=== PATIENT | female | born 1990 | race Caucasian/White ===

== ENCOUNTER → 2020-09-04 15:00 | Outpatient (CLI) | payer BC, SELFPAY ==
[2020-09-04 14:04] VITALS: BMI 40.3
[2020-09-04 18:39] LABS: Amphetamine Urine VISTA NEGATIVE (<1000 ng/mL); Barbiturate Urine VISTA NEGATIVE (< 200 ng/mL); Benzodiazepine Urine VISTA NEGATIVE (< 200 ng/mL); Cocaine Urine VISTA NEGATIVE (< 300 ng/mL); Ecstacy Urine VISTA NEGATIVE (< 500 ng/mL); Methadone Urine VISTA NEGATIVE (< 300 ng/mL); PCP Urine VISTA NEGATIVE (< 25 ng/mL); THC Urine VISTA NEGATIVE (< 50 ng/mL); Vista UDS pH Range 7
[2020-09-07 07:07] LABS: Chlamydia By Nucleic Acid AMP Negative (Negative)
[2020-09-07 08:43] LABS: Gonococcus By Nucleic Acid AMP Negative (Negative)
[2020-09-07 20:24] LABS: HPV APTIMA, High Risk Negative (Negative)
== END ==
PROVIDERS: PCP Family Medicine; Referring Provider Obstetrics & Gynecology; Visit Provider Obstetrics & Gynecology
DX: Z12.4 Encounter for screening for malignant neoplasm of cervix (principal); Z11.3 Encounter for screening for infections with a predominantly sexual mode of transmission; Z34.90 Encounter for supervision of normal pregnancy, unspecified, unspecified trimester
CPT/HCPCS: 80307; 87086; 87088; 87491; 87591; 87624; 88175; G0145

== ENCOUNTER → 2020-09-14 16:34 | Outpatient (CLI) | payer BC, SELFPAY ==
[2020-09-04 14:04] VITALS: BMI 40.3
[2020-09-14 17:11] LABS: Absolute Lymphocyte Count 2.31 X10^3/uL (0.83-4.51); Absolute Neutrophil Count 8.4 X10^3/uL (2.0-7.7); Basophil# 0.03 X10^3/uL; Basophil% 0.3 % (0-1); Eosinophil# 0.08 X10^3/uL; Eosinophils% 0.7 % (0-5); Hematocrit 38.7 % (37-47); Hemoglobin 12.2 g/dL (12.0-15.0); Lymphocyte # 2.31 X10^3/ul (4.0); Lymphocyte % 19.9 % (19-41); Mean Corp Hgb Conc 31.5 g/dL (32-36); Mean Corpuscular Hgb 26.4 pg (27.0-32.0); Mean Corpuscular Volume 83.8 fL (81-99); Mean Platelet Vol. 10.8 fl (6.2-12.0); Monocyte# 0.69 X10^3/uL; NRBC Flagged by Analyzer 0 % (0-5); Neutrophil # 8.41 X10^3/uL (2.7-7.7); Neutrophil % 72.6 % (47-70); Platelet Count 300 K/mm3 (150-450); RBC Distribution Width CV 14.4 % (11.6-14.6); RBC Distribution Width SD 43.9 fl (35.1-43.9); Red Blood Count 4.62 M/mm3 (4.2-5.4); White Blood Count 11.6 K/mm3 (4.4-11.0)
[2020-09-14 17:23] LABS: Glucose Challenge Gest 1H 50g 116 mg/dL (70-140)
[2020-09-14 17:48] LABS: NATERA MAILED SPECIMEN
[2020-09-15 09:53] LABS: HIV - WCH Non-Reactive (Nonreactive); Hepatitis B Surface Antigen Non-Reactive (Nonreactive); Hepatitis C Antibody Non-Reactive (Nonreactive); Rubella IgG Reactive (Nonreactive)
== END ==
PROVIDERS: PCP Family Medicine; Referring Provider Obstetrics & Gynecology; Visit Provider Obstetrics & Gynecology
DX: Z34.81 Encounter for supervision of other normal pregnancy, first trimester (principal); Z31.430 Encounter of female for testing for genetic disease carrier status for procreative management
CPT/HCPCS: 36415; 82950; 85025; 86703; 86762; 86803; 86850; 86900; 86901; 87340

== ENCOUNTER → 2020-10-09 14:10 | Outpatient (CLI) | payer BC, SELFPAY ==
[2020-10-04 14:48] VITALS: BMI 39.9
== END ==
PROVIDERS: PCP Family Medicine; Referring Provider Obstetrics & Gynecology; Visit Provider Obstetrics & Gynecology
DX: U07.1 COVID-19 (principal)
CPT/HCPCS: 87635; C9803; U0002

== ENCOUNTER → 2020-11-10 15:59 | Outpatient (CLI) | payer BC, SELFPAY ==
[2020-10-04 14:48] VITALS: BMI 39.9
[2020-11-01 11:15] VITALS: BMI 40.8
--- NOTE | 2020-11-10 16:08 | US_ITS ---
STUDY: SECOND AND THIRD TRIMESTER OBSTETRICAL ULTRASOUND REASON FOR EXAM: Female, 30 years old anatomy LMP: 06/30/2020 TECHNIQUE: Transabdominal and Transvaginal TECHNICAL QUALITY: Adequate. PRIOR ULTRASOUND: None. FINDINGS: There is a single intrauterine fetus. The fetus is in a cephalic presentation. There is demonstrated cardiac activity with a heart rate of 141 bpm. There is a normal amniotic fluid volume. The largest amniotic fluid pocket measures 5.12 cm. The amniotic fluid index (MIKE) is within normal limits. The placenta is anterior in location and is not low lying. There are Grade 0 placental changes. The cervix measures 4.3 cm in length. The adnexal regions are not visualized. BIOMETRY: BPD: 4.31 cm: 19 weeks, 0 days HC: 16.43 cm: 19 weeks, 1 days AC: 13.25 cm: 18 weeks, 5 days FL: 2.82 cm: 18 weeks, 4 days CI: 75.4% FL/BPD: 65.3% FL/HC: FL/AC: 21.3% HC/AC: 1.24 age by current US: 18 weeks, 5 days. MEET by current US: 04/08/2021. Estimated weight: 255 grams, +/- 30 grams, 31.2 %. Age by LMP: 19 weeks, 0 days. MEET by LMP: 04/06/2021. ANATOMY: Gender: Male Cranium: Normal lateral ventricles. Normal choroid plexus. Normal cerebellum. Normal cisterna magna. Suboptimal visualization. Chest: Normal 4-chamber heart. Abdomen/Pelvis: Normal diaphragm. Normal stomach. Normal abdominal wall. Normal cord insertion. Normal 3 vessel cord. Normal kidneys. Normal bladder. Spine: Suboptimal visualization due to maternal body habitus. Extremities: Normal bilateral upper extremities. Normal bilateral lower extremities. US/OB Anatomy Scan IMPRESSION: Single live intrauterine gestation with a mean gestational age of 18 weeks and 5 days. Follow-up recommended for assessment of the face/nose and lips as well as the spine. Electronically Signed: Seymour Murray MD at 9:18 EDT , Service support ,
== END ==
PROVIDERS: PCP Family Medicine; Referring Provider Obstetrics & Gynecology; Visit Provider Obstetrics & Gynecology
DX: Z34.90 Encounter for supervision of normal pregnancy, unspecified, unspecified trimester (principal)
CPT/HCPCS: 76805; 76817

== ENCOUNTER → 2020-11-20 13:51 | Outpatient (CLI) | payer BC, SELFPAY ==
[2020-11-01 11:15] VITALS: BMI 40.8
--- NOTE | 2020-11-20 13:56 | US_ITS ---
STUDY: SECOND AND THIRD TRIMESTER OBSTETRICAL ULTRASOUND - LIMITED REASON FOR EXAM: Female, 30 years old follow up anatomy images LMP: 06/30/2020. PRIOR ULTRASOUND: Comparison is made with prior study dated 11/10/2020. TECHNIQUE: Transabdominal TECHNICAL QUALITY: Adequate. FINDINGS: There is a single intrauterine fetus. The fetus is in a breech presentation. There is demonstrated cardiac activity with a heart rate of 150 bpm. There is a normal amniotic fluid volume. The largest amniotic fluid pocket measures 3.7 cm. The amniotic fluid index (MIKE) is within normal limits. The placenta is anterior in location and is not low lying. There are Grade 0 placental changes. The cervix measures 4.6 cm in length. BIOMETRY: Age by LMP: 20 weeks, 3 days. MEET by LMP: 04/06/2021. age by prior US: 20 weeks, 1 days. MEET by prior US: 04/08/2021. Evaluation of the face/nose/lips was obtained. No abnormality is seen. Suboptimal visualization of the lumbar and sacral region due to positioning. US/OB Limited (No Biometrics) IMPRESSION: Intrauterine gestation with a mean gestational age of 20 weeks and 1 day. Electronically Signed: Seymour Murray MD at 14:03 EDT , Service support ,
== END ==
PROVIDERS: PCP Family Medicine; Referring Provider Obstetrics & Gynecology; Visit Provider Obstetrics & Gynecology
DX: Z34.82 Encounter for supervision of other normal pregnancy, second trimester (principal); Z3A.17 17 weeks gestation of pregnancy
CPT/HCPCS: 76815

== ENCOUNTER → 2020-12-07 07:51 | Outpatient (CLI) | payer BC, SELFPAY ==
[2020-11-01 11:15] VITALS: BMI 40.8
[2020-12-01 15:30] VITALS: BMI 40.8
--- NOTE | 2020-12-07 07:54 | US_ITS ---
STUDY: SECOND AND THIRD TRIMESTER OBSTETRICAL ULTRASOUND - LIMITED REASON FOR EXAM: Female, 30 years old follow up anatomy-lumbar /sacral spine views LMP: 06/30/2020. PRIOR ULTRASOUND: Comparison is made with prior examination dated 11/20/2020. TECHNIQUE: Transabdominal TECHNICAL QUALITY: Adequate. FINDINGS: There is a single intrauterine fetus. The fetus is in a breech presentation. There is demonstrated cardiac activity with a heart rate of 155 bpm. There is a normal amniotic fluid volume. The largest amniotic fluid pocket measures 4.5 cm x 4.8 cm. The amniotic fluid index (MIKE) is within normal limits. The placenta is anterior in location and is not low lying. There are Grade 0 placental changes. The cervix measures 4.4 cm in length. Repeat imaging of the lumbar spine and sacrum was performed. These are normal. US/OB Limited (No Biometrics) IMPRESSION: Normal reexamination of the lumbar spine and sacrum. Electronically Signed: Seymour Murray MD at 9:19 EDT , Service support ,
== END ==
PROVIDERS: PCP Family Medicine; Referring Provider Obstetrics & Gynecology; Visit Provider Obstetrics & Gynecology
DX: Z34.82 Encounter for supervision of other normal pregnancy, second trimester (principal)
CPT/HCPCS: 76815

== ENCOUNTER → 2021-01-12 09:03 | Outpatient (CLI) | payer BC, SELFPAY ==
[2020-10-04 14:48] VITALS: BMI 39.9
[2021-01-12 08:32] VITALS: BMI 40.8
--- NOTE | 2021-01-12 09:05 | US_ITS ---
STUDY: SECOND AND THIRD TRIMESTER OBSTETRICAL ULTRASOUND - LIMITED REASON FOR EXAM: Female, 30 years old Growth- Covid affecting LMP: 06/30/2020. PRIOR ULTRASOUND: Comparison is made with prior examination dated 12/07/2020. TECHNIQUE: Transabdominal TECHNICAL QUALITY: Adequate. FINDINGS: There is a single intrauterine fetus. The fetus is in a cephalic presentation. There is demonstrated cardiac activity with a heart rate of 139 bpm. There is a normal amniotic fluid volume. The largest amniotic fluid pocket measures 5.1 cm x 9.8 cm. The amniotic fluid index (MIKE) is within normal limits. The placenta is anterior in location and is not low lying. There are Grade 0 placental changes. The cervix measures 4.2 cm in length. BIOMETRY: BPD: 6.94 cm: 28 weeks, 0 days HC: 26.87 cm: 29 weeks, 3 days AC: 24.34 cm: 28 weeks, 5 days FL: 5.38 cm: 28 weeks, 4 days Age by LMP: 28 weeks, 0 days. MEET by LMP: 04/06/2021. age by prior US: 27 weeks, 5 days. MEET by prior US: 04/08/2021. age by current US: 28 weeks, 5 days. MEET by current US: 04/01/2021. Estimated weight: 1251 grams, +/- 183 grams, 61 percentile. US/OB Limited With Biometrics IMPRESSION: Single live intrauterine gestation with a mean gestational age of 27 weeks and 5 days. The measurements obtained today follow within normal expected range. Electronically Signed: Seymour Murray MD at 12:28 EDT , Service support ,
[2021-01-12 09:10] LABS: Absolute Lymphocyte Count 2.48 X10^3/uL (0.83-4.51); Absolute Neutrophil Count 9.5 X10^3/uL (2.0-7.7); Basophil# 0.04 X10^3/uL; Basophil% 0.3 % (0-1); Eosinophil# 0.12 X10^3/uL; Eosinophils% 0.9 % (0-5); Hematocrit 34.4 % (37-47); Hemoglobin 10.9 g/dL (12.0-15.0); Lymphocyte # 2.48 X10^3/ul (0.83-4.51); Mean Corp Hgb Conc 31.7 g/dL (32-36); Mean Corpuscular Volume 85.4 fL (81-99); Mean Platelet Vol. 10.6 fl (6.2-12.0); Monocyte# 0.85 X10^3/uL; Monocyte% 6.5 % (0-10); NRBC Flagged by Analyzer 0 % (0-5); Neutrophil # 9.46 X10^3/uL (2.7-7.7); Neutrophil % 72.7 % (47-70); Platelet Count 257 K/mm3 (150-450); RBC Distribution Width CV 14.9 % (11.6-14.6); RBC Distribution Width SD 46.1 fl (35.1-43.9); Red Blood Count 4.03 M/mm3 (4.2-5.4)
[2021-01-12 09:46] LABS: Glucose Challenge Gest 1H 50g 125 mg/dL (70-140)
[2021-01-12 10:01] LABS: Syphilis Antibodies Non-reactive
== END ==
PROVIDERS: Obstetrics & Gynecology; PCP Family Medicine; Referring Provider Obstetrics & Gynecology; Visit Provider Obstetrics & Gynecology
DX: O98.519 Other viral diseases complicating pregnancy, unspecified trimester (principal); U07.1 COVID-19; Z13.1 Encounter for screening for diabetes mellitus; O26.892 Other specified pregnancy related conditions, second trimester; Z67.91 Unspecified blood type, Rh negative; Z3A.00 Weeks of gestation of pregnancy not specified
CPT/HCPCS: 36415; 76816; 82950; 85025; 86780; 86850; 86900; 86901

== ENCOUNTER → 2021-02-08 08:58 | Outpatient (CLI) | payer BC, SELFPAY ==
[2020-10-04 14:48] VITALS: BMI 39.9
[2021-02-08 08:24] VITALS: BMI 40.8
--- NOTE | 2021-02-08 09:01 | US_ITS ---
STUDY: SECOND AND THIRD TRIMESTER OBSTETRICAL ULTRASOUND - LIMITED REASON FOR EXAM: Female, 30 years old routine survey, history of Covid LMP: 06/30/2020 PRIOR ULTRASOUND: 01/12/2021 TECHNIQUE: Transabdominal TECHNICAL QUALITY: Adequate. FINDINGS: There is a single intrauterine fetus. The fetus is in a cephalic presentation. There is demonstrated cardiac activity with a heart rate of 141 bpm. There is a normal amniotic fluid volume. The largest amniotic fluid pocket measures 5.2 cm. The amniotic fluid index (MIKE) is 14.8 cm. The placenta is anterior in location and is not low lying. There are Grade 2 placental changes. The cervix measures 3.8 cm in length. BIOMETRY: BPD: 8.0 cm: 32 weeks, 1 days HC: 30 cm: 33 weeks, 1 days AC: 28.2 cm: 32 weeks, 1 days FL: 6.4 cm: 32 weeks, 6 days Age by LMP: 31 weeks, 6 days. MEET by LMP: 04/06/2021. age by prior US: 32 weeks, 4 days. MEET by prior US: 04/01/2021. age by current US: 32 weeks, 3 days. MEET by current US: 04/02/2021. Estimated weight: 1989 grams, +/- 298 grams, 60 percentile. US/OB Limited With Biometrics IMPRESSION: Single live intrauterine at 32 weeks, 3 days by current ultrasound with MEET of 04/02/2021. Heart rate at 141 bpm. No suspicious sonographic findings, normal growth noted since the previous study Electronically Signed: Benjamin Gutierrez MD at 8:26 EDT , Service support ,
== END ==
PROVIDERS: PCP Family Medicine; Referring Provider Obstetrics & Gynecology; Visit Provider Obstetrics & Gynecology
DX: O98.519 Other viral diseases complicating pregnancy, unspecified trimester (principal); U07.1 COVID-19; Z3A.00 Weeks of gestation of pregnancy not specified
CPT/HCPCS: 76816

== ENCOUNTER → 2021-02-22 09:24 | Outpatient (CLI) | payer BC, SELFPAY ==
[2021-02-22 09:07] VITALS: BMI 40.8
[2021-02-22 09:48] LABS: Absolute Lymphocyte Count 2.01 X10^3/uL (0.83-4.51); Absolute Neutrophil Count 8.8 X10^3/uL (2.0-7.7); Basophil# 0.03 X10^3/uL; Basophil% 0.2 % (0-1); Eosinophils% 0.8 % (0-5); Hematocrit 35.5 % (37-47); Hemoglobin 11.5 g/dL (12.0-15.0); Lymphocyte # 2.01 X10^3/ul (0.83-4.51); Lymphocyte % 16.7 % (19-41); Mean Corp Hgb Conc 32.4 g/dL (32-36); Mean Corpuscular Hgb 28.2 pg (27.0-32.0); Mean Platelet Vol. 10.5 fl (6.2-12.0); Monocyte# 0.97 X10^3/uL; NRBC Flagged by Analyzer 0 % (0-5); Neutrophil # 8.84 X10^3/uL (2.7-7.7); Neutrophil % 73.4 % (47-70); Platelet Count 233 K/mm3 (150-450); RBC Distribution Width CV 14.8 % (11.6-14.6); RBC Distribution Width SD 47.3 fl (35.1-43.9); Red Blood Count 4.08 M/mm3 (4.2-5.4); White Blood Count 12.1 K/mm3 (4.4-11.0)
[2021-02-22 17:34] LABS: Xtra Tube EP Lab EXTRA TUBE
== END ==
PROVIDERS: Obstetrics & Gynecology; PCP Family Medicine; Referring Provider Nurse Practitioner Women's Health; Visit Provider Nurse Practitioner Women's Health
DX: O99.019 Anemia complicating pregnancy, unspecified trimester (principal); D64.9 Anemia, unspecified; Z3A.00 Weeks of gestation of pregnancy not specified
CPT/HCPCS: 36415; 85025

== ENCOUNTER → 2021-03-08 08:05 | Outpatient (CLI) | payer BC, SELFPAY ==
[2020-10-04 14:48] VITALS: BMI 39.9
--- NOTE | 2021-03-08 08:09 | US_ITS ---
STUDY: SECOND AND THIRD TRIMESTER OBSTETRICAL ULTRASOUND - LIMITED REASON FOR EXAM: Female, 30 years old Growth- Covid affecting LMP: 06/30/2020. PRIOR ULTRASOUND: Comparison is made with prior examination dated 02/08/2021. TECHNIQUE: Transabdominal TECHNICAL QUALITY: Adequate. FINDINGS: There is a single intrauterine fetus. The fetus is in a cephalic presentation. There is demonstrated cardiac activity with a heart rate of 147 bpm. There is a normal amniotic fluid volume. The largest amniotic fluid pocket measures 5.06 cm. The amniotic fluid index (MIKE) is 16.3 cm. The placenta is anterior in location and is not low lying. There are Grade 3 placental changes. The cervix measures 4.5 cm in length. BIOMETRY: BPD: 8.66 cm: 34 weeks, 6 days HC: 32.83 cm: 37 weeks, 2 days AC: 32.21 cm: 36 weeks, 0 days FL: 7.22 cm: 36 weeks, 6 days Age by LMP: 35 weeks, 6 days. MEET by LMP: 04/06/2021. age by prior US: 36 weeks, 3 days. MEET by prior US: 04/02/2021. age by current US: 36 weeks, 1 days. MEET by current US: 04/04/2021. Estimated weight: 2898 grams, +/- 435 grams, 62 percentile. US/OB Limited With Biometrics IMPRESSION: Single live intrauterine gestation with a mean gestational age of 36 weeks and 3 days. The measurements obtained today fall within the normal expected range. Electronically Signed: Seymour Murray MD at 13:49 EDT , Service support ,
== END ==
PROVIDERS: PCP Family Medicine; Referring Provider Obstetrics & Gynecology; Visit Provider Obstetrics & Gynecology
DX: O98.519 Other viral diseases complicating pregnancy, unspecified trimester (principal); U07.1 COVID-19; Z3A.36 36 weeks gestation of pregnancy
CPT/HCPCS: 76816

== ENCOUNTER → 2021-03-15 10:50 | Outpatient (CLI) | payer BC, SELFPAY | PROVIDERS: PCP Family Medicine; Referring Provider Obstetrics & Gynecology; Visit Provider Obstetrics & Gynecology | DX: Z34.82 Encounter for supervision of other normal pregnancy, second trimester (principal) | CPT/HCPCS: 87081 ==

== ENCOUNTER 2021-04-13 18:45 | Inpatient (IN) | payer BC, SELFPAY ==
[2021-04-13 19:32] VITALS: BP 121/69; PULSE 82; TEMP 37.1; O2SAT 98
[2021-04-13 19:42] VITALS: BMI 44.0
[2021-04-13] MEDS: Lactated Ringers 1,000 ML 50 ML IV (19:55)
[2021-04-13 20:15] LABS: Absolute Lymphocyte Count 1.77 X10^3/uL (0.83-4.51); Basophil# 0.03 X10^3/uL; Basophil% 0.3 % (0-1); Eosinophil# 0.06 X10^3/uL; Eosinophils% 0.6 % (0-5); Hemoglobin 11.8 g/dL (12.0-15.0); Lymphocyte # 1.77 X10^3/ul (0.83-4.51); Lymphocyte % 16.4 % (19-41); Mean Corp Hgb Conc 32.8 g/dL (32-36); Mean Corpuscular Hgb 28.2 pg (27.0-32.0); Mean Corpuscular Volume 85.9 fL (81-99); Mean Platelet Vol. 11.3 fl (6.2-12.0); Monocyte# 0.87 X10^3/uL; NRBC Flagged by Analyzer 0 % (0-5); Neutrophil # 8.03 X10^3/uL (2.7-7.7); Neutrophil % 74.1 % (47-70); Platelet Count 223 K/mm3 (150-450); RBC Distribution Width CV 14.9 % (11.6-14.6); Red Blood Count 4.19 M/mm3 (4.2-5.4); White Blood Count 10.8 K/mm3 (4.4-11.0)
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
[2021-04-13] MEDS: miSOPROStol 25 MCG TABLET PO (20:44)
[2021-04-13 21:09] VITALS: BP 134/72; PULSE 70; TEMP 36.6; O2SAT 97
[2021-04-14] VITALS (61 sets, daily range): BP systolic 110–149; BP diastolic 52–84; PULSE 49–90; RESP 18; TEMP 36.2–37.5; O2SAT 83–100
[2021-04-14] MEDS: miSOPROStol 50 MCG TABLET PO (01:25)
[2021-04-14] MEDS: miSOPROStol 25 MCG TABLET PO (07:23)
[2021-04-14] MEDS: 0.9% Normal Saline Single 100 ML IV.SOLN. INTRA-UTER (09:01)
--- NOTE | 2021-04-14 09:21 | PCM.PN.BLA ---
Progress Note Patient seen and examined. Has received cytotec x3. cervix /-3. Roberson bulb placed without difficulty. Will continue with cytotec while FB in place. FHT Cat I. Occasional ctx on toco, but patient not uncomfortable. Patient with isolated elevated BP - will send labs if continue to be elevated. Continue current plan of care.
[2021-04-14] MEDS: Oxytocin 30 units/NS 500 ml 30 UNITS/500 ML IV.SOLN IV (11:31)
[2021-04-14] MEDS: Lactated Ringers 500 ML 999 ML IV ×3 (11:43→15:43)
--- NOTE | 2021-04-14 13:13 | NURSING ---
Jaquelin NGUYEN unable to enter epidural orders due to [facility] spelling error - this nurse entered orders for her under direction of Andrzej
[2021-04-14] MEDS: fentaNYL-bupivacaine (epidural) 100 ML BAG EPIDURAL (13:38)
[2021-04-14] MEDS: Ondansetron 4 MG/2 ML Vial IV (15:34)
--- NOTE | 2021-04-14 16:35 | PCM.PN.BLA ---
Progress Note Came to bedside to evaluate due to deep variable decelerations. Pitocin turned off. Oxygen in place. Patient repositioned in hands and knees. Decelerations resolved, but still periods of minimal variability. Cervix rechecked - remains . Small amount of cervical swelling noted. Will reposition on side with peanut ball. Will restart pitocin when able.
[2021-04-14] MEDS: Oxytocin 30 units/NS 500 ml 30 UNITS/500 ML IV.SOLN 334 UNITS IV (19:04)
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
--- NOTE | 2021-04-14 19:25 | PCM.DC ---
Discharge Instructions Diet Discharge Diet: No restrictions Activity Discharge Activity: Return to Normal Activity, May Not Drive (while taking narcotic pain medications.) and May Shower May resume sexual activity in: 4-6 weeks Dressing / Incision Call your doctor if your incision/area has: Continuous Slow Oozing, Sudden Increased Bleeding, Increased Pain/ Swelling, Increased Redness and Foul Smelling Discharge Follow Up Care When: Call to make an appointment with your doctor in 6 weeks. If you had elevated Blood Pressure or 4th degree laceration you will need to be seen in 2 weeks. Test Results: Test results from this visit will be discussed in further detail at your follow-up appointment, if applicable. Discharge Plan Admission Admit Date/Time: 04/13/21 18:45 Primary Reason for Your Visit: Induction Attending Provider: Alva Brown Primary Care Provider: Chu Rincon Discharge Orders/Prescriptions Prescriptions: New ibuprofen 800 mg tablet 800 mg PO Q8H PRN (Reason: pain) Qty: 60 RF: 1 Continued PNV-DHA 27 mg iron-1 mg -300 mg capsule 1 cap PO DAILY RF: 0 omeprazole 20 mg capsule,delayed release(DR/EC) 20 mg PO DAILY RF: 0 Baby Aspirin 81 mg OTHER DAILY RF: 0 Referrals / Follow Up: Chu Rincon MD [Primary Care Provider] - Disposition Disposition (needs filled in before D/C Order can be placed): Home, Self Care
[2021-04-14] MEDS: Ibuprofen 600 MG Tablet PO (20:06)
[2021-04-15] MEDS: Acetaminophen 500 MG Tablet 1000 MG PO (01:50)
[2021-04-15 04:05] VITALS: BP 123/61; PULSE 66; RESP 16; TEMP 36.3
[2021-04-15 08:22] VITALS: BP 122/60; PULSE 68; RESP 16; TEMP 36.8
[2021-04-15] MEDS: Aspirin 81 MG TAB.CHEW PO (08:25)
[2021-04-15] MEDS: Pantoprazole Sodium 20 MG Tablet PO (09:56)
--- NOTE | 2021-04-15 10:12 | PCM.PN.OB ---
Subjective Subjective Patient doing well without complaints. Tolerating PO. Ambulating and voiding without difficulty. Breast feeding well. Denies chest pain, shortness of breath, calf pain/swelling, fevers, chills, lightheadedness. Objective Data Objective Data Vital Signs: Vital Signs Temp Pulse Resp BP Pulse Ox 98.2 F 68 16 122/60 H 100 04/15/21 08:22 04/15/21 08:22 04/15/21 08:22 04/15/21 08:22 04/14/21 18:14 Oxygen Delivery Method Room Air Weight: 298 lb 8.094 oz Body Mass Index (BMI) 44.0 Intake & Output: Intake and Output for Last 24 Hours 04/13/21 04/14/21 04/15/21 23:59 23:59 23:59 Intake Total 145 / 145 5231.73 / 5231.73 Output Total 800 / 800 400 / 400 Balance 145 / 145 4431.73 / 4431.73 -400 / -400 Lab / Micro Data Result Diagrams: 04/13/21 19:55 Labs: Laboratory Results - last 24 hr 04/14/21 21:45: Screen Cancelled, Baby's Blood Type Cancelled, Baby's SAGE Cancelled 04/14/21 22:20: Screen NEGATIVE, Baby's Blood Type A POSITIVE, Baby's SAGE NEGATIVE Micro: Microbiology 04/13/21 20:00 Nasal Secretion SARS-CoV-2 Antigen (Rapid) - Final ROS Constitutional Constitutional: Denies fever(s) Cardiovascular Cardiovascular: Denies chest pain, dyspnea or lightheadedness Gastrointestinal Gastrointestinal: Reports abdominal pain; Denies constipation or diarrhea Neurologic Neurologic: Denies dizziness or headache(s) Physical Exam Const alert, oriented x3, no apparent distress, average body habitus, healthy appearing and well nourished HEENT normocephalic Head and Scalp: atraumatic Eyes PERRL and EOMs intact bilaterally Neck full ROM Lymph Lymphatic: no lymphadenopathy noted Resp normal respiratory effort, no retractions and no use of accessory muscles Cardio regular rate GI soft to palpation, non-tender and non-distended Palpation: other Other Details: fundus firm Extremity normal to inspection and no clubbing, cyanosis or edema Skin no rashes or lesions noted Neuro no focal motor deficits and no sensory deficits noted Psych mental status grossly normal, affect normal and speech normal Assessment & Plan (1) Vaginal delivery: COMMENT: GP IOL LT 04/14 [place] PLAN: s/p PPD # 1 1. routine post delivery care 2. breast feeding- support given 3. rh negative 4. rubella immune
[2021-04-15 12:10] VITALS: BP 127/50; PULSE 75; RESP 16; TEMP 36.4
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
[2021-04-15 16:16] VITALS: BP 139/60; PULSE 78; RESP 16; TEMP 36.8
[2021-04-15] MEDS: Ibuprofen 600 MG Tablet PO (16:26)
[2021-04-15 17:10] VITALS: BP 126/65; PULSE 77
[2021-04-15 20:44] VITALS: BP 136/64; PULSE 64; RESP 18; TEMP 36.6; O2SAT 98
[2021-04-15] MEDS: Benzocaine/Lanolin/Aloe Vera 1 SPRAY EACH TOPICAL (20:51)
[2021-04-16 02:22] VITALS: BP 128/67; PULSE 72; RESP 18; TEMP 36.6; O2SAT 95
[2021-04-16] MEDS: Ibuprofen 600 MG Tablet PO (05:16)
--- NOTE | 2021-04-16 07:48 | PN.OBGYN_ITS ---
Subjective Subjective Patient doing well without complaints. Tolerating PO. Ambulating and voiding without difficulty. Breast feeding well. Denies chest pain, shortness of breath, calf pain/swelling, fevers, chills, lightheadedness. Objective Data Objective Data Vital Signs: Vital Signs Temp Pulse Resp BP Pulse Ox 97.8 F 72 18 128/67 H 95 04/16/21 02:22 04/16/21 02:22 04/16/21 02:22 04/16/21 02:22 04/16/21 02:22 Oxygen Delivery Method Room Air Weight: 298 lb 8.094 oz Body Mass Index (BMI) 44.0 Intake & Output: Intake and Output for Last 24 Hours 04/14/21 04/15/21 04/16/21 23:59 23:59 23:59 Intake Total 5231.73 / 5231.73 Output Total 800 / 800 400 / 400 Balance 4431.73 / 4431.73 -400 / -400 Lab / Micro Data Result Diagrams: 04/13/21 19:55 Micro: Microbiology 04/13/21 20:00 Nasal Secretion SARS-CoV-2 Antigen (Rapid) - Final ROS Constitutional Constitutional: Denies fever(s) Cardiovascular Cardiovascular: Denies chest pain, dyspnea or lightheadedness Gastrointestinal Gastrointestinal: Reports abdominal pain; Denies constipation or diarrhea Neurologic Neurologic: Denies dizziness or headache(s) Physical Exam Const alert, oriented x3, no apparent distress, average body habitus, healthy appearing and well nourished HEENT normocephalic Head and Scalp: atraumatic Eyes PERRL and EOMs intact bilaterally Neck full ROM Lymph Lymphatic: no lymphadenopathy noted Resp normal respiratory effort, no retractions and no use of accessory muscles Cardio regular rate GI soft to palpation, non-tender and non-distended Inspection: incision intact and other (dressing in place) Palpation: other Other Details: fundus firm Extremity normal to inspection and no clubbing, cyanosis or edema Skin no rashes or lesions noted Neuro no focal motor deficits and no sensory deficits noted Psych mental status grossly normal, affect normal and speech normal Assessment & Plan (1) Vaginal delivery: COMMENT: GP IOL LT 04/14 [place] PLAN: s/p PPD # 1 1. routine post delivery care 2. breast feeding- support given 3. rh negative 4. rubella immune
[2021-04-16 08:03] VITALS: BP 121/51; PULSE 64; RESP 18; TEMP 36.2
== END 2021-04-16 11:50 | disposition home or self-care (01) | DRG 807 ==
PROVIDERS: Obstetrics & Gynecology; Admitting Provider Obstetrics & Gynecology; PCP Family Medicine; Visit Provider Obstetrics & Gynecology
DX: O48.0 Post-term pregnancy (principal); Z37.0 Single live birth; O70.1 Second degree perineal laceration during delivery; O76 Abnormality in fetal heart rate and rhythm complicating labor and delivery; Z3A.41 41 weeks gestation of pregnancy; Z67.91 Unspecified blood type, Rh negative; Z79.82 Long term (current) use of aspirin; Z87.891 Personal history of nicotine dependence; Z83.3 Family history of diabetes mellitus; Z86.16 Personal history of COVID-19; Z65.9 Problem related to unspecified psychosocial circumstances
CPT/HCPCS: 59025; 59050; 85025; 85461; 86850; 86900; 86901; 87426; 90384; 99218; J7120; G0378; J2405; J2790

== ENCOUNTER → 2022-02-19 | Outpatient (CLI) | payer OTHER, SELFPAY ==
[2022-02-20 08:02] LABS: Rubella IgG Reactive (Nonreactive)
[2022-02-21 16:51] LABS: Mumps Antibody,IgG 16.6 AU/mL (Immune >10.9)
== END | disposition home or self-care (01) ==
LOC: MTLAB 12:42
PROVIDERS: PCP Family Medicine; Referring Provider Family Medicine; Visit Provider Family Medicine
DX: Z78.9 Other specified health status (principal)
CPT/HCPCS: 36415; 86735; 86762; 86765

== ENCOUNTER → 2023-03-06 | Outpatient (CLI) | payer OTHER, SELFPAY ==
[2023-03-08 07:07] LABS: V-Zoster IgG (Immunity) 3665 index (Immune >165)
== END | disposition home or self-care (01) ==
PROVIDERS: PCP Family Medicine; Referring Provider Family Medicine; Visit Provider Family Medicine
DX: Z78.9 Other specified health status (principal)
CPT/HCPCS: 36415; 86787

== ENCOUNTER → 2024-09-23 | Outpatient (CLI) | payer OTHER, SELFPAY ==
[2024-09-23 12:32] LABS: Absolute Lymphocyte Count 2.53 X10^3/uL (0.83-4.51); Absolute Neutrophil Count 8.7 X10^3/uL (2.0-7.7); Basophil# 0.06 X10^3/uL; Basophil% 0.5 % (0-1); Eosinophil# 0.15 X10^3/uL; Eosinophils% 1.2 % (0-5); Hematocrit 36.9 % (37-47); Lymphocyte # 2.53 X10^3/ul (0.83-4.51); Lymphocyte % 20.5 % (19-41); Mean Corp Hgb Conc 32.5 g/dL (32-36); Mean Corpuscular Hgb 27.3 pg (27.0-32.0); Mean Corpuscular Volume 83.9 fL (81-99); Mean Platelet Vol. 10.7 fl (6.2-12.0); Monocyte# 0.86 X10^3/uL; NRBC Flagged by Analyzer 0 % (0-5); Neutrophil # 8.69 X10^3/uL (2.7-7.7); Neutrophil % 70.5 % (47-70); Platelet Count 294 K/mm3 (150-450); RBC Distribution Width SD 43.3 fl (35.1-43.9); White Blood Count 12.3 K/mm3 (4.4-11.0)
[2024-09-23 13:29] LABS: HIV Nonreactive (Nonreactive)
[2024-09-23 13:34] LABS: Hepatitis B Surface Antigen Nonreactive (Nonreactive); Hepatitis C Antibody Nonreactive (Nonreactive); Rubella IgG REAC (Nonreactive); Syphilis Antibodies Nonreactive (Nonreactive)
[2024-09-23 20:59] LABS: Hemoglobin A1c 5.6 % (<=5.6)
[2024-09-24 21:07] LABS: Chlamydia By Nucleic Acid AMP Negative (Negative); Gonococcus By Nucleic Acid AMP Negative (Negative)
[2024-09-28 15:08] LABS: HPV APTIMA, High Risk Negative (Negative)
== END | disposition home or self-care (01) ==
LOC: BWCLAB 09:58
PROVIDERS: Referring Provider Advanced Practice Midwife; Visit Provider Advanced Practice Midwife
DX: O09.521 Supervision of elderly multigravida, first trimester (principal); Z3A.00 Weeks of gestation of pregnancy not specified
CPT/HCPCS: 36415; 83036; 85025; 86703; 86762; 86780; 86803; 86850; 86900; 86901; 87086; 87340; 87491; 87591; 87624; 88175; G0145

== ENCOUNTER → 2024-10-04 | Outpatient (CLI) | payer OTHER, SELFPAY | END | disposition home or self-care (01) | PROVIDERS: Referring Provider Obstetrics & Gynecology; Visit Provider Obstetrics & Gynecology | DX: Z34.82 Encounter for supervision of other normal pregnancy, second trimester (principal) | CPT/HCPCS: 36415 ==

== ENCOUNTER → 2024-11-17 | Outpatient (CLI) | payer OTHER, SELFPAY | END | disposition home or self-care (01) | PROVIDERS: Referring Provider Nurse Practitioner Women's Health; Visit Provider Nurse Practitioner Women's Health | DX: Z36.9 Encounter for antenatal screening, unspecified (principal) | CPT/HCPCS: 36415 ==

== ENCOUNTER → 2025-01-24 | Outpatient (CLI) | payer OTHER, SELFPAY ==
[2025-01-24 12:34] LABS: Hematocrit 33.4 % (37-47); Hemoglobin 10.6 g/dL (12.0-15.0); Immature Granulocytes Count 0.090 X10^3/uL (0.0-0.0); Mean Corp Hgb Conc 31.7 g/dL (32-36); Mean Corpuscular Volume 85.4 fL (81-99); Mean Platelet Vol. 10.7 fl (6.2-12.0); NRBC Flagged by Analyzer 0 % (0-5); Platelet Count 262 K/mm3 (150-450); RBC Distribution Width CV 15.7 % (11.6-14.6); RBC Distribution Width SD 48.2 fl (35.1-43.9); Red Blood Count 3.91 M/mm3 (4.2-5.4); White Blood Count 13.8 K/mm3 (4.4-11.0)
[2025-01-24 13:24] LABS: Glucose Challenge Gest 1H 50g 150 mg/dL (70-140); HIV Nonreactive (Nonreactive); Syphilis Antibodies Nonreactive (Nonreactive)
== END | disposition home or self-care (01) ==
PROVIDERS: Visit Provider Nurse Practitioner Women's Health
DX: O09.92 Supervision of high risk pregnancy, unspecified, second trimester (principal); Z3A.00 Weeks of gestation of pregnancy not specified
CPT/HCPCS: 36415; 82950; 85025; 86703; 86780; 86850; 86900; 86901

== ENCOUNTER → 2025-01-25 | Outpatient (CLI) | payer OTHER, SELFPAY ==
--- OUTSIDE RECORDS SUMMARY | 2025-01-25 06:56 | XMS RPT_ITS | CCD ---
Author Organization [facility] CliniSyny Care Team Providers Care Electrician Bus Name Role Phone Bing Rich CNM Attending Provider [phone] Bing Rich CNM Referring Provider [phone] Dr. Aye Dey DO Attending Provider Dr. Aye Dey DO Referring Provider Brooks LUMBER LOADER-CGenie Attending Provider [phone] Brooks LUMBER LOADER-C, Genie Referring Provider [phone] NO PRIMARY CARE, Primary Care Unavailable COSTA CERRATO Attending Unavailable BING RICH Referring Unavailable Farheen MEDINA, Dr. Mancera Attending Provider [phone] Brooks LUMBER LOADER, Genie Attending Unavailable Brooks LUMBER LOADER, Genie Referring Unavailable Brooks CISNEROS, Genie Attending Unavailable Aye Dey Attending Unavailsammi Guy NP, Genie Attending Unavailable Bing Rich Attending Unavailable Brooks LUMBER LOADER, Genie Attending Unavailable Fiordaliza Zhong Attending Unavailable Aye Dey Referring UnavailAye Guillermo Attending UnavailBing Mahoney Referring Unavailable Bing Rich Attending Unavailable Medications Current Medications Medication Drug Class(es) Dates Sig (Normalized) Sig (Original) famotidine 40 mg oral tablet (2 sources) Histamine-2 Receptor Antagonist Start: 01-12-2025 take 1 tablet by mouth twice daily as needed for gastroesophageal reflux disease Famotidine (Pepcid) 40 mg tablet Active 40 mg PO TWICE A DAY as needed for heartburn 30 3 January 12, 2025 12:00am Multivit 69-Yzwm-Dywlff 1-Dha (Pnv-Dha) 27 mg iron-1 mg -300 mg capsule (8 sources) Start: 08-29-2020 Multivit 35-Ngzg-Xmpawn 1-Dha (Pnv-Dha) 27 mg iron-1 mg -300 mg capsule Active 1 NMA PO DAILY August 29, 2020 1:00am Start: 08-29-2020 Multivit 47-Ir on-Folate 1-Dha (Pnv-Dha) 27 mg iron-1 mg -300 mg capsule Active 1 NMA PO DAILY August 29, 2020 1:00am Start: 08-29-2020 take 1 capsule by mo [facility] once daily Multivit 30-Agdk-Ygxqjw 1-Dha (Pnv-Dha) 27 mg iron-1 mg -300 mg capsule Active 1 CAP PO DAILY August 29, 2020 1:00am Completed/Discontinued Medications Medication Drug Class(es) Dates Sig (Normalized) Sig (Original) Aspirin (8 sources) Platelet Aggregation Inhibitor, Nonsteroidal Anti-inflammatory Drug Start: 04-13-2021 End: 05-30-2021 Baby Aspirin Discontinued 81 mg OTHER DAILY April 13, 2021 12:00am May 30, 2021 12:25pm see provider Start: 04-13-2021 End: 05-30-2021 Baby Aspirin Discontinued 81 mg OTHER DAILY April 13, 2021 12:00am May 30, 2021 12:25pm Start: 04-13-2021 End: 05-30-2021 Baby Aspirin Discontinued 81 MG OTHER DAILY April 13, 2021 12:00am May 30, 2021 12:25pm docusate sodium 100 mg oral capsule (6 sources) Start: 09-14-2024 End: 01-12-2025 take 1 capsule by mouth once daily Docusate Sodium (Colace) 100 mg capsule Discontinued 100 mg PO daily September 14, 2024 1:00am January 12, 2025 10:00am ibuprofen 800 mg oral tablet (8 sources) Nonsteroidal Anti-inflammatory Drug Start: 04-14-2021 End: 09-14-2024 take 1 tablet by mouth every eight hours as needed for pain Ibuprofen 800 mg tablet Discontinued 800 mg PO Q8H as needed for pain 60 1 April 14, 2021 12:00am September 14, 2024 9:24am loratadine 10 mg oral tablet (4 sources) Start: 10-22-2024 End: 01-12-2025 take 1 tablet by mouth once daily as needed Loratadine (Claritin) 10 mg tablet Discontinued 10 mg PO daily as needed October 22, 2024 12:00am January 12, 2025 10:00am omeprazole 20 mg delayed release oral capsule (8 sources) Proton Pump Inhibitor Start: 02-08-2021 End: 05-30-2021 take 1 capsule by mouth once daily Omeprazole 20 mg capsule,delayed release(DR/EC) Discontinued 20 mg PO DAILY February 08, 2021 12:00am May 30, 2021 12:25pm indigestion Problems Active Problems Problem Classification Problem Date Documented Date Episodic/Chronic Other complications of (20 sources) Severe obesity complicating ; Translations: [Obesity complicating , unspecified trimester] 09-24-2024 Chronic Comment on above: [id number] nl 1 tm hga1c. recom mend weekly bpps 34 on, growth US 32 and 36. Other complications of (1 source) Obesity complicating , unspecified trimester; Translations: [Obesity complicating , unspecified trimester] Onset: 12-16-2024 Chronic Other complications of (20 sources) RhD negative; Translations: [Other specified related conditions, unspecified trimester] 04-17-2021 Episodic Comment on above: rhogam given at 28 w eeks and PRN O-, Rhogam @ 28 wks O-, Rhogam @ 28 wks, Given 01/24/25 Other complications of (20 sources) High risk ; Translations: [Supervision of high risk , unspecified, unspecified trimester] 09-23-2024 Episodic Comment on above: PRR, , MEET 04/17, RAEGAN Warner, [place] PRR, , MEET 04/17, boy PC Dougherty, [place] Other complications of (20 sources) Advanced maternal age ; Translations: [Elderly multigravida, unspecified as to episode of care or not applicable] 09-14-2024 Episodic Other complications of (1 source) Supervision of high risk , unspecified, second trimester; Translations: [Supervision of high risk , unspecified, second trimester] Onset: 01-12-2025 Episodic Other complications of (1 source) Other specified related conditions, unspecified trimester; Translations: [Other specified related conditions, unspecified trimester] Onset: 12-16-2024 Episodic Other complications of (1 source) Supervision of elderly multigravida, first trimester; Translations: [Supervision of elderly multigravida, first trimester] Onset: 10-25-2024 Episodic Other nutritional; endocrine; and metabolic disorders (1 source) Morbid (severe) obesity due to excess calories; Translations: [Morbid (severe) obesity due to excess calories] Onset: 12-16-2024 Chronic Other and delivery including normal (20 sources) Vaginal delivery; Translations: [Encounter for full-term uncomplicated delivery] Onset: 10-09-2024 04-17-2021 Episodic Comment on above: GP IOL LT 04/14 B oy-Dougherty elects NIPT with gen radha, insufficient DNA, will accept a repeat sample elects NIPT with gen radha, insufficient DNA for 1st and repeat sample elects NIPT with gen radha, insufficient DNA for 1st and repeat sample, AFP Neg. Nml anatomy. elects NIPT with gen radha, insufficient DNA X 2; AFP Neg. Nml anatomy. Other screening for suspected conditions (not mental disorders or infectious disease) (9 sources) Abnormal cervical Papanicolaou smear; Translations: [Unspecified abnormal cytological findings in specimens from cervix uteri] Onset: 11-23-2024 12-29-2020 Episodic Comment on above: pap done Residual codes; unclassified (8 sources) Family history of cystic fibrosis; Translations: [Family history of other endocrine, nutritional and metabolic diseases] 12-29-2020 Episodic Comment on above: Brendan's 1st cousin Residual codes; unclassified (1 source) Unspecified blood type, Rh negative; Translations: [Unspecified blood type, Rh negative] Onset: 12-16-2024 Episodic Residual codes; unclassified (1 source) 22 weeks gestation of ; Translations: [22 weeks gestation of ] Onset: 12-16-2024 Episodic Residual codes; unclassified (1 source) 18 weeks gestation of ; Translations: [18 weeks gestation of ] Onset: 11-17-2024 Episodic Screening and history of mental health and substance abuse codes (20 sources) Ex-smoker; Translations: [Personal history of nicotine dependence] Onset: 11-17-2024 09-14-2024 Episodic Comment on above: Quit 2020 Varicose veins of lower extremity (20 sources) Bilateral spider veins of lower limbs; Translations: [Asymptomatic varicose veins of bilateral lower extremities] Onset: 11-17-2024 09-14-2024 Episodic Comment on above: upper thighs Past or Other Problems Problem Classification Problem Date Documented Da te Episodic/Chronic Other complications of (1 source) Supervision of high risk , unspecified, unspecified trimester; Translations: [Supervision of high risk , unspecified, unspecified trimester] Onset: 09-23-2024 Episodic Residual codes; unclassified (1 source) 10 weeks gestation of ; Translations: [10 weeks gestation of ] Onset: 09-23-2024 Episodic Results Test Name Value Interpretation Reference Range Facility Laboratory - Chemistry and C hemistry - challengeOrdered By: Genie Guy on 01-12-2025 Glucose Ql (U) Negative [facility] - UrinalysisOrder ed By: Genie Guy on 01-12-2025 Protein Ql (U) Negative [facility] Clinical Education Manager Office Visit Reporton 01-12-2025 Clinical Education Manager Office Visit Report [facility] [address], [address] [place] [address] OFFICE VISIT Date of Service: 01/12/25 MR#: [id number] Acct: [id number] Name: DEMETRIUS FERNANDES Rep #: [id number] : 1990 Provider: MARY JANE godoy Age/Sex: 34/F [place] [facility] [place]: [place]igned Intake Vital Signs 11/17/24 08:40 12/16/24 09:30 01/12/25 09:43 Height 5 ft 9 in 5 ft 9 in 5 ft 9 in Weight: 328 lb 8 oz BMI 48.4 BP 130/82 H Intake Visit Reasons: 26 wk ob Chief Complaint: 26 Week OB Hand Touch Up Painter Required: No Is patient in pain?: No Allergies No Known Allergies Allergy (Verified 01/12/25 09:47) Medications ???Medication ???Instructions ???Recorded ???Confirmed ???Type multivitamin no.47-iron fum 27 1 cap PO DAILY 08/29/20 01/12/25 History mg-folate no.1 1 mg-dha 300 mg capsule (PNV-DHA) famotidine 40 mg tablet (Pepcid) 40 mg PO BID PRN heartburn #30 tab s 01/12/25 01/12/25 Rx Last Menstrual Period: 07/11/24 Zika: Zika virus screening: Negative : Yes [facility] Medical History Asthma Seasonal allergies Tilted uterus Abnormal Pap smear of cervix Surgical History History of elective History of tonsillectomy Family History Grandfather Diabetes Paternal Type 2 Uncle AA (aortic aneurysm) Brain- Maternal Grandmother AA (aortic aneurysm) Paternal Social History adopted: No household members: spouse and children housing: house number of children: 1 current occupational status: employed and unemployed current occupation: [employer] current occupational exposures/hazards: No pets and animals: Yes (2) pets and animals: dog(s) and fish history of recent travel: No sexually active: Yes Smoking Status: Former smoker how long ago did patient quit smokin years ago second hand exposure: No alcohol intake: current alcohol intake frequency: holidays/special occasions only details: not while substance use type: does not use well-balanced diet: about half the time caffeine: Yes Type: coffee Number of servings: 1 eating out: 1-3 times/week during the past year weight has: increased > 10 lbs what type of physical activity do you participate in: walking frequency: 1-2 times per week duration: 30-45 minutes/day parul/jehovah's witness: None seatbelt use: always do you feel safe at home: Yes additional 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 Date Name GA/Weeks Outcome Route Bth Weight Infant Gen Labor Lgth Anesthesia Del Locatn Provider FOB 04/14/21 Timmy 41 live - full term 8#2oz Male epidural [facility] GP [place] Delivery Date: 04/14/21 Last Updated by: Simi Zarate 2nd degree laceration HPI 26 wk ob Details: DEMETRIUS FERNANDES is a 34 year old who presents for routine OB visit. OB Visit MEET Calculator Estimated Delivery Date Method Current WG Current Estimate 04/17/25 LMP (Certain) 26w 3d Other Estimates 04/14/25 Ultrasound #1 26w 6d Expected Delivery Route/Plan Labor Preferences- CB/BF classes: no labor support person: Brendan labor intervention preferences: [] pain management options preferred: epidural cut cord/dad catch: cord : yes PP control planned: discussed discussed possible routes of delivery and associated risks: [] special requests: [] Specific Issue/Plans Covid status: [] Flu vaccine: [] Tdap vaccine: [] Rhogam: [] LARC form signed: yes Problem list reviewed and updated with the most current plan of care details and appropriate orders placed. Relevant counseling for the gestational age provided. Continue routine care and follow up unless otherwise noted in visit notes/problem list details Initial Weight: 309 lb Date -???-???-???-???-?? ?-???-???-???-???-? ??-???-???- EGA Weight BP Urine Prot -???-???-???-???-?? ?-???-???-???-???-? ??-???-???- Glucose FHR FuHt Pres Dilation -???-???-???-???-?? ?-???-???-???-???-? ??-???-???- Effaced St Visit Note 09/23/24 -???-???-???-???-?? ?-???-???-???-???-? ??-???-???- 10w 4d 309 lb 4 oz (+4 oz) 121/67 -???-???-???-???-?? ?-???-???-???-???-? ??-???-???- 168 -???-???-???-???-?? ?-???-???-???-???-? ??-???-???- KW- CRL cons with dates. accepts NIPT-very concerned about weight with this KW- CRL cons with dates (more content not included)... Normal [facility] Laboratory - Chemistry and C hemistry - challengeOrdered By: Fiordaliza Zhong on 12-16-2024 Glucose Ql (U) Negative [facility] - UrinalysisOrder ed By: Fiordaliza Zhong on 12-16-2024 Protein Ql (U) Negative [facility] Clinical Education Manager Office Visit Reporton 12-16-2024 Clinical Education Manager Office Visit Report [facility] [address], [address] [place] [address] OFFICE VISIT Date of Service: 12/16/24 MR#: [id number] Acct: [id number] Name: DEMETRIUS FERNANDES Rep #: [id number] : 1990 Provider: Dr. Fiordaliza leong MD Age/Sex: 34/F [place] [facility] [place]: Signed Intake Vital Signs 09/23/24 09:08 11/17/24 08:40 12/16/24 09:06 Height 5 ft 9 in 5 ft 9 in 5 ft 9 in Weight: 320 lb BMI 47.2 BP 119/69 Intake Visit Reasons: 22wk ob Allergies No Known Allergies Allergy (Verified 12/16/24 09:05) Medications ???Medication ???Instructions ???Recorded ???Confirmed ???Type multivitamin no.47-iron fum 27 1 cap PO DAILY 08/29/20 12/16/24 History mg-folate no.1 1 mg-dha 300 mg capsule (PNV-DHA) docusate sodium 100 mg capsule 100 mg PO QDAY 09/14/24 12/16/24 H istory (Colace) loratadine 10 mg tablet (Claritin) 10 mg PO QDAY PRN 10/22/2412/16 History Last Menstrual Period: 07/11/24 : No PFSH PFSH Medical History Asthma Seasonal allergies Tilted uterus Abnormal Pap smear of cervix Surgical History History of elective History of tonsillectomy Family History Grandfather Diabetes Paternal Type 2 Uncle AA (aortic aneurysm) Brain- Maternal Grandmother AA (aortic aneurysm) Paternal Social History adopted: No household members: spouse and children housing: house number of children: 1 current occupational status: employed and unemployed current occupation: [employer] current occupational exposures/hazards: No pets and animals: Yes (2) pets and animals: dog(s) and fish history of recent travel: No sexually active: Yes Smoking Status: Former smoker how long ago did patient quit smokin years ago second hand exposure: No alcohol intake: current alcohol intake frequency: holidays/special occasions only details: not while substance use type: does not use well-balanced diet: about half the time caffeine: Yes Type: coffee Number of servings: 1 eating out: 1-3 times/week during the past year weight has: increased > 10 lbs what type of physical activity do you participate in: walking frequency: 1-2 times per week duration: 30-45 minutes/day parul/jehovah's witness: None seatbelt use: always do you feel safe at home: Yes additional social history: - [place] [facility] @ [facility] [employer] [facility] 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 Date Name GA/Weeks Outcome Route Bth Weight Gen Labor Lgth Anesthesia Del Locatn Provider FOB 04/14/21 Timmy 41 live - full term 8#2oz Male epidural [facility] GP [place] Delivery Date: 04/14/21 Last Updated by: Simi Zarate 2nd degree laceration HPI 22wk ob Details: DEMETRIUS FERNANDES is a 34 year old who presents for routine OB visit. OB Visit MEET Calculator Estimated Delivery Date Method Current WG Current Estimate 04/17/25 LMP (Certain) 22w 4d Other Estimates 04/14/25 Ultrasound #1 23w 0d Expected Delivery Route/Plan Labor Preferences- CB/BF classes: [] labor support person: [] labor intervention preferences: [] pain management options preferred: [] cut cord/dad catch: [] : [] PP control planned: [] discussed possible routes of delivery and associated risks: [] special requests: [] Specific Issue/Plans Covid status: [] Flu vaccine: [] Tdap vaccine: [] Rhogam: [] LARC form signed: [] Problem list reviewed and updated with the most current plan of care details and appropriate orders placed. Relevant counseling for the gestational age provided. Continue routine care and follow up unless otherwise noted in visit notes/problem list details Initial Weight: 309 lb Date -???-???-???-???-?? ?-???-???-???-???-? ??-???-???- EGA Weight BP Urine Prot -???-???-???-???-?? ?-???-???-???-???-? ??-???-???- Glucose FHR FuHt Pres Dilation -???-???-???-???-?? ?-???-???-???-???-? ??-???-???- Effaced St Visit Note 09/23/24 -???-???-???-???-?? ?-???-???-???-???-? ??-???-???- 10w 4d 309 lb 4 oz (+4 oz) 121/67 -???-???-???-???-?? ?-???-???-???-???-? ??-???-???- 168 -???-???-???-???-?? ?-???-???-???-???-? ??-???-???- KW- CRL cons with dates. accepts NIPT-very concerned about weight with this KW- CRL cons with dates. accepts N IPT-very concerned about weight with this . (more content not included)... Normal [facility] [id number] 11-23-2024 [facility] Misc. COMMENT Normal . [facility] Comment on above: Order Comment: Speci men Comment: SEE END OF THIS REPORT FOR CORRECTED REPORT COMMENTS [id number] msAFP SERUM RT Result Comment: Test Ordered: [id number] AFP, Serum, Open Spina Bifida Results Comment TG Reference Range: . The MOM and risk factors of this report have been modified based on new information supplied to us by the client or their designated telephone service representative. The Weight was changed from Not provided. to 317. Test Results: Note: TG *Screen Negative* Reference Range: . Gest. Age on Collection Date 18.9 weeks TG Reference Range: . Gestat. Age Based On As provided TG Reference Range: . Recalculations are not recommended when gestational dating by LMP and ultrasound are within 10 days. Maternal Age At MEET 35.6 yr TG Reference Range: . Race TG Reference Range: . Weight 317 lbs TG Reference Range: . Insulin Dep Diabetes No TG Reference Range: . Multiple Gestation No TG Reference Range: . AFP Value 36.2 ng/mL TG Reference Range: . AFP MoM 1.13 TG Reference Range: . OSBR Risk 1 IN 8106 TG Reference Range: . Interpretation Comment TG Reference Range: . Interpretation: Screen Negative This result is screen negative for OSB. The AFP MoM calculated is based on the gestational age provided. MS-AFP can identify up to 80% of open neural tube defects. Closed neural tube defects and some open defects may not be detected by this test. This test does not screen for Down Syndrome or Trisomy 18. If screening for Down Syndrome or Trisomy 18 is desired, contact [facility] to discuss available options. The [employer] recommends amniocentesis be offered to women age 35 and older. This is a corrected report. The previously reported result(s) were: Test Result Date First Reported Updates reported on: 11/23/2024 3:49 PM AFP MOM VALUE 11/22/2024 4:47 PM See interpretation. INTERP 11/22/2024 4:47 PM Interpretation: An interpretation CANNOT be provided for this patient because necessary patient information was not provided (one or more of: gestational age, weight, or patient age). Please call us with new clinical information. OSBR RISK 1 IN 11/22/2024 4:47 PM See interpretation. TEST RESULTS: SCREEN 11/22/2024 4:47 PM See interpretation. Comment: Comment TG Reference Range: . Candice Simmons, Ph.D., [facility] Director References: Available Upon Request. Multiples Of Median Cutoffs For AFP Elevations Worrell 2.5 Black 2.8 IDD 2.0 Twins 4.5 Abbreviation Definitions IDD - Insulin Dep Diabetes OSBR - Open Spina Bifida Risk For further inquiries contact [facility] at [phone]. This test was developed and its performance characteristics determined by [facility]. It has not been cleared or approved by the Food and Drug Administration. Performed at: - [facility] [id number] Contract Assistant: Cara Lanza [facility], Phone: [phone] Performed at: [facility] [id number] Contract Assistant: Jake Ferreira PhD, Phone: [phone] AMENDED REPORT 11/23/24 160[facility] [place] previously reported as: COMMENT Test Ordered: [id number] AFP, Serum, Open Spina Bifida Results Report TG Reference Range: . Test Results: Note: TG See interpretation. Reference Range: . Gest. Age on Collection Date 18.9 weeks TG Reference Range: . Gestat. Age Based On As provided TG Reference Range: . Recalculations are not recommended when gestational dating by LMP and ultrasound are within 10 days. Maternal Age At MEET 35.6 yr TG Reference Range: . Race TG Reference Range: . Weight Comment lbs TG Reference Range: . Not provided. Insulin Dep Diabetes No TG Reference Range: . Multiple Gestation No TG Reference Range: . AFP Value 36.2 ng/mL TG Reference Range: . AFP MoM Note: TG See interpretation. Reference Range: . OSBR Risk 1 IN Note: TG See interpretation. Reference Range: . Interpretation Comment TG Reference Range: . Interpretation: An interpretation CANNOT be provided for this patient because necessary patient information was not provided (one or more of: gestational age, weight, or patient age). Please call us with new clinical information. Comment: Comment TG Reference Range: . Candice Simmons, Ph.D., [facility] Director References: Available Upon Request. Multiples Of Median Cutoffs For AFP Elevations Worrell 2.5 Black 2.8 IDD 2.0 Twins 4.5 Abbreviation Definitions IDD - Insulin Dep Diabetes OSBR - Open Spina Bifida Risk For further inquiries contact [facility] at [phone]. This test was developed and its performance characteristics determined by [facility]. It has not been cleared or approved by the Food and Drug Administration. Performed at: - [facility] [address] [place] [id number] Contract Assistant: Cara Lanza [facility], Phone: [phone] Performed at (more content not included)... Performed By: #### L 3410.9992 #### [facility] [address] [place] [address]. [place], [address] Laboratory - Chemistry and C hemistry - challengeOrdered By: Genie Guy on 11-17-2024 Glucose Ql (U) Negative [facility] - UrinalysisOrder ed By: Genie Guy on 11-17-2024 Protein Ql (U) Negative [facility] Clinical Education Manager Office Visit Reporton 11-17-2024 Clinical Education Manager Office Visit Report [facility] [address], [address] [place] [address] OFFICE VISIT Date of Service: 11/17/24 MR#: [id number] Acct: [id number] Name: DEMETRIUS FERNANDES Alicia Rep #: [id number] : 1990 Provider: MARY JANE godoy Age/Sex: 34/F [place] [facility] [place]: Signed Intake Vital Signs 09/23/24 09:08 10/22/24 10:18 11/17/24 08:40 Height 5 ft 9 in 5 ft 9 in 5 ft 9 in Weight: 317 lb 8 oz BMI 46.8 BP 126/80 H Intake Visit Reasons: 18wk ob Chief Complaint: 18 Week OB Hand Touch Up Painter Required: No Is patient in pain?: No Allergies No Known Allergies Allergy (Verified 11/17/24 08:41) Medications ???Medication ???Instructions ???Recorded ???Confirmed ???Type multivitamin no.47-iron fum 27 1 cap PO DAILY 08/29/20 11/17/24 History mg-folate no.1 1 mg-dha 300 mg capsule (PNV-DHA) docusate sodium 100 mg capsule 100 mg PO QDAY 09/14/24 11/17/24 H istory (Colace) loratadine 10 mg tablet (Claritin) 10 mg PO QDAY PRN 10/22/2411/17 History Last Menstrual Period: 07/11/24 Zika: Zika virus screening: Negative : No PFSH PFSH Medical History Asthma Seasonal allergies Tilted uterus Abnormal Pap smear of cervix Surgical History History of elective History of tonsillectomy Family History Grandfather Diabetes Paternal Type 2 Uncle AA (aortic aneurysm) Brain- Maternal Grandmother AA (aortic aneurysm) Paternal Social History adopted: No household members: spouse and children housing: house number of children: 1 current occupational status: employed and unemployed 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[employer] current occupational exposures/hazards: No pets and animals: Yes (2) pets and animals: dog(s) and fish history of recent travel: No sexually active: Yes Smoking Status: Former smoker how long ago did patient quit smokin years ago second hand exposure: No alcohol intake: current alcohol intake frequency: holidays/special occasions only details: not while substance use type: does not use well-balanced diet: about half the time caffeine: Yes Type: coffee Number of servings: 1 eating out: 1-3 times/week during the past year weight has: increased > 10 lbs what type of physical activity do you participate in: walking frequency: 1-2 times per week duration: 30-45 minutes/day parul/jehovah's witness: None seatbelt use: always do you feel safe at home: Yes additional social history: - Froilan [employer] @ 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 Date Name GA/Weeks Outcome Route Bth Weight Infant Gen Labor Lgth Anesthesia Del Locatn Provider FOB 04/14/21 Timmy 41 live - full term 8#2oz Male epidural [facility] GP Froilan Delivery Date: 04/14/21 Last Updated by: Simi Zarate 2nd degree laceration HPI 18wk ob Details: DEMETRIUS FERNANDES is a 34 year old who presents for routine OB visit. OB Visit MEET Calculator Estimated Delivery Date Method Current WG Current Estimate 04/17/25 LMP (Certain) 18w 3d Other Estimates 04/14/25 Ultrasound #1 18w 6d Expected Delivery Route/Plan Labor Preferences- CB/BF classes: [] labor support person: [] labor intervention preferences: [] pain management options preferred: [] cut cord/dad catch: [] : [] PP control planned: [] discussed possible routes of delivery and associated risks: [] special requests: [] Specific Issue/Plans Covid status: [] Flu vaccine: [] Tdap vaccine: [] Rhogam: [] LARC form signed: [] Problem list reviewed and updated with the most current plan of care details and appropriate orders placed. Relevant counseling for the gestational age provided. Continue routine care and follow up unless otherwise noted in visit notes/problem list details Initial Weight: 309 lb Date -???-???-???-???-?? ?-???-???-???-???-? ??-???-???- EGA Weight BP Urine Prot -???-???-???-???-?? ?-???-???-???-???-? ??-???-???- Glucose FHR FuHt Pres Dilation -???-???-???-???-?? ?-???-???-???-???-? ??-???-???- Effaced St Visit Note 09/23/24 -???-???-???-???-?? ?-???-???-???-???-? ??-???-???- 10w 4d 309 lb 4 oz (+4 oz) 121/67 -???-???-???-???-?? ?-???-???-???-???-? ??-???-???- 168 -???-???-???-???-?? ?-???-???-???-???-? ??-???-???- KW- CRL cons with dates. accepts NIPT-very concerned (more content not included)... Normal [facility] - Chemistry and C hemistry - challengeOrdered By: Aye Mcdowell on 10-22-2024 Glucose Ql (U) Negative [facility] - UrinalysisOrder ed By: Aye Mcdowell on 10-22-2024 Protein Ql (U) Negative [facility] Clinical Education Manager Office Visit Reporton 10-22-2024 Clinical Education Manager Office Visit Report [facility] [address], [address] [place] [address] OFFICE VISIT Date of Service: 10/22/24 MR#: [id number] Acct: [id number] Name: DEMETRIUS FERNANDES Rep #: [id number] : 1990 Provider: Dr. Aye Morel DO Age/Sex: 34/F Location: [facility] Status: Signed Intake Vital Signs 04/13/21 20:08 09/23/24 09:08 10/22/24 10:18 10/22/24 10:18 Height 5 ft 9 in 5 ft 9 in 5 ft 9 in 5 ft 9 in Weight: 312 lb 2 oz BMI 46.0 BP 119/76 Intake Visit Reasons: 14wk OB Hand Touch Up Painter Required: No Is patient in pain?: No Allergies No Known Allergies Allergy (Verified 10/22/24 10:28) Medications ???Medication ???Instructions ???Recorded ???Confirmed ???Type multivitamin no.47-iron fum 27 1 cap PO DAILY 08/29/20 10/22/24 History mg-folate no.1 1 mg-dha 300 mg capsule (PNV-DHA) docusate sodium 100 mg capsule 100 mg PO QDAY 09/14/24 10/22/24 H istory (Colace) loratadine 10 mg tablet (Claritin) 10 mg PO QDAY PRN 10/22/2410/22 History Last Menstrual Period: 07/11/24 Zika: Zika virus screening: Negative : No PFSH PFSH Medical History Asthma Seasonal allergies Tilted uterus Abnormal Pap smear of cervix Surgical History History of elective History of tonsillectomy Family History (Updated 10/22/24 @ 10:17 by Sharon Quintana) Grandfather Diabetes Paternal Type 2 Uncle AA (aortic aneurysm) Brain- Maternal Grandmother AA (aortic aneurysm) Paternal Social History adopted: No household members: spouse and children housing: house number of children: 1 current occupational status: employed and unemployed 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[employer] current occupational exposures/hazards: No pets and animals: Yes (2) pets and animals: dog(s) and fish history of recent travel: No sexually active: Yes Smoking Status: Former smoker how long ago did patient quit smokin years ago second hand exposure: No alcohol intake: current alcohol intake frequency: holidays/special occasions only details: not while substance use type: does not use well-balanced diet: about half the time caffeine: Yes Type: coffee Number of servings: 1 eating out: 1-3 times/week during the past year weight has: increased > 10 lbs what type of physical activity do you participate in: walking frequency: 1-2 times per week duration: 30-45 minutes/day parul/jehovah's witness: None seatbelt use: always do you feel safe at home: Yes additional social history: - [employer]ilan [employer]PLIANCE [employer] @ 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 Date Name GA/Weeks Outcome Route Bth Weight Infant Gen Labor Lgth Anesthesia Del Locatn Provider FOB 04/14/21 Dougherty 41 live - full term 8#2oz Male epidural [facility] GP Froilan Delivery Date: 04/14/21 Last Updated by: Simi Zarate 2nd degree laceration HPI 14wk OB Details: DEMETRIUS FERNANDES is a 34 year old who presents for routine OB visit. OB Visit MEET Calculator Estimated Delivery Date Method Current WG Current Estimate 04/17/25 LMP (Certain) 14w 5d Other Estimates 04/14/25 Ultrasound #1 15w 1d Expected Delivery Route/Plan Labor Preferences- CB/BF classes: [] labor support person: [] labor intervention preferences: [] pain management options preferred: [] cut cord/dad catch: [] : [] PP control planned: [] discussed possible routes of delivery and associated risks: [] special requests: [] Specific Issue/Plans Covid status: [] Flu vaccine: [] Tdap vaccine: [] Rhogam: [] LARC form signed: [] Problem list reviewed and updated with the most current plan of care details and appropriate orders placed. Relevant counseling for the gestational age provided. Continue routine care and follow up unless otherwise noted in visit notes/problem list details Initial Weight: 309 lb Date -???-???-???-???-?? ?-???-???-???-???-? ??-???-???- EGA Weight BP Urine Prot -???-???-???-???-?? ?-???-???-???-???-? ??-???-???- Glucose FHR FuHt Pres Dilation -???-???-???-???-?? ?-???-???-???-???-? ??-???-???- Effaced St Visit Note 09/23/24 -???-???-???-???-?? ?-???-???-???-???-? ??-???-???- 10w 4d 309 lb 4 oz (+4 oz) 121/67 -???-???-???-???-?? ?-???-???-???-???-? ??-???-???- 168 -???-???-???-???-?? ?-???-???-???-???-? ??-???-???- KW- CRL cons with dates. accepts NIPT-very concerned (more content not included)... Normal [facility] Miscellaneous procedureOrder ed By: Aye Mcdowell on 10-04-2024 Miscellaneous Test Comment SEE SCANNED REPORT [facility] NATERAon 10-04-2024 NATURA SEE SCANNED REPORT Normal [facility] Comment on above: Performed By: #### L 900.0098 #### [facility] [address] [place], [address] PAP IG HPV APTIMA 16/18,45on 09-28-2024 ADEQ Comment Normal . [facility] Comment on above: Order Comment: Speci men Comment: [id number] Specimen Comment: Source.............Cervix;Endocervix Specimen Comment: LMP / Prev Treat...[id number] Specimen Comment: Other.............. Specimen Comment: No. of containers..01 ThinPrep Vial Result Comment: Sati sfactory for evaluation. No endocervical component is identified. An endocervical component is not commonly seen in the patient. Performed By: #### L 7400.0280, M100.2200, L7000.1800 #### [facility] [address] [place], [place], [address] COMM . Normal . [facility] Comment on above: Order Comment: Speci men Comment: [id number] Specimen Comment: Source.............Cervix;Endocervix Specimen Comment: LMP / Prev Treat...[id number] Specimen Comment: Other.............. Specimen Comment: No. of containers..01 ThinPrep Vial Performed By: #### L 7400.0280, M100.2200, L7000.1800 #### [facility] [address] [place], [place], [id number] COMMENT Comment Normal . [facility] Comment on above: Order Comment: Speci men Comment: [id number] Specimen Comment: Source.............Cervix;Endocervix Specimen Comment: LMP / Prev Treat...[id number] Specimen Comment: Other.............. Specimen Comment: No. of containers..01 ThinPrep Vial Result Comment: This liquid based ThinPrep(R) pap test was screened with the use of an image guided system. Performed By: #### L 7400.0280, M100.2200, L7000.1800 #### [facility] [address] [place], [place], [id number] DIAG Comment Normal . [facility] Comment on above: Order Comment: Speci men Comment: [id number] Specimen Comment: Source.............Cervix;Endocervix Specimen Comment: LMP / Prev Treat...[id number] Specimen Comment: Other.............. Specimen Comment: No. of containers..01 ThinPrep Vial Result Comment: NEGA TIVE FOR INTRAEPITHELIAL LESION OR MALIGNANCY. Performed By: #### L 7400.0280, M100.2200, L7000.1800 #### [facility] [address] [place], [place], [id number] HPV APTIMA, HR Negative Normal Negative [facility] Comment on above: Order Comment: Speci men Comment: [id number] Specimen Comment: Source.............Cervix;Endocervix Specimen Comment: LMP / Prev Treat...[id number]=[id number] Specimen Comment: Other.............. Specimen Comment: No. of containers..01 ThinPrep Vial Result Comment: This nucleic acid amplification test detects fourteen high- risk HPV types (16,18,31,33,35,39,45,51,52,56,58,59,66,68) without differentiation. Performed By: #### L 7400.0280, M100.2200, L7000.1800 #### [facility] [address] [place], [place], [address] HPV Sarah Rfx Comment Normal . [facility] Comment on above: Order Comment: Speci men Comment: [id number] Specimen Comment: Source.............Cervix;Endocervix Specimen Comment: LMP / Prev Treat...[id number] Specimen Comment: Other.............. Specimen Comment: No. of containers..01 ThinPrep Vial Result Comment: Crit eria not met, HPV Genotype not performed. Performed at: - [facility] [id number] Contract Assistant: Silvia Irwin MD, Phone: [phone] Performed at: = - [facility] [id number] Contract Assistant: Silvia Irwin MD, Phone: [phone] Performed By: #### L 7400.0280, M100.2200, L7000.1800 #### [facility] [address] [place], [place], [address] PAPSMR Comment Normal . [facility] Comment on above: Order Comment: Speci men Comment: [id number] Specimen Comment: Source.............Cervix;Endocervix Specimen Comment: LMP / Prev Treat...[id number] Specimen Comment: Other.............. Specimen Comment: No. of containers..01 ThinPrep Vial Result Comment: The Pap smear is a screening test designed to aid in the detection of premalignant and malignant conditions of the uterine cervix. It is not a diagnostic procedure and should not be used as the sole means of detecting cervical cancer. Both false-positive and false-negative reports do occur. Performed By: #### L 7400.0280, M100.2200, L7000.1800 #### [facility] [address] [place], [place], [id number] PERFORM Comment Normal . [facility] Comment on above: Order Comment: Speci men Comment: [id number] Specimen Comment: Source.............Cervix;Endocervix Specimen Comment: LMP / Prev Treat...[id number] Specimen Comment: Other.............. Specimen Comment: No. of containers..01 ThinPrep Vial Result Comment: Tammy Horan, Solar Energy System Installer Helper (ASCP) Performed By: #### L 7400.0280, M100.2200, L7000.1800 #### [facility] [address] [place], [address] Chlamydia/GC ARIAN aptimaon CHLAMY,NUC ACID Negative Normal Negative [facility] Comment on above: Performed By: #### L 7400.0280, M100.2200, L7000.1800 #### [facility] [address] [place], [place], [address] GC BY NUC ACID Negative Normal Negative [facility] Comment on above: Result Comment: Perf ormed at: =G - [facility] [address] [place] [id number] Contract Assistant: Silvia Irwin MD, Phone: [phone] Performed By: #### L 7400.0280, M100.2200, L7000.1800 #### [facility] [address] [place], [address] Urine Cultureon 09-24-2024 [facility] Culture exhibits no growth. Normal [facility] Comment on above: Performed By: #### L 7400.0280, M100.2200, L7000.1800 #### [facility] [address] [place], [address] Absolute lymphocyte countOrd ered By: Bing Rich on 09-23-2024 Lymphocytes Auto (Unsp spec) [#/Vol] 2.53 10*3/uL 0.83-4.51 [facility] Absolute neutrophil countOrd ered By: Bing Rich on 09-23-2024 Neutrophils (Bld) [#/Vol] 8.7 10*3/uL High 2.0-7.7 [facility] Automated lymphocyte count a s percentage of total leukocytesOrdered By: Bing Rich on 09-23-2024 Lymphocytes/100 WBC Auto (Unsp spec) 20.5 % 19-41 [facility] Basophil percentageOrdered B y: Bing Rich on 09-23-2024 Basophils/100 WBC (Bld) 0.5 % 0-1 [facility] C. trachomatis rRNA ARIAN+prob e Ql (Unsp spec)Ordered By: Bing Rich on 09-23-2024 Chlamydia DNA (ARIAN) Negative Negative [facility] CBC W/Diff, Automatedon 09-11 Absolute Lymph 2.53 X10 3/uL Normal 0.83-4.51 [facility] Comment on above: Performed By: #### L 3890.6006, L3890.6301, L509.4006, L3890.6102, L100.0100, L509.8002, L501.9985, L900.0098, BTS ####[facility] [address] [place], [address] Absolute Neut 8.7 X10 3/uL High 2.0-7.7 [facility] Comment on above: Performed By: #### L 3890.6006, L3890.6301, L509.4006, L3890.6102, L100.0100, L509.8002, L501.9985, L900.0098, BTS ####[facility] [address] [place], [place], [phone]) Basophils/100 WBC (Bld) 0.5 % Normal 0-1 [facility] Comment on above: Performed By: #### L 3890.6006, L3890.6301, L509.4006, L3890.6102, L100.0100, L509.8002, L501.9985, L900.0098, BTS ####[facility] [address] [place], [place], [phone]) Eosinophils/100 WBC (Bld) 1.2 % Normal 0-5 [facility] Comment on above: Performed By: #### L 3890.6006, L3890.6301, L509.4006, L3890.6102, L100.0100, L509.8002, L501.9985, L900.0098, BTS ####[facility] [address] [place], [place], [phone]) Erythrocyte distribution width (RBC) [Ratio] 14.0 % Normal 11.6-14.6 [facility] Comment on above: Performed By: #### L 3890.6006, L3890.6301, L509.4006, L3890.6102, L100.0100, L509.8002, L501.9985, L900.0098, BTS ####[facility] [address] [place], [address] Hematocrit (Bld) [Volume fraction] 36.9 % Low 37-47 [facility] Comment on above: Performed By: #### L 3890.6006, L3890.6301, L509.4006, L3890.6102, L100.0100, L509.8002, L501.9985, L900.0098, BTS ####[facility] [address] [place], [address] Hemoglobin (Bld) [Mass/Vol] 12.0 g/dL Normal 12.0-15.0 [facility] Comment on above: Performed By: #### L 3890.6006, L3890.6301, L509.4006, L3890.6102, L100.0100, L509.8002, L501.9985, L900.0098, BTS ####[facility] [address] [place], [address] IG% 0.300 Normal 0.0-0.9 [facility] Comment on above: Result Comment: IG% - Immature Granulocytes (promyelocytes, myelocytes and metamyelocytes) > 1% indicates that a LEFT SHIFT is Present. Performed By: #### L 3890.6006, L3890.6301, L509.4006, L3890.6102, L100.0100, L509.8002, L501.9985, L900.0098, BTS ####[facility] [address] [place], [address] Lymphocytes/100 WBC (Bld) 20.5 % Normal 19-41 [facility] Comment on above: Performed By: #### L 3890.6006, L3890.6301, L509.4006, L3890.6102, L100.0100, L509.8002, L501.9985, L900.0098, BTS ####[facility] [address] [place], [address] MCH (RBC) [Entitic mass] 27.3 pg Normal 27.0-32.0 [facility] Comment on above: Performed By: #### L 3890.6006, L3890.6301, L509.4006, L3890.6102, L100.0100, L509.8002, L501.9985, L900.0098, BTS ####[facility] [address] [place], [address] MCHC (RBC) [Mass/Vol] 32.5 g/dL Normal 32-36 [facility] Comment on above: Performed By: #### L 3890.6006, L3890.6301, L509.4006, L3890.6102, L100.0100, L509.8002, L501.9985, L900.0098, BTS ####[facility] [address] [place], [address] MCV (RBC) [Entitic vol] 83.9 fL Normal 81-99 [facility] Comment on above: Performed By: #### L 3890.6006, L3890.6301, L509.4006, L3890.6102, L100.0100, L509.8002, L501.9985, L900.0098, BTS ####[facility] [address] [facility] [place], [address] Monocytes/100 WBC (Bld) 7.0 % Normal 0-10 [facility] Comment on above: Performed By: #### L 3890.6006, L3890.6301, L509.4006, L3890.6102, L100.0100, L509.8002, L501.9985, L900.0098, BTS ####[facility] [address] [place], [address] Neutrophils/100 WBC (Bld) 70.5 % High 47-70 [facility] Comment on above: Performed By: #### L 3890.6006, L3890.6301, L509.4006, L3890.6102, L100.0100, L509.8002, L501.9985, L900.0098, BTS ####[facility] [address] [place], [address] Nucleated RBC (Bld) [#/Vol] 0 10*3/uL Normal 0-5 [facility] Comment on above: Performed By: #### L 3890.6006, L3890.6301, L509.4006, L3890.6102, L100.0100, L509.8002, L501.9985, L900.0098, BTS ####[facility] [address] [place], [address]( Platelet mean volume (Bld) [Entitic vol] 10.7 fL Normal 6.2-12.0 [facility] Comment on above: Performed By: #### L 3890.6006, L3890.6301, L509.4006, L3890.6102, L100.0100, L509.8002, L501.9985, L900.0098, BTS ####[facility] [address] [place], [address]( Platelets (Bld) [#/Vol] 294 10*3/uL Normal 150-450 [facility] Comment on above: Performed By: #### L 3890.6006, L3890.6301, L509.4006, L3890.6102, L100.0100, L509.8002, L501.9985, L900.0098, BTS ####[facility] [address] [place], [address] RBC (Bld) [#/Vol] 4.40 10*6/uL Normal 4.2-5.4 [facility] Comment on above: Performed By: #### L 3890.6006, L3890.6301, L509.4006, L3890.6102, L100.0100, L509.8002, L501.9985, L900.0098, BTS ####[facility] [address] [place], [address] RDW SD 43.3 fl Normal 35.1-43.9 [facility] Comment on above: Performed By: #### L 3890.6006, L3890.6301, L509.4006, L3890.6102, L100.0100, L509.8002, L501.9985, L900.0098, BTS ####[facility] [address] [place], [address] WBC (Bld) [#/Vol] 12.3 10*3/uL High 4.4-11.0 [facility] Comment on above: Performed By: #### L 3890.6006, L3890.6301, L509.4006, L3890.6102, L100.0100, L509.8002, L501.9985, L900.0098, BTS ####[facility] [address] [place], [place], [id number] Cervical or vaginal specimen microscopic examination by liquid based cytology (reportOrdered By: Bing Rich on 09-23-2024 Cytology report Cyto stain.thin prep Doc (Cvx/Vag) Comment . [facility] Comment on above: Criteria not met, HP V Genotype not performed.Performed at: - [facility] [id number] Director: Silvia Irwin MD, Phone: [phone] at: = - [facility] [id number] Director: Silvia Irwin MD, Phone: [phone] Cervical or vagninal specime n microscopic examination by cytology stain (reported asOrdered By: Bing Rich on 09-23-2024 Cytology report Cyto stain Doc (Cvx/Vag) Comment . [facility] Comment on above: The Pap smear is a s creening test designed to aid in thedetection of premalignant and malignant conditions of theuterine cervix. It is not a diagnostic procedure andshould not be used as the sole means of detecting cervicalcancer. Both false-positive and false-negative reports dooccur. Chlamydia trachomatis rRNA d etection by probe and target amplification methodOrdered By: Bing Rich on 09-23-2024 C. trachomatis rRNA ARIAN+probe Ql (Unsp spec) Negative Negative [facility] W[employer] Server Cyto stain Nom (C vx/Vag) [ID]Ordered By: Bing Rich on 09-23-2024 Pap Smear Performed By Comment . [facility] Comment on above: Jorge A Art totechnologist (ASCP) Cytology report Cyto stain D oc (Cvx/Vag)Ordered By: Bing Rich on 09-23-2024 Thin Prep Pap Smear Comment . [facility] Comment on above: The Pap smear is a s creening test designed to aid in thedetection of premalignant and malignant conditions of theuterine cervix. It is not a diagnostic procedure andshould not be used as the sole means of detecting cervicalcancer. Both false-positive and false-negative reports dooccur. Cytology report Cyto stain.t hin prep Doc (Cvx/Vag)Ordered By: Bing Rich on 09-23-2024 HPV Genotype Special Info Comment . [facility] Comment on above: Criteria not met, HP V Genotype not performed.Performed at: - [facility] [id number] Director: Silvia Irwin MD, Phone: [phone] at: = - [facility] [id number] Director: Silvia Irwin MD, Phone: [phone] Detection in cervical specim en of any of human papilloma virus (HPV) 16, 18, 31, 33,Ordered By: Bing Rich on 09-23-2024 HPV 16+18+31+33+35+39+45+51+5 2+56+58+59+66+68 DNA Probe+sig amp Ql (Cvx) Negative Negative [facility] Comment on above: This nucleic acid am plification test detects fourteen high-risk HPV types (16,18,31,33,35,39,45,51,52,56,58,59,66,68)without differentiation. Eosinophil percentageOrdered By: Bing Rich on 09-23-2024 Eosinophils/100 WBC (Bld) 1.2 % 0-5 [facility] Erythrocyte distribution wid th ratioOrdered By: Bing Rich on 09-23-2024 Erythrocyte distribution width (RBC) [Ratio] 14.0 % 11.6-14.6 [facility] Erythrocyte distribution wid th standard deviationOrdered By: Bing Rich on 09-23-2024 Erythrocyte distribution width (RBC) [Entitic vol] 43.3 fL 35.1-43.9 [facility] Erythrocyte distribution width (RBC) [Ratio] 43.3 fl 35.1-43.9 [facility] HBV surface Ag Ql (S)Ordered By: Bing Rich on 09-23-2024 Hepatitis B Surface Antigen Non-Reactive Nonreactive [facility] Comment on above: Reactive: Presumptiv e evidence of HBV. Repeatedly reactive samples must be confirmed using a neutralization test (Diassesss HBsAg Confirmatory Test)Non-Reactive: HBsAg not detected; does not exclude the possibility of exposure to HBV HPV 16+18+31+33+35+39+45+51+ 52+56+58+59+66+68 DNA Probe+sig amp Ql (Cvx)Ordered By: Bing Rich on 09-23-2024 Human Papillomavirus High Risk Negative Negative [facility] Comment on above: This nucleic acid am plification test detects fourteen high-risk HPV types (16,18,31,33,35,39,45,51,52,56,58,59,66,68)without differentiation. Hematocrit Auto (Bld) [Volum e fraction]Ordered By: Bing Rich on 09-23-2024 Hematocrit (Bld) [Volume fraction] 36.9 % Low 37-47 [facility] Hemoglobin A1con 09-23-2024 HbA1c (Bld) [Mass fraction] 5.6 % Low <=5.6 [facility] Comment on above: Performed By: #### L 3890.6006, L3890.6301, L509.4006, L3890.6102, L100.0100, L509.8002, L501.9985, L900.0098, BTS ####[facility] [address] [place], [address] Hemoglobin A1c percentageOrd ered By: Bing Rich on 09-23-2024 HbA1c (Bld) [Mass fraction] 5.6 % Low >5.7 [facility] Hemoglobin measurementOrdere d By: Bing Rich on 09-23-2024 Hemoglobin (Bld) [Mass/Vol] 12.0 g/dL 12.0-15.0 [facility] Hepatitis C antibodyOrdered By: Bing Rich on 09-23-2024 Hepatitis C Antibody Non-Reactive Nonreactive [facility] Comment on above: Reactive: Presumptiv e evidence of antibodies to HCV. Follow CDC recommendations for supplemental testing.Non-Reactive: Antibodies to HCV were not detected; does not exclude the possibility of exposure to HCVReactive Results are presumptive evidence of antibodies to HCV. Follow CDC recommendations for supplemental testing.Order confirmation testing: HCV Quant by PCR testing - HCVPCR #[id number] Non Reactive: < 0.8 Equivocal: >/= 0.8 to < 1.0 Reactive: >/= 1.0The CDC requires that a reactive/equivocal HCV antibody result be sent out for confirmation. HCV Quant by PCR testing. Image-guided ThinPrep PapOrd ered By: Bing Rich on 09-23-2024 Pap Smear Note Comment . [facility] Comment on above: This liquid based Th inPrep(R) pap test was screened withthe use of an image guided system. Image-guided liquid-based Pa pOrdered By: Bing Rich on 09-23-2024 Pap Smear Diagnosis Comment . [facility] Comment on above: NEGATIVE FOR INTRAEP ITHELIAL LESION OR MALIGNANCY. Immature granulocytes/100 WB C Auto (Bld)Ordered By: Bing Rich on 09-23-2024 Immature granulocytes/100 WBC (Bld) 0.300 % 0.0-0.9 [facility] Comment on above: IG% - Immature Granu locytes (promyelocytes, myelocytes and metamyelocytes) > 1% indicates that a LEFT SHIFT is Present. L3890.6006on 09-23-2024 HIV Non-Reactive Normal Nonreactive [facility] Comment on above: Result Comment: Non- Reactive Reactive Repeatedly reactive samples must be confirmed according to CDC recommended confirmatory algorithms. The subresults for either HIVAG or AHIV can be used as an aid in the selection of the confirmation algorithm for reactive samples. Send out specimens with Reactive results to [facility] for confirmation. Order the HIV antibody detection and differentiation: lc#[id number] Performed By: #### L 3890.6006, L3890.6301, L509.4006, L3890.6102, L100.0100, L509.8002, L501.9985, L900.0098, BTS ####[facility] [address] [place], [address] L3890.6102on 09-23-2024 HEP B Surf Ag Non-Reactive Normal Nonreactive [facility] Comment on above: Result Comment: Reac tive: Presumptive evidence of HBV. Repeatedly reactive samples must be confirmed using a neutralization test ([employer]s HBsAg Confirmatory Test) Non-Reactive: HBsAg not detected; does not exclude the possibility of exposure to HBV Performed By: #### L 3890.6006, L3890.6301, L509.4006, L3890.6102, L100.0100, L509.8002, L501.9985, L900.0098, BTS ####[facility] [address] [place], [place], [address] L3890.6301on 09-23-2024 Hepatitis C Ab Non-Reactive Normal Nonreactive [facility] Comment on above: Result Comment: Reac tive: Presumptive evidence of antibodies to HCV. Follow CDC recommendations for supplemental testing. Non-Reactive: Antibodies to HCV were not detected; does not exclude the possibility of exposure to HCV Reactive Results are presumptive evidence of antibodies to HCV. Follow CDC recommendations for supplemental testing. Order confirmation testing: HCV Quant by PCR testing - HCVPCR lc#[id number] Non Reactive: < 0.8 Equivocal: >/= 0.8 to < 1.0 Reactive: >/= 1.0 The CDC requires that a reactive/equivocal HCV antibody result be sent out for confirmation. HCV Quant by PCR testing. Performed By: #### L 3890.6006, L3890.6301, L509.4006, L3890.6102, L100.0100, L509.8002, L501.9985, L900.0098, BTS ####[facility] [address] [place], [address] L509.4006on 09-23-2024 Rubella IgG REAC Normal Nonreactive [facility] Comment on above: Result Comment: Anti body Result: Interpretation Non-Reactive: Non-Immune Reactive: Immune The following results were obtained with the [employer] Rubella IgG assay. Results from assays of other manufacturers cannot be used interchangeably. Performed By: #### L 3890.6006, L3890.6301, L509.4006, L3890.6102, L100.0100, L509.8002, L501.9985, L900.0098, BTS ####[facility] [address] [place], [address] L509.8002on 09-23-2024 Syphilis Abs Non-Reactive Normal Nonreactive [facility] Comment on above: Performed By: #### L 3890.6006, L3890.6301, L509.4006, L3890.6102, L100.0100, L509.8002, L501.9985, L900.0098, BTS ####[facility] [address] [place], [place], [id number] Laboratory - CytologyOrdered By: Bing Rich on 09-23-2024 Warrant Server Cyto stain Nom (Cvx/Vag) [ID] Comment . [facility] Comment on above: Jorge A Art totechnologist (ASCP) Laboratory - Microbiology an d Antimicrobial susceptibilityOrdered By: Bing Rich on 09-23-2024 HBV surface Ag Ql (S) Non-Reactive Nonreactive [facility] Comment on above: Reactive: Presumptiv e evidence of HBV. Repeatedly reactive samples must be confirmed using a neutralization test ([employer] HBsAg Confirmatory Test)Non-Reactive: HBsAg not detected; does not exclude the possibility of exposure to HBV Laboratory - Miscellaneous t estsOrdered By: Bing Rich on 09-23-2024 Service comment (Unsp spec) [Interp] . . [facility] Lymphocytes Auto (Unsp spec) [#/Vol]Ordered By: Bing Rich on 09-23-2024 Lymphocytes (Bld) [#/Vol] 2.53 10*3/uL 0.83-4.5 1 [facility] Lymphocytes/100 WBC Auto (Un sp spec)Ordered By: Bing Rich on 09-23-2024 Lymphocytes/100 WBC (Bld) 20.5 % 19-41 [facility] MCV (mean corpuscular volume ) determinationOrdered By: Bing Rich on 09-23-2024 MCV (RBC) [Entitic vol] 83.9 fL 81-99 [facility] Mean corpuscular hemoglobin (MCH) determinationOrdered By: Bing Rich on 09-23-2024 MCH (RBC) [Entitic mass] 27.3 pg 27.0-32.0 [facility] Mean corpuscular hemoglobin concentration (MCHC) determinationOrdered By: Bing Rich on 09-23-2024 MCHC (RBC) [Mass/Vol] 32.5 g/dL 32-36 [facility] Mean platelet volume determi nationOrdered By: Bing Rich on 09-23-2024 Platelet mean volume (Bld) [Entitic vol] 10.7 fL 6.2-12.0 [facility] Miscellaneous procedureOrder ed By: Bing Rich on 09-23-2024 Miscellaneous Test Comment SEE SCANNED REPORT [facility] Monocyte percentageOrdered B y: Bing Rich on 09-23-2024 Monocytes/100 WBC (Bld) 7.0 % 0-10 [facility] NATERAon 09-23-2024 NATURA SEE SCANNED REPORT Normal [facility] Comment on above: Order Comment: Comme nts: NIPT with Gender Performed By: #### L 3890.6006, L3890.6301, L509.4006, L3890.6102, L100.0100, L509.8002, L501.9985, L900.0098, BTS ####[facility] [address] [place], [place], [id number] Neisseria gonorrhoeae nuclei c acid detection by amplified probe techniqueOrdered By: Bing Rich on 09-23-2024 N. gonorrhoeae DNA ARIAN+probe Ql (Unsp spec) Negative Negative [facility] Comment on above: Performed at: =[address] [id number] Director: Silvia Irwin MD, Phone: [phone] Neutrophil percentageOrdered By: Bing Rich on 09-23-2024 Neutrophils/100 WBC (Bld) 70.5 % High 47-70 [facility] No Panel InformationOrdered By: Bing Rich on 09-23-2024 Pap Smear Specimen Adequacy Comment . [facility] Comment on above: Satisfactory for rosa luation. No endocervical component is identified.An endocervical component is not commonly seen in the patient. HIV (1&2) Antibody Non-Reactive Nonreactive [facility] Comment on above: Non-ReactiveReactive Repeatedly reactive samples must be confirmed according to CDC recommended confirmatory algorithms. The subresults for either HIVAG or AHIV can be used as an aid in the selection of the confirmation algorithm for reactive samples.Send out specimens with Reactive results to [facility] for confirmation.Order the HIV antibody detection and differentiation: #[id number] Nucleated red blood cell per centageOrdered By: Bing Rich on 09-23-2024 Nucleated RBC/100 WBC (Bld) [Ratio] 0 % 0-5 [facility] Clinical Education Manager Office Visit Reporton 09-23-2024 Clinical Education Manager Office Visit Report [facility] [address], [address] [place] [address] OFFICE VISIT Date of Service: 09/23/24 MR#: [id number] Acct: [id number] Name: DEMETRIUS FERNANDES Rep #: [id number] : 1990 Provider: ZACHARY Way ams Age/Sex: 34/F [place] [facility] [place]: Signed Intake Vital Signs 04/13/21 20:08 09/23/24 09:05 09/23/24 09:08 Height 5 ft 9 in 5 ft 9 in 5 ft 9 in Weight: 309 lb 4 oz BMI 45.6 BP 121/67 H Intake Visit Reasons: 10 WK NOB Chief Complaint: 10wk NOB Is patient in pain?: No Allergies No Known Allergies Allergy (Verified 09/23/24 09:05) Medications ???Medication ???Instructions ???Recorded ???Confirmed ???Type multivitamin no.47-iron fum 27 1 cap PO DAILY 08/29/20 09/23/24 History mg-folate no.1 1 mg-dha 300 mg capsule (PNV-DHA) docusate sodium 100 mg capsule 100 mg PO QDAY 09/14/24 09/23/24 H istory (Colace) Last Menstrual Period: 07/11/24 : Yes PFSH PFSH Medical History Asthma Seasonal allergies Tilted uterus Abnormal Pap smear of cervix Surgical History History of elective History of tonsillectomy Family History Grandfather Diabetes Paternal Type 2 Uncle AA (aortic aneurysm) Brain- Maternal Grandmother AA (aortic aneurysm) Paternal Social History adopted: No household members: spouse and children housing: house number of children: 1 service: No current occupational status: employed and unemployed current occupation: [employer] current occupational exposures/hazards: No pets and animals: Yes (2) pets and animals: dog(s) and fish history of recent travel: No sexually active: Yes Smoking Status: Former smoker how long ago did patient quit smokin years ago second hand exposure: No alcohol intake: current alcohol intake frequency: holidays/special occasions only details: not while substance use type: does not use well-balanced diet: about half the time caffeine: Yes Type: coffee Number of servings: 1 eating out: 1-3 times/week during the past year weight has: increased > 10 lbs what type of physical activity do you participate in: walking frequency: 1-2 times per week duration: 30-45 minutes/day parul/jehovah's witness: None seatbelt use: always do you feel safe at home: Yes additional 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 Date Name GA/Weeks Outcome Route Bth Weight Gen Labor Lgth Anesthesia Del Jeremiahatn Provider FOB 04/14/21 Timmy 41 live - full term 8#2oz Male epidural [facility] GP Froilan Delivery Date: 04/14/21 Last Updated by: Simi Zarate 2nd degree laceration HPI 10 WK NOB Details: DEMETRIUS FERNANDES is a 34 year old who presents for New OB visit. OB Visit MEET Calculator Estimated Delivery Date Method Current WG Current Estimate 04/17/25 LMP (Certain) 10w 4d Other Estimates 04/14/25 Ultrasound #1 11w 0d Comments: HIV: Urine Culture: Sequential Screen: NIPT Screen: Estimated Due Date: 04/17/25 Expected Delivery Route/Plan Labor Preferences- CB/BF classes: [] labor support person: [] labor intervention preferences: [] pain management options preferred: [] cut cord/dad catch: [] : [] PP control planned: [] discussed possible routes of delivery and associated risks: [] special requests: [] Specific Issue/Plans Covid status: [] Flu vaccine: [] Tdap vaccine: [] Rhogam: [] LARC form signed: [] Problem list reviewed and updated with the most current plan of care details and appropriate orders placed. Relevant counseling for the gestational age provided. Continue routine care and follow up unless otherwise noted in visit notes/problem list details Initial Weight: 309 lb Date -???-???-???-???-?? ?-???-???-???-???-? ??-???-???- EGA Weight BP Urine Prot -???-???-???-???-?? ?-???-???-???-???-? ??-???-???- Glucose FHR FuHt Pres Dilation -???-???-???-???-?? ?-???-???-???-???-? ??-???-???- Effaced St Visit Note 09/23/24 -???-???-???-???-?? ?-???-???-???-???-? ??-???-???- 10w 4d 309 lb 4 oz (+4 oz) 121/67 -???-???-???-???-?? ?-???-???-???-???-? ??-???-???- 168 -???-???-???-???-?? ?-???-???-???-???-? ??-???-???- KW- CRL cons with dates. accepts NIPT-very concerned about weight with this KW- CRL cons with dates. accepts (more content not included)... Normal [facility] Platelet countOrdered By: Akbar Rich on 09-23-2024 Platelets (Bld) [#/Vol] 294 10*3/uL 150-450 [facility] RBC Auto (Bld) [#/Vol]Ordere d By: Bing Rich on 09-23-2024 RBC (Bld) [#/Vol] 4.40 10*6/uL 4.2-5.4 [facility] Rubella immune status determ ination by IgG antibody assayOrdered By: Bing Rich on 09-23-2024 Rubella IgG Antibody REAC Nonreactive [facility] Comment on above: Antibody Result: Int erpretationNon-Reactive: Non-ImmuneReactive: ImmuneThe following results were obtained with the [employer] Rubella IgG assay. Results from assays of other manufacturers cannot be used interchangeably. Service comment (Unsp spec) [Interp]Ordered By: Bing Rich on 09-23-2024 Pap Smear Comment (3) . . [facility] T. pallidum abOrdered By: Akbar Rich on 09-23-2024 Syphilis Total Antibody Non-Reactive Nonreactiv e [facility] Type AND Screenon 09-23-2024 ABO and Rh group Nom (Bld) Blood group O Rh(D) negative Normal [facility] Comment on above: Order Comment: PN Performed By: #### L 3890.6006, L3890.6301, L509.4006, L3890.6102, L100.0100, L509.8002, L501.9985, L900.0098, BTS ####[facility] [address] [place], [address] Urine cultureOrdered By: Luan Rich on 09-23-2024 Bacteria identified Cx Nom (U) Culture exhibits no growth. [facility] White blood cell (WBC) count Ordered By: Bing Rich on 09-23-2024 WBC (Bld) [#/Vol] 12.3 10*3/uL High 4.4-11.0 [facility] Serum Varicella zoster virus IgG antibody assay by immunoassay (units/volume)Ordered By: Cristina Barros on 03-06-2023 VZV IgG IA Qn (S) 3665 index Immune >165 [facility] Comment on above: Negative <135 Equivo eben 135 - 165 Positive >165A positive result generally indicates exposure to thepathogen or administration of specific immunoglobulins,but it is not indication of active infection or stageof disease.Performed at: [facility] [id number] [place], [place] [id number] Director: Jake Ferreira PhD, Phone: [phone] No Panel Informationon 02-19 Rubella IgG Antibody Reactive Nonreactive [facility] Work Phone: Comment on above: Antibody Results Int erpretation of Immune Status Non Reactive Presumed Non-Immune Equivocal Equivocal Reactive Presumed Immune Serum measles virus IgG anti body assay by immunoassay (units/volume)on 02-19-2022 MeV IgG IA Qn (S) 150.0 AU/mL Immune >16.4 [facility] Work Phone: Comment on above: Negative <13.5 Equiv ocal 13.5 - 16.4 Positive >16.4Presence of antibodies to Rubeola is presumptive evidenceof immunity except when acute infection is suspected.Performed at: [facility] [address] [id number] Director: Jake Ferreira PhD, Phone: [phone] Serum mumps virus IgG antibo dy assay (units/volume)on 02-19-2022 MuV IgG Qn (S) 16.6 AU/mL Immune >10.9 [facility] Work Phone: Comment on above: Negative <9.0 Equivo eben 9.0 - 10.9 Positive >10.9A positive result generally indicates past exposure toMumps virus or previous vaccination. Vital Signs Date Time Vital Sign Value Performing Clinician Juancarlosi iris 01-24-2025 08:40-0400 Body height 175.[address] Aye Dey DO Work Phone: [facility] 01-24-2025 08:30-0400 Body mass index (BMI) [Ratio] 48.9 kg/m2 Dr. Aye Dey DO Work Phone: [facility] 01-24-2025 08:30-0400 Body weight 150.[address] Aye Dey DO Work Phone: [facility] 01-24-2025 08:30-0400 Diastolic blood pressure 72 mm[Hg] Dr. Aye Dey DO Work Phone: [facility] 01-24-2025 08:30-0400 Systolic blood pressure 124 mm[Hg] Dr. Aye Dey DO Work Phone: [facility] 01-12-2025 09:43-0400 Body height 175.26 cm Bing Rich CNM Work Phone: [facility] 01-12-2025 09:43-0400 Body mass index (BMI) [Ratio] 48.4 kg/m2 Bing LUIM Work Phone: [facility] 01-12-2025 09:43-0400 Body weight 149 kg Bing LUIM Work Phone: [facility] 01-12-2025 09:43-0400 Diastolic blood pressure 82 mm[Hg] Bing LUIM Work Phone: [facility] 01-12-2025 09:43-0400 Systolic blood pressure 130 mm[Hg] Bing LUIM Work Phone: [facility] 12-16-2024 09:30-0400 Body height 175.26 cm Bing Rich CNM Work Phone: [facility] 12-16-2024 09:06-0400 Body mass index (BMI) [Ratio] 47.2 kg/m2 Bing Rich CNM Work Phone: [facility] 12-16-2024 09:06-0400 Body weight 145.14 kg Bing Rich CNM Work Phone: [facility] 12-16-2024 09:06-0400 Diastolic blood pressure 69 mm[Hg] Bing Rich CNM Work Phone: [facility] 12-16-2024 09:06-0400 Systolic blood pressure 119 mm[Hg] Bing Rich CNM Work Phone: [facility] 11-17-2024 08:40-0400 Body height 175.26 cm Bing Rich CNM Work Phone: [facility] 11-17-2024 08:40-0400 Body mass index (BMI) [Ratio] 46.8 kg/m2 Bing Rich CNM Work Phone: [facility] 11-17-2024 08:40-0400 Body weight 144.01 kg Bing Rich CNM Work Phone: [facility] 11-17-2024 08:40-0400 Diastolic blood pressure 80 mm[Hg] Bing Rich CNM Work Phone: [facility] 11-17-2024 08:40-0400 Systolic blood pressure 126 mm[Hg] Bing Rich CNM Work Phone: [facility] 10-22-2024 10:18-0400 Body mass index (BMI) [Ratio] 46 kg/m2 Bing Rich CNM Work Phone: [facility] 10-22-2024 10:18-0400 Body weight 141.57 kg Bing iRch CNM Work Phone: [facility] 10-22-2024 10:18-0400 Diastolic blood pressure 76 mm[Hg] Bing Rich CNM Work Phone: [facility] 10-22-2024 10:18-0400 Systolic blood pressure 119 mm[Hg] Bing Rich CNM Work Phone: [facility] 09-23-2024 09:08-0400 Body height 175.26 cm Bing Rich CNM Work Phone: [facility] 09-23-2024 09:05-0400 Body mass index (BMI) [Ratio] 45.6 kg/m2 Bing Rich CNM Work Phone: [facility] 09-23-2024 09:05-0400 Body weight 140.27 kg Bing Rich CNM Work Phone: [facility] 09-23-2024 09:05-0400 Diastolic blood pressure 67 mm[Hg] Bing Rich CNM Work Phone: [facility] 09-23-2024 09:05-0400 Systolic blood pressure 121 mm[Hg] Bing Rich CNM Work Phone: [facility] Encounters Encounter Date Encounter Type Care Provider Facility Start: 01-24-2025 End: 01-24-2025 ambulatory Genie Guy NP Facility:[facility] Start: 01-24-2025 End: 01-24-2025 Patient encounter procedure Genie Guy NP-C -[facility] Work Phone: Start: 01-12-2025 End: 01-12-2025 Patient encounter procedure Genie Guy NP-C -[facility] Work Phone: Start: 01-12-2025 End: 01-12-2025 ambulatory Bing LUIM Work Phone: -[facility] Start: 12-16-2024 End: 12-16-[address] Fiordaliza Zhong MD -[facility] Work Phone: Start: 12-16-2024 End: 12-16-2024 ambulatory Bing Rich CNM Work Phone: [facility] Work Phone: Start: 11-23-2024 End: 11-23-2024 ambulatory MD [facility] Start: 11-17-2024 End: 11-17-2024 Patient encounter procedure Genie Guy LUMBER LOADER-C -[facility] Work Phone: Start: 11-17-2024 End: 11-17-2024 ambulatory Bing Rich CNM Work Phone: [facility] Work Phone: Start: 11-17-2024 End: 11-17-2024 ambulatory Genie Guy NP Facility:[facility] Start: 10-22-2024 End: 10-22-[address] Aye Dey DO -[facility] Work Phone: Start: 10-22-2024 End: 10-22-2024 ambulatory Aye Dey Facility:[facility] Start: 10-04-2024 End: 10-04-2024 ambulatory Bing Rich CNM Work Phone: [facility] Work Phone: Start: 10-04-2024 End: 10-04-[address] Aye Dey DO -Lab, [facility] Start: 10-04-2024 End: 10-04-2024 ambulatory Aye Dey Facility:[facility] Start: 09-23-2024 End: 09-23-2024 Patient encounter procedure Bing Rich CNM -[facility] Work Phone: Start: 09-23-2024 End: 09-23-2024 ambulatory Bing Rich CNM Work Phone: [facility] Work Phone: Start: 09-23-2024 End: 09-23-2024 ambulatory Bing Rich Facility:[facility] Start: 03-06-2023 End: 03-06-2023 ambulatory [facility] Work Phone: Start: 03-06-2023 End: 03-06-2023 Patient encounter procedure [facility] [place] Work Phone: Start: 02-19-2022 End: 02-19-2022 Patient encounter procedure [facility] Procedures Date Procedure Procedure Detail Performing Clinician Start: 11-17-2024 Procedure Bing Rich CNJuanita Work Phone: Comment on above: Test Ordered: [id number] AFP, Serum, Open Sp jeb BifidaResults Report TG Reference Range: .Test Results: Note: TG See interpretation. Reference Range: .Gest. Age on Collection Date 18.9 weeks TG Reference Range: .Gestat. Age Based On As provided TG Reference Range: .Recalculations are not recommended when gestational datingby LMP and ultrasound are within 10 days.Maternal Age [age] MEET 35[age]6 yr TG Reference Range: .Race TG Reference Range: .Weight Comment lbs TG Reference Range: .Not provided.Insulin Dep Diabetes No TG Reference Range: .Multiple Gestation No TG Reference Range: .AFP Value 36.2 ng/mL TG Reference Range: .AFP MoM Note: TG See interpretation. Reference Range: .OSBR Risk 1 IN Note: TG See interpretation. Reference Range: .Interpretation Comment TG Reference Range: .Interpretation:An interpretation CANNOT be provided for this patientbecause necessary patient information was not provided (oneor more of: gestational age, weight, or patient age).Please call us with new clinical information.Comment: Comment TG Reference Range: .Candice Simmons, Ph.D., DABCCDirectorReferences: Available Upon Request.Multiples Of Median Cutoffs For AFP ElevationsSingleton 2.5 Black 2.8IDD 2.0 Twins 4.5 Abbreviation DefinitionsIDD - Insulin Dep DiabetesOSBR - Open Spina Bifida RiskFor further inquiries contact [employer] at [phone].This test was developed and its performance characteristicsdetermined by [employer]. It has not been cleared or approvedby the Food and Drug Administration.Performed at: [facility] [id number] [facility], [place], [place] [id number] Director: Cara Lanza [facility], Phone: [phone] at: [facility] [id number] [place], [place] [id number] Director: Jake Ferreira PhD, Phone: [phone] Test Ordered: [id number] AFP, Serum, Open Spina BifidaResults Comment TG Reference Range: .The MOM and risk factors of this report have been modifiedbased on new information supplied to us by the client ortheir designated telephone service representative.The Weight was changed from Not provided. to 317.Test Results: Note: TG *Screen Negative* Reference Range: .Gest. Age on Collection Date 18.9 weeks TG Reference Range: .Gestat. Age Based On As provided TG Reference Range: .Recalculations are not recommended when gestational datingby LMP and ultrasound are within 10 days.Maternal Age [age] MEET 35[age]6 yr TG Reference Range: .Race TG Reference Range: .Weight 317 lbs TG Reference Range: .Insulin Dep Diabetes No TG Reference Range: .Multiple Gestation No TG Reference Range: .AFP Value 36.2 ng/mL TG Reference Range: .AFP MoM 1.13 TG Reference Range: .OSBR Risk 1 IN 8106 TG Reference Range: .Interpretation Comment TG Reference Range: .Interpretation: Screen NegativeThis result is screen negative for OSB. The AFP MoMcalculated is based on the gestational age provided. MS-AFPcan identify up to 80% of open neural tube defects.Closed neural tube defects and some open defects may not bedetected by this test. This test does not screen for fetalDown Syndrome or Trisomy 18. If screening for Down Syndromeor Trisomy 18 is desired, contact [facility] to discuss available options. The AmericanCollege of Obstetricians and Gynecologists recommendsamniocentesis be offered to women age 35 and older.This is a corrected report. The previously reported result(s) were:Test Result Date First Reported Updates reported on: 11/23/2024 3:49 PMAFP MOM VALUE 11/22/2024 4:47 PM See interpretation.INTERP 11/22/2024 4:47 PM Interpretation: An interpretation CANNOT be provided for this patient because necessary patient information was not provided (one or more of: gestational age, weight, or patient age). Please call us with new clinical information.OSBR RISK 1 IN 11/22/2024 4:47 PM See interpretation.TEST RESULTS: SCREEN 11/22/2024 4:47 PM See interpretation.Comment: Comment TG Reference Range: .Candice Simmons, Ph.D., DABCCDirectorReferences: Available Upon Request.Multiples Of Median Cutoffs For AFP ElevationsSingleton 2.5 Black 2.8IDD 2.0 Twins 4.5 Abbreviation DefinitionsIDD - Insulin Dep DiabetesOSBR - Open Spina Bifida RiskFor further inquiries contact [facility] at [phone].This test was developed and its performance characteristicsdetermined by [facility]. It has not been cleared or approvedby the Food and Drug Administration.Performed at: - [facility] [id number] [place], [place] [id number] Director: Cara Lanza [facility], Phone: [phone] at: - [facility] [id number] Director: Jake Ferreira PhD, Phone: [phone] reported result: COMMENT Edited by: GISELA on 11/23/24:1609 AMENDED REPORT 11/23/24 160[facility] [place] previously reported as: COMMENT Test Ordered: [id number] AFP, Serum, Open Spina BifidaResults Report TG Reference Range: .Test Results: Note: TG See interpretation. Reference Range: .Gest. Age on Collection Date 18.9 weeks TG Reference Range: .Gestat. Age Based On As provided TG Reference Range: .Recalculations are not recommended when gestational datingby LMP and ultrasound are within 10 days.Maternal [age] MEET 35[age]6 yr TG Reference Range: .Race TG Reference Range: .Weight Comment lbs TG Reference Range: .Not provided.Insulin Dep Diabetes No TG Reference Range: .Multiple Gestation No TG Reference Range: .AFP Value 36.2 ng/mL TG Reference Range: .AFP MoM Note: TG See interpretation. Reference Range: .OSBR Risk 1 IN Note: TG See interpretation. Reference Range: .Interpretation Comment TG Reference Range: .Interpretation:An interpretation CANNOT be provided for this patientbecause necessary patient information was not provided (oneor more of: gestational age, weight, or patient age).Please call us with new clinical information.Comment: Comment Reference Range: .Candice Simmons, Ph.D., DABCCDirectorReferences: Available Upon Request.Multiples Of Median Cutoffs For AFP ElevationsSingleton 2.5 Black 2.8IDD 2.0 Twins 4.5 Abbreviation DefinitionsIDD - Insulin Dep DiabetesOSBR - Open Spina Bifida RiskFor further inquiries contact [facility] at [phone].This test was developed and its performance characteristicsdetermined by [facility]. It has not been cleared or approvedby the Food and Drug Administration.Performed at: - [facility] [id number] [place], [place] [id number] Director: Cara Lanza [facility], Phone: [phone] at: [address] [id number] Director: Jake Ferreira PhD, Phone: [phone] Start: 10-04-2024 Procedure Bing Rich [facility] Work Phone: Start: 09-23-2024 Liquid based cervical cytology screening Bing Rich [facility] Work Phone: Comment on above: NEGATIVE FOR INTRAEPITHELIAL LESION OR M ALIGNANCY. This liquid based Th inPrep(R) pap test was screened withthe use of an image guided system. Start: 09-23-2024 Urine culture Bing Rich [facility] Work Phone: Start: 09-23-2024 Hepatitis C antibody measurement Bing tiptonavis [facility] Work Phone: Comment on above: Reactive: Presumptive evidence of antibo dies to HCV. Follow CDC recommendations for supplemental testing.Non-Reactive: Antibodies to HCV were not detected; does not exclude the possibility of exposure to HCVReactive Results are presumptive evidence of antibodies to HCV. Follow CDC recommendations for supplemental testing.Order confirmation testing: HCV Quant by PCR testing - HCVPCR #[id number] Non Reactive: < 0.8 Equivocal: >/= 0.8 to < 1.0 Reactive: >/= 1.0The CDC requires that a reactive/equivocal HCV antibody result be sent out for confirmation. HCV Quant by PCR testing. Start: 09-23-2024 Procedure Bing Rich CNM Work Phone: Start: 09-23-2024 Rubella IgG measurement Bing Tsang [place] Work Phone: Comment on above: Antibody Result: InterpretationNon-React macario: Non-ImmuneReactive: ImmuneThe following results were obtained with the [employer] Rubella IgG assay. Results from assays of other manufacturers cannot be used interchangeably. Start: 09-23-2024 Serologic test for syphilis Bing Blair ms CNM Work Phone: Plan of Treatment Date Care Activity Detail Author Start: 01-24-2025 CBC W Auto Different ial panel - Blood [facility] Start: 01-24-2025 Measurement of gluco se 2 hours after glucose challenge for glucose tolerance test [facility] Start: 01-24-2025 Serologic test for syphilis [facility] Start: 01-24-2025 [facility] CBC W Auto Different ial panel - Blood [facility] Erythrocyte mean cor puscular volume determination [facility] Hematocrit [Volume F raction] of Blood [facility] Hemoglobin [Mass/volume] in Blood [facility] Leukocytes [#/volume] in Blood [facility] Mean corpuscular hem oglobin concentration determination [facility] Mean corpuscular hem oglobin determination [facility] Measurement of gluco se 2 hours after glucose challenge for glucose tolerance test [facility] Neutrophil count [facility] Neutrophil percent d ifferential count [facility] Platelets [#/volume] in Blood [facility] Red blood cell count [facility] Red cell distributio n width determination [facility] Serologic test for syphilis [facility] Immunizations Immunization Date Immunization Notes Care Provider Dwayne samson 01-24-2025 tetanus toxoid, redu lashon diphtheria toxoid, and acellular pertussis vaccine, adsorbed Dr. Aye Dey DO Work Phone: [facility] 01-12-2021 tetanus toxoid, redu lashon diphtheria toxoid, and acellular pertussis vaccine, adsorbed [facility] Payers Date Payer Category Payer Self-pay [id number] 2024 Unknown [id number] 1989 Unknown [id number] Unknown [id number] Unknown [id number] Unknown [id number] Unknown [facility] [place] [id number] * * DO NOT USE [id number] Unknown [id number] Unknown [id number] Unknown [id number] Unknown [id number] Unknown [id number] Unknown [id number] Unknown [id number] Unknown [id number] Unknown [id number] Social History Date Type Detail Facility Start[facility]30[facility] Start: 1990 Sex Assigned At Female [facility] Start: 09-14-2024 Tobacco smoking stat [facility] Ex-smoker (finding) [facility] Start: 10-04-2024 End: 10-09-2024 Sex Female (finding) [facility] Progress note 12-16-2024 Note Date & Type Note Facility 12-16-2024 Progress note [facility] Evaluation note 10-22-2024 Note Date & Type Note Facility 10-22-2024 Evaluation note Diagnosis Onset Date Resolution Advanced maternal age (AMA) in acute October 22, 025 10:13am Pre-existing severe obesity in mother affecting acute October 22, 2024 10:13am acute October 22 10:13am Rh negative state in antepartum period acute October 22 10:13am Supervision of high-risk acute October 22, 2024 10:13am Former smoker, stopped smoking in distant past resolved October 222024 10:13am Spider veins of both lower extremities resolved October 22 10:13am Advanced maternal age (AMA) in acute November 17, 2024 8:37am Pre-existing severe obesity in mother affecting acute November 17 8:37am acute November 17, 2024 8:37am Rh negative state in antepartum period acute November 17, 2024 8:37am Supervision of high-risk acute November 17 8:37am Former smoker, stopped smoking in distant past resolved November 17, 2024 8:37am Spider veins of both lower extremities resolved November 17, 2024 8:37am Advanced maternal age (AMA) in acute December 16 9:02am Pre-existing severe obesity in mother affecting acute December 16 9:02am acute December 16, 2024 9:02am Rh negative state in antepartum period acute December 16, 2024 9:02am Supervision of high-risk acute December 16 9:02am Advanced maternal age (AMA) in acute January 12 9:40am Pre-existing severe obesity in mother affecting acute January 12 9:40am acute January 12, 2025 9:40am Rh negative state in antepartum period acute January 12, 2025 9:40am Supervision of high-risk acute January 12 9:40am Advanced maternal age (AMA) in acute January 24 8:22am Pre-existing severe obesity in mother affecting acute January 24 8:22am acute January 24 8:22am Rh negative state in antepartum period acute January 24 8:22am Supervision of high-risk acute January 24 8:22am [facility] Work Phone: Clinical Note 09-23-2024 Note Date & Type Note Facility 09-23-2024 Note [facility] Pap Smear Specimen Adequacy September 23, 2024 11:59pm Comment . Satisfactory for evaluation. No endocervical component is identified.An endocervical component is not commonly seen in the patient. Comment on above: Satisfactory for rosa luation. No endocervical component is identified.An endocervical component is not commonly seen in the patient. Clinical Note 09-23-2024 Note Date & Type Note Facility 09-23-2024 Note [facility] Pap Smear Specimen Adequacy September 23, 2024 11:59pm Comment . Satisfactory for evaluation. No endocervical component is identified.An endocervical component is not commonly seen in the patient. Comment on above: Satisfactory for rosa luation. No endocervical component is identified.An endocervical component is not commonly seen in the patient. Evaluation note 09-23-2024 Note Date & Type Note Facility 09-23-2024 Evaluation note Diagnosis Onset Date Resolution Advanced maternal age (AMA) in acute September 23 8:56am Former smoker, stopped smoking in distant past acute September 232024 8:56am Pre-existing severe obesity in mother affecting acute September 23, 2024 8:56am acute September 23 8:56am Rh negative state in antepartum period acute September 23 8:56am Spider veins of both lower extremities acute September 23 8:56am Supervision of high-risk acute September 23, 2024 8:56am [facility] Work Phone: Evaluation note 09-23-2024 Note Date & Type Note Facility 09-23-2024 Evaluation note Diagnosis Onset Date Resolution Advanced maternal age (AMA) in acute September 23, 2 025 8:56am Former smoker, stopped smoking in distant past acute September 232024 8:56am Pre-existing severe obesity in mother affecting acute September 23, 2024 8:56am acute September 23 8:56am Rh negative state in antepartum period acute September 23 8:56am Spider veins of both lower extremities acute September 23 8:56am Supervision of high-risk acute September 23, 2024 8:56am Advanced maternal age (AMA) in acute October 22, 025 10:13am Former smoker, stopped smoking in distant past acute October 222024 10:13am Pre-existing severe obesity in mother affecting acute October 22, 2024 10:13am acute October 22 10:13am Rh negative state in antepartum period acute October 22 10:13am Spider veins of both lower extremities acute October 22 10:13am Supervision of high-risk acute October 22, 2024 10:13am Advanced maternal age (AMA) in acute November 17, 2024 8:37am Former smoker, stopped smoking in distant past acute November 17, 2024 8:37am Pre-existing severe obesity in mother affecting acute November 17 8:37am acute November 17, 2024 8:37am Rh negative state in antepartum period acute November 17, 2024 8:37am Spider veins of both lower extremities acute November 17, 2024 8:37am Supervision of high-risk acute November 17 8:37am [facility] Work Phone: Evaluation note 09-23-2024 Note Date & Type Note Facility 09-23-2024 Evaluation note Diagnosis Onset Date Resolution Advanced maternal age (AMA) in acute September 23, 2 025 8:56am Pre-existing severe obesity in mother affecting acute September 23, 2024 8:56am acute September 23 8:56am Rh negative state in antepartum period acute September 23 8:56am Supervision of high-risk acute September 23, 2024 8:56am Former smoker, stopped smoking in distant past resolved September 232024 8:56am Spider veins of both lower extremities resolved September 23 8:56am Advanced maternal age (AMA) in acute October 22, 025 10:13am Pre-existing severe obesity in mother affecting acute October 22, 2024 10:13am acute October 22 10:13am Rh negative state in antepartum period acute October 22 10:13am Supervision of high-risk acute October 22, 2024 10:13am Former smoker, stopped smoking in distant past resolved October 222024 10:13am Spider veins of both lower extremities resolved October 22 10:13am Advanced maternal age (AMA) in acute November 17, 2024 8:37am Pre-existing severe obesity in mother affecting acute November 17 8:37am acute November 17, 2024 8:37am Rh negative state in antepartum period acute November 17, 2024 8:37am Supervision of high-risk acute November 17 8:37am Former smoker, stopped smoking in distant past resolved November 17, 2024 8:37am Spider veins of both lower extremities resolved November 17, 2024 8:37am Advanced maternal age (AMA) in acute December 16 9:02am Pre-existing severe obesity in mother affecting acute December 16 9:02am acute December 16, 2024 9:02am Rh negative state in antepartum period acute December 16, 2024 9:02am Supervision of high-risk acute December 16 9:02am [facility] Work Phone: Evaluation note Note Date & Type Note Facility Evaluation note No assessment information availa [facility] Work Phone: Progress note Note Date & Type Note Facility Progress note Note Date/Time December 16, 2024 9:30a [facility] [address] [place] [address], [address] [place] [address] OFFICE VISIT Date of Service: 12/16/24 MR#: [id number] Acct: [id number] Name: DEMETRIUS FERNANDES Rep #: [id number] : 1990 Provider: Dr. Luther Zhong MD Age/Sex: 34/F [place] [facility] [place]: Signed Intake Vital Signs 09/23/24 09:08 11/17/24 08:40 12/16/24 09:06 Height 5 ft 9 in 5 ft 9 in 5 ft 9 in Weight: 320 lb BMI 47.2 BP 119/69 Intake Visit Reasons: 22wk ob Allergies No Known Allergies Allergy (Verified 12/16/24 09:05) Medications ?Medication ?Instructions ?Recorded ?Confirmed ?Type multivitamin no.47-iron fum 27 1 cap PO DAILY pregnanc y 08/29/20 12/16/24 History mg-folate no.1 1 mg-dha 300 mg capsule (PNV-DHA) docusate sodium 100 mg capsule 100 mg PO QDAY 09/14/24 12/16/24 History (Colace) loratadine 10 mg tablet (Claritin) 10 mg PO QDAY PRN 0 10/22/24 12/16/24 History Last Menstrual Period: 07/11/24 : No PFSH PFSH Medical History Asthma Seasonal allergies Tilted uterus Abnormal Pap smear of cervix Surgical History History of elective History of tonsillectomy Family History Grandfather Diabetes Paternal Type 2 Uncle AA (aortic aneurysm) Brain- Maternal Grandmother AA (aortic aneurysm) Paternal Social History adopted: No household members: spouse and children housing: house number of children: 1 current occupational status: employed and unemployed 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 current occupational exposures/hazards: No pets and animals: Yes (2) pets and animals: dog(s) and fish history of recent travel: No sexually active: Yes Smoking Status: Former smoker how long ago did patient quit smokin years ago second hand exposure: No alcohol intake: current alcohol intake frequency: holidays/special occasions only details: not while substance use type: does not use well-balanced diet: about half the time caffeine: Yes Type: coffee Number of servings: 1 eating out: 1-3 times/week during the past year weight has: increased > 10 lbs what type of physical activity do you participate in: walking frequency: 1-2 times per week duration: 30-45 minutes/day parul/jehovah's witness: None seatbelt use: always do you feel safe at home: Yes additional social history: - [employer] @ 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 Date Name GA/Weeks Outcome Route Bth Weight Infant Gen Labor Lgth Anesthesia Del Locatn Provider FOB 04/14/21 Timmy 41 live - full term 8#2oz Male epidur al [facility] GP Froil[facility] Delivery Date: 04/14/21 Last Updated by: Simi Zarate 2nd degree laceration HPI 22wk ob Details: DEMETRIUS FERNANDES is a 34 year old who presents for routine OB visit. OB Visit MEET Calculator Estimated Delivery Date Method Current WG Current Estimate 04/17/25 LMP (Certain) 22w 4d Other Estimates 04/14/25 Ultrasound #1 23w 0d Expected Delivery Route/Plan Labor Preferences- CB/BF classes: [] labor support person: [] labor intervention preferences: [] pain management options preferred: [] cut cord/dad catch: [] : [] PP control planned: [] discussed possible routes of delivery and associated risks: [] special requests: [] Specific Issue/Plans Covid status: [] Flu vaccine: [] Tdap vaccine: [] Rhogam: [] LARC form signed: [] Problem list reviewed and updated with the most current plan of care details and appropriate orders placed. Relevant counseling for the gestational age provided. Continue routine care and follow up unless otherwise noted in visit notes/problem list details Initial Weight: 309 lb Date -?-?-?-?-?-?-?-?-?-?-?-?- EGA Weight BP Urine Prot -?-?-?-?-?-?-?-?-?-?-?-?- Glucose FHR FuHt Pres Dilation -?-?-?-?-?-?-?-?-?-?-?-?- Effaced St Visit Note 09/23/24 -?-?-?-?-?-?-?-?-?-?-?-?- 10w 4d 309 lb 4 oz (+4 oz) 121/67 -?-?-?-?-?-?-?-?-?-?-?-?- 168 -?-?-?-?-?-?-?-?-?-?-?-?- KW- CRL cons wit h dates. accepts NIPT-very concerned about weight with this KW- CRL cons with dates. acc epts NIPT-very concerned about weight with this . [facility] anatomy order placed 10/22/24 -?-?-?-?-?-?-?-?-?-?-?-?- 14w 5d 312 lb 2 oz (+3 lb 2 oz) 119/76 Negative -?-?-?-?-?-?-?-?-?-?-?-?- Negative 168 -?-?-?-?-?-?-?-?-?-?-?-?- JV- nipt was inc onclusive. plan for afp between 17-21 weeks. anatomy scan with [facility]. 11/17/24 -?-?-?-?-?-?-?-?-?-?-?-?- 18w 3d 317 lb 8 oz (+8 lb 8 oz) 126/80 Negative -?-?-?-?-?-?-?-?-?-?-?-?- Negative 148 -?-?-?-?-?-?-?-?-?-?-?-?- MH-No VB. Dao gutierrez. Denies concerns. AFP today. 12/16/24 -?-?-?-?-?-?-?-?-?-?-?-?- 22w 4d 320 lb (+11 lb) 119/69 Negative -?-?-?-?-?-?-?-?-?-?-?-?- Negative 145 -?-?-?-?-?-?-?-?-?-?-?-?- SM- no vb lof go od fm no regular ctx ACOG First Trimester First Trimester: Desire for , Alcohol, Tobacco Cessation, Illicit/Recreational Drug/Substance Use, Intimate Partner Violence, Barriers to care, Unstable Housing, Communication Barriers, Environmental/Work Hazards, Anticipated Course of Care, Toxoplasmosis Precations, Use of Any medications, Sexual activity, Exercise, Dental Care, Sauna/Hot tub use, Seat Belt use, Childbirth classes/Hospital facilities, Travel, Indications for Ultrasound and Screening for Aneuploidy; Discussed Second Trimester Second Trimester: Signs and Symptoms of Labor, Selecting a care provider, Reproductive Life Planning & Contreception, Care Planning, Depression/Anxiety and Intimate Partner Violence; Discussed Tobacco Cessation Third Trimester Third Trimester: Pain Management Plans, Labor support person(s), Immediate Larc, Signs and Symptoms of Preeclampsia, Feeding No , [place] Education and Family Medical Leave or Disability Forms Results POC Urinalysis 2 Dip (Clinic) Office Urine Glucose Negative Last Edit by Sharon Quintana on 12/16/24 09: 27 Office Urine Protein Negative Last Edit by Sharon Quintana on 12/16/24 09: 27 Coding Level of Care Code OB Routine Diagnoses Advanced maternal age (AMA) in Supervision of high risk in second trimester O09.92 Trimester: second trimester 22 weeks gestation of Z3A.22 Weeks of gestation: 22 weeks Rh negative state in antepartum period O26.899; Z67.91 Pre-existing severe obesity in mother affecting O99.210; E66.01 Assessment and Plan Assessment and Plan (1) Advanced maternal age (AMA) in : Status: Acute (2) Supervision of high-risk : Status: Acute Qualifiers: Trimester: second trimester Qualified Code(s): O09.92 - Supervision of high risk , unspecified, second trimester Comment: PRR, , MEET 04/17/25, boy PC Timmy, Froilan (3) : Status: Acute Qualifiers: Weeks of gestation: 22 weeks Qualified Code(s): Z3A.22 - 22 weeks gestation of Comment: elects NIPT with gender, insufficient DNA for 1st and repeat sample, AFP Neg. Nml anatomy. (4) Rh negative state in antepartum period: Status: Acute Comment: O-, Rhogam @ 28 wks (5) Pre-existing severe obesity in mother affecting : Status: Acute Comment: nl 1 tm hga1c. recommend weekly bpps 34 on, growth US 32 and 36. Orders: Orders POC Urinalysis 2 Dip (Clinic) Today 12/16/24929 <Electronically signed by Fiordaliza sylvester MD> Date _ Fiordaliza Zhong MD Cosigner Signature: Date (if applicable) CC: ~ [facility] Work Phone: Reason for referral (narrative) Note Date & Type Note Facility Reason for referral (narrative) No reason for referral information available [facility] Work Phone: Chief Complaint and Reason for Visit Chief Complaint EORDER Chief Complaint Admit Date 10 WK NOB September 23, 2024 8:5 6am Reason for Visit Admit Date Advanced maternal age (AMA) in September 23, 2024 8:56am Former smoker, stopped smoking in [place] past September 23, 2024 8:56am Pre-existing severe obesity in mother af fecting September 23, 2024 8:56am September 23, 2024 8:5 6am Rh negative state in antepartum period arch 2024 8:56am Spider veins of both lower extremities M arch 2024 8:56am Supervision of high-risk September 23, 2024 8:56am Chief Complaint Admit Date 10 WK NOB September 23, 2024 8:5 6am 14wk OB October 22, 2024 10: 13am 18wk ob November 17, 2024 8:37am Reason for Visit Admit Date Advanced maternal age (AMA) in September 23, 2024 8:56am Former smoker, stopped smoking in [place] t past September 23, 2024 8:56am Pre-existing severe obesity in mother af fecting September 23, 2024 8:56am September 23, 2024 8:5 6am Rh negative state in antepartum period M arch 2024 8:56am Spider veins of both lower extremities M arch 2024 8:56am Supervision of high-risk September 23, 2024 8:56am Advanced maternal age (AMA) in October 22, 2024 10:13am Former smoker, stopped smoking in October 22, 2024 10:13am Pre-existing severe obesity in mother af fecting October 22, 2024 10:13am October 22, 2024 10: 13am Rh negative state in antepartum period A pril 2024 10:13am Spider veins of both lower extremities A pril 2024 10:13am Supervision of high-risk October 22, 2024 10:13am Advanced maternal age (AMA) in November 17, 2024 8:37am Former smoker, stopped smoking in past November 17, 2024 8:37am Pre-existing severe obesity in mother af fecting November 17, 2024 8:37am November 17, 2024 8:37am Rh negative state in antepartum period M ay 2024 8:37am Spider veins of both lower extremities M ay 2024 8:37am Supervision of high-risk November 172024 8:37am Chief Complaint Admit Date 10 WK NOB September 23, 2024 8:5 6am 14wk OB October 22, 2024 10: 13am 18wk ob November 17, 2024 8:37am 22wk ob December 16, 2024 9:02a m Reason for Visit Admit Date Advanced maternal age (AMA) in September 23, 2024 8:56am Pre-existing severe obesity in mother af fecting September 23, 2024 8:56am September 23, 2024 8:5 6am Rh negative state in antepartum period M arch 2024 8:56am Supervision of high-risk September 23, 2024 8:56am Former smoker, stopped smoking in past September 23, 2024 8:56am Spider veins of both lower extremities M arch 2024 8:56am Advanced maternal age (AMA) in October 22, 2024 10:13am Pre-existing severe obesity in mother af fecting October 22, 2024 10:13am October 22, 2024 10: 13am Rh negative state in antepartum period A pri2024 10:13am Supervision of high-risk October 22, 2024 10:13am Former smoker, stopped smoking in past October 22, 2024 10:13am Spider veins of both lower extremities A pril 2024 10:13am Advanced maternal age (AMA) in November 17, 2024 8:37am Pre-existing severe obesity in mother af fecting November 17, 2024 8:37am November 17, 2024 8:37am Rh negative state in antepartum period M ay 2024 8:37am Supervision of high-risk November 172024 8:37am Former smoker, stopped smoking in past November 17, 2024 8:37am Spider veins of both lower extremities M ay 2024 8:37am Advanced maternal age (AMA) in December 16, 2024 9:02am Pre-existing severe obesity in mother af fecting December 16, 2024 9:02am December 16, 2024 9:02a m Rh negative state in antepartum period J 2024 9:02am Supervision of high-risk December 16, 2024 9:02am Chief Complaint Admit Date 10 WK NOB September 23, 2024 8:5 6am 14wk OB October 22, 2024 10: 13am 18wk ob November 17, 2024 8:37am 22wk ob December 16, 2024 9:02a m 26 wk ob January 12, 2025 9:40a m Chief Complaint Admit Date 14wk OB October 22, 2024 10: 13am 18wk ob November 17, 2024 8:37am 22wk ob December 16, 2024 9:02a m 26 wk ob January 12, 2025 9:40a m 28wk ob/glucose/rhogam January 24, 2025 8 :22am Reason for Visit Admit Date Advanced maternal age (AMA) in October 22, 2024 10:13am Pre-existing severe obesity in mother af fecting October 22, 2024 10:13am October 22, 2024 10: 13am Rh negative state in antepartum period A pril 2024 10:13am Supervision of high-risk October 22, 2024 10:13am Former smoker, stopped smoking in past October 22, 2024 10:13am Spider veins of both lower extremities A pril 2024 10:13am Advanced maternal age (AMA) in November 17, 2024 8:37am Pre-existing severe obesity in mother af fecting November 17, 2024 8:37am November 17, 2024 8:37am Rh negative state in antepartum period M ay 2024 8:37am Supervision of high-risk November 172024 8:37am Former smoker, stopped smoking in past November 17, 2024 8:37am Spider veins of both lower extremities M ay 2024 8:37am Advanced maternal age (AMA) in December 16, 2024 9:02am Pre-existing severe obesity in mother af fecting December 16, 2024 9:02am December 16, 2024 9:02a m Rh negative state in antepartum period J [facility] 2024 9:02am Supervision of high-risk December 16, 2024 9:02am Advanced maternal age (AMA) in January 12, 2025 9:40am Pre-existing severe obesity in mother af fecting January 12, 2025 9:40am January 12, 2025 9:40a m Rh negative state in antepartum period J [facility] 2024 9:40am Supervision of high-risk January 12, 2025 9:40am Advanced maternal age (AMA) in January 24, 2025 8:22am Pre-existing severe obesity in mother af fecting January 24, 2025 8:22am January 24, 2025 8:22 am Rh negative state in antepartum period J [facility] 2024 8:22am Supervision of high-risk January 24, 2025 8:22am Family History Relationship Condition Age at Onset Recorded Date/T ramakrishna grandfather Diabetes mellitus Unknown uncle Aortic aneurysm Unknown Relationship Condition Age at Onset Recorded Date/T ramakrishna grandfather Diabetes mellitus Unknown uncle Aortic aneurysm Unknown grandmother Aortic aneurysm Unknown Advance Directives Advance Directive Response Recorded Date/ Time Living Will No April 13 8:08pm Power of Coal Trammer No April 13 021 8:08pm Summary Purpose Additional Source Comments Goals (unrecognized section and content) Goals may be documented in a n alternate sectionGoals may be documented in an alternate sectionGoals may be documented in an alternate sectionGoals may be documented in an alternate sectionGoals may be documented in an alternate sectionGoals may be documented in an alternate sectionGoals may be documented in an alternate sectionGoals may be documented in an alternate section Care Teams (unrecognized sec tion and content) Team Status: Active Member Role Status Dates Dr. Chu Rincon MD Family Provider Active Cristina Barros DO Primary Care Provider Active Team Status: Inactive Member Role Status Dates Cristina Barros DO Primary Care Provi radha, Attending Provider, Referring Provider Active Team Status: Active Member Role Status Dates Dr. Chu Rincon MD Family Provider Active Team Status: Inactive Member Role Status Dates Bing Rich CNM Attending Provider Active S tart: September 23, 2024 End: September 23, 2024 Team Status: Inactive Member Role Status Dates Bing Rich CNM Attending Provider Active S tart: September 23, 2024 End: September 23, 2024 Bing Rich CNM Referring Provider Active S tart: September 23, 2024 End: September 23, 2024 Team Status: Inactive Member Role Status Dates Dr. Aye Dey DO Attending Provider Activ e Start: October 04, 2024 End: October 04, 2024 Dr. Aye Dey DO Referring Provider Activ e Start: October 04, 2024 End: October 04, 2024 Team Status: Inactive Member Role Status Dates Dr. Aye Dey DO Attending Provider Activ e Start: October 22, 2024 End: October 22, 2024 Team Status: Inactive Member Role Status Dates Genie Guy NP LUMBER LOADER-C Attending Provider Active Start: November 17, 2024 End: November 17, 2024 Team Status: Inactive Member Role Status Dates Genie Guy NP, LUMBER LOADER-C Attending Provider Active Start: November 17, 2024 End: November 17, 2024 Genie Guy NP, LUMBER LOADER-C Referring Provider Active Start: November 17, 2024 End: November 17, 2024 Team Status: Inactive Member Role Status Dates Dr. Fiordaliza Zhong MD Attending Provider Active Start: December 16, 2024 End: December 16, 2024 Team Status: Inactive Member Role/Relationship Status Dates Bing Rich CNM Attending Provider Active S tart: September 23, 2024 End: September 23, 2024 Team Status: Inactive Member Role/Relationship Status Dates Bing Rich CNM Attending Provider Active S tart: September 23, 2024 End: September 23, 2024 Bing Rich CNM Referring Provider Active S tart: September 23, 2024 End: September 23, 2024 Team Status: Inactive Member Role/Relationship Status Dates Dr. Aye Dey DO Attending Provider Activ e Start: October 04, 2024 End: October 04, 2024 Dr. Aye Dey DO Referring Provider Activ e Start: October 04, 2024 End: October 04, 2024 Team Status: Inactive Member Role/Relationship Status Dates Dr. Aye Dey DO Attending Provider Activ e Start: October 22, 2024 End: October 22, 2024 Team Status: Inactive Member Role/Relationship Status Dates Genie Guy LUMBER LOADER, LUMBER LOADER-C Attending Provider Active Start: November 17, 2024 End: November 17, 2024 Team Status: Inactive Member Role/Relationship Status Dates Genie Guy LUMBER LOADER, LUMBER LOADER-C Attending Provider Active Start: November 17, 2024 End: November 17, 2024 Genie Guy LUMBER LOADER, LUMBER LOADER-C Referring Provider Active Start: November 17, 2024 End: November 17, 2024 Team Status: Inactive Member Role/Relationship Status Dates Dr. Fiordaliza Zhong MD Attending Provider Active Start: December 16, 2024 End: December 16, 2024 Team Status: Inactive Member Role/Relationship Status Dates Genie Guy LUMBER LOADER, LUMBER LOADER-C Attending Provider Active Start: January 12, 2025 End: January 12, 2025 Team Status: Inactive Member Role/Relationship Status Dates Dr. Aye Dey DO Attending Provider Activ e Start: October 04, 2024 End: October 04, 2024 Dr. Aye Dey DO Referring Provider Activ e Start: October 04, 2024 End: October 04, 2024 Team Status: Inactive Member Role/Relationship Status Dates Dr. Aye Dey DO Attending Provider Activ e Start: October 22, 2024 End: October 22, 2024 Team Status: Inactive Member Role/Relationship Status Dates Genie Smithtings LUMBER LOADER, LUMBER LOADER-C Attending Provider Active Start: November 17, 2024 End: November 17, 2024 Team Status: Inactive Member Role/Relationship Status Dates Genie Richards LUMBER LOADER, LUMBER LOADER-C Attending Provider Active Start: November 17, 2024 End: November 17, 2024 Genie Brooks LUMBER LOADER, LUMBER LOADER-C Referring Provider Active Start: November 17, 2024 End: November 17, 2024 Team Status: Inactive Member Role/Relationship Status Dates Dr. Fiordaliza Zhong MD Attending Provider Active Start: December 16, 2024 End: December 16, 2024 Team Status: Inactive Member Role/Relationship Status Dates Genie Brooks LUMBER LOADER, LUMBER LOADER-C Attending Provider Active Start: January 12, 2025 End: January 12, 2025 Team Status: Inactive Member Role/Relationship Status Dates Genie Brooks LUMBER LOADER, LUMBER LOADER-C Attending Provider Active Start: January 24, 2025 End: January 24, 2025 Team Status: Active Member Role/Relationship Status Dates Genie Brooks LUMBER LOADER, LUMBER LOADER-C Attending Provider Active Start: January 24, 2025 INFORMATION SOURCE (unrecogn ized section and content) DATE CREATED AUTHOR 11/24/2024 [facility] DATE CREATED AUTHOR AUTHOR'S IMER AGUIRRE 01/23/2025 [facility] FOR RECORDS PERTAINING TO PATIENTS WHO ARE OR HAVE BEEN ENROLLED IN A CHEMICAL DEPENDENCY/SUBSTANCEABUSE PROGRAM, SOME INFORMATION MAY BE OMITTED. This clinical summary was aggregated from multiple sources. Caution should be exercised in using it in the provision of clinical care. This summary normalizes information from multiple sources, and as a consequence, information in this document may materially change the coding, format and clinical context of patient data. In addition, data may be omitted in some cases. CLINICAL DECISIONS SHOULD BE BASED ON THE PRIMARY CLINICAL RECORDS. [employer] [facility]. provides no warranty or guarantee of the accuracy or completeness of information in this document.
[2025-01-25 07:13] LABS: Glucose GTT-Gestation. Fasting 91 mg/dL (<105)
[2025-01-25 09:47] LABS: Glucose GTT-Gestational 1 Hr 151 mg/dL (<190)
[2025-01-25 10:36] LABS: Glucose GTT-Gestational 2 Hr 126 mg/dL (<165)
[2025-01-25 11:16] LABS: Glucose GTT-Gestational 3 Hr 117 L (<145)
== END | disposition home or self-care (01) ==
LOC: LAB 06:45
PROVIDERS: PCP Family Medicine; Referring Provider Nurse Practitioner Women's Health; Visit Provider Nurse Practitioner Women's Health
DX: O99.810 Abnormal glucose complicating pregnancy (principal); Z3A.00 Weeks of gestation of pregnancy not specified
CPT/HCPCS: 36415; 82951; 82952

== ENCOUNTER 2025-03-09 10:00 | Outpatient (CLI) | payer OTHER, SELFPAY ==
[2025-03-09 10:19] VITALS: RESP 18; TEMP 36.4
[2025-03-09 10:20] VITALS: BP 157/69; PULSE 79
[2025-03-09 10:22] VITALS: BP 122/58; PULSE 77
[2025-03-09 10:29] VITALS: BMI 50.1
[2025-03-09 10:33] VITALS: PULSE 67; O2SAT 96
--- NOTE | 2025-03-09 11:12 | NURSING ---
Pt. sent from office and physician viewed tracing.
--- NOTE | 2025-03-09 20:38 | OB.TRI.HP_ITS ---
HPI - General HPI Narrative DEMETRIUS FERNANDES, is a 34 F who presents to L&D for an NST at 34 weeks due to severe polyhydramnios and morbid obesity. Her fetus is in the breech presentation. Maternal Data Information MEET Calculator Estimated Delivery Date Method Current WG Current Estimate 04/17/25 LMP (Certain) 34w 3d Other Estimates 04/14/25 Ultrasound #1 34w 6d PFSH PFSH Medical History Asthma Seasonal allergies Tilted uterus Abnormal Pap smear of cervix Home Medications ?Medication ?Instructions ?Recorded ?Last Taken ?Type multivitamin no.47-iron fum 27 1 cap PO DAILY pregnanc y 08/29/20 03/08/25 19:00 History mg-folate no.1 1 mg-dha 300 mg 1 cap capsule (PNV-DHA) famotidine 40 mg tablet (Pepcid) 40 mg PO BID PRN hear tburn #30 tabs 01/12/25 03/08/25 19:00 Rx 40 mg alcohol swabs (Alcohol Wipes) 1 pad topical DAILY #100 ea 03/07/25 Unknown Rx blood sugar diagnostic (Advanced #100 ea 03/07/25 Unkn own Rx Glucose Meter Test Strips) flash glucose scanning reader #1 ea 03/07/25 Unknown R x (FreeStyle Hardeep 2 [place]) lancets #200 ea 03/07/25 Unknown Rx Allergy/AdvReac Type Severity Reaction Status Date / Time No Known Allergies Allergy Verified 03/09/25 10:26 Family History Grandfather Diabetes Paternal Type 2 Uncle AA (aortic aneurysm) Brain- Maternal Grandmother AA (aortic aneurysm) Paternal Surgical History History of elective History of tonsillectomy Social History adopted: No household members: spouse and children housing: house number of children: 1 current occupational status: employed and unemployed 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 [employer] current occupational exposures/hazards: No pets and animals: Yes (2) pets and animals: dog(s) and fish history of recent travel: No sexually active: Yes Smoking Status: Former smoker how long ago did patient quit smokin years ago second hand exposure: No alcohol intake: current alcohol intake frequency: holidays/special occasions only details: not while substance use type: does not use well-balanced diet: about half the time caffeine: Yes Type: coffee Number of servings: 1 eating out: 1-3 times/week during the past year weight has: increased > 10 lbs what type of physical activity do you participate in: walking frequency: 1-2 times per week duration: 30-45 minutes/day parul/temple: None seatbelt use: always do you feel safe at home: Yes additional social history: - [employer]il[employer] @ 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 Date Name GA/Weeks Outcome Route Bth Weight Gen Labor Lgth Anesthesia Del Locat Provider FOB 04/14/21 Timmy 41 live - full term 8#2oz Male epidur al [facility] GP Froilan Delivery Date: 04/14/21 Last Updated by: Simi Zarate 2nd degree laceration Visit Details Expected Delivery Route/Plan Labor Preferences- CB/BF classes: no labor support person: Brendan labor intervention preferences: [] pain management options preferred: epidural cut cord/dad catch: cord : yes PP control planned: discussed discussed possible routes of delivery and associated risks: [] special requests: [] Plans Covid status: [] Flu vaccine: [] Tdap vaccine: given 01/24/25 Rhogam: given 01/24/25 LARC form signed: yes Problem list reviewed and updated with the most current plan of care details and appropriate orders placed. Relevant counseling for the gestational age provided. Continue routine care and follow up unless otherwise noted in visit notes/problem list details OB Flowsheet Initial Weight: 309 lb Date -?-?-?-?-?-?-?-?-?-?-?-?- EGA Weight BP Urine Prot -?-?-?-?-?-?-?-?-?-?-?-?- Glucose FHR FuHt Pres Dilation -?-?-?-?-?-?-?-?-?-?-?-?- Effaced St Visit Note 09/23/24 -?-?-?-?-?-?-?-?-?-?-?-?- 10w 4d 309 lb 4 oz (+4 oz) 121/67 -?-?-?-?-?-?-?-?-?-?-?-?- 168 -?-?-?-?-?-?-?-?-?-?-?-?- KW- CRL cons wit h dates. accepts NIPT-very concerned about weight with this KW- CRL cons with dates. acc epts NIPT-very concerned about weight with this . [facility] anatomy order placed 10/22/24 -?-?-?-?-?-?-?-?-?-?-?-?- 14w 5d 312 lb 2 oz (+3 lb 2 oz) 119/76 Negative -?-?-?-?-?-?-?-?-?-?-?-?- Negative 168 -?-?-?-?-?-?-?-?-?-?-?-?- JV- nipt was inc onclusive. plan for afp between 17-21 weeks. anatomy scan with [facility]. 11/17/24 -?-?-?-?-?-?-?-?-?-?-?-?- 18w 3d 317 lb 8 oz (+8 lb 8 oz) 126/80 Negative -?-?-?-?-?-?-?-?-?-?-?-?- Negative 148 -?-?-?-?-?-?-?-?-?-?-?-?- MH-No VB. Dao gutierrez. Denies concerns. AFP today. 12/16/24 -?-?-?-?-?-?-?-?-?-?-?-?- 22w 4d 320 lb (+11 lb) 119/69 Negative -?-?-?-?-?-?-?-?-?-?-?-?- Negative 145 -?-?-?-?-?-?-?-?-?-?-?-?- SM- no vb lof go od fm no regular ctx 01/12/25 -?-?-?-?-?-?-?-?-?-?-?-?- 26w 3d 328 lb 8 oz (+19 lb 8 oz) 130/82 Negative -?-?-?-?-?-?-?-?-?-?-?-?- Negative 147 27 -?-?-?-?-?-?-?-?-?-?-?-?- -No VB, LOF. G ood FM. -No VB, LOF. Jamal FM. Hear tburn more problematic. Rx sent 01/24/25 -?-?-?-?-?-?-?-?-?-?-?-?- 28w 1d 331 lb 2 oz (+22 lb 2 oz) 124/72 Negative -?-?-?-?-?-?-?-?-?-?-?-?- Negative 141 29 -?-?-?-?-?-?-?-?-?-?-?-?- -No VB, LOF. G marlene Fm. Rhogam, tdap, 28wk labs pending. 02/07/25 -?-?-?-?-?-?-?--?-?-?-?-?- 30w 1d 332 lb (+23 lb) 107/71 Negative -?-?-?-?-?-?-?-?-?-?-?-?- Negative 135 32 -?-?-?-?-?-?-?-?-?-?-?-?- JV- patient comp lains of upper back/flank pain on the left. She denies dysuria, hematuria, fevers or chills. She states that when she puts pressure there it feels better. we discussed trying a chiropractor and also some flexeril this week to see if her muscles may relax enough to get better. 02/22/25 -?-?-?-?-?-?-?-?-?-?-?-?- 32w 2d 338 lb 1 oz (+29 lb 1 oz) 132/76 Negative -?-?-?-?-?-?-?-?-?-?-?-?- Negative 145 34 -?-?-?-?-?-?-?-?-?-?-?-?- KW- no vb/lof/ct x. good fm. still having upper back pain- information given for chiropractor. growth US end of month 03/09/25 -?-?-?-?-?-?-?-?-?-?-?-?- 34w 3d 339 lb 6 oz (+30 lb 6 oz) 136/85 Negative -?-?-?-?-?-?-?-?-?-?-?-?- Negative 141 40 -?-?-?-?-?-?-?-?-?-?-?-?- JV- MIKE is 36.2, she is monitoring her glucose levels and 2 hrpp are so far elevated in the 140's . Dr. Seymour wants to do her bpp next week and recommends delivery (will be section for breech) at 37 weeks. she is to have weekly bpps and nsts until then. Continue glucose monitoring. ROS Constitutional Constitutional: Reports systems reviewed and no addt'l complaints, except as documented Gastrointestinal Gastrointestinal: Denies bloating, constipation, cramping, diarrhea, nausea or vomiting Genitourinary Genitourinary: Reports other Details: Denies vaginal odor, vaginal bleeding, or vaginal discharge ; Denies difficulty urinating or flank pain NST FHR Rate Baby A Baseline: 140 Variability:: Moderate Accelerations:: 15 x 15 Decelerations:: None NST Reactive:: Yes FHR Category:: Category I Assessment & Plan (1) Breech presentation: COMMENT: at 34 weeks per MFM (2) Macrosomia affecting management of mother, antepartum: COMMENT: EFW 3205 at 34 weeks per MFM, QID glucose testing (3) Polyhydramnios affecting : COMMENT: MIKE 36 at 34 weeks per MFM. QID glucose testing. twice weekly ANFS-BPP and NST. Consult with MFM ordered. deliver at 37 weeks (4) Abnormal glucose affecting : COMMENT: nl 3 hr GTT (5) Advanced maternal age (AMA) in : (6) Supervision of high-risk : QUALIFIERS: Trimester: second trimester Qualified Code(s): O09.92 - Supervision of high risk , unspecified, second trimester COMMENT: PRR, , MEET 04/17/25, boy PC Timmy, Froilan (7) : QUALIFIERS: Weeks of gestation: 34 weeks Qualified Code(s): Z3A.34 - 34 weeks gestation of COMMENT: elects NIPT with gender, insufficient DNA X 2; AFP Neg. Nml anatomy. (8) Rh negative state in antepartum period: COMMENT: O-, Rhogam @ 28 wks, Given 01/24/25 (9) Pre-existing severe obesity in mother affecting : COMMENT: nl 1 tm hga1c. recommend weekly bpps 34 on, growth US 32 and 36. PLAN: Plan NST is reactive ok to dc home plan is delivery at 37 weeks. She is requesting a section 03/28 Charges/Coding Multi Select Codes Urinary/Genital Urinary/Genital CPT Codes: 35990-98 non-stress test Interp
== END 2025-03-09 11:10 | disposition home or self-care (01) ==
LOC: WPOUT 10:12 → WP 10:12
PROVIDERS: PCP Family Medicine; Referring Provider Obstetrics & Gynecology; Visit Provider Obstetrics & Gynecology
DX: O40.3XX0 Polyhydramnios, third trimester, not applicable or unspecified (principal); E66.01 Morbid (severe) obesity due to excess calories; Z3A.34 34 weeks gestation of pregnancy; O99.213 Obesity complicating pregnancy, third trimester; O32.1XX0 Maternal care for breech presentation, not applicable or unspecified; Z87.891 Personal history of nicotine dependence; N96 Recurrent pregnancy loss; O99.810 Abnormal glucose complicating pregnancy; Z67.91 Unspecified blood type, Rh negative; O99.893 Other specified diseases and conditions complicating puerperium
CPT/HCPCS: 59025; 99221; G0378

== ENCOUNTER 2025-03-15 10:20 | Outpatient (CLI) | payer OTHER, SELFPAY ==
[2025-03-15 10:40] VITALS: BMI 49.8
[2025-03-15 10:44] VITALS: BP 123/66; PULSE 74
[2025-03-15 10:55] VITALS: RESP 16
--- NOTE | 2025-03-15 11:10 | OB.TRI.PN ---
Progress Notes Date of Service: 03/15/25 Progress Note: Patient presents for triage evaluation secondary to polyhydramnios FHT: 130-135 Moderate variability reactive no decelerations category I tracing [place]: no regular Contractions Assessment and plan: polyhydramnios 35 weeks Reactive NST, reassuring maternal and status patient discharged to home to follow-up as scheudled. See problem list details for additional plan information. Charges/Coding Procedures Urinary/Genital 52xxx-59xxx: 68755-54 non-stress test Interp Assessment & Plan (1) Polyhydramnios affecting : COMMENT: MIKE 36 at 34 weeks per MFM. QID glucose testing. twice weekly ANFS-BPP and NST. Consult with MFM ordered. deliver at 37 weeks (2) Macrosomia affecting management of mother, antepartum: COMMENT: EFW 3205 at 34 weeks per MFM, QID glucose testing (3) Supervision of high-risk : QUALIFIERS: Trimester: second trimester Qualified Code(s): O09.92 - Supervision of high risk , unspecified, second trimester COMMENT: PRR, , MEET 04/17/25, boy PC Timmy, Froilan (4) Breech presentation: COMMENT: at 34 weeks per MFM (5) : QUALIFIERS: Weeks of gestation: 34 weeks Qualified Code(s): Z3A.34 - 34 weeks gestation of COMMENT: elects NIPT with gender, insufficient DNA X 2; AFP Neg. Nml anatomy.
== END 2025-03-15 11:15 | disposition home or self-care (01) ==
LOC: WPOUT 10:31 → WP 10:31
PROVIDERS: PCP Family Medicine; Referring Provider Obstetrics & Gynecology; Visit Provider Obstetrics & Gynecology
DX: O40.3XX0 Polyhydramnios, third trimester, not applicable or unspecified (principal); Z3A.34 34 weeks gestation of pregnancy; O09.523 Supervision of elderly multigravida, third trimester; O32.1XX0 Maternal care for breech presentation, not applicable or unspecified
CPT/HCPCS: 59025; 59050; 99221; G0378

== ENCOUNTER → 2025-03-21 | Outpatient (CLI) | payer OTHER, SELFPAY ==
--- OUTSIDE RECORDS SUMMARY | 2025-03-21 20:08 | XMS RPT_ITS | CCD ---
Author Organization [facility] Team Providers Care Automation Test Developer Name Role Phone Greg Rich CNM Attending Provider [phone] Greg Rich CNM Referring Provider [phone] Dr. Aye Dey DO Attending Provider Dr. Aye Dey DO Referring Provider Brooks CISNEROS-CErick Attending Provider [phone] Brooks CISNEROS-CErick Referring Provider [phone] Dr. Fiordaliza Zhong MD Attending Provider Dr. Delmar Luna MD Primary Care Provider Dr. Aye Dey DO Attending Provider Dr. Delmar Luna MD Referring Provider Dr. Aye Dey DO Attending Provider Greg Rich CNM Attending Provider [phone] Dr. Aye Dey DO Referring Provider Dr. Aye Dey DO Other Provider [phone] Dr. Fiordaliza Zhong MD Referring Provider Dr. Fiordaliza Zhong MD Other Provider [phone] NO PRIMARY CARE, Primary Care Unavailable GREG RICH Referring Unavailable COSTA CERRATO Attending Unavailable ERICK RODRIGUEZ Referring Unavailable NO YESSICA RODRIGUEZ MD Primary Care Unavailable COSTA CERRATO Attending Unavailable FRANKY BADILLO Attending Unavailable DELMAR LUNA Primary Care UnavailGREG Hercules Referring Unavailable DELMAR LUNA Primary Care Unavailabl e GREG RICH Referring Unavailable FRANKY BADILLO Attending Unavailable [facility] Care Unavailabl e AYE RUVALCABA Attending Unavailable REFERRED, SELF Referring Unavailable [facility] Primary Care Unavailabl e REFERRED, SELF Referring Unavailable FRANKY BADILLO Attending Unavailable VandAye Mayen Attending Unavailabl e [facility] Referring Unavailable [facility] Care Unavailable [facility] Referring Unavailable [facility] Care Unavailable Greg Rich Attending Unavailable [facility] Care Unavailable Fiordaliza Zhong Attending Unavailable Greg Rich Referring Unavailable Greg Rich Attending Unavailable Vande Velwallace, Aye Attending Unavailabl e [place], [place] Referring Unavailable [facility] Care Unavailable Vande July, yAe Attending Unavailabl e [facility] Care Unavailable Fiordaliza Zhong Referring Unavailable Fiordaliza Zhong Attending Unavailable Fiordaliza Zhong Consulting Unavailable Vande Velwallace, Aye Attending Unavailabl e Vande VeldeAye Consulting Unavailabl e Vande Velde, Aye Referring Unavailabl e [facility] Care Unavailable [facility] Care Unavailable Brooks FOOD SAFETY OFFICER, Erick Attending Unavailable Brooks FOOD SAFETY OFFICER, Erick Referring Unavailable Brooks FOOD SAFETY OFFICER, Erick Referring Unavailable [place] FOOD SAFETY OFFICER, Erick Attending Unavailable [place] FOOD SAFETY OFFICER, Erick Attending Unavailable Brooks FOOD SAFETY OFFICER, Erick Attending Unavailable [facility] Care Unavailable Fiordaliza Zhong Referring Unavailable Fiordaliza Zhong Attending Unavailable [facility] Unavailable Fiordaliza Zhong Admitting Unavailable Fiordaliza Zhong Attending Unavailable Vande Velde, Aye Referring Unavailabl e Vande Velde, Aye Attending Unavailabl e [facility] Unavailable Vande Velde, Aye Referring Unavailabl e Vande Velde, Aye Attending Unavailabl e Greg Rich Attending Unavailable Fiordaliza Zhong Attending Unavailable [place] FOOD SAFETY OFFICER, Erick Attending Unavailable Brooks FOOD SAFETY OFFICER, Erick Attending Unavailable [place] FOOD SAFETY OFFICER-C, Erick Attending Provider Brooks FOOD SAFETY OFFICER-C, Erick Referring Provider Medications Current Medications Medication Drug Class(es) Dates Sig (Normalized) Sig (Original) Alcohol Swabs (Alcohol Wipes) pads, medicated (4 sources) Start: 03-07-2025 Alcohol Swabs (Alcohol Wipes) pads, medicated Active 1 NMA TOPICAL DAILY 100 0 March 07, 2025 12:00am famotidine 40 mg oral tablet (10 sources) Histamine-2 Receptor Antagonist Start: 01-12-2025 take 1 tablet by mouth twice daily as needed for gastroesophageal reflux disease Famotidine (Pepcid) 40 mg tablet Active 40 mg PO TWICE A DAY as needed for heartburn 30 3 January 12, 2025 12:00am Flash Glucose Scanning [place] (Freestyle Hardeep 2 [place]) misc (4 sources) Start: 03-07-2025 Flash Glucose Scanning [place] (Freestyle Hardeep 2 [place]) misc Active 0 .ROUTE .MEDSUPPLY 1 0 March 07, 2025 12:00am As directed Multivit 98-Vwgn-Clciaq 1-Dha (Pnv-Dha) 27 mg iron-1 mg -300 mg capsule (16 sources) Start: 08-29-2020 Multivit 04-Fuje-Wbunvk 1-Dha (Pnv-Dha) 27 mg iron-1 mg -300 mg capsule Active 1 NMA PO DAILY August 29, 2020 1:00am Start: 08-29-2020 Multivit 47-Ir on-Folate 1-Dha (Pnv-Dha) 27 mg iron-1 mg -300 mg capsule Active 1 NMA PO DAILY August 29, 2020 1:00am Start: 08-29-2020 take 1 capsule by [facility] once daily Multivit 15-Csan-Buhgdd 1-Dha (Pnv-Dha) 27 mg iron-1 mg -300 mg capsule Active 1 CAP PO DAILY August 29, 2020 1:00am Completed/Discontinued Medications Medication Drug Class(es) Dates Sig (Normalized) Sig (Original) Aspirin (16 sources) Platelet Aggregation Inhibitor, Nonsteroidal Anti-inflammatory Drug [...] 13, 2021 12:00am May 30, 2021 12:25pm cyclobenzaprine hydrochloride 10 mg oral tablet (6 sources) Muscle Relaxant Start: 02-07-2025 End: 03-09-2025 take 1 tablet by mouth at bedtime as needed for muscle spasms Cyclobenzaprine 10 mg tablet Discontinued 10 mg PO BEDTIME as needed for muscle spasm 7 0 February 07, 2025 12:00am March 09, 2025 10:26am docusate sodium 100 mg oral capsule (14 sources) Start: 09-14-2024 End: 01-12-2025 take 1 capsule by mouth once daily Docusate Sodium (Colace) 100 mg capsule Discontinued 100 mg PO daily September 14, 2024 1:00am January 12, 2025 10:00am ibuprofen 800 mg oral tablet (16 sources) Nonsteroidal Anti-inflammatory Drug Start: 04-14-2021 End: 09-14-2024 take 1 tablet by mouth every eight hours as needed for pain Ibuprofen 800 mg tablet Discontinued 800 mg PO Q8H as needed for pain 60 1 April 14, 2021 12:00am September 14, 2024 9:24am loratadine 10 mg oral tablet (12 sources) Start: 10-22-2024 End: 01-12-2025 take 1 tablet by mouth once daily as needed Loratadine (Claritin) 10 mg tablet Discontinued 10 mg PO daily as needed October 22, 2024 12:00am January 12, 2025 10:00am omeprazole 20 mg delayed release oral capsule (16 sources) Proton Pump Inhibitor Start: 02-08-2021 End: 05-30-2021 take 1 capsule by mouth once daily Omeprazole 20 mg capsule,delayed release(DR/EC) Discontinued 20 mg PO DAILY February 08, 2021 12:00am May 30, 2021 12:25pm indigestion Problems Active Problems Problem Classification Problem Date Documented Da te Episodic/Chronic Diabetes or abnormal glucose tolerance complicating ; childbirth; or the puerperium (20 sources) Abnormal glucose level; Translations: [Abnormal glucose complicating ] Onset: 03-09-2025 01-25-2025 Episodic Comment on above: nl 3 hr GTT Immunizations and screening for infectious disease (1 source) Encounter for immunization; Translations: [Encounter for immunization] Onset: 01-24-2025 Episodic Malposition; malpresentation (15 sources) Breech presentation; Translations: [Maternal care for breech presentation, not applicable or unspecified] Onset: 03-15-2025 03-07-2025 Episodic Comment on above: at 34 weeks per MFM Other complications of (20 sources) Severe obesity complicating ; Translations: [Obesity complicating , unspecified trimester] 09-24-2024 Chronic Comment on above: [id number] nl 1 tm hga1c. recom mend weekly bpps 34 on, growth US 32 and 36. Other complications of (2 sources) Obesity complicating , unspecified trimester; Translations: [Obesity complicating , unspecified trimester] Onset: 03-09-2025 Chronic Other complications of (20 sources) RhD [...] Comment on above: PRR, , MEET 04/17, PC Timmy, Froilan PRR, , MEET 04/17, boy PC Timmy, Froilan Other complications of (20 sources) Advanced maternal age ; Translations: [Elderly multigravida, unspecified as to episode of care or not applicable] 09-14-2024 Episodic Other complications of (13 sources) Excessive growth affecting management of mother; Translations: [Maternal care for excessive growth, unspecified trimester, not applicable or unspecified] 03-07-2025 Episodic Comment on above: EFW 3205 at 34 weeks per MFM, QID glucose testing Other complications of (2 sources) Supervision of high risk , unspecified, second trimester; Translations: [Supervision of high risk , unspecified, second trimester] Onset: 03-15-2025 Episodic Other complications of (2 sources) Maternal care for excessive growth, unspecified trimester, not applicable or unspecified; Translations: [Maternal care for excessive growth, unspecified trimester, not applicable or unspecified] Onset: 03-15-2025 Episodic Other complications of (2 sources) Other specified related conditions, unspecified trimester; Translations: [Other specified related conditions, unspecified trimester] Onset: 03-09-2025 Episodic Other complications of (1 source) Supervision of elderly multigravida, third trimester; Translations: [Supervision of elderly multigravida, third trimester] Onset: 03-17-2025 Episodic Other nutritional; endocrine; and metabolic disorders (2 sources) Morbid (severe) obesity due to excess calories; Translations: [Morbid (severe) obesity due to excess calories] Onset: 03-09-2025 Chronic Other and delivery including normal (20 sources) Vaginal delivery; Translations: [Encounter for full-term uncomplicated delivery] Onset: 03-02-2025 04-17-2021 Episodic Comment on above: GP IOL LT 04/14 B oy-Timmy elects NIPT with gen radha, insufficient DNA, [...] conditions (not mental disorders or infectious disease) (17 sources) Abnormal cervical Papanicolaou smear; Translations: [Unspecified abnormal cytological findings in specimens from cervix uteri] Onset: 11-23-2024 12-29-2020 Episodic Comment on above: pap done Polyhydramnios and other problems of amniotic cavity (15 sources) Polyhydramnios; Translations: [Polyhydramnios, unspecified trimester, not applicable or unspecified] Onset: 03-15-2025 03-07-2025 Episodic Comment on above: MIKE 36 at 34 weeks p er MFM. QID glucose testing. twice weekly ANFS-BPP and NST. Consult with MFM ordered. deliver at 37 weeks MIKE 36 at 34 weeks p er MFM. QID glucose testing. twice weekly ANFS-BPP and NST. Consult with MFM ordered. deliver at 37 weeks scheduled for 03/28 @ 7:15 with SM Residual codes; unclassified (16 sources) Family history of cystic fibrosis; Translations: [Family history of other endocrine, nutritional and metabolic diseases] 12-29-2020 Episodic Comment on above: Brendan's 1st cousin Residual codes; unclassified (2 sources) 34 weeks gestation of ; Translations: [34 weeks gestation of ] Onset: 03-15-2025 Episodic Residual codes; unclassified (2 sources) Unspecified blood type, Rh negative; Translations: [Unspecified blood type, Rh negative] Onset: 03-09-2025 Episodic Residual codes; unclassified (1 source) 32 weeks gestation of ; Translations: [32 weeks gestation of ] Onset: 02-22-2025 Episodic Screening and history of mental health [...] multigravida, first trimester] Onset: 10-25-2024 Episodic Other complications of (1 source) Supervision of high risk , unspecified, unspecified trimester; Translations: [Supervision of high risk , unspecified, unspecified trimester] Onset: 09-23-2024 Episodic Residual codes; unclassified (1 source) 22 weeks gestation of ; Translations: [22 weeks gestation of ] Onset: 12-16-2024 Episodic Residual codes; unclassified (1 source) 18 weeks gestation of ; Translations: [18 weeks gestation of ] Onset: 11-17-2024 Episodic Residual codes; unclassified (1 source) 10 weeks gestation of ; Translations: [10 weeks gestation of ] Onset: 09-23-2024 Episodic Results Test Name Value Interpretation Reference Range Facility Progress Noteon 03-16-2025 Landscape Designer Authentication Interface Message Text Comanage Polyhydramnios- concern for GestationalDiabetes Mellitus Demetrius Fernandes is seen at 35w3d for comanagement of polyhydramnios- concern for Gestational Diabetes Mellitus. She denies any complaints today. Her blood glucose record was reviewed, overall well controlled with diet at this time. No need for med management. History of Presenting Problem: She is unaccompanied. Demetrius denies any cramping, contractions, vaginal bleeding, unusual or increase in vaginal discharge, signs and symptoms of pre-eclampsia, or leaking of any fluid. Patient with positive movement. Past Medical History: Past Medical History: Diagnosis Date Obesity Rh negative, antepartum Vaginal Pap smear, abnormal 2008 Normal paps since History reviewed. No pertinent surgical history. Medications: Encounter Medications[1] Allergies: Allergies[2] Family Medical History: Family History Problem Relation Age of Onset Diabetes Mellitus II Paternal Grandfather 60 - 69 Social History: Social History Socioeconomic History Marital status: Spouse name: None Number of children: None Years of education: None Highest education level: None Tobacco Use Smoking status: Former Types: Vaping Smokeless tobacco: Never Substance and Sexual Activity Alcohol use: Not Currently Drug use: Never Physical Exam: Vitals Extended BP: (BP WNL at NST 03/15) Number of Fetuses: 1 Movement: Present Vaginal Bleeding: Absent Cramps / Contractions: Absent Mucous Discharge: Absent Assessment/Plan: Demetrius Fernandes is a 34 y.o. at 35w3d with: Active Non-Hospital Problems Diagnosis Date Noted Polyhydramnios in third trimester 03/16/2025 MFM consult complete Recommendations: 1. Serial growth ultrasounds every 4 weeks. 2. testing 2 x per week. 3. Growth 2 weeks from last growth. 4. 37-week delivery if MIKE continues to be approximately 35 or above. 5. recommended if fetus is 4500 g estimated. 6. Additional follow-up as clinically indicated. 03/16: pt has been pattern testing due to concern for GDM. Glucose log reviewed and overall well controlled. Some random hyperglycemia noted, pt does flip between normal schedule and working third shift which makes timing difficult. No med management needed at this time, pt to continue pattern testing and will review in 1 week. Pt is scheduled for next growth scan 03/21. Delivery scheduled with OB 03/28 (37 weeks) Kick counts reviewed and encouraged Precautions reviewed Follow up comanage visit in 1 week Twice weekly testing- scheduled with MFM 03/17 and 03/21. Plans NST with OB on 03/24 Growth scan planned 03/21 with MFM Delivery scheduled 03/28 with OB. The total time spent on patient care today 03/16/2025 was 30 minutes. -15 minutes direct patient care -15 minutes chart review and documentation [1] Outpatient Encounter Medications as of 03/16/2025 Medication Sig Dispense Refill Ferrous Sulfate (IRON PO) MV-Min-Fe Fum-FA-DHA ( 1 PO) Famotidine (PEPCID) 40 MG tablet 1 Tablet (40 mg) No facility-administered encounter medications on file as of 03/16/2025. [2] No Known Allergies Normal [facility] OB Triage Progress Noteon OB Triage Progress Note [facility] Medical Records Department [address] [place] [address] OB Triage Progress Note 03/15/25 1110 MR#: [id number] Acct: [id number] Name: DEMETRIUS FERNANDES Rep #: [id number] : 1990 34 From: Fiordaliza Zhong MD PCP: Dr. Delmar Luna MD Status:REG CLI Y DOS: Location: [place] [address] Progress Notes Date of Service: 03/15/25 Progress Note: Patient presents for triage evaluation secondary to polyhydramnios FHT: 130-135 Moderate variability reactive no decelerations category I tracing [place]: no regular Contractions Assessment and plan: polyhydramnios 35 weeks Reactive NST, reassuring maternal and status patient discharged to home to follow-up as scheudled. See problem list details for additional plan information. Charges/Coding Procedures Urinary/Genital 52xxx-59xxx: [id number] non-stress test Interp Assessment Plan (1) Polyhydramnios affecting : COMMENT: MIKE 36 at 34 weeks per MFM. QID glucose testing. twice weekly ANFS-BPP and NST. Consult with MFM ordered. deliver at 37 weeks (2) Macrosomia affecting management of mother, antepartum: COMMENT: EFW 3205 at 34 weeks per [facility], QID glucose testing (3) Supervision of high-risk : QUALIFIERS: Trimester: second trimester Qualified Code(s): O09.92 - Supervision of high risk , unspecified, second trimester COMMENT: PRR, , MEET 04/17/25, boy RAEGAN Warner, Froilan (4) Breech presentation: COMMENT: at 34 weeks per M (5) : QUALIFIERS: Weeks of gestation: 34 weeks Qualified Code(s): Z3A.34 - 34 weeks gestation of COMMENT: elects NIPT with gender, insufficient DNA X 2; AFP Neg. Nml anatomy. 03/15/25 1112 Date Fiordaliza Zhong MD Cosigner Signature (if applicable): Date CC: Dr. Delmar Luna MD; Dr. Fiordaliza Zhong MD Signed Normal [facility] Progress Noteon 03-11-2025 Landscape Designer Authentication Interface Message Text [facility] Ultrasound Consult Note Today we discussed the US findings seen on today's Ultrasound: Polyhydramnios previously severe today is moderate. Overall the patient is doing well without physical complaints. Obstetrical History OB History Para Term AB Living 2 1 1 SAB IAB Ectopic Multiple Live Births # Outcome Date GA Lbr [place]/2nd Weight Sex Type Anes PTL Lv 2 Current 1 Term 04/14/21 41w0d 3.685 kg M Vag-Spont Comments: [facility] NIPT not able to be calculated x2. No significant Surgical history Medical history Social history Review of Systems - negative unless otherwise specified above Physical Examination: General appearance - alert, well appearing, and in no distress Mental status - alert, oriented to person, place, and time Chest - No difficulty with breathing Heart - Normal Rate Abdomen - Non tender during US exam Pelvic - Deferred Extremities - no edema noted Please see US report for further detail 1. Intrauterine at 34w 5d in cephalic presentation. 2. Polyhydramnios, MIKE 34.2 cm. 3. Reassuring testing, BPP 02/18. 4. Limited imaging due to gestational age and position however no placental lesion seen. Stomach was well visualized. The lips appear intact, the palate is suspected to be intact. The kidneys and bladder appear normal. There is no evidence of hydrops. Normal spine appearance. No pulmonary lesion. Intracranial anatomy appears to be intact. Recommendations: On today s ultrasound, polyhydramnios was identified. Polyhydramnios is typically defined by an amniotic fluid index > 24 cm or MVP > 8 cm. We then discussed the typical amniotic fluid cycle within the uterus. The leading diagnosis, 70%, for increased fluid in the third trimester is idiopathic (i.e. normal variant). However the differential diagnosis also includes maternal conditions such as diabetes mellitus which is my concern based on the recent growth at 99% AC, hydrops, absence of swallowing which can be secondary to neurologic conditions or GI obstruction such as esophageal atresia or duodenal atresia. We will continue to monitor blood sugars as she only has a few days where the data with follow-up virtual visit in 1 week as well as BPP. We will obtain a growth in 2 weeks to allow for delivery planning and potential recommendation. There is no evidence of any structural abnormalities onultrasound. The patient was counseled regarding the sonographic findings and to the potential for non-visualized malformations. (The amniotic fluid index today is considered Moderate but was Severe and therefore Antepartum surveillance will be twice weekly. We will proceed with 37-week delivery unless substantial decrease in amniotic fluid. All questions answered. [facility] CS#46 recommendations. 1. Serial growth ultrasounds every 4 weeks. 2. testing 2 x per week. 3. Growth 2 weeks from last growth. 4. 37-week delivery if MIKE continues to be approximately 35 or above. 5. recommended if fetus is 4500 g estimated. 6. Additional follow-up as clinically indicated. My final recommendations will be communicated back to the requesting physician by way of shared medical record or fax. Franky Badillo MD The total time spent on patient care today was 60 minutes. -30 minutes direct patient care -30 minutes chart review and documentation Normal [facility] - Chemistry and C hemistry - challengeOrdered By: Aye Mcdowell on 03-09-2025 Glucose Ql (U) Negative [facility] Laboratory - UrinalysisOrder ed By: Aye Mcdowell on 03-09-2025 Protein Ql (U) Negative [facility] OB Triage Physician Noteon 0 03-09-2025 OB Triage Physician Note [facility] Medical Records Department [address] [place] [address] OB Triage Physician Note 03/09/252037 MR#: [id number] Acct: [id number] Name: DEMETRIUS FERNANDES Rep #: [id number] : 1990 34 From: Aye Dey DO PCP: Dr. Delmar Luna MD Status:DEP [facility] Y Location: [facility] HPI - General HPI Narrative DEMETRIUS FERNANDES, is a 34 F who presents to [facility] for an NST at 34 weeks due to severe polyhydramnios and morbid obesity. Her fetus is in the breech presentation. Maternal Data Information MEET Calculator Estimated Delivery Date Method Current WG Current Estimate 04/17/25 LMP (Certain) 34w 3d Other Estimates 04/14/25 Ultrasound #1 34w 6d PFSH PFSH Medical History Asthma Seasonal allergies Tilted uterus Abnormal Pap smear of cervix Home Medications ???Medication ???Instructions ???Recorded ???Last Taken ???Type multivitamin no.47-iron fum 27 1 cap PO DAILY 08/29/20 03/08/25 19:00 History mg-folate no.1 1 mg-dha 300 mg 1 cap capsule (PNV-DHA) famotidine 40 mg tablet (Pepcid) 40 mg PO BID PRN heartburn #30 tab s 01/12/25 03/08/25 19:00 Rx 40 mg alcohol swabs (Alcohol Wipes) 1 pad topical DAILY #100 ea Unknown Rx blood sugar diagnostic (Advanced #100 ea 03/07/25 Unknown Rx Glucose Meter Test Strips) flash glucose scanning reader #1 ea 03/07/25 Unknown Rx (FreeStyle Hardeep 2 [place]) lancets #200 ea 03/07/25 Unknown Rx Allergy/AdvReac Type Severity Reaction Status Date / Time No Known Allergies Allergy Verified 03/09/25 10:26 Family History Grandfather Diabetes Paternal Type 2 Uncle AA (aortic aneurysm) Brain- Maternal Grandmother AA (aortic aneurysm) Paternal Surgical History History of elective History of tonsillectomy Social History adopted: No household members: spouse and children housing: house number of children: 1 current occupational status: employed and unemployed current occupation: [employer] current occupational exposures/hazards: No pets and animals: [...] 1-2 times per week duration: 30-45 minutes/day parul/sabianism: None seatbelt use: always do you feel safe at home: Yes additional social history: - 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 Date Name GA/Weeks Outcome Route Bth Weight Infant Gen Labor Lgth Anesthesia Del [facility] Provider FOB 04/14/21 [place] 41 live - full term 8#2oz Male epidural [facility] GP Froilan Delivery Date: 04/14/21 Last Updated by: Simi Zarate 2nd degree laceration Visit Details Expected Delivery Route/Plan Labor Preferences- CB/BF classes: no labor support person: Brendan labor intervention preferences: [] pain management options preferred: epidural cut cord/dad catch: cord : yes PP control planned: discussed discussed possible routes of delivery and associated risks: [] special requests: [] Plans Covid status: [] Flu vaccine: [] Tdap vaccine: given 01/24/25 Rhogam: given 01/24/25 LARC form signed: yes Problem list reviewed and updated with the most current plan of care details and appropriate orders placed. Relevant counseling for the gestational age provided. Continue routine care and follow up unless otherwise noted in visit notes/problem list details OB Flowsheet Initial Weight: 309 lb Date -???-???-???-???-???-? ??-???-???-???-???-??? -???- EGA Weight BP Urine Prot -???-???-???-???-???-? ??-???-???-???-???-??? -???- Glucose FHR FuHt Pres Dilation -???-???-???-???-???-? ??-???-???-???-???-??? -???- Effaced St Visit Note 09/23/24 -???-???-???-???-???-? ??-???-???-???-???-??? -???- 10w 4d 309 lb 4 oz (+4 oz) 121/67 -???-???-???-???-???-? ??-???-???-???-???-??? -???- 168 -???-???-???-???-???-? ??- (more content not included)... Normal [facility] Mechanical Shovel Operator Office Visit Reporton 03-09-2025 Mechanical Shovel Operator Office Visit Report [facility]'s [address], [address] [place] [address] OFFICE VISIT Date of Service: 03/09/25 MR#: [id number] Acct: [id number] Name: DEMETRIUS FERNANDES Rep #: [id number] : 1990 Provider: Dr. Aye Morel DO Age/Sex: 34/F Location: [facility] [facility] Status: Signed Intake Vital Signs 01/12/25 09:43 02/22/25 10:03 03/09/25 08:54 03/09/25 08:55 Height 5 ft 9 in 5 ft 9 in 5 ft 9 in 5 ft 9 in Weight: 339 lb 6 oz BMI 50.1 BP 136/85 H Intake Visit Reasons: 34 wk ob Steamboat Captain Required: No Is patient in pain?: No Allergies No Known Allergies Allergy (Verified 03/09/25 08:54) Medications ???Medication ???Instructions ???Recorded ???Confirmed ???Type multivitamin no.47-iron fum 27 1 cap PO DAILY 08/29/20 03/09/25 History mg-folate no.1 1 mg-dha 300 mg capsule (PNV-DHA) famotidine 40 mg tablet (Pepcid) 40 mg PO BID PRN heartburn #30 tab s 01/12/25 03/09/25 Rx cyclobenzaprine 10 mg tablet 10 mg PO HS PRN muscle spasm #7 03/09/25 Rx tabs alcohol swabs (Alcohol Wipes) 1 pad topical DAILY #100 ea 03/09/25 Rx blood sugar diagnostic (Advanced #100 ea 03/07/25 03/09/25 Rx Glucose Meter Test Strips) flash glucose scanning reader #1 ea 03/07/25 03/09/25 Rx (FreeStyle Hardeep 2 [place]) lancets #200 ea 03/07/25 03/09/25 Rx Last Menstrual Period: 07/11/24 Zika: Zika [...] occupational status: employed and unemployed 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 Date Name GA/Weeks Outcome Route Bth Weight Infant Gen Labor Lgth Anesthesia Del [facility] Provider FOB 04/14/21 [place] 41 live - full term 8#2oz Male epidural [facility] GP Froilan Delivery Date: 04/14/21 Last Updated by: Simi Zarate 2nd degree laceration HPI 34 wk ob Details: DEMETRIUS FERNANDES is a 34 year old who presents for routine OB visit. OB Visit MEET Calculator Estimated Delivery Date Method Current WG Current Estimate 04/17/25 LMP (Certain) 34w 3d Other Estimates 04/14/25 Ultrasound #1 34w 6d Expected Delivery Route/Plan Labor Preferences- CB/BF classes: no labor support person: Brendan labor intervention preferences: [] pain management options preferred: epidural cut cord/dad catch: cord : yes PP control planned: discussed discussed possible routes of delivery and associated risks: [] special requests: [] Specific Issue/Plans Covid status: [] Flu vaccine: [] Tdap vaccine: given 01/24/25 Rhogam: given 01/24/25 LARC form signed: yes Problem list reviewed and updated with the most current plan of care details and appropriate orders placed. Relevant counseling for the gestational age provided. Continue routine care and follow up unless otherwise noted in visit notes/problem list details Initial Weight: 309 lb Date -???-???-???-???-???-? ??-???-???-???-???-??? -???- EGA Weight BP Urine Prot -???-???-???-???-???-? ??-???-???-???-???-??? -???- Gluc (more content not included)... 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 Reporton 02-22-2025 Mechanical Shovel Operator Office Visit Report [facility] [address], [address] [place] [address] OFFICE VISIT Date of Service: 02/22/25 MR#: [id number] Acct: [id number] Name: DEMETRIUS FERNANDES Rep #: [id number] : 1990 Provider: ZACHARY Way ams Age/Sex: 34/F Location: [facility] Status: Signed Intake Vital Signs 01/12/25 09:43 02/07/25 09:25 02/22/25 10:03 Height 5 ft 9 in 5 ft 9 in 5 ft 9 in Weight: 338 lb 1 oz BMI 49.9 BP 132/76 H Intake Visit Reasons: 32 wk ob Chief Complaint: 32 wk OB Steamboat Captain Required: No Is patient in pain?: No Allergies No Known Allergies Allergy (Verified 02/22/25 10:00) Medications ???Medication ???Instructions ???Recorded ???Confirmed ???Type multivitamin no.47-iron fum 27 1 cap PO DAILY 08/29/20 02/22/25 History mg-folate no.1 1 mg-dha 300 mg capsule (PNV-DHA) famotidine 40 mg tablet (Pepcid) 40 mg PO BID PRN heartburn #30 tab s 01/12/25 02/22/25 Rx cyclobenzaprine 10 mg tablet 10 mg PO HS PRN muscle spasm #7 02/22/25 Rx tabs Last Menstrual Period: 07/11/24 : No Have you fallen in the past year?: No PFSH PFSH Medical History Asthma Seasonal [...] occupational status: employed and unemployed current occupation: [employer] current occupational exposures/hazards: No pets and animals: [...] 1-2 times per week duration: 30-45 minutes/day parul/sabianism: None seatbelt use: always do you feel safe at home: Yes additional social history: - 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 Date Name GA/Weeks Outcome Route Bth Weight Gen Labor Lgth Anesthesia Del Locatn Provider FOB 04/14/21 [place] 41 live - full term 8#2oz Male epidural [facility] GP Froilan Delivery Date: 04/14/21 Last Updated by: Simi Zarate 2nd degree laceration HPI 32 wk ob Details: DEMETRIUS FERNANDES is a 34 year old who presents for routine OB visit. OB Visit MEET Calculator Estimated Delivery Date Method Current WG Current Estimate 04/17/25 LMP (Certain) 32w 2d Other Estimates 04/14/25 Ultrasound #1 32w 5d Expected Delivery Route/Plan Labor Preferences- CB/BF classes: no labor support person: Brendan labor intervention preferences: [] pain management options preferred: epidural cut cord/dad catch: cord : yes PP control planned: discussed discussed possible routes of delivery and associated risks: [] special requests: [] Specific Issue/Plans Covid status: [] Flu vaccine: [] Tdap vaccine: given 01/24/25 Rhogam: given 01/24/25 LARC form signed: yes Problem list reviewed and updated with the most current plan of care details and appropriate orders placed. Relevant counseling for the gestational age provided. Continue routine care and follow up unless otherwise noted in visit notes/problem list details Initial Weight: 309 lb Date -???-???-???-???-???-? ??-???-???-???-???-??? -???- EGA Weight BP Urine Prot -???-???-???-???-???-? ??-???-???-???-???-??? -???- Glucose FHR FuHt Pres Dilation -???-???-???-???-???-? ??-???-???-???-???-??? -???- Effaced St Visit Note 09/23/24 -???-???-???-???-???-? ??-???-???-???-???-??? -???- 10w 4d 309 lb 4 oz (+4 oz) 121/67 -???-???-???-???-???-? ??-???-???-???-???-??? -???- 168 -???-???-???-???-???-? ??-???-???-???-???-??? -???- KW- CRL cons with (more content not included)... 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 Aye Morel DO Age/Sex: 34/F Location: [facility] [place] [facility] Status: Signed Intake Vital Signs 12/16/24 09:30 01/24/25 08:40 02/07/25 09:25 02/07/25 09:25 Height 5 ft 9 in 5 ft 9 in 5 ft 9 in 5 ft 9 in Weight: 332 lb BMI 49.0 BP 107/71 Intake Visit Reasons: 30wk ob Steamboat Captain Required: No Is patient in pain?: No Allergies No Known Allergies Allergy (Verified 02/07/25 09:25) Medications ???Medication ???Instructions ???Recorded ???Confirmed ???Type multivitamin no.47-iron fum 27 1 cap PO DAILY 08/29/20 02/07/25 History mg-folate no.1 1 mg-dha 300 mg capsule (PNV-DHA) famotidine 40 mg tablet (Pepcid) 40 mg PO BID PRN heartburn #30 tab s 01/12/25 02/07/25 Rx cyclobenzaprine 10 mg tablet 10 mg PO HS PRN muscle spasm #7 02/07/25 Rx tabs Last Menstrual Period: 07/11/24 Zika: Zika virus [...] occupational status: employed and unemployed current occupation: [employer] current occupational exposures/hazards: No pets and animals: [...] 1-2 times per week duration: 30-45 minutes/day parul/sabianism: None seatbelt use: always do you feel safe at home: Yes additional social history: - 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 Date Name GA/Weeks Outcome Route Bth Weight Infant Gen Labor Lgth Anesthesia Del [facility] Provider FOB 04/14/21 [place] 41 live - full term 8#2oz Male epidural [facility] GP Froilan Delivery Date: 04/14/21 Last Updated by: Simi Zarate 2nd degree laceration HPI 30wk ob Details: DEMETRIUS FERNANDES is a 34 year old who presents for routine OB visit. OB Visit MEET Calculator Estimated Delivery Date Method Current WG Current Estimate 04/17/25 LMP (Certain) 30w 1d Other Estimates 04/14/25 Ultrasound #1 30w 4d Expected Delivery Route/Plan Labor Preferences- CB/BF classes: no labor support person: Brendan labor intervention preferences: [] pain management options preferred: epidural cut cord/dad catch: cord : yes PP control planned: discussed discussed possible routes of delivery and associated risks: [] special requests: [] Specific Issue/Plans Covid status: [] Flu vaccine: [] Tdap vaccine: given 01/24/25 Rhogam: given 01/24/25 LARC form signed: yes Problem list reviewed and updated with the most current plan of care details and appropriate orders placed. Relevant counseling for the gestational age provided. Continue routine care and follow up unless otherwise noted in visit notes/problem list details Initial Weight: 309 lb Date -???-???-???-???-???-? ??-???-???-???-???-??? -???- EGA Weight BP Urine Prot -???-???-???-???-???-? ??-???-???-???-???-??? -???- Glucose FHR FuHt Pres Dilation -???-???-???-???-???-? ??-???-???-???-???-??? -???- Effaced St Visit Note 09/23/24 -???-???-???-???-???-? ??-???-???-???-???-??? -???- 10w 4d 309 lb 4 oz (+4 oz) 121/67 -???-???-???-???-???-? ??-???-???-???-???-??? -???- 168 -???-???-???-???-???-? ??-???-???-???-???-??? -???- K (more content not included)... Normal [facility] Gestational GTT 3HR 100gon 0 01-25-2025 GEST GTT 100gm Normal [facility] Comment on above: Order Comment: Y Result Comment: FAST ING 91 Col: 01/25/25 0649 GLUCOSE TOLERANCE TEST FOR Reference Interval GESTATIONAL DIABETES Fasting <105 mg/dL 1 hour <190 mg/dl 2 hour <165 mg/dl 3 hour <145 mg/dl 1 HR GLU 151 Col: 01/25/25 0829 2 HR GLU 126 Col: 01/25/25 0926 3 HR GLU 117 Col: 01/25/25 1025 Performed By: #### L 501.0250, L509.8002, L3890.6006, BTS, L100.0100 #### [facility] [address] [place], [place], [address] Quantitative serum or plasma 3 hour gestational glucose tolerance panelOrdered By: Erick Rodriguez on 01-25-2025 Glucose tolerance 3 hours gestational panel See comment [facility] Comment on above: FASTING 91 Col: 0712/05 0649GLUCOSE TOLERANCE TEST FOR Reference Interval GESTATIONAL DIABETES Fasting <105 mg/dL 1 hour <190 mg/dl 2 hour <165 mg/dl 3 hour <145 mg/dl 1 HR GLU 151 Col: 01/25/25 0829 2 HR GLU 126 Col: 01/25/25 0926 3 HR GLU 117 Col: 01/25/25 1025 Absolute lymphocyte countOrd ered By: Erick Rodriguez on 01-24-2025 Lymphocytes Auto (Unsp spec) [#/Vol] 2.28 10*3/uL 0.83-4.51 [facility] Absolute neutrophil countOrd ered By: Erick Rodriguez on 01-24-2025 Neutrophils (Bld) [#/Vol] 10.3 10*3/uL High 2.0-7.7 [facility] Automated lymphocyte count a s percentage of total leukocytesOrdered By: Erick Rodriguez on 01-24-2025 Lymphocytes/100 WBC Auto (Unsp spec) 16.6 % Low 19-41 [facility] Basophil percentageOrdered B y: Erick Rodriguez on 01-24-2025 Basophils/100 WBC (Bld) 0.3 % 0-[address] [facility] CBC W/Diff, Automatedon 01-11 Absolute Lymph 2.28 X10 3/uL Normal 0.83-4.51 [facility] Comment on above: Performed By: #### L 501.0250, L509.8002, L3890.6006, BTS, L100.0100 #### [facility] [address] [place], [address] Absolute Neut 10.3 X10 3/uL High 2.0-7.7 [facility] Comment on above: Performed By: #### L 501.0250, L509.8002, L3890.6006, BTS, L100.0100 #### [facility] [address] [place], [address] Basophils/100 WBC (Bld) 0.3 % Normal 0-[address] [facility] Comment on above: Performed By: #### L 501.0250, L509.8002, L3890.6006, BTS, L100.0100 #### [facility] [address] [place], [address] Eosinophils/100 WBC (Bld) 0.9 % Normal 0-5 [facility] Comment on above: Performed By: #### L 501.0250, L509.8002, L3890.6006, BTS, L100.0100 #### [facility] [address] [place], [address] Erythrocyte distribution width (RBC) [Ratio] 15.7 % High 11.6-14.6 [facility] Comment on above: Performed By: #### L 501.0250, L509.8002, L3890.6006, BTS, L100.0100 #### [facility] [address] [place], [address] Hematocrit (Bld) [Volume fraction] 33.4 % Low 37-47 [facility] Comment on above: Performed By: #### L 501.0250, L509.8002, L3890.6006, BTS, L100.0100 #### [facility] [address] [place], [address] Hemoglobin (Bld) [Mass/Vol] 10.6 g/dL Low 12.0-15.0 [facility] Comment on above: Performed By: #### L 501.0250, L509.8002, L3890.6006, BTS, L100.0100 #### [facility] [address] [place], [address] IG% 0.700 Normal 0.0-0.9 [facility] Comment on above: Result Comment: IG% - Immature Granulocytes (promyelocytes, myelocytes and metamyelocytes) > 1% indicates that a LEFT SHIFT is Present. Performed By: #### L 501.0250, L509.8002, L3890.6006, BTS, L100.0100 #### [facility] [address] [place], [address] Lymphocytes/100 WBC (Bld) 16.6 % Low 19-41 [facility] Comment on above: Performed By: #### L 501.0250, L509.8002, L3890.6006, BTS, L100.0100 #### [facility] [address] [place], [address] MCH (RBC) [Entitic mass] 27.1 pg Normal 27.0-32.0 [facility] Comment on above: Performed By: #### L 501.0250, L509.8002, L3890.6006, BTS, L100.0100 #### [facility] [address] [place], [address] MCHC (RBC) [Mass/Vol] 31.7 g/dL Low 32-36 [facility] Comment on above: Performed By: #### L 501.0250, L509.8002, L3890.6006, BTS, L100.0100 #### [facility] [address] [place], [address] MCV (RBC) [Entitic vol] 85.4 fL Normal 81-99 [facility] Comment on above: Performed By: #### L 501.0250, L509.8002, L3890.6006, BTS, L100.0100 #### [facility] [address] [place], [address] Monocytes/100 WBC (Bld) 6.5 % Normal 0-10 [facility] Comment on above: Performed By: #### L 501.0250, L509.8002, L3890.6006, BTS, L100.0100 #### [facility] [address] [place], [address] Neutrophils/100 WBC (Bld) 75.0 % High 47-70 [facility] Comment on above: Performed By: #### L 501.0250, L509.8002, L3890.6006, BTS, L100.0100 #### [facility] [address] [place], [address] Nucleated RBC (Bld) [#/Vol] 0 10*3/uL Normal 0-5 [facility] Comment on above: Performed By: #### L 501.0250, L509.8002, L3890.6006, BTS, L100.0100 #### [facility] [address] [place], [address] Platelet mean volume (Bld) [Entitic vol] 10.7 fL Normal 6.2-12.0 [facility] Comment on above: Performed By: #### L 501.0250, L509.8002, L3890.6006, BTS, L100.0100 #### [facility] [address] [place], [address] Platelets (Bld) [#/Vol] 262 10*3/uL Normal 150-450 [facility] Comment on above: Performed By: #### L 501.0250, L509.8002, L3890.6006, BTS, L100.0100 #### [facility] [address] [place], [address] RBC (Bld) [#/Vol] 3.91 10*6/uL Low 4.2-5.4 [facility] Comment on above: Performed By: #### L 501.0250, L509.8002, L3890.6006, BTS, L100.0100 #### [facility] [address] [place], [address] RDW SD 48.2 fl High 35.1-43.9 [facility] Comment on above: Performed By: #### L 501.0250, L509.8002, L3890.6006, BTS, L100.0100 #### [facility] [address] [place], [address] WBC (Bld) [#/Vol] 13.8 10*3/uL High 4.4-11.0 [facility] Comment on above: Performed By: #### L 501.0250, L509.8002, L3890.6006, BTS, L100.0100 #### [facility] [address] [place], [address] Eosinophil percentageOrdered By: Erick Rodriguez on 01-24-2025 Eosinophils/100 WBC (Bld) 0.9 % 0-5 [facility] Erythrocyte distribution wid th ratioOrdered By: Erick Rodriguez on 01-24-2025 Erythrocyte distribution width (RBC) [Ratio] 15.7 % High 11.6-14.6 [facility] Erythrocyte distribution wid th standard deviationOrdered By: Erick Rodriguez on 01-24-2025 Erythrocyte distribution width (RBC) [Ratio] 48.2 fl High 35.1-43.9 [facility] Glucose Challenge Gest 1H 50 ender 01-24-2025 GLU GEST 50g 1H 150 mg/dL High 70-140 [facility] Comment on above: Performed By: #### L 501.0250, L509.8002, L3890.6006, BTS, L100.0100 #### [facility] [address] [place], [place], [id number] Glucose measurement at 2 lauro rs post-dose gestational glucose tolerance testOrdered By: Erick Rodriguez on 01-24-2025 Glucose [Mass/Vol] 150 mg/dL High 70-140 [facility] HIVon 01-24-2025 HIV Non-Reactive Normal Nonreactive [facility] Comment on above: Result Comment: Non- Reactive Reactive Repeatedly reactive samples must be confirmed according to CDC recommended confirmatory algorithms. The subresults for either HIVAG or AHIV can be used as an aid in the selection of the confirmation algorithm for reactive samples. Send out specimens with Reactive results to [facility] for confirmation. Order the HIV antibody detection and differentiation: #[id number] Performed By: #### L 501.0250, L509.8002, L3890.6006, BTS, L100.0100 #### [facility] [address] [place], [place], [id number] Hematocrit Auto (Bld) [Volum e fraction]Ordered By: Erick Rodriguez on 01-24-2025 Hematocrit (Bld) [Volume fraction] 33.4 % Low 37-47 [facility] Hemoglobin measurementOrdere d By: Erick Rodriguez on 01-24-2025 Hemoglobin (Bld) [Mass/Vol] 10.6 g/dL Low 12.0-15.0 [facility] Immature granulocytes/100 WB C Auto (Bld)Ordered By: Erick Rodriguez on 01-24-2025 Immature granulocytes/100 WBC (Bld) 0.700 % 0.0-0.9 [facility] Comment on above: IG% - Immature Granu locytes (promyelocytes, myelocytes and metamyelocytes) > 1% indicates that a LEFT SHIFT is Present. Laboratory - Chemistry and C hemistry - challengeOrdered By: Erick Rodriguez on 01-24-2025 Glucose Ql (U) Negative [facility] - UrinalysisOrder ed By: Erick Rodriguez on 01-24-2025 Protein Ql (U) Negative [facility] MCV (mean corpuscular volume ) determinationOrdered By: Erick Rodriguez on 01-24-2025 MCV (RBC) [Entitic vol] 85.4 fL 81-[address] [facility] Mean corpuscular hemoglobin (MCH) determinationOrdered By: Erick Rodriguez on 01-24-2025 MCH (RBC) [Entitic mass] 27.1 pg 27.0-32.0 [facility] Mean corpuscular hemoglobin concentration (MCHC) determinationOrdered By: Erick Rodriguez on 01-24-2025 MCHC (RBC) [Mass/Vol] 31.7 g/dL Low 32-36 [facility] Mean platelet volume determi nationOrdered By: Erick Rodriguez on 01-24-2025 Platelet mean volume (Bld) [Entitic vol] 10.7 fL 6.2-12.0 [facility] Monocyte percentageOrdered B y: Erick Rodriguez on 01-24-2025 Monocytes/100 WBC (Bld) 6.5 % 0-[address] [facility] Neutrophil percentageOrdered By: Erick Rodriguez on 01-24-2025 Neutrophils/100 WBC (Bld) 75.0 % High 47-70 [facility] No Panel InformationOrdered By: Erick Rodriguez on 01-24-2025 HIV (1&2) Antibody Non-Reactive Nonreactive [facility] Comment on above: Non-ReactiveReactive Repeatedly reactive samples must be confirmed according to CDC recommended confirmatory algorithms. 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 [facility]'s [address], [address] [place] [address] OFFICE VISIT Date of Service: 01/24/25 MR#: [id number] Acct: [id number] Name: DEMETRIUS FERNANDES Rep #: [id number] : 1990 Provider: MARY JANE godoy Age/Sex: 34/F Location: [facility] Status: Signed Intake Vital Signs 12/16/24 09:30 01/12/25 09:43 01/24/25 08:30 01/24/25 08:40 Height 5 ft 9 in 5 ft 9 in 5 ft 9 in 5 ft 9 in Weight: 331 lb 2 oz BMI 48.9 BP 124/72 H Intake Visit Reasons: 28wk ob/glucose/rhogam Chief Complaint: 28 Week OB/Rhogam [place] [employer] Required: No Is patient in pain?: No Allergies No Known Allergies Allergy (Verified 01/24/25 08:29) Medications ???Medication ???Instructions ???Recorded ???Confirmed ???Type multivitamin no.47-iron fum 27 1 cap PO DAILY 08/29/20 01/24/25 History mg-folate no.1 1 mg-dha 300 mg capsule (PNV-DHA) famotidine 40 mg tablet (Pepcid) 40 mg PO BID PRN heartburn #30 tab s 01/12/25 01/24/25 Rx Last Menstrual Period: 07/11/24 Zika: Zika virus screening: Negative : Yes PFSH PFSH Medical History Asthma [...] occupational status: employed and unemployed current occupation: [employer] current occupational exposures/hazards: No pets and animals: [...] 1-2 times per week duration: 30-45 minutes/day parul/sabianism: None seatbelt use: always do you feel safe at home: Yes additional social history: - 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 Date Name GA/Weeks Outcome Route Bth Weight Infant Gen Labor Lgth Anesthesia Del Locatn Provider FOB 04/14/21 [place] 41 live - full term 8#2oz Male epidural [facility] GP Froilan Delivery Date: 04/14/21 Last Updated by: Simi Zarate 2nd degree laceration HPI 28wk ob/glucose/rhogam Details: DEMETRIUS FERNANDES is a 34 year old who presents for routine OB visit. OB Visit MEET Calculator Estimated Delivery Date Method Current WG Current Estimate 04/17/25 LMP (Certain) 28w 1d Other Estimates 04/14/25 Ultrasound #1 28w 4d Expected Delivery Route/Plan Labor Preferences- CB/BF classes: no labor support person: Brendan labor intervention preferences: [] pain management options preferred: epidural cut cord/dad catch: cord : yes PP control planned: discussed discussed possible routes of delivery and associated risks: [] special requests: [] Specific Issue/Plans Covid status: [] Flu vaccine: [] Tdap vaccine: given 01/24/25 Rhogam: given 01/24/25 LARC form signed: yes Problem list reviewed and updated with the most current plan of care details and appropriate orders placed. Relevant counseling for the gestational age provided. Continue routine care and follow up unless otherwise noted in visit notes/problem list details Initial Weight: 309 lb Date -???-???-???-???-???-? ??-???-???-???-???-??? -???- EGA Weight BP Urine Prot -???-???-???-???-???-? ??-???-???-???-???-??? -???- Glucose FHR FuHt Pres Dilation -???-???-???-???-???-? ??-???-???-???-???-??? -???- Effaced St Visit Note 09/23/24 -???-???-???-???-???-? ??-???-???-???-???-??? -???- 10w 4d 309 lb 4 oz (+4 oz) 121/67 -???-???-???-???-???-? ??-???-???-???-???-??? -???- 168 -???-???-???-???-???-? ??-???-???-???-???-??? -???- KW- CRL cons with dates. ac (more content not included)... Normal [facility] Platelet countOrdered By: Mo lly Kearney on 01-24-2025 Platelets (Bld) [#/Vol] 262 10*3/uL 150-450 [facility] RBC Auto (Bld) [#/Vol]Ordere d By: Erick Rodriguez on 01-24-2025 RBC (Bld) [#/Vol] 3.91 10*6/uL Low 4.2-5.4 [facility] Syphilis Antibodieson 2024 Syphilis Abs Non-Reactive Normal Nonreactive [facility] Comment on above: Performed By: #### L 501.0250, L509.8002, L3890.6006, BTS, L100.0100 #### [facility] [address] [place], [place], [address] Type AND Screenon 01-24-2025 ABO and Rh group Nom (Bld) Blood group O Rh(D) negative Normal [facility] Comment on above: Order Comment: PN Performed By: #### L 501.0250, L509.8002, L3890.6006, BTS, L100.0100 #### [facility] [address] [place], [place], [id number] White blood cell (WBC) count Ordered By: Erick Rodriguez on 01-24-2025 WBC (Bld) [#/Vol] 13.8 10*3/uL High 4.4-11.0 [facility] Laboratory - Chemistry and C hemistry - challengeOrdered By: Erick Rodriguez on 01-12-2025 Glucose Ql (U) Negative [facility] Laboratory - UrinalysisOrder ed By: Erick Rodriguez on 01-12-2025 Protein Ql (U) Negative [facility] Mechanical Shovel Operator Office Visit Reporton 01-12-2025 Mechanical Shovel Operator Office Visit Report [address], [address] [place] [address] OFFICE VISIT Date of Service: 01/12/25 MR#: [id number] Acct: [id number] Name: DEMETRIUS FERNANDES Alicia Rep #: [id number] : 1990 Provider: MARY JANE godoy Age/Sex: 34/F Location: [facility] Status: Signed Intake Vital Signs 11/17/24 08:40 12/16/24 09:30 01/12/25 09:43 Height 5 ft 9 in 5 ft 9 in 5 ft 9 in Weight: 328 lb 8 oz BMI 48.4 BP 130/82 H Intake Visit Reasons: 26 wk ob Chief Complaint: 26 Week OB Steamboat Captain Required: No Is patient in pain?: No [...] Zika: Zika virus screening: Negative : Yes PFSH PFSH Medical History Asthma [...] occupational status: employed and unemployed current occupation: [employer] current occupational exposures/hazards: No pets [...] 1-2 times per week duration: 30-45 minutes/day parul/sabianism: None seatbelt use: always do you feel safe at home: Yes additional social history: - [employer] @ 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 Date Name GA/Weeks Outcome Route Bth Weight Infant Gen Labor Lgth Anesthesia Del Locatn Provider FOB 04/14/21 Timmy 41 live - full term 8#2oz Male epidural [facility] GP Froil[employer] Delivery Date: 04/14/21 Last Updated [...] list details Initial Weight: 309 lb Date -???-???-???-???-???-? ??-???-???-???-???-??? -???- EGA Weight BP Urine Prot -???-???-???-???-???-? ??-???-???-???-???-??? -???- Glucose FHR FuHt Pres Dilation -???-???-???-???-???-? ??-???-???-???-???-??? -???- Effaced St Visit Note 09/23/24 -???-???-???-???-???-? ??-???-???-???-???-??? -???- 10w 4d 309 lb 4 oz (+4 oz) 121/67 -???-???-???-???-???-? ??-???-???-???-???-??? -???- 168 -???-???-???-???-???-? ??-???-???-???-???-??? -???- KW- CRL cons with dates. accepts NIPT-very concerned about weight with this KW- CRL cons with dates (more content not included)... Normal [facility] Laboratory - Chemistry and C hemistry - challengeOrdered By: Fiordaliza Zhong on 12-16-2024 Glucose Ql (U) Negative [facility] - UrinalysisOrder ed By: Fiordaliza Zhong on 12-16-2024 Protein Ql (U) Negative [facility] Mechanical Shovel Operator Office Visit Reporton 12-16-2024 Mechanical Shovel Operator Office Visit Report [facility] [address] [place] [address], [address] [place] [address] OFFICE VISIT Date of Service: 12/16/24 MR#: [id number] Acct: [id number] Name: DEMETRIUS FERNANDES Rep #: [id number] : 1990 Provider: Dr. Fiordaliza leong MD Age/Sex: 34/F Location: [facility] Status: Signed Intake Vital Signs 09/23/24 09:08 [...] occupational status: employed and unemployed current occupation: [employer] current occupational exposures/hazards: No pets [...] 1-2 times per week duration: 30-45 minutes/day parul/sabianism: None seatbelt use: always do you feel safe at home: Yes additional social history: - [employer] @ 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 Date Name GA/Weeks Outcome Route Bth Weight Gen Labor Lgth Anesthesia Del Locatn Provider FOB 04/14/21 Timmy 41 live - full term 8#2oz Male epidural [facility] GP [place]il[place] Delivery Date: 04/14/21 Last Updated [...] list details Initial Weight: 309 lb Date -???-???-???-???-???-? ??-???-???-???-???-??? -???- EGA Weight BP Urine Prot -???-???-???-???-???-? ??-???-???-???-???-??? -???- Glucose FHR FuHt Pres Dilation -???-???-???-???-???-? ??-???-???-???-???-??? -???- Effaced St Visit Note 09/23/24 -???-???-???-???-???-? ??-???-???-???-???-??? -???- 10w 4d 309 lb 4 oz (+4 oz) 121/67 -???-???-???-???-???-? ??-???-???-???-???-??? -???- 168 -???-???-???-???-???-? ??-???-???-???-???-??? -???- KW- CRL cons with dates. accepts NIPT-very concerned about weight with this KW- CRL cons with dates. accepts N IPT-very concerned about weight with this . (more content not included)... Normal [facility] L3410.9992on 11-23-2024 [facility] Misc. COMMENT Normal . [facility] Comment on above: Order Comment: Speci men Comment: SEE END OF THIS REPORT FORCORRECTED REPORT COMMENTS [id number] SERUM RT Result Comment: Test Ordered: [id number] AFP, Serum, Open Spina Bifida Results Comment TG Reference Range: . The MOM and risk factors of this report have been modified based on new information supplied to us by the client or their designated telephone claims representative. The Weight was changed from Not [...] Customer Services to discuss available options. The [employer] recommends amniocentesis [...] TG Reference Range: . Candice Simmons, Ph.D., [facility] Director References: Available Upon Request. Multiples Of Median Cutoffs For AFP Elevations Worrell 2.5 Black 2.8 IDD 2.0 Twins 4.5 Abbreviation Definitions IDD - Insulin Dep Diabetes OSBR - Open Spina Bifida Risk For further inquiries contact [facility] at [phone]. This test was developed and its performance characteristics determined by [facility]. It has not been cleared or approved by the Food and Drug Administration. Performed at: [facility] [address] [place], [place] [id number] Assurance Senior: Cara Lanza [facility], Phone: [phone] Performed at: [address] [id number] Assurance Senior: Jake Ferreira PhD, Phone: [phone] AMENDED REPORT 11/23/24 [address] previously reported as: COMMENT Test Ordered: [id number] AFP, Serum, Open Spina Bifida Results Report [...] TG Reference Range: . Candice Simmons, Ph.D., [facility] Director References: Available Upon Request. Multiples Of Median Cutoffs For AFP Elevations Worrell 2.5 Black 2.8 IDD 2.0 Twins 4.5 Abbreviation Definitions IDD - Insulin Dep Diabetes OSBR - Open Spina Bifida Risk For further inquiries contact [facility] at [phone]. This test was developed and its performance characteristics determined by [facility]. It has not been cleared or approved by the Food and Drug Administration. Performed at: - [facility] [address] [facility], [place], [place] [id number] Assurance Senior: Cara Lanza [facility], Phone: [phone] Performed at (more content not included)... Performed By: #### L 501.0250, L509.8002, L3890.6006, BTS, L100.0100 #### [facility] [address] [place], [address] Laboratory - Chemistry and C hemistry - challengeOrdered By: Erick Rodriguez on 11-17-2024 Glucose Ql (U) Negative [facility] Laboratory - UrinalysisOrder ed By: Erick Rodriguez on 11-17-2024 Protein Ql (U) Negative [facility] Mechanical Shovel Operator Office Visit Reporton 11-17-2024 Mechanical Shovel Operator Office Visit Report [facility] [address], [address] [place] [address] OFFICE VISIT Date of Service: 11/17/24 MR#: [id number] Acct: [id number] Name: DEMETRIUS FERNANDES Rep #: [id number] : 1990 Provider: MARY JANE godoy Age/Sex: 34/F Location: [facility] Status: Signed Intake Vital Signs 09/23/24 09:08 10/22/24 10:18 11/17/24 08:40 Height 5 ft 9 in 5 ft 9 in 5 ft 9 in Weight: 317 lb 8 oz BMI 46.8 BP 126/80 H Intake Visit Reasons: 18wk ob Chief Complaint: 18 Week OB Steamboat Captain Required: No Is patient in pain?: No [...] occupational status: employed and unemployed current occupation: [employer] current occupational exposures/hazards: No pets [...] 1-2 times per week duration: 30-45 minutes/day parul/sabianism: None seatbelt use: always do you feel safe at home: Yes additional social history: - [employer] IND[employer] 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 Date Name GA/Weeks Outcome Route Bth Weight [facility] F[facility] 04/14/21 Timmy 41 live - full term 8#2oz Male epidural [facility] GP Froilan Delivery Date: 04/14/21 Last Updated [...] list details Initial Weight: 309 lb Date -???-???-???-???-???-? ??-???-???-???-???-??? -???- EGA Weight BP Urine Prot -???-???-???-???-???-? ??-???-???-???-???-??? -???- Glucose FHR FuHt Pres Dilation -???-???-???-???-???-? ??-???-???-???-???-??? -???- Effaced St Visit Note 09/23/24 -???-???-???-???-???-? ??-???-???-???-???-??? -???- 10w 4d 309 lb 4 oz (+4 oz) 121/67 -???-???-???-???-???-? ??-???-???-???-???-??? -???- 168 -???-???-???-???-???-? ??-???-???-???-???-??? -???- KW- CRL cons with dates. accepts NIPT-very concerned (more content not included)... Normal [facility] Laboratory - Chemistry and C hemistry - challengeOrdered By: Aye Mcdowell on 10-22-2024 Glucose Ql (U) Negative [facility] Laboratory - UrinalysisOrder ed By: Aye Mcdowell on 10-22-2024 Protein Ql (U) Negative [facility] Mechanical Shovel Operator Office Visit Reporton 10-22-2024 Mechanical Shovel Operator Office Visit Report [facility] [address], [address] [place] [address] OFFICE VISIT Date of Service: 10/22/24 MR#: [id number] Acct: [id number] Name: DEMETRIUS FERNANDES Rep #: [id number] : 1990 Provider: Dr. Aye Morel, Age/Sex: 34/F Location: [facility] Status: Signed Intake Vital Signs 04/13/21 20:08 09/23/24 09:08 10/22/24 10:18 10/22/24 10:18 Height 5 ft 9 in 5 ft 9 in 5 ft 9 in 5 ft 9 in Weight: 312 lb 2 oz BMI 46.0 BP 119/76 Intake Visit Reasons: 14wk OB Steamboat Captain Required: No Is patient in pain?: No [...] occupational status: employed and unemployed current occupation: [employer] current occupational exposures/hazards: No pets and [...] 1-2 times per week duration: 30-45 minutes/day parul/sabianism: None seatbelt use: always do you feel safe at home: Yes additional social history: - [employer] 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 Date Name GA/Weeks Outcome Route Bth Weight Infant Gen Labor Lgth Anesthesia Del [facility] Provider FOB 04/14/21 Timmy 41 live - full term 8#2oz Male epidural [facility] GP Froilan Delivery Date: 04/14/21 Last Updated [...] list details Initial Weight: 309 lb Date -???-???-???-???-???-? ??-???-???-???-???-??? -???- EGA Weight BP Urine Prot -???-???-???-???-???-? ??-???-???-???-???-??? -???- Glucose FHR FuHt Pres Dilation -???-???-???-???-???-? ??-???-???-???-???-??? -???- Effaced St Visit Note 09/23/24 -???-???-???-???-???-? ??-???-???-???-???-??? -???- 10w 4d 309 lb 4 oz (+4 oz) 121/67 -???-???-???-???-???-? ??-???-???-???-???-??? -???- 168 -???-???-???-???-???-? ??-???-???-???-???-??? -???- KW- CRL cons with dates. accepts NIPT-very concerned (more content not included)... Normal [facility] Miscellaneous procedureOrder ed By: Aye Mcdowell on 10-04-2024 Miscellaneous Test Comment SEE SCANNED REPORT [facility] NATREESEon 10-04-2024 TASIA SEE SCANNED REPORT Normal [facility] Comment on above: Performed By: #### L 501.0250, L509.8002, L3890.6006, BTS, L100.0100 #### [facility] [address] [place], [address] PAP IG HPV APTIMA 16/18,45on 09-28-2024 ADEQ Comment Normal . [facility] Comment on above: Order Comment: Speci men Comment: [id number] Comment: Source.............Cervix;EndocervixSpecimen Comment: LMP / Prev Treat...[id number] Comment: Other..............Specimen Comment: No. of containers..01 ThinPrep Vial Result Comment: Sati sfactory for evaluation. No endocervical component is identified. An endocervical component is not commonly seen in the patient. Performed By: #### L 501.0250, L509.8002, L3890.6006, BTS, L100.0100 #### [facility] [address] [place], [address] COMM . Normal . [facility] Comment on above: Order Comment: Speci men Comment: [id number] Comment: Source.............Cervix;EndocervixSpecimen Comment: LMP / Prev Treat...[id number] Comment: Other..............Specimen Comment: No. of containers..01 ThinPrep Vial Performed By: #### L 501.0250, L509.8002, L3890.6006, BTS, L100.0100 #### [facility] [address] [place], [address] COMMENT Comment Normal . [facility] Comment on above: Order Comment: Speci men Comment: [id number] Comment: Source.............Cervix;EndocervixSpecimen Comment: LMP / Prev Treat...[id number] Comment: Other..............Specimen Comment: No. of containers..01 ThinPrep Vial Result Comment: This liquid based ThinPrep(R) pap test was screened with the use of an image guided system. Performed By: #### L 501.0250, L509.8002, L3890.6006, BTS, L100.0100 #### [facility] [address] [place], [place], [id number] DIAG Comment Normal . [facility] Comment on above: Order Comment: Speci men Comment: [id number] Comment: Source.............Cervix;EndocervixSpecimen Comment: LMP / Prev Treat...[id number] Comment: Other..............Specimen Comment: No. of containers..01 ThinPrep Vial Result Comment: NEGA TIVE FOR INTRAEPITHELIAL LESION OR MALIGNANCY. Performed By: #### L 501.0250, L509.8002, L3890.6006, BTS, L100.0100 #### [facility] [address] [place], [place], [id number] HPV APTIMA, HR Negative Normal Negative [facility] Comment on above: Order Comment: Speci men Comment: [id number] Comment: Source.............Cervix;EndocervixSpecimen Comment: LMP / Prev Treat...[id number] Comment: Other..............Specimen Comment: No. of containers..01 ThinPrep Vial Result Comment: This nucleic acid amplification test detects fourteen high- risk HPV types (16,18,31,33,35,39,45,51,52,56,58,59,66,68) without differentiation. Performed By: #### L 501.0250, L509.8002, L3890.6006, BTS, L100.0100 #### [facility] [address] [place], [place], [address] HPV Sarah Rfx Comment Normal . [facility] Comment on above: Order Comment: Speci men Comment: [id number] Comment: Source.............Cervix;EndocervixSpecimen Comment: LMP / Prev Treat...[id number] Comment: Other..............Specimen Comment: No. of containers..01 ThinPrep Vial Result Comment: Crit erjoy not met, HPV Genotype not performed. Performed at: - [address] [id number] Assurance Senior: Silvia Irwin MD, Phone: [phone] Performed at: = - [facility] [address] [id number] Assurance Senior: Silvia Irwin MD, Phone: [phone] Performed By: #### L 501.0250, L509.8002, L3890.6006, BTS, L100.0100 #### [facility] [address] [place], [place], [id number] PAPSMR Comment Normal . [facility] Comment on above: Order Comment: Speci men Comment: [id number] Comment: Source.............Cervix;EndocervixSpecimen Comment: LMP / Prev Treat...[id number] Comment: Other..............Specimen Comment: No. of containers..01 ThinPrep Vial Result Comment: The Pap smear is a screening test designed to aid in the detection of premalignant and malignant conditions of the uterine cervix. It is not a diagnostic procedure and should not be used as the sole means of detecting cervical cancer. Both false-positive and false-negative reports do occur. Performed By: #### L 501.0250, L509.8002, L3890.6006, BTS, L100.0100 #### [facility] [address] [place], [address] PERFORM Comment Normal . [facility] Comment on above: Order Comment: Speci men Comment: [id number] Comment: Source.............Cervix;EndocervixSpecimen Comment: LMP / Prev Treat...[id number] Comment: Other..............Specimen Comment: No. of containers..01 ThinPrep Vial Result Comment: Tammy Horan, Territory Manager General Sales ([employer]) Performed By: #### L 501.0250, L509.8002, L3890.6006, BTS, L100.0100 #### [facility] [address] [place], [address] Chlamydia/GC ARIAN aptimaon CHLAMY,NUC ACID Negative Normal Negative [facility] Comment on above: Performed By: #### L 501.0250, L509.8002, L3890.6006, BTS, L100.0100 #### [facility] [address] [place], [address] GC BY NUC ACID Negative Normal Negative [facility] Comment on above: Result Comment: Perf ormed at: =G - [facility] [address] [id number] Assurance Senior: Silvia Irwin MD, Phone: [phone] Performed By: #### L 501.0250, L509.8002, L3890.6006, BTS, L100.0100 #### [facility] [address] [place], [address] Urine Cultureon 09-24-2024 URC Culture exhibits no growth. Normal [facility] Comment on above: Performed By: #### L 501.0250, L509.8002, L3890.6006, BTS, L100.0100 #### [facility] [address] [place], [place], [address] Absolute lymphocyte countOrd ered By: Greg Rich on 09-23-2024 Lymphocytes Auto (Unsp spec) [#/Vol] 2.53 10*3/uL 0.83-4.51 [facility] Absolute neutrophil countOrd ered By: Greg Rich on 09-23-2024 Neutrophils (Bld) [#/Vol] 8.7 10*3/uL High 2.0-7.7 [facility] Automated lymphocyte count a s percentage of total leukocytesOrdered By: Greg Rich on 09-23-2024 Lymphocytes/100 WBC Auto (Unsp spec) 20.5 % 19-41 [facility] Basophil percentageOrdered B y: Greg Rich on 09-23-2024 Basophils/100 WBC (Bld) 0.5 % 0-[address] [facility] C. trachomatis rRNA ARIAN+prob e Ql (Unsp spec)Ordered By: Greg Rich on 09-23-2024 Chlamydia DNA (ARIAN) Negative Negative [facility] CBC W/Diff, Automatedon - Absolute Lymph 2.53 X10 3/uL Normal 0.83-4.51 [facility] Comment on above: Performed By: #### L 900.0098, BTS, L3890.6006, L3890.6301, L509.4006, L3890.6102, L100.0100, L509.8002, L501.9985 #### [facility] [address] [place], [address] Absolute Neut 8.7 X10 3/uL High 2.0-7.7 [facility] Comment on above: Performed By: #### L 900.0098, BTS, L3890.6006, L3890.6301, L509.4006, L3890.6102, L100.0100, L509.8002, L501.9985 #### [facility] [address] [place], [address] Basophils/100 WBC (Bld) 0.5 % Normal 0-[address] [facility] Comment on above: Performed By: #### L 900.0098, BTS, L3890.6006, L3890.6301, L509.4006, L3890.6102, L100.0100, L509.8002, L501.9985 #### [facility] [address] [place], [address] Eosinophils/100 WBC (Bld) 1.2 % Normal 0-5 [facility] Comment on above: Performed By: #### L 900.0098, BTS, L3890.6006, L3890.6301, L509.4006, L3890.6102, L100.0100, L509.8002, L501.9985 #### [facility] [address] [place], [address] Erythrocyte distribution width (RBC) [Ratio] 14.0 % Normal 11.6-14.6 [facility] Comment on above: Performed By: #### L 900.0098, BTS, L3890.6006, L3890.6301, L509.4006, L3890.6102, L100.0100, L509.8002, L501.9985 #### [facility] [address] [place], [address] Hematocrit (Bld) [Volume fraction] 36.9 % Low 37-47 [facility] Comment on above: Performed By: #### L 900.0098, BTS, L3890.6006, L3890.6301, L509.4006, L3890.6102, L100.0100, L509.8002, L501.9985 #### [facility] [address] [place], [address] Hemoglobin (Bld) [Mass/Vol] 12.0 g/dL Normal 12.0-15.0 [facility] Comment on above: Performed By: #### L 900.0098, BTS, L3890.6006, L3890.6301, L509.4006, L3890.6102, L100.0100, L509.8002, L501.9985 #### [facility] [address] [place], [address] IG% 0.300 Normal 0.0-0.9 [facility] Comment on above: Result Comment: IG% - Immature Granulocytes (promyelocytes, myelocytes and metamyelocytes) > 1% indicates that a LEFT SHIFT is Present. Performed By: #### L 900.0098, BTS, L3890.6006, L3890.6301, L509.4006, L3890.6102, L100.0100, L509.8002, L501.9985 #### [facility] [address] [place], [address] Lymphocytes/100 WBC (Bld) 20.5 % Normal 19-41 [facility] Comment on above: Performed By: #### L 900.0098, BTS, L3890.6006, L3890.6301, L509.4006, L3890.6102, L100.0100, L509.8002, L501.9985 #### [facility] [address] [place], [address] MCH (RBC) [Entitic mass] 27.3 pg Normal 27.0-32.0 [facility] Comment on above: Performed By: #### L 900.0098, BTS, L3890.6006, L3890.6301, L509.4006, L3890.6102, L100.0100, L509.8002, L501.9985 #### [facility] [address] [place], [address] MCHC (RBC) [Mass/Vol] 32.5 g/dL Normal 32-36 [facility] Comment on above: Performed By: #### L 900.0098, BTS, L3890.6006, L3890.6301, L509.4006, L3890.6102, L100.0100, L509.8002, L501.9985 #### [facility] [address] [place], [address] MCV (RBC) [Entitic vol] 83.9 fL Normal 81-[address] [facility] Comment on above: Performed By: #### L 900.0098, BTS, L3890.6006, L3890.6301, L509.4006, L3890.6102, L100.0100, L509.8002, L501.9985 #### [facility] [address] [place], [address] Monocytes/100 WBC (Bld) 7.0 % Normal 0-10 [facility] Comment on above: Performed By: #### L 900.0098, BTS, L3890.6006, L3890.6301, L509.4006, L3890.6102, L100.0100, L509.8002, L501.9985 #### [facility] [address] [place], [address] Neutrophils/100 WBC (Bld) 70.5 % High 47-70 [facility] Comment on above: Performed By: #### L 900.0098, BTS, L3890.6006, L3890.6301, L509.4006, L3890.6102, L100.0100, L509.8002, L501.9985 #### [facility] [address] [place], [address] Nucleated RBC (Bld) [#/Vol] 0 10*3/uL Normal 0-5 [facility] Comment on above: Performed By: #### L 900.0098, BTS, L3890.6006, L3890.6301, L509.4006, L3890.6102, L100.0100, L509.8002, L501.9985 #### [facility] [address] [place], [address] ( Platelet mean volume (Bld) [Entitic vol] 10.7 fL Normal 6.2-12.0 [facility] Comment on above: Performed By: #### L 900.0098, BTS, L3890.6006, L3890.6301, L509.4006, L3890.6102, L100.0100, L509.8002, L501.9985 #### [facility] [address] [place], [address] (831) Platelets (Bld) [#/Vol] 294 10*3/uL Normal 150-450 [facility] Comment on above: Performed By: #### L 900.0098, BTS, L3890.6006, L3890.6301, L509.4006, L3890.6102, L100.0100, L509.8002, L501.9985 #### [facility] [address] [place], [address] (912) RBC (Bld) [#/Vol] 4.40 10*6/uL Normal 4.2-5.4 [facility] Comment on above: Performed By: #### L 900.0098, BTS, L3890.6006, L3890.6301, L509.4006, L3890.6102, L100.0100, L509.8002, L501.9985 #### [facility] [address] [place], [address] RDW SD 43.3 fl Normal 35.1-43.9 [facility] Comment on above: Performed By: #### L 900.0098, BTS, L3890.6006, L3890.6301, L509.4006, L3890.6102, L100.0100, L509.8002, L501.9985 #### [facility] [address] [place], [place], [id number] WBC (Bld) [#/Vol] 12.3 10*3/uL High 4.4-11.0 [facility] Comment on above: Performed By: #### L 900.0098, BTS, L3890.6006, L3890.6301, L509.4006, L3890.6102, L100.0100, L509.8002, L501.9985 #### [facility] [address] [place], [place], [id number] Cervical or vaginal specimen microscopic examination by liquid based cytology (reportOrdered By: Greg Rich on 09-23-2024 Cytology report Cyto stain.thin prep Doc (Cvx/Vag) Comment . [facility] Comment on above: Criteria not met, HP V Genotype not performed.Performed at: [facility] [id number] Director: Silvia Irwin MD, Phone: [phone] at: =[facility] [id number] Director: Silvia Irwin MD, Phone: [phone] Cervical or vagninal specime n microscopic examination by cytology stain (reported asOrdered By: Greg Rich on 09-23-2024 Cytology report Cyto stain Doc (Cvx/Vag) Comment . [facility] Comment on above: The Pap smear is a s creening test designed to aid in thedetection of premalignant and malignant conditions of theuterine cervix. It is not a diagnostic procedure andshould not be used as the sole means of detecting cervicalcancer. Both false-positive and false-negative reports dooccur. Chlamydia trachomatis rRNA d etection by probe and target amplification methodOrdered By: Greg Rich on 09-23-2024 C. trachomatis rRNA ARIAN+probe Ql (Unsp spec) Negative Negative [facility] Financial Advisor Trainee Cyto stain Nom (C vx/Vag) [ID]Ordered By: Greg Rich on 09-23-2024 Pap Smear Performed By Comment . [facility] Comment on above: Jorge A Art totechnologist (ASCP) Cytology report Cyto stain D oc (Cvx/Vag)Ordered By: Greg Rich on 09-23-2024 Thin Prep Pap Smear Comment . [facility] Comment on above: The Pap smear is a s creening test designed to aid in thedetection of premalignant and malignant conditions of theuterine cervix. It is not a diagnostic procedure andshould not be used as the sole means of detecting cervicalcancer. Both false-positive and false-negative reports dooccur. Cytology report Cyto stain.t hin prep Doc (Cvx/Vag)Ordered By: Greg Rich on 09-23-2024 HPV Genotype Special Info Comment . [facility] Comment on above: Criteria not met, HP V Genotype not performed.Performed at: - [address] [id number] Director: Silvia Irwin MD, Phone: [phone] at: = - [facility] [id number] Director: Silvia Irwin MD, Phone: [phone] Detection in cervical specim en of any of human papilloma virus (HPV) 16, 18, 31, 33,Ordered By: Greg Rich on 09-23-2024 HPV 16+18+31+33+35+39+45+51+ 52+56+58+59+66+68 DNA Probe+sig amp Ql (Cvx) Negative Negative [facility] Comment on above: This nucleic acid am plification test detects fourteen high-risk HPV types (16,18,31,33,35,39,45,51,52,56,58,59,66,68)without differentiation. Eosinophil percentageOrdered By: Greg Rich on 09-23-2024 Eosinophils/100 WBC (Bld) 1.2 % 0-5 [facility] Erythrocyte distribution wid th ratioOrdered By: Greg Rich on 09-23-2024 Erythrocyte distribution width (RBC) [Ratio] 14.0 % 11.6-14.6 [facility] Erythrocyte distribution wid th standard deviationOrdered By: Greg Rich on 09-23-2024 Erythrocyte distribution width (RBC) [Entitic vol] 43.3 fL 35.1-43.9 [facility] Erythrocyte distribution width (RBC) [Ratio] 43.3 fl 35.1-43.9 [facility] HBV surface Ag Ql (S)Ordered By: Greg Rich on 09-23-2024 Hepatitis B Surface Antigen Non-Reactive Nonreactive [facility] Comment on above: Reactive: Presumptiv e evidence of HBV. Repeatedly reactive samples must be confirmed using a neutralization test ([employer] HBsAg Confirmatory Test)Non-Reactive: HBsAg not detected; does not exclude the possibility of exposure to HBV HPV 16+18+31+33+35+39+45+51+ 52+56+58+59+66+68 DNA Probe+sig amp Ql (Cvx)Ordered By: Greg Rich on 09-23-2024 Human Papillomavirus High Risk Negative Negative [facility] Comment on above: This nucleic acid am plification test detects fourteen high-risk HPV types (16,18,31,33,35,39,45,51,52,56,58,59,66,68)without differentiation. Hematocrit Auto (Bld) [Volum e fraction]Ordered By: Greg Rich on 09-23-2024 Hematocrit (Bld) [Volume fraction] 36.9 % Low 37-47 [facility] Hemoglobin A1con 09-23-2024 HbA1c (Bld) [Mass fraction] 5.6 % Low <=5.6 [facility] Comment on above: Performed By: #### L 501.0250, L509.8002, L3890.6006, BTS, L100.0100 #### [facility] [address] [place] [address]. [place], [address] Hemoglobin A1c percentageOrd ered By: Greg Rich on 09-23-2024 HbA1c (Bld) [Mass fraction] 5.6 % Low >5.7 [facility] Hemoglobin measurementOrdere d By: Greg Rich on 09-23-2024 Hemoglobin (Bld) [Mass/Vol] 12.0 g/dL 12.0-15.0 [facility] Hepatitis C antibodyOrdered By: Greg Rich on 09-23-2024 Hepatitis C Antibody Non-Reactive Nonreactive [facility] Comment on above: Reactive: Presumptiv e evidence of antibodies to HCV. Follow CDC recommendations for supplemental testing.Non-Reactive: Antibodies to HCV were not detected; does not exclude the possibility of exposure to HCVReactive Results are presumptive evidence of antibodies to HCV. Follow CDC recommendations for supplemental testing.Order confirmation testing: HCV Quant by PCR testing - HCVPCR #[id number] Non Reactive: < 0.8 Equivocal: >/= 0.8 to < 1.0 Reactive: >/= 1.0The CDC requires that a reactive/equivocal HCV antibody result be sent out for confirmation. HCV Quant by PCR testing. Image-guided ThinPrep PapOrd ered By: Greg Rich on 09-23-2024 Pap Smear Note Comment . [facility] Comment on above: This liquid based Th inPrep(R) pap test was screened withthe use of an image guided system. Image-guided liquid-based Pa pOrdered By: Greg Rich on 09-23-2024 Pap Smear Diagnosis Comment . [facility] Comment on above: NEGATIVE FOR INTRAEP ITHELIAL LESION OR MALIGNANCY. Immature granulocytes/100 WB C Auto (Bld)Ordered By: Greg Rich on 09-23-2024 Immature granulocytes/100 WBC (Bld) 0.300 % 0.0-0.9 [facility] Comment on above: IG% - Immature Granu locytes (promyelocytes, myelocytes and metamyelocytes) > 1% indicates that a LEFT SHIFT is Present. L3890.6006on 09-23-2024 HIV Non-Reactive Normal Nonreactive [facility] Comment on above: Result Comment: Non- Reactive Reactive Repeatedly reactive samples must be confirmed according to CDC recommended confirmatory algorithms. The subresults for either HIVAG or AHIV can be used as an aid in the selection of the confirmation algorithm for reactive samples. Send out specimens with Reactive results to [facility] for confirmation. Order the HIV antibody detection and differentiation: [id number] Performed By: #### L 900.0098, BTS, L3890.6006, L3890.6301, L509.4006, L3890.6102, L100.0100, L509.8002, L501.9985 #### [facility] [address] [place], [address] L3890.6102on 09-23-2024 HEP B Surf Ag Non-Reactive Normal Nonreactive [facility] Comment on above: Result Comment: Reac tive: Presumptive evidence of HBV. Repeatedly reactive samples must be confirmed using a neutralization test ([employer] HBsAg Confirmatory Test) Non-Reactive: HBsAg not detected; does not exclude the possibility of exposure to HBV Performed By: #### L 501.0250, L509.8002, L3890.6006, BTS, L100.0100 #### [facility] [address] [place], [address] L3890.6301on 09-23-2024 Hepatitis C Ab Non-Reactive Normal Nonreactive [facility] Comment on above: Result Comment: Reac tive: Presumptive evidence of antibodies to HCV. Follow CDC recommendations for supplemental testing. Non-Reactive: Antibodies to HCV were not detected; does not exclude the possibility of exposure to HCV Reactive Results are presumptive evidence of antibodies to HCV. Follow CDC recommendations for supplemental testing. Order confirmation testing: HCV Quant by PCR testing - HCVPCR #[id number] Non Reactive: < 0.8 Equivocal: >/= 0.8 to < 1.0 Reactive: >/= 1.0 The CDC requires that a reactive/equivocal HCV antibody result be sent out for confirmation. HCV Quant by PCR testing. Performed By: #### L 501.0250, L509.8002, L3890.6006, BTS, L100.0100 #### [facility] [address] [place], [address] L509.4006on 09-23-2024 Rubella IgG REAC Normal Nonreactive [facility] Comment on above: Result Comment: Anti body Result: Interpretation Non-Reactive: Non-Immune Reactive: Immune The following results were obtained with the [employer] Rubella IgG assay. Results from assays of other manufacturers cannot be used interchangeably. Performed By: #### L 900.0098, BTS, L3890.6006, L3890.6301, L509.4006, L3890.6102, L100.0100, L509.8002, L501.9985 #### [facility] [address] [place], [address] L509.8002on 09-23-2024 Syphilis Abs Non-Reactive Normal Nonreactive [facility] Comment on above: Performed By: #### L 501.0250, L509.8002, L3890.6006, BTS, L100.0100 #### [facility] [address] [place], [address] Laboratory - CytologyOrdered By: Greg Rich on 09-23-2024 Financial Advisor Trainee Cyto stain Nom (Cvx/Vag) [ID] Comment . [facility] Comment on above: Jorge A Art totechnologist (ASCP) Laboratory - Microbiology an d Antimicrobial susceptibilityOrdered By: Greg Rich on 09-23-2024 HBV surface Ag Ql (S) Non-Reactive Nonreactive [facility] Comment on above: Reactive: Presumptiv e evidence of HBV. Repeatedly reactive samples must be confirmed using a neutralization test ([employer] HBsAg Confirmatory Test)Non-Reactive: HBsAg not detected; does not exclude the possibility of exposure to HBV Laboratory - Miscellaneous t estsOrdered By: Greg Rich on 09-23-2024 Service comment (Unsp spec) [Interp] . . [facility] Lymphocytes Auto (Unsp spec) [#/Vol]Ordered By: Greg Rich on 09-23-2024 Lymphocytes (Bld) [#/Vol] 2.53 10*3/uL 0.83-4.51 [facility] Lymphocytes/100 WBC Auto (Un sp spec)Ordered By: Greg Rich on 09-23-2024 Lymphocytes/100 WBC (Bld) 20.5 % 19-41 [facility] MCV (mean corpuscular volume ) determinationOrdered By: Greg Rich on 09-23-2024 MCV (RBC) [Entitic vol] 83.9 fL 81-[address] [facility] Mean corpuscular hemoglobin (MCH) determinationOrdered By: Greg Rich on 09-23-2024 MCH (RBC) [Entitic mass] 27.3 pg 27.0-32.0 [facility] Mean corpuscular hemoglobin concentration (MCHC) determinationOrdered By: Greg Rich on 09-23-2024 MCHC (RBC) [Mass/Vol] 32.5 g/dL 32-36 [facility] Mean platelet volume determi nationOrdered By: Greg Rich on 09-23-2024 Platelet mean volume (Bld) [Entitic vol] 10.7 fL 6.2-12.0 [facility] Miscellaneous procedureOrder ed By: Greg Rich on 09-23-2024 Miscellaneous Test Comment SEE SCANNED REPORT [facility] Monocyte percentageOrdered B y: Greg Rich on 09-23-2024 Monocytes/100 WBC (Bld) 7.0 % 0-[address] [facility] NATERAon 09-23-2024 NATURA SEE SCANNED REPORT Normal [facility] Comment on above: Order Comment: Comme nts: NIPT with Gender Performed By: #### L 900.0098, BTS, L3890.6006, L3890.6301, L509.4006, L3890.6102, L100.0100, L509.8002, L501.9985 #### [facility] [address] [place], [place], [address] Neisseria gonorrhoeae nuclei c acid detection by amplified probe techniqueOrdered By: Greg Rich on 09-23-2024 N. gonorrhoeae DNA ARIAN+probe Ql (Unsp spec) Negative Negative [facility] Comment on above: Performed at: =[address] [id number] Director: Silvia Irwin MD, Phone: [phone] Neutrophil percentageOrdered By: Greg Rich on 09-23-2024 Neutrophils/100 WBC (Bld) 70.5 % High 47-70 [facility] No Panel InformationOrdered By: Greg Rich on 09-23-2024 Pap Smear Specimen Adequacy Comment . [facility] Comment on above: Satisfactory for rosa luation. No endocervical component is identified.An endocervical component is not commonly seen in the patient. HIV (1&2) Antibody Non-Reactive Nonreactive [facility] Comment on above: Non-ReactiveReactive Repeatedly reactive samples must be confirmed according to CDC recommended confirmatory algorithms. The subresults for either HIVAG or AHIV can be used as an aid in the selection of the confirmation algorithm for reactive samples.Send out specimens with Reactive results to [facility] for confirmation.Order the HIV antibody detection and differentiation: #[id number] Nucleated red blood cell per centageOrdered By: Greg Rich on 09-23-2024 Nucleated RBC/100 WBC (Bld) [Ratio] 0 % 0-5 [facility] Mechanical Shovel Operator Office Visit Reporton 09-23-2024 Mechanical Shovel Operator Office Visit Report [facility] [address], [address] [place] [address] OFFICE VISIT Date of Service: 09/23/24 MR#: [id number] Acct: [id number] Name: DEMETRIUS FERNANDES Rep #: [id number] : 1990 Provider: ZACHARY Way ams Age/Sex: 34/F Location: [facility] Status: Signed Intake Vital Signs 04/13/21 20:08 [...] occupational status: employed and unemployed current occupation: [employer] current occupational exposures/hazards: No pets and animals: [...] 1-2 times per week duration: 30-45 minutes/day parul/sabianism: None seatbelt use: always do you feel safe at home: Yes additional social history: - Froilan [employer] @ [employer] 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 Date Name GA/Weeks Outcome Route Bth Weight Infant Gen Labor Lgth Anesthesia Del [facility] Provider FOB 04/14/21 Timmy 41 live - full term 8#2oz Male epidural [facility] GP Froilan Delivery Date: 04/14/21 Last Updated [...] list details Initial Weight: 309 lb Date -???-???-???-???-???-? ??-???-???-???-???-??? -???- EGA Weight BP Urine Prot -???-???-???-???-???-? ??-???-???-???-???-??? -???- Glucose FHR FuHt Pres Dilation -???-???-???-???-???-? ??-???-???-???-???-??? -???- Effaced St Visit Note 09/23/24 -???-???-???-???-???-? ??-???-???-???-???-??? -???- 10w 4d 309 lb 4 oz (+4 oz) 121/67 -???-???-???-???-???-? ??-???-???-???-???-??? -???- 168 -???-???-???-???-???-? ??-???-???-???-???-??? -???- KW- CRL cons with dates. accepts NIPT-very concerned about weight with this KW- CRL cons with dates. accepts (more content not included)... Normal [facility] Platelet countOrdered By: Akbar Rich on 09-23-2024 Platelets (Bld) [#/Vol] 294 10*3/uL 150-450 [facility] RBC Auto (Bld) [#/Vol]Ordere d By: Greg Rich on 09-23-2024 RBC (Bld) [#/Vol] 4.40 10*6/uL 4.2-5.4 [facility] Rubella immune status determ ination by IgG antibody assayOrdered By: Greg Rich on 09-23-2024 Rubella IgG Antibody REAC Nonreactive [facility] Comment on above: Antibody Result: Int erpretationNon-Reactive: Non-ImmuneReactive: ImmuneThe following results were obtained with the [employer] Rubella IgG assay. Results from assays of other manufacturers cannot be used interchangeably. Service comment (Unsp spec) [Interp]Ordered By: Greg Rich on 09-23-2024 Pap Smear Comment (3) . . [facility] T. pallidum abOrdered By: Akbar Rich on 09-23-2024 Syphilis Total Antibody Non-Reactive Nonreactiv e [facility] Type AND Screenon 09-23-2024 ABO and Rh group Nom (Bld) Blood group O Rh(D) negative Normal [facility] Comment on above: Order Comment: PN Performed By: #### L 900.0098, BTS, L3890.6006, L3890.6301, L509.4006, L3890.6102, L100.0100, L509.8002, L501.9985 #### [facility] [address] [place] [address]. [place], [address] Urine cultureOrdered By: Luan Rich on 09-23-2024 Bacteria identified Cx Nom (U) Culture exhibits no growth. [facility] White blood cell (WBC) count Ordered By: Greg Rich on 09-23-2024 WBC (Bld) [#/Vol] 12.3 10*3/uL High 4.4-11.0 [facility] Serum Varicella zoster virus IgG antibody assay by immunoassay (units/volume)Ordered By: Cristina Barros on 03-06-2023 VZV IgG IA Qn (S) 3665 index Immune >165 [facility] Comment on above: Negative <135 Equivo eben 135 - 165 Positive >165A positive result generally indicates exposure to thepathogen or administration of specific immunoglobulins,but it is not indication of active infection or stageof disease.Performed at: [facility] [id number] [place], [place] [id number] Director: Jake Ferreira PhD, Phone: [phone] No Panel Informationon 02-19 Rubella IgG Antibody Reactive Nonreactive [facility] Work Phone: Comment on above: Antibody Results Int erpretation of Immune Status Non Reactive Presumed Non-Immune Equivocal Equivocal Reactive Presumed Immune Serum measles virus IgG anti body assay by immunoassay (units/volume)on 02-19-2022 MeV IgG IA Qn (S) 150.0 AU/mL Immune >16.4 [facility] Work Phone: Comment on above: Negative <13.5 Equiv ocal 13.5 - 16.4 Positive >16.4Presence of antibodies to Rubeola is presumptive evidenceof immunity except when acute infection is suspected.Performed at: [facility] [id number] [place], [place] [id number] Director: Jake Ferreira PhD, Phone: [phone] Serum mumps virus IgG antibo dy assay (units/volume)on 02-19-2022 MuV IgG Qn (S) 16.6 AU/mL Immune >10.9 [facility] Work Phone: Comment on above: Negative <9.0 Equivo eben 9.0 - 10.9 Positive >10.9A positive result generally indicates past exposure toMumps virus or previous vaccination. Vital Signs Date Time Vital Sign Value Performing Clinician Faci lity 03-21-2025 10:29-0400 Body height 175.26 cm Erick Brooks FOOD SAFETY OFFICER-C Work Phone: [facility] 03-21-2025 10:29-0400 Body mass index (BMI) [Ratio] 50.5 kg/m2 Erick Kearney FOOD SAFETY OFFICER-C Work Phone: [facility] 03-21-2025 10:29-040 Body weight 155.29 kg Erick Kearney FOOD SAFETY OFFICER-C Work Phone: [facility] 03-21-2025 10:29-0400 Diastolic blood pressure 72 mm[Hg] Erick Brooks FOOD SAFETY OFFICER-C Work Phone: [facility] 03-21-2025 10:29-0400 Systolic blood pressure 127 mm[Hg] Erick Brooks FOOD SAFETY OFFICER-C Work Phone: [facility] 03-15-2025 10:55-0400 Respiratory rate 16 /min Erick Brooks FOOD SAFETY OFFICER-C Work Phone: [facility] 03-15-2025 10:44-0400 Diastolic blood pressure 66 mm[Hg] Erick Brooks FOOD SAFETY OFFICER-C Work Phone: [facility] 03-15-2025 10:44-0400 Heart rate 74 /min Erick Brooks FOOD SAFETY OFFICER-C Work Phone: [facility] 03-15-2025 10:44-0400 Systolic blood pressure 123 mm[Hg] Erick Brooks FOOD SAFETY OFFICER-C Work Phone: [facility] 03-15-2025 10:40-0400 Body height 175.26 cm Erick Kearney FOOD SAFETY OFFICER-C Work Phone: [facility] 03-15-2025 10:40-0400 Body mass index (BMI) [Ratio] 49.8 kg/m2 Erick Brooks FOOD SAFETY OFFICER-C Work Phone: [facility] 03-15-2025 10:40-0400 Body weight 153 kg Erick Brooks FOOD SAFETY OFFICER-C Work Phone: [facility] 03-09-2025 10:33-0400 Heart rate 67 /min Erick Kearney FOOD SAFETY OFFICER-C Work Phone: [facility] 03-09-2025 10:33-0400 SaO2% (BldA) [Mass fraction] 96 % Erick Brooks FOOD SAFETY OFFICER-C Work Phone: [facility] 03-09-2025 10:29-0400 Body height 175.26 cm Erick Brooks FOOD SAFETY OFFICER-C Work Phone: [facility] 03-09-2025 10:29-0400 Body mass index (BMI) [Ratio] 50.1 kg/m2 Erick Brooks FOOD SAFETY OFFICER-C Work Phone: [facility] 03-09-2025 10:29-0400 Body weight 154.1 kg Erick Brooks FOOD SAFETY OFFICER-C Work Phone: [facility] 03-09-2025 10:22-0400 Diastolic blood pressure 58 mm[Hg] Erick Brooks FOOD SAFETY OFFICER-C Work Phone: [facility] 03-09-2025 10:22-0400 Systolic blood pressure 122 mm[Hg] Erick Kearney FOOD SAFETY OFFICER-C Work Phone: [facility] 03-09-2025 10:19-0400 Body temperature 97.5 [degF] Erick Kearney FOOD SAFETY OFFICER-C Work Phone: [facility] 03-09-2025 10:19-0400 Respiratory rate 18 /min Erick Kearney FOOD SAFETY OFFICER-C Work Phone: [facility] 03-09-2025 08:55-0400 Body height 175.26 cm Erick Kearney FOOD SAFETY OFFICER-C Work Phone: [facility] 03-09-2025 08:54-0400 Body mass index (BMI) [Ratio] 50.1 kg/m2 Erick Brooks FOOD SAFETY OFFICER-C Work Phone: [facility] 03-09-2025 08:54-0400 Body weight 153.93 kg Erick Kearney FOOD SAFETY OFFICER-C Work Phone: [facility] 03-09-2025 08:54-0400 Diastolic blood pressure 85 mm[Hg] Erick Brooks FOOD SAFETY OFFICER-C Work Phone: [facility] 03-09-2025 08:54-0400 Systolic blood pressure 136 mm[Hg] Erick Kearney FOOD SAFETY OFFICER-C Work Phone: [facility] 02-22-2025 10:03-0400 Body height 175.26 cm Erick Kearney FOOD SAFETY OFFICER-C Work Phone: [facility] 02-22-2025 10:03-0400 Body mass index (BMI) [Ratio] 49.9 kg/m2 Erick Kearney FOOD SAFETY OFFICER-C Work Phone: [facility] 02-22-2025 10:03-0400 Body weight 153.34 kg Erick Kearney FOOD SAFETY OFFICER-C Work Phone: [facility] 02-22-2025 10:03-0400 Diastolic blood pressure 76 mm[Hg] Erick Kearney FOOD SAFETY OFFICER-C Work Phone: [facility] 02-22-2025 10:03-0400 Systolic blood pressure 132 mm[Hg] Erick Kearney FOOD SAFETY OFFICER-C Work Phone: [facility] 02-07-2025 09:25-0400 Body height 175.26 cm Erick Brooks FOOD SAFETY OFFICER-C Work Phone: [facility] 02-07-2025 09:25-0400 Body mass index (BMI) [Ratio] 49 kg/m2 Erick Kearney FOOD SAFETY OFFICER-C Work Phone: [facility] 02-07-2025 09:25-0400 Body weight 150.59 kg Erick Kearney FOOD SAFETY OFFICER-C Work Phone: [facility] 02-07-2025 09:25-0400 Diastolic blood pressure 71 mm[Hg] Erick Brooks FOOD SAFETY OFFICER-C Work Phone: [facility] 02-07-2025 09:25-0400 Systolic blood pressure 107 mm[Hg] Erick Kearney FOOD SAFETY OFFICER-C Work Phone: [facility] 01-24-2025 08:40-0400 Body height 175.[address] Aye Dey DO Work Phone: [facility] 01-24-2025 08:30-0400 Body mass index (BMI) [Ratio] 48.9 kg/m2 Dr. Aye Dey DO Work Phone: [facility] 01-24-2025 08:30-0400 Body weight 150.[address] Aye Dey DO Work Phone: [facility] 01-24-2025 08:30-0400 Diastolic blood pressure 72 mm[Hg] Dr. Aye Dey DO Work Phone: [facility] 01-24-2025 08:30-0400 Systolic blood pressure 124 mm[Hg] Dr. Aye Dey DO Work Phone: [facility] 01-12-2025 09:43-0400 Body height 175.26 cm Greg Rich CNM Work Phone: [facility] 01-12-2025 09:43-0400 Body mass index (BMI) [Ratio] 48.4 kg/m2 Greg LUIM Work Phone: [facility] 01-12-2025 09:43-0400 Body weight 149 kg Greg LUIM Work Phone: [facility] 01-12-2025 09:43-0400 Diastolic blood pressure 82 mm[Hg] Greg LUIM Work Phone: [facility] 01-12-2025 09:43-0400 Systolic blood pressure 130 mm[Hg] Greg LUIM Work Phone: [facility] 12-16-2024 09:30-0400 Body height 175.26 cm Greg Rich CNM Work Phone: [facility] 12-16-2024 09:06-0400 Body mass index (BMI) [Ratio] 47.2 kg/m2 Greg LUIM Work Phone: [facility] 12-16-2024 09:06-0400 Body weight 145.14 kg Greg LUIM Work Phone: [facility] 12-16-2024 09:06-0400 Diastolic blood pressure 69 mm[Hg] Greg Rich CNM Work Phone: [facility] 12-16-2024 09:06-0400 Systolic blood pressure 119 mm[Hg] Greg Rich CNM Work Phone: [facility] 11-17-2024 08:40-0400 Body height 175.26 cm Greg Rich CNM Work Phone: [facility] 11-17-2024 08:40-0400 Body mass index (BMI) [Ratio] 46.8 kg/m2 Greg Rich CNM Work Phone: [facility] 11-17-2024 08:40-0400 Body weight 144.01 kg Greg Rich CNM Work Phone: [facility] 11-17-2024 08:40-0400 Diastolic blood pressure 80 mm[Hg] Greg Rich CNM Work Phone: [facility] 11-17-2024 08:40-0400 Systolic blood pressure 126 mm[Hg] Greg Rich CNM Work Phone: [facility] 10-22-2024 10:18-0400 Body mass index (BMI) [Ratio] 46 kg/m2 Greg Rich CNM Work Phone: [facility] 10-22-2024 10:18-0400 Body weight 141.57 kg Greg Rich CNM Work Phone: [facility] 10-22-2024 10:18-0400 Diastolic blood pressure 76 mm[Hg] Greg Rich CNM Work Phone: [facility] 10-22-2024 10:18-0400 Systolic blood pressure 119 mm[Hg] Greg Rich CNM Work Phone: [facility] 09-23-2024 09:08-0400 Body height 175.26 cm Greg Rich CNM Work Phone: [facility] 09-23-2024 09:05-0400 Body mass index (BMI) [Ratio] 45.6 kg/m2 Greg Rich CNM Work Phone: [facility] 09-23-2024 09:05-0400 Body weight 140.27 kg Greg Rich CNM Work Phone: [facility] 09-23-2024 09:05-0400 Diastolic blood pressure 67 mm[Hg] Greg Rich CNM Work Phone: [facility] 09-23-2024 09:05-0400 Systolic blood pressure 121 mm[Hg] Greg Rich CNM Work Phone: [facility] Encounters Encounter Date Encounter Type Care Provider Facility Start: 03-28-2025 ambulatory [facility] Faci lity:[facility] Start: 03-21-2025 End: 03-21-2025 ambulatory [facility] Facility:[facility] Start: 03-21-2025 End: 03-21-[address] Fiordaliza Zhong MD -[facility] Work Phone: Start: 03-17-2025 End: 03-17-2025 ambulatory [facility] Start: 03-16-2025 End: 03-16-2025 ambulatory [facility] Start: 03-15-2025 Non-patient / Non-visit Dr. Fiordaliza Zhong MD -[facility] Start: 03-15-2025 End: 03-15-2025 ambulatory Erick Rodriguez FOOD SAFETY OFFICER-C Work Phone: -[facility] Start: 03-15-2025 End: 03-15-[address] [facility] Work Phone: Start: 03-11-2025 End: 03-11-2025 ambulatory FRANKY Matamoros [facility] Start: 03-09-2025 ambulatory Aye Sanchez:[facility] Start: 03-09-2025 Non-patient / [facility] Start: 03-09-2025 End: 03-09-[address] Aye Dey DO -[facility] Work Phone: Start: 03-09-2025 End: 03-09-2025 ambulatory Erick Rodriguez FOOD SAFETY OFFICER-C Work Phone: -[facility] Start: 03-07-2025 End: 03-07-2025 ambulatory ERICK Kodak BROOKS [facility] Start: 02-22-2025 End: 02-22-2025 Patient encounter procedure Greg Rich CNM -[facility] Work Phone: Start: 02-22-2025 End: 02-22-2025 ambulatory Erick Rodriguez FOOD SAFETY OFFICER-C Work Phone: -[facility] Start: 02-07-2025 End: 02-07-[address] Aye Dey DO -[facility] Work Phone: Start: 02-07-2025 End: 02-07-2025 ambulatory Erick Brooks FOOD SAFETY OFFICER-C Work Phone: -[facility] Start: 01-25-2025 End: 01-25-[address] Aye Dey DO Work Phone: -Laboratory Start: 01-25-2025 End: 01-25-2025 Patient encounter procedure Erick Rodriguez FOOD SAFETY OFFICER-C -Laboratory Work Phone: Start: 01-24-2025 End: 01-24-2025 Patient encounter procedure Erick Brooks FOOD SAFETY OFFICER-C -[facility] Work Phone: Start: 01-24-2025 End: 01-25-[address] Aye Dey DO Work Phone: -[facility] Start: 01-24-2025 End: 01-24-2025 ambulatory Erick Brooks FOOD SAFETY OFFICER Facility:[facility] Start: 01-12-2025 End: 01-12-2025 Patient encounter procedure Erick Rodriguez FOOD SAFETY OFFICER-C -[facility] Work Phone: Start: 01-12-2025 End: 01-12-2025 ambulatory Greg Rich CNM Work Phone: -[facility] Start: 12-16-2024 End: 12-16-[address] Fiordaliza Zhong MD -[facility] Work Phone: Start: 12-16-2024 End: 12-16-2024 ambulatory Greg Rich CNM Work Phone: [facility] Work Phone: Start: 11-23-2024 End: 11-23-2024 ambulatory MD URIBE [facility] Start: 11-17-2024 End: 11-17-2024 Patient encounter procedure Erick Rodriguez FOOD SAFETY OFFICER-C -[facility] Work Phone: Start: 11-17-2024 End: 11-17-2024 ambulatory Greg Rich CNM Work Phone: [facility] Work Phone: Start: 11-17-2024 End: 11-17-2024 ambulatory Erick Rodriguez NP Facility:[facility] Start: 10-22-2024 End: 10-22-[address] Aye Dey DO -[facility] Work Phone: Start: 10-22-2024 End: 10-22-2024 ambulatory Aye Dey Facility:[facility] Start: 10-04-2024 End: 10-04-2024 ambulatory Greg Rich CNM Work Phone: [facility] Work Phone: Start: 10-04-2024 End: 10-04-[address] Aye Mixon, [facility] Start: 10-04-2024 End: 10-04-2024 ambulatory Aye Dey Facility:[facility] Start: 09-23-2024 End: 09-23-2024 Patient encounter procedure Grge Rich CNM -[facility] Work Phone: Start: 09-23-2024 End: 09-23-2024 ambulatory Greg Rich CNM Work Phone: [facility] Work Phone: Start: 09-23-2024 End: 09-23-2024 ambulatory Greg Rich Facility:[facility] Start: 03-06-2023 End: 03-06-2023 ambulatory [facility] Work Phone: Start: 03-06-2023 End: 03-06-2023 Patient encounter procedure [facility] [place] Work Phone: Start: 02-19-2022 End: 02-19-2022 Patient encounter procedure [facility] [place] Procedures Date Procedure Procedure Detail Performing Clinician Start: 01-24-2025 Serologic test for syphilis Dr. Aye Dey DO Work Phone: Start: 11-17-2024 Procedure Greg Rich CNJuanita Work Phone: Comment on above: Test Ordered: [id number] AFP, Serum, Open Sp jeb BifidaResults Report [...] Comment TG Reference Range: .Candice Simmons, Ph.D., [facility]PITALCCDirectorReferences: Available Upon Request.Multiples Of Median Cutoffs For AFP ElevationsSingleton 2.5 Black 2.8IDD 2.0 Twins 4.5 Abbreviation DefinitionsIDD - Insulin Dep DiabetesOSBR - Open Spina Bifida RiskFor further inquiries contact [employer] at [phone].This test was developed and its performance characteristicsdetermined by [facility]. It has not been cleared or approvedby the Food and Drug Administration.Performed at: TG - [facility] [id number] [place], [place] [id number] Director: Cara Lanza [facility], Phone: [phone] at: CB - [facility] [id number] Director: Jake Ferreira PhD, Phone: [phone] Test Ordered: [id number] AFP, Serum, Open Spina BifidaResults Comment TG Reference Range: .The MOM and risk factors of this report have been modifiedbased on new information supplied to us by the client ortheir designated telephone claims representative.The Weight was changed from Not provided. [...] [employer] to discuss available options. The [place] of Obstetricians and Gynecologists recommendsamniocentesis be offered [...] Open Spina Bifida RiskFor further inquiries contact [employer] at [phone].This test was developed and its performance characteristicsdetermined by [facility]. It has not been cleared or approvedby the Food and Drug Administration.Performed at: TG - [facility] [id number] [place], [place] [id number] Director: Cara Lanza [facility], Phone: [phone] at: CB - [facility] [address] [id number] Director: Jake Ferreira PhD, Phone: [phone] reported result: COMMENT Edited by: GISELA on 11/23/24:1609 AMENDED REPORT 11/23/24 1609 [facility] Mis. previously reported as: COMMENT Test Ordered: [id number] AFP, Serum, Open Spina BifidaResults Report TG [...] Open Spina Bifida RiskFor further inquiries contact [employer] at [phone].This test was developed and its performance characteristicsdetermined by [facility]. It has not been cleared or approvedby the Food and Drug Administration.Performed at: [facility] [id number] [place], [place] [id number] Director: Cara Lanza [facility], Phone: [phone] at: [facility] [id number] Director: Jake Ferreira PhD, Phone: [phone] Start: 10-04-2024 Procedure Greg Rich CNM Work Phone: Start: 09-23-2024 Liquid based cervical cytology screening Greg Rich CNM Work Phone: Comment on above: NEGATIVE FOR INTRAEPITHELIAL LESION OR M ALIGNANCY. This liquid based Th inPrep(R) pap test was screened withthe use of an image guided system. Start: 09-23-2024 Urine culture Greg Rich CNM Work Phone: Start: 09-23-2024 Hepatitis C antibody measurement Greg collazo [facility] Work Phone: Comment on above: Reactive: Presumptive evidence of antibo dies to HCV. Follow CDC recommendations for supplemental testing.Non-Reactive: Antibodies to HCV were not detected; does not exclude the possibility of exposure to HCVReactive Results are presumptive evidence of antibodies to HCV. Follow CDC recommendations for supplemental testing.Order confirmation testing: HCV Quant by PCR testing - HCVPCR #[id number] Non Reactive: < 0.8 Equivocal: >/= 0.8 to < 1.0 Reactive: >/= 1.0The [facility] requires that a reactive/equivocal HCV antibody result be sent out for confirmation. HCV Quant by PCR testing. Start: 09-23-2024 Procedure Greg Rich [facility] Work Phone: Start: 09-23-2024 Rubella IgG measurement Greg Rich [facility] Work Phone: Comment on above: Antibody Result: InterpretationNon-React macario: Non-ImmuneReactive: ImmuneThe following results were obtained with the [employer] Rubella IgG assay. Results from assays of other manufacturers cannot be used interchangeably. Start: 09-23-2024 Serologic test for syphilis Greg Seamusana [facility] Work Phone: Plan of Treatment Date Care Activity Detail Author Start: 03-15-2025 Nonstress test [facility] Start: 03-15-2025 Obstetric monitoring [facility] Start: 03-15-2025 Vital signs measurements [facility] Start: 03-15-2025 [facility] Start: 03-15-2025 Patient discharge [facility] Start: 03-09-2025 Nonstress test [facility] Start: 03-09-2025 Obstetric monitoring [facility] Start: 03-09-2025 Vital signs measurements [facility] Start: 03-09-2025 [facility] Start: 03-09-2025 Patient discharge [facility] Start: 01-24-2025 CBC W Auto Different ial panel - Blood [facility] Start: 01-24-2025 Measurement of gluco se 2 hours after glucose challenge for glucose tolerance test [facility] Start: 01-24-2025 Serologic test for syphilis [facility] Start: 01-24-2025 [facility] CBC W Auto Different ial panel - Blood [facility] Erythrocyte mean corpuscular volume determination [facility] Hematocrit [Volume Fraction] of Blood [facility] Hemoglobin [Mass/vol ume] in Blood [facility] Leukocytes [#/volume ] in Blood [facility] Mean corpuscular hemoglobin concentration determination [facility] Mean corpuscular hemoglobin determination [facility] Measurement of gluco se 2 hours after glucose challenge for glucose tolerance test [facility] Neutrophil count [facility] Neutrophil percent differential count [facility] Patient Education Kick Counts ED False Labor OB Triage: Return to Hospital or Notify Physician if you Experience: [facility] Work Phone: Platelets [#/volume] in Blood [facility] Red blood cell count [facility] Red cell distributio n width determination [facility] Serologic test for syphilis [facility] Streptococcus agalac tiae [Presence] in Unspecified specimen by Organism specific culture [facility] Immunizations Immunization Date Immunization Notes [facility] tetanus toxoid, redu lashon diphtheria toxoid, and acellular pertussis vaccine, adsorbed Dr. Aye Dey DO Work Phone: [facility] 01-12-2021 tetanus toxoid, redu lashon diphtheria toxoid, and acellular pertussis vaccine, adsorbed [facility] Payers Date Payer Category Payer Self-pay [id number] Unknown [id number] 1989 Unknown [id number] 2..[id number] 1989 Unknown [id number] 1989 Unknown [id number] 2.16840.1.498738.3.579.2.479 1989 Unknown [id number] 2.16840.1.580554.3.579.2.479 1989 Unknown [id number] 2.16.840.1.744680.3.579.2.479 1989 Unknown [id number] 2.840.1.624084.3.579.2.479 Unknown [id number] Unknown [id number] Unknown [id number] Unknown [facility] * * DO NOT USE [id number] Unknown [id number] 2.840.1.167318.3.579.2.462 Unknown [id number] 2.840.1.929345.3.579.2.462 Unknown [id number] 2.16840.1.181063.3.579.2.462 Unknown [id number] 2.840.1.154363.3.579.2.462 Unknown [id number] 2.840.1.177335.3.579.2.462 Unknown [id number] 2.16840.1.685750.3.579.2.462 Unknown [id number] 2.16840.1.913984.3.579.2.462 Unknown [id number] 2.16840.1.511633.3.579.2.462 Unknown [id number] 2.16840.1.441295.3.579.2.462 Unknown [id number] 2.840.1.225665.3.579.2.462 Unknown [id number] 2.16.840.1.461390.3.579.2.462 Unknown [id number] 2.16.840.1.173850.3.579.2.462 Unknown [id number] 2.16.840.1.199035.3.579.2.462 Unknown [id number] 2.16.840.1.420950.3.579.2.462 Unknown [id number] 2.16.840.1.580513.3.579.2.462 Unknown [id number] 2.16.840.1.563830.3.579.2.462 Unknown [id number] 2.16.840.1.300280.3.579.2.462 Unknown [id number] 2.16.840.1.853155.3.579.2.462 Unknown [id number] 2.16840.1.814332.3.579.2.462 Unknown [id number] 2.16.840.1.673189.3.579.2.462 Social History Date Type Detail Facility Start: 05-30-2021 Tobacco smoking stat [facility] Unknown if ever smoked [facility] Start: 1990 Sex Assigned At Female [facility] Start: 09-14-2024 [facility] Start: 10-04-2024 End: 10-09-2024 Sex Female (finding) [facility] Medical Equipment Procedure Code Equipment Code Equipment Origin al Text Equipment Identifier Dates Blood Sugar Diagnostic (Advanced Gluc Meter Test Strip) strip Start: 03-07-2025 Lancets mis Start: 03-07-2025 Blood Sugar Diagnostic (Advanced Gluc Meter Test Strip) strip Start: 03-07-2025 Lancets misc Start: 03-07-2025 Blood Sugar Diagnostic (Advanced Gluc Meter Test Strip) strip Start: 03-07-2025 Lancets misc Start: 03-07-2025 Blood Sugar Diagnostic (Advanced Gluc Meter Test Strip) strip Start: 03-07-2025 Lancets misc Start: 03-07-2025 Clinical Notes 09-23-2024 to 03-21-2025 Note Date & Type Note Facility 03-21-2025 Progress note [facility] 03-15-2025 Progress note [facility] 02-22-2025 Progress note [facility] 12-16-2024 Evaluation note Diagnosis Onset Date Resolution Advanced maternal age (AMA) in acute December 16 9:02am Pre-existing severe obesity in mother affecting acute December 16 9:02am acute December 16, 2024 9:02am Rh negative state in antepartum period acute December 16, 2024 9:02am Supervision of high-risk acute December 16, 2024 9:02am Advanced maternal age (AMA) in acute January 12 9:40am Pre-existing severe obesity in mother affecting acute January 12 9:40am acute January 12, 2025 9:40am Rh negative state in antepartum period acute January 12, 2025 9:40am Supervision of high-risk acute January 12, 2025 9:40am Advanced maternal age (AMA) in acute January 24 8:22am Pre-existing severe obesity in mother affecting acute January 24, 8:22am acute January 24 8:22am Rh negative state in antepartum period acute January 24 8:22am Supervision of high-risk acute January 24, 2025 8:22am Abnormal glucose affecting acute February 07, 9:17am Advanced maternal age (AMA) in acute February 07 9:17am Pre-existing severe obesity in mother affecting acute February 07, 025 9:17am acute February 07 9:17am Rh negative state in antepartum period acute February 07 9:17am Supervision of high-risk acute February 07, 2025 9:17am Abnormal glucose affecting acute February 22, 2025 9:59am Advanced maternal age (AMA) in acute February 22, 2025 9:59am Pre-existing severe obesity in mother affecting acute February 22, 2025 9:59am acute February 22, 025 9:59am Rh negative state in antepartum period acute February 22 9:59am Supervision of high-risk acute February 22 9:59am Abnormal glucose affecting acute March 09, 2025 8:54am Advanced maternal age (AMA) in acute March 09, 2025 8:54am Breech presentation acute Augus 2024 8:54am Macrosomia affecting management of mother, antepartum acute March 09 8:54am Polyhydramnios affecting acute March 09 8:54am Pre-existing severe obesity in mother affecting acute March 09, 2025 8:54am acute March 09, 8:54am Rh negative state in antepartum period acute March 09 8:54am Supervision of high-risk acute March 09 8:54am Abnormal glucose affecting acute March 09, 2025 10:00am Advanced maternal age (AMA) in acute March 09, 2025 10:00am Breech presentation acute 2024 10:00am Macrosomia affecting management of mother, antepartum acute March 09 10:00am Polyhydramnios affecting acute March 09 10:00am Pre-existing severe obesity in mother affecting acute March 09, 2025 10:00am acute March 09, 10:00am Rh negative state in antepartum period acute March 09 10:00am Supervision of high-risk acute March 09 10:00am Breech presentation acute 2024 10:20am Macrosomia affecting management of mother, antepartum acute March 15, 025 10:20am Polyhydramnios affecting acute March 15 10:20am acute March 15, 2025 10:20am Supervision of high-risk acute March 15 10:20am Abnormal glucose affecting acute March 10:17am Advanced maternal age (AMA) in acute March 10:17am Breech presentation acute 2024 10:17am Macrosomia affecting management of mother, antepartum acute March 21 10:17am Polyhydramnios affecting acute Lola 8th, 2 025 10:17am Pre-existing severe obesity in mother affecting acute March 10:17am acute March 21, 2025 10:17am Rh negative state in antepartum period acute March 21, 2025 10:17am Supervision of high-risk acute March 21 10:17am [facility] Work Phone: [phone]) 859-865506-05-2025 Progress [facility] [address] [place] [address], [address] [place] [address] OFFICE VISIT Date of Service: 12/16/24 MR#: [id number] Acct: [id number] Name: DEMETRIUS FERNANDES Rep #: [id number] : 1990 Provider: Dr. 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 Date Name GA/Weeks Outcome Route Bth Weight Infant Gen Labor Lgth Anesthesia Del Locatn Provider FOB 04/14/21 [place] 41 live - full term 8#2oz Male epidur al [facility] GP [place] Delivery Date: 04/14/21 Last Updated [...] current plan of care details and appropriate ordersplaced. Relevant counseling for the gestational age provided. [...] NIPT-very concerned about weight with this . [facility] anatomy order placed 10/22/24 -?-?-?-?-?-?-?-?-?-?-?-?- 14w 5d 312 lb 2 oz (+3 lb 2 oz) 119/76 Negative -?-?-?-?-?-?-?-?-?-?-?-?- Negative 168 -?-?-?-?-?-?-?-?-?-?-?-?- JV- nipt was inc onclusive. plan for afp between 17-21 weeks. anatomy scan with [facility]. 11/17/24 -?-?-?-?-?-?-?-?-?-?-?-?- 18w 3d 317 lb [...] of Care, Toxoplasmosis Precations, Use of Any med ications, Sexual activity, Exercise, Dental Care, Sauna/Hot tub [...] and Symptoms of Preeclampsia, Feeding No , [place] Education and Family Medical Leave or Disability [...] Orders POC Urinalysis 2 Dip (Clinic) Today 12/16/24 0930 higinio MEDINA> Date _ Fiordaliza Zhong MD Cosign Signature: Date (if applicable) CC: ~ [facility]05-07-2025 Evaluation note* Diagnosis Onset Date Resolution Status Admit Date Advanced maternal age (AMA) in acute November 17, 2024 8: 37am Pre-existing severe obesity in mother affecting acute November 172024 8:37am acute November 17, 2024 8:37am Rh negative state in antepartum period acute November 17, 2024 8:37am Supervision of high-risk acute November 17, 2024 8: 37am Former smoker, stopped smoki ng in distant past resolved November 17, 2024 8: 37am Spider veins of both lower extremities resolved November 17, 2024 8: 37am Advanced maternal age (AMA) in acute December 16, 2024 9 :02am Pre-existing severe obesity in mother affecting acute December 16, 2024 9:02am acute December 16, 2024 9:02am Rh negative state in antepartum period acute December 16, 2024 9:02am Supervision of high-risk acute December 16, 2024 9 :02am Advanced maternal age (AMA) in acute January 12, 2025 9 :40am Pre-existing severe obesity in mother affecting acute January 12, 2025 9:40am acute January 12, 2025 9:40am Rh negative state in antepartum period acute January 12, 2025 9:40am Supervision of high-risk acute January 12, 2025 9 :40am Advanced maternal age (AMA) in acute January 24, 2025 8:22am Pre-existing severe obesity in mother affecting acute January 24, 2025 8:22am acute January 24 8:22am Rh negative state in antepartum period acute January 24 8:22am Supervision of high-risk acute January 24, 2025 8:22am Abnormal glucose affecting acute February 07, 2025 9:17am Advanced maternal age (AMA) in acute February 07, 2025 9:17am Pre-existing severe obesity in mother affecting acute February 07, 2025 9:17am acute February 07 9:17am Rh negative state in antepartum period acute February 07 9:17am Supervision of high-risk acute February 07, 2025 9:17am Abnormal glucose affecting acute February 22 9:59am Advanced maternal age (AMA) in acute February 22 9:59am Pre-existing severe obesity in mother affecting acute 2024 9:59am acute February 22 9:59am Rh negative state in antepartum period acute February 22 9:59am Supervision of high-risk acute February 22 9:59am [facility] Work Phone: 1([phone] 306-411205-07-2025 Evaluation note* Diagnosis Onset Date Resolution Status Admit Date Advanced maternal age (AMA) in acute November 17, 2024 8: 37am Pre-existing severe obesity in mother affecting acute November 172024 8:37am acute November 17, 2024 8:37am Rh negative state in antepar caroline period acute November 17, 2024 8: 37am Supervision of high-risk acute November 17, 2024 8: 37am Former smoker, stopped smoki ng in distant past resolved November 17, 2024 8: 37am Spider veins of both lower extremities resolved November 17, 2024 8: 37am Advanced maternal age (AMA) in acute December 16, 2024 9 :02am Pre-existing severe obesity in mother affecting acute December 16, 2024 9:02am acute December 16, 2024 9:02am Rh negative state in antepar caroline period acute December 16, 2024 9 :02am Supervision of high-risk acute December 16, 2024 9 :02am Advanced maternal age (AMA) in acute January 12, 2025 9 :40am Pre-existing severe obesity in mother affecting acute January 12, 2025 9:40am acute January 12, 2025 9:40am Rh negative state in antepar caroline period acute January 12, 2025 9 :40am Supervision of high-risk acute January 12, 2025 9 :40am Advanced maternal age (AMA) in acute January 24, 2025 8:22am Pre-existing severe obesity in mother affecting acute January 24, 2025 8:22am acute January 24 8:22am Rh negative state in antepar caroline period acute January 24, 2025 8:22am Supervision of high-risk acute January 24, 2025 8:22am Abnormal glucose affecting acute February 07, 2025 9:17am Advanced maternal age (AMA) in acute February 07, 2025 9:17am Pre-existing severe obesity in mother affecting acute February 07, 2025 9:17am acute February 07 9:17am Rh negative state in antepar caroline period acute February 07, 2025 9:17am Supervision of high-risk acute February 07, 2025 9:17am Abnormal glucose affecting acute February 22 9:59am Advanced maternal age (AMA) in acute February 22 9:59am Pre-existing severe obesity in mother affecting acute 2024 9:59am acute February 22, 2 025 9:59am Rh negative state in antepar caroline period acute February 22 9:59am Supervision of high-risk acute February 22 9:59am Abnormal glucose affecting acute March 09 8:54am Advanced maternal age (AMA) in acute March 09 8:54am Breech presentation acute 2024 8:54am Macrosomia affecting managem ent of mother, antepartum acute February 8:54am Polyhydramnios affecting acute March 09 8:54am Pre-existing severe obesity in mother affecting acute 2024 8:54am acute March 09, 2 025 8:54am Rh negative state in antepar caroline period acute March 09 8:54am Supervision of high-risk acute March 09 8:54am [facility] Work Phone: 1([phone] 866-274705-07-2025 Evaluation note* Diagnosis Onset Date Resolution Status Admit Date Advanced maternal age (AMA) in acute November 17, 2024 8: 37am Pre-existing severe obesity in mother affecting acute November 172024 8:37am acute November 17, 2024 8:37am Rh negative state in antepartum period acute November 17, 2024 8:37am Supervision of high-risk acute November 17, 2024 8: 37am Former smoker, stopped smoki ng in distant past resolved November 17, 2024 8: 37am Spider veins of both lower extremities resolved November 17, 2024 8: 37am Advanced maternal age (AMA) in acute December 16, 2024 9 :02am Pre-existing severe obesity in mother affecting acute December 16, 2024 9:02am acute December 16, 2024 9:02am Rh negative state in antepartum period acute December 16, 2024 9:02am Supervision of high-risk acute December 16, 2024 9 :02am Advanced maternal age (AMA) in acute January 12, 2025 9 :40am Pre-existing severe obesity in mother affecting acute January 12, 2025 9:40am acute January 12, 2025 9:40am Rh negative state in antepartum period acute January 12, 2025 9:40am Supervision of high-risk acute January 12, 2025 9 :40am Advanced maternal age (AMA) in acute January 24, 2025 8:22am Pre-existing severe obesity in mother affecting acute January 24, 2025 8:22am acute January 24 8:22am Rh negative state in antepartum period acute January 24 8:22am Supervision of high-risk acute January 24, 2025 8:22am Abnormal glucose affecting acute February 07, 2025 9:17am Advanced maternal age (AMA) in acute February 07, 2025 9:17am Pre-existing severe obesity in mother affecting acute February 07, 2025 9:17am acute February 07 9:17am Rh negative state in antepartum period acute February 07 9:17am Supervision of high-risk acute February 07, 2025 9:17am Abnormal glucose affecting acute February 22 9:59am Advanced maternal age (AMA) in acute February 22 9:59am Pre-existing severe obesity in mother affecting acute 2024 9:59am acute February 22 9:59am Rh negative state in antepartum period acute February 22 9:59am Supervision of high-risk acute February 22 9:59am Abnormal glucose affecting acute March 09 8:54am Advanced maternal age (AMA) in acute March 09 8:54am Breech presentation acute 2024 8:54am Macrosomia affecting management of mother, antepartum acute March 09 8:54am Polyhydramnios affecting acute March 09 8:54am Pre-existing severe obesity in mother affecting acute 2024 8:54am acute March 09 8:54am Rh negative state in antepartum period acute March 09 8:54am Supervision of high-risk acute March 09 8:54am Abnormal glucose affecting acute March 09 10:00am Advanced maternal age (AMA) in acute March 09 10:00am Breech presentation acute 2024 10:00am Macrosomia affecting management of mother, antepartum acute March 09 10:00am Polyhydramnios affecting acute March 09 10:00am Pre-existing severe obesity in mother affecting acute Augus 2024 10:00am acute March 09, 025 10:00am Rh negative state in antepartum period acute March 09, 10:00am Supervision of high-risk acute March 09 10:00am Breech presentation acute 2024 10:20am Macrosomia affecting management of mother, antepartum acute March 15, 025 10:20am Polyhydramnios affecting acute March 15, 10:20am acute March 15, 2025 10:20am Supervision of high-risk acute March 15, 10:20am [facility] Work Phone: 1([phone] 142-823304-11-2025 Evaluation note* Diagnosis Onset Date Resolution Status Admit Date Advanced maternal age (AMA) in acute October 22, 2024 10:13am Pre-existing severe obesity in mother affecting acute October 22, 2024 10:13am acute October 22 10:13am Rh negative state in antepartum period acute October 22 10:13am Supervision of high-risk acute October 22, 2024 10:13am Former smoker, stopped smoki ng in distant past resolved October 22, 2024 10:13am Spider veins of both lower extremities resolved October 22, 2024 10:13am Advanced maternal age (AMA) in acute November 17, 2024 8: 37am Pre-existing severe obesity in mother affecting acute November 172024 8:37am acute November 17, 2024 8:37am Rh negative state in antepartum period acute November 17, 2024 8:37am Supervision of high-risk acute November 17, 2024 8: 37am Former smoker, stopped smoki ng in distant past resolved November 17, 2024 8: 37am Spider veins of both lower extremities resolved November 17, 2024 8: 37am Advanced maternal age (AMA) in acute December 16, 2024 9 :02am Pre-existing severe obesity in mother affecting acute December 16, 2024 9:02am acute December 16, 2024 9:02am Rh negative state in antepartum period acute December 16, 2024 9:02am Supervision of high-risk acute December 16, 2024 9 :02am Advanced maternal age (AMA) in acute January 12, 2025 9 :40am Pre-existing severe obesity in mother affecting acute January 12, 2025 9:40am acute January 12, 2025 9:40am Rh negative state in antepartum period acute January 12, 2025 9:40am Supervision of high-risk acute January 12, 2025 9 :40am Advanced maternal age (AMA) in acute January 24, 2025 8:22am Pre-existing severe obesity in mother affecting acute January 24, 2025 8:22am acute January 24 8:22am Rh negative state in antepartum period acute January 24 8:22am Supervision of high-risk acute January 24, 2025 8:22am [facility] Work Phone: 1([phone] 735-496304-11-2025 Evaluation note* Diagnosis Onset Date Resolution Status Admit Date Advanced maternal age (AMA) in acute October 22, 2024 10:13am Pre-existing severe obesity in mother affecting acute October 22, 2024 10:13am acute October 22 10:13am Rh negative state in antepartum period acute October 22 10:13am Supervision of high-risk acute October 22, 2024 10:13am Former smoker, stopped smoki ng in distant past resolved October 22, 2024 10:13am Spider veins of both lower extremities resolved October 22, 2024 10:13am Advanced maternal age (AMA) in acute November 17, 2024 8: 37am Pre-existing severe obesity in mother affecting acute November 172024 8:37am acute November 17, 2024 8:37am Rh negative state in antepartum period acute November 17, 2024 8:37am Supervision of high-risk acute November 17, 2024 8: 37am Former smoker, stopped smoki ng in distant past resolved November 17, 2024 8: 37am Spider veins of both lower extremities resolved November 17, 2024 8: 37am Advanced maternal age (AMA) in acute December 16, 2024 9 :02am Pre-existing severe obesity in mother affecting acute December 16, 2024 9:02am acute December 16, 2024 9:02am Rh negative state in antepartum period acute December 16, 2024 9:02am Supervision of high-risk acute December 16, 2024 9 :02am Advanced maternal age (AMA) in acute January 12, 2025 9 :40am Pre-existing severe obesity in mother affecting acute January 12, 2025 9:40am acute January 12, 2025 9:40am Rh negative state in antepartum period acute January 12, 2025 9:40am Supervision of high-risk acute January 12, 2025 9 :40am Advanced maternal age (AMA) in acute January 24, 2025 8:22am Pre-existing severe obesity in mother affecting acute January 24, 2025 8:22am acute January 24 8:22am Rh negative state in antepartum period acute January 24 8:22am Supervision of high-risk acute January 24, 2025 8:22am Abnormal glucose affecting acute February 07, 2025 9:17am Advanced maternal age (AMA) in acute February 07, 2025 9:17am Pre-existing severe obesity in mother affecting acute February 07, 2025 9:17am acute February 07 9:17am Rh negative state in antepartum period acute February 07 9:17am Supervision of high-risk acute February 07, 2025 9:17am [facility] Work Phone: [phone] NotePap Smear Specimen AdequacyMarch 2024 11:59pmComment.Satisfactory for evaluation. No endocervical component is identified.An endocervical component is not commonly seen in the patient.[facility] A#[id number] Hospital LimaComment on above: Satisfactory for evaluation. No endocervical component is identified.An endocervical component is not commonly seen in the patient.09-23-2024 NotePap Smear Specimen AdequacyMarch 2024 11:59pmComment.Satisfactory for evaluation. No endocervical component is identified.An endocervical component is not commonly seen in the patient.[facility] A#[id number]. John of God HospitalComment on above:Satisfactory for evaluation. No endocervical component is identified.An endocervical component is not commonly seen in the patient.09-23-2024 Evaluation note* Diagnosis Onset Date Resolution Status Admit Date Advanced maternal age (AMA) in acute September 23, 2024 8:56am Former smoker, stopped smoki ng in distant past acute September 23, 2024 8:56am Pre-existing severe obesity in mother affecting acute September 23, 2024 8:56am acute September 23 8:56am Rh negative state in antepar caroline period acute September 23, 2024 8:56am Spider veins of both lower extremities acute September 23, 2024 8:56am Supervision of high-risk acute September 23, 2024 8:56am [facility] Work Phone: 1(770) 379-245203-13-2025 Evaluation note* Diagnosis Onset Date Resolution Status Admit Date Advanced maternal age (AMA) in acute September 23, 2024 8:56am Former smoker, stopped smoki ng in distant past acute September 23, 2024 8:56am Pre-existing severe obesity in mother affecting acute September 23, 2024 8:56am acute September 23 8:56am Rh negative state in antepar caroline period acute September 23, 2024 8:56am Spider veins of both lower extremities acute September 23, 2024 8:56am Supervision of high-risk acute September 23, 2024 8:56am Advanced maternal age (AMA) in acute October 22, 2024 10:13am Former smoker, stopped smoki ng in distant past acute October 22, 2024 10:13am Pre-existing severe obesity in mother affecting acute October 22, 2024 10:13am acute October 22 10:13am Rh negative state in antepar caroline period acute October 22, 2024 10:13am Spider veins of both lower extremities acute October 22, 2024 10:13am Supervision of high-risk acute October 22, 2024 10:13am Advanced maternal age (AMA) in acute November 17, 2024 8: 37am Former smoker, stopped smoki ng in distant past acute November 17, 2024 8: 37am Pre-existing severe obesity in mother affecting acute November 172024 8:37am acute November 17, 2024 8:37am Rh negative state in antepar caroline period acute November 17, 2024 8: 37am Spider veins of both lower extremities acute November 17, 2024 8: 37am Supervision of high-risk acute November 17, 2024 8: 37am [facility] Work Phone: [phone] 596-754403-13-2025 Evaluation note* Diagnosis Onset Date Resolution Status Admit Date Advanced maternal age (AMA) in acute September 23, 2024 8:56am Pre-existing severe obesity in mother affecting acute September 23, 2024 8:56am acute September 23 8:56am Rh negative state in antepartum period acute September 23 8:56am Supervision of high-risk acute September 23, 2024 8:56am Former smoker, stopped smoki ng in distant past resolved September 23, 2024 8:56am Spider veins of both lower extremities resolved September 23, 2024 8:56am Advanced maternal age (AMA) in acute October 22, 2024 10:13am Pre-existing severe obesity in mother affecting acute October 22, 2024 10:13am acute October 22 10:13am Rh negative state in antepartum period acute October 22 10:13am Supervision of high-risk acute October 22, 2024 10:13am Former smoker, stopped smoki ng in distant past resolved October 22, 2024 10:13am Spider veins of both lower extremities resolved October 22, 2024 10:13am Advanced maternal age (AMA) in acute November 17, 2024 8: 37am Pre-existing severe obesity in mother affecting acute November 172024 8:37am acute November 17, 2024 8:37am Rh negative state in antepartum period acute November 17, 2024 8:37am Supervision of high-risk acute November 17, 2024 8: 37am Former smoker, stopped smoki ng in distant past resolved November 17, 2024 8: 37am Spider veins of both lower extremities resolved November 17, 2024 8: 37am Advanced maternal age (AMA) in acute December 16, 2024 9 :02am Pre-existing severe obesity in mother affecting acute December 16, 2024 9:02am acute December 16, 2024 9:02am Rh negative state in antepartum period acute December 16, 2024 9:02am Supervision of high-risk acute December 16, 2024 9 :02am [facility] Work Phone: Evaluation noteNo assessment information available [facility] Work Phone: Hospital Discharge instructionsAdditional Instructions Scheduled non-stress tests in WP: Friday, 3 9am Friday, 9amKind[facility] Hospital [facility] Work Phone: Progress note Author Fiordaliza Zhong [facility] Note Date/Time December 16, 2024 9:30a m [facility] [address] [place] [address], [address] [place] [address] OFFICE VISIT Date of Service: 12/16/24 MR#: [id number] Acct: [id number] Name: DEMETRIUS FERNANDES Rep #: [id number] : 1990 Provider: Dr. 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 Date Name GA/Weeks Outcome Route Bth Weight Infant Gen Labor Lgth Anesthesia Del Locatn Provider FOB 04/14/21 [place] 41 live - full term 8#2oz Male epidur al [facility] GP Froilan Delivery Date: 04/14/21 Last Updated [...] NIPT-very concerned about weight with this . MFM anatomy order placed 10/22/24 -?-?-?-?-?-?-?-?-?-?-?-?- 14w 5d 312 lb 2 oz (+3 lb 2 oz) 119/76 Negative -?-?-?-?-?-?-?-?-?-?-?-?- Negative 168 -?-?-?-?-?-?-?-?-?-?-?-?- JV- nipt was inc onclusive. plan for afp between 17-21 weeks. anatomy scan with MFM. 11/17/24 -?-?-?-?-?-?-?-?-?-?-?-?- 18w 3d 317 lb 8 [...] and Symptoms of Preeclampsia, Feeding No , Education and Family Medical Leave or Disability Forms Results POC Urinalysis 2 Dip (Clinic) Office Urine Glucose Negative Last Edit by Sharon Quintnaa on 12/16/24 09: 27 Office Urine Protein [...] trimester Comment: PRR, , MEET 04/17/25, boy RAEGAN Timmy, Froilan (3) : Status: Acute Qualifiers: [...] Orders POC Urinalysis 2 Dip (Clinic) Today 12/16/24 0930 <Electronically signed by Fiordaliza sylvester MD> Date _ Fiordaliza Zhong MD Cosign Signature: Date (if applicable) CC: ~ [facility] Work Phone: Progress note Author Greg Rich [facility] Note Date/Time February 22, 2025 10 :18am [facility] [address], [address] [place] [address] OFFICE VISIT Date of Service: 02/22/25 MR#: [id number] Acct: [id number] Name: DEMETRIUS FERNANDES Rep #: [id number] : 1990 Provider: ZACHARY Rich Age/Sex: 34/F Location: [facility] Status: Signed Intake Vital Signs 01/12/25 09:43 02/07/25 09:25 02/22/25 10:03 Height 5 ft 9 in 5 ft 9 in 5 ft 9 in Weight: 338 lb 1 oz BMI 49.9 BP 132/76 H Intake Visit Reasons: 32 wk ob Chief Complaint: 32 wk OB [place] Required: No Is patient in pain?: No Allergies No Known Allergies Allergy (Verified 02/22/25 10:00) Medications ?Medication ?Instructions ?Recorded ?Confirmed ?Type multivitamin no.47-iron fum 27 1 cap PO DAILY pregnanc y 08/29/20 02/22/25 History mg-folate no.1 1 mg-dha 300 mg capsule (PNV-DHA) famotidine 40 mg tablet (Pepcid) 40 mg PO BID PRN hear tburn #30 tabs 01/12/25 02/22/25 Rx cyclobenzaprine 10 mg tablet 10 mg PO HS PRN muscle sp asm #7 02/07/25 02/22/25 Rx tabs Last Menstrual Period: 07/11/24 : No Have you fallen in the past year?: No PFSH PFSH Medical History Asthma Seasonal [...] occupational status: employed and unemployed current occupation: [employer] current occupational exposures/hazards: No pets [...] 1-2 times per week duration: 30-45 minutes/day parul/sabianism: None seatbelt use: always do you feel safe at home: Yes additional social history: - Froilan AUGUSTINE @ [facility] 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 Date Name GA/Weeks Outcome Route Bth Weight Infant Gen Labor Lgth Anesthesia Del Locat Provider FOB 04/14/21 [place] 41 live - full term 8#2oz Male epidur al [facility] GP Froilan Delivery Date: 04/14/21 Last Updated by: Simi Zarate 2nd degree laceration HPI 32 wk ob Details: DEMETRIUS FERNANDES is a 34 year old who presents for routine OB visit. OB Visit MEET Calculator Estimated Delivery Date Method Current WG Current Estimate 04/17/25 LMP (Certain) 32w 2d Other Estimates 04/14/25 Ultrasound #1 32w 5d Expected Delivery Route/Plan Labor Preferences- CB/BF classes: no labor support person: Brendan labor intervention preferences: [] pain management options preferred: epidural cut cord/dad catch: cord : yes PP control planned: discussed discussed possible routes of delivery and associated risks: [] special requests: [] Specific Issue/Plans Covid status: [] Flu vaccine: [] Tdap vaccine: given 01/24/25 Rhogam: given 01/24/25 LARC form signed: yes Problem list reviewed and updated with the most current plan of care details and appropriate orders placed. Relevant counseling for the gestational age provided. Continue routine care and follow up unless otherwise noted in visit notes/problem list details Initial Weight: 309 lb Date -?-?-?-?-?-?-?-?-?-?-?-?- EGA Weight BP Urine Prot -?-?-?-?--?-?-?-?-?-?-?-?- Glucose FHR FuHt Pres Dilation -?-?-?-?-?-?-?-?-?-?--?-?- Effaced St Visit Note 09/23/24 -?-?-?-?-?-?-?-?-?-?-?-?- 10w 4d 309 lb 4 oz (+4 oz) 121/67 -?-?-?-?-?-?-?-?-?-?-?-?- 168 -?-?-?-?-?-?-?-?-?-?-?-?- KW- CRL cons wit h dates. accepts NIPT-very concerned about weight with this KW- CRL cons with dates. acc epts NIPT-very concerned about weight with this . [facility] anatomy order placed 10/22/24 -?-?-?-?-?-?-?-?-?-?-?-?- 14w 5d 312 lb 2 oz (+3 lb 2 oz) 119/76 Negative -?-?-?-?-?-?-?-?-?-?-?-?- Negative 168 -?-?-?-?-?-?-?-?-?-?-?-?- JV- nipt was inc onclusive. plan for afp between 17-21 weeks. anatomy scan with [facility]. 11/17/24 -?-?-?-?-?-?-?-?-?-?-?-?- 18w 3d 317 lb 8 oz (+8 lb 8 oz) 126/80 Negative -?-?-?-?-?-?-?-?-?-?-?-?- Negative 148 -?-?-?-?-?-?-?-?-?-?-?-?- MH-No VB. Dao gutierrez. Denies concerns. AFP today. 12/16/24 -?-?-?-?-?-?-?-?-?-?-?-?- 22w 4d 320 lb (+11 lb) 119/69 Negative -?-?-?-?-?-?-?-?-?-?-?-?- Negative 145 -?-?-?-?-?-?-?-?-?-?-?-?- SM- no vb lof go od fm no regular ctx 01/12/25 -?-?-?-?-?-?-?-?-?-?-?-?- 26w 3d 328 lb 8 oz (+19 lb 8 oz) 130/82 Negative -?-?-?-?-?-?-?-?-?-?-?-?- Negative 147 27 -?-?-?-?-?-?-?-?-?-?-?-?- -No VB, LOF. G ood FM. -No VB, LOF. Good FM. Hear tburn more problematic. Rx sent 01/24/25 -?-?-?-?-?-?-?-?-?-?-?-?- 28w 1d 331 lb 2 oz (+22 lb 2 oz) 124/72 Negative -?-?-?-?-?-?-?-?-?-?-?-?- Negative 141 29 -?-?-?-?-?-?-?-?-?-?-?-?- -No VB, LOF. G ood Fm. Rhogam, tdap, 28wk labs pending. 02/07/25 -?-?-?-?-?-?-?-?-?-?-?-?- 30w 1d 332 lb (+23 lb) 107/71 Negative -?-?-?-?-?-?-?-?-?-?-?-?- Negative 135 32 -?-?-?-?-?-?-?-?-?-?-?-?- JV- patient comp lains of upper back/flank pain on the left. She denies dysuria, hematuria, fevers or chills. She states that when she puts pressure there it feels better. we discussed trying a chiropractor and also some flexeril this week to see if her muscles may relax enough to get better. 02/22/25 -?-?-?-?-?-?-?-?-?-?-?-?- 32w 2d 338 lb 1 oz (+29 lb 1 oz) 132/76 Negative -?-?-?-?-?-?-?-?-?-?-?--?- Negative 145 34 -?-?-?-?-?-?-?-?-?-?-?-?- KW- no vb/lof/ct x. good fm. still having upper back pain- information given for chiropractor. growth [place] end of month ACOG First Trimester First Trimester: Desire for [...] Immediate Larc, Signs and Symptoms of Preeclampsia, Infant Feeding No , [place] Education and Family Medical Leave or Disability Forms ROS Const Reports system reviewed and no additional complaints, except as documented Eyes Reports system reviewed and no additional complaints, except as documented ENT Reports system reviewed and no additional complaints, except as documented Card Reports system reviewed and no additional complaints, except as documented Resp Reports system reviewed and no additional complaints, except as documented GI Reports system reviewed and no additional complaints, except as documented, Denies nausea and Denies vomiting Reports system reviewed and no additional complaints, except as documented Musc Reports system reviewed and no additional complaints, except as documented Skin/Breast Reports system reviewed and no additional complaints, except as documented Neuro Yes system reviewed and no additional complaints, except as documented Psych Reports system reviewed and no additional complaints, except as documented Endo Reports system reviewed and no additional complaints, except as documented Dequan/Lymph Reports system reviewed and no additional complaints, except as documented Aller/Immun Reports system reviewed and no additional complaints, except as documented Exam Const General: cooperative, healthy appearing and no acute distress Orientation: alert, awake and oriented x3 Neck Neck: normal visual inspection and full ROM Resp Effort & Inspection: normal respiratory effort, able to speak in complete sentences and symmetric chest movement GI Inspection: normal to inspection Palpation: soft and other Other: gravid Skin General: no rashes or lesions noted Neuro General: patient alert, patient awake and patient oriented x3 Cognition: normal cognition Speech: speech normal Gait: normal gait Motor: muscle tone normal throughout Extrem General: normal to inspection and full ROM Psych Appearance: grossly normal Mental Status: mental status grossly normal Mood: congruent mood Affect: normal affect Speech and Movement: speech and movement normal Attitude: cooperative Thought Process: normal Thought Content: normal Judgment: judgment good Results POC Urinalysis 2 Dip (Clinic) Office Urine Glucose Negative Last Edit by Reena Chaudhari on 02/22/25 10:08 Office Urine Protein Negative Last Edit by Reena Chaudhari on 02/22/25 10:08 Coding Level of Care Code OB Routine Diagnoses Abnormal glucose affecting O99.810 Advanced maternal age (AMA) in Supervision of high risk in second trimester O09.92 Trimester: second trimester 32 weeks gestation of Z3A.32 Weeks of gestation: 32 weeks Rh negative state in antepartum period O26.899; Z67.91 Pre-existing severe obesity in mother affecting O99.210; E66.01 Assessment and Plan Assessment and Plan (1) Abnormal glucose affecting : Status: Acute Comment: nl 3 hr GTT (2) Advanced maternal age (AMA) in : Status: Acute (3) Supervision of high-risk : Status: Acute Qualifiers: Trimester: second trimester Qualified Code(s): O09.92 - Supervision of high risk , unspecified, second trimester Comment: PRR, , MEET 04/17/25, boy PC Timmy, Froilan (4) : Status: Acute Qualifiers: Weeks of gestation: 32 weeks Qualified Code(s): Z3A.32 - 32 weeks gestation of Comment: elects NIPT with gender, insufficient DNA X 2; AFP Neg. Nml anatomy. (5) Rh negative state in antepartum period: Status: Acute Comment: O-, Rhogam @ 28 wks, Given 01/24/25 (6) Pre-existing severe obesity in mother affecting : Status: Acute Comment: nl 1 tm hga1c. recommend weekly bpps 34 on, growth US 32 and 36. Orders: Orders POC Urinalysis 2 Dip (Clinic) Today Plan Details Additional Comments: ACOG trimester education reviewed and updated. see problem list details for updated plan management information and see below for orders placed at this visit. GA appropriate handout given. Clinical Quality Measures Falls Risk Screening/Assistive Devices Have you fallen in the past year?: No 02/22/25 1018 <Electronically signed by Greg heredia CNM> Date _ Greg Rich CNM Cosigner Signature: Date (if applicable) CC: ~ [facility] Work Phone: Progress note Author Fiordaliza Zhong [facility] Note Date/Time March 15, 2025 11:12am [facility] Medical Records Department [address] [place] [address] OB Triage Progress Note 03/15/25 1110 MR#: [id number] Acct: [id number] Name: DEMETRIUS FERNANDES Rep #:[id number] : 1990 34 From: Fiordaliza moctezuma MD PCP: Dr. Delmar Luna MD Status :REG CLI Y DOS: Location: [place] [address] Progress Notes Date of Service: 03/15/25 Progress Note: Patient presents for triage evaluation secondary to polyhydramnios FHT: 130-135 Moderate variability reactive no decelerations category I tracing [place]: no regular Contractions Assessment and plan: polyhydramnios 35 weeks Reactive NST, reassuring maternal and status patient discharged to home to follow-up as scheudled. See problem list details for additional plan information. Charges/Coding Procedures Urinary/Genital 52xxx-59xxx: [id number] non-stress test Interp Assessment & Plan (1) Polyhydramnios affecting : COMMENT: MIKE 36 at 34 weeks per MFM. QID glucose testing. twice weekly ANFS-BPP and NST. Consult with MFM ordered. deliver at 37 weeks (2) Macrosomia affecting management of mother, antepartum: COMMENT: EFW 3205 at 34 weeks per MFM, QID glucose testing (3) Supervision of high-risk : QUALIFIERS: Trimester: second trimester Qualified Code(s): O09.92- Supervision of high risk , unspecified, second trimester COMMENT: PRR, , MEET 04/17/25, boy PC Timmy, Froilan (4) Breech presentation: COMMENT: at 34 weeks per MFM (5) : QUALIFIERS: Weeks of gestation: 34 weeks Qualified Code(s): Z3A.34 - 34 weeks gestation of COMMENT: elects NIPT with gender, insufficient DNA X 2; AFP Neg. Nmlanatomy. 03/15/25 1112 <Electronically signed by Fiordaliza sylvester MD> Date _ Fiordaliza Zhong MD Cosigner Signature (if applicable): Date CC: Dr. eDlmar Luna MD; Dr. Fiordaliza Zhong MD ~ Signed [facility] Work Phone: Progress note Author Fiordaliza Zhong [facility] Note Date/Time March 21, 2025 11:06am [facility] [address] [place] [address], [address] [place] [address] OFFICE VISIT Date of Service: 03/21/25 MR#: [id number] Acct: [id number] Name: DEMETRIUS FERNANDES Rep #: [id number] : 1990 Provider: Dr. Luther Zhong MD Age/Sex: 34/F Location: [facility] Status: Signed Intake Vital Signs 01/24/25 08:40 03/09/25 10:29 03/15/25 10:40 03/21/25 10:29 Height 5 ft 9 in 5 ft 9 in 5 ft 9 in 5 ft 9 in Weight: 342 lb 6 oz BMI 50.5 BP 127/72 H Intake Visit Reasons: 36 wk ob [place] Required: No Is patient in pain?: No Allergies No Known Allergies Allergy (Verified 03/21/25 10:32) Medications ?Medication ?Instructions ?Recorded ?Confirmed ?Type multivitamin no.47-iron fum 27 1 cap PO DAILY pregnanc y 08/29/20 03/21/25 History mg-folate no.1 1 mg-dha 300 mg capsule (PNV-DHA) famotidine 40 mg tablet (Pepcid) 40 mg PO BID PRN hear tburn #30 tabs 01/12/25 03/21/25 Rx alcohol swabs (Alcohol Wipes) 1 pad topical DAILY #100 ea 03/07/25 03/21/25 Rx blood sugar diagnostic (Advanced #100 ea 03/07/25 09/03/07 Rx Glucose Meter Test Strips) flash glucose scanning reader #1 ea 03/07/25 03/21/25 Rx (FreeStyle Hardeep 2 [place]) lancets #200 ea 03/07/25 03/21/25 Rx Last Menstrual Period: 07/11/24 Zika: Zika [...] occupational status: employed and unemployed current occupation: [employer] current occupational exposures/hazards: No pets [...] 1-2 times per week duration: 30-45 minutes/day parul/sabianism: None seatbelt use: always do you feel safe at home: Yes additional social history: - 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 Date Name GA/Weeks Outcome Route Bth Weight Infant Gen Labor Lgth Anesthesia Del [facility] Provider FOB 04/14/21 [place] 41 live - full term 8#2oz Male epidur al [facility] GP Froilan Delivery Date: 04/14/21 Last Updated by: Simi Zarate 2nd degree laceration HPI 36 wk ob Details: DEMETRIUS FERNANDES is a 34 year old who presents for routine OB visit. OB Visit MEET Calculator Estimated Delivery Date Method Current WG Current Estimate 04/17/25 LMP (Certain) 36w 1d Other Estimates 04/14/25 Ultrasound #1 36w 4d Expected Delivery Route/Plan Labor Preferences- CB/BF classes: no labor support person: Brendan labor intervention preferences: [] pain management options preferred: epidural cut cord/dad catch: cord : yes PP control planned: discussed discussed possible routes of delivery and associated risks: [] special requests: [] Specific Issue/Plans Covid status: [] Flu vaccine: [] Tdap vaccine: given 01/24/25 Rhogam: given 01/24/25 LARC form signed: yes Problem list reviewed [...] NIPT-very concerned about weight with this . [facility] anatomy order placed 10/22/24 -?-?-?-?-?-?-?-?-?-?-?-?- 14w 5d 312 lb 2 oz (+3 lb 2 oz) 119/76 Negative -?-?-?-?-?-?-?-?-?-?-?-?- Negative 168 -?-?-?-?-?-?-?-?-?-?-?-?- JV- nipt was inc onclusive. plan for afp between 17-21 weeks. anatomy scan with [facility]. 11/17/24 -?-?-?-?-?-?-?-?-?-?-?-?- 18w 3d 317 lb 8 oz (+8 lb 8 oz) 126/80 Negative -?-?-?-?-?-?-?-?-?-?-?-?- Negative 148 -?-?-?-?-?-?-?-?-?-?-?-?- MH-No VB. Dao gutierrez. Denies concerns. AFP today. 12/16/24 -?-?-?-?-?-?-?-?-?-?-?-?- 22w 4d 320 lb (+11 lb) 119/69 Negative -?-?-?-?-?-?-?-?-?-?-?-?- Negative 145 -?-?-?-?-?-?-?-?-?-?-?-?- SM- no vb lof go od fm no regular ctx 01/12/25 -?-?-?-?-?-?-?-?-?-?-?-?- 26w 3d 328 lb 8 oz (+19 lb 8 oz) 130/82 Negative -?-?-?-?-?-?-?-?-?-?-?-?- Negative 147 27 -?-?-?-?-?-?-?-?-?-?-?-?- -No VB, LOF. G ood FM. -No VB, LOF. Good FM. Hear tburn more problematic. Rx sent 01/24/25 -?-?-?-?-?-?-?-?-?-?-?-?- 28w 1d 331 lb 2 oz (+22 lb 2 oz) 124/72 Negative -?-?-?-?-?-?-?-?-?-?-?-?- Negative 141 29 -?-?-?-?-?-?-?-?-?-?-?-?- -No VB, LOF. G ood Fm. Rhogam, tdap, 28wk labs pending. 02/07/25 -?-?-?-?-?-?-?-?-?-?-?-?- 30w 1d 332 lb (+23 lb) 107/71 Negative -?-?-?-?-?-?-?-?-?-?-?-?- Negative 135 32 -?-?-?-?-?-?-?-?-?-?-?-?- JV- patient comp lains of upper back/flank pain on the left. She denies dysuria, hematuria, fevers or chills. She states that when she puts pressure there it feels better. we discussed trying a chiropractor and also some flexeril this week to see if her muscles may relax enough to get better. 02/22/25 -?-?-?-?-?-?-?-?-?-?-?-?- 32w 2d 338 lb 1 oz (+29 lb 1 oz) 132/76 Negative -?-?-?-?-?-?-?-?-?-?-?-?- Negative 145 34 -?-?-?-?-?-?-?-?-?-?-?-?- KW- no vb/lof/ct x. good fm. still having upper back pain- information given for chiropractor. growth US end of month 03/09/25 -?-?-?-?-?-?-?-?-?-?-?-?- 34w 3d 339 lb 6 oz (+30 lb 6 oz) 136/85 Negative -?-?-?-?-?-?-?-?-?-?-?--?- Negative 141 40 -?-?-?-?-?-?-?-?-?-?-?-?- JV- MIKE is 36.2, she is monitoring her glucose levels and 2 hrpp are so far elevated in the 140's . Dr. Cerrato wants to do her bpp next week and recommends delivery (will be section for breech) at 37 weeks. she is to have weekly bpps and nsts until then. Continue glucose monitoring. 03/21/25 -?-?-?-?-?-?-?-?-?-?-?-?- 36w 1d 342 lb 6 oz (+33 lb 6 oz) 127/72 Negative -?-?-?-?-?-?-?-?-?-?-?-?- Negative 140 45 -?-?-?--?-?-?-?-?-?-?-?-?- SM - no vb lof g ood fm no reuglar ctx BS stable ACOG First Trimester First Trimester: Desire for [...] Immediate Larc, Signs and Symptoms of Preeclampsia, Infant Feeding No , Education and Family Medical Leave or Disability Forms Results POC Urinalysis 2 Dip (Clinic) Office Urine Glucose Negative Last Edit by Erick Lawler on 03/21/25 10:37 Office Urine Protein Negative Last Edit by Erick Lawler on 03/21/25 10:37 Coding Level of Care Code OB Routine Diagnoses Breech presentation O32.1XX0 Macrosomia affecting management of mother, antepartum O36.60X0 Polyhydramnios affecting O40.9XX0 Abnormal glucose affecting O99.810 Advanced maternal age (AMA) in Supervision of high risk in second trimester O09.92 Trimester: second trimester 36 weeks gestation of Z3A.36 Weeks of gestation: 36 weeks Rh negative state in antepartum period O26.899; Z67.91 Pre-existing severe obesity in mother affecting O99.210; E66.01 Assessment and Plan Assessment and Plan (1) Breech presentation: Status: Acute Comment: at 34 weeks per MFM (2) Macrosomia affecting management of mother, antepartum: Status: Acute Comment: EFW 3205 at 34 weeks per MFM, QID glucose testing (3) Polyhydramnios affecting : Status: Acute Comment: MIKE 36 at 34 weeks per MFM. QID glucose testing. twice weekly ANFS-BPP and NST. Consult with M ordered. deliver at 37 weeks scheduled for 03/28 @ 7:15 with (4) Abnormal glucose affecting : Status: Acute Comment: nl 3 hr GTT (5) Advanced maternal age (AMA) in : Status: Acute (6) Supervision of high-risk : Status: Acute Qualifiers: Trimester: second trimester Qualified Code(s): O09.92 - Supervision of high risk , unspecified, second trimester Comment: PRR, , MEET 04/17/25, boy PC Timmy, Froilan (7) : Status: Acute Qualifiers: Weeks of gestation: 36 weeks Qualified Code(s): Z3A.36 - 36 weeks gestation of Comment: elects NIPT with gender, insufficient DNA X 2; AFP Neg. Nml anatomy. (8) Rh negative state in antepartum period: Status: Acute Comment: O-, Rhogam @ 28 wks, Given 01/24/25 (9) Pre-existing severe obesity in mother affecting : Status: Acute Comment: nl 1 tm hga1c. recommend weekly bpps 34 on, growth US 32 and 36. Orders: Orders POC Urinalysis 2 Dip (Clinic) Today Culture, Group B Streptococcus Today O09.92 - Supervision of high risk , unspecified, second trimester 03/21/25 1106 <Electronically signed by Fiordaliza sylvester MD> Date _ Fiordaliza Zhong MD Cosigner Signature: Date (if applicable) CC: ~ [facility] Work Phone: Reason for referral (narrative)No reason for referral information availableWSt. John of God Hospital Work Phone: Chief Complaint and Reason for Visit Chief Complaint EORDER Chief Complaint Admit Date 10 WK NOB September 23, 2024 8:5 6am Reason for Visit Admit Date Advanced maternal age (AMA) in September 23, 2024 8:56am Former smoker, stopped smoking in distan t past September 23, 2024 8:56am Pre-existing severe obesity in mother af fecting September 23, 2024 8:56am September 23, 2024 8:5 6am Rh negative state in antepartum period M 2024 8:56am Spider veins of both lower extremities M arch 2024 8:56am Supervision of high-risk September 23, 2024 8:56am Chief Complaint Admit Date 10 WK NOB September 23, 2024 8:5 6am 14wk OB October 22, 2024 10: 13am 18wk ob November 17, 2024 8:37am Reason for Visit Admit Date Advanced maternal age (AMA) in September 23, 2024 8:56am Former smoker, stopped smoking in September 23, 2024 8:56am Pre-existing severe [...] 2024 8:37am Former smoker, stopped smoking in November 17, 2024 8:37am Pre-existing severe [...] 2024 8:56am Former smoker, stopped smoking in September 23, 2024 8:56am Spider veins of [...] stopped smoking in October 22, 2024 10:13am Spider veins of both lower extremities A pril 2024 10:13am Advanced maternal age (AMA) in November 17, 2024 8:37am Pre-existing severe obesity in mother af fecting November 17, 2024 8:37am November 17, 2024 8:37am Rh negative state in antepartum period M ay 2024 8:37am Supervision of high-risk November 172024 8:37am Former smoker, stopped smoking in November 17, 2024 8:37am Spider veins of both lower extremities M ay 2024 8:37am Advanced maternal age (AMA) in December 16, 2024 9:02am Pre-existing severe obesity in mother af fecting December 16, 2024 9:02am December 16, 2024 9:02a m Rh negative state in antepartum period J une 2024 9:02am Supervision of high-risk December 16, [...] Rh negative state in antepartum period M 2024 8:37am Supervision of high-risk November 172024 8:37am Former smoker, stopped smoking in past November 17, 2024 8:37am Spider veins of both lower extremities M ay 2024 8:37am Advanced maternal age (AMA) in December 16, 2024 9:02am Pre-existing severe obesity in mother af fecting December 16, 2024 9:02am December 16, 2024 9:02a m Rh negative state in antepartum [facility] 20[facility] 9:02am Supervision of high-risk December 16, 2024 9:02am Advanced maternal age (AMA) in January 12, 2025 9:40am Pre-existing severe obesity in mother af fecting January 12, 2025 9:40am January 12, 2025 9:40a m Rh negative state in antepartum period J michael 2024 9:40am Supervision of high-risk January 12, 2025 9:40am Advanced maternal age (AMA) in January 24, 2025 8:22am Pre-existing severe obesity in mother af fecting January 24, 2025 8:22am January 24, 2025 8:22 am Rh negative state in antepartum period J michael 2024 8:22am Supervision of high-risk January 24, 2025 8:22am Chief Complaint Admit Date 14wk OB October 22, 2024 10: 13am 18wk ob November 17, 2024 8:37am 22wk ob December 16, 2024 9:02a m 26 wk ob January 12, 2025 9:40a m 28wk ob/glucose/rhogam January 24, 2025 8 :22am Abnormal glucose complicating January 25, 2025 6:45am Chief Complaint Admit Date wk OB October 22, 2024 10: 13am 18wk ob November 17, 2024 8:37am wk ob December 16, 2024 9:02a m 26 wk ob January 12, 2025 9:40a m 28wk ob/glucose/rhogam January 24, 2025 8 :22am Abnormal glucose complicating January 25, 2025 6:45am 30wk ob February 07, 2025 9:17 am Reason for Visit Admit Date Advanced maternal age (AMA) in October 22, 2024 10:13am Pre-existing severe obesity in mother af fecting October 22, 2024 10:13am October 22, 2024 10: 13am Rh negative state in antepartum period A pri2024 10:13am Supervision of high-risk October 22, 2024 10:13am Former smoker, stopped smoking in distan t past October 22, 2024 10:13am Spider veins of both lower extremities A pril 2024 10:13am Advanced maternal age (AMA) in November 17, 2024 8:37am Pre-existing severe obesity in mother af fecting November 17, 2024 8:37am November 17, 2024 8:37am Rh negative state in antepartum period M ay 2024 8:37am Supervision of high-risk November 172024 8:37am Former smoker, stopped smoking in distan t past November 17, 2024 8:37am Spider veins of both lower extremities M ay 2024 8:37am Advanced maternal age (AMA) in December 16, 2024 9:02am Pre-existing severe obesity in mother af fecting December 16, 2024 9:02am December 16, 2024 9:02a m Rh negative state in antepartum period [facility] 2024 9:02am Supervision of high-risk December 16, 2024 9:02am Advanced maternal age (AMA) in January 12, 2025 9:40am Pre-existing severe obesity in mother af fecting January 12, 2025 9:40am January 12, 2025 9:40a m Rh negative state in antepartum period J [email or web address] 9:40am Supervision of high-risk January 12, 2025 9:40am Advanced maternal age (AMA) in January 24, 2025 8:22am Pre-existing severe obesity in mother af fecting January 24, 2025 8:22am January 24, 2025 8:22 am Rh negative state in antepartum period J [facility] 2024 8:22am Supervision of high-risk January 24, 2025 8:22am Abnormal glucose affecting Jan 9:17am Advanced maternal age (AMA) in February 07, 2025 9:17am Pre-existing severe obesity in mother af fecting February 07, 2025 9:17am February 07, 2025 9:17 am Rh negative state in antepartum period J [facility] 2024 9:17am Supervision of high-risk February 07, 2025 9:17am Chief Complaint Admit Date 18wk ob November 17, 2024 8:37am 22wk ob December 16, 2024 9:02a m 26 wk ob January 12, 2025 9:40a m 28wk ob/glucose/rhogam January 24, 2025 8 :22am Abnormal glucose complicating January 25, 2025 6:45am 30wk ob February 07, 2025 9:17 am 32 wk ob February 22, 2025 9: 59am Reason for Visit Admit Date Advanced maternal age (AMA) in November 17, 2024 8:37am Pre-existing severe obesity in mother af fecting November 17, 2024 8:37am November 17, 2024 8:37am Rh negative state in antepartum period M ay 2024 8:37am Supervision of high-risk November 172024 8:37am Former smoker, stopped smoking in distan t past November 17, 2024 8:37am Spider veins of both lower extremities M ay 2024 8:37am Advanced maternal age (AMA) in December 16, 2024 9:02am Pre-existing severe obesity in mother af fecting December 16, 2024 9:02am December 16, 2024 9:02a m Rh negative state in antepartum period [facility] 2024 9:02am Supervision of high-risk December 16, 2024 9:02am Advanced maternal age (AMA) in January 12, 2025 9:40am Pre-existing severe obesity in mother af fecting January 12, 2025 9:40am January 12, 2025 9:40a m Rh negative state in antepartum period J [facility] 2024 9:40am Supervision of high-risk January 12, 2025 9:40am Advanced maternal age (AMA) in January 24, 2025 8:22am Pre-existing severe obesity in mother af fecting January 24, 2025 8:22am January 24, 2025 8:22 am Rh negative state in antepartum period J [facility] 2024 8:22am Supervision of high-risk January 24, 2025 8:22am Abnormal glucose affecting Axel 2024 9:17am Advanced maternal age (AMA) in February 07, 2025 9:17am Pre-existing severe obesity in mother af fecting February 07, 2025 9:17am February 07, 2025 9:17 am Rh negative state in antepartum period J [facility] 2024 9:17am Supervision of high-risk February 07, 2025 9:17am Abnormal glucose affecting Aug ust 2024 9:59am Advanced maternal age (AMA) in February 22, 2025 9:59am Pre-existing severe obesity in mother af fecting February 22, 2025 9:59am February 22, 2025 9: 59am Rh negative state in antepartum period A ugust 2024 9:59am Supervision of high-risk Augus t 2024 9:59am Chief Complaint Admit Date 18wk ob November 17, 2024 8:37am 22wk ob December 16, 2024 9:02a m 26 wk ob January 12, 2025 9:40a m 28wk ob/glucose/rhogam January 24, 2025 8 :22am Abnormal glucose complicating January 25, 2025 6:45am 30wk ob February 07, 2025 9:17 am 32 wk ob February 22, 2025 9: 59am 34 wk ob March 09, 2025 8: 54am Reason for Visit Admit Date Advanced maternal age (AMA) in November 17, 2024 8:37am Pre-existing severe obesity in mother af fecting November 17, 2024 8:37am November 17, 2024 8:37am Rh negative state in antepartum period M ay 2024 8:37am Supervision of high-risk November 172024 8:37am Former smoker, stopped smoking in distan t past November 17, 2024 8:37am Spider veins of both lower extremities M ay 2024 8:37am Advanced maternal age (AMA) in December 16, 2024 9:02am Pre-existing severe obesity in mother af fecting December 16, 2024 9:02am December 16, 2024 9:02a m Rh negative state in antepartum period J une 2024 9:02am Supervision of high-risk December 16, 2024 9:02am Advanced maternal age (AMA) in January 12, 2025 9:40am Pre-existing severe obesity in mother af fecting January 12, 2025 9:40am January 12, 2025 9:40a m Rh negative state in antepartum period J michael 2024 9:40am Supervision of high-risk January 12, 2025 9:40am Advanced maternal age (AMA) in January 24, 2025 8:22am Pre-existing severe obesity in mother af fecting January 24, 2025 8:22am January 24, 2025 8:22 am Rh negative state in antepartum period J michael 2024 8:22am Supervision of high-risk January 24, 2025 8:22am Abnormal glucose affecting Axel y 2024 9:17am Advanced maternal age (AMA) in February 07, 2025 9:17am Pre-existing severe obesity in mother af fecting February 07, 2025 9:17am February 07, 2025 9:17 am Rh negative state in antepartum period J michael 2024 9:17am Supervision of high-risk February 07, 2025 9:17am Abnormal glucose affecting Aug us2024 9:59am Advanced maternal age (AMA) in February 22, 2025 9:59am Pre-existing severe obesity in mother af fecting February 22, 2025 9:59am February 22, 2025 9: 59am Rh negative state in antepartum period A ug2024 9:59am Supervision of high-risk Augus t 2024 9:59am Abnormal glucose affecting Feb ust 2024 8:54am Advanced maternal age (AMA) in March 09, 2025 8:54am Breech presentation March 09, 2025 8: 54am Macrosomia affecting management of mothe r, antepartum March 09, 2025 8:54am Polyhydramnios affecting Augus t 2024 8:54am Pre-existing severe obesity in mother af fecting March 09, 2025 8:54am March 09, 2025 8: 54am Rh negative state in antepartum period A ugust 2024 8:54am Supervision of high-risk Augus t 2024 8:54am Chief Complaint Admit Date 18wk ob November 17, 2024 8:37am 22wk ob December 16, 2024 9:02a m 26 wk ob January 12, 2025 9:40a m 28wk ob/glucose/rhogam January 24, 2025 8 :22am Abnormal glucose complicating January 25, 2025 6:45am 30wk ob February 07, 2025 9:17 am 32 wk ob February 22, 2025 9: 59am 34 wk ob March 09, 2025 8: 54am NST March 09, 2025 10 :00am Chief Complaint Admit Date 18wk ob November 17, 2024 8:37am 22wk ob December 16, 2024 9:02a m 26 wk ob January 12, 2025 9:40a m 28wk ob/glucose/rhogam January 24, 2025 8 :22am Abnormal glucose complicating January 25, 2025 6:45am 30wk ob February 07, 2025 9:17 am 32 wk ob February 22, 2025 9: 59am 34 wk ob March 09, 2025 8: 54am NST March 09, 2025 10 :00am NST March 09, 2025 8: 38pm NST March 15, 2025 10:20am NST March 15, 2025 11:10am Reason for Visit Admit Date Advanced maternal age (AMA) in November 17, 2024 8:37am Pre-existing severe obesity in mother af fecting November 17, 2024 8:37am November 17, 2024 8:37am Rh negative state in antepartum period M 2024 8:37am Supervision of high-risk November 172024 8:37am Former smoker, stopped smoking in distan t past November 17, 2024 8:37am Spider veins of both lower extremities M 2024 8:37am Advanced maternal age (AMA) in December 16, 2024 9:02am Pre-existing severe obesity in mother af fecting December 16, 2024 9:02am December 16, 2024 9:02a m Rh negative state in antepartum period J une 2024 9:02am Supervision of high-risk December 16, 2024 9:02am Advanced maternal age (AMA) in January 12, 2025 9:40am Pre-existing severe obesity in mother af fecting January 12, 2025 9:40am January 12, 2025 9:40a m Rh negative state in antepartum period J michael 2024 9:40am Supervision of high-risk January 12, 2025 9:40am Advanced maternal age (AMA) in January 24, 2025 8:22am Pre-existing severe obesity in mother af fecting January 24, 2025 8:22am January 24, 2025 8:22 am Rh negative state in antepartum period J michael 2024 8:22am Supervision of high-risk January 24, 2025 8:22am Abnormal glucose affecting Axel y 2024 9:17am Advanced maternal age (AMA) in February 07, 2025 9:17am Pre-existing severe obesity in mother af fecting February 07, 2025 9:17am February 07, 2025 9:17 am Rh negative state in antepartum period J michael 2024 9:17am Supervision of high-risk February 07, 2025 9:17am Abnormal glucose affecting Feb 9:59am Advanced maternal age (AMA) in February 22, 2025 9:59am Pre-existing severe obesity in mother af fecting February 22, 2025 9:59am February 22, 2025 9: 59am Rh negative state in antepartum period A 2024 9:59am Supervision of high-risk Febus 2024 9:59am Abnormal glucose affecting Feb ust 2024 8:54am Advanced maternal age (AMA) in March 09, 2025 8:54am Breech presentation March 09, 2025 8: 54am Macrosomia affecting management of mothe r, antepartum March 09, 2025 8:54am Polyhydramnios affecting Augus t 2024 8:54am Pre-existing severe obesity in mother af fecting March 09, 2025 8:54am March 09, 2025 8: 54am Rh negative state in antepartum period A ugust 2024 8:54am Supervision of high-risk Augus t 2024 8:54am Abnormal glucose affecting Feb ust 2024 10:00am Advanced maternal age (AMA) in March 09, 2025 10:00am Breech presentation March 09, 2025 10 :00am Macrosomia affecting management of mothe r, antepartum March 09, 2025 10:00am Polyhydramnios affecting Augus t 2024 10:00am Pre-existing severe obesity in mother af fecting March 09, 2025 10:00am March 09, 2025 10 :00am Rh negative state in antepartum period A ugust 2024 10:00am Supervision of high-risk Augus t 2024 10:00am Breech presentation March 15, 2025 10:20am Macrosomia affecting management of mothe r, antepartum March 15, 2025 10:20am Polyhydramnios affecting Septe mb 2024 10:20am March 15, 2025 10:20am Supervision of high-risk Septe mb 2024 10:20am Chief Complaint Admit Date 22wk ob December 16, 2024 9:02a m 26 wk ob January 12, 2025 9:40a m 28wk ob/glucose/rhogam January 24, 2025 8 :22am Abnormal glucose complicating January 25, 2025 6:45am 30wk ob February 07, 2025 9:17 am 32 wk ob February 22, 2025 9: 59am 34 wk ob March 09, 2025 8: 54am NST March 09, 2025 10 :00am NST March 09, 2025 8: 38pm NST March 15, 2025 10:20am NST March 15, 2025 11:10am 36 wk ob March 21, 2025 10:17am Reason for Visit Admit Date Advanced maternal age (AMA) in December 16, 2024 9:02am Pre-existing severe obesity in mother af fecting December 16, 2024 9:02am December 16, 2024 9:02a m Rh negative state in antepartum period J une 2024 9:02am Supervision of high-risk December 16, 2024 9:02am Advanced maternal age (AMA) in January 12, 2025 9:40am Pre-existing severe obesity in mother af fecting January 12, 2025 9:40am January 12, 2025 9:40a m Rh negative state in antepartum period J michael 5 9:40am Supervision of high-risk January 12, 2025 9:40am Advanced maternal age (AMA) in January 24, 2025 8:22am Pre-existing severe obesity in mother af fecting January 24, 2025 8:22am January 24, 2025 8:22 am Rh negative state in antepartum period [facility] 2024 8:22am Supervision of high-risk January 24, 2025 8:22am Abnormal glucose affecting Axel 2024 9:17am Advanced maternal age (AMA) in February 07, 2025 9:17am Pre-existing severe obesity in mother af fecting February 07, 2025 9:17am February 07, 2025 9:17 am Rh negative state in antepartum period [facility] 2024 9:17am Supervision of high-risk February 07, 2025 9:17am Abnormal glucose affecting Feb us2024 9:59am Advanced maternal age (AMA) in February 22, 2025 9:59am Pre-existing severe obesity in mother af fecting February 22, 2025 9:59am February 22, 2025 9: 59am Rh negative state in antepartum period A 2024 9:59am Supervision of high-risk Augus 2024 9:59am Abnormal glucose affecting Feb us2024 8:54am Advanced maternal age (AMA) in March 09, 2025 8:54am Breech presentation March 09, 2025 8: 54am Macrosomia affecting management of mothe r, antepartum March 09, 2025 8:54am Polyhydramnios affecting Augus t 2024 8:54am Pre-existing severe obesity in mother af fecting March 09, 2025 8:54am March 09, 2025 8: 54am Rh negative state in antepartum period A ugust 2024 8:54am Supervision of high-risk Augus t 2024 8:54am Abnormal glucose affecting Aug ust 2024 10:00am Advanced maternal age (AMA) in March 09, 2025 10:00am Breech presentation March 09, 2025 10 :00am Macrosomia affecting management of mothe r, antepartum March 09, 2025 10:00am Polyhydramnios affecting Augus t 2024 10:00am Pre-existing severe obesity in mother af fecting March 09, 2025 10:00am March 09, 2025 10 :00am Rh negative state in antepartum period A ugust 2024 10:00am Supervision of high-risk Augus t 2024 10:00am Breech presentation March 15, 2025 10:20am Macrosomia affecting management of mothe r, antepartum March 15, 2025 10:20am Polyhydramnios affecting Septe [facility] 2024 10:20am March 15, 2025 10:20am Supervision of high-risk Septe [facility] 2024 10:20am Abnormal glucose affecting Sep tem2024 10:17am Advanced maternal age (AMA) in March 21, 2025 10:17am Breech presentation March 21, 2025 10:17am Macrosomia affecting management of mothe r, antepartum March 21, 2025 10:17am Polyhydramnios affecting Septe [facility] 2024 10:17am Pre-existing severe obesity in mother af fecting March 21, 2025 10:17am March 21, 2025 10:17am Rh negative state in antepartum period S eptember 2024 10:17am Supervision of high-risk [facility] 2024 10:17am Family History Relationship Condition Age at Onset Recorded Date/T ramakrishna grandfather Diabetes mellitus Unknown uncle Aortic aneurysm Unknown Relationship Condition Age at Onset Recorded Date/T ramakrishna grandfather Diabetes mellitus Unknown uncle Aortic aneurysm Unknown grandmother Aortic aneurysm Unknown Advance Directives Advance Directive Response Recorded Date/ Time Living Will No April 13 8:08pm Power of Tissue Technologist No April 13 021 8:08pm Summary Purpose [...] Team Status: Inactive Member Role Status Dates Greg Rich CNM Attending Provider Active S tart: September 23, 2024 End: September 23, 2024 Team Status: Inactive Member Role Status Dates Greg Rich CNM Attending Provider Active S tart: September 23, 2024 End: September 23, 2024 Greg Rich CNM Referring Provider Active S tart: [...] Team Status: Inactive Member Role Status Dates Erick Rodriguez NP, FOOD SAFETY OFFICER-C Attending Provider Active Start: November 17, 2024 End: November 17, 2024 Team Status: Inactive Member Role Status Dates Erick Rodriguez NP, FOOD SAFETY OFFICER-C Attending Provider Active Start: November 17, 2024 End: November 17, 2024 Erick Rodriguze FOOD SAFETY OFFICER, FOOD SAFETY OFFICER-C Referring Provider Active Start: November 17, 2024 End: November 17, 2024 Team Status: Inactive Member Role Status Dates Dr. Fiordaliza Zhong MD Attending Provider Active Start: December 16, 2024 End: December 16, 2024 Team Status: Inactive Member Role/Relationship Status Dates Greg Rich CNM Attending Provider Active S tart: September 23, 2024 End: September 23, 2024 Team Status: Inactive Member Role/Relationship Status Dates Greg Rich CNM Attending Provider Active S tart: September 23, 2024 End: September 23, 2024 Greg Rich CNM Referring Provider Active S tart: [...] Team Status: Inactive Member Role/Relationship Status Dates Erick Rodriguez FOOD SAFETY OFFICER, FOOD SAFETY OFFICER-C Attending Provider Active Start: November 17, 2024 End: November 17, 2024 Team Status: Inactive Member Role/Relationship Status Dates Erick Rodriguez FOOD SAFETY OFFICER, FOOD SAFETY OFFICER-C Attending Provider Active Start: November 17, 2024 End: November 17, 2024 Erick Rodriguez FOOD SAFETY OFFICER, FOOD SAFETY OFFICER-C Referring Provider Active Start: November 17, 2024 End: November 17, 2024 Team Status: Inactive Member Role/Relationship Status Dates Dr. Fiordaliza Zhong MD Attending Provider Active Start: December 16, 2024 End: December 16, 2024 Team Status: Inactive Member Role/Relationship Status Dates Erick Rodriguez FOOD SAFETY OFFICER, FOOD SAFETY OFFICER-C Attending Provider Active Start: January 12, 2025 [...] Team Status: Inactive Member Role/Relationship Status Dates Erick Rodriguez FOOD SAFETY OFFICER, FOOD SAFETY OFFICER-C Attending Provider Active Start: November 17, 2024 End: November 17, 2024 Team Status: Inactive Member Role/Relationship Status Dates Erick Arguetas FOOD SAFETY OFFICER, FOOD SAFETY OFFICER-C Attending Provider Active Start: November 17, 2024 End: November 17, 2024 Erick Rodriguez FOOD SAFETY OFFICER, FOOD SAFETY OFFICER-C Referring Provider Active Start: November 17, 2024 End: November 17, 2024 Team Status: Inactive Member Role/Relationship Status Dates Dr. Fiordaliza Zhong MD Attending Provider Active Start: December 16, 2024 End: December 16, 2024 Team Status: Inactive Member Role/Relationship Status Dates Erick Rodriguez FOOD SAFETY OFFICER, FOOD SAFETY OFFICER-C Attending Provider Active Start: January 12, 2025 End: January 12, 2025 Team Status: Inactive Member Role/Relationship Status Dates Erick Rodriguez FOOD SAFETY OFFICER, FOOD SAFETY OFFICER-C Attending Provider Active Start: January 24, 2025 End: January 24, 2025 Team Status: Active Member Role/Relationship Status Dates Erick Rodriguez FOOD SAFETY OFFICER, FOOD SAFETY OFFICER-C Attending Provider Active Start: January 24, 2025 Team Status: Active Member Role/Relationship Status Dates Dr. Delmar Luna MD Primary Care Provider Acti ve Team Status: Inactive Member Role/Relationship Status Dates [...] Team Status: Inactive Member Role/Relationship Status Dates Erick Rodriguez FOOD SAFETY OFFICER, FOOD SAFETY OFFICER-C Attending Provider Active Start: November 17, 2024 End: November 17, 2024 Team Status: Inactive Member Role/Relationship Status Dates Erick Rodriguez FOOD SAFETY OFFICER, FOOD SAFETY OFFICER-C Attending Provider Active Start: November 17, 2024 End: November 17, 2024 Erick Rodriguez FOOD SAFETY OFFICER, FOOD SAFETY OFFICER-C Referring Provider Active Start: November 17, 2024 End: November 17, 2024 Team Status: Inactive Member Role/Relationship Status Dates Dr. Fiordaliza Zhong MD Attending Provider Active Start: December 16, 2024 End: December 16, 2024 Team Status: Inactive Member Role/Relationship Status Dates Erick Brooks FOOD SAFETY OFFICER, FOOD SAFETY OFFICER-C Attending Provider Active Start: January 12, 2025 End: January 12, 2025 Team Status: Inactive Member Role/Relationship Status Dates Erick Kearney FOOD SAFETY OFFICER, FOOD SAFETY OFFICER-C Attending Provider Active Start: January 24, 2025 End: January 24, 2025 Team Status: Inactive Member Role/Relationship Status Dates Reick Kearney FOOD SAFETY OFFICER, FOOD SAFETY OFFICER-C Attending Provider Active Start: January 24, 2025 End: January 24, 2025 Team Status: Active Member Role/Relationship Status Dates Erick Brooks FOOD SAFETY OFFICER, FOOD SAFETY OFFICER-C Attending Provider Active Start: January 25, 2025 Erick Kearney FOOD SAFETY OFFICER, FOOD SAFETY OFFICER-C Referring Provider Active Start: January 25, 2025 Dr. Delmar Luna MD Primary Care Provider Acti ve Start: January 25, 2025 Team Status: Inactive Member Role/Relationship Status Dates Erick Kearney FOOD SAFETY OFFICER, FOOD SAFETY OFFICER-C Attending Provider Active Start: January 25, 2025 End: January 25, 2025 Erick Brooks FOOD SAFETY OFFICER, FOOD SAFETY OFFICER-C Referring Provider Active Start: January 25, 2025 End: January 25, 2025 Dr. Delmar Luna MD Primary Care Provider Acti ve Start: January 25, 2025 End: January 25, 2025 Team Status: Inactive Member Role/Relationship Status Dates Erick Kearney FOOD SAFETY OFFICER, FOOD SAFETY OFFICER-C Attending Provider Active Start: January 25, 2025 End: January 25, 2025 Erick Kearney FOOD SAFETY OFFICER, FOOD SAFETY OFFICER-C Referring Provider Active Start: January 25, 2025 End: January 25, 2025 Dr. Delmar Luna MD Primary Care Provider Acti ve Start: January 25, 2025 End: January 25, 2025 Team Status: Inactive Member Role/Relationship Status Dates Dr. Aye Dey DO Attending Provider Activ e Start: February 07, 2025 End: February 07, 2025 Dr. Delmar Luna MD Primary Care Provider Acti ve Start: February 07, 2025 End: February 07, 2025 Dr. Delmar Luna MD Referring Provider Active Start: February 07, 2025 End: February 07, 2025 Team Status: Inactive Member Role/Relationship Status Dates Erick Brooks FOOD SAFETY OFFICER, FOOD SAFETY OFFICER-C Attending Provider Active Start: November 17, 2024 End: November 17, 2024 Team Status: Inactive Member Role/Relationship Status Dates Erick Brooks FOOD SAFETY OFFICER, FOOD SAFETY OFFICER-C Attending Provider Active Start: November 17, 2024 End: November 17, 2024 Erick Brooks FOOD SAFETY OFFICER, FOOD SAFETY OFFICER-C Referring Provider Active Start: November 17, 2024 End: November 17, 2024 Team Status: Inactive Member Role/Relationship Status Dates Dr. Fiordaliza Zhong MD Attending Provider Active Start: December 16, 2024 End: December 16, 2024 Team Status: Inactive Member Role/Relationship Status Dates Erick Brooks FOOD SAFETY OFFICER, FOOD SAFETY OFFICER-C Attending Provider Active Start: January 12, 2025 End: January 12, 2025 Team Status: Inactive Member Role/Relationship Status Dates Erick Brooks FOOD SAFETY OFFICER, FOOD SAFETY OFFICER-C Attending Provider Active Start: January 24, 2025 End: January 24, 2025 Team Status: Inactive Member Role/Relationship Status Dates Erick Kearney FOOD SAFETY OFFICER, FOOD SAFETY OFFICER-C Attending Provider Active Start: January 25, 2025 End: January 25, 2025 Erick Kearney FOOD SAFETY OFFICER, FOOD SAFETY OFFICER-C Referring Provider Active Start: January 25, 2025 End: January 25, 2025 Dr. Delmar Luna MD Primary Care Provider Acti ve Start: January 25, 2025 End: January 25, 2025 Team Status: Inactive Member Role/Relationship Status Dates Dr. Aye Dey DO Attending Provider Activ e Start: February 07, 2025 End: February 07, 2025 Dr. Delmar Luna MD Primary Care Provider Acti ve Start: February 07, 2025 End: February 07, 2025 Dr. Delmar Luna MD Referring Provider Active Start: February 07, 2025 End: February 07, 2025 Team Status: Inactive Member Role/Relationship Status Dates Greg Rich CNM Attending Provider Active S tart: February 22, 2025 End: February 22, 2025 Dr. Delmar Luna MD Primary Care Provider Acti ve Start: February 22, 2025 End: February 22, 2025 Dr. Delmar Luna MD Referring Provider Active Start: February 22, 2025 End: February 22, 2025 Team Status: Inactive Member Role/Relationship Status Dates Dr. Aye Dey DO Attending Provider Activ e Start: March 09, 2025 End: March 09, 2025 Dr. Delmar Luna MD Primary Care Provider Acti ve Start: March 09, 2025 End: March 09, 2025 Dr. Delmar Luna MD Referring Provider Active Start: March 09, 2025 End: March 09, 2025 Team Status: Inactive Member Role/Relationship Status Dates Dr. Delmar Luna MD Primary Care Provider Acti ve Start: March 09, 2025 End: March 09, 2025 Dr. Aye Dey DO Attending Provider Activ e Start: March 09, 2025 End: March 09, 2025 Dr. Aye Dey DO Referring Provider Activ e Start: March 09, 2025 End: March 09, 2025 Team Status: Active Member Role/Relationship Status Dates Dr. Delmar Luna MD Primary Care Provider Acti ve Start: March 09, 2025 Dr. Aye Dey DO Attending Provider Activ e Start: March 09, 2025 Dr. Aye Dey DO Referring Provider Activ e Start: March 09, 2025 Dr. Aye Dey DO Other Provider Active Start: March 09, 2025 Team Status: Inactive Member Role/Relationship Status Dates Dr. Delmar Luna MD Primary Care Provider Acti ve Start: March 15, 2025 End: March 15, 2025 Dr. Fiordaliza Zhong MD Attending Provider Active Start: March 15, 2025 End: March 15, 2025 Dr. Fiordaliza Zhong MD Referring Provider Active Start: March 15, 2025 End: March 15, 2025 Team Status: Active Member Role/Relationship Status Dates Dr. Delmar Luna MD Primary Care Provider Acti ve Start: March 15, 2025 Dr. Fiordaliza Zhong MD Attending Provider Active Start: March 15, 2025 Dr. Fiordaliza Zhong MD Referring Provider Active Start: March 15, 2025 Dr. Fiordaliza Zhong MD Other Provider Active Start: March 15, 2025 Team Status: Inactive Member Role/Relationship Status Dates Dr. Fiordaliza Zhong MD Attending Provider Active Start: December 16, 2024 End: December 16, 2024 Team Status: Inactive Member Role/Relationship Status Dates Erick Rodriguez FOOD SAFETY OFFICER, FOOD SAFETY OFFICER-C Attending Provider Active Start: January 12, 2025 End: January 12, 2025 Team Status: Inactive Member Role/Relationship Status Dates Erick Rodriguez FOOD SAFETY OFFICER, FOOD SAFETY OFFICER-C Attending Provider Active Start: January 24, 2025 End: January 24, 2025 Team Status: Inactive Member Role/Relationship Status Dates Erick Brooks FOOD SAFETY OFFICER, FOOD SAFETY OFFICER-C Attending Provider Active Start: January 24, 2025 End: January 24, 2025 Team Status: Inactive Member Role/Relationship Status Dates Erick Arguetas FOOD SAFETY OFFICER, FOOD SAFETY OFFICER-C Attending Provider Active Start: January 25, 2025 End: January 25, 2025 Erick Rodriguez FOOD SAFETY OFFICER, FOOD SAFETY OFFICER-C Referring Provider Active Start: January 25, 2025 End: January 25, 2025 Dr. Delmar Luna MD Primary Care Provider Acti ve Start: January 25, 2025 End: January 25, 2025 Team Status: Inactive Member Role/Relationship Status Dates Dr. Aye Dey DO Attending Provider Activ e Start: February 07, 2025 End: February 07, 2025 Dr. Delmar Luna MD Primary Care Provider Acti ve Start: February 07, 2025 End: February 07, 2025 Dr. Delmar Luna MD Referring Provider Active Start: February 07, 2025 End: February 07, 2025 Team Status: Inactive Member Role/Relationship Status Dates Greg Rich CNM Attending Provider Active S tart: February 22, 2025 End: February 22, 2025 Dr. Delmar Luna MD Primary Care Provider Acti ve Start: February 22, 2025 End: February 22, 2025 Dr. Delmar Luna MD Referring Provider Active Start: February 22, 2025 End: February 22, 2025 Team Status: Inactive Member Role/Relationship Status Dates Dr. Aye Dey DO Attending Provider Activ e Start: March 09, 2025 End: March 09, 2025 Dr. Delmar Luna MD Primary Care Provider Acti ve Start: March 09, 2025 End: March 09, 2025 Dr. Delmar Luna MD Referring Provider Active Start: March 09, 2025 End: March 09, 2025 Team Status: Inactive Member Role/Relationship Status Dates Dr. Delmar Luna MD Primary Care Provider Acti ve Start: March 09, 2025 End: March 09, 2025 Dr. Aye Dey DO Attending Provider Activ e Start: March 09, 2025 End: March 09, 2025 Dr. Aye Dey DO Referring Provider Activ e Start: March 09, 2025 End: March 09, 2025 Team Status: Active Member Role/Relationship Status Dates Dr. Delmar Luna MD Primary Care Provider Acti ve Start: March 09, 2025 Dr. Aye Dey DO Attending Provider Activ e Start: March 09, 2025 Dr. Aye Dey DO Referring Provider Activ e Start: March 09, 2025 Dr. Aye Dey DO Other Provider Active Start: March 09, 2025 Team Status: Inactive Member Role/Relationship Status Dates Dr. Delmar Luna MD Primary Care Provider Acti ve Start: March 15, 2025 End: March 15, 2025 Dr. Fiordaliza Zhong MD Attending Provider Active Start: March 15, 2025 End: March 15, 2025 Dr. Fiordaliza Zhong MD Referring Provider Active Start: March 15, 2025 End: March 15, 2025 Team Status: Active Member Role/Relationship Status Dates Dr. Delmar Luna MD Primary Care Provider Acti ve Start: March 15, 2025 Dr. Fiordaliza Zhong MD Attending Provider Active Start: March 15, 2025 Dr. Fiordaliza Zhong MD Referring Provider Active Start: March 15, 2025 Dr. Fiordaliza Zhong MD Other Provider Active Start: March 15, 2025 Team Status: Inactive Member Role/Relationship Status Dates Dr. Fiordaliza Zhong MD Attending Provider Active Start: March 21, 2025 End: March 21, 2025 Dr. Delmar Luna MD Primary Care Provider Acti ve Start: March 21, 2025 End: March 21, 2025 Dr. Delmar Luna MD Referring Provider Active Start: March 21, 2025 End: March 21, 2025 INFORMATION SOURCE (unrecogn ized section and content) DATE CREATED AUTHOR 03/17/2025 [facility] DATE CREATED AUTHOR AUTHOR'S IMER TIMOTHY 03/19/2025 [facility] FOR RECORDS PERTAINING TO PATIENTS WHO ARE [...] BE BASED ON THE PRIMARY CLINICAL RECORDS. [employer] provides no warranty or guarantee of the accuracy or completeness of information in this document.
== END | disposition home or self-care (01) ==
LOC: LABSPEC 11:21
PROVIDERS: PCP Family Medicine; Referring Provider Obstetrics & Gynecology; Visit Provider Obstetrics & Gynecology
DX: O09.92 Supervision of high risk pregnancy, unspecified, second trimester (principal); Z3A.00 Weeks of gestation of pregnancy not specified
CPT/HCPCS: 87081

== ENCOUNTER 2025-03-24 09:00 | Outpatient (CLI) | payer OTHER, SELFPAY ==
[2025-03-24 09:10] VITALS: BP 133/64; PULSE 82; BMI 51.1
--- NOTE | 2025-03-24 10:04 | OB.TRI.PN_ITS ---
Progress Notes Date of Service: 03/24/25 Progress Note: Patient presents for triage evaluation secondary to polyhydramnios FHT: 135 Moderate variability reactive no decelerations category I tracing [place]: no regular Contractions Assessment and plan: 36 weeks severe polyhydramnios Reactive NST, reassuring maternal and status patient discharged to home to follow-up as scheduled. See problem list details for additional plan information. Charges/Coding Procedures Urinary/Genital [id number]: 22121-05 non-stress test Interp
== END 2025-03-24 10:12 | disposition home or self-care (01) ==
LOC: WPOUT 09:05 → WP 09:05
PROVIDERS: PCP Family Medicine; Referring Provider Obstetrics & Gynecology; Visit Provider Obstetrics & Gynecology
DX: O40.3XX0 Polyhydramnios, third trimester, not applicable or unspecified (principal); Z3A.36 36 weeks gestation of pregnancy
CPT/HCPCS: 59025; 99221; G0378

== ENCOUNTER 2025-03-28 05:47 | Inpatient (IN) | payer OTHER, SELFPAY ==
--- NOTE | 2025-03-27 12:27 | HP.PCM_ITS ---
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: No Is patient in pain?: No Allergies No Known Allergies Allergy (Verified 03/24/25 10:32) Medications ?Medication ?Instructions ?Recorded ?Confirmed ?Type multivitamin no.47-iron fum 27 1 cap PO DAILY 08/29/20 History mg-folate no.1 1 mg-dha 300 mg capsule (PNV-DHA) famotidine 40 mg tablet (Pepcid) 40 mg PO BID PRN heartburn #30 tabs 09/0703/24/25 Rx alcohol swabs (Alcohol Wipes) 1 pad topical DAILY #100 ea 03/07/2506/07 Rx blood sugar diagnostic (Advanced #100 ea 03/07/25 03/24/25 Rx Glucose Meter Test Strips) flash glucose scanning reader #1 ea 03/07/25 03/24/25 Rx (FreeStyle Hardeep 2 [place]) lancets #200 ea 03/07/25 03/24/25 Rx Last Menstrual Period: 07/11/24 Zika: Zika virus screening: Negative : No PFSH PFSH Medical History Asthma Seasonal allergies Tilted uterus Abnormal Pap smear of cervix Surgical History History of elective History of tonsillectomy Family History Grandfather Diabetes Paternal Type 2Uncle AA (aortic aneurysm) Brain- MaternalGrandmother AA (aortic aneurysm) Paternal Social History adopted: No household members: spouse and children housing: house number of children: 1 current occupational status: employed and unemployed current occupation: [employer] current occupational exposures/hazards: No pets and animals: Yes (2) pets and animals: dog(s) and fish history of recent travel: No sexually active: Yes Smoking Status: Former smoker how long ago did patient quit smokin years ago second hand exposure: No alcohol intake: current alcohol intake frequency: holidays/special occasions only details: not while substance use type: does not use well-balanced diet: about half the time caffeine: Yes Type: coffee Number of servings: 1 eating out: 1-3 times/week during the past year weight has: increased > 10 lbs what type of physical activity do you participate in: walking frequency: 1-2 times per week duration: 30-45 minutes/day parul/confucianism: None seatbelt use: always do you feel safe at home: Yes additional social history: - [employer] @ 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 Date Name GA/Weeks Outcome Route Bth Weight Infant Gen Labor Lgth Anesthesia Del Locatn Provider FOB 04/14/21 Timmy 41 live - full term 8#2oz Mal e epidural [facility] GP Froilan Delivery Date: 04/14/21 Last Updated by: Simi Zarate 2nd degree laceration HPI 37wk ob before csection *per Details: DEMETRIUS FERNANDES is a 34 year old who presents for routine OB visit. OB Visit MEET Calculator Estimated Delivery Date Method Current WG Current Estimate 04/17/25 LMP (Certain) 36w 4d Other Estimates 04/14/25 Ultrasound #1 37w 0d Expected Delivery Route/Plan LTCS Labor Preferences- CB/BF classes: no labor support person: Brendan labor intervention preferences: [] pain management options preferred: epidural cut cord/dad catch: cord : yes PP control planned: discussed discussed possible routes of delivery and associated risks: [] special requests: [] Specific Issue/Plans Covid status: [] Flu vaccine: [] Tdap vaccine: given 01/24/25 Rhogam: given 01/24/25 LARC form signed: yes Problem list reviewed and updated with the most current plan of care details and appropriate orders placed. Relevant counseling for the gestational age provided. Continue routine care and follow up unless otherwise noted in visit notes/problem list details Initial Weight: 309 lb Date -?-?-?-?-?-?-?-?-?-?-?-?- EGA Weight BP Urine Prot -?-?-?-?-?-?-?-?-?-?-?-?- Glucose FHR FuHt Pres Dilation -?-?-?-?-?-?-?-?-?-?-?-?- Effaced St Visit Note 09/23/24-?-?-?-?-?-?-?-?-?-?-?-?- 10w 4d 309 lb 4 oz(+4 oz) 121/67 -?-?-?-?-?-?-?-?-?-?-?-?- 168 -?-?-?-?-?-?-?-?-?-?-?-?- KW- CRL cons with dates. accepts NIPT-very concerned about weight with this KW- CRL cons with dates. accepts NIPT-very concerned about weight with this . [facility] anatomy order placed 10/22/24-?-?-?-?-?-?-?-?-?-?-?-?- 14w 5d 312 lb 2 oz(+3 lb 2 oz) 119/76 Negative -?-?-?-?-?-?-?-?-?-?--?-?- Negative 168 -?-?-?-?-?-?-?-?-?-?-?-?- JV- nipt was inconclusive. plan for afp between 17-21 weeks. anatomy scan with [facility]. 11/17/24-?-?-?-?-?-?-?-?-?-?-?-?- 18w 3d 317 lb 8 oz(+8 lb 8 oz) 126/80 Negative -?-?-?-?-?-?-?-?-?-?-?-?- Negative 148 -?-?-?-?-?-?-?-?-?-?-?-?- MH-No VB. Feeling flutters. Denies concerns. AFP today. 12/16/24-?-?-?-?-?-?-?-?-?-?-?-?- 22w 4d 320 lb(+11 lb) 119/69 Negative -?-?-?-?-?-?-?-?-?-?-?-?- Negative 145 -?-?-?-?-?-?-?-?-?-?-?-?- SM- no vb lof good fm no regular ctx 01/12/25-?-?-?-?-?-?-?-?-?-?-?-?- 26w 3d 328 lb 8 oz(+19 lb 8 oz) 130/82 Negative -?-?-?-?-?-?-?-?-?-?-?-?- Negative 147 27 -?-?-?-?-?-?-?-?-?-?-?-?- -No VB, LOF. Good FM. -No VB, LOF. Good FM. Heartburn more problematic. Rx sent 01/24/25-?-?-?-?-?-?-?-?-?-?-?-?- 28w 1d 331 lb 2 oz(+22 lb 2 oz) 124/72 Negative -?-?-?-?-?-?-?-?-?-?-?-?- Negative 141 29 -?-?-?-?-?-?-?-?-?-?-?-?- -No VB, LOF. Good Fm. Rhogam, tdap, 28wk labs pending. 02/07/25-?-?-?-?-?-?-?-?-?-?-?-?- 30w 1d 332 lb(+23 lb) 107/71 Negative -?-?-?-?-?-?-?-?-?-?-?-?- Negative 135 32 -?-?-?-?-?-?-?-?-?-?-?-?- JV- patient complains of upper back/flank pain on the left. She denies dysuria, hematuria, fevers or chills. She states that when she puts pressure there it feels better. we discussed trying a chiropractor and also some flexeril this week to see if her muscles may relax enough to get better. 02/22/25-?-?-?-?-?-?-?-?-?-?-?-?- 32w 2d 338 lb 1 oz(+29 lb 1 oz) 132/76 Negative -?-?-?-?-?-?-?-?-?-?-?-?- Negative 145 34 -?-?-?-?-?-?-?-?-?-?-?-?- KW- no vb/lof/ctx. good fm. still having upper back pain- information given for chiropractor. growth US end of month 03/09/25-?-?--?-?-?-?-?-?-?-?-?-?- 34w 3d 339 lb 6 oz(+30 lb 6 oz) 136/85 Negative -?-?-?-?-?-?-?-?-?-?-?-?- Negative 141 40 -?-?-?-?-?--?-?-?-?-?-?-?- JV- MIKE is 36.2, she is monitoring her glucose levels and 2 hrpp are so far elevated in the 140's . Dr. Seymour wants to do her bpp next week and recommends delivery (will be section for breech) at 37 weeks. she is to have weekly bpps and nsts until then. Continue glucose monitoring. 03/21/25-?-?-?-?-?-?-?-?-?-?-?-?- 36w 1d 342 lb 6 oz(+33 lb 6 oz) 127/72 Negative -?-?-?-?-?-?-?-?-?-?-?-?- Negative 140 45 -?-?-?-?-?-?-?-?-?-?-?-?- SM - no vb lof good fm no reuglar ctx BS stable 03/24/25-?-?-?-?-?-?-?-?-?-?-?-?- 36w 4d 345 lb 9 oz(+36 lb 9 oz) 132/76 -?-?-?-?-?-?-?-?-?-?-?-?- 135 -?-?-?-?-?-?-?-?-?-?-?-?- SM- further questions answered, ready for csection ACOG First Trimester First Trimester: Desire for , Alcohol, Tobacco Cessation, Illicit/Recreational Drug/Substance Use, Intimate Partner Violence, Barriers to care, Unstable Housing, Communication Barriers, Environmental/Work Hazards, Anticipated Course of Care, Toxoplasmosis Precations, Use of Any medications, Sexual activity, Exercise, Dental Care, Sauna/Hot tub use, Seat Belt use, Childbirth classes/Hospital facilities, Travel, Indications for Ultrasound and Screening for Aneuploidy; Discussed Second Trimester Second Trimester: Signs and Symptoms of Labor, Selecting a care provider, Reproductive Life Planning & Contreception, Care Planning, Depression/Anxiety and Intimate Partner Violence; Discussed Tobacco Cessation Third Trimester Third Trimester: Pain Management Plans, Labor support person(s), Immediate Larc, Signs and Symptoms of Preeclampsia, Feeding No , Education and Family Medical Leave or Disability Forms ROS Const Reports system reviewed and no additional complaints, except as documented Card Reports system reviewed and no additional complaints, except as documented Resp Reports system reviewed and no additional complaints, except as documented GI Reports system reviewed and no additional complaints, except as documented and Reports nausea Reports system reviewed and no additional complaints, except as documented Musc Reports system reviewed and no additional complaints, except as documented Exam Const General: cooperative, healthy appearing, comfortable and anxious HENMT Head: normal to inspection Nose: external nose normal Face and sinus: normal facial exam Neck Neck: normal visual inspection, full ROM and no lymphadenopathy Thyroid: thyroid normal Chest Chest palpation & inspection: normal inspection of the chest Resp Effort & Inspection: normal respiratory effort GI Inspection: normal to inspection Palpation: soft and other (gravid uterus) Other: vertex and appropriate size for gestational age Other: Cervical Exam: Extrem General: pedal edema Coding Level of Care Code OB Routine Diagnoses Breech presentation O32.1XX0 Macrosomia affecting management of mother, antepartum O36.60X0 Polyhydramnios affecting O40.9XX0 Abnormal glucose affecting O99.810 Advanced maternal age (AMA) in Supervision of high risk in second trimester O09.92 Trimester: second trimester 36 weeks gestation of Z3A.36 Weeks of gestation: 36 weeks Rh negative state in antepartum period O26.899; Z67.91 Pre-existing severe obesity in mother affecting O99.210; E66.01 Assessment and Plan Assessment and Plan (1) Breech presentation: Status: Acute Comment: at 34 weeks per MFM (2) Macrosomia affecting management of mother, antepartum: Status: Acute Comment: EFW 3205 at 34 weeks per MFM, QID glucose testing (3) Polyhydramnios affecting : Status: Acute Comment: MIKE 36 at 34 weeks per MFM. QID glucose testing. twice weekly ANFS-BPP and NST. Consult with M ordered. deliver at 37 weeks scheduled for 03/28 @ 7:15 with (4) Abnormal glucose affecting : Status: Acute Comment: nl 3 hr GTT (5) Advanced maternal age (AMA) in : Status: Acute (6) Supervision of high-risk : Status: Acute Qualifiers: Trimester: second trimester Qualified Code(s): O09.92 - Supervision of high risk , unspecified, second trimester Comment: PRR, , MEET 04/17/25, boy Agustín Warner, Froilan (7) : Status: Acute Qualifiers: Weeks of gestation: 36 weeks Qualified Code(s): Z3A.36 - 36 weeks gestation of Comment: elects NIPT with gender, insufficient DNA X 2; AFP Neg. Nml anatomy. (8) Rh negative state in antepartum period: Status: Acute Comment: O-, Rhogam @ 28 wks, Given 01/24/25 (9) Pre-existing severe obesity in mother affecting : Status: Acute Comment: nl 1 tm hga1c. recommend weekly bpps 34 on, growth US 32 and 36. plan RLTCS 37 weeks recommend by [facility] due to polyhydramnios severe
[2025-03-28] VITALS (17 sets, daily range): BP systolic 96–144; BP diastolic 59–70; PULSE 61–79; RESP 16–18; TEMP 35.9–36.4; O2SAT 94–98; BMI 51.5
--- OUTSIDE RECORDS SUMMARY | 2025-03-28 05:39 | XMS RPT_ITS | CCD ---
Author Organization [facility] CliniSymn Care Team Providers Care Epic Radiant Analyst Name Role Phone Greg Rich CNM Attending Provider [phone] Greg Rich CNM Referring Provider [phone] Dr. Aye Dey DO Attending Provider Dr. Aye Dey DO Referring Provider [place] TUNG NUT GROWER-C, Erick Attending Provider [phone] [place] TUNG NUT GROWER-C, Erick Referring Provider [phone] Dr. Fiordaliza Zhong MD Attending Provider [phone] Dr. Delmar Luna MD Primary Care Provider Dr. Aye Dey DO Attending Provider Dr. Delmar Luna MD Referring Provider Dr. Aye Dey DO Attending Provider Greg Rich CNM Attending Provider [phone] Dr. Aye Dey DO Referring Provider Dr. Aye Dey DO Other Provider [phone] Dr. Fiordaliza Zhong MD Referring Provider [phone] Dr. Fiordaliza Zhong MD Other Provider [phone] Brooks TUNG NUT GROWER-C, Erick Attending Provider [place] TUNG NUT GROWER-C, Erick Referring Provider REFERRED, SELF Referring Unavailable AYE RUVALCABA Attending Unavailable DELMAR LUNA Primary Care Unavailabl e DELMAR LUNA Primary Care Unavailabl FIORDALIZA Christie Referring Unavailabl e LUCY ALVES Attending Unavailable [facility] Primary Care Unavailabl e FRANKY BADILLO Attending Unavailable REFERRED, SELF Referring Unavailable YAE RUVALCABA Attending Unavailable [facility] Primary Care Unavailabl e REFERRED, SELF Referring Unavailable GREG RICH Referring Unavailable [facility] Primary Care Unavailabl e FRANKY BADILLO Attending Unavailable GREG RICH Referring Unavailable FRANKY BADILLO Attending Unavailable [facility] Primary Care UnavailCOSTA Marino Attending Unavailable NO PRIMARY CARE, Primary Care Unavailable ERICK RODRIGUEZ Referring Unavailable GREG RICH Referring Unavailable COSTA CERRATO Attending Unavailable NO PRIMARY CARE, Primary Care Unavailable Aye Dey Att[facility] e [facility] Referring Unavailable [facility] Care Unavailable Fiordaliza Zhong Attending Unavailable Aye Dey Attending Unavailabl e [facility] Care Unavailable [facility] Referring Unavailable Fiordaliza Zhong Attending Unavailable Fiordaliza Zhong Consulting Unavailable Fiordaliza Zhong Referring Unavailable [facility] Care Unavailable [facility] Care Unavailable Fiordaliza Zhong Attending Unavailable Fiordaliza Zhong Referring Unavailable Aye Dey Attending Unavailabl e Vande VeldeAye Referring Unavailabl e [facility] Care Unavailable [facility] Care Unavailable Fiordaliza Zhong Attending Unavailable Fiordaliza Zhong Referring Unavailable Aye Dey Referring Unavailabl e Vande VeldeAye Attending [facility]availabl e [facility] Unavailable Greg Rich Attending Unavailable [facility] Referring Unavailable Fiordaliza Zhong Attending Unavailable [facility] Care Unavailable Fiordaliza Zhong Consulting Unavailable Fiordaliza Zhong Referring Unavailable Vande Aye Mcdowell Attending Unavailabl e Vande VeldeAye Consulting Unavailabl e Vande Velde, Aey Referring Unavailabl e [facility] Primary Care Unavailable [facility] Referring Unavailable [facility] Care Unavailable Fiordaliza Zhong [facility]ending [facility] Referring Unavailable Fiordaliza Zhong Attending Unavailable [facility] Primary Care Unavailable [place] TUNG NUT GROWER, Erick Attending Unavailable Fiordaliza Zhong Attending Unavailable [place] TUNG NUT GROWER, Erick Attending Unavailable [facility] Primary Care Unavailable [place] TUNG NUT GROWER, Erick Attending Unavailable [place] TUNG NUT GROWER, Erick Referring Unavailable Brooks TUNG NUT GROWER, Erick Referring Unavailable Brooks TUNG NUT GROWER, Erick Attending Unavailable [place] TUNG NUT GROWER, Erick Attending Unavailable Greg Rich Referring Unavailable Greg Rich Attending Unavailable Fiordaliza Zhong Attending Unavailable [facility] Primary Care Unavailable Fiordaliza Zhong Referring Unavailable [facility] Primary [facility] Unavailable Fiordaliza Zhong Admitting Unavailable Fiordaliza Zhong Attending Unavailable [place] TUNG NUT GROWER, Erick Attending [facility] Referring Unavailable Aye Dey Attending Unavailabl e [facility] Primary [facility] Unavailable Greg Rich Attending Unavailable Medications Current Medications Medication Drug Class(es) Dates Sig (Normalized) Sig (Original) Alcohol Swabs (Alcohol Wipes) pads, medicated (6 sources) Start: 03-07-2025 Alcohol Swabs (Alcohol Wipes) pads, medicated Active 1 NMA TOPICAL DAILY 100 0 March 07, 2025 12:00am famotidine 40 mg oral tablet (12 sources) Histamine-2 Receptor Antagonist Start: 01-12-2025 take 1 tablet by mouth twice daily as needed for gastroesophageal reflux disease Famotidine (Pepcid) 40 mg tablet Active 40 mg PO TWICE A DAY as needed for heartburn 30 3 January 12, 2025 12:00am Flash Glucose Scanning [place] (Freestyle Hardeep 2 [place]) misc (6 sources) Start: 03-07-2025 Flash Glucose Scanning [place] (Freestyle Hardeep 2 [place]) [facility] Active 0 .ROUTE .MEDSUPPLY 1 0 March 07, 2025 12:00am As directed Multivit 38-Qqgu-Utechu 1-Dha (Pnv-Dha) 27 mg iron-1 mg -300 mg capsule (18 sources) Start: 08-29-2020 Multivit 53-Rpyx-Epcxcu 1-Dha (Pnv-Dha) 27 mg iron-1 mg -300 mg capsule Active 1 NMA PO DAILY August 29, 2020 1:00am Start: 08-29-2020 Multivit 47-Ir on-Folate 1-Dha (Pnv-Dha) 27 mg iron-1 mg -300 mg capsule Active 1 NMA PO DAILY August 29, 2020 1:00am Start: 08-29-2020 take 1 capsule by mo akh once daily Multivit 92-Wylw-Tapnxz 1-Dha (Pnv-Dha) 27 mg iron-1 mg -300 mg capsule Active 1 CAP PO DAILY August 29, 2020 1:00am Completed/Discontinued Medications Medication Drug Class(es) Dates Sig (Normalized) Sig (Original) Aspirin (18 sources) Platelet Aggregation Inhibitor, Nonsteroidal Anti-inflammatory Drug [...] 12:25pm cyclobenzaprine hydrochloride 10 mg oral tablet (8 sources) Muscle Relaxant Start: 02-07-2025 End: 03-09-2025 take 1 tablet by mouth at bedtime as needed for muscle spasms Cyclobenzaprine 10 mg tablet Discontinued 10 mg PO BEDTIME as needed for muscle spasm 7 0 February 07, 2025 12:00am March 09, 2025 10:26am docusate sodium 100 mg oral capsule (16 sources) Start: 09-14-2024 End: 01-12-2025 take 1 capsule by mouth once daily Docusate Sodium (Colace) 100 mg capsule Discontinued 100 mg PO daily September 14, 2024 1:00am January 12, 2025 10:00am ibuprofen 800 mg oral tablet (18 sources) Nonsteroidal Anti-inflammatory Drug Start: 04-14-2021 End: 09-14-2024 take 1 tablet by mouth every eight hours as needed for pain Ibuprofen 800 mg tablet Discontinued 800 mg PO Q8H as needed for pain 60 1 April 14, 2021 12:00am September 14, 2024 9:24am loratadine 10 mg oral tablet (14 sources) Start: 10-22-2024 End: 01-12-2025 take 1 tablet by mouth once daily as needed Loratadine (Claritin) 10 mg tablet Discontinued 10 mg PO daily as needed October 22, 2024 12:00am January 12, 2025 10:00am omeprazole 20 mg delayed release oral capsule (18 sources) Proton Pump Inhibitor Start: 02-08-2021 End: [...] level; Translations: [Abnormal glucose complicating ] Onset: 03-17-2025 01-25-2025 Episodic Comment on above: nl 3 hr GTT Immunizations and screening for infectious disease (1 source) Encounter for immunization; Translations: [Encounter for immunization] Onset: 01-24-2025 Episodic Malposition; malpresentation (20 sources) Breech presentation; Translations: [Maternal care for breech presentation, not applicable or unspecified] Onset: 03-17-2025 03-07-2025 Episodic Comment on above: at 34 weeks per MFM Other complications of (20 sources) Severe obesity complicating ; Translations: [Obesity complicating , unspecified trimester] 09-24-2024 Chronic Comment on above: XBIH2W-0.6 nl 1 tm hga1c. recom mend weekly bpps 34 on, growth US 32 and 36. Other complications of (2 sources) Obesity complicating , unspecified trimester; Translations: [Obesity complicating , unspecified trimester] Onset: 03-17-2025 Chronic Other complications of (20 sources) RhD [...] Froilan PRR, , MEET 04/17, boy [facility] [place], Froilan PRR, , MEET 04/17, boy Agustín [facility] [place], Froilan Other complications of (20 sources) Advanced maternal age ; Translations: [Elderly multigravida, unspecified as to episode of care or not applicable] 09-14-2024 Episodic Other complications of (20 sources) Excessive growth affecting management of mother; Translations: [Maternal care for excessive growth, unspecified trimester, not applicable or unspecified] 03-07-2025 Episodic Comment on above: EFW 3205 at 34 weeks per MFM, QID glucose testing Other complications of (2 sources) Maternal care for excessive growth, unspecified trimester, not applicable or unspecified; Translations: [Maternal care for excessive growth, unspecified trimester, not applicable or unspecified] Onset: 03-17-2025 Episodic Other complications of (2 sources) Supervision of high risk , unspecified, second trimester; Translations: [Supervision of high risk , unspecified, second trimester] Onset: 03-17-2025 Episodic Other complications of (2 sources) Other specified related conditions, unspecified trimester; Translations: [Other specified related conditions, unspecified trimester] Onset: 03-17-2025 Episodic Other complications of (1 source) Supervision of elderly multigravida, third trimester; Translations: [Supervision of elderly multigravida, third trimester] Onset: 03-17-2025 Episodic Other nutritional; endocrine; and metabolic disorders (2 sources) Morbid (severe) obesity due to excess calories; Translations: [Morbid (severe) obesity due to excess calories] Onset: 03-17-2025 Chronic Other and delivery including normal (20 [...] DNA X 2; AFP Neg. Nml anatomy. Polyhydramnios and other problems of amniotic cavity (20 sources) Polyhydramnios; Translations: [Polyhydramnios, unspecified trimester, not applicable or unspecified] Onset: 03-17-2025 03-07-2025 Episodic Comment on above: MIKE 36 at 34 weeks p er MFM. QID glucose testing. twice weekly ANFS-BPP and NST. Consult with MFM ordered. deliver at 37 weeks MIKE 36 at 34 weeks p er MFM. QID glucose testing. twice weekly ANFS-BPP and NST. Consult with MFM ordered. deliver at 37 weeks scheduled for 03/28 @ 7:15 with SM Residual codes; unclassified (18 sources) Family history of cystic fibrosis; Translations: [Family history of other endocrine, nutritional and metabolic diseases] 12-29-2020 Episodic Comment on above: Brendan's 1st cousin Residual codes; unclassified (1 source) 36 weeks gestation of ; Translations: [36 weeks gestation of ] Onset: 03-24-2025 Episodic Residual codes; unclassified (2 sources) Unspecified blood type, Rh negative; Translations: [Unspecified blood type, Rh negative] Onset: 03-17-2025 Episodic Residual codes; unclassified (2 sources) 34 weeks gestation of ; Translations: [34 weeks gestation of ] Onset: 03-15-2025 Episodic Residual codes; unclassified (1 source) 32 weeks gestation of ; Translations: [32 weeks gestation of ] Onset: 02-22-2025 Episodic Past or Other Problems Problem Classification Problem Date Documented Da te Episodic/Chronic Other complications of (1 source) Supervision of elderly multigravida, first trimester; Translations: [Supervision of elderly multigravida, first trimester] Onset: 10-25-2024 Episodic Other complications of (1 source) Supervision of high risk , unspecified, unspecified trimester; Translations: [Supervision of high risk , unspecified, unspecified trimester] Onset: 09-23-2024 Episodic Other screening for suspected conditions (not mental disorders or infectious disease) (19 sources) Abnormal cervical Papanicolaou smear; Translations: [Unspecified abnormal cytological findings in specimens from cervix uteri] Onset: 11-23-2024 12-29-2020 Episodic Comment on above: pap done Residual codes; unclassified (1 source) 22 weeks gestation of ; Translations: [22 weeks gestation of ] Onset: 12-16-2024 Episodic Residual codes; unclassified (1 source) 18 weeks gestation of ; Translations: [18 weeks gestation of ] Onset: 11-17-2024 Episodic Residual codes; unclassified (1 source) 10 weeks gestation of ; Translations: [10 weeks gestation of ] Onset: 09-23-2024 Episodic Screening and history of mental health and substance abuse codes (20 sources) Ex-smoker; Translations: [Personal history of nicotine dependence] Onset: 11-17-2024 09-14-2024 Episodic Comment on above: Quit 2020 Varicose veins of lower extremity (20 sources) Bilateral spider veins of lower limbs; Translations: [Asymptomatic varicose veins of bilateral lower extremities] Onset: 11-17-2024 09-14-2024 Episodic Comment on above: upper thighs Results Test Name Value Interpretation Reference Range Facility OB Triage Progress Noteon OB Triage Progress Note [facility] Medical Records Department [address] [place] [address] OB Triage Progress Note 03/24/25 1004 MR#: [id number] Acct: [id number] Name: DEMETRIUS FERNANDES Rep #: [id number] : 1990 34 From: Fiordaliza Zhong MD PCP: Dr. Delmar Luna MD Status:REG CLI Y DOS: [id number] Progress Notes Date of Service: 03/24/25 Progress Note: Patient presents for triage evaluation secondary to polyhydramnios FHT: 135 Moderate variability reactive no decelerations category I tracing Elsa: no regular Contractions Assessment and plan: 36 weeks severe polyhydramnios Reactive NST, reassuring maternal and status patient discharged to home to follow-up as scheduled. See problem list details for additional plan information. Charges/Coding Procedures Urinary/Genital 52xxx-59xxx: 11369-40 non-stress test Interp 03/24/25 1005 Date Fiordaliza Zhong MD Cosigner Signature (if applicable): Date CC: Dr. Delmar Luna MD; Dr. Fiordaliza Zhong MD Signed Normal [facility] Bilingual Receptionist Office Visit Reporton 03-24-2025 Bilingual Receptionist Office Visit Report [facility]'s [address], [address] [place] [address] OFFICE VISIT Date of Service: 03/24/25 MR#: [id number] Acct: [id number] Name: DEMETRIUS FERNANDES Rep #: [id number] : 1990 Provider: Dr. Fiordaliza leong MD Age/Sex: 34/F Location: [facility] Status: Signed Intake Vital Signs 03/24/25 09:10 03/24/25 10:26 Height 5 ft 9 in 5 ft 9 in Weight: 345 lb 9 oz BMI 51.0 BP 132/76 H Intake Visit Reasons: 37wk ob before csection *per Sorter/Assay Tech Required: No Is patient in pain?: No Allergies No Known Allergies Allergy (Verified 03/24/25 10:32) Medications ???Medication ???Instructions ???Recorded ???Confirmed ???Type multivitamin no.47-iron fum 27 1 cap PO DAILY 08/29/20 03/24/25 History mg-folate no.1 1 mg-dha 300 mg capsule (PNV-DHA) famotidine 40 mg tablet (Pepcid) 40 mg PO BID PRN heartburn #30 tab s 01/12/25 03/24/25 Rx alcohol swabs (Alcohol Wipes) 1 pad topical DAILY #100 ea 03/24/25 Rx blood sugar diagnostic (Advanced #100 ea 03/07/25 03/24/25 Rx Glucose Meter Test Strips) flash glucose scanning reader #1 ea 03/07/25 03/24/25 Rx (FreeStyle Hardeep 2 [place]) lancets #200 ea 03/07/25 03/24/25 Rx Last Menstrual Period: 07/11/24 Zika: Zika [...] occupational status: employed and unemployed current occupation: [employer] current occupational exposures/hazards: No pets and [...] 1-2 times per week duration: 30-45 minutes/day parul/islam: None seatbelt use: always do you feel safe at home: Yes additional social history: - 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 Date Name GA/Weeks Outcome Route Bth Weight Infant Gen Labor Lgth Anesthesia Del [facility] Provider FOB 04/14/21 Timmy 41 live - full term 8#2oz Male epidural [facility] GP Forilan Delivery Date: 04/14/21 Last Updated by: Simi Zarate 2nd degree laceration HPI 37wk ob before csection *per Details: DEMETRIUS FERNANDES is a 34 year old who presents for routine OB visit. OB Visit MEET Calculator Estimated Delivery Date Method Current WG Current Estimate 04/17/25 LMP (Certain) 36w 4d Other Estimates 04/14/25 Ultrasound #1 37w 0d Expected Delivery Route/Plan LTCS Labor Preferences- CB/BF classes: no labor support [...] -???-???-???-???-???-? ??-???-???-???-???-??? -???- Effaced St Visit Note (more content not included)... Normal [facility] Rule out Beta Strep (Grp. B) on 03-23-2025 PRICE Group B Beta Streptococcus is not isolated. Normal [facility] Comment on above: Performed By: #### M 100.4850 ####[facility] [id number] [place], [address] Bilingual Receptionist Office Visit Reporton 03-21-2025 Bilingual Receptionist Office Visit Report [facility] [address], [address] [place] [address] OFFICE VISIT Date of Service: 03/21/25 MR#: [id number] Acct: [id number] Name: DEMETRIUS FERANNDES Rep #: [id number] : 1990 Provider: Dr. Fiordaliza leong MD Age/Sex: 34/F Location: [facility] Status: Signed Intake Vital Signs 01/24/25 08:40 03/09/25 10:29 03/15/25 10:40 03/21/25 10:29 Height 5 ft 9 in 5 ft 9 in 5 ft 9 in 5 ft 9 in Weight: 342 lb 6 oz BMI 50.5 BP 127/72 H Intake Visit Reasons: 36 wk ob Sorter/Assay Tech Required: No Is patient in pain?: No Allergies No Known Allergies Allergy (Verified 03/21/25 10:32) Medications ???Medication ???Instructions ???Recorded ???Confirmed ???Type multivitamin no.47-iron fum 27 1 cap PO DAILY 08/29/20 03/21/25 History mg-folate no.1 1 mg-dha 300 mg capsule (PNV-DHA) famotidine 40 mg tablet (Pepcid) 40 mg PO BID PRN heartburn #30 tab s 01/12/25 03/21/25 Rx alcohol swabs (Alcohol Wipes) 1 pad topical DAILY #100 ea 03/21/25 Rx blood sugar diagnostic (Advanced #100 ea 03/07/25 03/21/25 Rx Glucose Meter Test Strips) flash glucose scanning reader #1 ea 03/07/25 03/21/25 Rx (FreeStyle Hardeep 2 [place]) lancets #200 ea 03/07/25 03/21/25 Rx Last [...] occupational status: employed and unemployed current occupation: [employer] current occupational exposures/hazards: No pets and [...] 1-2 times per week duration: 30-45 minutes/day parul/islam: None seatbelt use: always do you feel safe at home: Yes additional social history: - 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 Date Name GA/Weeks Outcome Route Bth Weight Gen Labor Lgth Anesthesia Del Locatn Provider FOB 04/14/21 [place] 41 live - full term 8#2oz Male epidural [facility] GP Froilan Delivery Date: 04/14/21 Last Updated [...] -???-???-???-???-???-? ??-???-???-???-???-??? -???- Effaced St Visit Note (more content not included)... Normal [facility] Progress Noteon 03-21-2025 Aerial Applicator Pilot Authentication Interface Message Text Comanage Polyhydramnios- concern for GestationalDiabetes Mellitus This is a telemedicine video visit requested by the patient/guardian that was performed with the patient's location at home and the provider's location at office. Demetrius Fernandes is seen at 36w1d for comanagement of polyhydramnios- concern for Gestational Diabetes Mellitus. She denies any complaints today. Her blood glucose record was reviewed, well controlled. No need for med management at this time. History of Presenting Problem: She is unaccompanied. [...] Exam: Vitals Extended BP: (BP WNL at OB today) Number of Fetuses: 1 Movement: Present Vaginal Bleeding: Absent Cramps / Contractions: Absent Mucous Discharge: Absent Assessment/Plan: Demetrius Fernandes is a 34 y.o. at 36w1d with: Active Non-Hospital Problems Diagnosis Date Noted Polyhydramnios in third trimester 03/16/2025 MFM consult complete Recommendations: 1. Serial growth ultrasounds every 4 weeks. 2. testing 2 x per week. 3. Growth 2 weeks from last growth. 4. 37-week delivery if MIKE continues to be approximately 35 or above. 5. recommended if fetus is 4500 g estimated. 6. Additional follow-up as clinically indicated. 03/21: pt has been pattern testing due to concern for GDM. Glucose log reviewed and overall well controlled. Some random hyperglycemia noted, pt does flip between normal schedule and working third shift which makes timing difficult. No med management needed at this time. Pt is scheduled for next growth scan 03/21 (see results). Delivery scheduled with OB 03/28 (37 weeks) Kick counts reviewed and encouraged Precautions reviewed Follow up NST with OB as scheduled 03/24 Delivery as scheduled 03/28 with OB. The total time spent on patient care today 03/21/2025 was 30 minutes. -15 minutes direct patient care -15 minutes chart review and documentation [1] Outpatient Encounter Medications as of 03/21/2025 Medication Sig Dispense Refill Ferrous Sulfate (IRON PO) MV-Min-Fe Fum-FA-DHA ( 1 PO) Famotidine (PEPCID) 40 MG tablet 1 Tablet (40 mg) No facility-administered encounter medications on file as of 03/21/2025. [2] No Known Allergies [facility] Screening beta-hemolytic Str eptococcus cultureOrdered By: Fiordaliza Zhong on 03-21-2025 Beta-hemolytic Streptococcus culture Group B Beta Streptococcus is not isolated. [facility] Progress Noteon 03-16-2025 Aerial Applicator Pilot Authentication Interface Message Text Comanage Polyhydramnios- concern [...] of 03/16/2025. [2] No Known Allergies [facility] OB Triage Progress Noteon OB Triage Progress Note [facility] Medical Records Department [address] [place] [address] OB Triage Progress Note 03/15/25 1110 MR#: [id number] Acct: [id number] Name: DEMETRIUS FERNANDES Rep #: [id number] : 1990 34 From: Fiordaliza Zhong MD PCP: Dr. Delmar Luna MD Status:REG CLI Y DOS: Location: [place] [address] Progress Notes Date of Service: 03/15/25 Progress Note: Patient presents for triage evaluation secondary to polyhydramnios FHT: 130-135 Moderate variability reactive no decelerations category I tracing Elsa: no regular Contractions Assessment and plan: polyhydramnios 35 weeks Reactive NST, reassuring maternal and status patient discharged to home to follow-up as cindy. See problem list details for additional plan information. Charges/Coding Procedures Urinary/Genital 52xxx-59xxx: 73973-69 non-stress test Interp Assessment Plan (1) Polyhydramnios affecting : COMMENT: MIKE 36 at 34 weeks per MFM. QID glucose testing. twice weekly ANFS-BPP and NST. Consult with [facility] ordered. deliver at 37 weeks (2) Macrosomia affecting management of mother, antepartum: COMMENT: EFW 3205 at 34 weeks per [facility], QID glucose testing (3) Supervision of high-risk : QUALIFIERS: Trimester: second trimester Qualified Code(s): O09.92 - Supervision of high risk , unspecified, second trimester COMMENT: PRR, , MEET 04/17/25, boy RAEGAN Warner, Froilan (4) Breech presentation: COMMENT: at 34 weeks per [facility] (5) : QUALIFIERS: Weeks of gestation: 34 weeks Qualified Code(s): Z3A.34 - 34 weeks gestation of COMMENT: elects NIPT with gender, insufficient DNA X 2; AFP Neg. Nml anatomy. 03/15/25 1112 Date Fiordaliza Zhong MD Cosigner Signature (if applicable): Date CC: Dr. Delmar Luna MD; Dr. Fiordaliza Zhong MD Signed Normal [facility] Progress Noteon 03-11-2025 Aerial Applicator Pilot Authentication Interface Message Text [facility] Ultrasound Consult Note Today we discussed [...] 04/14/21 41w0d 3.685 kg M Vag-Spont Comments: [facility] NIPT not able to be calculated x2. [...] MIKE 34.2 cm. 3. Reassuring testing, BPP 8/8. 4. Limited imaging due to gestational age [...] decrease in amniotic fluid. All questions answered. [facility] CS#46 recommendations. 1. Serial growth ultrasounds every [...] -30 minutes chart review and documentation Normal [facility] - Chemistry and C hemistry - challengeOrdered By: Aye Mcdowell on 03-09-2025 Glucose Ql (U) Negative [facility] Laboratory - UrinalysisOrder ed By: Aye Mcdowell on 03-09-2025 Protein Ql (U) Negative [facility] OB Triage Physician Noteon 0 03-09-2025 OB Triage Physician Note [facility] Medical Records Department [address] [place] [address] OB Triage Physician Note 03/09/252037 MR#: [id number] Acct: [id number] Name: DEMETIRUS FERNANDES Rep #: [id number] : 1990 34 From: Aye Dey DO PCP: Dr. Delmar Luna MD Status:[facility] Location: [facility] HPI - General HPI Narrative DEMETRIUS FERNANDES, is a 34 F who presents to [facility] for an NST at 34 weeks due [...] ea 03/07/25 Unknown Rx (FreeStyle Hardeep 2 [place]) lancets #200 ea 03/07/25 Unknown Rx Allergy/AdvReac [...] occupational status: employed and unemployed current occupation: [employer] current occupational exposures/hazards: No pets [...] 1-2 times per week duration: 30-45 minutes/day parul/islam: None seatbelt use: always do you feel safe at home: Yes additional social history: - 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 Date Name GA/Weeks Outcome Route Bth Weight Infant Gen Labor Lgth Anesthesia Del Locatn Provider FOB 04/14/21 [place] 41 live - full term 8#2oz Male epidural [facility] GP Froilan Delivery Date: 04/14/21 Last Updated [...] -???-???-???-???-???-? ??- (more content not included)... Normal [facility] Bilingual Receptionist Office Visit Reporton 03-09-2025 Bilingual Receptionist Office Visit Report [facility]'s [address], [address] [place] [address] OFFICE VISIT Date of Service: 03/09/25 MR#: [id number] Acct: [id number] Name: DEMETRIUS FERNANDES Rep #: [id number] : 1990 Provider: Dr. Aye Morel DO Age/Sex: 34/F Location: [facility] Status: Signed Intake Vital Signs 01/12/25 09:43 02/22/25 10:03 03/09/25 08:54 03/09/25 08:55 Height 5 ft 9 in 5 ft 9 in 5 ft 9 in 5 ft 9 in Weight: 339 lb 6 oz BMI 50.1 BP 136/85 H Intake Visit Reasons: 34 wk ob Sorter/Assay Tech Required: No Is patient in pain?: No [...] ea 03/07/25 03/09/25 Rx (FreeStyle Hardeep 2 [place]) lancets #200 ea 03/07/25 03/09/25 Rx Last [...] occupational status: employed and unemployed current occupation: [employer] current occupational exposures/hazards: No pets [...] 1-2 times per week duration: 30-45 minutes/day parul/islam: None seatbelt use: always do you feel safe at home: Yes additional social history: - Froilan GUARDADON @ [facility] 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 Date Name GA/Weeks Outcome Route Bth Weight Infant Gen Labor Lgth Anesthesia Del Locatn Provider FOB 04/14/21 [place] 41 live - full term 8#2oz Male epidural [facility] GP Froilan Delivery Date: 04/14/21 Last Updated [...] -???- Gluc (more content not included)... Normal [facility] Laboratory - Chemistry and C hemistry - challengeOrdered By: Greg Rich on 02-22-2025 Glucose Ql (U) Negative [facility] Laboratory - UrinalysisOrder ed By: Greg Rich on 02-22-2025 Protein Ql (U) Negative [facility] Bilingual Receptionist Office Visit Reporton 02-22-2025 Bilingual Receptionist Office Visit Report [facility]'s [address], [address] [place] [address] OFFICE VISIT Date of Service: 02/22/25 MR#: [id number] Acct: [id number] Name: DEMETRIUS FERNANDES Rep #: [id number] : 1990 Provider: ZACHARY Way ams Age/Sex: 34/F Location: [facility] Status: Signed Intake Vital Signs 01/12/25 09:43 02/07/25 09:25 02/22/25 10:03 Height 5 ft 9 in 5 ft 9 in 5 ft 9 in Weight: 338 lb 1 oz BMI 49.9 BP 132/76 H Intake Visit Reasons: 32 wk ob Chief Complaint: 32 wk OB Sorter/Assay Tech Required: No Is patient in pain?: No [...] occupational status: employed and unemployed current occupation: [employer] current occupational exposures/hazards: No pets and [...] 1-2 times per week duration: 30-45 minutes/day parul/islam: None seatbelt use: always do you feel safe at home: Yes additional social history: - 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 Date Name GA/Weeks Outcome Route Bth Weight Gen Labor Lgth Anesthesia [place] Provider FOB 04/14/21 [place] 41 live - full term 8#2oz Male epidural [facility] GP Froilan Delivery Date: 04/14/21 Last Updated [...] cons with (more content not included)... Normal [facility] Laboratory - Chemistry and C hemistry - challengeOrdered By: Aye Mcdowell on 02-07-2025 Glucose Ql (U) Negative [facility] Laboratory - UrinalysisOrder ed By: Aye Mcdowell on 02-07-2025 Protein Ql (U) Negative [facility] Bilingual Receptionist Office Visit Reporton 02-07-2025 Bilingual Receptionist Office Visit Report [facility] [address], [address] [place] [address] OFFICE VISIT Date of Service: 02/07/25 MR#: [id number] Acct: [id number] Name: DEMETRIUS FERNANDES Rep #: [id number] : 1990 Provider: Dr. Aye Morel DO Age/Sex: 34/F Location: [facility] Status: Signed Intake Vital Signs 12/16/24 09:30 01/24/25 08:40 02/07/25 09:25 02/07/25 09:25 Height 5 ft 9 in 5 ft 9 in 5 ft 9 in 5 ft 9 in Weight: 332 lb BMI 49.0 BP 107/71 Intake Visit Reasons: 30wk ob Sorter/Assay Tech Required: No Is patient in pain?: No [...] occupational status: employed and unemployed current occupation: [employer] current occupational exposures/hazards: No pets and [...] 1-2 times per week duration: 30-45 minutes/day parul/islam: None seatbelt use: always do you feel safe at home: Yes additional social history: - 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 Date Name GA/Weeks Outcome Route Bth Weight Gen Labor Lgth Anesthesia Del Locatn Provider FOB 04/14/21 [place] 41 live - full term 8#2oz Male epidural [facility] GP Froilan Delivery Date: 04/14/21 Last Updated [...] -???- K (more content not included)... Normal [facility] Gestational GTT 3HR 100gon 0 01-25-2025 GEST GTT 100gm Normal [facility] Comment on above: Order Comment: Y Result Comment: FAST ING 91 Col: 01/25/25 0649 GLUCOSE TOLERANCE TEST FOR Reference Interval GESTATIONAL DIABETES Fasting <105 mg/dL 1 hour <190 mg/dl 2 hour <165 mg/dl 3 hour <145 mg/dl 1 HR GLU 151 Col: 01/25/25 0829 2 HR GLU 126 Col: 01/25/25 0926 3 HR GLU 117 Col: 01/25/25 1025 Performed By: #### L 500.4710 ####[facility] [address] [place], [place], [address] Quantitative serum or plasma 3 hour gestational glucose tolerance panelOrdered By: Erick Rodriguez on 01-25-2025 Glucose tolerance 3 hours gestational panel See comment [facility] Comment on above: FASTING 91 Col: 01/11 12/05 0649GLUCOSE TOLERANCE TEST FOR Reference Interval GESTATIONAL DIABETES Fasting <105 mg/dL 1 hour <190 mg/dl 2 hour <165 mg/dl 3 hour <145 mg/dl 1 HR GLU 151 Col: 01/25/25 0829 2 HR GLU 126 Col: 01/25/25 0926 3 HR GLU 117 Col: 01/25/25 1025 Absolute lymphocyte countOrd ered By: Erick Rodriguez on 01-24-2025 Lymphocytes Auto (Unsp spec) [#/Vol] 2.28 10*3/uL 0.83-4.51 [facility] Absolute neutrophil countOrd ered By: Erick Rodriguez on 01-24-2025 Neutrophils (Bld) [#/Vol] 10.3 10*3/uL High 2.0-7.7 [facility] Automated lymphocyte count a s percentage of total leukocytesOrdered By: Erick Rodriguez on 01-24-2025 Lymphocytes/100 WBC Auto (Unsp spec) 16.6 % Low 19-41 [facility] Basophil percentageOrdered B y: Erick Rodriguez on 01-24-2025 Basophils/100 WBC (Bld) 0.3 % 0-1 [facility] CBC W/Diff, Automatedon 01-11 Absolute Lymph 2.28 X10 3/uL Normal 0.83-4.51 [facility] Comment on above: Performed By: #### L 501.0250, L509.8002, L3890.6006, BTS, L100.0100 ####[facility] [address] [place], [address] Absolute Neut 10.3 X10 3/uL High 2.0-7.7 [facility] Comment on above: Performed By: #### L 501.0250, L509.8002, L3890.6006, BTS, L100.0100 ####[facility] [address] [place], [address] Basophils/100 WBC (Bld) 0.3 % Normal 0-1 [facility] Comment on above: Performed By: #### L 501.0250, L509.8002, L3890.6006, BTS, L100.0100 ####[facility] [address] [place], [address] Eosinophils/100 WBC (Bld) 0.9 % Normal 0-5 [facility] Comment on above: Performed By: #### L 501.0250, L509.8002, L3890.6006, BTS, L100.0100 ####[facility] [address] [place], [address] Erythrocyte distribution width (RBC) [Ratio] 15.7 % High 11.6-14.6 [facility] Comment on above: Performed By: #### L 501.0250, L509.8002, L3890.6006, BTS, L100.0100 ####[facility] [address] [place], [address] Hematocrit (Bld) [Volume fraction] 33.4 % Low 37-47 [facility] Comment on above: Performed By: #### L 501.0250, L509.8002, L3890.6006, BTS, L100.0100 ####[facility] [address] [place], [address] Hemoglobin (Bld) [Mass/Vol] 10.6 g/dL Low 12.0-15.0 [facility] Comment on above: Performed By: #### L 501.0250, L509.8002, L3890.6006, BTS, L100.0100 ####[facility] [address] [place], [address] IG% 0.700 Normal 0.0-0.9 [facility] Comment on above: Result Comment: IG% - Immature Granulocytes (promyelocytes, myelocytes and metamyelocytes) > 1% indicates that a LEFT SHIFT is Present. Performed By: #### L 501.0250, L509.8002, L3890.6006, BTS, L100.0100 ####[facility] [address] [place], [address] Lymphocytes/100 WBC (Bld) 16.6 % Low 19-41 [facility] Comment on above: Performed By: #### L 501.0250, L509.8002, L3890.6006, BTS, L100.0100 ####[facility] [address] [place], [address] MCH (RBC) [Entitic mass] 27.1 pg Normal 27.0-32.0 [facility] Comment on above: Performed By: #### L 501.0250, L509.8002, L3890.6006, BTS, L100.0100 ####[facility] [address] [place], [address] MCHC (RBC) [Mass/Vol] 31.7 g/dL Low 32-36 [facility] Comment on above: Performed By: #### L 501.0250, L509.8002, L3890.6006, BTS, L100.0100 ####[facility] [address] [place], [address] MCV (RBC) [Entitic vol] 85.4 fL Normal 81-99 [facility] Comment on above: Performed By: #### L 501.0250, L509.8002, L3890.6006, BTS, L100.0100 ####[facility] [address] [place], [address] Monocytes/100 WBC (Bld) 6.5 % Normal 0-10 [facility] Comment on above: Performed By: #### L 501.0250, L509.8002, L3890.6006, BTS, L100.0100 ####[facility] [address] [place], [address] Neutrophils/100 WBC (Bld) 75.0 % High 47-70 [facility] Comment on above: Performed By: #### L 501.0250, L509.8002, L3890.6006, BTS, L100.0100 ####[facility] [address] [place], [address] Nucleated RBC (Bld) [#/Vol] 0 10*3/uL Normal 0-5 [facility] Comment on above: Performed By: #### L 501.0250, L509.8002, L3890.6006, BTS, L100.0100 ####[facility] [address] [place], [address] Platelet mean volume (Bld) [Entitic vol] 10.7 fL Normal 6.2-12.0 [facility] Comment on above: Performed By: #### L 501.0250, L509.8002, L3890.6006, BTS, L100.0100 ####[facility] [address] [place], [address] Platelets (Bld) [#/Vol] 262 10*3/uL Normal 150-450 [facility] Comment on above: Performed By: #### L 501.0250, L509.8002, L3890.6006, BTS, L100.0100 ####[facility] [address] [place], [address] RBC (Bld) [#/Vol] 3.91 10*6/uL Low 4.2-5.4 [facility] Comment on above: Performed By: #### L 501.0250, L509.8002, L3890.6006, BTS, L100.0100 ####[facility] [address] [place], [address] RDW SD 48.2 fl High 35.1-43.9 [facility] Comment on above: Performed By: #### L 501.0250, L509.8002, L3890.6006, BTS, L100.0100 ####[facility] [address] [place], [address] WBC (Bld) [#/Vol] 13.8 10*3/uL High 4.4-11.0 [facility] Comment on above: Performed By: #### L 501.0250, L509.8002, L3890.6006, BTS, L100.0100 ####[facility] [address] [place], [address] Eosinophil percentageOrdered By: Erick Rodriguez on 01-24-2025 Eosinophils/100 WBC (Bld) 0.9 % 0-5 [facility] Erythrocyte distribution wid th ratioOrdered By: Erick Rodriguez on 01-24-2025 Erythrocyte distribution width (RBC) [Ratio] 15.7 % High 11.6-14.6 [facility] Erythrocyte distribution wid th standard deviationOrdered By: Erickpatti Rodriguez on 01-24-2025 Erythrocyte distribution width (RBC) [Ratio] 48.2 fl High 35.1-43.9 [facility] Glucose Challenge Gest 1H 50 ender 01-24-2025 GLU GEST 50g 1H 150 mg/dL High 70-140 [facility] Comment on above: Performed By: #### L 501.0250, L509.8002, L3890.6006, BTS, L100.0100 ####[facility] [address] [place], [place], [id number] Glucose measurement at 2 lauro rs post-dose gestational glucose tolerance testOrdered By: Erick Rodriguez on 01-24-2025 Glucose [Mass/Vol] 150 mg/dL High 70-140 [facility] HIVon 01-24-2025 HIV Non-Reactive Normal Nonreactive [facility] Comment on above: Result Comment: Non- Reactive Reactive Repeatedly reactive samples must be confirmed according to CDC recommended confirmatory algorithms. The subresults for either HIVAG or AHIV can be used as an aid in the selection of the confirmation algorithm for reactive samples. Send out specimens with Reactive results to [facility] for confirmation. Order the HIV antibody detection and differentiation: #[id number] Performed By: #### L 501.0250, L509.8002, L3890.6006, BTS, L100.0100 ####[facility] [address] [place], [place], [address] Hematocrit Auto (Bld) [Volum e fraction]Ordered By: Erick Rodriguez on 01-24-2025 Hematocrit (Bld) [Volume fraction] 33.4 % Low 37-47 [facility] Hemoglobin measurementOrdere d By: Erick Rodriguez on 01-24-2025 Hemoglobin (Bld) [Mass/Vol] 10.6 g/dL Low 12.0-15.0 [facility] Immature granulocytes/100 WB C Auto (Bld)Ordered By: Erick Rodriguez on 01-24-2025 Immature granulocytes/100 WBC (Bld) 0.700 % 0.0-0.9 [facility] Comment on above: IG% - Immature Granu locytes (promyelocytes, myelocytes and metamyelocytes) > 1% indicates that a LEFT SHIFT is Present. Laboratory - Chemistry and C hemistry - challengeOrdered By: Erick Rodriguez on 01-24-2025 Glucose Ql (U) Negative [facility] Laboratory - UrinalysisOrder ed By: Erick Rodriguez on 01-24-2025 Protein Ql (U) Negative [facility] MCV (mean corpuscular volume ) determinationOrdered By: Erick Rodriguez on 01-24-2025 MCV (RBC) [Entitic vol] 85.4 fL 81-99 [facility] Mean corpuscular hemoglobin (MCH) determinationOrdered By: Erick Rodriguez on 01-24-2025 MCH (RBC) [Entitic mass] 27.1 pg 27.0-32.0 [facility] Mean corpuscular hemoglobin concentration (MCHC) determinationOrdered By: Erick Rodriguez on 01-24-2025 MCHC (RBC) [Mass/Vol] 31.7 g/dL Low 32-36 [facility] Mean platelet volume determi nationOrdered By: Eirck Rodriguez on 01-24-2025 Platelet mean volume (Bld) [Entitic vol] 10.7 fL 6.2-12.0 [facility] Monocyte percentageOrdered B y: Erick Rodriguez on 01-24-2025 Monocytes/100 WBC (Bld) 6.5 % 0-10 [facility] Neutrophil percentageOrdered By: Erick Rodriguez on 01-24-2025 Neutrophils/100 WBC (Bld) 75.0 % High 47-70 [facility] No Panel InformationOrdered By: Erick Rodriguez on 01-24-2025 HIV (1&2) Antibody Non-Reactive Nonreactive [facility] Comment on above: Non-ReactiveReactive Repeatedly reactive samples must be confirmed according to CDC recommended confirmatory algorithms. The subresults for either HIVAG or AHIV can be used as an aid in the selection of the confirmation algorithm for reactive samples.Send out specimens with Reactive results to [facility] for confirmation.Order the HIV antibody detection and differentiation: #[id number] Nucleated red blood cell per centageOrdered By: Erick Rodriguez on 01-24-2025 Nucleated RBC/100 WBC (Bld) [Ratio] 0 % 0-5 [facility] Bilingual Receptionist Office Visit Reporton 01-24-2025 Bilingual Receptionist Office Visit Report [facility]'s [address], [address] [place] [address] OFFICE VISIT Date of Service: 01/24/25 MR#: [id number] Acct: [id number] Name: DEMETRIUS FERNANDES Rep #: [id number] : 1990 Provider: MARY JANE godoy Age/Sex: 34/F Location: [facility] Status: Signed Intake Vital Signs 12/16/24 09:30 01/12/25 09:43 01/24/25 08:30 01/24/25 08:40 Height 5 ft 9 in 5 ft 9 in 5 ft 9 in 5 ft 9 in Weight: 331 lb 2 oz BMI 48.9 BP 124/72 H Intake Visit Reasons: 28wk ob/glucose/rhogam Chief Complaint: 28 Week OB/Rhogam Sorter/Assay Tech Required: No Is patient in pain?: No [...] occupational status: employed and unemployed current occupation: [employer] current occupational exposures/hazards: No pets and [...] 1-2 times per week duration: 30-45 minutes/day parul/islam: None seatbelt use: always do you feel safe at home: Yes additional social history: - 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 Date Name GA/Weeks Outcome Route Bth Weight Infant Gen Labor Lgth Anesthesia Del Locatn Provider FOB 04/14/21 [place] 41 live - full term 8#2oz Male epidural [facility] GP Froilan Delivery Date: 04/14/21 Last Updated [...] dates. ac (more content not included)... Normal [facility] Platelet countOrdered By: Lalo Rodriguez on 01-24-2025 Platelets (Bld) [#/Vol] 262 10*3/uL 150-450 [facility] RBC Auto (Bld) [#/Vol]Ordere d By: Erick Rodriguez on 01-24-2025 RBC (Bld) [#/Vol] 3.91 10*6/uL Low 4.2-5.4 [facility] Syphilis Antibodieson 2024 Syphilis Abs Non-Reactive Normal Nonreactive [facility] Comment on above: Performed By: #### L 501.0250, L509.8002, L3890.6006, BTS, L100.0100 ####[facility] [address] [place], [place], [address] Type AND Screenon 01-24-2025 ABO and Rh group Nom (Bld) Blood group O Rh(D) negative Normal [facility] Comment on above: Order Comment: PN Performed By: #### L 501.0250, L509.8002, L3890.6006, BTS, L100.0100 ####[facility] [address] [place], [place], [address] White blood cell (WBC) count Ordered By: Erick Rodriguez on 01-24-2025 WBC (Bld) [#/Vol] 13.8 10*3/uL High 4.4-11.0 [facility] Laboratory - Chemistry and C hemistry - challengeOrdered By: Erick Rodriguez on 01-12-2025 Glucose Ql (U) Negative [facility] Laboratory - UrinalysisOrder ed By: Erick Rodriguez on 01-12-2025 Protein Ql (U) Negative [facility] Bilingual Receptionist Office Visit Reporton 01-12-2025 Bilingual Receptionist Office Visit Report [address], [address] [place] [address] OFFICE VISIT Date of Service: 01/12/25 MR#: [id number] Acct: [id number] Name: DEMETRIUS FERNANDES Alicia Rep #: [id number] : 1990 Provider: MARY JANE godoy Age/Sex: 34/F Location: [facility] Status: Signed Intake Vital Signs 11/17/24 08:40 12/16/24 09:30 01/12/25 09:43 Height 5 ft 9 in 5 ft 9 in 5 ft 9 in Weight: 328 lb 8 oz BMI 48.4 BP 130/82 H Intake Visit Reasons: 26 wk ob Chief Complaint: 26 Week OB Sorter/Assay Tech Required: No Is patient in pain?: No [...] occupational status: employed and unemployed current occupation: [employer] current occupational exposures/hazards: No pets [...] 1-2 times per week duration: 30-45 minutes/day parul/islam: None seatbelt use: always do you feel [...] Lgth Anesthesia Del Locatn Provider FOB 04/14/21 [place] 41 live - full term 8#2oz Male epidural [facility] GP Froilan Delivery Date: 04/14/21 Last Updated [...] dates (more content not included)... Normal [facility] Laboratory - Chemistry and C hemistry - challengeOrdered By: Fiordaliza Zhong on 12-16-2024 Glucose Ql (U) Negative [facility] Laboratory - UrinalysisOrder ed By: Fiordaliza Zhong on 12-16-2024 Protein Ql (U) Negative [facility] Bilingual Receptionist Office Visit Reporton 12-16-2024 Bilingual Receptionist Office Visit Report [facility] [address] [place] [address], [address] [place] [address] OFFICE VISIT Date of Service: 12/16/24 MR#: [id number] Acct: [id number] Name: DEMETRIUS FERNANDES Rep #: [id number] : 1990 Provider: Dr. Fiordaliza leong MD Age/Sex: 34/F [facility] Status: Signed Intake Vital Signs 09/23/24 09:08 [...] occupational status: employed and unemployed current occupation: [employer] current occupational exposures/hazards: No pets [...] 1-2 times per week duration: 30-45 minutes/day parul/islam: None seatbelt use: always do you feel [...] live - full term 8#2oz Male epidural [facility] GP Froilan Delivery Date: 04/14/21 Last Updated [...] . (more content not included)... Normal [facility] L3410.9992on 11-23-2024 [facility] Misc. COMMENT Normal . [facility] Comment on above: Order Comment: Speci men Comment: SEE END OF THIS REPORT FOR CORRECTED REPORT COMMENTS [id number] msAFP SERUM RT Result Comment: Test Ordered: [id number] AFP, Serum, Open Spina Bifida Results Comment TG Reference Range: . The MOM and risk factors of this report have been modified based on new information supplied to us by the client or their designated civil rights representative. The Weight was changed from Not [...] Customer Services to discuss available options. The [employer] recommends amniocentesis [...] Spina Bifida Risk For further inquiries contact [facility] [facility] [facility] at [phone]. This test was developed and its performance characteristics determined by [facility]. It has not been cleared or approved by the Food and Drug Administration. Performed at: [facility] [address] [place], [place] [id number] [employer] Laborer: Caar Lanza [facility], Phone: [phone] Performed at: [address] [id number] [employer] Laborer: Jake Ferreira PhD, Phone: [phone] AMENDED REPORT 11/23/24 1609 [place] [facility]. previously reported as: COMMENT Test Ordered: [id number] AFP, Serum, Open Spina Bifida Results Report [...] Spina Bifida Risk For further inquiries contact [employer] at [phone]. This test was developed and its performance characteristics determined by [employer]. It has not been cleared or approved by the Food and Drug Administration. Performed at: - [facility] RTP [address] [facility], [place], [place] [id number] Cook House Laborer: Cara Lanza [facility], Phone: [phone] Performed at (more content not included)... Performed By: #### L 3410.9992 #### [facility] [address] [place], [place], [id number] Laboratory - Chemistry and C hemistry - challengeOrdered By: Erick Rodriguez on 11-17-2024 Glucose Ql (U) Negative [facility] - UrinalysisOrder ed By: Erick Rodriguez on 11-17-2024 Protein Ql (U) Negative [facility] Bilingual Receptionist Office Visit Reporton 11-17-2024 Bilingual Receptionist Office Visit Report [facility]'s [address], [address] [place] [address] OFFICE VISIT Date of Service: 11/17/24 MR#: [id number] Acct: [id number] Name: DEMETRIUS FERNANDES Rep #: [id number] : 1990 Provider: MARY JANE godoy Age/Sex: 34/F Location: [facility] Status: Signed Intake Vital Signs 09/23/24 09:08 10/22/24 10:18 11/17/24 08:40 Height 5 ft 9 in 5 ft 9 in 5 ft 9 in Weight: 317 lb 8 oz BMI 46.8 BP 126/80 H Intake Visit Reasons: 18wk ob Chief Complaint: 18 Week OB Sorter/Assay Tech Required: No Is patient in pain?: No [...] occupational status: employed and unemployed current occupation: [employer] current occupational exposures/hazards: No pets and [...] 1-2 times per week duration: 30-45 minutes/day parul/islam: None seatbelt use: always do you feel safe at home: Yes additional social history: - Froilan GUARDADON @ [facility] 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 Date Name GA/Weeks Outcome Route Bth Weight Infant Gen Labor Lgth Anesthesia Del Locatn Provider FOB 04/14/21 [place] 41 live - full term 8#2oz Male epidural [facility] GP Froilan Delivery Date: 04/14/21 Last Updated [...] concerned (more content not included)... Normal [facility] - Chemistry and C hemistry - challengeOrdered By: Aye Mcdowell on 10-22-2024 Glucose Ql (U) Negative [facility] - UrinalysisOrder ed By: Aye Mcdowell on 10-22-2024 Protein Ql (U) Negative [facility] Bilingual Receptionist Office Visit Reporton 10-22-2024 Bilingual Receptionist Office Visit Report [facility]'s [address], [address] [place] [address] OFFICE VISIT Date of Service: 10/22/24 MR#: [id number] Acct: [id number] Name: DEMETRIUS FERNANDES Rep #: [id number] : 1990 Provider: Dr. Aye Morel DO Age/Sex: 34/F Location: [facility] Status: Signed Intake Vital Signs 04/13/21 20:08 09/23/24 09:08 10/22/24 10:18 10/22/24 10:18 Height 5 ft 9 in 5 ft 9 in 5 ft 9 in 5 ft 9 in Weight: 312 lb 2 oz BMI 46.0 BP 119/76 Intake Visit Reasons: 14wk OB Sorter/Assay Tech Required: No Is patient in pain?: No [...] occupational status: employed and unemployed current occupation: [employer] current occupational exposures/hazards: No pets and [...] 1-2 times per week duration: 30-45 minutes/day parul/islam: None seatbelt use: always do you feel safe at home: Yes additional social history: - 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 Date Name GA/Weeks Outcome Route Bth Weight Infant Gen Labor Lgth Anesthesia Del [facility] Provider FOB 04/14/21 [place] 41 live - full term 8#2oz Male epidural [facility] GP Froilan Delivery Date: 04/14/21 Last Updated [...] concerned (more content not included)... Normal [facility] Miscellaneous procedureOrder ed By: Aye Mcdowell on 10-04-2024 Miscellaneous Test Comment SEE SCANNED REPORT [facility] NATREESEon 10-04-2024 TASIA SEE SCANNED REPORT Normal [facility] Comment on above: Performed By: #### L 900.0098 #### [facility] [address] [place], [place], [id number] PAP IG HPV APTIMA 16/18,45on 09-28-2024 ADEQ Comment Normal . [facility] Comment on above: Order Comment: Speci men Comment: [id number] Comment: Source.............Cervix;EndocervixSpecimen Comment: LMP / Prev Treat...[id number] Comment: Other..............Specimen Comment: No. of containers..01 ThinPrep Vial Result Comment: Sati sfactory for evaluation. No endocervical component is identified. An endocervical component is not commonly seen in the patient. Performed By: #### L 7400.0280, M100.2200, L7000.1800 ####[facility] [address] [facility]. [place], [place], [id number] COMM . Normal . [facility] Comment on above: Order Comment: Speci men Comment: [id number] Comment: Source.............Cervix;EndocervixSpecimen Comment: LMP / Prev Treat...[id number] Comment: Other..............Specimen Comment: No. of containers..01 ThinPrep Vial Performed By: #### L 7400.0280, M100.2200, L7000.1800 ####[facility] [address] [place], [place], [address] COMMENT Comment Normal . [facility] Comment on above: Order Comment: Speci men Comment: [id number] Comment: Source.............Cervix;EndocervixSpecimen Comment: LMP / Prev Treat...[id number] Comment: Other..............Specimen Comment: No. of containers..01 ThinPrep Vial Result Comment: This liquid based ThinPrep(R) pap test was screened with the use of an image guided system. Performed By: #### L 7400.0280, M100.2200, L7000.1800 ####[facility] [address] [place], [address] DIAG Comment Normal . [facility] Comment on above: Order Comment: Speci men Comment: [id number] Comment: Source.............Cervix;EndocervixSpecimen Comment: LMP / Prev Treat...[id number] Comment: Other..............Specimen Comment: No. of containers..01 ThinPrep Vial Result Comment: NEGA TIVE FOR INTRAEPITHELIAL LESION OR MALIGNANCY. Performed By: #### L 7400.0280, M100.2200, L7000.1800 ####[facility] [address] [place], [place], [address] HPV APTIMA, HR Negative Normal Negative [facility] Comment on above: Order Comment: Speci men Comment: [id number] Comment: Source.............Cervix;EndocervixSpecimen Comment: LMP / Prev Treat...[id number] Comment: Other..............Specimen Comment: No. of containers..01 ThinPrep Vial Result Comment: This nucleic acid amplification test detects fourteen high- risk HPV types (16,18,31,33,35,39,45,51,52,56,58,59,66,68) without differentiation. Performed By: #### L 7400.0280, M100.2200, L7000.1800 ####[facility] [address] [place], [address] HPV Sarah Rfx Comment Normal . [facility] Comment on above: Order Comment: Speci men Comment: [id number] Comment: Source.............Cervix;EndocervixSpecimen Comment: LMP / Prev Treat...[id number] Comment: Other..............Specimen Comment: No. of containers..01 ThinPrep Vial Result Comment: Crit eria not met, HPV Genotype not performed. Performed at: WB - [facility] [id number] Cook House Laborer: Silvia Irwin MD, Phone: [phone] Performed at: =G - [facility] [address] [id number] Cook House Laborer: Silvia Iriwn MD, Phone: [phone] Performed By: #### L 7400.0280, M100.2200, L7000.1800 ####[facility] [address] [place], [place], [id number] PAPSMR Comment Normal . [facility] Comment on above: Order Comment: Speci men Comment: [id number] Comment: Source.............Cervix;EndocervixSpecimen Comment: LMP / Prev Treat...[id number] Comment: Other..............Specimen Comment: No. of containers..01 ThinPrep [...] Performed By: #### L 7400.0280, M100.2200, L7000.1800 ####[facility] [address] [place], [place], [address] PERFORM Comment Normal . [facility] Comment on above: Order Comment: Speci men Comment: [id number] Comment: Source.............Cervix;EndocervixSpecimen Comment: LMP / Prev Treat...[id number] Comment: Other..............Specimen Comment: No. of containers..01 ThinPrep Vial Result Comment: Tammy Horan, Climatologist (ASCP) Performed By: #### L 7400.0280, M100.2200, L7000.1800 ####[facility] [address] [place], [address] Chlamydia/GC ARIAN aptimaon CHLAMY,NUC ACID Negative Normal Negative [facility] Comment on above: Performed By: #### L 7400.0280, M100.2200, L7000.1800 #### [facility] [address] [place], [address] GC BY NUC ACID Negative Normal Negative [facility] Comment on above: Result Comment: Perf ormed at: =G - [facility] [address] [id number] Cook House Laborer: Silvia Irwin MD, Phone: [phone] Performed By: #### L 7400.0280, M100.2200, L7000.1800 #### [facility] [address] [place], [address] Urine Cultureon 09-24-2024 U[facility] Culture exhibits no growth. Normal [facility] Comment on above: Performed By: #### L 7400.0280, M100.2200, L7000.1800 #### [facility] [address] [place], [address] Absolute lymphocyte countOrd ered By: Greg Rich on 09-23-2024 Lymphocytes Auto (Unsp spec) [#/Vol] 2.53 10*3/uL 0.83-4.51 [facility] Absolute neutrophil countOrd ered By: Greg Rich on 09-23-2024 Neutrophils (Bld) [#/Vol] 8.7 10*3/uL High 2.0-7.7 [facility] Automated lymphocyte count a s percentage of total leukocytesOrdered By: Greg Rich on 09-23-2024 Lymphocytes/100 WBC Auto (Unsp spec) 20.5 % 19-41 [facility] Basophil percentageOrdered B y: Greg Rich on 09-23-2024 Basophils/100 WBC (Bld) 0.5 % 0-1 [facility] C. trachomatis rRNA ARIAN+prob e Ql (Unsp spec)Ordered By: Greg Andry on 09-23-2024 Chlamydia DNA (ARIAN) Negative Negative [facility] CBC W/Diff, Automatedon 09-11 Absolute Lymph 2.53 X10 3/uL Normal 0.83-4.51 [facility] Comment on above: Performed By: #### L 900.0098, BTS, L3890.6006, L3890.6301, L509.4006, L3890.6102, L100.0100, L509.8002, L501.9985 ####[facility] [address] [place], [address] Absolute Neut 8.7 X10 3/uL High 2.0-7.7 [facility] Comment on above: Performed By: #### L 900.0098, BTS, L3890.6006, L3890.6301, L509.4006, L3890.6102, L100.0100, L509.8002, L501.9985 ####[facility] [address] [place], [address] Basophils/100 WBC (Bld) 0.5 % Normal 0-1 [facility] Comment on above: Performed By: #### L 900.0098, BTS, L3890.6006, L3890.6301, L509.4006, L3890.6102, L100.0100, L509.8002, L501.9985 ####[facility] [address] [place], [place], [phone] Eosinophils/100 WBC (Bld) 1.2 % Normal 0-5 [facility] Comment on above: Performed By: #### L 900.0098, BTS, L3890.6006, L3890.6301, L509.4006, L3890.6102, L100.0100, L509.8002, L501.9985 ####[facility] [address] [place], [address](479) Erythrocyte distribution width (RBC) [Ratio] 14.0 % Normal 11.6-14.6 [facility] Comment on above: Performed By: #### L 900.0098, BTS, L3890.6006, L3890.6301, L509.4006, L3890.6102, L100.0100, L509.8002, L501.9985 ####[facility] [address] [place], [address](612) Hematocrit (Bld) [Volume fraction] 36.9 % Low 37-47 [facility] Comment on above: Performed By: #### L 900.0098, BTS, L3890.6006, L3890.6301, L509.4006, L3890.6102, L100.0100, L509.8002, L501.9985 ####[facility] [address] [place], [place], [phone](911) Hemoglobin (Bld) [Mass/Vol] 12.0 g/dL Normal 12.0-15.0 [facility] Comment on above: Performed By: #### L 900.0098, BTS, L3890.6006, L3890.6301, L509.4006, L3890.6102, L100.0100, L509.8002, L501.9985 ####[facility] [address] [place], [address] IG% 0.300 Normal 0.0-0.9 [facility] Comment on above: Result Comment: IG% - Immature Granulocytes (promyelocytes, myelocytes and metamyelocytes) > 1% indicates that a LEFT SHIFT is Present. Performed By: #### L 900.0098, BTS, L3890.6006, L3890.6301, L509.4006, L3890.6102, L100.0100, L509.8002, L501.9985 ####[facility] [address] [place], [address] Lymphocytes/100 WBC (Bld) 20.5 % Normal 19-41 [facility] Comment on above: Performed By: #### L 900.0098, BTS, L3890.6006, L3890.6301, L509.4006, L3890.6102, L100.0100, L509.8002, L501.9985 ####[facility] [address] [place], [address] MCH (RBC) [Entitic mass] 27.3 pg Normal 27.0-32.0 [facility] Comment on above: Performed By: #### L 900.0098, BTS, L3890.6006, L3890.6301, L509.4006, L3890.6102, L100.0100, L509.8002, L501.9985 ####[facility] [address] [place], [address] MCHC (RBC) [Mass/Vol] 32.5 g/dL Normal 32-36 [facility] Comment on above: Performed By: #### L 900.0098, BTS, L3890.6006, L3890.6301, L509.4006, L3890.6102, L100.0100, L509.8002, L501.9985 ####[facility] [address] [place], [address] MCV (RBC) [Entitic vol] 83.9 fL Normal 81-99 [facility] Comment on above: Performed By: #### L 900.0098, BTS, L3890.6006, L3890.6301, L509.4006, L3890.6102, L100.0100, L509.8002, L501.9985 ####[facility] [address] [place], [address] Monocytes/100 WBC (Bld) 7.0 % Normal 0-10 [facility] Comment on above: Performed By: #### L 900.0098, BTS, L3890.6006, L3890.6301, L509.4006, L3890.6102, L100.0100, L509.8002, L501.9985 ####[facility] [address] [place], [address] Neutrophils/100 WBC (Bld) 70.5 % High 47-70 [facility] Comment on above: Performed By: #### L 900.0098, BTS, L3890.6006, L3890.6301, L509.4006, L3890.6102, L100.0100, L509.8002, L501.9985 ####[facility] [address] [place], [address] Nucleated RBC (Bld) [#/Vol] 0 10*3/uL Normal 0-5 [facility] Comment on above: Performed By: #### L 900.0098, BTS, L3890.6006, L3890.6301, L509.4006, L3890.6102, L100.0100, L509.8002, L501.9985 ####[facility] [address] [place], [address] Platelet mean volume (Bld) [Entitic vol] 10.7 fL Normal 6.2-12.0 [facility] Comment on above: Performed By: #### L 900.0098, BTS, L3890.6006, L3890.6301, L509.4006, L3890.6102, L100.0100, L509.8002, L501.9985 ####[facility] [address] [place], [address] Platelets (Bld) [#/Vol] 294 10*3/uL Normal 150-450 [facility] Comment on above: Performed By: #### L 900.0098, BTS, L3890.6006, L3890.6301, L509.4006, L3890.6102, L100.0100, L509.8002, L501.9985 ####[facility] [address] [place], [address] RBC (Bld) [#/Vol] 4.40 10*6/uL Normal 4.2-5.4 [facility] Comment on above: Performed By: #### L 900.0098, BTS, L3890.6006, L3890.6301, L509.4006, L3890.6102, L100.0100, L509.8002, L501.9985 ####[facility] [address] [place], [address] RDW SD 43.3 fl Normal 35.1-43.9 [facility] Comment on above: Performed By: #### L 900.0098, BTS, L3890.6006, L3890.6301, L509.4006, L3890.6102, L100.0100, L509.8002, L501.9985 ####[facility] [address] [place], [address] WBC (Bld) [#/Vol] 12.3 10*3/uL High 4.4-11.0 [facility] Comment on above: Performed By: #### L 900.0098, BTS, L3890.6006, L3890.6301, L509.4006, L3890.6102, L100.0100, L509.8002, L501.9985 ####[facility] [address] [place], [address] Cervical or vaginal specimen microscopic examination by liquid based cytology (reportOrdered By: Greg Rich on 09-23-2024 Cytology report Cyto stain.thin prep Doc (Cvx/Vag) Comment . [facility] Comment on above: Criteria not met, HP V Genotype not performed.Performed at: - [facility] [id number] Director: Silvia Irwin MD, Phone: [phone] at: =[facility] [id number] Director: Silvia Irwin MD, Phone: [phone] Cervical or vagninal specime n microscopic examination by cytology stain (reported asOrdered By: Greg Rich on 09-23-2024 Cytology report Cyto stain Doc (Cvx/Vag) Comment . [facility] Comment on above: The Pap smear [...] ARIAN+probe Ql (Unsp spec) Negative Negative [facility] Roadway Engineer Cyto stain Nom (C vx/Vag) [ID]Ordered By: Greg Rich on 09-23-2024 Pap Smear Performed By Comment . [facility] Comment on above: Jorge A Art totechnologist (ASCP) Cytology report Cyto stain D oc (Cvx/Vag)Ordered By: Greg Rich on 09-23-2024 Thin Prep Pap Smear Comment . [facility] Comment on above: The Pap [...] HPV Genotype Special Info Comment . [facility] Comment on above: Criteria not met, HP V Genotype not performed.Performed at: - [facility] [id number] Director: Silvia Irwin MD, Phone: [phone] at: = - [facility] [address] [id number] Director: Silvia Irwin MD, Phone: [phone] Detection in cervical specim en of any of human papilloma virus (HPV) 16, 18, 31, 33,Ordered By: Greg Rich on 09-23-2024 HPV 16+18+31+33+35+39+45+51+ 52+56+58+59+66+68 DNA Probe+sig amp Ql (Cvx) Negative Negative [facility] Comment on above: This nucleic acid am plification test detects fourteen high-risk HPV types (16,18,31,33,35,39,45,51,52,56,58,59,66,68)without differentiation. Eosinophil percentageOrdered By: Greg Rich on 09-23-2024 Eosinophils/100 WBC (Bld) 1.2 % 0-5 [facility] Erythrocyte distribution wid th ratioOrdered By: Greg Rich on 09-23-2024 Erythrocyte distribution width (RBC) [Ratio] 14.0 % 11.6-14.6 [facility] Erythrocyte distribution wid th standard deviationOrdered By: Greg Rich on 09-23-2024 Erythrocyte distribution width (RBC) [Entitic vol] 43.3 fL 35.1-43.9 [facility] Erythrocyte distribution width (RBC) [Ratio] 43.3 fl 35.1-43.9 [facility] HBV surface Ag Ql (S)Ordered By: Greg Rich on 09-23-2024 Hepatitis B Surface Antigen Non-Reactive Nonreactive [facility] Comment on above: Reactive: Presumptiv e evidence of HBV. Repeatedly reactive samples must be confirmed using a neutralization test ([facility] HBsAg Confirmatory Test)Non-Reactive: HBsAg not detected; does not exclude the possibility of exposure to HBV HPV 16+18+31+33+35+39+45+51+ 52+56+58+59+66+68 DNA Probe+sig amp Ql (Cvx)Ordered By: Greg Rich on 09-23-2024 Human Papillomavirus High Risk Negative Negative [facility] Comment on above: This nucleic acid am plification test detects fourteen high-risk HPV types (16,18,31,33,35,39,45,51,52,56,58,59,66,68)without differentiation. Hematocrit Auto (Bld) [Volum e fraction]Ordered By: Greg Rich on 09-23-2024 Hematocrit (Bld) [Volume fraction] 36.9 % Low 37-47 [facility] Hemoglobin A1con 09-23-2024 HbA1c (Bld) [Mass fraction] 5.6 % Low <=5.6 [facility] Comment on above: Performed By: #### L 900.0098, BTS, L3890.6006, L3890.6301, L509.4006, L3890.6102, L100.0100, L509.8002, L501.9985 ####[facility] [address] [place], [place], [id number] Hemoglobin A1c percentageOrd ered By: Greg Rich on 09-23-2024 HbA1c (Bld) [Mass fraction] 5.6 % Low >5.7 [facility] Hemoglobin measurementOrdere d By: Greg Rich on 09-23-2024 Hemoglobin (Bld) [Mass/Vol] 12.0 g/dL 12.0-15.0 [facility] Hepatitis C antibodyOrdered By: Greg Rich on 09-23-2024 Hepatitis C Antibody Non-Reactive Nonreactive [facility] Comment on above: Reactive: Presumptiv e evidence of antibodies to HCV. Follow CDC recommendations for supplemental testing.Non-Reactive: Antibodies to HCV were not detected; does not exclude the possibility of exposure to HCVReactive Results are presumptive evidence of antibodies to HCV. Follow CDC recommendations for supplemental testing.Order confirmation testing: HCV Quant by PCR testing - HCVPCR #[id number] Non Reactive: < 0.8 Equivocal: >/= 0.8 to < 1.0 Reactive: >/= 1.0The CDC requires that a reactive/equivocal HCV antibody result be sent out for confirmation. HCV Quant by PCR testing. Image-guided ThinPrep PapOrd ered By: Greg Rich on 09-23-2024 Pap Smear Note Comment . [facility] Comment on above: This liquid based Th inPrep(R) pap test was screened withthe use of an image guided system. Image-guided liquid-based Pa pOrdered By: Greg Rich on 09-23-2024 Pap Smear Diagnosis Comment . [facility] Comment on above: NEGATIVE FOR INTRAEP ITHELIAL LESION OR MALIGNANCY. Immature granulocytes/100 WB C Auto (Bld)Ordered By: Greg Rich on 09-23-2024 Immature granulocytes/100 WBC (Bld) 0.300 % 0.0-0.9 [facility] Comment on above: IG% - Immature Granu locytes (promyelocytes, myelocytes and metamyelocytes) > 1% indicates that a LEFT SHIFT is Present. L3890.6006on 09-23-2024 HIV Non-Reactive Normal Nonreactive [facility] Comment on above: Result Comment: Non- Reactive Reactive Repeatedly reactive samples must be confirmed according to CDC recommended confirmatory algorithms. The subresults for either HIVAG or AHIV can be used as an aid in the selection of the confirmation algorithm for reactive samples. Send out specimens with Reactive results to [facility] for confirmation. Order the HIV antibody detection and differentiation: [id number] Performed By: #### L 900.0098, BTS, L3890.6006, L3890.6301, L509.4006, L3890.6102, L100.0100, L509.8002, L501.9985 ####[facility] [address] [place], [address] L3890.6102on 09-23-2024 HEP B Surf Ag Non-Reactive Normal Nonreactive [facility] Comment on above: Result Comment: Reac tive: Presumptive evidence of HBV. Repeatedly reactive samples must be confirmed using a neutralization test ([facility] HBsAg Confirmatory Test) Non-Reactive: HBsAg not detected; does not exclude the possibility of exposure to HBV Performed By: #### L 900.0098, BTS, L3890.6006, L3890.6301, L509.4006, L3890.6102, L100.0100, L509.8002, L501.9985 ####[facility] [address] [place] [place], [address] L3890.6301on 09-23-2024 Hepatitis C Ab Non-Reactive Normal Nonreactive [facility] Comment on above: Result Comment: Reac tive: Presumptive evidence of antibodies to HCV. Follow CDC recommendations for supplemental testing. Non-Reactive: Antibodies to HCV were not detected; does not exclude the possibility of exposure to HCV Reactive Results are presumptive evidence of antibodies to HCV. Follow CDC recommendations for supplemental testing. Order confirmation testing: HCV Quant by PCR testing - HCVPCR #[id number] Non Reactive: < 0.8 Equivocal: >/= 0.8 to < 1.0 Reactive: >/= 1.0 The [facility] requires that a reactive/equivocal HCV antibody result be sent out for confirmation. HCV Quant by PCR testing. Performed By: #### L 900.0098, BTS, L3890.6006, L3890.6301, L509.4006, L3890.6102, L100.0100, L509.8002, L501.9985 ####[facility] [id number] [place], [address] L509.4006on 09-23-2024 Rubella IgG REAC Normal Nonreactive [facility] Comment on above: Result Comment: Anti body Result: Interpretation Non-Reactive: Non-Immune Reactive: Immune The following results were obtained with the Elecsys Rubella IgG assay. Results from assays of other manufacturers cannot be used interchangeably. Performed By: #### L 900.0098, BTS, L3890.6006, L3890.6301, L509.4006, L3890.6102, L100.0100, L509.8002, L501.9985 ####[facility] [id number] [place], [address] L509.8002on 09-23-2024 Syphilis Abs Non-Reactive Normal Nonreactive [facility] Comment on above: Performed By: #### L 900.0098, BTS, L3890.6006, L3890.6301, L509.4006, L3890.6102, L100.0100, L509.8002, L501.9985 ####[facility] [id number] [place], [address] Laboratory - CytologyOrdered By: Greg Rich on 09-23-2024 Road[address] Engineer Cyto stain Nom (Cvx/Vag) [ID] Comment . [facility] Comment on above: Jorge A Art totechnologist (ASCP) Laboratory - Microbiology an d Antimicrobial susceptibilityOrdered By: Greg Rich on 09-23-2024 HBV surface Ag Ql (S) Non-Reactive Nonreactive [facility] Comment on above: Reactive: Presumptiv e evidence of HBV. Repeatedly reactive samples must be confirmed using a neutralization test (Elecsys HBsAg Confirmatory Test)Non-Reactive: HBsAg not detected; does not exclude the possibility of exposure to HBV Laboratory - Miscellaneous t estsOrdered By: Greg Rich on 09-23-2024 Service comment (Unsp spec) [Interp] . . [facility] Lymphocytes Auto (Unsp spec) [#/Vol]Ordered By: Greg Rich on 09-23-2024 Lymphocytes (Bld) [#/Vol] 2.53 10*3/uL 0.83-4.51 [facility] Lymphocytes/100 WBC Auto (Un sp spec)Ordered By: Greg Rich on 09-23-2024 Lymphocytes/100 WBC (Bld) 20.5 % 19-41 [facility] MCV (mean corpuscular volume ) determinationOrdered By: Greg Rich on 09-23-2024 MCV (RBC) [Entitic vol] 83.9 fL 81-99 [facility] Mean corpuscular hemoglobin (MCH) determinationOrdered By: Greg Rich on 09-23-2024 MCH (RBC) [Entitic mass] 27.3 pg 27.0-32.0 [facility] Mean corpuscular hemoglobin concentration (MCHC) determinationOrdered By: Greg Rich on 09-23-2024 MCHC (RBC) [Mass/Vol] 32.5 g/dL 32-36 [facility] Mean platelet volume determi nationOrdered By: Greg Rich on 09-23-2024 Platelet mean volume (Bld) [Entitic vol] 10.7 fL 6.2-12.0 [facility] Miscellaneous procedureOrder ed By: Greg Rich on 09-23-2024 Miscellaneous Test Comment SEE SCANNED REPORT [facility] Monocyte percentageOrdered B y: Greg Rich on 09-23-2024 Monocytes/100 WBC (Bld) 7.0 % 0-10 [facility] NATERAon 09-23-2024 NATURA SEE SCANNED REPORT Normal [facility] Comment on above: Order Comment: Comme nts: NIPT with Gender Performed By: #### L 900.0098, BTS, L3890.6006, L3890.6301, L509.4006, L3890.6102, L100.0100, L509.8002, L501.9985 ####[facility] [id number] [place], [address] Neisseria gonorrhoeae nuclei c acid detection by amplified probe techniqueOrdered By: Greg Rich on 09-23-2024 N. gonorrhoeae DNA ARIAN+probe Ql (Unsp spec) Negative Negative [facility] Comment on above: Performed at: =[address] [id number] Director: Silvia Irwin MD, Phone: [phone] Neutrophil percentageOrdered By: Greg Rich on 09-23-2024 Neutrophils/100 WBC (Bld) 70.5 % High 47-70 [facility] No Panel InformationOrdered By: Greg Rich on 09-23-2024 Pap Smear Specimen Adequacy Comment . [facility] Comment on above: Satisfactory for rosa luation. No endocervical component is identified.An endocervical component is not commonly seen in the patient. HIV (1&2) Antibody Non-Reactive Nonreactive [facility] Comment on above: Non-ReactiveReactive Repeatedly reactive samples must be confirmed according to CDC recommended confirmatory algorithms. The subresults for either HIVAG or AHIV can be used as an aid in the selection of the confirmation algorithm for reactive samples.Send out specimens with Reactive results to [facility] for confirmation.Order the HIV antibody detection and differentiation: #[id number] Nucleated red blood cell per centageOrdered By: Greg Rich on 09-23-2024 Nucleated RBC/100 WBC (Bld) [Ratio] 0 % 0-5 [facility] Bilingual Receptionist Office Visit Reporton 09-23-2024 Bilingual Receptionist Office Visit Report [facility] [address], [address] [place] [address] OFFICE VISIT Date of Service: 09/23/24 MR#: [id number] Acct: [id number] Name: DEMETRIUS FERNANDES Rep #: [id number] : 1990 Provider: ZACHARY Way ams Age/Sex: 34/F Location: [facility] Status: Signed Intake Vital Signs 04/13/21 20:08 [...] occupational status: employed and unemployed 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 Date Name GA/Weeks Outcome Route Bth Weight Gen Labor [facility] 04/14/21 Timmy 41 live - full term 8#2oz Male epidural [facility] GP Froilan Delivery Date: 04/14/21 Last Updated [...] accepts (more content not included)... Normal [facility] Platelet countOrdered By: Akbar Rich on 09-23-2024 Platelets (d) [#/Vol] 294 10*3/uL 150-450 [facility] RBC Auto (d) [#/Vol]Ordere d By: Greg Rich on 09-23-2024 RBC (Bld) [#/Vol] 4.40 10*6/uL 4.2-5.4 [facility] Rubella immune status determ ination by IgG antibody assayOrdered By: Greg Rich on 09-23-2024 Rubella IgG Antibody REAC Nonreactive [facility] Comment on above: Antibody Result: Int erpretationNon-Reactive: Non-ImmuneReactive: ImmuneThe following results were obtained with the Elecsys Rubella IgG assay. Results from assays of other manufacturers cannot be used interchangeably. Service comment (Unsp spec) [Interp]Ordered By: Greg Rich on 09-23-2024 Pap Smear Comment (3) . . [facility] T. pallidum abOrdered By: Akbar Rich on 09-23-2024 Syphilis Total Antibody Non-Reactive Nonreactiv e [facility] Type AND Screenon 09-23-2024 ABO and Rh group Nom (Bld) Blood group O Rh(D) negative Normal [facility] Comment on above: Order Comment: PN Performed By: #### L 900.0098, BTS, L3890.6006, L3890.6301, L509.4006, L3890.6102, L100.0100, L509.8002, L501.9985 ####[facility] [id number] [place], [address] Urine cultureOrdered By: Luan Rich on 09-23-2024 Bacteria identified Cx Nom (U) Culture exhibits no growth. [facility] White blood cell (WBC) count Ordered By: Greg Rich on 09-23-2024 WBC (Bld) [#/Vol] 12.3 10*3/uL High 4.4-11.0 [facility] Serum Varicella zoster virus IgG antibody assay by immunoassay (units/volume)Ordered By: Cristina Barros on 03-06-2023 VZV IgG IA Qn (S) 3665 index Immune >165 [facility] Comment on above: Negative <135 Equivo eben 135 - 165 Positive >165A positive result generally indicates exposure to thepathogen or administration of specific immunoglobulins,but it is not indication of active infection or stageof disease.Performed at: [facility] [id number] [place], [place] [id number] Director: Jake Ferreira PhD, Phone: [phone] No Panel Informationon 02-19 Rubella IgG Antibody Reactive Nonreactive [facility] Work Phone: Comment on above: Antibody Results Int erpretation of Immune Status Non Reactive Presumed Non-Immune Equivocal Equivocal Reactive Presumed Immune Serum measles virus IgG anti body assay by immunoassay (units/volume)on 02-19-2022 MeV IgG IA Qn (S) 150.0 AU/mL Immune >16.4 [facility] Work Phone: Comment on above: Negative <13.5 Equiv ocal 13.5 - 16.4 Positive >16.4Presence of antibodies to Rubeola is presumptive evidenceof immunity except when acute infection is suspected.Performed at: [facility] [id number] [place], [place] [id number] Director: Jake Ferreira PhD, Phone: [phone] Serum mumps virus IgG antibo dy assay (units/volume)on 02-19-2022 MuV IgG Qn (S) 16.6 AU/mL Immune >10.9 [facility] Work Phone: Comment on above: Negative <9.0 Equivo eben 9.0 - 10.9 Positive >10.9A positive result generally indicates past exposure toMumps virus or previous vaccination. Vital Signs Date Time Vital Sign Value Performing Clinician Juancarlosi litpatti 03-24-2025 10:-040 Body height 175.26 cm Erick Brooks [employer] Work Phone: [facility] 03-24-2025 10: Body mass index (BMI) [Ratio] 51 kg/m2 Erick Lafayette [employer] Work Phone: [facility] 03-24-2025 10: Body weight 156.74 kg Erick Brooks [employer] Work Phone: [facility] 03-24-2025 10:040 Diastolic blood pressure 76 mm[Hg] Erick Lafayette [employer] Work Phone: [facility] 03-24-2025 10:26-0400 Systolic blood pressure 132 mm[Hg] Erick Brooks [employer] Work Phone: [facility] 03-24-2025 09:10-0400 Body height 175.26 cm Erick Lafayette [employer] Work Phone: [facility] 03-24-2025 09:10-0400 Body mass index (BMI) [Ratio] 51.1 kg/m2 Erick Brooks [employer] Work Phone: [facility] 03-24-2025 09:10-0400 Body weight 157 kg Erick Lafayette [employer] Work Phone: [facility] 03-24-2025 09:10-0400 Diastolic blood pressure 64 mm[Hg] Erick Brooks [employer] Work Phone: [facility] 03-24-2025 09:10-0400 Heart rate 82 /min Erick Lafayette [employer] Work Phone: [facility] 03-24-2025 09:10-0400 Systolic blood pressure 133 mm[Hg] Erick Lafayette [employer] Work Phone: [facility] 03-21-2025 10:29-0400 Body height 175.26 cm Erick Lafayette [employer] Work Phone: [facility] 03-21-2025 10:29-0400 Body mass index (BMI) [Ratio] 50.5 kg/m2 Erick Lafayette [employer] Work Phone: [facility] 03-21-2025 10:29-0400 Body weight 155.29 kg Erick Lafayette [employer] Work Phone: [facility] 03-21-2025 10:29-0400 Diastolic blood pressure 72 mm[Hg] Erick Brooks [employer] Work Phone: [facility] 03-21-2025 10:29-0400 Systolic blood pressure 127 mm[Hg] Erick Lafayette [employer] Work Phone: [facility] 03-15-2025 10:55-0400 Respiratory rate 16 /min Erick Brooks [employer] Work Phone: [facility] 03-15-2025 10:44-0400 Diastolic blood pressure 66 mm[Hg] Erick Lafayette [employer] Work Phone: [facility] 03-15-2025 10:44-0400 Heart rate 74 /min Erick Brooks [employer] Work Phone: [facility] 03-15-2025 10:44-0400 Systolic blood pressure 123 mm[Hg] Erick Lafayette [employer] Work Phone: [facility] 03-15-2025 10:40-0400 Body height 175.26 cm Erick Brooks [employer] Work Phone: [facility] 03-15-2025 10:40-0400 Body mass index (BMI) [Ratio] 49.8 kg/m2 Erick Lafayette [employer] Work Phone: [facility] 03-15-2025 10:40-0400 Body weight 153 kg Erick Lafayette [employer] Work Phone: [facility] 03-09-2025 10:33-0400 Heart rate 67 /min Erick Brooks [employer] Work Phone: [facility] 03-09-2025 10:33-0400 SaO2% (BldA) [Mass fraction] 96 % Erick Lafayette [employer] Work Phone: [facility] 03-09-2025 10:29-0400 Body height 175.26 cm Erick Lafayette [employer] Work Phone: [facility] 03-09-2025 10:29-0400 Body mass index (BMI) [Ratio] 50.1 kg/m2 Erick Brooks [employer] Work Phone: [facility] 03-09-2025 10:29-0400 Body weight 154.1 kg Erick Brooks [employer] Work Phone: [facility] 03-09-2025 10:22-0400 Diastolic blood pressure 58 mm[Hg] Erick Lafayette [employer] Work Phone: [facility] 03-09-2025 10:22-0400 Systolic blood pressure 122 mm[Hg] Erick Brooks [employer] Work Phone: [facility] 03-09-2025 10:19-0400 Body temperature 97.5 [degF] Erick Brooks [employer] Work Phone: [facility] 03-09-2025 10:19-0400 Respiratory rate 18 /min Erick Brooks [employer] Work Phone: [facility] 03-09-2025 08:55-0400 Body height 175.26 cm Erick Lafayette [employer] Work Phone: [facility] 03-09-2025 08:54-0400 Body mass index (BMI) [Ratio] 50.1 kg/m2 Erick Lafayette [employer] Work Phone: [facility] 03-09-2025 08:54-0400 Body weight 153.93 kg Erick Brooks [employer] Work Phone: [facility] 03-09-2025 08:54-0400 Diastolic blood pressure 85 mm[Hg] Erick Brooks [employer] Work Phone: [facility] 03-09-2025 08:54-0400 Systolic blood pressure 136 mm[Hg] Erick Lafayette [employer] Work Phone: [facility] 02-22-2025 10:03-0400 Body height 175.26 cm Erick Lafayette [employer] Work Phone: [facility] 02-22-2025 10:03-0400 Body mass index (BMI) [Ratio] 49.9 kg/m2 Erick Lafayette [employer] Work Phone: [facility] 02-22-2025 10:03-0400 Body weight 153.34 kg Erick Brooks [employer] Work Phone: [facility] 02-22-2025 10:03-0400 Diastolic blood pressure 76 mm[Hg] Erick Brooks [employer] Work Phone: [facility] 02-22-2025 10:03-0400 Systolic blood pressure 132 mm[Hg] Erick Brooks [employer] Work Phone: [facility] 02-07-2025 09:25-0400 Body height 175.26 cm Erick Brooks [employer] Work Phone: [facility] 02-07-2025 09:25-0400 Body mass index (BMI) [Ratio] 49 kg/m2 Erick Brooks [employer] Work Phone: [facility] 02-07-2025 09:25-0400 Body weight 150.59 kg Erick Lafayette [employer] Work Phone: [facility] 02-07-2025 09:25-0400 Diastolic blood pressure 71 mm[Hg] Erick Lafayette [employer] Work Phone: [facility] 02-07-2025 09:25-0400 Systolic blood pressure 107 mm[Hg] Erick Brooks [employer] Work Phone: [facility] 01-24-2025 08:40-0400 Body height 175.[address] Aye Dey DO Work Phone: [facility] 01-24-2025 08:30-0400 Body mass index (BMI) [Ratio] 48.9 kg/m2 Dr. Aye Dey DO Work Phone: [facility] 01-24-2025 08:30-0400 Body weight 150.[address] Aye Dey DO Work Phone: [facility] 01-24-2025 08:30-0400 Diastolic blood pressure 72 mm[Hg] Dr. Aye Dey DO Work Phone: [facility] 01-24-2025 08:30-0400 Systolic blood pressure 124 mm[Hg] Dr. Aye Dey DO Work Phone: [facility] 01-12-2025 09:43-0400 Body height 175.26 cm Greg Rich CNM Work Phone: [facility] 01-12-2025 09:43-0400 Body mass index (BMI) [Ratio] 48.4 kg/m2 Greg LUIM Work Phone: [facility] 01-12-2025 09:43-0400 Body weight 149 kg Greg LUIM Work Phone: [facility] 01-12-2025 09:43-0400 Diastolic blood pressure 82 mm[Hg] Greg LUIM Work Phone: [facility] 01-12-2025 09:43-0400 Systolic blood pressure 130 mm[Hg] Greg LUIM Work Phone: [facility] 12-16-2024 09:30-0400 Body height 175.26 cm Greg LUIM Work Phone: [facility] 12-16-2024 09:06-0400 Body mass index (BMI) [Ratio] 47.2 kg/m2 Greg LUIM Work Phone: [facility] 12-16-2024 09:06-0400 Body weight 145.14 kg Greg LUIM Work Phone: [facility] 12-16-2024 09:06-0400 Diastolic blood pressure 69 mm[Hg] Greg LUIM Work Phone: [facility] 12-16-2024 09:06-0400 Systolic blood pressure 119 mm[Hg] Greg LUIM Work Phone: [facility] 11-17-2024 08:40-0400 Body height 175.26 cm Greg Rich CNM Work Phone: [facility] 11-17-2024 08:40-0400 Body mass index (BMI) [Ratio] 46.8 kg/m2 Greg Rich CNM Work Phone: [facility] 11-17-2024 08:40-0400 Body weight 144.01 kg Greg Rich CNM Work Phone: [facility] 11-17-2024 08:40-0400 Diastolic blood pressure 80 mm[Hg] Greg Rich CNM Work Phone: [facility] 11-17-2024 08:40-0400 Systolic blood pressure 126 mm[Hg] Greg Rich CNM Work Phone: [facility] 10-22-2024 10:18-0400 Body mass index (BMI) [Ratio] 46 kg/m2 Greg Rihc CNM Work Phone: [facility] 10-22-2024 10:18-0400 Body weight 141.57 kg Greg Rich CNM Work Phone: [facility] 10-22-2024 10:18-0400 Diastolic blood pressure 76 mm[Hg] Greg Rich CNM Work Phone: [facility] 10-22-2024 10:18-0400 Systolic blood pressure 119 mm[Hg] Greg LUIM Work Phone: [facility] 09-23-2024 09:08-0400 Body height 175.26 cm Greg Rich CNM Work Phone: [facility] 09-23-2024 09:05-0400 Body mass index (BMI) [Ratio] 45.6 kg/m2 Greg LUIM Work Phone: [facility] 09-23-2024 09:05-0400 Body weight 140.27 kg Greg Rich CNM Work Phone: [facility] 09-23-2024 09:05-0400 Diastolic blood pressure 67 mm[Hg] Greg Rich CNM Work Phone: [facility] 09-23-2024 09:05-0400 Systolic blood pressure 121 mm[Hg] Greg Rich CNM Work Phone: [facility] Encounters Encounter Date Encounter Type Care Provider Facility Start: [facility]20[facility] Start: 03-24-2025 Non-patient / Non-visit Dr. Fiordaliza Zhong MD -[facility] Start: 03-24-2025 End: 03-24-2025 ambulatory Erick Rodriguez [employer] Work Phone: -[facility] Start: 03-24-2025 End: 03-24-[address] Fiordaliza Zhong MD -[facility] Work Phone: Start: 03-21-2025 End: 03-21-2025 ambulatory [facility] Start: 03-21-2025 End: 03-21-2025 ambulatory [facility] Start: 03-21-[address] Fiordaliza Zhong MD -Laboratory Specimen Work Phone: Start: 03-[facility] Start: 03-21-2025 End: 03-21-2025 ambulatory Erick Lafayette [employer] Work Phone: -[facility] Start: 03-21-2025 End: 03-21-[address] Fiordaliza Zhong MD -[facility] Work Phone: Start: 03-17-2025 End: 03-17-2025 ambulatory [facility] Start: 03-16-2025 End: 03-16-2025 ambulatory [facility] Start: 03-15-2025 Non-patient / Non-visit Dr. Fiordaliza Zhong MD -[facility] Start: 03-15-2025 End: 03-15-2025 ambulatory Erick Lafayette [employer] [facility] Start: 03-15-2025 End: 03-15-[address] Fiordaliza Zhong MD -[facility] Work Phone: Start: 03-11-2025 End: 03-11-2025 ambulatory [facility] Start: 03-09-2025 ambulatory Aye Souza cility:[facility] Start: 03-09-2025 Non-patient / Non-visit Dr. Aye Dey DO -[facility] Start: 03-09-2025 End: 03-09-[address] Aye Dey DO -[facility] Work Phone: Start: 03-09-2025 End: 03-09-2025 ambulatory Erick Brooks [employer] Work Phone: -[facility] Start: 03-07-2025 End: 03-07-2025 ambulatory [facility] Start: 02-22-2025 End: 02-22-2025 Patient encounter procedure Greg LUI -[facility] Work Phone: Start: 02-22-2025 End: 02-22-2025 ambulatory Erick Lafayette [employer] Work Phone: -[facility] Start: 02-07-2025 End: 02-07-[address] Aye Dey DO -[facility] Work Phone: Start: 02-07-2025 End: 02-07-2025 ambulatory Erick Lafayette [employer] Work Phone: -[facility] Start: 01-25-2025 End: 01-25-[address] Aye Dey DO Work Phone: -Laboratory Start: 01-25-2025 End: 01-25-2025 Patient encounter procedure Erick Rodriguez [employer] -Laboratory Work Phone: Start: 01-24-2025 End: 01-24-2025 Patient encounter procedure Erick Rodriguez [employer] -[facility] Work Phone: Start: 01-24-2025 End: 01-25-[address] Aye Dey DO Work Phone: -[facility] Start: 01-24-2025 End: 01-24-2025 ambulatory Erick Rodriguez [employer] Facility:[facility] Start: 01-12-2025 End: 01-12-2025 Patient encounter procedure Erick Rodriguez [employer] -[facility] Work Phone: Start: 01-12-2025 End: 01-12-2025 ambulatory Greg Rich CNM Work Phone: -[facility] Start: 12-16-2024 End: 12-16-[address] Fiordaliza Zhong MD -[facility] Work Phone: Start: 12-16-2024 End: 12-16-2024 ambulatory Greg Rich CNM Work Phone: [facility] Work Phone: Start: 11-23-2024 End: 11-23-2024 ambulatory [facility] Start: 11-17-2024 End: 11-17-2024 Patient encounter procedure Erick Rodriguez [employer] -[facility] Work Phone: Start: 11-17-2024 End: 11-17-2024 ambulatory Greg Rich CNM Work Phone: [facility] Work Phone: Start: 11-17-2024 End: 11-17-2024 ambulatory Erick Lafayette [employer] Facility:[facility] Start: 10-22-2024 End: 10-22-[address] Aye Dey DO -[facility] Work Phone: Start: 10-22-2024 End: 10-22-2024 ambulatory Aye Dey Facility:[facility] Start: 10-04-2024 End: 10-04-2024 ambulatory Greg LUIM Work Phone: [facility] Work Phone: Start: 10-04-2024 End: 10-04-[address] Aye Dey DO -[facility] Start: 10-04-2024 End: 10-04-2024 ambulatory Aye Dey Facility:[facility] Start: 09-23-2024 End: 09-23-2024 Patient encounter procedure Greg Rich CNM -[facility] Work Phone: Start: 09-23-2024 End: 09-23-2024 ambulatory Greg LUIM Work Phone: [facility] Work Phone: Start: 09-23-2024 End: 09-23-2024 ambulatory Greg Rich Facility:[facility] Start: 03-06-2023 End: 03-06-2023 ambulatory [facility] Work Phone: Start: 03-06-2023 End: 03-06-2023 Patient encounter procedure [facility] Work Phone: Start: 02-19-2022 End: 02-19-2022 Patient encounter procedure [facility] Procedures Date Procedure Procedure Detail Performing Clinician Start: 03-21-2025 Beta-hemolytic Streptococcus culture Erick HINTON Work Phone: Start: 01-24-2025 Serologic test for syphilis Dr. Aye Dey DO Work Phone: Start: 11-17-2024 Procedure Greg LUIM Work Phone: Comment on above: Test Ordered: [id number] AFP, Serum, Open Sp jeb BifidaResults Report [...] Open Spina Bifida RiskFor further inquiries contact [facility] at [phone].This test was developed and its performance characteristicsdetermined by [facility]. It has not been cleared or approvedby the Food and Drug Administration.Performed at: - [facility] [id number] [place], [place] [id number] Director: Cara Lanza [facility], Phone: [phone] at: - [address] [id number] Director: Jake Ferreira PhD, Phone: [phone] Test Ordered: [id number] AFP, Serum, Open Spina BifidaResults Comment TG Reference Range: .The MOM and risk factors of this report have been modifiedbased on new information supplied to us by the client ortheir designated civil rights representative.The Weight was changed from Not provided. [...] Open Spina Bifida RiskFor further inquiries contact [facility]Corp[facility] at [phone] [place].This test was developed and its performance characteristicsdetermined by hetras. It has not been cleared or approvedby the Food and Drug Administration.Performed at: TG - [facility] [id number] [facility] [place], [place] [id number] Director: Cara Lanza [facility], Phone: [phone] at: CB - [facility] [address] [id number] Director: Jake Ferreira PhD, Phone: [phone] reported result: COMMENT Edited by: GISELA on 11/23/24:1609 AMENDED REPORT 11/23/24 1609 [facility] previously reported as: COMMENT Test Ordered: [id number] AFP, Serum, Open Spina BifidaResults Report TG [...] Open Spina Bifida RiskFor further inquiries contact [employer] [facility] at [phone].This test was developed and its performance characteristicsdetermined by hetras. It has not been cleared or approvedby the Food and Drug Administration.Performed at: - [facility] [id number] [facility] [place], [place] [id number] Director: Cara Lanza [facility], Phone: [phone] at: [facility] [id number] Director: Jake Ferreira PhD, Phone: [phone] Start: 10-04-2024 Procedure Greg Rich [facility] Work Phone: Start: 09-23-2024 Liquid based cervical cytology screening Greg Rich [facility] Work Phone: Comment on above: NEGATIVE FOR INTRAEPITHELIAL LESION OR M ALIGNANCY. This liquid based Th inPrep(R) pap test was screened withthe use of an image guided system. Start: 09-23-2024 Urine culture Greg Rich [facility] Work Phone: Start: 09-23-2024 Hepatitis C antibody measurement Greg collazo [facility] Work Phone: Comment on above: Reactive: Presumptive evidence of antibo dies to HCV. Follow CDC recommendations for supplemental testing.Non-Reactive: Antibodies to HCV were not detected; does not exclude the possibility of exposure to HCVReactive Results are presumptive evidence of antibodies to HCV. Follow CDC recommendations for supplemental testing.Order confirmation testing: HCV Quant by PCR testing - HCVPCR #[id number] Non Reactive: < 0.8 Equivocal: >/= 0.8 to < 1.0 Reactive: >/= 1.0The CDC requires that a reactive/equivocal HCV antibody result be sent out for confirmation. HCV Quant by PCR testing. Start: 09-23-2024 Procedure Greg Rich [facility] Work Phone: Start: 09-23-2024 Rubella IgG measurement Greg Rich [facility] [place] Work Phone: Comment on above: Antibody Result: InterpretationNon-React macario: Non-ImmuneReactive: ImmuneThe following results were obtained with the Elecsys Rubella IgG assay. Results from assays of other manufacturers cannot be used interchangeably. Start: 09-23-2024 Serologic test for syphilis Greg Blair [facility] Work Phone: Plan of Treatment Date Care Activity Detail Author Start: 03-24-2025 Patient discharge [facility] Start: 03-15-2025 Nonstress test [facility] Start: 03-15-2025 Obstetric monitoring [facility] Start: 03-15-2025 Vital signs measurements [facility] Start: 03-15-2025 [facility] Start: 03-15-2025 Patient discharge [facility] Start: 03-09-2025 Nonstress test [facility] Start: 03-09-2025 Obstetric monitoring [facility] Start: 03-09-2025 Vital signs measurements [facility] Start: 03-09-2025 [facility] Start: 03-09-2025 Patient discharge [facility] Start: 01-24-2025 CBC W Auto Different ial panel - Blood [facility] Start: 01-24-2025 Measurement of gluco se 2 hours after glucose challenge for glucose tolerance test [facility] Start: 01-24-2025 Serologic test for syphilis [facility] Start: 01-24-2025 [facility] CBC W Auto Different ial panel - Blood [facility] Erythrocyte mean corpuscular volume determination [facility] Hematocrit [Volume Fraction] of Blood [facility] Hemoglobin [Mass/vol ume] in Blood [facility] Leukocytes [#/volume ] in Blood [facility] Mean corpuscular hemoglobin concentration determination [facility] Mean corpuscular hemoglobin determination [facility] Measurement of gluco se 2 hours after glucose challenge for glucose tolerance test [facility] Neutrophil count [facility] Neutrophil percent differential count [facility] Patient Education Kick Counts ED False Labor OB Triage: Return to Hospital or Notify Physician if you Experience: [facility] Work Phone: Platelets [#/volume] in Blood [facility] Red blood cell count [facility] Red cell distributio n width determination [facility] Serologic test for syphilis [facility] Streptococcus agalac tiae [Presence] in Unspecified specimen by Organism specific culture [facility] Immunizations Immunization Date Immunization Notes Care Provider Dwayne samson 01-24-2025 tetanus toxoid, redu lashon diphtheria toxoid, and acellular pertussis vaccine, adsorbed Dr. Aye Dey DO Work Phone: [facility] 01-12-2021 tetanus toxoid, redu lashon diphtheria toxoid, and acellular pertussis vaccine, adsorbed [facility] Payers Date Payer Category Payer Self-pay [id number] 2024 Unknown [id number] 1989 Unknown [id number] 2.16.840.1.207546.3.579.2.479 1989 Unknown [id number] 2.16.840.1.698109.3.579.2479 1989 Unknown [id number] 2.16.840.1.271749.3.579.2.479 1989 Unknown [id number] 2.16.840.1.089045.3.579.2.479 1989 Unknown [id number] 2.16.840.1.924304.3.579.2.479 1989 Unknown [id number] 2.16.840.1.845133.3.579.2.479 1989 Unknown [id number] 2.16.840.1.378585.3.579.2.479 1989 Unknown [id number] 2.16.840.1.105689.3.579.2.479 Unknown [id number] Unknown [id number] 195 Unknown [id number] Unknown [facility] [id number] * * DO NOT USE [id number] Unknown [id number] 2.16.840.1.521777.3.579.2.462 Unknown [id number] 2.16.840.1.958975.3.579.2.462 Unknown [id number] 2.16.840.1.243564.3.579.2.462 Unknown [id number] 2.16.840.1.853125.3.579.2.462 Unknown [id number] 2.16.840.1.937840.3.579.2.462 Unknown [id number] 2.16.840.1.258886.3.579.2.462 Unknown [id number] 2.16.840.1.788033.3.579.2.462 Unknown [id number] 2.16.840.1.283903.3.579.2.462 Unknown [id number] 2.16.840.1.317830.3.579.2.462 Unknown [id number] 2.16.840.1.102258.3.579.2.462 Unknown [id number] 2.16.840.1.164466.3.579.2.462 Unknown [id number] 2.16.840.1.146641.3.579.2.462 Unknown [id number] 2.16.840.1.402282.3.579.2.462 Unknown [id number] 2.16.840.1.276892.3.579.2.462 Unknown [id number] 2.16.840.1.535338.3.579.2.462 Unknown [id number] 2.16.840.1.843659.3.579.2.462 Unknown [id number] 2.16.840.1.704115.3.579.2.462 Unknown [id number] 2.16.840.1.576725.3.579.2.462 Unknown [id number] 2.16.840.1.506058.3.579.2.462 Unknown [id number] 2.16.840.1.340431.3.579.2.462 Unknown [id number] 2.16.840.1.434498.3.579.2.462 Unknown [id number] 2.16840.1.321618.3.579.2.462 Unknown [id number] 2.16.840.1.551564.3.579.2.462 Unknown [id number] 2.16840.1.352886.3.579.2.462 Unknown [id number] 2.16.840.1.357191.3.579.2.462 Social History Date Type Detail Facility Start: 05-30-2021 Tobacco smoking stat [facility] Unknown if ever smoked [facility] Start: 1990 Sex Assigned At Female [facility] Start: 09-14-2024 Tobacco smoking stat RUSTIS Ex-smoker (finding) [facility] Start: 10-04-2024 End: 10-09-2024 Sex Female (finding) [facility] Medical Equipment Procedure Code Equipment Code Equipment Origin al Text Equipment Identifier Dates Blood Sugar Diagnostic (Advanced Gluc Meter Test Strip) strip Start: 03-07-2025 [facility] Start: 03-07-2025 Blood Sugar Diagnostic (Advanced Gluc Meter Test Strip) strip Start: 03-07-2025 [facility] Start: 03-07-2025 Blood Sugar Diagnostic (Advanced Gluc Meter Test Strip) strip Start: 03-07-2025 [facility] Start: 03-07-2025 Blood Sugar Diagnostic (Advanced Gluc Meter Test Strip) strip Start: 03-07-2025 [facility] Start: 03-07-2025 Blood Sugar Diagnostic (Advanced Gluc Meter Test Strip) strip Start: 03-07-2025 [facility] Start: 03-07-2025 Blood Sugar Diagnostic (Advanced Gluc Meter Test Strip) strip Start: 03-07-2025 [facility] Start: 03-07-2025 Clinical Notes 09-23-2024 to 03-24-2025 Note Date & Type Note Facility 03-24-2025 Progress note [facility] 03-24-2025 Progress note [facility] 03-21-2025 Progress note [facility] 03-15-2025 Progress note [facility] 02-22-2025 Progress note [facility] 12-16-2024 Evaluation note Diagnosis Onset Date Resolution [...] 2025 8:22am Abnormal glucose affecting acute February 07 9:17am Advanced maternal age (AMA) in acute February 07 9:17am Pre-existing severe obesity in mother affecting acute February 07 025 9:17am acute February 07 9:17am Rh negative state in antepartum period acute February 07 9:17am Supervision of high-risk acute February 07, 2025 9:17am Abnormal glucose affecting acute February 22, 2025 9:59am Advanced maternal age (AMA) in acute February 22, 2025 9:59am Pre-existing severe obesity in mother affecting acute February 22, 2025 9:59am acute February 22 025 9:59am Rh negative state in antepartum period acute February 22 025 9:59am Supervision of high-risk acute February 22 9:59am Abnormal glucose affecting acute March 09, 2025 8:54am Advanced maternal age (AMA) in acute March 09, 2025 8:54am Breech presentation acute 2024 8:54am Macrosomia [...] March 09, 2025 10:00am Breech presentation acute Aug2024 10:00am Macrosomia affecting management of mother, antepartum acute March 09 10:00am Polyhydramnios affecting acute March 09 10:00am Pre-existing severe obesity in mother affecting acute March 09, 2025 10:00am acute March 09, 025 10:00am Rh negative state in antepartum period acute March 09 10:00am Supervision of high-risk acute March 09 10:00am Breech presentation acute 2024 10:20am Macrosomia affecting management of mother, antepartum acute March 15, 025 10:20am Polyhydramnios affecting acute March 15, 025 10:20am acute March 15, 2025 10:20am Supervision of high-risk acute March 15, 10:20am Abnormal glucose affecting acute March 10:17am Advanced maternal age (AMA) in acute March 10:17am Breech presentation acute 2024 10:17am Macrosomia affecting management of mother, antepartum acute March 21, 025 10:17am Polyhydramnios affecting acute March 21 025 10:17am Pre-existing severe obesity in mother affecting acute March 10:17am acute March 21, 2025 10:17am Rh negative state in antepartum period acute March 21, 2025 10:17am Supervision of high-risk acute March 21 10:17am [facility] Work Phone: 1(698) 418-709406-05-2025 Evaluation note* Diagnosis Onset Date Resolution Status Admit Date Advanced maternal age (AMA) in acute December [...] affecting acute 2024 9:59am acute February 22, 9:59am Rh negative state in antepar caroline [...] affecting acute 2024 8:54am acute March 09, 8:54am Rh negative state in antepar caroline period acute March 09 8:54am Supervision of high-risk acute March 09 8:54am Abnormal glucose affecting acute March 09 10:00am Advanced maternal age (AMA) in acute March 09 10:00am Breech presentation acute 2024 10:00am Macrosomia affecting managem ent of mother, antepartum acute February 10:00am Polyhydramnios affecting acute March 09 10:00am Pre-existing severe obesity in mother affecting acute 2024 10:00am acute March 09, 025 10:00am Rh negative state in antepar caroline period acute March 09 10:00am Supervision of high-risk acute March 09 10:00am Breech presentation acute 2024 10:20am Macrosomia affecting managem ent of mother, antepartum acute March 15, 2025 10:20am Polyhydramnios affecting acute March 15, 10:20am acute March 15, 2025 10:20am Supervision of high-risk acute March 15, 10:20am Abnormal glucose affecting acute March 21, 10:17am Advanced maternal age (AMA) in acute March 21 10:17am Breech presentation acute 2024 10:17am Macrosomia affecting managem ent of mother, antepartum acute March 21, 2025 10:17am Polyhydramnios affecting acute March 21 10:17am Pre-existing severe obesity in mother affecting acute 2024 10:17am acute March 21, 2025 10:17am Rh negative state in antepar caroline period acute March 21 10:17am Supervision of high-risk acute March 21 10:17am Abnormal glucose affecting acute March 24, 2025 10:17am Advanced maternal age (AMA) in acute March 24, 2025 10:17am Breech presentation acute 2024 10:17am Macrosomia affecting managem ent of mother, antepartum acute March 24, 2025 10:17am Polyhydramnios affecting acute March 24, 2025 10:17am Pre-existing severe obesity in mother affecting acute 2024 10:17am acute March 10:17am Rh negative state in antepar caroline period acute March 24, 2025 10:17am Supervision of high-risk acute March 24, 2025 10:17am [facility] Work Phone: 1(268) 187-954906-05-2025 [facility] [address] [place] [address], [address] [place] [address] OFFICE VISIT Date of Service: 12/16/24 MR#: [id number] Acct: [id number] Name: DEMETRIUS FERNANDES Rep #: [id number] : 1990 Provider: Dr. Luther Zhong MD Age/Sex: 34/F Location: [facility] Status: Signed Intake Vital Signs 09/23/24 09:08 [...] occupational status: employed and unemployed current occupation: [employer] current occupational exposures/hazards: No pets and [...] 1-2 times per week duration: 30-45 minutes/day parul/islam: None seatbelt use: always do you feel safe at home: Yes additional social history: - 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 Date Name GA/Weeks Outcome Route Bth Weight Gen Labor Lgth Anesthesia Del Locatn Provider FOB 04/14/21 Tim[place] 41 live - full term 8#2oz Male epidur al [facility] GP Froilan Delivery Date: 04/14/21 Last Updated [...] NIPT-very concerned about weight with this . [facility] anatomy order placed 10/22/24 -?-?-?-?-?-?-?-?-?-?-?-?- 14w 5d 312 lb 2 oz (+3 lb 2 oz) 119/76 Negative -?-?-?-?-?-?-?-?-?-?-?-?- Negative 168 -?-?-?-?-?-?-?-?-?-?-?-?- JV- nipt was inc onclusive. plan for afp between 17-21 weeks. anatomy scan with [facility]. 11/17/24 -?-?-?-?-?-?-?-?-?-?-?-?- 18w 3d 317 lb [...] higinio MEDINA> Date _ Fiordaliza Zhong MD Cosigner Signature: Date (if applicable) CC: ~ [facility]05-07-2025 Evaluation note* Diagnosis Onset Date Resolution Status [...] affecting acute 2024 9:59am acute February 22, 9:59am Rh negative state in antepartum period acute February 22 9:59am Supervision of high-risk acute February 22 9:59am [facility] Work Phone: 1([phone]) 726-566405-07-2025 Evaluation note* Diagnosis Onset Date Resolution Status [...] Pre-existing severe obesity in mother affecting acute Carmita 14th, 2025 8:22am acute January 24 8:22am Rh [...] affecting acute 2024 9:59am acute February 22, 9:59am Rh negative state in antepar caroline [...] Supervision of high-risk acute March 09 8:54am [facility] Work Phone: 1(778) 543-209805-07-2025 Evaluation note* Diagnosis Onset Date Resolution Status [...] affecting acute 2024 8:54am acute March 09, 8:54am Rh negative [...] severe obesity in mother affecting acute 2024 10:00am acute March 09, 10:00am Rh negative state in antepartum period acute March 09, 10:00am Supervision of high-risk acute March 09 10:00am Breech presentation acute 2024 10:20am Macrosomia affecting management of mother, antepartum acute March 15, 10:20am Polyhydramnios affecting acute March 15, 10:20am acute March 15, 2025 10:20am Supervision of high-risk acute March 15, 10:20am [facility] Work Phone: 1(358) 136-782704-11-2025 Evaluation note* Diagnosis Onset Date Resolution Status [...] of high-risk acute January 24, 2025 8:22am [facility] Work Phone: 1(673) 195-766804-11-2025 Evaluation note* Diagnosis Onset Date Resolution Status [...] of high-risk acute February 07, 2025 9:17am [facility] Work Phone: 1(103) 451-744103-13-2025 NotePap Smear Specimen AdequacyMarch 2024 11:59pmComment.Satisfactory for evaluation. No endocervical component is identified.An endocervical component is not commonly seen in the patient.[facility] A#[id number] HospitalCommclaren [place] on above: Satisfactory for evaluation. No endocervical component is identified.An endocervical component is not commonly seen in the patient.09-23-2024 NotePap Smear Specimen AdequacyMarch 2024 11:59pmComment.Satisfactory for evaluation. No endocervical component is identified.An endocervical component is not commonly seen in the patient.[facility] A#[id number] [facility] HospitalComment on above:Satisfactory for evaluation. No endocervical [...] high-risk acute September 23, 2024 8:56am [facility] Work Phone: 1([phone]) 188-183503-13-2025 Evaluation note* Diagnosis Onset Date Resolution Status [...] high-risk acute November 17, 2024 8: 37am [facility] Work Phone: 1(663) 542-913703-13-2025 Evaluation note* Diagnosis Onset Date Resolution Status [...] high-risk acute December 16, 2024 9 :02am [facility] Work Phone: Evaluation noteNo assessment information available [facility] Work Phone: Hospital Discharge instructionsAdditional Instructions Scheduled non-stress tests in WP: Friday, 3 9am [facility] Work [facility]: Progress note Author Fiordaliza Zhong [facility] Note Date/Time December 16, 2024 9:30a m [facility] [address], [address] [place] [address] OFFICE VISIT Date of Service: 12/16/24 MR#: [id number] Acct: [id number] Name: NICHELLE FERNANDESALAN Vargas Rep #: [id number] : 1990 Provider: Dr. Luther Zhong MD Age/Sex: 34/F Location: [facility] Status: Signed Intake Vital Signs 09/23/24 09:08 [...] occupational status: employed and unemployed current occupation: [employer] current occupational exposures/hazards: No pets [...] 1-2 times per week duration: 30-45 minutes/day parul/islam: None seatbelt use: always do you feel [...] Lgth Anesthesia Del Locatn Provider FOB 04/14/21 [place] 41 live - full term 8#2oz Male epidur al [facility] GP Froilan Delivery Date: 04/14/21 Last Updated [...] NIPT-very concerned about weight with this . M anatomy order placed 10/22/24 -?-?-?-?-?-?-?-?-?-?-?-?- 14w 5d 312 lb 2 oz (+3 lb 2 oz) 119/76 Negative -?-?-?-?-?-?-?-?-?-?-?-?- Negative 168 -?-?-?-?-?-?-?-?-?-?-?-?- JV- nipt was inc onclusive. plan for afp between 17-21 weeks. anatomy scan with [facility]. 11/17/24 -?-?-?-?-?-?-?-?-?-?-?-?- 18w 3d 317 lb [...] and Symptoms of Preeclampsia, Feeding No , [employer] Medical Leave or Disability [...] Cosigner Signature: Date (if applicable) CC: ~ [facility] Work Phone: Progress note Author Greg Rich [facility] Note Date/Time February 22, 2025 10 :18am [facility] [address] [place] [address], [address] [place] [address] OFFICE VISIT Date of Service: 02/22/25 MR#: [id number] Acct: [id number] Name: DEMETRIUS FERNANDES Rep #: [id number] : 1990 Provider: ZACHARY Rich Age/Sex: 34/F Location: [facility] Status: Signed Intake Vital Signs 01/12/25 09:43 02/07/25 09:25 02/22/25 10:03 Height 5 ft 9 in 5 ft 9 in 5 ft 9 in Weight: 338 lb 1 oz BMI 49.9 BP 132/76 H Intake Visit Reasons: 32 wk ob Chief Complaint: 32 wk OB Sorter/Assay Tech Required: No Is patient in pain?: No [...] occupational status: employed and unemployed current occupation: [employer] current occupational exposures/hazards: No pets [...] 1-2 times per week duration: 30-45 minutes/day parul/islam: None seatbelt use: always do you feel safe at home: Yes additional social history: - 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 Date Name GA/Weeks Outcome Route Bth Weight Infant Gen Labor Lgth Anesthesia Del Locatn Provider FOB 04/14/21 [place] 41 live - full term 8#2oz Male epidur al [facility] GP Froilan Delivery Date: 10/02/21 Last Updated by: Simi Zarate 2nd degree [...] oz) 126/80 Negative -?-?-?-?-?-?-?-?-?-?-?-?- Negative 148 -?-?-?-?-?-?-?-?-?-?-?-?- -No VB. Dao gutierrez. Denies concerns. AFP today. 12/16/24 -?-?-?-?-?-?-?-?-?-?-?-?- 22w 4d 320 lb (+11 lb) 119/69 Negative -?-?-?-?-?-?-?-?-?-?-?-?- Negative 145 -?-?-?-?-?-?-?-?-?-?-?-?- - no vb lof go od fm no [...] 124/72 Negative -?-?-?-?-?-?-?-?-?-?-?-?- Negative 141 29 -?-?-?-?-?-?-?-?-?-?-?-?- MH-No VB, LOF. G ood Fm. Rhogam, tdap, [...] and Symptoms of Preeclampsia, Feeding No , [place] [employer] Family Medical Leave or Disability [...] fallen in the past year?: No 02/22/25 4347 <Electronically signed by Greg heredia CNM> Date _ Greg Rich CNM Cosignpetros Signature: Date (if applicable) CC: ~ [facility] Work Phone: Progress note Author [facility]iza [facility] Note Date/Time March 15, 2025 11:12am [facility] Medical Records Department [address] [place] [address] OB Triage Progress Note 03/15/25 1110 MR#: [id number] Acct: [id number] Name: DEMETRIUS FERNANDES Rep #:[id number] : 1990 34 From: Fiordaliza moctezuma MD PCP: Dr. Delmar Luna MD Status :REG CLI Y DOS: Location: [place] [address] Progress Notes Date of Service: 03/15/25 Progress Note: Patient presents for triage evaluation secondary to polyhydramnios FHT: 130-135 Moderate variability reactive no decelerations category I tracing Elsa: no regular Contractions Assessment and plan: polyhydramnios 35 weeks Reactive NST, reassuring maternal and status patient discharged to home to follow-up as scheudled. See problem list details for additional plan information. Charges/Coding Procedures Urinary/Genital 52xxx-59xxx: 79304-71 non-stress test Interp Assessment & Plan (1) [...] Delmar Luna MD; Dr. Fiordaliza Zhong MD ~ Signed [facility] Work Phone: Progress note Author Fiordaliza Zhong [facility] Note Date/Time March 21, 2025 11:06am [facility] [address] [place] [address], [address] [place] [address] OFFICE VISIT Date of Service: 03/21/25 MR#: [id number] Acct: [id number] Name: DEMETRIUS FERNANDES Rep #: [id number] : 1990 Provider: Dr. Luther Zhong MD Age/Sex: 34/F Location: [facility] Status: Signed Intake Vital Signs 01/24/25 08:40 03/09/25 10:29 03/15/25 10:40 03/21/25 10:29 Height 5 ft 9 in 5 ft 9 in 5 ft 9 in 5 ft 9 in Weight: 342 lb 6 oz BMI 50.5 BP 127/72 H Intake Visit Reasons: 36 wk ob Sorter/Assay Tech Required: No Is patient in pain?: No [...] Rx blood sugar diagnostic (Advanced #100 ea 03/07/2503/07 Rx Glucose Meter Test Strips) flash glucose scanning reader #1 ea 03/07/25 03/21/25 Rx (FreeStyle Hardeep 2 [place]) lancets #200 ea 03/07/25 03/21/25 Rx Last [...] occupational status: employed and unemployed current occupation: [employer] current occupational exposures/hazards: No pets and animals: [...] 1-2 times per week duration: 30-45 minutes/day parul/islam: None seatbelt use: always do you feel safe at home: Yes additional social history: - 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 Date Name GA/Weeks Outcome Route Bth Weight Infant Gen Labor Lgth Anesthesia Del Locatn Provider FOB 04/14/21 Timmy 41 live - full term 8#2oz Male epidur al [facility] GP Froilan Delivery Date: 04/14/21 Last Updated [...] oz) 126/80 Negative -?-?-?-?-?-?-?-?-?-?-?-?- Negative 148 -?-?-?-?-?-?-?-?-?-?-?-?- -No VB. Dao gutierrez. Denies concerns. AFP today. 12/16/24 -?-?-?-?-?-?-?-?-?-?-?-?- 22w 4d 320 lb (+11 lb) 119/69 Negative -?-?-?-?-?-?-?-?-?-?-?-?- Negative 145 -?-?-?-?-?-?-?-?-?-?-?-?- - no vb lof go od fm no [...] 124/72 Negative -?-?-?-?-?-?-?-?-?-?-?-?- Negative 141 29 -?-?-?-?-?-?-?-?-?-?-?-?- MH-No VB, LOF. G ood Fm. Rhogam, tdap, [...] and Symptoms of Preeclampsia, Feeding No , [place] Education and Family Medical Leave or Disability [...] Cosigner Signature: Date (if applicable) CC: ~ [facility] Work Phone: Progress note Author Fiordaliza Zhong [facility] Note Date/Time March 24, 2025 10:05am [facility] Medical Records Department [address] [place] [address] OB Triage Progress Note 03/24/25 1004 MR#: [id number] Acct: [id number] Name: DEMETRIUS FERNANDES Rep #:[id number] : 1990 34 From: Fiordaliza moctezuma MD PCP: Dr. Delmar Luna MD Status :REG CLI Y DOS: Location: [place] [address] Progress Notes Date of Service: 03/24/25 Progress Note: Patient presents for triage evaluation secondary to polyhydramnios FHT: 135 Moderate variability reactive no decelerations category I tracing Elsa: no regular Contractions Assessment and plan: 36 weeks severe polyhydramnios Reactive NST, reassuring maternal and status patient discharged to home to follow-up as scheduled. See problem list details for additional plan information. Charges/Coding Procedures Urinary/Genital 52xxx-59xxx: [id number] non-stress test Interp 03/24/25 1005 <Electronically signed by Fiordaliza sylvester MD> Date _ Fiordaliza Castellano Signature (if applicable): Date CC: Dr. Delmar Luna MD; Dr. Fiordaliza Zhong MD ~ Signed [facility] Work Phone: Progrodv note Author Fiordaliza Zhong [facility] Note Date/Time March 24, 2025 11:11am [facility] [address], [address] [place] [address] OFFICE VISIT Date of Service: 03/24/25 MR#: [id number] Acct: [id number] Name: DEMETRIUS FERNANDES Rep #: [id number] : 1990 Provider: Dr. Luther Zhong MD Age/Sex: 34/F Location: [facility] Status: Signed Intake Vital Signs 03/24/25 09:10 03/24/25 10:26 Height 5 ft 9 in 5 ft 9 in Weight: 345 lb 9 oz BMI 51.0 BP 132/76 H Intake Visit Reasons: 37wk ob before csection *per Sorter/Assay Tech Required: No Is patient in pain?: No Allergies No Known Allergies Allergy (Verified 03/24/25 10:32) Medications ?Medication ?Instructions ?Recorded ?Confirmed ?Type multivitamin no.47-iron fum 27 1 cap PO DAILY pregnanc y 08/29/20 03/24/25 History mg-folate no.1 1 mg-dha 300 mg capsule (PNV-DHA) famotidine 40 mg tablet (Pepcid) 40 mg PO BID PRN hear tburn #30 tabs 01/12/25 03/24/25 Rx alcohol swabs (Alcohol Wipes) 1 pad topical DAILY #100 ea 03/07/25 03/24/25 Rx blood sugar diagnostic (Advanced #100 ea 03/07/2503/14 Rx Glucose Meter Test Strips) flash glucose scanning reader #1 ea 03/07/25 03/24/25 Rx (FreeStyle Hardeep 2 [place]) lancets #200 ea 03/07/25 03/24/25 Rx Last Menstrual Period: 07/11/24 Zika: Zika [...] occupational status: employed and unemployed current occupation: [employer] current occupational exposures/hazards: No pets and [...] 1-2 times per week duration: 30-45 minutes/day parul/islam: None seatbelt use: always do you feel safe at home: Yes additional social history: - Froilan AUGUSTINE @ [facility] 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 Date Name GA/Weeks Outcome Route Bth Weight Infant Gen [facility] F[facility] 04/14/21 Timmy 41 live - full term 8#2oz Male epidur al [facility] GP Froilan Delivery Date: 04/14/21 Last Updated by: Simi Zarate 2nd degree laceration HPI 37wk ob before csection *per Details: DEMETRIUS FERNANDES is a 34 year old who presents for routine OB visit. OB Visit MEET Calculator Estimated Delivery Date Method Current WG Current Estimate 04/17/25 LMP (Certain) 36w 4d Other Estimates 04/14/25 Ultrasound #1 37w 0d Expected Delivery Route/Plan LTCS Labor Preferences- CB/BF classes: no labor support [...] Date -?-?-?-?-?-?-?-?-?-?-?-?- EGA Weight BP Urine Prot -?-?-?-?-?-?-?-?-?--?-?-?- Glucose FHR FuHt Pres Dilation -?-?-?-?-?-?-?-?-?-?-?-?- Effaced [...] oz) 126/80 Negative -?-?-?-?-?-?-?-?-?-?-?-?- Negative 148 -?-?-?-?-?-?-?-?-?-?-?-?- -No VB. Dao gutierrez. Denies concerns. AFP today. 12/16/24 -?-?-?-?-?-?-?-?-?-?-?-?- 22w 4d 320 lb (+11 lb) 119/69 Negative -?-?-?-?-?-?-?-?-?-?-?-?- Negative 145 -?-?-?-?-?-?-?-?-?-?-?-?- - no vb lof go od fm no regular ctx 01/12/25 -?-?-?-?-?-?-?-?-?-?-?-?- 26w 3d 328 lb 8 oz (+19 lb 8 oz) 130/82 Negative -?--?-?-?-?-?-?-?-?-?-?-?- Negative 147 27 -?-?-?-?-?-?-?-?-?-?-?-?- -No VB, LOF. [...] oz (+30 lb 6 oz) 136/85 Negative -?-?-?-?-?-?-?-?-?-?-?-?- Negative 141 40 -?-?-?-?-?-?-?-?-?-?-?-?- JV- MIKE is [...] oz) 127/72 Negative -?-?-?-?-?-?-?-?-?-?-?-?- Negative 140 45 -?-?-?-?-?-?-?-?-?-?-?-?- SM - no vb lof g ood fm no reuglar ctx BS stable 03/24/25 -?-?-?-?-?-?-?-?-?-?-?-?- 36w 4d 345 lb 9 oz (+36 lb 9 oz) 132/76 -?-?-?-?-?-?-?-?-?-?-?-?- 135 -?-?-?-?-?-?-?-?-?-?-?-?- SM- further ques tions answered, ready for csection ACOG First Trimester First Trimester: Desire for [...] and Symptoms of Preeclampsia, Feeding No , [place] Education and Family Medical Leave or Disability Forms ROS Const Reports system reviewed and no additional complaints, except as documented Card Reports system reviewed and no additional complaints, except as documented Resp Reports system reviewed and no additional complaints, except as documented GI Reports system reviewed and no additional complaints, except as documented and Reports nausea Reports system reviewed and no additional complaints, except as documented Musc Reports system reviewed and no additional complaints, except as documented Exam Const General: cooperative, healthy appearing, comfortable and anxious HENIL Head: normal to inspection Nose: external nose normal Face and sinus: normal facial exam Neck Neck: normal visual inspection, full ROM and no lymphadenopathy Thyroid: thyroid normal Chest Chest palpation & inspection: normal inspection of the chest Resp Effort & Inspection: normal respiratory effort GI Inspection: normal to inspection Palpation: soft and other (gravid uterus) Other: infant vertex and appropriate size for gestational age Other: Cervical Exam: Extrem General: pedal edema Coding Level of Care Code OB Routine [...] second trimester Comment: PRR, , MEET 04/17/25, jennifer Warner, Froilan (7) : Status: Acute Qualifiers: Weeks [...] 34 on, growth US 32 and 36. 03/24/25 1111 <Electronically signed by Fiordaliza sylvester MD> Date _ Fiordaliza Zhong MD [facility] Signature: Date (if applicable) CC: ~ [facility] Work Phone: Reason for referral (narrative)No reason for referral information availableWKeenan [facility] Work Phone: Chief Complaint and Reason for Visit Chief Complaint EORDER Chief Complaint Admit Date 10 WK NOB September 23, 2024 8:5 6am Reason for Visit Admit Date Advanced maternal age (AMA) in September 23, 2024 8:56am Former smoker, stopped smoking in past September 23, 2024 8:56am Pre-existing severe obesity in mother af fecting September 23, 2024 8:56am September 23, 2024 8:5 6am Rh negative state in antepartum period [facility] 2024 8:56am Spider veins of both lower extremities [facility] 2024 8:56am Supervision of high-risk September 23, [...] 6am Rh negative state in antepartum period [facility] 2024 8:56am Spider veins of both lower extremities [facility] 2024 8:56am Supervision of high-risk September 23, 2024 8:56am Advanced maternal age (AMA) in October 22, 2024 10:13am Former smoker, stopped smoking in past October 22, 2024 10:13am Pre-existing severe obesity [...] 172024 8:37am Former smoker, stopped smoking in t past November 17, 2024 8:37am Spider [...] Rh negative state in antepartum period [facility] 2024 9:02am Supervision of high-risk December 16, 2024 9:02am Advanced maternal age (AMA) in January 12, 2025 9:40am Pre-existing severe obesity in mother af fecting January 12, 2025 9:40am January 12, 2025 9:40a m Rh negative state in antepartum period J [facility] 2024 9:40am Supervision of high-risk January 12, 2025 9:40am Advanced maternal age (AMA) in January 24, 2025 8:22am Pre-existing severe obesity in mother af fecting January 24, 2025 8:22am January 24, 2025 8:22 am Rh negative state in antepartum period J [facility] 2024 8:22am Supervision of high-risk January 24, 2025 8:22am Chief Complaint Admit Date 14wk OB October 22, 2024 10: 13am 18wk ob November 17, 2024 8:37am 22wk ob December 16, 2024 9:02a m 26 wk ob January 12, 2025 9:40a m 28wk ob/glucose/rhogam January 24, 2025 8 :22am Abnormal glucose complicating January 25, 2025 6:45am Chief Complaint Admit Date 14wk OB October [...] Rh negative state in antepartum period J [facility] 2024 9:17am Supervision of high-risk February 07, [...] Rh negative state in antepartum period J [facility] 2024 9:02am Supervision of high-risk December 16, [...] Rh negative state in antepartum period J [facility] 2024 8:22am Supervision of high-risk January 24, 2025 8:22am Abnormal glucose affecting Jan 9:17am Advanced maternal age (AMA) in February 07, 2025 9:17am Pre-existing severe obesity in mother af fecting February 07, 2025 9:17am February 07, 2025 9:17 am Rh negative state in antepartum period J [facility] 2024 9:17am Supervision of high-risk February 07, 2025 9:17am Abnormal glucose affecting Feb ust 2024 9:59am Advanced maternal age (AMA) [...] m Rh negative state in antepartum period [facility] 2024 9:02am Supervision of high-risk December 16, 2024 9:02am Advanced maternal age (AMA) in January 12, 2025 9:40am Pre-existing severe obesity in mother af fecting January 12, 2025 9:40am January 12, 2025 9:40a m Rh negative state in antepartum period [facility] 2024 9:40am Supervision of high-risk January 12, 2025 9:40am Advanced maternal age (AMA) in January 24, 2025 8:22am Pre-existing severe obesity in mother af fecting January 24, 2025 8:22am January 24, 2025 8:22 am Rh negative state in antepartum period J [facility] 2024 8:22am Supervision of high-risk January 24, 2025 8:22am Abnormal glucose affecting Axel 2024 9:17am Advanced maternal age (AMA) in February 07, 2025 9:17am Pre-existing severe obesity in mother af fecting February 07, 2025 9:17am February 07, 2025 9:17 am Rh negative state in antepartum period J [facility] 2024 9:17am Supervision of high-risk February 07, 2025 9:17am Abnormal glucose affecting Aug ust 2024 9:59am Advanced maternal age (AMA) in February 22, 2025 9:59am Pre-existing severe obesity in mother af fecting February 22, 2025 9:59am February 22, 2025 9: 59am Rh negative state in antepartum period A ugust 2024 9:59am Supervision of high-risk Augus t 2024 9:59am Abnormal glucose affecting Aug ust 2024 8:54am Advanced maternal age (AMA) [...] t 2024 8:54am Chief Complaint Admit Date wk ob November 17, 2024 8:37am 22wk ob [...] 2025 10 :00am Chief Complaint Admit Date wk ob November 17, 2024 8:37am 22wk ob [...] Rh negative state in antepartum period [facility] 2024 9:02am Supervision of high-risk December 16, 2024 9:02am Advanced maternal age (AMA) in January 12, 2025 9:40am Pre-existing severe obesity in mother af fecting January 12, 2025 9:40am January 12, 2025 9:40a m Rh negative state in antepartum period J [facility] 2024 9:40am Supervision of high-risk January 12, 2025 9:40am Advanced maternal age (AMA) in January 24, 2025 8:22am Pre-existing severe obesity in mother af fecting January 24, 2025 8:22am January 24, 2025 8:22 am Rh negative state in antepartum period J [facility] 2024 8:22am Supervision of high-risk January 24, 2025 8:22am Abnormal glucose affecting Axel 2024 9:17am Advanced maternal age (AMA) in February 07, 2025 9:17am Pre-existing severe obesity in mother af fecting February 07, 2025 9:17am February 07, 2025 9:17 am Rh negative state in antepartum period J [facility] 2024 9:17am Supervision of high-risk February 07, 2025 9:17am Abnormal glucose affecting Aug ust 2024 9:59am Advanced maternal age (AMA) in February 22, 2025 9:59am Pre-existing severe obesity in mother af fecting February 22, 2025 9:59am February 22, 2025 9: 59am Rh negative state in antepartum period A [facility] 2024 9:59am Supervision of high-risk Augus 2024 9:59am Abnormal glucose affecting Feb ust [...] Rh negative state in antepartum period A [facility] 2024 8:54am Supervision of high-risk Augus t [...] Rh negative state in antepartum period A [facility] 2024 10:00am Supervision of high-risk Augus t 2024 10:00am Breech presentation March 15, 2025 10:20am Macrosomia affecting management of mothe r, antepartum March 15, 2025 10:20am Polyhydramnios affecting Septe mb 2024 10:20am March 15, 2025 10:20am Supervision of high-risk Septe [facility] 2024 10:20am Chief Complaint Admit Date 22wk [...] Rh negative state in antepartum period J [facility] 2024 9:02am Supervision of high-risk December 16, 2024 9:02am Advanced maternal age (AMA) in January 12, 2025 9:40am Pre-existing severe obesity in mother af fecting January 12, 2025 9:40am January 12, 2025 9:40a m Rh negative state in antepartum period J [facility] 2024 9:40am Supervision of high-risk January 12, 2025 9:40am Advanced maternal age (AMA) in January 24, 2025 8:22am Pre-existing severe obesity in mother af fecting January 24, 2025 8:22am January 24, 2025 8:22 am Rh negative state in antepartum period J [facility] 2024 8:22am Supervision of high-risk January 24, 2025 8:22am Abnormal glucose affecting Jan 9:17am Advanced maternal age (AMA) in February 07, 2025 9:17am Pre-existing severe obesity in mother af fecting February 07, 2025 9:17am February 07, 2025 9:17 am Rh negative state in antepartum period J [facility] 2024 9:17am Supervision of high-risk February 07, 2025 9:17am Abnormal glucose affecting Aug us2024 9:59am Advanced maternal age (AMA) in February 22, 2025 9:59am Pre-existing severe obesity in mother af fecting February 22, 2025 9:59am February 22, 2025 9: 59am Rh negative state in antepartum period A [facility] 2024 9:59am Supervision of high-risk Augus t 2024 9:59am Abnormal glucose affecting Aug ust 2024 8:54am Advanced maternal age (AMA) in March 09, 2025 8:54am Breech presentation March 09, 2025 8: 54am Macrosomia affecting management of mothe r, antepartum March 09, 2025 8:54am Polyhydramnios affecting Augus t 2024 8:54am Pre-existing severe obesity in mother af fecting March 09, 2025 8:54am March 09, 2025 8: 54am Rh negative state in antepartum period A [facility] 2024 8:54am Supervision of high-risk Augus t [...] Rh negative state in antepartum period A [facility] 2024 10:00am Supervision of high-risk Augus t 2024 10:00am Breech presentation March 15, 2025 10:20am Macrosomia affecting management of mothe r, antepartum March 15, 2025 10:20am Polyhydramnios affecting Septe mber 2024 10:20am March 15, 2025 10:20am Supervision of high-risk Septe mber 2024 10:20am Abnormal glucose affecting Sep tember 2024 10:17am Advanced maternal age (AMA) in March 21, 2025 10:17am Breech presentation March 21, 2025 10:17am Macrosomia affecting management of mothe r, antepartum March 21, 2025 10:17am [facility] 2024 10:17am Pre-existing severe obesity in mother af fecting March 21, 2025 10:17am March 21, 2025 10:17am Rh negative state in antepartum period S eptember 2024 10:17am Supervision of high-risk [facility] 2024 10:17am Chief Complaint Admit Date 22wk ob December [...] 36 wk ob March 21, 2025 10:17am NST March 24, 2025 9:00am NST March 24, 2025 10:04am 37wk ob before csection *per Septembe r 2024 10:17am Reason for Visit Admit Date Advanced maternal age (AMA) in December 16, 2024 9:02am Pre-existing severe obesity in mother affecting December 16, 2024 9:02am December 16, 2024 9:02a m Rh negative state in antepartum period J une 2024 9:02am Supervision of high-risk December 16, 2024 9:02am Advanced maternal age (AMA) in January 12, 2025 9:40am Pre-existing severe obesity in mother affecting January 12, 2025 9:40am January 12, 2025 9:40a m Rh negative state in antepartum period J michael 2024 9:40am Supervision of high-risk January 12, 2025 9:40am Advanced maternal age (AMA) in January 24, 2025 8:22am Pre-existing severe obesity in mother affecting January 24, 2025 8:22am January 24, 2025 8:22 am Rh negative state in antepartum period J michael2024 8:22am Supervision of high-risk January 24, 2025 8:22am Abnormal glucose affecting Axel 2024 9:17am Advanced maternal age (AMA) in February 07, 2025 9:17am Pre-existing severe obesity in mother affecting February 07, 2025 9:17am February 07, 2025 9:17 am Rh negative state in antepartum period J michael2024 9:17am Supervision of high-risk February 07, 2025 9:17am Abnormal glucose affecting Feb 9:59am Advanced maternal age (AMA) in February 22, 2025 9:59am Pre-existing severe obesity in mother affecting February 22, 2025 9:59am February 22, 2025 9: 59am Rh negative state in antepartum period A 2024 9:59am Supervision of high-risk Febus 2024 9:59am Abnormal glucose affecting Feb us2024 8:54am Advanced maternal age (AMA) in March 09, 2025 8:54am Breech presentation March 09, 2025 8: 54am Macrosomia affecting management of mothe r, antepartum March 09, 2025 8:54am Polyhydramnios affecting Augus t 2024 8:54am Pre-existing severe obesity in mother affecting March 09, 2025 8:54am March 09, 2025 [...] 2024 10:00am Pre-existing severe obesity in mother affecting March 09, 2025 10:00am March 09, 2025 10 :00am Rh negative state in antepartum period A ugust 2024 10:00am Supervision of high-risk Augus t 2024 10:00am Breech presentation March 15, 2025 10:20am Macrosomia affecting management of mothe r, antepartum March 15, 2025 10:20am Polyhydramnios affecting Septe [facility] 2024 10:20am March 15, 2025 10:20am Supervision of high-risk Septe [facility] 2024 10:20am Abnormal glucose affecting Sep [facility]2024 10:17am Advanced maternal age (AMA) in March 21, 2025 10:17am Breech presentation March 21, 2025 10:17am Macrosomia affecting management of mothe r, antepartum March 21, 2025 10:17am [facility]ios [facility] 2024 10:17am Pre-existing severe obesity in mother affecting March 21, 2025 10:17am March 21, 2025 10:17am Rh negative state in antepartum period [facility]2024 10:17am Supervision of high-risk [facility] 2024 10:17am Abnormal glucose affecting Sep [facility]2024 10:17am Advanced maternal age (AMA) in March 24, 2025 10:17am Breech presentation March 24, 2025 10:17am Macrosomia affecting management of mothe r, antepartum March 24, 2025 10:17am Polyhydramnios affecting Septe [facility] 2024 10:17am Pre-existing severe obesity in mother affecting March 24, 2025 10:17am March 24, 2025 10:17am Rh negative state in antepartum period S eptember 2024 10:17am Supervision of high-risk Septe [facility] 2024 10:17am Family History No Family History Records Found Relationship Condition Age at Onset Recorded Date/T ramakrishna grandfather Diabetes mellitus Unknown uncle Aortic aneurysm Unknown Relationship Condition Age at Onset Recorded Date/T ramakrishna grandfather Diabetes mellitus Unknown uncle Aortic aneurysm Unknown grandmother Aortic aneurysm Unknown Advance Directives No Advanced Directives Records Found Advance Directive Response Recorded Date/ Time Living Will No April 13 8:08pm Power of Wrapper Opener No April 13 021 8:08pm Summary Purpose [...] Rincon MD Family Provider Active Cristina Barros , DO Primary Care Provider Active Team Status: Inactive Member Role Status Dates Cristina Barros , Primary Care Provi radha, Attending Provider, Referring [...] End: October 04, 2024 Dr. Aye Dey , DO Referring Provider Activ e Start: October 04, 2024 End: October 04, 2024 Team Status: Inactive Member Role Status Dates Dr. Aye Dey DO Attending Provider Activ e Start: October 22, 2024 End: October 22, 2024 Team Status: Inactive Member Role Status Dates Erick Rodriguez TUNG NUT GROWER, TUNG NUT GROWER-C Attending Provider Active Start: November 17, 2024 End: November 17, 2024 Team Status: Inactive Member Role Status Dates Erick Rodriguez TUNG NUT GROWER, TUNG NUT GROWER-C Attending Provider Active Start: November 17, 2024 End: November 17, 2024 Erick Rodriguez TUNG NUT GROWER, TUNG NUT GROWER-C Referring Provider Active Start: November 17, 2024 [...] Inactive Member Role/Relationship Status Dates Erick Rodriguez TUNG NUT GROWER, TUNG NUT GROWER-C Attending Provider Active Start: November 17, 2024 End: November 17, 2024 Team Status: Inactive Member Role/Relationship Status Dates Erick Rodriguez TUNG NUT GROWER, TUNG NUT GROWER-C Attending Provider Active Start: November 17, 2024 End: November 17, 2024 Erick Rodriguez TUNG NUT GROWER, TUNG NUT GROWER-C Referring Provider Active Start: November 17, 2024 End: November 17, 2024 Team Status: Inactive Member Role/Relationship Status Dates Dr. Fiordaliza Zhong MD Attending Provider Active Start: December 16, 2024 End: December 16, 2024 Team Status: Inactive Member Role/Relationship Status Dates Erick Brooks TUNG NUT GROWER, TUNG NUT GROWER-C Attending Provider Active Start: January 12, 2025 [...] Inactive Member Role/Relationship Status Dates Erick Brooks TUNG NUT GROWER, TUNG NUT GROWER-C Attending Provider Active Start: November 17, 2024 End: November 17, 2024 Team Status: Inactive Member Role/Relationship Status Dates Erick Brooks TUNG NUT GROWER, TUNG NUT GROWER-C Attending Provider Active Start: November 17, 2024 End: November 17, 2024 Erick Lafayette TUNG NUT GROWER, TUNG NUT GROWER-C Referring Provider Active Start: November 17, 2024 End: November 17, 2024 Team Status: Inactive Member Role/Relationship Status Dates Dr. Fiordaliza Zhong MD Attending Provider Active Start: December 16, 2024 End: December 16, 2024 Team Status: Inactive Member Role/Relationship Status Dates Erick Lafayette TUNG NUT GROWER, TUNG NUT GROWER-C Attending Provider Active Start: January 12, 2025 End: January 12, 2025 Team Status: Inactive Member Role/Relationship Status Dates Erick Lafayette TUNG NUT GROWER, TUNG NUT GROWER-C Attending Provider Active Start: January 24, 2025 End: January 24, 2025 Team Status: Active Member Role/Relationship Status Dates Erick Lafayette TUNG NUT GROWER, TUNG NUT GROWER-C Attending Provider Active Start: January 24, 2025 [...] Status: Inactive Member Role/Relationship Status Dates Erick Lafayette TUNG NUT GROWER, TUNG NUT GROWER-C Attending Provider Active Start: November 17, 2024 End: November 17, 2024 Team Status: Inactive Member Role/Relationship Status Dates Erick Lafayette TUNG NUT GROWER, TUNG NUT GROWER-C Attending Provider Active Start: November 17, 2024 End: November 17, 2024 Erick Brooks TUNG NUT GROWER, TUNG NUT GROWER-C Referring Provider Active Start: November 17, 2024 End: November 17, 2024 Team Status: Inactive Member Role/Relationship Status Dates Dr. Fiordaliza Zhong MD Attending Provider Active Start: December 16, 2024 End: December 16, 2024 Team Status: Inactive Member Role/Relationship Status Dates Erick Lafayette TUNG NUT GROWER, TUNG NUT GROWER-C Attending Provider Active Start: January 12, 2025 End: January 12, 2025 Team Status: Inactive Member Role/Relationship Status Dates Erick Lafayette TUNG NUT GROWER, TUNG NUT GROWER-C Attending Provider Active Start: January 24, 2025 End: January 24, 2025 Team Status: Inactive Member Role/Relationship Status Dates Erick Lafayette TUNG NUT GROWER, TUNG NUT GROWER-C Attending Provider Active Start: January 24, 2025 End: January 24, 2025 Team Status: Active Member Role/Relationship Status Dates Erick Lafayette TUNG NUT GROWER, TUNG NUT GROWER-C Attending Provider Active Start: January 25, 2025 Erick Lafayette TUNG NUT GROWER, TUNG NUT GROWER-C Referring Provider Active Start: January 25, 2025 Dr. Delmar Luna MD Primary Care Provider Acti ve Start: January 25, 2025 Team Status: Inactive Member Role/Relationship Status Dates Erick Brooks TUNG NUT GROWER, TUNG NUT GROWER-C Attending Provider Active Start: January 25, 2025 End: January 25, 2025 Erick Lafayette TUNG NUT GROWER, TUNG NUT GROWER-C Referring Provider Active Start: January 25, 2025 End: January 25, 2025 Dr. Delmar Luna MD Primary Care Provider Acti ve Start: January 25, 2025 End: January 25, 2025 Team Status: Inactive Member Role/Relationship Status Dates Erick Lafayette TUNG NUT GROWER, TUNG NUT GROWER-C Attending Provider Active Start: January 25, 2025 End: January 25, 2025 Erick Lafayette TUNG NUT GROWER, TUNG NUT GROWER-C Referring Provider Active Start: January 25, 2025 [...] 07, 2025 End: February 07, 2025 Dr. Dlemar Luna MD Referring Provider Active Start: February 07, 2025 End: February 07, 2025 Team Status: Inactive Member Role/Relationship Status Dates Erick Brooks TUNG NUT GROWER, TUNG NUT GROWER-C Attending Provider Active Start: November 17, 2024 End: November 17, 2024 Team Status: Inactive Member Role/Relationship Status Dates Erick Brooks TUNG NUT GROWER, TUNG NUT GROWER-C Attending Provider Active Start: November 17, 2024 End: November 17, 2024 Erick Lafayette TUNG NUT GROWER, TUNG NUT GROWER-C Referring Provider Active Start: November 17, 2024 End: November 17, 2024 Team Status: Inactive Member Role/Relationship Status Dates Dr. Fiordaliza Zhong MD Attending Provider Active Start: December 16, 2024 End: December 16, 2024 Team Status: Inactive Member Role/Relationship Status Dates Erick Brooks TUNG NUT GROWER, TUNG NUT GROWER-C Attending Provider Active Start: January 12, 2025 End: January 12, 2025 Team Status: Inactive Member Role/Relationship Status Dates Erick Brooks TUNG NUT GROWER, TUNG NUT GROWER-C Attending Provider Active Start: January 24, 2025 End: January 24, 2025 Team Status: Inactive Member Role/Relationship Status Dates Erick Lafayette TUNG NUT GROWER, TUNG NUT GROWER-C Attending Provider Active Start: January 25, 2025 End: January 25, 2025 Erick Brooks TUNG NUT GROWER, TUNG NUT GROWER-C Referring Provider Active Start: January 25, 2025 [...] Inactive Member Role/Relationship Status Dates Erick Rodriguez TUNG NUT GROWER, TUNG NUT GROWER-C Attending Provider Active Start: January 12, 2025 End: January 12, 2025 Team Status: Inactive Member Role/Relationship Status Dates Erick Rodriguez TUNG NUT GROWER, TUNG NUT GROWER-C Attending Provider Active Start: January 24, 2025 End: January 24, 2025 Team Status: Inactive Member Role/Relationship Status Dates Erick Rodriguez TUNG NUT GROWER, TUNG NUT GROWER-C Attending Provider Active Start: January 24, 2025 End: January 24, 2025 Team Status: Inactive Member Role/Relationship Status Dates Erick Rodriguez TUNG NUT GROWER, TUNG NUT GROWER-C Attending Provider Active Start: January 25, 2025 End: January 25, 2025 Erick Rodriguez TUNG NUT GROWER, TUNG NUT GROWER-C Referring Provider Active Start: January 25, 2025 [...] March 21, 2025 End: March 21, 2025 Team Status: Active Member Role/Relationship Status Dates Dr. Delmar Luna MD Primary Care Provider Acti ve Start: March 21, 2025 Dr. Fiordaliza Zhong MD Attending Provider Active Start: March 21, 2025 Dr. Fiordaliza Zhong MD Referring Provider Active Start: March 21, 2025 Team Status: Inactive Member Role/Relationship Status Dates Dr. Delmar Luna MD Primary Care Provider Acti ve Start: March 24, 2025 End: March 24, 2025 Dr. Fiordaliza Zhong MD Attending Provider Active Start: March 24, 2025 End: March 24, 2025 Dr. Fiordaliza Zhong MD Referring Provider Active Start: March 24, 2025 End: March 24, 2025 Team Status: Active Member Role/Relationship Status Dates Dr. Delmar Luna MD Primary Care Provider Acti ve Start: March 24, 2025 Dr. Fiordaliza Zhong MD Attending Provider Active Start: March 24, 2025 Dr. Fiordaliza Zhong MD Referring Provider Active Start: March 24, 2025 Dr. Fiordaliza Zhong MD Other Provider Active Start: March 24, 2025 Team Status: Active Member Role/Relationship Status Dates Dr. Delmar Luna MD Primary Care Provider Acti ve Start: March 24, 2025 Dr. Delmar Luna MD Referring Provider Active Start: March 24, 2025 Dr. Fiordaliza Zhong MD Attending Provider Active Start: March 24, 2025 Team Status: Inactive Member Role/Relationship Status Dates Dr. Delmar Luna MD Primary Care Provider Acti ve Start: March 24, 2025 End: March 24, 2025 Dr. Delmar Luna MD Referring Provider Active Start: March 24, 2025 End: March 24, 2025 Dr. Fiordaliza Zhong MD Attending Provider Active Start: March 24, 2025 End: March 24, 2025 INFORMATION SOURCE (unrecogn ized section and content) DATE CREATED AUTHOR 03/22/2025 [facility] DATE CREATED AUTHOR AUTHOR'S ORGANIZ ATION 03/26/2025 [facility] FOR RECORDS PERTAINING TO PATIENTS WHO [...] BE BASED ON THE PRIMARY CLINICAL RECORDS. [employer] provides no warranty or guarantee of the accuracy or completeness of information in this document.
--- OUTSIDE RECORDS SUMMARY | 2025-03-28 05:58 | XMS RPT_ITS | CCD ---
Author Organization [facility] CliniSynm Care Team Providers Care Property Condition Assessor Name Role Phone Greg Rich CNM Attending Provider [phone] Greg Rich CNM Referring Provider [phone] Dr. Aye Dey DO Attending Provider Dr. Aye Dey DO Referring Provider [place] BIT GRINDER-C, Erick Attending Provider [phone] [place] BIT GRINDER-C, Erick Referring Provider [phone] Dr. Fiordaliza Zhong MD Attending Provider [phone] Dr. Delmar Luna MD Primary Care Provider Dr. Aye Dey DO Attending Provider Dr. Delmar Luna MD Referring Provider [phone] Dr. Aye Dey DO Attending Provider Greg Rich CNM Attending Provider [phone] Dr. Aye Dey DO Referring Provider Dr. Aye Dey DO Other Provider [phone] Dr. Fiordaliza Zhong MD Referring Provider Dr. Fiordaliza Zhong MD Other Provider [phone] [place] BIT GRINDER-C, Erick Attending Provider [place] BIT GRINDER-C, Erick Referring Provider REFERRED, SELF Referring Unavailable AYE RUVALCABA Attending Unavailable DELMAR LUNA Primary Care Unavailabl e DELMAR LUNA Primary Care Unavailabl FIORDALIZA Christie Referring Unavailabl e LUCY ALVES Attending Unavailable [facility] Primary Care Unavailabl e FRANKY BADILLO Attending Unavailable REFERRED, SELF Referring Unavailable AYE RUVALCABA Attending Unavailable [facility] Primary Care Unavailabl e REFERRED, SELF Referring Unavailable GREG RICH Referring Unavailable [facility] Primary Care Unavailabl e FRANKY BADILLO Attending Unavailable GREG RICH Referring Unavailable FRANKY BADILLO Attending Unavailable [facility] Primary Care UnavailCOSTA Marino Attending Unavailable [facility], Primary Care Unavailable ERICK RODRIGUEZ Referring Unavailable GREG IRCH Referring Unavailable COSTA CERRATO Attending Unavailable NO PRIMARY [facility]ARE, Primary Care Unavailable Aye Dey Attending Unavailabl e [facility] Referring Unavailable [facility] Unavailable Fiordaliza Zhong Attending Unavailable Aye Dey Attending Unavailabl e [facility] Unavailable [facility] Referring Unavailable Fiordaliza Zhong Attending Unavailable Fiordaliza Zhong Consulting Unavailable Fiordaliza Zhong Referring Unavailable [facility] Unavailable [facility] Unavailable Fiordaliza Zhong Attending Unavailable Fiordaliza Zhong Referring Unavailable Aye Dey Attending Unavailabl e Vande VeldeAye Referring Unavailabl e [facility] Unavailable [facility] Unavailable Fiordaliza Zhong Attending Unavailable Fiordaliza Zhong Referring Unavailable Aye Dey Referring Unavailabl e Vande VeldeAye Attending Unavailabl e [facility] Unavailable Greg Rich Attending Unavailable [facility] Referring Unavailable Fiordaliza Zhong Attending Unavailable [facility] Unavailable Fiordaliza Zhong Consulting Unavailable Fiordaliza Zhong Referring Unavailable Vande Aye Mcdowell Attending Unavailabl e Vande VeldeAey Consulting Unavailabl e Vande Velde, Aye Referring Unavailabl e [facility] Primary Care Unavailable [facility] Referring Unavailable [facility] Unavailable Fiordaliza Zhong Attending [facility] Referring Unavailable Fiordaliza Zhong Attending Unavailable [facility] Primary Care Unavailable [place] BIT GRINDER, Erick Attending Unavailable Fiordaliza Zhong Attending Unavailable [place] BIT GRINDER, Erick Attending Unavailable [facility] Primary Care Unavailable [place] BIT GRINDER, Erick Attending Unavailable [place] BIT GRINDER, Erick Referring Unavailable [place] BIT GRINDER, Erick Referring Unavailable [place] BIT GRINDER, Erick Attending Unavailable [place] BIT GRINDER, Erick Attending Unavailable Greg Rich Referring Unavailable Greg Rich Attending Unavailable Fiordaliza Zhong Attending Unavailable [facility] Primary Care Unavailable Fiordaliza Zhong Referring Unavailable [facility] Primary [facility] Unavailable Fiordaliza Zhong Admitting Unavailable Fiordaliza Zhong Attending Unavailable [place] BIT GRINDER, Erick Attending [facility]available [facility] Referring Unavailable Aye Dey Attending Unavailabl e [facility] Primary [facility] Unavailable Greg Rich Attending Unavailable Medications Current [...] January 12, 2025 12:00am Flash Glucose Scanning [place] (Freestyle Hardeep 2 Emmon[place]) misc (6 sources) Start: 03-07-2025 Flash Glucose Scanning [place] (Freestyle Hardeep 2 [place]) [facility] [place] Active 0 .ROUTE .MEDSUPPLY 1 0 March 07, 2025 12:00am As directed Multivit 19-Yglq-Zbhlsq 1-Dha (Pnv-Dha) 27 mg iron-1 mg -300 mg capsule (18 sources) Start: 08-29-2020 Multivit 99-Zaem-Epefst 1-Dha (Pnv-Dha) 27 mg iron-1 mg -300 mg capsule Active 1 NMA PO DAILY August 29, 2020 1:00am Start: 08-29-2020 Multivit 47-Ir on-Folate 1-Dha (Pnv-Dha) 27 mg iron-1 mg -300 mg capsule Active 1 NMA PO DAILY August 29, 2020 1:00am Start: 08-29-2020 take 1 capsule by mo mth once daily Multivit 60-Cikt-Hqohlk 1-Dha (Pnv-Dha) 27 mg iron-1 mg -300 [...] unspecified trimester] 09-24-2024 Chronic Comment on above: [id number]-9.6 nl 1 tm hga1c. recom mend weekly [...] Froilan PRR, , MEET 04/17, boy PC Timbo, Froilan PRR, , MEET 04/17, boy Agustín PC Timbo, Froilan Other complications of (20 sources) Advanced [...] Triage Progress Noteon OB Triage Progress Note [facility] Medical Records Department [address] [place] [address] OB Triage Progress Note 03/24/25 1004 MR#: [id number] Acct: [id number] Name: DEMETRIUS FERNANDES Rep #: [id number] : 1990 34 From: Fiordaliza Zhong MD PCP: Dr. Delmar Luna MD Status:REG CLI Y DOS: [id number] Progress Notes Date of Service: 03/24/25 Progress Note: Patient presents for triage evaluation secondary to polyhydramnios FHT: 135 Moderate variability reactive no decelerations category I tracing [place]: no regular Contractions Assessment and plan: 36 weeks severe polyhydramnios Reactive NST, reassuring maternal and status patient discharged to home to follow-up as scheduled. See problem list details for additional plan information. Charges/Coding Procedures Urinary/Genital 52xxx-59xxx: 15850-07 non-stress test Interp 03/24/25 1005 Date Fiordaliza Zhong MD Cosigner Signature (if applicable): Date CC: Dr. Delmar Luna MD; Dr. Fiordaliza Zhong MD Signed Normal [facility] Office Visit Reporton 03-24-2025 [facility] Office Visit Report [facility] [address], [address] [place] [address] OFFICE VISIT Date of Service: 03/24/25 MR#: [id number] Acct: [id number] Name: DEMETRIUS FERNANDES Rep #: [id number] : 1990 Provider: Dr. Fiordaliza leong MD Age/Sex: 34/F [place] [facility] [place]: Signed Intake Vital Signs 03/24/25 09:10 03/24/25 10:26 Height 5 ft 9 in 5 ft 9 in Weight: 345 lb 9 oz BMI 51.0 BP 132/76 H Intake Visit Reasons: 37wk ob before csection *per Furrier Designer Required: No Is patient in pain?: No [...] ea 03/07/25 03/24/25 Rx (FreeStyle Hardeep 2 Emmonak) lancets #200 ea 03/07/25 03/24/25 Rx Last [...] occupational status: employed and unemployed current occupation: [employer] current occupational exposures/hazards: No pets [...] 1-2 times per week duration: 30-45 minutes/day parul/uatsdin: None seatbelt use: always do you feel safe at home: Yes 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 Date Name GA/Weeks Outcome Route Bth Weight Infant Gen Labor Lgth Anesthesia Del [facility] Provider FOB 04/14/21 Timmy 41 live - full term 8#2oz Male epidural [facility] GP Froilan Delivery Date: 04/14/21 Last [...] Visit Note (more content not included)... Normal [facility] Rule out Beta Strep (Grp. B) on 03-23-2025 PRICE Group B Beta Streptococcus is not isolated. Normal [facility] Comment on above: Performed By: #### M 100.8605 ####[facility] [id number] [place], [address] [facility] Office Visit Reporton 03-21-2025 Mar[facility] Office Visit Report [facility] [address], [address] [place] [address] OFFICE VISIT Date of Service: 03/21/25 MR#: [id number] Acct: [id number] Name: DEMETRIUS FERNANDES Rep #: [id number] : 1990 Provider: Dr. Fiordaliza leong MD Age/Sex: 34/F [place] [facility] [place]: Signed Intake Vital Signs 01/24/25 08:40 03/09/25 10:29 03/15/25 10:40 03/21/25 10:29 Height 5 ft 9 in 5 ft 9 in 5 ft 9 in 5 ft 9 in Weight: 342 lb 6 oz BMI 50.5 BP 127/72 H Intake Visit Reasons: 36 wk ob Furrier Designer Required: No Is patient in pain?: No [...] ea 03/07/25 03/21/25 Rx (FreeStyle Hardeep 2 [place]monak) lancets #200 ea 03/07/25 03/21/25 Rx Last [...] occupational status: employed and unemployed current occupation: [employer] current occupational exposures/hazards: No pets [...] 1-2 times per week duration: 30-45 minutes/day aprul/uatsdin: None seatbelt use: always do you feel safe at home: Yes 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 Date Name GA/Weeks Outcome Route Bth Weight Gen Labor Lgth Anesthesia Del Locatn Provider FOB 04/14/21 Timbo 41 live - full term 8#2oz Male epidural [facility] GP Froilan Delivery Date: 04/14/21 Last [...] Visit Note (more content not included)... Normal [facility] Progress Noteon 03-21-2025 Employee Benefits Attorney Authentication Interface Message Text [place] Polyhydramnios- concern [...] of 03/21/2025. [2] No Known Allergies Normal [facility] Screening beta-hemolytic Str eptococcus cultureOrdered By: Fiordaliza Zhong on 03-21-2025 Beta-hemolytic Streptococcus culture Group B Beta Streptococcus is not isolated. [facility] Progress Noteon 03-16-2025 Employee Benefits Attorney Authentication Interface Message Text [place] Polyhydramnios- concern [...] of 03/16/2025. [2] No Known Allergies Normal [facility] OB Triage Progress Noteon OB Triage Progress Note [facility] Medical Records Department [address] [place] [address] OB Triage Progress Note 03/15/25 1110 MR#: [id number] Acct: [id number] Name: DEMETRIUS FERNANDES Rep #: [id number] : 1990 34 From: Fiordaliza Zhong MD PCP: Dr. Delmar Luna MD Status:REG CLI Y DOS: Location: [place] [address] Progress Notes Date of Service: 03/15/25 Progress Note: Patient presents for triage evaluation secondary to polyhydramnios FHT: 130-135 Moderate variability reactive no decelerations category I tracing [place]: no regular Contractions Assessment and plan: polyhydramnios 35 weeks Reactive NST, reassuring maternal and status patient discharged to home to follow-up as cindy. See problem list details for additional plan information. Charges/Coding Procedures Urinary/Genital 52xxx-59xxx: 26500-71 non-stress test Interp Assessment Plan (1) Polyhydramnios affecting : COMMENT: MIKE 36 at 34 weeks per MFM. QID glucose testing. twice weekly ANFS-BPP and NST. Consult with [facility] ordered. deliver at 37 weeks (2) Macrosomia affecting management of mother, antepartum: COMMENT: EFW 3205 at 34 weeks per [facility], QID glucose testing (3) Supervision of high-risk : QUALIFIERS: Trimester: second trimester Qualified Code(s): O09.92 - Supervision of high risk , unspecified, second trimester COMMENT: PRR, , MEET 04/17/25, boy RAEGAN Warner, Froilan (4) Breech presentation: COMMENT: at 34 weeks per [facility] (5) : QUALIFIERS: Weeks of gestation: 34 weeks Qualified Code(s): Z3A.34 - 34 weeks gestation of COMMENT: elects NIPT with gender, insufficient DNA X 2; AFP Neg. Nml anatomy. 03/15/25 1112 Date Fiordaliza Zhong MD Cosigner Signature (if applicable): Date CC: Dr. Delmar Luna MD; Dr. Fiordaliza Zhong MD Signed Normal [facility] Progress Noteon 03-11-2025 Employee Benefits Attorney Authentication Interface Message Text [facility] Ultrasound Consult Note Today we discussed [...] 04/14/21 41w0d 3.685 kg M Vag-Spont Comments: [facility] NIPT not able to be calculated [...] decrease in amniotic fluid. All questions answered. [facility] CS#46 recommendations. 1. Serial growth ultrasounds every [...] -30 minutes chart review and documentation Normal [facility] - Chemistry and C hemistry - challengeOrdered By: Aye Mcdowell on 03-09-2025 Glucose Ql (U) Negative [facility] - UrinalysisOrder ed By: Aye Mcdowell on 03-09-2025 Protein Ql (U) Negative [facility] OB Triage Physician Noteon 0 03-09-2025 OB Triage Physician Note [facility] Medical Records Department [address] [place] [address] OB Triage Physician Note 03/09/252037 MR#: [id number] Acct: [id number] Name: DEMETRIUS FERNANDES Rep #: [id number] : 1990 34 From: Aye Dey DO PCP: Dr. Delmar Luna MD [facility] - [facility] HPI Narrative DEMETRIUS FERNANDES, is a 34 F who presents to [facility] for an NST at 34 weeks due [...] ea 03/07/25 Unknown Rx (FreeStyle Hardeep 2 Emmonak) lancets #200 ea 03/07/25 Unknown Rx Allergy/AdvReac [...] occupational status: employed and unemployed current occupation: [employer] current occupational exposures/hazards: No pets [...] 1-2 times per week duration: 30-45 minutes/day parul/uatsdin: None seatbelt use: always do you feel safe at home: Yes 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 Date Name GA/Weeks Outcome Route Bth Weight Infant Gen Labor Lgth Anesthesia Del Locatn Provider FOB 04/14/21 Timbo 41 live - full term 8#2oz Male epidural [facility] GP Froilan Delivery Date: 04/14/21 Last [...] -???-???-???-???-???-? ??- (more content not included)... Normal [facility] Office Visit Reporton 03-09-2025 Marble Finisher Office Visit Report [facility] [address], [address] [place] [address] OFFICE VISIT Date of Service: 03/09/25 MR#: [id number] Acct: [id number] Name: DEMETRIUS FERNANDES Rep #: [id number] : 1990 Provider: Dr. Aye Morel DO Age/Sex: 34/F [place] [facility] [place] Status: Signed Intake Vital Signs 01/12/25 09:43 02/22/25 10:03 03/09/25 08:54 03/09/25 08:55 Height 5 ft 9 in 5 ft 9 in 5 ft 9 in 5 ft 9 in Weight: 339 lb 6 oz BMI 50.1 BP 136/85 H Intake Visit Reasons: 34 wk ob Furrier Designer Required: No Is patient in pain?: No [...] ea 03/07/25 03/09/25 Rx (FreeStyle Hardeep 2 [place]) lancets #200 ea 03/07/25 03/09/25 Rx Last [...] occupational status: employed and unemployed current occupation: [employer] current occupational exposures/hazards: No pets [...] 1-2 times per week duration: 30-45 minutes/day parul/uatsdin: None seatbelt use: always do you feel safe at home: Yes 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 Date Name GA/Weeks Outcome Route Bth Weight Infant Gen Labor Lgth Anesthesia Del Locatn Provider FOB 04/14/21 Timmy 41 live - full term 8#2oz Male epidural [facility] GP Froilan Delivery Date: 04/14/21 Last [...] -???- Gluc (more content not included)... Normal [facility] - Chemistry and C hemistry - challengeOrdered By: Greg Rich on 02-22-2025 Glucose Ql (U) Negative [facility] - UrinalysisOrder ed By: Greg Rich on 02-22-2025 Protein Ql (U) Negative [facility] Mar[facility] Office Visit Reporton 02-22-2025 Marble Finisher Office Visit Report [facility] [address], [address] [place] [address] OFFICE VISIT Date of Service: 02/22/25 MR#: [id number] Acct: [id number] Name: DEMETRIUS FERNANDES Rep #: [id number] : 1990 Provider: ZACHARY Way ams Age/Sex: 34/F [place] [facility] [place]: Signed Intake Vital Signs 01/12/25 09:43 02/07/25 09:25 02/22/25 10:03 Height 5 ft 9 in 5 ft 9 in 5 ft 9 in Weight: 338 lb 1 oz BMI 49.9 BP 132/76 H Intake Visit Reasons: 32 wk ob Chief Complaint: 32 wk OB Furrier Designer Required: No Is patient in pain?: No [...] occupational status: employed and unemployed current occupation: [employer] current occupational exposures/hazards: No pets [...] 1-2 times per week duration: 30-45 minutes/day parul/uatsdin: None seatbelt use: always do you feel safe at home: Yes 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 Date Name GA/Weeks Outcome Route Bth Weight Gen Labor Lgth Anesthesia Del [place] Provider FOB 04/14/21 Timbo 41 live - full term 8#2oz Male epidural [facility] GP Froilan Delivery Date: 04/14/21 Last [...] cons with (more content not included)... Normal [facility] - Chemistry and C hemistry - challengeOrdered By: Aye Mcdowell on 02-07-2025 Glucose Ql (U) Negative [facility] - UrinalysisOrder ed By: Aye Mcdowell on 02-07-2025 Protein Ql (U) Negative [facility] Mar[facility]isher Office Visit Reporton 02-07-2025 Marble Finisher Office Visit Report [facility] [address], [address] [place] [address] OFFICE VISIT Date of Service: 02/07/25 MR#: [id number] Acct: [id number] Name: DEMETRIUS FERNANDES Rep #: [id number] : 1990 Provider: Dr. Aye Morel DO Age/Sex: 34/F [place] [facility] [place]: Signed Intake Vital Signs 12/16/24 09:30 01/24/25 08:40 02/07/25 09:25 02/07/25 09:25 Height 5 ft 9 in 5 ft 9 in 5 ft 9 in 5 ft 9 in Weight: 332 lb BMI 49.0 BP 107/71 Intake Visit Reasons: 30wk ob Furrier Designer Required: No Is patient in pain?: No [...] occupational status: employed and unemployed current occupation: [employer] current occupational exposures/hazards: No pets [...] 1-2 times per week duration: 30-45 minutes/day parul/uatsdin: None seatbelt use: always do you feel safe at home: Yes 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 Date Name GA/Weeks Outcome Route Bth Weight Gen Labor Lgth Anesthesia Del Locatn Provider FOB 04/14/21 Timbo 41 live - full term 8#2oz Male epidural [facility] GP Froilan Delivery Date: 04/14/21 Last [...] -???- K (more content not included)... Normal [facility] Gestational GTT 3HR 100gon 0 01-25-2025 GEST GTT 100gm Normal [facility] Comment on above: Order Comment: Y Result Comment: FAST ING 91 Col: 01/25/25 0649 GLUCOSE TOLERANCE TEST FOR Reference Interval GESTATIONAL DIABETES Fasting <105 mg/dL 1 hour <190 mg/dl 2 hour <165 mg/dl 3 hour <145 mg/dl 1 HR GLU 151 Col: 01/25/25 0829 2 HR GLU 126 Col: 01/25/25 0926 3 HR GLU 117 Col: 01/25/25 1025 Performed By: #### L 500.4710 ####[facility] [address] [place], [place], [address] Quantitative serum or plasma 3 hour gestational glucose tolerance panelOrdered By: Erick Rodriguez on 01-25-2025 Glucose tolerance 3 hours gestational panel See comment [facility] Comment on above: FASTING 91 Col: 01/11 [...] Auto (Unsp spec) [#/Vol] 2.28 10*3/uL 0.83-4.51 [facility] Absolute neutrophil countOrd ered By: Erick Rodriguez on 01-24-2025 Neutrophils (Bld) [#/Vol] 10.3 10*3/uL High 2.0-7.7 [facility] Automated lymphocyte count a s percentage of total leukocytesOrdered By: Erick Rodriguez on 01-24-2025 Lymphocytes/100 WBC Auto (Unsp spec) 16.6 % Low 19-41 [facility] Basophil percentageOrdered B y: Erick Rodriguez on 01-24-2025 Basophils/100 WBC (Bld) 0.3 % 0-1 [facility] CBC W/Diff, Automatedon 01-11 Absolute Lymph 2.28 X10 3/uL Normal 0.83-4.51 [facility] Comment on above: Performed By: #### L 501.0250, L509.8002, L3890.6006, BTS, L100.0100 ####[facility] [address] [place], [address] Absolute Neut 10.3 X10 3/uL High 2.0-7.7 [facility] Comment on above: Performed By: #### L 501.0250, L509.8002, L3890.6006, BTS, L100.0100 ####[facility] [address] [place], [address] Basophils/100 WBC (Bld) 0.3 % Normal 0-1 [facility] Comment on above: Performed By: #### L 501.0250, L509.8002, L3890.6006, BTS, L100.0100 ####[facility] [address] [place], [address] Eosinophils/100 WBC (Bld) 0.9 % Normal 0-5 [facility] Comment on above: Performed By: #### L 501.0250, L509.8002, L3890.6006, BTS, L100.0100 ####[facility] [address] [place], [address] Erythrocyte distribution width (RBC) [Ratio] 15.7 % High 11.6-14.6 [facility] Comment on above: Performed By: #### L 501.0250, L509.8002, L3890.6006, BTS, L100.0100 ####[facility] [address] [place], [address] Hematocrit (Bld) [Volume fraction] 33.4 % Low 37-47 [facility] Comment on above: Performed By: #### L 501.0250, L509.8002, L3890.6006, BTS, L100.0100 ####[facility] [address] [place], [address] Hemoglobin (Bld) [Mass/Vol] 10.6 g/dL Low 12.0-15.0 [facility] Comment on above: Performed By: #### L 501.0250, L509.8002, L3890.6006, BTS, L100.0100 ####[facility] [address] [place], [address] IG% 0.700 Normal 0.0-0.9 [facility] Comment on above: Result Comment: IG% - Immature Granulocytes (promyelocytes, myelocytes and metamyelocytes) > 1% indicates that a LEFT SHIFT is Present. Performed By: #### L 501.0250, L509.8002, L3890.6006, BTS, L100.0100 ####[facility] [address] [place], [address] Lymphocytes/100 WBC (Bld) 16.6 % Low 19-41 [facility] Comment on above: Performed By: #### L 501.0250, L509.8002, L3890.6006, BTS, L100.0100 ####[facility] [address] [place], [address] MCH (RBC) [Entitic mass] 27.1 pg Normal 27.0-32.0 [facility] Comment on above: Performed By: #### L 501.0250, L509.8002, L3890.6006, BTS, L100.0100 ####[facility] [address] [place], [address] MCHC (RBC) [Mass/Vol] 31.7 g/dL Low 32-36 [facility] Comment on above: Performed By: #### L 501.0250, L509.8002, L3890.6006, BTS, L100.0100 ####[facility] [address] [place], [address] MCV (RBC) [Entitic vol] 85.4 fL Normal 81-99 [facility] Comment on above: Performed By: #### L 501.0250, L509.8002, L3890.6006, BTS, L100.0100 ####[facility] [address] [place], [address] Monocytes/100 WBC (Bld) 6.5 % Normal 0-10 [facility] Comment on above: Performed By: #### L 501.0250, L509.8002, L3890.6006, BTS, L100.0100 ####[facility] [address] [place], [address] Neutrophils/100 WBC (Bld) 75.0 % High 47-70 [facility] Comment on above: Performed By: #### L 501.0250, L509.8002, L3890.6006, BTS, L100.0100 ####[facility] [address] [place], [address] Nucleated RBC (Bld) [#/Vol] 0 10*3/uL Normal 0-5 [facility] Comment on above: Performed By: #### L 501.0250, L509.8002, L3890.6006, BTS, L100.0100 ####[facility] [address] [place], [address] Platelet mean volume (Bld) [Entitic vol] 10.7 fL Normal 6.2-12.0 [facility] Comment on above: Performed By: #### L 501.0250, L509.8002, L3890.6006, BTS, L100.0100 ####[facility] [address] [place], [address] Platelets (Bld) [#/Vol] 262 10*3/uL Normal 150-450 [facility] Comment on above: Performed By: #### L 501.0250, L509.8002, L3890.6006, BTS, L100.0100 ####[facility] [address] [place], [address] RBC (Bld) [#/Vol] 3.91 10*6/uL Low 4.2-5.4 [facility] Comment on above: Performed By: #### L 501.0250, L509.8002, L3890.6006, BTS, L100.0100 ####[facility] [address] [place], [address] RDW SD 48.2 fl High 35.1-43.9 [facility] Comment on above: Performed By: #### L 501.0250, L509.8002, L3890.6006, BTS, L100.0100 ####[facility] [address] [place], [address] WBC (Bld) [#/Vol] 13.8 10*3/uL High 4.4-11.0 [facility] Comment on above: Performed By: #### L 501.0250, L509.8002, L3890.6006, BTS, L100.0100 ####[facility] [address] [place], [address] Eosinophil percentageOrdered By: Erick Rodriguez on 01-24-2025 Eosinophils/100 WBC (Bld) 0.9 % 0-5 [facility] Erythrocyte distribution wid th ratioOrdered By: Erick Rodriguez on 01-24-2025 Erythrocyte distribution width (RBC) [Ratio] 15.7 % High 11.6-14.6 [facility] Erythrocyte distribution wid th standard deviationOrdered By: Erickpatti Rodriguez on 01-24-2025 Erythrocyte distribution width (RBC) [Ratio] 48.2 fl High 35.1-43.9 [facility] Glucose Challenge Gest 1H 50 ender 01-24-2025 GLU GEST 50g 1H 150 mg/dL High 70-140 [facility] Comment on above: Performed By: #### L 501.0250, L509.8002, L3890.6006, BTS, L100.0100 ####[facility] [address] [place], [place], [address] Glucose measurement at 2 lauro rs post-dose gestational glucose tolerance testOrdered By: Erick Rodriguez on 01-24-2025 Glucose [Mass/Vol] 150 mg/dL High 70-140 [facility] HIVon 01-24-2025 HIV Non-Reactive Normal Nonreactive [facility] Comment on above: Result Comment: Non- Reactive Reactive Repeatedly reactive samples must be confirmed according to CDC recommended confirmatory algorithms. The subresults for either HIVAG or AHIV can be used as an aid in the selection of the confirmation algorithm for reactive samples. Send out specimens with Reactive results to [facility] for confirmation. Order the HIV antibody detection and differentiation: #[id number] Performed By: #### L 501.0250, L509.8002, L3890.6006, BTS, L100.0100 ####[facility] [address] [place], [place], [id number] Hematocrit Auto (Bld) [Volum e fraction]Ordered By: Erick Rodriguez on 01-24-2025 Hematocrit (Bld) [Volume fraction] 33.4 % Low 37-47 [facility] Hemoglobin measurementOrdere d By: Erick Rodriguez on 01-24-2025 Hemoglobin (Bld) [Mass/Vol] 10.6 g/dL Low 12.0-15.0 [facility] Immature granulocytes/100 WB C Auto (Bld)Ordered By: Erick Rodriguez on 01-24-2025 Immature granulocytes/100 WBC (Bld) 0.700 % 0.0-0.9 [facility] Comment on above: IG% - Immature Granu locytes (promyelocytes, myelocytes and metamyelocytes) > 1% indicates that a LEFT SHIFT is Present. Laboratory - Chemistry and C hemistry - challengeOrdered By: Erick Rodriguez on 01-24-2025 Glucose Ql (U) Negative [facility] Laboratory - UrinalysisOrder ed By: Erick Rodriguez on 01-24-2025 Protein Ql (U) Negative [facility] MCV (mean corpuscular volume ) determinationOrdered By: Erick Rodriguez on 01-24-2025 MCV (RBC) [Entitic vol] 85.4 fL 81-99 [facility] Mean corpuscular hemoglobin (MCH) determinationOrdered By: Erick Rodriguez on 01-24-2025 MCH (RBC) [Entitic mass] 27.1 pg 27.0-32.0 [facility] Mean corpuscular hemoglobin concentration (MCHC) determinationOrdered By: Erick Rodriguez on 01-24-2025 MCHC (RBC) [Mass/Vol] 31.7 g/dL Low 32-36 [facility] Mean platelet volume determi nationOrdered By: Erick Rodriguez on 01-24-2025 Platelet mean volume (Bld) [Entitic vol] 10.7 fL 6.2-12.0 [facility] Monocyte percentageOrdered B y: Erick Rodriguez on 01-24-2025 Monocytes/100 WBC (Bld) 6.5 % 0-10 [facility] Neutrophil percentageOrdered By: Erick Rodriguez on 01-24-2025 Neutrophils/100 WBC (Bld) 75.0 % High 47-70 [facility] No Panel InformationOrdered By: Erick Rodriguez on 01-24-2025 HIV (1&2) Antibody Non-Reactive Nonreactive [facility] Comment on above: Non-ReactiveReactive Repeatedly reactive samples must be confirmed according to CDC recommended confirmatory algorithms. The subresults for either HIVAG or AHIV can be used as an aid in the selection of the confirmation algorithm for reactive samples.Send out specimens with Reactive results to [facility] for confirmation.Order the HIV antibody detection and differentiation: #[id number] Nucleated red blood cell per centageOrdered By: Erick Rodriguez on 01-24-2025 Nucleated RBC/100 WBC (Bld) [Ratio] 0 % 0-5 [facility] Visit Reporton 01-24-2025 [facility] Visit Report [facility] [address], [address] [place] [address] OFFICE VISIT Date of Service: 01/24/25 MR#: [id number] Acct: [id number] Name: DEMETRIUS FERNANDES Rep #: [id number] : 1990 Provider: MARY JANE godoy Age/Sex: 34/F [place] [facility] [place]: Signed Intake Vital Signs 12/16/24 09:30 01/12/25 09:43 01/24/25 08:30 01/24/25 08:40 Height 5 ft 9 in 5 ft 9 in 5 ft 9 in 5 ft 9 in Weight: 331 lb 2 oz BMI 48.9 BP 124/72 H Intake Visit Reasons: 28wk ob/glucose/rhogam Chief Complaint: 28 Week OB/Rhogam Furrier Designer Required: No Is patient in pain?: No [...] occupational status: employed and unemployed current occupation: [employer] current occupational exposures/hazards: No pets [...] 1-2 times per week duration: 30-45 minutes/day parul/uatsdin: None seatbelt use: always do you feel safe at home: Yes 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 Date Name GA/Weeks Outcome Route Bth Weight Infant Gen Labor Lgth Anesthesia Del Locatn Provider FOB 04/14/21 Timbo 41 live - full term 8#2oz Male epidural [facility] GP Froilan Delivery Date: 04/14/21 Last [...] dates. ac (more content not included)... Normal [facility] Platelet countOrdered By: Lalo Rodriguez on 01-24-2025 Platelets (Bld) [#/Vol] 262 10*3/uL 150-450 [facility] RBC Auto (Bld) [#/Vol]Ordere d By: Erick Rodriguez on 01-24-2025 RBC (Bld) [#/Vol] 3.91 10*6/uL Low 4.2-5.4 [facility] Syphilis Antibodieson 2024 Syphilis Abs Non-Reactive Normal Nonreactive [facility] Comment on above: Performed By: #### L 501.0250, L509.8002, L3890.6006, BTS, L100.0100 ####[facility] [address] [place], [place], [address] Type AND Screenon 01-24-2025 ABO and Rh group Nom (Bld) Blood group O Rh(D) negative Normal [facility] Comment on above: Order Comment: PN Performed By: #### L 501.0250, L509.8002, L3890.6006, BTS, L100.0100 ####[facility] [address] [place], [place], [address] White blood cell (WBC) count Ordered By: Erick Rodriguez on 01-24-2025 WBC (Bld) [#/Vol] 13.8 10*3/uL High 4.4-11.0 [facility] Laboratory - Chemistry and C hemistry - challengeOrdered By: Erick Rodriguez on 01-12-2025 Glucose Ql (U) Negative [facility] - UrinalysisOrder ed By: Erick Rodriguez on 01-12-2025 Protein Ql (U) Negative [facility] Visit Reporton 01-12-2025 [facility] Office Visit Report [address], [address] [place] [address] OFFICE VISIT Date of Service: 01/12/25 MR#: [id number] Acct: [id number] Name: DEMETRIUS FERNANDES Alicia Rep #: [id number] : 1990 Provider: MARY JANE godoy Age/Sex: 34/F [place] [facility] [place]: Signed Intake Vital Signs 11/17/24 08:40 12/16/24 09:30 01/12/25 09:43 Height 5 ft 9 in 5 ft 9 in 5 ft 9 in Weight: 328 lb 8 oz BMI 48.4 BP 130/82 H Intake Visit Reasons: 26 wk ob Chief Complaint: 26 Week OB Furrier Designer Required: No Is patient in pain?: No [...] occupational status: employed and unemployed 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 Normal [facility] Laboratory - Chemistry and C hemistry - challengeOrdered By: Fiordaliza Zhong on 12-16-2024 Glucose Ql (U) Negative [facility] - UrinalysisOrder ed By: Fiordaliza Zhong on 12-16-2024 Protein Ql (U) Negative [facility] Visit Reporton 12-16-2024 [facility] Office Visit Report [facility] [address] [place] [address], [address] [place] [address] OFFICE VISIT Date of Service: 12/16/24 MR#: [id number] Acct: [id number] Name: DEMETRIUS FERNANDES Rep #: [id number] : 1990 Provider: Dr. 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 (more content not included)... Normal [facility] L3410.9992on 11-23-2024 [facility] Misc. COMMENT Normal . [facility] Comment on above: Order Comment: Speci men Comment: SEE END OF THIS REPORT FOR CORRECTED REPORT COMMENTS [id number] msAFP SERUM RT Result Comment: Test Ordered: [id number] AFP, Serum, Open Spina Bifida Results Comment TG Reference Range: . The MOM and risk factors of this report have been modified based on new information supplied to us by the client or their designated financial foundations representative. The Weight was changed from Not [...] Customer Services to discuss available options. The [place] [employer] recommends amniocentesis [...] TG Reference Range: . Candice Simmons, Ph.D., [facility] Director References: Available Upon Request. Multiples Of Median Cutoffs For AFP Elevations Worrell 2.5 Black 2.8 IDD 2.0 Twins 4.5 Abbreviation Definitions IDD - Insulin Dep Diabetes OSBR - Open Spina Bifida Risk For further inquiries contact [facility] at [phone]. This test was developed and its performance characteristics determined by [employer]. It has not been cleared or approved by the Food and Drug Administration. Performed at: [facility] [address] [place], [place] [id number] Side Laster: Cara Lanza [facility], Phone: [phone] Performed at: [address] [id number] Side Laster: Jake Ferreira PhD, Phone: [phone] AMENDED REPORT 11/23/24 160[address] [facility]. previously reported as: COMMENT Test Ordered: [id number] AFP, Serum, Open Spina Bifida Results Report [...] TG Reference Range: . Candice Simmons, Ph.D., [facility] Director References: Available Upon Request. Multiples Of Median Cutoffs For AFP Elevations Worrell 2.5 Black 2.8 IDD 2.0 Twins 4.5 Abbreviation Definitions IDD - Insulin Dep Diabetes OSBR - Open Spina Bifida Risk For further inquiries contact [email or web address] at [phone]. This test was developed and its performance characteristics determined by [employer]. It has not been cleared or approved by the Food and Drug Administration. Performed at: - [facility] [address] [facility], [place], [place] [id number] Side Laster: Cara Lanza [facility], Phone: [phone] Performed at (more content not included)... Performed By: #### L 3410.9992 #### [facility] [address] [place], [place], [address] Laboratory - Chemistry and C hemistry - challengeOrdered By: Erick Rodriguez on 11-17-2024 Glucose Ql (U) Negative [facility] - UrinalysisOrder ed By: Erick Rodriguez on 11-17-2024 Protein Ql (U) Negative [facility] Visit Reporton 11-17-2024 [facility] Office Visit Report [facility] [address], [address] [place] [address] OFFICE VISIT Date of Service: 11/17/24 MR#: [id number] Acct: [id number] Name: DEMETRIUS FERNANDES Rep #: [id number] : 1990 Provider: MARY JANE godoy Age/Sex: 34/F [place] [facility] [place]: Signed Intake Vital Signs 09/23/24 09:08 10/22/24 10:18 11/17/24 08:40 Height 5 ft 9 in 5 ft 9 in 5 ft 9 in Weight: 317 lb 8 oz BMI 46.8 BP 126/80 H Intake Visit Reasons: 18wk ob Chief Complaint: 18 Week OB Furrier Designer Required: No Is patient in pain?: No [...] occupational status: employed and unemployed current occupation: [employer] current occupational exposures/hazards: No pets [...] 1-2 times per week duration: 30-45 minutes/day parul/uatsdin: None seatbelt use: always do you feel safe at home: Yes 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 Date Name GA/Weeks Outcome Route Bth Weight Infant Gen Labor Lgth Anesthesia Del Locatn Provider FOB 04/14/21 Timbo 41 live - full term 8#2oz Male epidural [facility] GP Froilan Delivery Date: 04/14/21 Last [...] NIPT-very concerned (more content not included)... Normal [facility] - Chemistry and C hemistry - challengeOrdered By: Aye Mcdowell on 10-22-2024 Glucose Ql (U) Negative [facility] - UrinalysisOrder ed By: Aye Mcdowell on 10-22-2024 Protein Ql (U) Negative [facility] Visit Reporton 10-22-2024 [facility] Office Visit Report [facility] [address], [address] [place] [address] OFFICE VISIT Date of Service: 10/22/24 MR#: [id number] Acct: [id number] Name: DEMETRIUS FERNANDES Rep #: [id number] : 1990 Provider: Dr. Aye Morel DO Age/Sex: 34/F [place] [facility] [place]: Signed Intake Vital Signs 04/13/21 20:08 09/23/24 09:08 10/22/24 10:18 10/22/24 10:18 Height 5 ft 9 in 5 ft 9 in 5 ft 9 in 5 ft 9 in Weight: 312 lb 2 oz BMI 46.0 BP 119/76 Intake Visit Reasons: 14wk OB Furrier Designer Required: No Is patient in pain?: No [...] occupational status: employed and unemployed current occupation: [employer] current occupational exposures/hazards: No pets and [...] 1-2 times per week duration: 30-45 minutes/day parul/uatsdin: None seatbelt use: always do you feel safe at home: Yes 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 Date Name GA/Weeks Outcome Route Bth Weight Infant Gen Labor Lgth Anesthesia Del [facility] Provider FOB 04/14/21 Timbo 41 live - full term 8#2oz Male epidural [facility] GP Froilan Delivery Date: 04/14/21 Last [...] NIPT-very concerned (more content not included)... Normal [facility] Miscellaneous procedureOrder ed By: Aye Mcdowell on 10-04-2024 Miscellaneous Test Comment SEE SCANNED REPORT [facility] NATREESEon 10-04-2024 TASIA SEE SCANNED REPORT Normal [facility] Comment on above: Performed By: #### L 900.0098 #### [facility] [address] [place], [place], [address] PAP IG HPV APTIMA 16/18,45on 09-28-2024 ADEQ Comment Normal . [facility] Comment on above: Order Comment: Speci men Comment: [id number] Comment: Source.............Cervix;EndocervixSpecimen Comment: LMP / Prev Treat...[id number] Comment: Other..............Specimen Comment: No. of containers..01 ThinPrep Vial Result Comment: Sati sfactory for evaluation. No endocervical component is identified. An endocervical component is not commonly seen in the patient. Performed By: #### L 7400.0280, M100.2200, L7000.1800 ####[facility] [address] [facility] [place], [place], [id number] COMM . Normal . [facility] Comment on above: Order Comment: Speci men Comment: [id number] Comment: Source.............Cervix;EndocervixSpecimen Comment: LMP / Prev Treat...[id number] Comment: Other..............Specimen Comment: No. of containers..01 ThinPrep Vial Performed By: #### L 7400.0280, M100.2200, L7000.1800 ####[facility] [address] [place], [place], [address] COMMENT Comment Normal . [facility] Comment on above: Order Comment: Speci men Comment: [id number] Comment: Source.............Cervix;EndocervixSpecimen Comment: LMP / Prev Treat...[id number] Comment: Other..............Specimen Comment: No. of containers..01 ThinPrep Vial Result Comment: This liquid based ThinPrep(R) pap test was screened with the use of an image guided system. Performed By: #### L 7400.0280, M100.2200, L7000.1800 ####[facility] [address] [place], [address] DIAG Comment Normal . [facility] Comment on above: Order Comment: Speci men Comment: [id number] Comment: Source.............Cervix;EndocervixSpecimen Comment: LMP / Prev Treat...[id number] Comment: Other..............Specimen Comment: No. of containers..01 ThinPrep Vial Result Comment: NEGA TIVE FOR INTRAEPITHELIAL LESION OR MALIGNANCY. Performed By: #### L 7400.0280, M100.2200, L7000.1800 ####[facility] [address] [place], [place], [address] HPV APTIMA, HR Negative Normal Negative [facility] Comment on above: Order Comment: Speci men Comment: [id number] Comment: Source.............Cervix;EndocervixSpecimen Comment: LMP / Prev Treat...[id number] Comment: Other..............Specimen Comment: No. of containers..01 ThinPrep Vial Result Comment: This nucleic acid amplification test detects fourteen high- risk HPV types (16,18,31,33,35,39,45,51,52,56,58,59,66,68) without differentiation. Performed By: #### L 7400.0280, M100.2200, L7000.1800 ####[facility] [address] [place], [address] HPV Sarah Rfx Comment Normal . [facility] Comment on above: Order Comment: Speci men Comment: [id number] Comment: Source.............Cervix;EndocervixSpecimen Comment: LMP / Prev Treat...[id number] Comment: Other..............Specimen Comment: No. of containers..01 ThinPrep Vial Result Comment: Crit eria not met, HPV Genotype not performed. Performed at: [facility] - [facility] [id number] Side Laster: Silvia Irwin MD, Phone: [phone] Performed at: =G - [facility] [address] [id number] Side Laster: Silvia Irwin MD, Phone: [phone] Performed By: #### L 7400.0280, M100.2200, L7000.1800 ####[facility] [address] [place], [place], [address] PAPSMR Comment Normal . [facility] Comment on above: Order Comment: Speci men Comment: [id number] Comment: Source.............Cervix;EndocervixSpecimen Comment: LMP / Prev Treat...[id number] Comment: Other..............Specimen Comment: No. of containers..01 ThinPrep [...] Performed By: #### L 7400.0280, M100.2200, L7000.1800 ####[facility] [address] [place], [place], [address] PERFORM Comment Normal . [facility] Comment on above: Order Comment: Speci men Comment: [id number] Comment: Source.............Cervix;EndocervixSpecimen Comment: LMP / Prev Treat...[id number] Comment: Other..............Specimen Comment: No. of containers..01 ThinPrep Vial Result Comment: Tammy Horan, Underwriting Sales Representative (ASCP) Performed By: #### L 7400.0280, M100.2200, L7000.1800 ####[facility] [address] [place], [address] Chlamydia/GC ARIAN aptimaon CHLAMY,NUC ACID Negative Normal Negative [facility] Comment on above: Performed By: #### L 7400.0280, M100.2200, L7000.1800 #### [facility] [address] [place], [address] GC BY NUC ACID Negative Normal Negative [facility] Comment on above: Result Comment: Perf ormed at: =G - [facility] [address] [id number] Side Laster: Silvia Irwin MD, Phone: [phone] Performed By: #### L 7400.0280, M100.2200, L7000.1800 #### [facility] [address] [place], [address] Urine Cultureon 09-24-2024 URC Culture exhibits no growth. Normal [facility] Comment on above: Performed By: #### L 7400.0280, M100.2200, L7000.1800 #### [facility] [address] [place], [address] Absolute lymphocyte countOrd ered By: Greg Rich on 09-23-2024 Lymphocytes Auto (Unsp spec) [#/Vol] 2.53 10*3/uL 0.83-4.51 [facility] Absolute neutrophil countOrd ered By: Greg Rich on 09-23-2024 Neutrophils (Bld) [#/Vol] 8.7 10*3/uL High 2.0-7.7 [facility] Automated lymphocyte count a s percentage of total leukocytesOrdered By: Greg Rich on 09-23-2024 Lymphocytes/100 WBC Auto (Unsp spec) 20.5 % 19-41 [facility] Basophil percentageOrdered B y: Greg Rich on 09-23-2024 Basophils/100 WBC (Bld) 0.5 % 0-1 [facility] C. trachomatis rRNA ARIAN+prob e Ql (Unsp spec)Ordered By: Greg Andry on 09-23-2024 Chlamydia DNA (ARIAN) Negative Negative [facility] CBC W/Diff, Automatedon 09-11 Absolute Lymph 2.53 X10 3/uL Normal 0.83-4.51 [facility] Comment on above: Performed By: #### L 900.0098, BTS, L3890.6006, L3890.6301, L509.4006, L3890.6102, L100.0100, L509.8002, L501.9985 ####[facility] [address] [place], [address] Absolute Neut 8.7 X10 3/uL High 2.0-7.7 [facility] Comment on above: Performed By: #### L 900.0098, BTS, L3890.6006, L3890.6301, L509.4006, L3890.6102, L100.0100, L509.8002, L501.9985 ####[facility] [address] [place], [address] Basophils/100 WBC (Bld) 0.5 % Normal 0-1 [facility] Comment on above: Performed By: #### L 900.0098, BTS, L3890.6006, L3890.6301, L509.4006, L3890.6102, L100.0100, L509.8002, L501.9985 ####[facility] [address] [place], [place], [phone] Eosinophils/100 WBC (Bld) 1.2 % Normal 0-5 [facility] Comment on above: Performed By: #### L 900.0098, BTS, L3890.6006, L3890.6301, L509.4006, L3890.6102, L100.0100, L509.8002, L501.9985 ####[facility] [address] [place], [address]) Erythrocyte distribution width (RBC) [Ratio] 14.0 % Normal 11.6-14.6 [facility] Comment on above: Performed By: #### L 900.0098, BTS, L3890.6006, L3890.6301, L509.4006, L3890.6102, L100.0100, L509.8002, L501.9985 ####[facility] [address] [place], [address](295) Hematocrit (Bld) [Volume fraction] 36.9 % Low 37-47 [facility] Comment on above: Performed By: #### L 900.0098, BTS, L3890.6006, L3890.6301, L509.4006, L3890.6102, L100.0100, L509.8002, L501.9985 ####[facility] [address] [place], [place], [phone]) Hemoglobin (Bld) [Mass/Vol] 12.0 g/dL Normal 12.0-15.0 [facility] Comment on above: Performed By: #### L 900.0098, BTS, L3890.6006, L3890.6301, L509.4006, L3890.6102, L100.0100, L509.8002, L501.9985 ####[facility] [address] [place], [address] IG% 0.300 Normal 0.0-0.9 [facility] Comment on above: Result Comment: IG% - Immature Granulocytes (promyelocytes, myelocytes and metamyelocytes) > 1% indicates that a LEFT SHIFT is Present. Performed By: #### L 900.0098, BTS, L3890.6006, L3890.6301, L509.4006, L3890.6102, L100.0100, L509.8002, L501.9985 ####[facility] [address] [place], [address] Lymphocytes/100 WBC (Bld) 20.5 % Normal 19-41 [facility] Comment on above: Performed By: #### L 900.0098, BTS, L3890.6006, L3890.6301, L509.4006, L3890.6102, L100.0100, L509.8002, L501.9985 ####[facility] [address] [place], [address] MCH (RBC) [Entitic mass] 27.3 pg Normal 27.0-32.0 [facility] Comment on above: Performed By: #### L 900.0098, BTS, L3890.6006, L3890.6301, L509.4006, L3890.6102, L100.0100, L509.8002, L501.9985 ####[facility] [address] [place], [address] MCHC (RBC) [Mass/Vol] 32.5 g/dL Normal 32-36 [facility] Comment on above: Performed By: #### L 900.0098, BTS, L3890.6006, L3890.6301, L509.4006, L3890.6102, L100.0100, L509.8002, L501.9985 ####[facility] [address] [place], [address] MCV (RBC) [Entitic vol] 83.9 fL Normal 81-99 [facility] Comment on above: Performed By: #### L 900.0098, BTS, L3890.6006, L3890.6301, L509.4006, L3890.6102, L100.0100, L509.8002, L501.9985 ####[facility] [address] [place], [address] Monocytes/100 WBC (Bld) 7.0 % Normal 0-10 [facility] Comment on above: Performed By: #### L 900.0098, BTS, L3890.6006, L3890.6301, L509.4006, L3890.6102, L100.0100, L509.8002, L501.9985 ####[facility] [address] [place], [address] Neutrophils/100 WBC (Bld) 70.5 % High 47-70 [facility] Comment on above: Performed By: #### L 900.0098, BTS, L3890.6006, L3890.6301, L509.4006, L3890.6102, L100.0100, L509.8002, L501.9985 ####[facility] [address] [place], [address] Nucleated RBC (Bld) [#/Vol] 0 10*3/uL Normal 0-5 [facility] Comment on above: Performed By: #### L 900.0098, BTS, L3890.6006, L3890.6301, L509.4006, L3890.6102, L100.0100, L509.8002, L501.9985 ####[facility] [address] [place], [address] Platelet mean volume (Bld) [Entitic vol] 10.7 fL Normal 6.2-12.0 [facility] Comment on above: Performed By: #### L 900.0098, BTS, L3890.6006, L3890.6301, L509.4006, L3890.6102, L100.0100, L509.8002, L501.9985 ####[facility] [address] [place], [address] Platelets (Bld) [#/Vol] 294 10*3/uL Normal 150-450 [facility] Comment on above: Performed By: #### L 900.0098, BTS, L3890.6006, L3890.6301, L509.4006, L3890.6102, L100.0100, L509.8002, L501.9985 ####[facility] [address] [place], [address] RBC (Bld) [#/Vol] 4.40 10*6/uL Normal 4.2-5.4 [facility] Comment on above: Performed By: #### L 900.0098, BTS, L3890.6006, L3890.6301, L509.4006, L3890.6102, L100.0100, L509.8002, L501.9985 ####[facility] [address] [place], [address] RDW SD 43.3 fl Normal 35.1-43.9 [facility] Comment on above: Performed By: #### L 900.0098, BTS, L3890.6006, L3890.6301, L509.4006, L3890.6102, L100.0100, L509.8002, L501.9985 ####[facility] [address] [place], [address] WBC (Bld) [#/Vol] 12.3 10*3/uL High 4.4-11.0 [facility] Comment on above: Performed By: #### L 900.0098, BTS, L3890.6006, L3890.6301, L509.4006, L3890.6102, L100.0100, L509.8002, L501.9985 ####[facility] [address] [place], [address] Cervical or vaginal specimen microscopic examination by liquid based cytology (reportOrdered By: Greg Rich on 09-23-2024 Cytology report Cyto stain.thin prep Doc (Cvx/Vag) Comment . [facility] Comment on above: Criteria not met, HP V Genotype not performed.Performed at: - [facility] [id number] Director: Silvia Irwin MD, Phone: [phone] at: =[facility] [id number] Director: Silvia Irwin MD, Phone: [phone] Cervical or vagninal specime n microscopic examination by cytology stain (reported asOrdered By: Greg Rich on 09-23-2024 Cytology report Cyto stain Doc (Cvx/Vag) Comment . [facility] Comment on above: The Pap smear is [...] rRNA ARIAN+probe Ql (Unsp spec) Negative Negative [facility] [employer] Cyto stain Nom (C vx/Vag) [ID]Ordered By: Greg Rich on 09-23-2024 Pap Smear Performed By Comment . [facility] Comment on above: oJrge A Art totechnologist (ASCP) Cytology report Cyto stain D oc (Cvx/Vag)Ordered By: Greg Rich on 09-23-2024 Thin Prep Pap Smear Comment . [facility] Comment on above: The Pap [...] 09-23-2024 HPV Genotype Special Info Comment . [facility] Comment on above: Criteria not met, HP V Genotype not performed.Performed at: - [facility] [id number] Director: Silvia Irwin MD, Phone: [phone] at: = - [facility] [address] [id number] Director: Silvia Irwin MD, Phone: [phone] Detection in cervical specim en of any of human papilloma virus (HPV) 16, 18, 31, 33,Ordered By: Greg Rich on 09-23-2024 HPV 16+18+31+33+35+39+45+51+ 52+56+58+59+66+68 DNA Probe+sig amp Ql (Cvx) Negative Negative [facility] Comment on above: This nucleic acid am plification test detects fourteen high-risk HPV types (16,18,31,33,35,39,45,51,52,56,58,59,66,68)without differentiation. Eosinophil percentageOrdered By: Greg Rich on 09-23-2024 Eosinophils/100 WBC (Bld) 1.2 % 0-5 [facility] Erythrocyte distribution wid th ratioOrdered By: Greg Rich on 09-23-2024 Erythrocyte distribution width (RBC) [Ratio] 14.0 % 11.6-14.6 [facility] Erythrocyte distribution wid th standard deviationOrdered By: Greg Rich on 09-23-2024 Erythrocyte distribution width (RBC) [Entitic vol] 43.3 fL 35.1-43.9 [facility] Erythrocyte distribution width (RBC) [Ratio] 43.3 fl 35.1-43.9 [facility] HBV surface Ag Ql (S)Ordered By: Greg Rich on 09-23-2024 Hepatitis B Surface Antigen Non-Reactive Nonreactive [facility] Comment on above: Reactive: Presumptiv e evidence of HBV. Repeatedly reactive samples must be confirmed using a neutralization test ([employer] HBsAg Confirmatory Test)Non-Reactive: HBsAg not detected; does not exclude the possibility of exposure to HBV HPV 16+18+31+33+35+39+45+51+ 52+56+58+59+66+68 DNA Probe+sig amp Ql (Cvx)Ordered By: Greg Rich on 09-23-2024 Human Papillomavirus High Risk Negative Negative [facility] Comment on above: This nucleic acid am plification test detects fourteen high-risk HPV types (16,18,31,33,35,39,45,51,52,56,58,59,66,68)without differentiation. Hematocrit Auto (Bld) [Volum e fraction]Ordered By: Greg Rich on 09-23-2024 Hematocrit (Bld) [Volume fraction] 36.9 % Low 37-47 [facility] Hemoglobin A1con 09-23-2024 HbA1c (Bld) [Mass fraction] 5.6 % Low <=5.6 [facility] Comment on above: Performed By: #### L 900.0098, BTS, L3890.6006, L3890.6301, L509.4006, L3890.6102, L100.0100, L509.8002, L501.9985 ####[facility] [address] [place], [place], [id number] Hemoglobin A1c percentageOrd ered By: Greg Rich on 09-23-2024 HbA1c (Bld) [Mass fraction] 5.6 % Low >5.7 [facility] Hemoglobin measurementOrdere d By: Greg Rich on 09-23-2024 Hemoglobin (Bld) [Mass/Vol] 12.0 g/dL 12.0-15.0 [facility] Hepatitis C antibodyOrdered By: Greg Rich on 09-23-2024 Hepatitis C Antibody Non-Reactive Nonreactive [facility] Comment on above: Reactive: Presumptiv e evidence of antibodies to HCV. Follow CDC recommendations for supplemental testing.Non-Reactive: Antibodies to HCV were not detected; does not exclude the possibility of exposure to HCVReactive Results are presumptive evidence of antibodies to HCV. Follow CDC recommendations for supplemental testing.Order confirmation testing: HCV Quant by PCR testing - HCVPCR #[id number] Non Reactive: < 0.8 Equivocal: >/= 0.8 to < 1.0 Reactive: >/= 1.0The CDC requires that a reactive/equivocal HCV antibody result be sent out for confirmation. HCV Quant by PCR testing. Image-guided ThinPrep PapOrd ered By: Greg Rich on 09-23-2024 Pap Smear Note Comment . [facility] Comment on above: This liquid based Th inPrep(R) pap test was screened withthe use of an image guided system. Image-guided liquid-based Pa pOrdered By: Greg Rich on 09-23-2024 Pap Smear Diagnosis Comment . [facility] Comment on above: NEGATIVE FOR INTRAEP ITHELIAL LESION OR MALIGNANCY. Immature granulocytes/100 WB C Auto (Bld)Ordered By: Greg Rich on 09-23-2024 Immature granulocytes/100 WBC (Bld) 0.300 % 0.0-0.9 [facility] Comment on above: IG% - Immature Granu locytes (promyelocytes, myelocytes and metamyelocytes) > 1% indicates that a LEFT SHIFT is Present. L3890.6006on 09-23-2024 HIV Non-Reactive Normal Nonreactive [facility] Comment on above: Result Comment: Non- Reactive Reactive Repeatedly reactive samples must be confirmed according to CDC recommended confirmatory algorithms. The subresults for either HIVAG or AHIV can be used as an aid in the selection of the confirmation algorithm for reactive samples. Send out specimens with Reactive results to [facility] for confirmation. Order the HIV antibody detection and differentiation: [id number] Performed By: #### L 900.0098, BTS, L3890.6006, L3890.6301, L509.4006, L3890.6102, L100.0100, L509.8002, L501.9985 ####[facility] [address] [place], [address] L3890.6102on 09-23-2024 HEP B Surf Ag Non-Reactive Normal Nonreactive [facility] Comment on above: Result Comment: Reac tive: Presumptive evidence of HBV. Repeatedly reactive samples must be confirmed using a neutralization test ([employer] HBsAg Confirmatory Test) Non-Reactive: HBsAg not detected; does not exclude the possibility of exposure to HBV Performed By: #### L 900.0098, BTS, L3890.6006, L3890.6301, L509.4006, L3890.6102, L100.0100, L509.8002, L501.9985 ####[facility] [address] [place] [place], [address] L3890.6301on 09-23-2024 Hepatitis C Ab Non-Reactive Normal Nonreactive [facility] Comment on above: Result Comment: Reac tive: Presumptive evidence of antibodies to HCV. Follow CDC recommendations for supplemental testing. Non-Reactive: Antibodies to HCV were not detected; does not exclude the possibility of exposure to HCV Reactive Results are presumptive evidence of antibodies to HCV. Follow CDC recommendations for supplemental testing. Order confirmation testing: HCV Quant by PCR testing - HCVPCR #[id number] Non Reactive: < 0.8 Equivocal: >/= 0.8 to < 1.0 Reactive: >/= 1.0 The [facility] requires that a reactive/equivocal HCV antibody result be sent out for confirmation. HCV Quant by PCR testing. Performed By: #### L 900.0098, BTS, L3890.6006, L3890.6301, L509.4006, L3890.6102, L100.0100, L509.8002, L501.9985 ####[facility] [address] [facility] [place], [address] L509.4006on 09-23-2024 Rubella IgG REAC Normal Nonreactive [facility] Comment on above: Result Comment: Anti body Result: Interpretation Non-Reactive: Non-Immune Reactive: Immune The following results were obtained with the [employer]ys Rubella IgG assay. Results from assays of other manufacturers cannot be used interchangeably. Performed By: #### L 900.0098, BTS, L3890.6006, L3890.6301, L509.4006, L3890.6102, L100.0100, L509.8002, L501.9985 ####[facility] [address] [facility] [place], [address] L509.8002on 09-23-2024 Syphilis Abs Non-Reactive Normal Nonreactive [facility] Comment on above: Performed By: #### L 900.0098, BTS, L3890.6006, L3890.6301, L509.4006, L3890.6102, L100.0100, L509.8002, L501.9985 ####[facility] [address] [place], [address] Laboratory - CytologyOrdered By: Greg Rich on 09-23-2024 [employer] Cyto stain Nom (Cvx/Vag) [ID] Comment . [facility] Comment on above: Jorge A Art totechnologist (ASCP) Laboratory - Microbiology an d Antimicrobial susceptibilityOrdered By: Greg Rich on 09-23-2024 HBV surface Ag Ql (S) Non-Reactive Nonreactive [facility] Comment on above: Reactive: Presumptiv e evidence of HBV. Repeatedly reactive samples must be confirmed using a neutralization test ([employer]ys HBsAg Confirmatory Test)Non-Reactive: HBsAg not detected; does not exclude the possibility of exposure to HBV Laboratory - Miscellaneous t estsOrdered By: Greg Rich on 09-23-2024 Service comment (Unsp spec) [Interp] . . [facility] Lymphocytes Auto (Unsp spec) [#/Vol]Ordered By: Greg Rich on 09-23-2024 Lymphocytes (Bld) [#/Vol] 2.53 10*3/uL 0.83-4.51 [facility] Lymphocytes/100 WBC Auto (Un sp spec)Ordered By: Greg Rich on 09-23-2024 Lymphocytes/100 WBC (Bld) 20.5 % 19-41 [facility] MCV (mean corpuscular volume ) determinationOrdered By: Greg Rich on 09-23-2024 MCV (RBC) [Entitic vol] 83.9 fL 81-99 [facility] Mean corpuscular hemoglobin (MCH) determinationOrdered By: Greg Rich on 09-23-2024 MCH (RBC) [Entitic mass] 27.3 pg 27.0-32.0 [facility] Mean corpuscular hemoglobin concentration (MCHC) determinationOrdered By: Greg Rich on 09-23-2024 MCHC (RBC) [Mass/Vol] 32.5 g/dL 32-36 [facility] Mean platelet volume determi nationOrdered By: Greg Rich on 09-23-2024 Platelet mean volume (Bld) [Entitic vol] 10.7 fL 6.2-12.0 [facility] Miscellaneous procedureOrder ed By: Greg Rich on 09-23-2024 Miscellaneous Test Comment SEE SCANNED REPORT [facility] Monocyte percentageOrdered B y: Greg Rich on 09-23-2024 Monocytes/100 WBC (Bld) 7.0 % 0-10 [facility] NATERAon 09-23-2024 NATURA SEE SCANNED REPORT Normal [facility] Comment on above: Order Comment: Comme nts: NIPT with Gender Performed By: #### L 900.0098, BTS, L3890.6006, L3890.6301, L509.4006, L3890.6102, L100.0100, L509.8002, L501.9985 ####[facility] [address] [place], [address] Neisseria gonorrhoeae nuclei c acid detection by amplified probe techniqueOrdered By: Greg Rich on 09-23-2024 N. gonorrhoeae DNA ARIAN+probe Ql (Unsp spec) Negative Negative [facility] Comment on above: Performed at: =[address] [id number] Director: Silvia Irwin MD, Phone: [phone] Neutrophil percentageOrdered By: Greg Rich on 09-23-2024 Neutrophils/100 WBC (Bld) 70.5 % High 47-70 [facility] No Panel InformationOrdered By: Greg Rich on 09-23-2024 Pap Smear Specimen Adequacy Comment . [facility] Comment on above: Satisfactory for rosa luation. No endocervical component is identified.An endocervical component is not commonly seen in the patient. HIV (1&2) Antibody Non-Reactive Nonreactive [facility] Comment on above: Non-ReactiveReactive Repeatedly reactive samples must be confirmed according to CDC recommended confirmatory algorithms. The subresults for either HIVAG or AHIV can be used as an aid in the selection of the confirmation algorithm for reactive samples.Send out specimens with Reactive results to [facility] for confirmation.Order the HIV antibody detection and differentiation: #[id number] Nucleated red blood cell per centageOrdered By: Greg Rich on 09-23-2024 Nucleated RBC/100 WBC (Bld) [Ratio] 0 % 0-5 [facility] Visit Reporton 09-23-2024 [employer] [employer] Office Visit Report [facility] [address], [address] [place] [address] OFFICE VISIT Date of Service: 09/23/24 MR#: [id number] Acct: [id number] Name: DEMETRIUS FERNANDES Rep #: [id number] : 1990 Provider: ZACHARY Way ams Age/Sex: 34/F [place] [facility] Status: Signed Intake Vital Signs 04/13/21 20:08 [...] occupational status: employed and unemployed 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 Date Name GA/Weeks Outcome Route Bth [facility] Timmy 41 live - full term 8#2oz Male epidural [facility] [place] Delivery Date: 04/14/21 Last [...] dates. accepts (more content not included)... Normal [facility] Platelet countOrdered By: Akbar Rich on 09-23-2024 Platelets (d) [#/Vol] 294 10*3/uL 150-450 [facility] RBC Auto (d) [#/Vol]Ordere d By: Greg Rich on 09-23-2024 RBC (Bld) [#/Vol] 4.40 10*6/uL 4.2-5.4 [facility] Rubella immune status determ ination by IgG antibody assayOrdered By: Greg Rich on 09-23-2024 Rubella IgG Antibody REAC Nonreactive [facility] Comment on above: Antibody Result: Int erpretationNon-Reactive: Non-ImmuneReactive: ImmuneThe following results were obtained with the [employer] Rubella IgG assay. Results from assays of other manufacturers cannot be used interchangeably. Service comment (Unsp spec) [Interp]Ordered By: Greg Rich on 09-23-2024 Pap Smear Comment (3) . . [facility] T. pallidum abOrdered By: Akbar Rich on 09-23-2024 Syphilis Total Antibody Non-Reactive Nonreactiv e [facility] Type AND Screenon 09-23-2024 ABO and Rh group Nom (Bld) Blood group O Rh(D) negative Normal [facility] Comment on above: Order Comment: PN Performed By: #### L 900.0098, BTS, L3890.6006, L3890.6301, L509.4006, L3890.6102, L100.0100, L509.8002, L501.9985 ####[facility] [address] [place], [address] Urine cultureOrdered By: Luan Rich on 09-23-2024 Bacteria identified Cx Nom (U) Culture exhibits no growth. [facility] White blood cell (WBC) count Ordered By: Greg Rich on 09-23-2024 WBC (Bld) [#/Vol] 12.3 10*3/uL High 4.4-11.0 [facility] Serum Varicella zoster virus IgG antibody assay by immunoassay (units/volume)Ordered By: Cristina Barros on 03-06-2023 VZV IgG IA Qn (S) 3665 index Immune >165 [facility] Comment on above: Negative <135 Equivo eben 135 - 165 Positive >165A positive result generally indicates exposure to thepathogen or administration of specific immunoglobulins,but it is not indication of active infection or stageof disease.Performed at: [employer] [address] [place], [place] [id number] Director: Jake Ferreira PhD, Phone: [phone] No Panel Informationon 02-19 Rubella IgG Antibody Reactive Nonreactive [facility] Work Phone: Comment on above: Antibody Results Int erpretation of Immune Status Non Reactive Presumed Non-Immune Equivocal Equivocal Reactive Presumed Immune Serum measles virus IgG anti body assay by immunoassay (units/volume)on 02-19-2022 MeV IgG IA Qn (S) 150.0 AU/mL Immune >16.4 [facility] Work Phone: Comment on above: Negative <13.5 Equiv ocal 13.5 - 16.4 Positive >16.4Presence of antibodies to Rubeola is presumptive evidenceof immunity except when acute infection is suspected.Performed at: [employer] [address] [place], [place] [id number] Director: Jake Ferreira PhD, Phone: [phone] Serum mumps virus IgG antibo dy assay (units/volume)on 02-19-2022 MuV IgG Qn (S) 16.6 AU/mL Immune >10.9 [facility] Work Phone: Comment on above: Negative <9.0 Equivo eben 9.0 - 10.9 Positive >10.9A positive result generally indicates past exposure toMumps virus or previous vaccination. Vital Signs Date Time Vital Sign Value Performing Clinician Juancarlosi litpatti 03-24-2025 10:-040 Body height 175.26 cm Erick Brooks [employer] Work Phone: [facility] 03-24-2025 10: Body mass index (BMI) [Ratio] 51 kg/m2 Erick [place] [employer] Work Phone: [facility] 03-24-2025 10: Body weight 156.74 kg Erick Brooks [employer] Work Phone: [facility] 03-24-2025 10:040 Diastolic blood pressure 76 mm[Hg] Erick [place] [employer] Work Phone: [facility] 03-24-2025 10:26-0400 Systolic blood pressure 132 mm[Hg] Erick Brooks [employer] Work Phone: [facility] 03-24-2025 09:10-0400 Body height 175.26 cm Erick [place] [employer] Work Phone: [facility] 03-24-2025 09:10-0400 Body mass index (BMI) [Ratio] 51.1 kg/m2 Erick Brooks [employer] Work Phone: [facility] 03-24-2025 09:10-0400 Body weight 157 kg Erick [place] [employer] Work Phone: [facility] 03-24-2025 09:10-0400 Diastolic blood pressure 64 mm[Hg] Erick Brooks [employer] Work Phone: [facility] 03-24-2025 09:10-0400 Heart rate 82 /min Erick [place] [employer] Work Phone: [facility] 03-24-2025 09:10-0400 Systolic blood pressure 133 mm[Hg] Erick [place] [employer] Work Phone: [facility] 03-21-2025 10:29-0400 Body height 175.26 cm Erick [place] [employer] Work Phone: [facility] 03-21-2025 10:29-0400 Body mass index (BMI) [Ratio] 50.5 kg/m2 Erick [place] [employer] Work Phone: [facility] 03-21-2025 10:29-0400 Body weight 155.29 kg Erick [place] [employer] Work Phone: [facility] 03-21-2025 10:29-0400 Diastolic blood pressure 72 mm[Hg] Erick Brooks [employer] Work Phone: [facility] 03-21-2025 10:29-0400 Systolic blood pressure 127 mm[Hg] Erick [place] [employer] Work Phone: [facility] 03-15-2025 10:55-0400 Respiratory rate 16 /min Erick Brooks [employer] Work Phone: [facility] 03-15-2025 10:44-0400 Diastolic blood pressure 66 mm[Hg] Erick [place] [employer] Work Phone: [facility] 03-15-2025 10:44-0400 Heart rate 74 /min Erick Brooks [employer] Work Phone: [facility] 03-15-2025 10:44-0400 Systolic blood pressure 123 mm[Hg] Erick [place] [employer] Work Phone: [facility] 03-15-2025 10:40-0400 Body height 175.26 cm Erick Brooks [employer] Work Phone: [facility] 03-15-2025 10:40-0400 Body mass index (BMI) [Ratio] 49.8 kg/m2 Erick [place] [employer] Work Phone: [facility] 03-15-2025 10:40-0400 Body weight 153 kg Erick [place] [employer] Work Phone: [facility] 03-09-2025 10:33-0400 Heart rate 67 /min Erick Brooks [employer] Work Phone: [facility] 03-09-2025 10:33-0400 SaO2% (BldA) [Mass fraction] 96 % Erick [place] [employer] Work Phone: [facility] 03-09-2025 10:29-0400 Body height 175.26 cm Erick [place] [employer] Work Phone: [facility] 03-09-2025 10:29-0400 Body mass index (BMI) [Ratio] 50.1 kg/m2 Erick Brooks [employer] Work Phone: [facility] 03-09-2025 10:29-0400 Body weight 154.1 kg Erick Brooks [employer] Work Phone: [facility] 03-09-2025 10:22-0400 Diastolic blood pressure 58 mm[Hg] Erick [place] [employer] Work Phone: [facility] 03-09-2025 10:22-0400 Systolic blood pressure 122 mm[Hg] Erick Brooks [employer] Work Phone: [facility] 03-09-2025 10:19-0400 Body temperature 97.5 [degF] Erick Brooks [employer] Work Phone: [facility] 03-09-2025 10:19-0400 Respiratory rate 18 /min Erick Brooks [employer] Work Phone: [facility] 03-09-2025 08:55-0400 Body height 175.26 cm Erick [place] [employer] Work Phone: [facility] 03-09-2025 08:54-0400 Body mass index (BMI) [Ratio] 50.1 kg/m2 Erick [place] [employer] Work Phone: [facility] 03-09-2025 08:54-0400 Body weight 153.93 kg Erick Brooks [employer] Work Phone: [facility] 03-09-2025 08:54-0400 Diastolic blood pressure 85 mm[Hg] Erick Brooks [employer] Work Phone: [facility] 03-09-2025 08:54-0400 Systolic blood pressure 136 mm[Hg] Erick [place] [employer] Work Phone: [facility] 02-22-2025 10:03-0400 Body height 175.26 cm Erick [place] [employer] Work Phone: [facility] 02-22-2025 10:03-0400 Body mass index (BMI) [Ratio] 49.9 kg/m2 Erick [place] [employer] Work Phone: [facility] 02-22-2025 10:03-0400 Body weight 153.34 kg Eirck Brooks [employer] Work Phone: [facility] 02-22-2025 10:03-0400 Diastolic blood pressure 76 mm[Hg] Erick Brooks [employer] Work Phone: [facility] 02-22-2025 10:03-0400 Systolic blood pressure 132 mm[Hg] Erick Brooks [employer] Work Phone: [facility] 02-07-2025 09:25-0400 Body height 175.26 cm Erick Brooks [employer] Work Phone: [facility] 02-07-2025 09:25-0400 Body mass index (BMI) [Ratio] 49 kg/m2 Erick Brooks [employer]C Work Phone: [facility] 02-07-2025 09:25-0400 Body weight 150.59 kg Erick [place] [employer] Work Phone: [facility] 02-07-2025 09:25-0400 Diastolic blood pressure 71 mm[Hg] Erick [place] [employer]C Work Phone: [facility] 02-07-2025 09:25-0400 Systolic blood pressure 107 mm[Hg] Erick Brooks [employer]-C Work Phone: [facility] 01-24-2025 08:40-0400 Body height 175.[address] Aye Dey DO Work Phone: [facility] 01-24-2025 08:30-0400 Body mass index (BMI) [Ratio] 48.9 kg/m2 Dr. Aye Dey DO Work Phone: [facility] 01-24-2025 08:30-0400 Body weight 150.[address] Aye Dey DO Work Phone: [facility] 01-24-2025 08:30-0400 Diastolic blood pressure 72 mm[Hg] Dr. Aye Dey DO Work Phone: [facility] 01-24-2025 08:30-0400 Systolic blood pressure 124 mm[Hg] Dr. Aye Dey DO Work Phone: [facility] 01-12-2025 09:43-0400 Body height 175.26 cm Greg Rich CNM Work Phone: [facility] 01-12-2025 09:43-0400 Body mass index (BMI) [Ratio] 48.4 kg/m2 Greg LUIM Work Phone: [facility] 01-12-2025 09:43-0400 Body weight 149 kg Greg LUIM Work Phone: [facility] 01-12-2025 09:43-0400 Diastolic blood pressure 82 mm[Hg] Greg LUIM Work Phone: [facility] 01-12-2025 09:43-0400 Systolic blood pressure 130 mm[Hg] Greg LUIM Work Phone: [facility] 12-16-2024 09:30-0400 Body height 175.26 cm Greg LUIM Work Phone: [facility] 12-16-2024 09:06-0400 Body mass index (BMI) [Ratio] 47.2 kg/m2 Greg LUIM Work Phone: [facility] 12-16-2024 09:06-0400 Body weight 145.14 kg Greg LUIM Work Phone: [facility] 12-16-2024 09:06-0400 Diastolic blood pressure 69 mm[Hg] Greg LUIM Work Phone: [facility] 12-16-2024 09:06-0400 Systolic blood pressure 119 mm[Hg] Greg LUIM Work Phone: [facility] 11-17-2024 08:40-0400 Body height 175.26 cm Greg Rich CNM Work Phone: [facility] 11-17-2024 08:40-0400 Body mass index (BMI) [Ratio] 46.8 kg/m2 Greg Rich CNM Work Phone: [facility] 11-17-2024 08:40-0400 Body weight 144.01 kg Greg Rich CNM Work Phone: [facility] 11-17-2024 08:40-0400 Diastolic blood pressure 80 mm[Hg] Greg Rich CNM Work Phone: [facility] 11-17-2024 08:40-0400 Systolic blood pressure 126 mm[Hg] Greg Rich CNM Work Phone: [facility] 10-22-2024 10:18-0400 Body mass index (BMI) [Ratio] 46 kg/m2 Greg Rich CNM Work Phone: [facility] 10-22-2024 10:18-0400 Body weight 141.57 kg Greg Rich CNM Work Phone: [facility] 10-22-2024 10:18-0400 Diastolic blood pressure 76 mm[Hg] Greg Rich CNM Work Phone: [facility] 10-22-2024 10:18-0400 Systolic blood pressure 119 mm[Hg] Greg LUIM Work Phone: [facility] 09-23-2024 09:08-0400 Body height 175.26 cm Greg Rich CNM Work Phone: [facility] 09-23-2024 09:05-0400 Body mass index (BMI) [Ratio] 45.6 kg/m2 Greg LUIM Work Phone: [facility] 09-23-2024 09:05-0400 Body weight 140.27 kg Greg Rich CNM Work Phone: [facility] 09-23-2024 09:05-0400 Diastolic blood pressure 67 mm[Hg] Greg Rich CNM Work Phone: [facility] 09-23-2024 09:05-0400 Systolic blood pressure 121 mm[Hg] Greg Rich CNM Work Phone: [facility] Encounters Encounter Date Encounter Type Care Provider Facility Start: 03-28-2025 ambulatory [facility] Start: 03-24-2025 Non-patient / Non-visit Dr. Fiordaliza Zhong MD -[facility] Start: 03-24-2025 End: 03-24-2025 ambulatory Erick Rodriguez [employer]C Work Phone: -[facility] Start: 03-24-2025 End: 03-24-[address] Fiordaliza Zhong MD -[facility] Work Phone: Start: 03-21-2025 End: 03-21-2025 ambulatory SELF REFERRED [facility] Start: 03-21-2025 End: 03-21-2025 ambulatory [facility] Start: 03-21-[address] Fiordaliza Zhong MD -Laboratory Specimen Work Phone: Start: 03-21-2025 ambulatory [facility] Start: 03-21-2025 End: 03-21-2025 ambulatory Erick [place] [employer]C Work Phone: -[facility] Start: 03-21-2025 End: 03-21-[address] Fiordaliza Zhong MD -[facility] Work Phone: Start: 03-17-2025 End: 03-17-2025 ambulatory [facility] Start: 03-16-2025 End: 03-16-2025 ambulatory AYE L [facility] Start: 03-15-2025 Non-patient / Non-visit Dr. Fiordaliza Zhong MD -[facility] Start: 03-15-2025 End: 03-15-2025 ambulatory Erick [place] [employer]C Work Phone: -[facility] Start: 03-15-2025 End: 03-15-[address] Fiordaliza Zhong MD -[facility] Work Phone: Start: 03-11-2025 End: 03-11-2025 ambulatory GREG RICH [facility] Start: 03-09-2025 ambulatory Aye Souza cility:[facility] Start: 03-09-2025 Non-patient / Non-visit Dr. Aye Dey DO -[facility] Start: 03-09-2025 End: 03-09-[address] Aye Dey DO -[facility] Work Phone: Start: 03-09-2025 End: 03-09-2025 ambulatory Erick Brooks [employer]C Work Phone: -[facility] Start: 03-07-2025 End: 03-07-2025 ambulatory [facility] Start: 02-22-2025 End: 02-22-2025 Patient encounter procedure Greg LUI -[facility] Work Phone: Start: 02-22-2025 End: 02-22-2025 ambulatory Erick [place] [employer]C Work Phone: -[facility] Start: 02-07-2025 End: 02-07-[address] Aye Dey DO -[facility] Work Phone: Start: 02-07-2025 End: 02-07-2025 ambulatory Erick [place] [employer]C Work Phone: -[facility] Start: 01-25-2025 End: 01-25-[address] Aye Dey DO Work Phone: -Laboratory Start: 01-25-2025 End: 01-25-2025 Patient encounter procedure Erick Rodriguez [employer]C -Laboratory Work Phone: Start: 01-24-2025 End: 01-24-2025 Patient encounter procedure Erick Rodriguez [employer]C -[facility] Work Phone: Start: 01-24-2025 End: 01-25-[address] Aye Dey DO Work Phone: -[facility] Start: 01-24-2025 End: 01-24-2025 ambulatory Erick Rodriguez BIT GRINDER Facility:[facility] Start: 01-12-2025 End: 01-12-2025 Patient encounter procedure Erick Rodriguez [employer]-C -[facility] Work Phone: Start: 01-12-2025 End: 01-12-2025 ambulatory Greg Rich CNM Work Phone: -[facility] Start: 12-16-2024 End: 12-16-[address] Fiordaliza Zhong MD -[facility] Work Phone: Start: 12-16-2024 End: 12-16-2024 ambulatory Greg Rich CNM Work Phone: [facility] Work Phone: Start: 11-23-2024 End: 11-23-2024 ambulatory GREG RICH [facility] Start: 11-17-2024 End: 11-17-2024 Patient encounter procedure Erick Rodriguez [employer]-C -[facility] Work Phone: Start: 11-17-2024 End: 11-17-2024 ambulatory Greg Rich CNM Work Phone: [facility] Work Phone: Start: 11-17-2024 End: 11-17-2024 ambulatory Erick [place] BIT GR[employer]ER Facility:[facility] Start: 10-22-2024 End: 10-22-[address] Aye Dey DO -[facility] Work Phone: Start: 10-22-2024 End: 10-22-2024 ambulatory Aye Dey Facility:[facility] Start: 10-04-2024 End: 10-04-2024 ambulatory Greg LUIM Work Phone: [facility] Work Phone: Start: 10-04-2024 End: 10-04-[address] Aye Dey DO -[facility] Start: 10-04-2024 End: 10-04-2024 ambulatory Aye Dey Facility:[facility] Start: 09-23-2024 End: 09-23-2024 Patient encounter procedure Greg Rich CNM -[facility] Work Phone: Start: 09-23-2024 End: 09-23-2024 ambulatory Greg LUIM Work Phone: [facility] Work Phone: Start: 09-23-2024 End: 09-23-2024 ambulatory Greg Rich Facility:[facility] Start: 03-06-2023 End: 03-06-2023 ambulatory [facility] Work Phone: Start: 03-06-2023 End: 03-06-2023 Patient encounter procedure [facility] Work Phone: Start: 02-19-2022 End: 02-19-2022 Patient encounter procedure [facility] Procedures Date Procedure Procedure Detail Performing Clinician Start: 03-21-2025 Beta-hemolytic Streptococcus culture Erick HINTON Work Phone: Start: 01-24-2025 Serologic test for syphilis Dr. Aye Dey DO Work Phone: Start: 11-17-2024 Procedure Greg LUIM Work Phone: Comment on above: Test Ordered: [id number] AFP, Serum, Open Sp jeb BifidaResults Report [...] Open Spina Bifida RiskFor further inquiries contact [employer] [facility] at [phone].This test was developed and its performance characteristicsdetermined by [employer]. It has not been cleared or approvedby the Food and Drug Administration.Performed at: - [facility] [id number] [place], [place] [id number] Director: Cara Lanza [facility], Phone: [phone] at: - [facility] [id number] Director: Jake Ferreira PhD, Phone: [phone] Test Ordered: [id number] AFP, Serum, Open Spina BifidaResults Comment TG Reference Range: .The MOM and risk factors of this report have been modifiedbased on new information supplied to us by the client ortheir designated financial foundations representative.The Weight was changed from Not provided. [...] RiskFor further inquiries contact [facility] at [phone].This test was developed and its performance characteristicsdetermined by [employer]. It has not been cleared or approvedby the Food and Drug Administration.Performed at: TG - [facility] [id number] [place], [place] [id number] Director: Cara Lanza [facility], Phone: [phone] at: CB - [facility] [address] [id number] Director: Jake Ferreira PhD, Phone: [phone] reported result: COMMENT Edited by: GISELA on 11/23/24:1609 AMENDED REPORT 11/23/24 160[facility] previously reported as: COMMENT Test Ordered: [id number] AFP, Serum, Open Spina BifidaResults Report TG [...] Open Spina Bifida RiskFor further inquiries contact [employer] [facility] at [phone] [place].This test was developed and its performance characteristicsdetermined by [employer]. It has not been cleared or approvedby the Food and Drug Administration.Performed at: - [facility] [id number] [place], [place] [id number] Director: Cara Lanza [facility], Phone: [phone] at: [facility] [id number] Director: Jake Ferreira PhD, Phone: [phone] Start: 10-04-2024 Procedure Greg Rich [facility] Work Phone: Start: 09-23-2024 Liquid based cervical cytology screening Greg Rich [facility] Work Phone: Comment on above: NEGATIVE FOR INTRAEPITHELIAL LESION OR M ALIGNANCY. This liquid based Th inPrep(R) pap test was screened withthe use of an image guided system. Start: 09-23-2024 Urine culture Greg Rich [facility] Work Phone: Start: 09-23-2024 Hepatitis C antibody measurement Greg collazo [facility] Work Phone: Comment on above: Reactive: Presumptive evidence of antibo dies to HCV. Follow CDC recommendations for supplemental testing.Non-Reactive: Antibodies to HCV were not detected; does not exclude the possibility of exposure to HCVReactive Results are presumptive evidence of antibodies to HCV. Follow CDC recommendations for supplemental testing.Order confirmation testing: HCV Quant by PCR testing - HCVPCR #[id number] Non Reactive: < 0.8 Equivocal: >/= 0.8 to < 1.0 Reactive: >/= 1.0The CDC requires that a reactive/equivocal HCV antibody result be sent out for confirmation. HCV Quant by PCR testing. Start: 09-23-2024 Procedure Greg Rich [facility] Work Phone: Start: 09-23-2024 Rubella IgG measurement Greg Rich [facility] [place] Work Phone: Comment on above: Antibody Result: InterpretationNon-React macario: Non-ImmuneReactive: ImmuneThe following results were obtained with the [employer] Rubella IgG assay. Results from assays of other manufacturers cannot be used interchangeably. Start: 09-23-2024 Serologic test for syphilis Greg Blair [facility] Work Phone: Plan of Treatment Date Care Activity Detail Author Start: 03-24-2025 Patient discharge [facility] Start: 03-15-2025 Nonstress test [facility] Start: 03-15-2025 Obstetric monitoring [facility] Start: 03-15-2025 Vital signs measurements [facility] Start: 03-15-2025 [facility] Start: 03-15-2025 Patient discharge [facility] Start: 03-09-2025 Nonstress test [facility] Start: 03-09-2025 Obstetric monitoring [facility] Start: 03-09-2025 Vital signs measurements [facility] Start: 03-09-2025 [facility] Start: 03-09-2025 Patient discharge [facility] Start: 01-24-2025 CBC W Auto Different ial panel - Blood [facility] Start: 01-24-2025 Measurement of gluco se 2 hours after glucose challenge for glucose tolerance test [facility] Start: 01-24-2025 Serologic test for syphilis [facility] Start: 01-24-2025 [facility] CBC W Auto Different ial panel - Blood [facility] Erythrocyte mean corpuscular volume determination [facility] Hematocrit [Volume Fraction] of Blood [facility] Hemoglobin [Mass/vol ume] in Blood [facility] Leukocytes [#/volume ] in Blood [facility] Mean corpuscular hemoglobin concentration determination [facility] Mean corpuscular hemoglobin determination [facility] Measurement of gluco se 2 hours after glucose challenge for glucose tolerance test [facility] Neutrophil count [facility] Neutrophil percent differential count [facility] Patient Education Kick Counts ED False Labor OB Triage: Return to Hospital or Notify Physician if you Experience: [facility] Work Phone: Platelets [#/volume] in Blood [facility] Red blood cell count [facility] Red cell distributio n width determination [facility] Serologic test for syphilis [facility] Streptococcus agalac tiae [Presence] in Unspecified specimen by Organism specific culture [facility] Immunizations Immunization Date Immunization Notes Care Provider Dwayne samson 01-24-2025 tetanus toxoid, redu lashon diphtheria toxoid, and acellular pertussis vaccine, adsorbed Dr. Aye Dey DO Work Phone: [facility] 01-12-2021 tetanus toxoid, redu lashon diphtheria toxoid, and acellular pertussis vaccine, adsorbed [facility] Payers Date Payer Category Payer Self-pay [id number] 2024 Unknown [id number] 1989 Unknown [id number] 2.16.840.1.195427.3.579.2.479 1989 Unknown [id number] 2.16.840.1.091713.3.579.2479 1989 Unknown [id number] 2.16.840.1.291712.3.579.2.479 1989 Unknown [id number] 2.16.840.1.215562.3.579.2.479 1989 Unknown [id number] 2.16.840.1.557235.3.579.2.479 1989 Unknown [id number] 2.16.840.1.591297.3.579.2.479 1989 Unknown [id number] 2.16.840.1.414604.3.579.2.479 1989 Unknown [id number] 2.16.840.1.845705.3.579.2.479 Unknown [id number] Unknown [id number] Unknown [id number] Unknown [facility] [id number] * * DO NOT USE [id number] Unknown [id number] 2.16.840.1.157008.3.579.2.462 Unknown [id number] 2.16.840.1.686618.3.579.2.462 Unknown [id number] 2.16.840.1.840184.3.579.2.462 Unknown [id number] 2.16.840.1.186673.3.579.2.462 Unknown [id number] 2.16.840.1.473893.3.579.2.462 Unknown [id number] 2.16.840.1.617780.3.579.2.462 Unknown [id number] 2.16.840.1.729044.3.579.2.462 Unknown [id number] 2.16.840.1.786626.3.579.2.462 Unknown [id number] 2.16.840.1.037183.3.579.2.462 Unknown [id number] 2.16.840.1.947121.3.579.2.462 Unknown [id number] 2.16.840.1.128493.3.579.2.462 Unknown [id number] 2.16.840.1.318481.3.579.2.462 Unknown [id number] 2.16.840.1.488815.3.579.2.462 Unknown [id number] 2.16.840.1.806988.3.579.2.462 Unknown [id number] 2.16.840.1.717364.3.579.2.462 Unknown [id number] 2.16.840.1.666996.3.579.2.462 Unknown [id number] 2.16.840.1.669875.3.579.2.462 Unknown [id number] 2.16.840.1.538200.3.579.2.462 Unknown [id number] 2.16.840.1.288572.3.579.2.462 Unknown [id number] 2.16.840.1.575358.3.579.2.462 Unknown [id number] 2.16.840.1.586547.3.579.2.462 Unknown [id number] 2.16840.1.840791.3.579.2.462 Unknown [id number] 2.16.840.1.606066.3.579.2.462 Unknown [id number] 2.16840.1.654211.3.579.2.462 Unknown [id number] 2.16.840.1.911983.3.579.2.462 Social History Date Type Detail Facility Start: 05-30-2021 Tobacco smoking stat [facility] Unknown if ever smoked [facility] Start: 1990 Sex Assigned At Female [facility] Start: 09-14-2024 [facility] Start: 10-04-2024 End: 10-09-2024 Sex Female (finding) [facility] Medical Equipment Procedure Code Equipment Code Equipment Origin al Text Equipment Identifier Dates Blood Sugar Diagnostic (Advanced Gluc Meter Test Strip) strip [facility]: [facility] Start: 03-07-2025 Blood Sugar Diagnostic (Advanced Gluc Meter Test Strip) strip Start: 03-07-2025 [facility] Start: 03-07-2025 Blood Sugar Diagnostic (Advanced Gluc Meter Test Strip) strip Start: 03-07-2025 [facility] Start: 03-07-2025 Blood Sugar Diagnostic (Advanced Gluc Meter Test Strip) strip Start: 03-07-2025 [facility] Start: 03-07-2025 Blood Sugar Diagnostic (Advanced Gluc Meter Test Strip) strip Start: 03-07-2025 [facility] Start: 03-07-2025 Blood Sugar Diagnostic (Advanced Gluc Meter Test Strip) strip Start: 03-07-2025 [facility] Start: 03-07-2025 Clinical Notes 09-23-2024 to 03-24-2025 Note Date & Type Note Facility 03-24-2025 Progress note [facility] 03-24-2025 Progress note [facility] 03-21-2025 Progress note [facility] 03-15-2025 Progress note [facility] 02-22-2025 Progress note [facility] 12-16-2024 Evaluation note Diagnosis Onset Date [...] Supervision of high-risk acute March 21 10:17am [facility] Work Phone: 1(150) 545-505006-05-2025 Evaluation note* Diagnosis Onset Date Resolution Status [...] of high-risk acute March 24, 2025 10:17am [facility] Work Phone: 1(652) 461-754306-05-[address] [facility] [address] [place] [address], [address] [place] [address] OFFICE VISIT Date of Service: 12/16/24 MR#: [id number] Acct: [id number] Name: DEMETRIUS FERNANDES Rep #: [id number] : 1990 Provider: Dr. Luther Zhong MD Age/Sex: 34/F [place] [facility] Status: Signed Intake Vital Signs 09/23/24 09:08 [...] occupational status: employed and unemployed current occupation: [employer] current occupational exposures/hazards: No pets and [...] 1-2 times per week duration: 30-45 minutes/day parul/uatsdin: None seatbelt use: always do you feel safe at home: Yes 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 Date Name GA/Weeks Outcome Route Bth Weight Gen Labor Lgth Anesthesia Del Locatn Provider FOB 04/14/21 Timmy 41 live - full term 8#2oz Male epidur al [facility] GP Froil[place] Delivery Date: 04/14/21 Last [...] NIPT-very concerned about weight with this . [facility] anatomy order placed 10/22/24 -?-?-?-?-?-?-?-?-?-?-?-?- 14w 5d 312 lb 2 oz (+3 lb 2 oz) 119/76 Negative -?-?-?-?-?-?-?-?-?-?-?-?- Negative 168 -?-?-?-?-?-?-?-?-?-?-?-?- JV- nipt was inc onclusive. plan for afp between 17-21 weeks. anatomy scan with [facility]. 11/17/24 -?-?-?-?-?-?-?-?-?-?-?-?- 18w 3d 317 lb [...] Today 12/16/24 0930 higinio MEDINA> Date _ Fiordlaiza Zhong MD Cosigner Signature: Date (if applicable) CC: ~ [facility]05-07-2025 Evaluation note* Diagnosis Onset Date Resolution [...] Supervision of high-risk acute February 22 9:59am [facility] Work Phone: 1(414) 227-911005-07-2025 Evaluation note* Diagnosis Onset Date Resolution Status [...] Supervision of high-risk acute March 09 8:54am [facility] Work Phone: 1(885) [phone] Evaluation note* Diagnosis Onset Date Resolution Status [...] Supervision of high-risk acute March 15, 10:20am [facility] Work Phone: 1(223) 581-157604-11-2025 Evaluation note* Diagnosis Onset Date Resolution Status [...] of high-risk acute January 24, 2025 8:22am [facility] Work Phone: 1(672) 971-515104-11-2025 Evaluation note* Diagnosis Onset Date Resolution Status [...] of high-risk acute February 07, 2025 9:17am [facility] Work Phone: 1(858) 778-179503-13-2025 NotePap Smear Specimen AdequacyMarch 2024 11:59pmComment.Satisfactory for evaluation. No endocervical component is identified.An endocervical component is not commonly seen in the patient.[facility] A#[id number] on above: Satisfactory for evaluation. No endocervical component is identified.An endocervical component is not commonly seen in the patient.09-23-2024 NotePap Smear Specimen AdequacyMarch 2024 11:59pmComment.Satisfactory for evaluation. No endocervical component is identified.An endocervical component is not commonly seen in the patient.[facility] A#[id number] on above:Satisfactory for evaluation. No endocervical component [...] of high-risk acute September 23, 2024 8:56am [facility] Work Phone: 1(119) 512-695203-13-2025 Evaluation note* Diagnosis Onset Date Resolution Status [...] high-risk acute November 17, 2024 8: 37am [facility] Work Phone: 1(959) 850-417703-13-2025 Evaluation note* Diagnosis Onset Date Resolution Status [...] high-risk acute December 16, 2024 9 :02am [facility] Work Phone: Evaluation noteNo assessment information available [facility] Work Phone: Hospital Discharge instructionsAdditional Instructions Scheduled non-stress tests in WP: Friday, 3 9am [facility]: Progress note Author Fiordaliza Zhong [facility] Note Date/Time December 16, 2024 9:30a m [facility] [address], [address] [place] [address] OFFICE VISIT Date of Service: 12/16/24 MR#: [id number] Acct: [id number] Name: NICHELLE FERNANDESALAN Vargas Rep #: [id number] : 1990 Provider: Dr. Luther Zhong MD Age/Sex: 34/F [place] [facility] Status: Signed Intake Vital Signs 09/23/24 09:08 [...] occupational status: employed and unemployed current occupation: [employer] current occupational exposures/hazards: No pets [...] 1-2 times per week duration: 30-45 minutes/day parul/uatsdin: None seatbelt use: always do you feel [...] Lgth Anesthesia Del Locatn Provider FOB 04/14/21 Timbo 41 live - full term 8#2oz Male epidur al [facility] GP Froilan Delivery Date: 04/14/21 Last [...] afp between 17-21 weeks. anatomy scan with [facility]. 11/17/24 -?-?-?-?-?-?-?-?-?-?-?-?- 18w 3d 317 lb [...] and Symptoms of Preeclampsia, Feeding No , [employer] and Family Medical Leave or Disability [...] Cosigner Signature: Date (if applicable) CC: ~ [facility] Work Phone: Progress note Author Greg Rich [facility] Note Date/Time February 22, 2025 10 :18am [facility] [address] [place] [address], [address] [place] [address] OFFICE VISIT Date of Service: 02/22/25 MR#: [id number] Acct: [id number] Name: DEMETRIUS FERNANDES Rep #: [id number] : 1990 Provider: ZACHARY Rich Age/Sex: 34/F [place] [facility] [place]: Signed Intake Vital Signs 01/12/25 09:43 02/07/25 09:25 02/22/25 10:03 Height 5 ft 9 in 5 ft 9 in 5 ft 9 in Weight: 338 lb 1 oz BMI 49.9 BP 132/76 H Intake Visit Reasons: 32 wk ob Chief Complaint: 32 wk OB 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 Date Name GA/Weeks Outcome Route Bth Weight Infant Gen Labor Lgth Anesthesia Del Locatn Provider FOB 04/14/21 Timbo 41 live - full term 8#2oz Male epidur al [facility] GP Froilan Delivery Date: 10/02/21 Last [...] and Symptoms of Preeclampsia, Feeding No , Bolt Education and Family Medical Leave or Disability [...] fallen in the past year?: No 02/22/25 1978 <Electronically signed by Greg heredia CNM> Date _ Greg Rich CNM Cosignpetros Signature: Date (if applicable) CC: ~ [facility] Work Phone: Progress note Author [facility] Date/Time March 15, 2025 11:12am [facility] Medical Records Department [address] [place] [address] OB Triage Progress Note 03/15/25 1110 MR#: [id number] Acct: [id number] Name: DEMETRIUS FERNANDES Rep #:[id number] : 1990 34 From: Fiordaliza moctezuma MD PCP: Dr. [place]mar Luna MD Status :REG CLI Y DOS: Location: [place] [address] Progress Notes Date of Service: 03/15/25 Progress Note: Patient presents for triage evaluation secondary to polyhydramnios FHT: 130-135 Moderate variability reactive no decelerations category I tracing [place]: no regular Contractions Assessment and plan: polyhydramnios 35 weeks Reactive NST, reassuring maternal and status patient discharged to home to follow-up as scheudled. See problem list details for additional plan information. Charges/Coding Procedures Urinary/Genital 52xxx-59xxx: 51396-50 non-stress test Interp Assessment & Plan (1) [...] MD; Dr. Fiordaliza Zhong MD ~ Signed [facility] Work Phone: Progress note Author Fiordaliza Zhong [facility] Note Date/Time March 21, 2025 11:06am [facility] [address] [place] [address], [address] [place] [address] OFFICE VISIT Date of Service: 03/21/25 MR#: [id number] Acct: [id number] Name: DEMETRIUS FERNANDES Rep #: [id number] : 1990 Provider: Dr. Luther Zhong MD Age/Sex: 34/F [place] [facility] [place]: Signed Intake Vital Signs 01/24/25 08:40 03/09/25 10:29 03/15/25 10:40 03/21/25 10:29 Height 5 ft 9 in 5 ft 9 in 5 ft 9 in 5 ft 9 in Weight: 342 lb 6 oz BMI 50.5 BP 127/72 H Intake Visit Reasons: 36 wk ob Furrier Designer Required: No Is patient in pain?: No [...] ea 03/07/25 03/21/25 Rx (FreeStyle Hardeep 2 [place]) lancets #200 ea 03/07/25 03/21/25 Rx Last [...] occupational status: employed and unemployed current occupation: [employer] [facility] current occupational exposures/hazards: No pets and animals: [...] 1-2 times per week duration: 30-45 minutes/day parul/uatsdin: None seatbelt use: always do you feel safe at home: Yes 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 Date Name GA/Weeks Outcome Route Bth Weight Infant Gen Labor Lgth Anesthesia Del Locatn Provider FOB 04/14/21 Timmy 41 live - full term 8#2oz Male epidur al [facility] GP Froilan Delivery Date: 04/14/21 Last [...] and Symptoms of Preeclampsia, Feeding No , Bolt Education and Family Medical Leave or Disability [...] Cosigner Signature: Date (if applicable) CC: ~ [facility] Work Phone: Progress note Author Fiordaliza Zhong [facility] Note Date/Time March 24, 2025 10:05am [facility] Medical Records Department [address] [place] [address] OB Triage Progress Note 03/24/25 1004 MR#: [id number] Acct: [id number] Name: DEMETRIUS FERNANDES Rep #:[id number] : 1990 34 From: Fiordaliza moctezuma MD PCP: Dr. [place] Luna MD Status :REG CLI Y DOS: Location: [place] [address] Progress Notes Date of Service: 03/24/25 Progress Note: Patient presents for triage evaluation secondary to polyhydramnios FHT: 135 Moderate variability reactive no decelerations category I tracing [place]: no regular Contractions Assessment and plan: 36 weeks severe polyhydramnios Reactive NST, reassuring maternal and status patient discharged to home to follow-up as scheduled. See problem list details for additional plan information. Charges/Coding Procedures Urinary/Genital 52xxx-59xxx: 95248-11 non-stress test Interp 03/24/25 1005 <Electronically signed by Fiordaliza sylvester MD> Date _ Fiordaliza Castellano Signature (if applicable): Date CC: Dr. [place] Luna MD; Dr. Fiordaliza Zhong MD ~ Signed [facility] Work Phone: Progrewz note Author Fiordaliza Zhong [facility] Note Date/Time March 24, 2025 11:11am [facility] [address], [address] [place] [address] OFFICE VISIT Date of Service: 03/24/25 MR#: [id number] Acct: [id number] Name: DEMETRIUS FERNANDES Rep #: [id number] : 1990 Provider: Dr. Luther Zhong MD Age/Sex: 34/F [place] [facility] [place] Status: Signed Intake Vital Signs 03/24/25 09:10 03/24/25 10:26 Height 5 ft 9 in 5 ft 9 in Weight: 345 lb 9 oz BMI 51.0 BP 132/76 H Intake Visit Reasons: 37wk ob before csection *per Furrier Designer Required: No Is patient in pain?: No [...] ea 03/07/25 03/24/25 Rx (FreeStyle Hardeep 2 [place]) lancets #200 ea 03/07/25 03/24/25 Rx Last [...] occupational status: employed and unemployed current occupation: [employer] current occupational exposures/hazards: No pets [...] 1-2 times per week duration: 30-45 minutes/day parul/uatsdin: None seatbelt use: always do you feel safe at home: Yes additional social history: - Froilan AUGUSTINE @ [facility] 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 Date Name GA/Weeks Outcome Route Bth Weight [facility]21 Timmy 41 live - full term 8#2oz Male epidur al [facility] GP Froilan Delivery Date: 04/14/21 Last [...] and Symptoms of Preeclampsia, Feeding No , Bolt Education and Family Medical Leave or Disability [...] General: cooperative, healthy appearing, comfortable and anxious HENPR Head: normal to inspection Nose: external nose [...] sylvester MD> Date _ [facility]ordaliza Zhong [facility] Signature: Date (if applicable) CC: ~ [facility] Work Phone: Reason for referral (narrative)No reason for referral information availableWWexner Medical [facility] Work Phone: Chief Complaint and [...] 6am Rh negative state in antepartum period [facility] 2024 8:56am Spider veins of both lower extremities [facility] 2024 8:56am Supervision of high-risk September 23, [...] 6am Rh negative state in antepartum period [facility] 2024 8:56am Spider veins of both lower extremities [facility] 2024 8:56am Supervision of high-risk September 23, [...] state in antepartum period J [facility] 2024 9:02am Supervision of high-risk December 16, 2024 9:02am Advanced maternal age (AMA) in January 12, 2025 9:40am Pre-existing severe obesity in mother af fecting January 12, 2025 9:40am January 12, 2025 9:40a m Rh negative state in antepartum period J [facility] 2024 9:40am Supervision of high-risk January 12, 2025 9:40am Advanced maternal age (AMA) in January 24, 2025 8:22am Pre-existing severe obesity in mother af fecting January 24, 2025 8:22am January 24, 2025 8:22 am Rh negative state in antepartum period J [facility] 2024 8:22am Supervision of high-risk January [...] Rh negative state in antepartum period J [facility] 2024 9:17am Supervision of high-risk February 07, [...] state in antepartum period J [facility] 2024 9:02am Supervision of high-risk [...] Rh negative state in antepartum period J [facility] 2024 8:22am Supervision of high-risk January 24, 2025 8:22am Abnormal glucose affecting Jan 9:17am Advanced maternal age (AMA) in February 07, 2025 9:17am Pre-existing severe obesity in mother af fecting February 07, 2025 9:17am February 07, 2025 9:17 am Rh negative state in antepartum period J [facility] 2024 9:17am Supervision of high-risk February 07, [...] m Rh negative state in antepartum period [facility] 2024 9:02am Supervision of high-risk December 16, 2024 9:02am Advanced maternal age (AMA) in January 12, 2025 9:40am Pre-existing severe obesity in mother af fecting January 12, 2025 9:40am January 12, 2025 9:40a m Rh negative state in antepartum period [facility] 2024 9:40am Supervision of high-risk January 12, 2025 9:40am Advanced maternal age (AMA) in January 24, 2025 8:22am Pre-existing severe obesity in mother af fecting January 24, 2025 8:22am January 24, 2025 8:22 am Rh negative state in antepartum period J [facility] 2024 8:22am Supervision of high-risk January 24, 2025 8:22am Abnormal glucose affecting Axel 2024 9:17am Advanced maternal age (AMA) in February 07, 2025 9:17am Pre-existing severe obesity in mother af fecting February 07, 2025 9:17am February 07, 2025 9:17 am Rh negative state in antepartum period J [facility] 2024 9:17am Supervision of high-risk February 07, [...] state in antepartum period J [facility] 2024 9:02am Supervision of high-risk December 16, 2024 9:02am Advanced maternal age (AMA) in January 12, 2025 9:40am Pre-existing severe obesity in mother af fecting January 12, 2025 9:40am January 12, 2025 9:40a m Rh negative state in antepartum period J [facility] 2024 9:40am Supervision of high-risk January 12, 2025 9:40am Advanced maternal age (AMA) in January 24, 2025 8:22am Pre-existing severe obesity in mother af fecting January 24, 2025 8:22am January 24, 2025 8:22 am Rh negative state in antepartum period J [facility] 2024 8:22am Supervision of high-risk January 24, 2025 8:22am Abnormal glucose affecting Axel 2024 9:17am Advanced maternal age (AMA) in February 07, 2025 9:17am Pre-existing severe obesity in mother af fecting February 07, 2025 9:17am February 07, 2025 9:17 am Rh negative state in antepartum period J [facility] 2024 9:17am Supervision of high-risk February 07, 2025 9:17am Abnormal glucose affecting Aug ust 2024 9:59am Advanced maternal age (AMA) in February 22, 2025 9:59am Pre-existing severe obesity in mother af fecting February 22, 2025 9:59am February 22, 2025 9: 59am Rh negative state in antepartum period A [facility] 2024 9:59am Supervision of high-risk Augus 2024 [...] Rh negative state in antepartum period A [facility] 2024 8:54am Supervision of high-risk Augus t [...] Rh negative state in antepartum period A [facility] 2024 10:00am Supervision of high-risk Augus t 2024 10:00am Breech presentation March 15, 2025 10:20am Macrosomia affecting management of mothe r, antepartum March 15, 2025 10:20am Polyhydramnios affecting Septe mb 2024 10:20am March 15, 2025 10:20am [facility] 2024 10:20am Chief Complaint Admit Date [...] state in antepartum period J [facility] 2024 9:02am Supervision of high-risk December 16, 2024 9:02am Advanced maternal age (AMA) in January 12, 2025 9:40am Pre-existing severe obesity in mother af fecting January 12, 2025 9:40am January 12, 2025 9:40a m Rh negative state in antepartum period J [facility] 2024 9:40am Supervision of high-risk January 12, 2025 9:40am Advanced maternal age (AMA) in January 24, 2025 8:22am Pre-existing severe obesity in mother af fecting January 24, 2025 8:22am January 24, 2025 8:22 am Rh negative state in antepartum period J [facility] 2024 8:22am Supervision of high-risk January 24, 2025 8:22am Abnormal glucose affecting Jan 9:17am Advanced maternal age (AMA) in February 07, 2025 9:17am Pre-existing severe obesity in mother af fecting February 07, 2025 9:17am February 07, 2025 9:17 am Rh negative state in antepartum period J [facility] 2024 9:17am Supervision of high-risk February 07, 2025 9:17am Abnormal glucose affecting Aug us2024 9:59am Advanced maternal age (AMA) in February 22, 2025 9:59am Pre-existing severe obesity in mother af fecting February 22, 2025 9:59am February 22, 2025 9: 59am Rh negative state in antepartum period A [facility] 2024 9:59am Supervision of high-risk Augus t [...] Rh negative state in antepartum period A [facility] 2024 8:54am Supervision of high-risk Augus t [...] Rh negative state in antepartum period A [facility] 2024 10:00am Supervision of high-risk Augus t [...] antepartum March 21, 2025 10:17am [facility] 10:17am Pre-existing severe obesity in mother af fecting March 21, 2025 10:17am March 21, 2025 10:17am Rh negative state in antepartum period S eptember 2024 10:17am Supervision of high-risk [facility] 2024 10:17am Chief Complaint Admit Date 22wk [...] March 15, 2025 10:20am Polyhydramnios affecting [facility] 2024 10:20am March 15, 2025 10:20am Supervision of high-risk [facility] 2024 10:20am Abnormal glucose affecting Sep [facility]2024 10:17am Advanced maternal age (AMA) in March 21, 2025 10:17am Breech presentation March 21, 2025 10:17am Macrosomia affecting management of mothe r, antepartum March 21, 2025 10:17am [facility] 10:17am Pre-existing severe obesity in mother affecting March 21, 2025 10:17am March 21, 2025 10:17am Rh negative state in antepartum period [facility] 10:17am Supervision of high-risk [facility] 2024 10:17am Abnormal glucose affecting Sep [facility]2024 10:17am Advanced maternal age (AMA) in March 24, 2025 10:17am Breech presentation March 24, 2025 10:17am Macrosomia affecting management of mothe r, antepartum March 24, 2025 10:17am Polyhydramnios affecting [facility] 2024 10:17am Pre-existing severe obesity in mother affecting March 24, 2025 10:17am March 24, 2025 10:17am Rh negative state in antepartum period S eptember 2024 10:17am Supervision of high-risk [facility] 2024 10:17am Family History No Family [...] Will No April 13 8:08pm Power of Purchasing Engineer No April 13 021 8:08pm Summary Purpose [...] Inactive Member Role Status Dates Erick Rodriguez BIT GRINDER, BIT GRINDER-C Attending Provider Active Start: November 17, 2024 End: November 17, 2024 Team Status: Inactive Member Role Status Dates Erick Rodriguez BIT GRINDER, BIT GRINDER-C Attending Provider Active Start: November 17, 2024 End: November 17, 2024 Erick Rodriguez BIT GRINDER, BIT GRINDER-C Referring Provider Active Start: November 17, 2024 [...] Inactive Member Role/Relationship Status Dates Erick Rodriguez BIT GRINDER, BIT GRINDER-C Attending Provider Active Start: November 17, 2024 End: November 17, 2024 Team Status: Inactive Member Role/Relationship Status Dates Erick Rodriguez BIT GRINDER, BIT GRINDER-C Attending Provider Active Start: November 17, 2024 End: November 17, 2024 Erick Rodriguez BIT GRINDER, BIT GRINDER-C Referring Provider Active Start: November 17, 2024 End: November 17, 2024 Team Status: Inactive Member Role/Relationship Status Dates Dr. Fiordaliza Zhong MD Attending Provider Active Start: December 16, 2024 End: December 16, 2024 Team Status: Inactive Member Role/Relationship Status Dates Erick Brooks BIT GRINDER, BIT GRINDER-C Attending Provider Active Start: January 12, 2025 [...] Inactive Member Role/Relationship Status Dates Erick Brooks BIT GRINDER, BIT GRINDER-C Attending Provider Active Start: November 17, 2024 End: November 17, 2024 Team Status: Inactive Member Role/Relationship Status Dates Erick Brooks BIT GRINDER, BIT GRINDER-C Attending Provider Active Start: November 17, 2024 End: November 17, 2024 Erick [place] BIT GRINDER, BIT GRINDER-C Referring Provider Active Start: November 17, 2024 End: November 17, 2024 Team Status: Inactive Member Role/Relationship Status Dates Dr. Fiordaliza Zhong MD Attending Provider Active Start: December 16, 2024 End: December 16, 2024 Team Status: Inactive Member Role/Relationship Status Dates Erick [place] BIT GRINDER, BIT GRINDER-C Attending Provider Active Start: January 12, 2025 End: January 12, 2025 Team Status: Inactive Member Role/Relationship Status Dates Erick [place] BIT GRINDER, BIT GRINDER-C Attending Provider Active Start: January 24, 2025 End: January 24, 2025 Team Status: Active Member Role/Relationship Status Dates Erick [place] BIT GRINDER, BIT GRINDER-C Attending Provider Active Start: January 24, 2025 [...] Status: Inactive Member Role/Relationship Status Dates Erick [place] BIT GRINDER, BIT GRINDER-C Attending Provider Active Start: November 17, 2024 End: November 17, 2024 Team Status: Inactive Member Role/Relationship Status Dates Erick [place] BIT GRINDER, BIT GRINDER-C Attending Provider Active Start: November 17, 2024 End: November 17, 2024 Erick Brooks BIT GRINDER, BIT GRINDER-C Referring Provider Active Start: November 17, 2024 End: November 17, 2024 Team Status: Inactive Member Role/Relationship Status Dates Dr. Fiordaliza Zhong MD Attending Provider Active Start: December 16, 2024 End: December 16, 2024 Team Status: Inactive Member Role/Relationship Status Dates Erick [place] BIT GRINDER, BIT GRINDER-C Attending Provider Active Start: January 12, 2025 End: January 12, 2025 Team Status: Inactive Member Role/Relationship Status Dates Erick [place] BIT GRINDER, BIT GRINDER-C Attending Provider Active Start: January 24, 2025 End: January 24, 2025 Team Status: Inactive Member Role/Relationship Status Dates Erick [place] BIT GRINDER, BIT GRINDER-C Attending Provider Active Start: January 24, 2025 End: January 24, 2025 Team Status: Active Member Role/Relationship Status Dates Erick [place] BIT GRINDER, BIT GRINDER-C Attending Provider Active Start: January 25, 2025 Erick [place] BIT GRINDER, BIT GRINDER-C Referring Provider Active Start: January 25, 2025 Dr. [place] Luna MD Primary Care Provider Acti ve Start: January 25, 2025 Team Status: Inactive Member Role/Relationship Status Dates Erick Brooks BIT GRINDER, BIT GRINDER-C Attending Provider Active Start: January 25, 2025 End: January 25, 2025 Erick [place] BIT GRINDER, BIT GRINDER-C Referring Provider Active Start: January 25, 2025 End: January 25, 2025 Dr. [place] Luna MD Primary Care Provider Acti ve Start: January 25, 2025 End: January 25, 2025 Team Status: Inactive Member Role/Relationship Status Dates Erick [place] BIT GRINDER, BIT GRINDER-C Attending Provider Active Start: January 25, 2025 End: January 25, 2025 Erick [place] BIT GRINDER, BIT GRINDER-C Referring Provider Active Start: January 25, 2025 [...] Inactive Member Role/Relationship Status Dates Erick Brooks BIT GRINDER, BIT GRINDER-C Attending Provider Active Start: November 17, 2024 End: November 17, 2024 Team Status: Inactive Member Role/Relationship Status Dates Erick Brooks BIT GRINDER, BIT GRINDER-C Attending Provider Active Start: November 17, 2024 End: November 17, 2024 Erick [place] BIT GRINDER, BIT GRINDER-C Referring Provider Active Start: November 17, 2024 End: November 17, 2024 Team Status: Inactive Member Role/Relationship Status Dates Dr. Fiordaliza Zhong MD Attending Provider Active Start: December 16, 2024 End: December 16, 2024 Team Status: Inactive Member Role/Relationship Status Dates Erick Brooks BIT GRINDER, BIT GRINDER-C Attending Provider Active Start: January 12, 2025 End: January 12, 2025 Team Status: Inactive Member Role/Relationship Status Dates Erick Brooks BIT GRINDER, BIT GRINDER-C Attending Provider Active Start: January 24, 2025 End: January 24, 2025 Team Status: Inactive Member Role/Relationship Status Dates Erick [place] BIT GRINDER, BIT GRINDER-C Attending Provider Active Start: January 25, 2025 End: January 25, 2025 Erick Brooks BIT GRINDER, BIT GRINDER-C Referring Provider Active Start: January 25, 2025 [...] Inactive Member Role/Relationship Status Dates Erick Rodriguez BIT GRINDER, BIT GRINDER-C Attending Provider Active Start: January 12, 2025 End: January 12, 2025 Team Status: Inactive Member Role/Relationship Status Dates Erick Rodriguez BIT GRINDER, BIT GRINDER-C Attending Provider Active Start: January 24, 2025 End: January 24, 2025 Team Status: Inactive Member Role/Relationship Status Dates Erick Rodriguez BIT GRINDER, BIT GRINDER-C Attending Provider Active Start: January 24, 2025 End: January 24, 2025 Team Status: Inactive Member Role/Relationship Status Dates Erick Rodriguez BIT GRINDER, BIT GRINDER-C Attending Provider Active Start: January 25, 2025 End: January 25, 2025 Erick Rodriguez BIT GRINDER, BIT GRINDER-C Referring Provider Active Start: January 25, 2025 [...] section and content) DATE CREATED AUTHOR 03/22/2025 [facility] DATE CREATED AUTHOR AUTHOR'S ORGANIZ ATION 03/26/2025 [facility] FOR RECORDS PERTAINING TO PATIENTS WHO ARE [...] BE BASED ON THE PRIMARY CLINICAL RECORDS. [employer] provides no warranty or guarantee of the accuracy or completeness of information in this document.
[2025-03-28] MEDS: Lactated Ringers 1,000 ML 999 ML IV (06:15)
[2025-03-28 06:36] LABS: Hematocrit 32.4 % (37-47); Hemoglobin 10.7 g/dL (12.0-15.0); Immature Granulocytes Count 0.050 X10^3/uL (0.0-0.0); Mean Corp Hgb Conc 33.0 g/dL (32-36); Mean Corpuscular Volume 83.3 fL (81-99); Mean Platelet Vol. 10.8 fl (6.2-12.0); NRBC Flagged by Analyzer 0 % (0-5); Platelet Count 247 K/mm3 (150-450); RBC Distribution Width CV 15.5 % (11.6-14.6); RBC Distribution Width SD 46.6 fl (35.1-43.9); Red Blood Count 3.89 M/mm3 (4.2-5.4); White Blood Count 11.8 K/mm3 (4.4-11.0)
[2025-03-28 06:58] LABS: Syphilis Antibodies Nonreactive (Nonreactive)
--- NOTE | 2025-03-28 07:16 | EX.PCM.OBRPT ---
Assessment & Plan (1) Pre-existing severe obesity in mother affecting : COMMENT: nl 1 tm hga1c. recommend weekly bpps 34 on, growth US 32 and 36. (2) Rh negative state in antepartum period: COMMENT: O-, Rhogam @ 28 wks, Given 01/24/25 (3) : QUALIFIERS: Weeks of gestation: 36 weeks Qualified Code(s): Z3A.36 - 36 weeks gestation of COMMENT: elects NIPT with gender, insufficient DNA X 2; AFP Neg. Nml anatomy. (4) Supervision of high-risk : QUALIFIERS: Trimester: second trimester Qualified Code(s): O09.92 - Supervision of high risk , unspecified, second trimester COMMENT: PRR, , MEET 04/17/25, boy Agustín Warner, [place] (5) Advanced maternal age (AMA) in : (6) Abnormal glucose affecting : COMMENT: nl 3 hr GTT (7) Polyhydramnios affecting : COMMENT: MIKE 36 at 34 weeks per MFM. QID glucose testing. twice weekly ANFS-BPP and NST. Consult with MFM ordered. deliver at 37 weeks scheduled for 03/28 @ 7:15 with (8) Macrosomia affecting management of mother, antepartum: COMMENT: EFW 3205 at 34 weeks per MFM, QID glucose testing (9) Breech presentation: COMMENT: at 34 weeks per MFM (10) delivery delivered: COMMENT: SM RLTCS 37 polyhydramnios Maternal Data Information MEET Calculator Estimated Delivery Date Method Current WG Current Estimate 04/17/25 LMP (Certain) 37w 3d Other Estimates 04/14/25 Ultrasound #1 37w 6d Final MEET Source: LMP Operative Report (OB) Procedure Details Date of Procedure: 03/28/25 Procedure Start Time: 07:48 Pre-Operative Diagnosis: Breech and Other Other Pre-Operative diagnosis: see a/p comments Post-Operative Diagnosis: Same as Pre-operative diagnosis Classification: Scheduled Type of Anesthesia: Spinal Special Medications: none Antibiotic Given: Ancef 2 grams IV x1 Drain: Roberson to straight drain Estimated Blood Loss: 900 Fluids Replaced: crystalloid Findings Description of surgery: Spinal anesthesia was placed without difficulty. Roberson catheter was placed. The patient was placed in the dorsal supine position with leftward tilt. Patient was prepped and draped in the normal sterile fashion. Pfannenstiel skin incision was made with the scalpel and carried through to the underlying layer of fascia with the scalpel. Fascia was nicked in the midline and the incision extended laterally. The rectus bellies were dissected off superiorly and inferiorly with out complication both sharply and bluntly. The peritoneum was entered digitally. The incision was stretched and a low transverse uterine incision was made with the scalpel. infant was found to be converted to vertex. patient had stated preivously she desired a csection regardless of presentation and declined scan prior to delivery. head delivered without complicaton prior to hsoulder s and the rest of the infant. delayed cord clamping employed and then the cord was clamped and cut. infant passed to nurse. The placenta was delivered spontaneously immediately following and was noted to be intact and have a three-vessel cord. The uterus was exteriorized cleared of all clots and debris, and the incision was closed in a single layer closure using #1 Monocryl. The ovaries and fallopian tubes were noted to be within normal limits. The uterus was returned to the maternal abdomen and gutters were cleared of all clots and debris. The peritoneum was closed with 3-0 Monocryl in a running fashion. Gloves were changed prior to fascial closure. Fascia was closed with 0 PDS in a running fashion. Subcutaneous tissue was copiously irrigated and the skin was closed with 3-0 Monocryl in a subcuticular fashion. Mepilex dressing was applied without complication. Patient was taken to recovery in stable condition. Surgical findings: nl uterus tubes ovaries Presentation: Vertex Amniotic Membrane Rupture Type: Artificial Amniotic Fluid Description: Clear Specimen collected: Yes Description of specimen(s) removed: placenta and baby Cord Vessel Description: 3 Vessels Delayed Cord Clamping: Yes Play Reader block engraver: Yes Cashier And Salesperson: Catracho Davison Tasks completed by mailing machine assistant: Opening & closing, Retracting and Other (assisting in delivery of the infant) Additional project administrative assistant?: No Complications Complications: No Admit VTE Documentation VTE Present on Admission: No VTE Mechan Device Prophylaxis: SCD's Procedures Urinary/Genital 52xxx-59xxx: 17470 Delivery [facility]
--- NOTE | 2025-03-28 07:19 | DCINST_ITS ---
Discharge Instructions DC O2, CPAP, BIPAP needs Home O2 Discharge instructions: No Dressing / Incision Discharge Activity: May Not Drive (for 2 weeks or while taking narcotic pain medications.), May Shower and May Take a Tub Bath (in 7 days) May shower in (days): 0 May resume sexual activity in: 4-6 weeks Weight Bearing Status: Full weight bearing Lifting Restrictions: 20 pounds Dressing / Incision Call your doctor if your incision/area has: Continuous Slow Oozing, Sudden Increased Bleeding, Increased Pain/ Swelling, Increased Redness and Foul Smelling Discharge Call your doctor if you observe: Fever of 101 or Higher and Using more than 1 pad per hour (for 2 hours) Suture Line Care: Avoid Pulling/Pushing and Avoid Pinching/Bending Cleanse incision/area with: Soap & Water and Keep Dressing Clean & Dry Follow Up Care Please Follow Up With: Fiordaliza Zhong MD When: Call [phone] to make an appointment for an incision check in 1-2 weeks. Test Results: Test results from this visit will be discussed in further detail at your follow- up appointment, if applicable. Discharge Plan Admission Admit Date/Time: 03/28/25 05:47 Attending Provider: Fiordaliza Zhong Primary Care Provider: Reji Luna Discharge Orders/Prescriptions Prescriptions: New naproxen 500 mg tablet 500 mg PO BID PRN PRN (Reason: Pain) Qty: 30 1RF oxycodone-acetaminophen [Percocet] 5-325 mg tablet 1 tab PO Q4H PRN (Reason: pain) 7 Days Qty: 20 0RF No Action PNV-DHA 27 mg iron-1 mg -300 mg capsule 1 cap PO DAILY famotidine [Pepcid] 40 mg tablet 40 mg PO BID PRN (Reason: heartburn) Qty: 30 3RF ferrous sulfate 27 mg iron tablet 27 mg PO DAILY (DME) FreeStyle Hardeep 2 [place] Misc See Rx Instructions .ROUTE .MEDSUPPLY Qty: 1 0RF Rx Instructions: As directed (DME) Advanced Gluc Meter Test Strip Strip See Rx Instructions .Route Qty: 100 5RF Rx Instructions: As directed (DME) lancets Misc See Rx Instructions .ROUTE .MEDSUPPLY Qty: 200 2RF Rx Instructions: As directed, fasting and 2 hours post meals alcohol swabs [Alcohol Wipes] Pads, Medicated 1 pad topical DAILY Qty: 100 0RF Referrals / Follow Up: Reji Luna MD [Primary Care Provider] -
[2025-03-28] MEDS: Cefazolin 1 GM/5 ML Vial 3 GM IV (07:24)
[2025-03-28] MEDS: TRANEXAMIC ACID 1,000 MG/10 ML ML 1000 MG IV (07:39)
[2025-03-28] MEDS: Oxytocin 15 Units/NS 250ml 15 UNITS/250 ML IV.SOLN 83 UNITS IV (09:00)
[2025-03-28] MEDS: Ketorolac 30 MG/ML Syringe IV ×3 (09:27→22:30)
[2025-03-28] MEDS: Lactated Ringers 1,000 ML 100 ML IV (12:10)
[2025-03-28] MEDS: Rho(D) Immune Globulin 300 MCG (1500 Unit) Syringe IV (17:52)
[2025-03-28] MEDS: 0.9% Saline Lock 10 ML Syringe IV (22:30)
[2025-03-29 00:31] VITALS: BP 135/66; PULSE 71; RESP 16; TEMP 36.2; O2SAT 97
[2025-03-29 03:50] VITALS: BP 118/55; PULSE 72; RESP 18; TEMP 36.3; O2SAT 97
[2025-03-29] MEDS: Ketorolac 30 MG/ML Syringe IV (04:47)
[2025-03-29] MEDS: 0.9% Saline Lock 10 ML Syringe IV (04:47)
[2025-03-29 05:48] LABS: Hematocrit 30.4 % (37-47); Hemoglobin 9.9 g/dL (12.0-15.0); Mean Corp Hgb Conc 32.6 g/dL (32-36); Mean Corpuscular Volume 83.5 fL (81-99); Mean Platelet Vol. 10.6 fl (6.2-12.0); Platelet Count 211 K/mm3 (150-450); RBC Distribution Width CV 15.5 % (11.6-14.6); RBC Distribution Width SD 47.1 fl (35.1-43.9); Red Blood Count 3.64 M/mm3 (4.2-5.4); White Blood Count 12.2 K/mm3 (4.4-11.0)
[2025-03-29 07:30] VITALS: BP 139/56; PULSE 76; RESP 14; TEMP 36.1; O2SAT 97
--- NOTE | 2025-03-29 08:18 | PCM.PN.OB ---
Subjective Subjective Patient doing well without complaints. Tolerating PO. Ambulating and voiding without difficulty. Feeding well. Denies chest pain, shortness of breath, calf pain/swelling, fevers, chills, lightheadedness. Objective Data Objective Data Vital Signs: Vital Signs Temp Pulse Resp BP Pulse Ox O2 Del Method 97.3 F L 72 18 118/55 L 97 Room Air 03/29/25 03:50 03/29/25 03:50 03/29/25 03:50 03/29/25 03:50 03/29/25 03:50 03/29/25 03:50 Oxygen Delivery Method Room Air Weight: 349 lb Body Mass Index (BMI) 51.5 Intake & Output: Intake and Output for Last 24 Hours 03/27/25 03/28/25 03/29/25 23:59 23:59 23:59 Intake Total 1782.33 / 1782.33 Output Total 4100 / 4100 Balance -2317.67 / -2317.67 Lab / Micro Data Attestation: I reviewed the patient's lab results. 03/29/25 05:32 Labs: Laboratory Results - last 24 hr 03/28/25 10:55: Screen NEGATIVE, Baby's Blood Type A POSITIVE, Baby's SAGE NEGATIVE 03/29/25 05:30: POC Glucose 77 03/29/25 05:32: WBC 12.2 H, RBC 3.64 L, Hgb 9.9 L, Hct 30.4 L, MCV 83.5, MCH 27.2, MCHC 32.6, RDW Std Deviation 47.1 H, RDW Coeff of Anoop 15.5 H, Plt Count 211, MPV 10.6 ROS Constitutional Constitutional: Reports systems reviewed and no addt'l complaints, except as documented; Denies anorexia or headache(s) Cardiovascular Cardiovascular: Reports systems reviewed and no addt'l complaints, except as documented; Denies dizziness, dyspnea, nausea or tachypnea Respiratory/Chest Respiratory/Chest: Reports systems reviewed and no addt'l complaints, except as documented; Denies cough, dyspnea, shortness of breath at rest or tachypnea Gastrointestinal Gastrointestinal: Reports systems reviewed and no addt'l complaints, except as documented; Denies abdominal pain, constipation or nausea Genitourinary Genitourinary: Reports systems reviewed and no addt'l complaints, except as documented; Denies burning urination, difficulty urinating, dysuria, urinary frequency or urinary incontinence Musculoskeletal Musculoskeletal: Reports systems reviewed and no addt'l complaints, except as documented Integumentary Integumentary: Reports systems reviewed and no addt'l complaints, except as documented Neurologic Neurologic: Reports systems reviewed and no addt'l complaints, except as documented; Denies abnormal speech, dizziness or headache(s) Psychiatric Psychiatric: Reports systems reviewed and no addt'l complaints, except as documented Endocrine Endocrinology: Reports systems reviewed and no addt'l complaints, except as documented Hematologic/Lymphatic Hematologic/Lymphatic: Reports systems reviewed and no addt'l complaints, except as documented Physical Exam Const alert, oriented x3 and no apparent distress Neck full ROM Resp normal respiratory effort, normal air movement and no retractions Effort and Inspection: able to speak in complete sentences and symmetric chest movement GI soft to palpation Bladder / Kidney Exam: bladder normal to palpation Uterus Palpation: uterus fundus firm Extremity normal to inspection and full ROM Psych mental status grossly normal, thought process normal and cooperative Assessment & Plan (1) delivery delivered: COMMENT: SM RLTCS 37 polyhydramnios PLAN: s/p LTCS PPD # 1 1. routine post care 2. breast feeding- support given 3. rh positive 4. rubella immune (2) Breech presentation: COMMENT: at 34 weeks per M (3) Macrosomia affecting management of mother, antepartum: COMMENT: EFW 3205 at 34 weeks per [facility], QID glucose testing (4) Polyhydramnios affecting : COMMENT: MIKE 36 at 34 weeks per M. QID glucose testing. twice weekly ANFS-BPP and NST. Consult with [facility] ordered. deliver at 37 weeks scheduled for 03/28 @ 7:15 with (5) Abnormal glucose affecting : COMMENT: nl 3 hr GTT (6) Advanced maternal age (AMA) in : (7) Supervision of high-risk : QUALIFIERS: Trimester: second trimester Qualified Code(s): O09.92 - Supervision of high risk , unspecified, second trimester COMMENT: PRR, , MEET 04/17/25, jennifer Warner, Froil[place] (8) : QUALIFIERS: Weeks of gestation: 36 weeks Qualified Code(s): Z3A.36 - 36 weeks gestation of COMMENT: elects NIPT with gender, insufficient DNA X 2; AFP Neg. Nml anatomy. (9) Rh negative state in antepartum period: COMMENT: O-, Rhogam @ 28 wks, Given 01/24/25 (10) Pre-existing severe obesity in mother affecting : COMMENT: nl 1 tm hga1c. recommend weekly bpps 34 on, growth US 32 and 36. Charges/Coding Multi Select Codes Urinary/Genital Urinary/Genital CPT Codes: No Charge
[2025-03-29] MEDS: Senna/Docusate Sodium 1 Tablet PO (10:29)
[2025-03-29 14:30] VITALS: BP 127/75; PULSE 76; RESP 14; TEMP 36.3; O2SAT 97
[2025-03-29 20:38] VITALS: BP 123/72; PULSE 77; RESP 16; O2SAT 97
[2025-03-30 02:30] VITALS: BP 117/60; PULSE 77; RESP 16; TEMP 36.6; O2SAT 96
--- NOTE | 2025-03-30 07:58 | PCM.PN.OB ---
Subjective Subjective Patient doing well without complaints. Tolerating PO. Ambulating and voiding without difficulty. feeding well. Denies chest pain, shortness of breath, calf pain/swelling, fevers, chills, lightheadedness. Objective Data Objective Data Vital Signs: Vital Signs Temp Pulse Resp BP Pulse Ox O2 Del Method 97.9 F 77 16 117/60 96 Room Air 03/30/25 02:30 03/30/25 02:30 03/30/25 02:30 03/30/25 02:30 03/30/25 02:30 03/30/25 02:30 Oxygen Delivery Method Room Air Weight: 349 lb Body Mass Index (BMI) 51.5 Intake & Output: Intake and Output for Last 24 Hours 03/28/25 03/29/25 03/30/25 23:59 23:59 23:59 Intake Total 1782.33 / 1782.33 Output Total 4100 / 4100 Balance -2317.67 / -2317.67 Lab / Micro Data 03/29/25 05:32 ROS Constitutional Constitutional: Reports systems reviewed and no addt'l complaints, except as documented Cardiovascular Cardiovascular: Reports systems reviewed and no addt'l complaints, except as documented Respiratory/Chest Respiratory/Chest: Reports systems reviewed and no addt'l complaints, except as documented Gastrointestinal Gastrointestinal: Reports systems reviewed and no addt'l complaints, except as documented Physical Exam Const alert, oriented x3 and no apparent distress HEENT Head and Scalp: atraumatic Resp normal respiratory effort GI soft to palpation and non-tender Inspection: incision intact, healing well and drainage (none) Bimanual Exam - Vag & Uterus: uterus non-tender Uterus Palpation: uterus fundus firm (below Umbilicus) Assessment & Plan (1) delivery delivered: COMMENT: RLTCS 37 polyhydramnios PLAN: Plan s/p LTCS PPD # 2 1. routine post care 2. breast feeding- support given 3. rh positive 4. rubella immune
[2025-03-30 09:00] VITALS: BP 129/58; PULSE 75; RESP 16; TEMP 36.6; O2SAT 99
[2025-03-30] MEDS: Senna/Docusate Sodium 1 Tablet PO (09:28)
[2025-03-30 13:29] VITALS: BP 124/62; PULSE 75; RESP 18; TEMP 36.6; O2SAT 99
--- NOTE | 2025-03-30 13:33 | NURSING ---
03/29 student charting reviewed
[2025-03-30 17:29] VITALS: BP 127/67; PULSE 73; RESP 18; TEMP 36.1; O2SAT 98
--- NOTE | 2025-04-05 14:04 | NURSING ---
f/up phone call attempted, no ans, LVM
== END 2025-03-30 17:41 | disposition home or self-care (01) | DRG 788 ==
PROVIDERS: Admitting Provider Obstetrics & Gynecology; PCP Family Medicine; Visit Provider Obstetrics & Gynecology
PROC: 10D00Z1 Extraction of Products of Conception, Low, Open Approach (ICD-10-PCS; CPT 59514; principal; 2025-03-28 07:00)
DX: O34.211 Maternal care for low transverse scar from previous cesarean delivery (principal); O40.3XX0 Polyhydramnios, third trimester, not applicable or unspecified; E66.01 Morbid (severe) obesity due to excess calories; O36.63X0 Maternal care for excessive fetal growth, third trimester, not applicable or unspecified; O32.1XX0 Maternal care for breech presentation, not applicable or unspecified; O99.214 Obesity complicating childbirth; Z37.0 Single live birth; Z3A.36 36 weeks gestation of pregnancy; Z87.891 Personal history of nicotine dependence
CPT/HCPCS: 59025; 59050; 82962; 85025; 85027; 85461; 86780; 86850; 86900; 86901; 90384; 99221; A4216; G0378; J2405; J2790; J2791

== ENCOUNTER 2025-04-07 20:43 | Observation (INO) | payer OTHER, SELFPAY ==
[2025-04-07] VITALS (11 sets, daily range): BP systolic 120–154; BP diastolic 59–85; PULSE 39–51; RESP 12–20; TEMP 36.3–37; O2SAT 98–100; BMI 50.0; BMI 49.8
--- NOTE | 2025-04-07 16:37 | CT_ITS ---
PROCEDURE: ABDOMEN/PELVIS W IV CONT ONLY 04/07/2025 REASON FOR EXAM: RULE OUT ABSCESS TECHNIQUE: Procedure Code: [id number] Modality: CT Procedure: ABDOMEN/PELVIS W IV CONT ONLY Coronal and Sagittal reconstruction series were provided. CONTRAST: Isovue 300 VOLUME: 100 mL One or more dose reduction techniques were used (e.g., Automated exposure control, adjustment of the mA and/or kV according to patient size, use of iterative reconstruction technique. RADIATION DOSE SUMMARY: CTDlvol: 33 mGy DLP: 2262 mGycm COMPARISON: None FINDINGS: Lung bases: Bibasilar atelectasis more prominent within right lung base. Liver: Hepatomegaly measuring 24 cm. There are mild intrahepatic biliary dilatation. Gallbladder: Gallbladder is distended with sludge. There is small amount of pericholecystic fluid visualized. Spleen: Borderline enlarged spleen measuring 15 cm. Pancreas: Normal size without evidence of mass surrounding inflammation or ductal dilation. Adrenals: Unremarkable Kidneys: Normal renal sizes. No hydronephrosis. Bladder: Bladder distended with urine. Reproductive Organs: Enlarged globular and edematous uterus. Bowel: Moderate stool burden. Appendix: The appendix is not identified. There is no inflammatory process identified in the right lower quadrant to suggest appendicitis. Lymph nodes: Scattered mesenteric lymph nodes. Vasculature: Unremarkable. Peritoneum / Retroperitoneum: Unremarkable Bones and muscles: There is extensive soft tissue thickening and induration along bilateral lateral abdominal wall (series 2, image 62). There is marked edematous changes with soft tissue thickening around periumbilical region measuring 5 x 6 cm with surrounding inflammatory changes additionally there is 4 x 2.4 cm soft tissue thickening along anterior lower abdominal musculature with small foci of air (series 602, image 91) CT/Abdomen/Pelvis W IV Cont ONLY IMPRESSION: There is extensive soft tissue thickening and induration along bilateral latera l abdominal wall additionally there is marked edematous changes with soft tissue thickening around periumbilical region kristopher ing over 6 cm with inflammatory changes extending into anterior abdominal wall musculature with small foci of air. Findings are concerning for underlying infectious/inflammatory process with phlegmonous changes and developing abscess in this location. Hepatosplenomegaly with mild intrahepatic dilatation. Additionally there is sm all amount of pericholecystic fluid adjacent to sludge filled gallbladder. Ultrasound abdomen is recommended for better charac terization. Enlarged globular and edematous uterus findings likely represent post course. Continued attention on follow-up imaging is recommended. Reading Location: [facility]
--- NOTE | 2025-04-07 18:10 | OB.TRI.NOTE ---
HPI - General HPI Narrative DEMETRIUS FERNANDES, is a 34 F who presents to L&D 2 weeks post op section with redness around her section wound. A culture was obtained in the office of a superficial opening. There was noted to some mild erythema around the pannus and some firmness superior to the incision. While in the office her blood pressure was noted to be 150/90. She denies headaches or visual changes but complains of severe swelling in legs associated with numbness. She was sent to L&D for a CT and rule out post pre-e. [facility] Medical History (Updated 04/07/25 @ 18:[address] Aye Dey, DO) Care and examination of lactating mother Polyhydramnios macrosomia Gestational diabetes Asthma Seasonal allergies Tilted uterus Abnormal Pap smear of cervix Home Medications ?Medication ?Instructions ?Recorded ?Last Taken ?Type multivitamin no.47-iron fum 27 1 cap PO DAILY 08/29/20 04/07/25 08:00 History mg-folate no.1 1 mg-dha 300 mg 1 cap capsule (PNV-DHA) blood sugar diagnostic (Advanced #100 ea 03/07/25 Unknown Rx Glucose Meter Test Strips) flash glucose scanning reader #1 ea 03/07/25 Unknown Rx (FreeStyle Hardeep 2 [place]) lancets #200 ea 03/07/25 Unknown Rx naproxen 500 mg tablet 500 mg PO BID PRN PRN Pain #30 tabs 03/28/25 04/07/25 14:00 Rx 500 mg acetaminophen 500 mg capsule 1,000 mg PO Q6H PRN pain 04/07/25 04/07/25 14:00 History 1,000 mg amoxicillin 875 mg-potassium 1 tab PO Q12H #20 tabs 04/07/25 Unknown Rx clavulanate 125 mg tablet Allergy/AdvReac Type Severity Reaction Status Date / Time No Known Allergies Allergy Verified 04/07/25 17:36 Family History Grandfather Diabetes Paternal Type 2 Uncle AA (aortic aneurysm) Brain- Maternal Grandmother AA (aortic aneurysm) Paternal Surgical History History of elective History of tonsillectomy Social History (Updated 03/31/25 @ 15:45 by MARY JANE Elkins) adopted: No household members: spouse and children housing: house number of children: 2 current occupational status: employed current occupation: [employer] current occupational exposures/hazards: No pets and animals: Yes (2) pets and animals: dog(s) and fish history of recent travel: No sexually active: Yes Smoking Status: Former smoker how long ago did patient quit smokin years ago second hand exposure: No alcohol intake: current alcohol intake frequency: holidays/special occasions only details: not while substance use type: does not use well-balanced diet: about half the time caffeine: Yes Type: coffee Number of servings: 1 eating out: 1-3 times/week during the past year weight has: increased > 10 lbs what type of physical activity do you participate in: walking frequency: 1-2 times per week duration: 30-45 minutes/day parul/sabianist: None seatbelt use: always do you feel safe at home: Yes additional social history: - Froilan GUARDAD[employer] @ [employer] History 3 Elective abortions 1 Hx Para 2 Spontaneous abortions Hx # Term Pregnancies Ectopic pregnancies Hx # Pregnancies Multiple births # of living children 2 Past Pregnancies Del. Date Name GA/Weeks Outcome Route Bth Weight Infant Gen Labor Lgth Anesthesia Del Locatn Provider FOB 04/14/21 Timmy 41 live - full term 8#2oz Male epidural [facility] Froilan 03/28/25 Agustín 37 live - full term 8lbs 1oz Male spinal [facility] Froilan Delivery Date: 04/14/21 Last Updated by: Simi Zarate 2nd degree laceration Delivery Date: 03/28/25 Last Updated by: Torie Huertas RN [id number] 37 poly ROS Constitutional Constitutional: Reports systems reviewed and no addt'l complaints, except as documented Gastrointestinal Gastrointestinal: Denies bloating, constipation, cramping, diarrhea, nausea or vomiting Genitourinary Genitourinary: Reports other Details: Denies vaginal odor, vaginal bleeding, or vaginal discharge ; Denies difficulty urinating or flank pain Physical Exam Const alert, oriented x3 and no apparent distress HEENT normocephalic Resp normal respiratory effort and normal air movement GI GI Narrative: incision is erythematous with some superficial opening and oozing. no foul odor. mild firmness above the incision and some dependent edema present on the panus. no CVA tenderness Extremity General Extremity: edema bilateral (trace ) lower extremity Details: moderate Assessment & Plan (1) Postoperative wound breakdown: (2) Lower extremity edema: (3) hypertension: (4) delivery delivered: COMMENT: RLTCS 37 polyhydramnios PLAN: Plan plan to order a CT with IV contrast to rule out abscess if no abscess will order augment to take outpatient, unless requires inpatient observation for pre-e. at this time labs are pending but bp on L&D is normal. will try lasix for edema Charges/Coding Multi Select Codes Visit Charges Office Visit/Consults: 35081 OV L3 Est 20min
[2025-04-07 18:30] LABS: Hematocrit 31.8 % (37-47); Hemoglobin 10.4 g/dL (12.0-15.0); Immature Granulocytes Count 0.040 X10^3/uL (0.0-0.0); Mean Corp Hgb Conc 32.7 g/dL (32-36); Mean Corpuscular Volume 83.5 fL (81-99); Mean Platelet Vol. 10.3 fl (6.2-12.0); NRBC Flagged by Analyzer 0 % (0-5); Platelet Count 333 K/mm3 (150-450); RBC Distribution Width CV 14.6 % (11.6-14.6); RBC Distribution Width SD 44.5 fl (35.1-43.9); Red Blood Count 3.81 M/mm3 (4.2-5.4); White Blood Count 10.2 K/mm3 (4.4-11.0)
[2025-04-07 18:31] LABS: LDH 174 U/L (84-246)
[2025-04-07 18:45] LABS: AST(SGOT) 21 U/L (<=31); Alanine Aminotransfer ALT/SGPT 32 U/L (<=34); Estimated Creatinine Clearance 174.16 ml/min (50-250); Uric Acid 5.6 mg/dL (2.6-6.0)
--- NOTE | 2025-04-07 19:41 | EKG12_ITS ---
Test Reason : JENNIFER Blood Pressure : */* mmHG Vent. Rate : 40 BPM Atrial Rate : 40 BPM P-R Int : 160 ms QRS Dur : 92 ms QT Int : 480 ms P-R-T Axes : 54 69 48 degrees QTcB Int : 391 ms Critical Test Result: Low HR Marked sinus bradycardia Abnormal ECG No previous ECGs available Confirmed by PATRICIA MEDINA, GRUPO ([id number]), website/blog editor ABDULLAHI LYNN ([id number]) on 04/08/2025 11:03:49 AM Referred By: Ebonie Perez Confirmed By: GRUPO GOMEZ MD
--- NOTE | 2025-04-07 20:06 | CON.PCM.HO_ITS ---
Assessment & Plan Assessment/Plan (1) Sinus bradycardia: PLAN: Plan # Sinus bradycardia -Patient with previous heart rates in the 50s to 70s -She is presently asymptomatic -EKG demonstrates sinus bradycardia, heart rate of 40, QTc 391, consistent P intervals -Patient be moved to PCU for telemetry -Awaiting BMP, magnesium, TSH -Glucose checked at bedside and was 71 -Will order echocardiogram for the a.m. # Bilateral lower extremity edema -Unclear etiology - Labs ordered -proBNP ordered -Order chest x-ray -Patient given a dose of p.o. Lasix in OB -No respiratory complaints patient saturating well on room air, will hold off on further empiric Lasix pending further workup and information as above -Monitor daily weights and I's and O's # Abnormal CT scan -CT queried about a splenomegaly with mild intrahepatic dilation with small amount of Willian cholecystic fluid adjacent to sludge filled gallbladder -Noted for quadrant pain -OB did order right upper quadrant ultrasound -Liver function tests within normal limits # Postoperative wound infection -CT read ?There is extensive soft tissue thickening and induration along bilateral lateral abdominal wall additionally there is marked edematous changes with soft tissue thickening around periumbilical region spanning over 6 cm with inflammatory changes extending into anterior abdominal wall musculature with small foci of air. Findings are concerning for underlying infectious/inflammatory process with phlegmonous changes and developing abscess in this location.? - OB primary and managing # -Patient 2 weeks -OB primary #Morbid obesity -BMI documented as 50 kg/m? at time of admission -Complicates treatment, prognosis, outcomes -Recommend weight loss and lifestyle changes #DVT ppx: SCDs Ebonie Perez MD Time spent in the patient's overall evaluation, decision-making process, review of diagnostic data, adjustment of management, discussion with other providers, nursing and ancillary staff involved in patient's care documentation, 55 Minutes HPI Consult Data Date of Consult: 04/07/25 HPI Narrative Reason for Consultation: Bradycardia HPI Narrative: DEMETRIUS FERNANDES, is a 34-year-old female 2 weeks postop from section presented to [facility] L&D 04/07/2025 due to some redness around her section wound. She was seen in the office and it was noted that there was some mild erythema around the pannus and some firmness so she was sent to L&D for a CT which showed soft tissue thickening and induration bilaterally along the abdominal wall with edematous changes and soft tissue thickening around periumbilical region spanning over 6 cm with inflammatory changes with concern for underlying infectious or inflammatory etiology. Patient while in L&D was found to have a heart rate of high 30s to low 40s so hospitalist contacted to see patient in consultation. Patient evaluated at bedside in L&D. She reports that since her she has had some swelling in her lower extremities that goes up to her lower abdomen with no chest pain or shortness of breath. She denies any lightheadedness or other current complaints and blood pressure has maintained in the 120s to 130s despite her heart rate. No other new or acute complaints [facility] Medical History (Updated 04/07/25 @ 21:[address] Ebonie Perez MD) Abnormal Pap smear of cervix Asthma Care and examination of lactating mother Gestational diabetes macrosomia Polyhydramnios Seasonal allergies Tilted uterus Home Medications ?Medication ?Instructions ?Recorded ?Last Taken ?Type multivitamin no.47-iron fum 27 1 cap PO DAILY pregnanc y 08/29/20 04/07/25 08:00 History mg-folate no.1 1 mg-dha 300 mg 1 cap capsule (PNV-DHA) blood sugar diagnostic (Advanced #100 ea 03/07/25 Unkn own Rx Glucose Meter Test Strips) flash glucose scanning reader #1 ea 03/07/25 Unknown R x (FreeStyle Hardeep 2 [place]) lancets #200 ea 03/07/25 Unknown Rx naproxen 500 mg tablet 500 mg PO BID PRN PRN Pain # 30 tabs 03/28/25 04/07/25 14:00 Rx 500 mg acetaminophen 500 mg capsule 1,000 mg PO Q6H PRN pain 04/07/25 04/07/25 14:00 History 1,000 mg amoxicillin 875 mg-potassium 1 tab PO Q12H #20 tabs Unknown Rx clavulanate 125 mg tablet Allergy/AdvReac Type Severity Reaction Status Date / Time No Known Allergies Allergy Verified 04/07/25 17:36 Family History Grandfather Diabetes Paternal Type 2 Uncle AA (aortic aneurysm) Brain- Maternal Grandmother AA (aortic aneurysm) Paternal Surgical History History of elective History of tonsillectomy Social History (Updated 03/31/25 @ 15:45 by MARY JANE Elkins) adopted: No household members: spouse and children housing: house number of children: 2 current occupational status: employed current occupation: [employer] current occupational exposures/hazards: No pets and animals: Yes (2) pets and animals: dog(s) and fish history of recent travel: No sexually active: Yes Smoking Status: Former smoker how long ago did patient quit smokin years ago second hand exposure: No alcohol intake: current alcohol intake frequency: holidays/special occasions only details: not while substance use type: does not use well-balanced diet: about half the time caffeine: Yes Type: coffee Number of servings: 1 eating out: 1-3 times/week during the past year weight has: increased > 10 lbs what type of physical activity do you participate in: walking frequency: 1-2 times per week duration: 30-45 minutes/day parul/buddhist: None seatbelt use: always do you feel safe at home: Yes additional social history: - Froilan AUGUSTINE @ [facility] ROS ROS Narrative General: Denies fever/chills HENT: Denies headache, denies stuffy nose, denies sore throat EYES: Denies changes in vision Resp: Slight dry cough, denies shortness of breath Cardiac: Denies chest pain GI: Has some tenderness when palpating along lower abdomen but none if not directly pushing on the area, denies changes in bowel, denies nausea/vomiting : Denies changes in urination Extremity: Swelling in lower extremities as above MSK: Denies weakness Neuro: Denies any numbness/tingling Heme: Denies any bleeding or bruising Skin: Denies rashes Psychiatric: No complaints voiced Physical Exam Narrative General: Alert, oriented, no apparent distress HEENT: Atraumatic, normocephalic Eyes: Anicteric, normal conjunctiva, extraocular movements grossly intact Neck: Supple Respiratory: Clear to auscultation bilaterally, normal respiratory effort Cardiovascular: Sinus bradycardia GI: Soft, edema up to lower abdomen Extremities: Edema up to lower abdomen Musculoskeletal: Moving all extremities Neuro: No overt focal neurological deficits Skin: No rashes appreciated Psych: Cooperative Lab / Micro Data 04/07/25 18:00 04/07/25 20:00 Labs: Laboratory Results - last 24 hr 04/07/25 17:10: WBC Cancelled, Corrected WBC Cancelled, RBC Cancelled, Hgb Cancelled, Hct Cancelled, MCV Cancelled, MCH Cancelled, MCHC Cancelled, RDW Std Deviation Cancelled, RDW Coeff of Anoop Cancelled, Plt Count Cancelled, MPV Cancelled, Diff Path Review Cancelled, Creatinine 0.72, Estim Creat Clear Calc 174.16, Est GFR (MDRD) Non-Af 111, Uric Acid 5.6, AST 21, ALT 32, Lactate Dehydrogenase 174 04/07/25 18:00: WBC 10.2, RBC 3.81 L, Hgb 10.4 L, Hct 31.8 L, MCV 83.5, MCH 27.3, MCHC 32.7, RDW Std Deviation 44.5 H, RDW Coeff of Anoop 14.6, Plt Count 333, MPV 10.3, Immature Gran % (Auto) 0.400, Neut % (Auto) 62.8, Lymph % (Auto) 25.7, Hart % (Auto) 6.9, Eos % (Auto) 3.6, Baso % (Auto) 0.6, Absolute Neuts (auto) 6.4, Absolute Lymphs (auto) 2.61, Nucleated RBC % 0 Imaging Radiology Impression Abdomen/Pelvis CT 04/07/25 16:37 IMPRESSION: There is extensive soft tissue thickening and induration along bilateral lateral abdominal wall additionally there is marked edematous changes with soft tissue thickening around periumbilical region spanning over 6 cm with inflammatory changes extending into anterior abdominal wall musculature with small foci of air. Findings are concerning for underlying infectious/inflammatory process with phlegmonous changes and developing abscess in this location. Hepatosplenomegaly with mild intrahepatic dilatation. Additionally there is small amount of pericholecystic fluid adjacent to sludge filled gallbladder. Ultrasound abdomen is recommended for better characterization. Enlarged globular and edematous uterus findings likely represent post course. Continued attention on follow-up imaging is recommended. Reading Location: [id number] Charges/Coding Visit Charges Office Visits / Consults: 41941 OV L5 Est 40min
--- NOTE | 2025-04-07 20:11 | PCM.HP.BLA ---
History and Physical Date of Admission: 04/07/25 HPI - General HPI Narrative DEMETRIUS FERNANDES, is a 34 F who presents to L&D 2 weeks post op section with redness around her section wound. A culture was obtained in the office of a superficial opening. There was noted to some mild erythema around the pannus and some firmness superior to the incision. While in the office her blood pressure was noted to be 150/90. She denies headaches or visual changes but complains of severe swelling in legs associated with numbness. She was sent to L&D for a CT and rule out post pre-e. [facility] Medical History (Updated 04/07/25 @ 18:[address] Aye Dey, DO) Care and examination of lactating mother Polyhydramnios macrosomia Gestational diabetes Asthma Seasonal allergies Tilted uterus Abnormal Pap smear of cervix Home Medications ?Medication ?Instructions ?Recorded ?Last Taken ?Type multivitamin no.47-iron fum 27 1 cap PO DAILY 08/29/20 04/07/25 08:00 History mg-folate no.1 1 mg-dha 300 mg 1 cap capsule (PNV-DHA) blood sugar diagnostic (Advanced #100 ea 03/07/25 Unknown Rx Glucose Meter Test Strips) flash glucose scanning reader #1 ea 03/07/25 Unknown Rx (FreeStyle Hardeep 2 [place]) lancets #200 ea 03/07/25 Unknown Rx naproxen 500 mg tablet 500 mg PO BID PRN PRN Pain #30 tabs 03/28/25 04/07/25 14:00 Rx 500 mg acetaminophen 500 mg capsule 1,000 mg PO Q6H PRN pain 04/07/25 04/07/25 14:00 History 1,000 mg amoxicillin 875 mg-potassium 1 tab PO Q12H #20 tabs 04/07/25 Unknown Rx clavulanate 125 mg tablet Allergy/AdvReac Type Severity Reaction Status Date / Time No Known Allergies Allergy Verified 04/07/25 17:36 Family History Grandfather Diabetes Paternal Type 2 Uncle AA (aortic aneurysm) Brain- Maternal Grandmother AA (aortic aneurysm) Paternal Surgical History History of elective History of tonsillectomy Social History (Updated 03/31/25 @ 15:45 by MARY JANE Elkins) adopted: No household members: spouse and children housing: house number of children: 2 current occupational status: employed current occupation: [employer] current occupational exposures/hazards: No pets and animals: Yes (2) pets and animals: dog(s) and fish history of recent travel: No sexually active: Yes Smoking Status: Former smoker how long ago did patient quit smokin years ago second hand exposure: No alcohol intake: current alcohol intake frequency: holidays/special occasions only details: not while substance use type: does not use well-balanced diet: about half the time caffeine: Yes Type: coffee Number of servings: 1 eating out: 1-3 times/week during the past year weight has: increased > 10 lbs what type of physical activity do you participate in: walking frequency: 1-2 times per week duration: 30-45 minutes/day parul/methodist: None seatbelt use: always do you feel safe at home: Yes additional social history: - Froilan GUARDADON @ [facility] History 3 Elective abortions 1 Hx Para 2 Spontaneous abortions Hx # Term Pregnancies Ectopic pregnancies Hx # Pregnancies Multiple births # of living children 2 Past Pregnancies Del. Date Name GA/Weeks Outcome Route Bth Weight Infant Gen Labor Lgth Anesthesia Del [facility] Provider FOB 04/14/21 [place] 41 live - full term 8#2oz Male epidural [facility] 03/28/25 [place] 37 live - full term 8lbs 1oz Male spinal [facility] Froilan Delivery Date: 04/14/21 Last Updated by: Simi Zarate 2nd degree laceration Delivery Date: 03/28/25 Last Updated by: Torie Huertas RN [facility] 37 poly ROS Constitutional Constitutional: Reports systems reviewed and no addt'l complaints, except as documented Gastrointestinal Gastrointestinal: Denies bloating, constipation, cramping, diarrhea, nausea or vomiting Genitourinary Genitourinary: Reports other Details: Denies vaginal odor, vaginal bleeding, or vaginal discharge ; Denies difficulty urinating or flank pain Physical Exam Const alert, oriented x3 and no apparent distress HEENT normocephalic Resp normal respiratory effort and normal air movement GI GI Narrative: incision is erythematous with some superficial opening and oozing. no foul odor. mild firmness above the incision and some dependent edema present on the panus. no CVA tenderness Extremity General Extremity: edema bilateral (trace ) lower extremity Details: moderate Assessment & Plan (1) Postoperative wound infection- appears as a phlegmon and not abscess: There is extensive soft tissue thickening and induration along bilateral lateral abdominal wall additionally there is marked edematous changes with soft tissue thickening around periumbilical region spanning over 6 cm with inflammatory changes extending into anterior abdominal wall musculature with small foci of air. Findings are concerning for underlying infectious/inflammatory process with phlegmonous changes and developing abscess in this location. Hepatosplenomegaly with mild intrahepatic dilatation. Additionally there is small amount of pericholecystic fluid adjacent to sludge filled gallbladder. Ultrasound abdomen is recommended for better characterization. Enlarged globular and edematous uterus findings likely represent post course. Continued attention on follow-up imaging is recommended. (2) Lower extremity edema (3) hypertension- resolved with bigger cuff (4) delivery delivered: COMMENT: RLTCS 37 polyhydramnios (5) Marked bradycardia- consult to Dr. Perez recommends admission to PCU for tele with echo in am. EKG shows only sinus kaz. PLAN: Plan star zosyn IV for abdominal wall phlegmon ultrasound of liver tomorrow cardiac monitoring on PCU with echo tomorrow per Dr Richter.
--- NOTE | 2025-04-07 20:12 | NURSING ---
1949 - dr pozo (hospitalist [facility] adf consultant) called this RN for updates and orders. this RN reviewed labs that were completed and most recent vital signs. pt HR running anywhere from 37-45, on average consistently. dr pozo states plan of care is to obtain EKG stat, stat labs, and a bedside glucose level. this RN to call resp to get EKG as soon as possible. 1999 - dr pozo in room to discuss plan of care with pt. verbal order to discontinue serial BPs at this time since BPs have been stable. 2009 - resp at bedside to perform EKG. dr pozo out of room. this RN informed dr pozo of glucose level of 71. 2014 - EKG results given to dr pozo with marked sinus bradycardia. 2019 - decision made for pt to be transferred to PCU room 107. warehouser made aware.
--- NOTE | 2025-04-07 20:36 | NURSING ---
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 pt to be transferred in approx 10 min to room 107. no further needs noted at this time.
[2025-04-07 20:52] LABS: Anion Gap 10 (5-15); BUN 20 mg/dL (4-19); BUN/Creat Ratio 28.3 RATIO (10-20); Calcium,Total 8.4 mg/dL (7.6-11.0); Carbon Dioxide 23.2 mmol/L (21.0-32.0); Chloride 107 mmol/L (98-108); Estimated Creatinine Clearance 176.61 ml/min (50-250); Glucose 81 mg/dL (70-99); Magnesium 2.0 mg/dL (1.5-2.2); Potassium 4.2 mmol/L (3.3-5.1)
--- NOTE | 2025-04-07 21:01 | PCM.HOSP.N ---
Hospitalist Note Labs thus far fairly benign with normal mag, TSH, electrolytes. Discussed with Dr. Zelaya and went over case and agreed with echo in the a.m. If echo okay it is recommended to ambulate patient, if heart rate goes up appropriately and she remains asymptomatic can likely be discharged however if patient is ambulated and heart rate does not rise appropriately is recommended that consult be placed to Dr. Peralta tomorrow
--- NOTE | 2025-04-07 21:11 | NURSING ---
2100- this RN escorted pt to PCU room 107. rebecca RN to take over care. michelle BETTS in room.
--- OUTSIDE RECORDS SUMMARY | 2025-04-07 21:24 | XMS RPT_ITS | CCD ---
Author Organization [facility] CliniSyid Care Team Providers Care [employer] Supervisor Name Role Phone Greg Rich CNM Attending Provider [phone] Greg Rich CNM Referring Provider [phone] Dr. Aye Dey DO Attending Provider Dr. Aye Dey DO Referring Provider [place] CARDIAC SPECIALIST-C, Erick Attending Provider [phone] [place] CARDIAC SPECIALIST-C, Erick Referring Provider [phone] Dr. Fiordaliza Zhong MD Attending Provider Dr. Delmar Luna MD Primary Care Provider Dr. Aye Dey DO Attending Provider Dr. Delmar Luna MD Referring Provider [phone] Dr. Aye Dey DO Attending Provider Greg Rich CNM Attending Provider [phone] Dr. Aye Dey DO Referring Provider Dr. Aye Dye DO Other Provider [phone] Dr. Fiordaliza Zhong MD Referring Provider [phone] Dr. Fiordaliza Zhong MD Other Provider [phone] Brooks CARDIAC SPECIALIST-C, Erick Attending Provider [place] CARDIAC SPECIALIST-C, Erick Referring Provider REFERRED, SELF Referring Unavailable AYE RUVALCABA Attending Unavailable DELMAR LUNA Primary Care Unavailabl e RANNEY, CHRISTOPHER B Primary Care Unavailabl FIORDALIZA Christie Referring Unavailabl e LUCY ALVES Attending Unavailable [facility] Primary Care Unavailabl e FRANKY BADILOL Attending Unavailable REFERRED, SELF Referring Unavailable AYE RUVALCABA Attending Unavailable [place], [facility] B Primary Care Unavailabl e REFERRED, SELF Referring Unavailable GREG RICH Referring Unavailable RANOPHIEM, CHRISTOPHER B Primary Care Unavailabl e FRANKY BADILLO Attending Unavailable GREG RICH S Referring Unavailable FRANKY BADILLO Attending Unavailable [place], [facility] B Primary Care Unavailsammi e COSTA CERRATO Attending Unavailable NO PRIMARY CARE, Primary Care Unavailable ERICK RODRIGUEZ S Referring Unavailable GREG RICH Referring Unavailable [place] C[place] Attending Unavailable NO PRIMARY CARE, Primary Care Unavailable Farheen MEDINA, Dr. Mancera Attending Physician Brooks CARDIAC SPECIALIST-CErick Attending Physician [phone] Cheryl MEDINA, Dr. Mendoza Primary Care Physicia n Sola Mcdowell DO, Dr. Griffiths Attending Physician Greg Rich CNM Attending Physician [phone] Dr. Aye Dey DO Nurse Practitioner Farheen MEDINA, Dr. Mancera Nurse Practitioner Farheen MEDINA, Dr. Mancera Admitting Physician Greg Rich Attending Unavailable Greg Rich Referring Unavailable Erick Rodriguez Attending Unavailable Erick Rodriguez Referring Unavailable Ranney, Christopher Referring Unavailable [place] Unavailable Aye Dey Attending UnavailFiordaliza Gaxiola Attending Unavailable Fiordaliza Zhong Referring Unavailable [place] Primary Care Unavailable Fiordaliza Zhong Consulting Unavailable [place] Unavailable Fiordaliza Zhong Attending Unavailable Fiordaliza Zhong Admitting Unavailable Ranney, Christopher Referring Unavailable Ranney, Christopher Primary Care Unavailable Eva Conroy Attending Unavailable Ranney, Christopher Primary Care Unavailable Ranney, Christopher Referring Unavailable Fiordaliza Zhong Attending Unavailable Erick Rodriguez Attending Unavailable BrooksErick Attending Unavailable Greg Rich Attending Unavailable DiegoonyFiordaliza Referring Unavailable MarcanthonyFiordaliza Consulting Unavailable [facility] Care Unavailable MarcanthonyFiordaliza Attending Unavailable MarcanthonyFiordaliza Admitting Unavailable MarcanthonyFiordaliza Consulting Unavailable [facility] Care Unavailable MarcanthonyFiordaliza Attending Unavailable [facility] [place] Referring Unavailable [facility] Care Unavailable MarcanthonyFiordaliza Attending Unavailable [facility] [place] Referring Unavailable [facility] Primary Care Unavailable BrooksErick Attending Unavailable [facility] Care Unavailable Vande Velde, Aye Referring Unavailabl e Vande Velde, Aye Consulting Unavailabl e Vande Velde, Aye Attending Unavailabl e Marcanthony, Fiordaliza Attending Unavailable MarcanthonyFiordaliza Referring Unavailable [facility] Care Unavailable DiegoonyFiordaliza Consulting Unavailable Erick Rodriguez Attending Unavailable MjanthonyFiordaliza Referring Unavailable [facility] Care Unavailable Fiordaliza Zhong Attending Unavailable Vande Velde, Aye Attending Unavailabl e Vande Velde, Aye Referring Unavailabl e MarcanthonyFiordaliza Referring Unavailable [facility] Care Unavailable Fiordaliza Zhong Attending Unavailable [facility] [place] Referring Unavailable [facility] Care Unavailable Fiordaliza Zhong Attending Unavailable Vande Velde, Aye Attending Unavailabl e BrooksErick pollack Attending Unavailable MarcanthonyFiordaliza Attending Unavailable Greg Rich Attending Unavailable [facility] Referring Unavailable [facility] Primary Care Unavailable Vande Velde, Aye Attending Unavailabl e [facility] Care Unavailable BrooksErick Referring Unavailable BrooksErick Attending Unavailable [facility] Referring Unavailable [facility] Care Unavailable Greg Rich Attending Unavailable Fiordaliza Zhong Admitting Unavailable [facility] Care Unavailable Fiordaliza Zhong Attending Unavailable [facility] Primary Care Unavailable Vande Velde, Aye Referring Unavailabl e Vande Velde, Aye Attending Unavailabl e Medications Current Medications Medication Drug Class(es) Dates Sig (Normalized) Sig (Original) acetaminophen 325 mg / oxyCODONE hydrochloride 5 mg oral tablet (1 source) Opioid Agonist Start: 03-28-2025 take 1 tablet by mouth every four hours as needed for pain Alcohol Swabs (Alcohol Wipes) pads, medicated (6 sources) Start: 03-07-2025 Alcohol Swabs (Alcohol Wipes) pads, medicated Active 1 NMA TOPICAL DAILY 100 0 March 07, 2025 12:00am famotidine 40 mg oral tablet (13 sources) Histamine-2 Receptor Antagonist Start: 01-12-2025 take 1 tablet by mouth twice daily as needed for gastroesophageal reflux disease ferrous sulfate 134 mg oral tablet (1 source) Start: 03-28-2025 take 1 tablet by mouth once daily Flash Glucose Scanning [place] (PoweredAnalyticsstyle Hardeep 2 [place]) misc (7 sources) Start: 03-07-2025 Flash Glucose Scanning [place] (Freestyle Hardeep 2 [place]) misc Active 0 .ROUTE .MEDSUPPLY 1 0 March 07, 2025 12:00am As directed isopropyl alcohol 0.7 ml/ml medicated pad (1 source) Start: 03-07-2025 Multivit 20-Hpvx-Qcpbba 1-Dha (Pnv-Dha) 27 mg iron-1 mg -300 mg capsule (19 sources) Start: 08-29-2020 Start: 08-29-2020 Multivit 47-Ir on-Folate 1-Dha (Pnv-Dha) 27 mg iron-1 mg -300 mg capsule Active 1 NMA PO DAILY August 29, 2020 1:00am Start: 08-29-2020 Multivit 47-Ir on-Folate 1-Dha (Pnv-Dha) 27 mg iron-1 mg -300 mg capsule Active 1 NMA PO DAILY August 29, 2020 1:00am Start: 08-29-2020 take 1 capsule by [facility] once daily Multivit 49-Yphr-Vlltat 1-Dha (Pnv-Dha) 27 mg iron-1 mg -300 mg capsule Active 1 CAP PO DAILY August 29, 2020 1:00am naproxen 500 mg oral tablet (1 source) Nonsteroidal Anti-inflammatory Drug Start: 03-28-2025 take 1 tablet by mouth twice daily as needed for pain Completed/Discontinued Medications Medication Drug Class(es) Dates Sig (Normalized) Sig (Original) Aspirin (19 sources) Platelet Aggregation Inhibitor, Nonsteroidal Anti-inflammatory Drug [...] 12:25pm cyclobenzaprine hydrochloride 10 mg oral tablet (9 sources) Muscle Relaxant Start: 02-07-2025 End: 03-09-2025 take 1 tablet by mouth at bedtime as needed for muscle spasms Cyclobenzaprine 10 mg tablet Discontinued 10 mg PO BEDTIME as needed for muscle spasm 7 0 February 07, 2025 12:00am March 09, 2025 10:26am docusate sodium 100 mg oral capsule (17 sources) Start: 09-14-2024 End: 01-12-2025 take 1 capsule by mouth once daily Docusate Sodium (Colace) 100 mg capsule Discontinued 100 mg PO daily September 14, 2024 1:00am January 12, 2025 10:00am ibuprofen 800 mg oral tablet (19 sources) Nonsteroidal Anti-inflammatory Drug Start: 04-14-2021 End: 09-14-2024 take 1 tablet by mouth every eight hours as needed for pain Ibuprofen 800 mg tablet Discontinued 800 mg PO Q8H as needed for pain 60 1 April 14, 2021 12:00am September 14, 2024 9:24am loratadine 10 mg oral tablet (15 sources) Start: 10-22-2024 End: 01-12-2025 take 1 tablet by mouth once daily as needed Loratadine (Claritin) 10 mg tablet Discontinued 10 mg PO daily as needed October 22, 2024 12:00am January 12, 2025 10:00am omeprazole 20 mg delayed release oral capsule (19 sources) Proton Pump Inhibitor Start: 02-08-2021 End: [...] level; Translations: [Abnormal glucose complicating ] Onset: 03-24-2025 01-25-2025 Episodic Comment on above: nl 3 hr GTT Immunizations and screening for infectious disease (1 source) Encounter for immunization; Translations: [Encounter for immunization] Onset: 04-01-2025 Episodic Malposition; malpresentation (20 sources) Breech presentation; Translations: [Maternal care for breech presentation, not applicable or unspecified] Onset: 03-24-2025 03-07-2025 Episodic Comment on above: at 34 weeks per MFM Other complications of ; puerperium affecting management of mother (2 sources) Deliveries by ; Translations: [Encounter for delivery without indication] 03-28-2025 Episodic Comment on above: RLTCS 37 polyhydr amnios Other complications of ; puerperium affecting management of mother (1 source) Encounter for delivery without indication; Translations: [Encounter for delivery without indication] Onset: 03-30-2025 Episodic Other complications of (20 sources) Severe obesity complicating ; Translations: [Obesity complicating , unspecified trimester] 09-24-2024 Chronic Comment on above: [id number]-2.6 nl 1 tm hga1c. recom mend weekly bpps 34 on, growth US 32 and 36. Other complications of (2 sources) Obesity complicating , unspecified trimester; Translations: [Obesity complicating , unspecified trimester] Onset: 04-01-2025 Chronic Other complications of (20 sources) RhD [...] , MEET 04/17, boy PC [place], [place] PRR, , MEET 04/17, boy Agustín PC [place], [place] Other complications of (20 sources) Advanced [...] MFM, QID glucose testing Other complications of (1 source) Supervision of elderly multigravida, third trimester; Translations: [Supervision of elderly multigravida, third trimester] Onset: 04-05-2025 Episodic Other complications of (2 sources) Maternal care for excessive growth, unspecified trimester, not applicable or unspecified; Translations: [Maternal care for excessive growth, unspecified trimester, not applicable or unspecified] Onset: 03-24-2025 Episodic Other complications of (2 sources) Supervision of high risk , unspecified, second trimester; Translations: [Supervision of high risk , unspecified, second trimester] Onset: 04-01-2025 Episodic Other complications of (2 sources) Other specified related conditions, unspecified trimester; Translations: [Other specified related conditions, unspecified trimester] Onset: 04-01-2025 Episodic Other nutritional; endocrine; and metabolic disorders (2 sources) Morbid (severe) obesity due to excess calories; Translations: [Morbid (severe) obesity due to excess calories] Onset: 04-01-2025 Chronic Other and delivery including normal (20 sources) Vaginal delivery; Translations: [Encounter for full-term uncomplicated delivery] Onset: 03-02-2025 04-17-2021 Episodic Comment on above: GP IOL LT 04/14 B oy-[place] elects NIPT with gen radha, insufficient DNA, [...] unspecified trimester, not applicable or unspecified] Onset: 03-24-2025 03-07-2025 Episodic Comment on above: MIKE 36 at 34 weeks p er MFM. QID glucose testing. twice weekly ANFS-BPP and NST. Consult with MFM ordered. deliver at 37 weeks MIKE 36 at 34 weeks p er MFM. QID glucose testing. twice weekly ANFS-BPP and NST. Consult with MFM ordered. deliver at 37 weeks scheduled for 03/28 @ 7:15 with SM Residual codes; unclassified (19 sources) Family history of cystic fibrosis; Translations: [Family history of other endocrine, nutritional and metabolic diseases] 12-29-2020 Episodic Comment on above: Brendan's 1st cousin Residual codes; unclassified (2 sources) 36 weeks gestation of ; Translations: [36 weeks gestation of ] Onset: 03-24-2025 Episodic Residual codes; unclassified (2 sources) 34 weeks gestation of ; Translations: [34 weeks gestation of ] Onset: 03-09-2025 Episodic Residual codes; unclassified (2 sources) Unspecified blood type, Rh negative; Translations: [Unspecified blood type, Rh negative] Onset: 04-01-2025 Episodic Residual codes; unclassified (1 source) 32 weeks gestation of ; Translations: [32 weeks gestation of ] Onset: 02-22-2025 Episodic Residual codes; unclassified (1 source) 28 weeks gestation of ; Translations: [28 weeks gestation of ] Onset: 04-01-2025 Episodic Past or Other Problems Problem Classification [...] conditions (not mental disorders or infectious disease) (20 sources) Abnormal cervical Papanicolaou smear; Translations: [Unspecified [...] Test Name Value Interpretation Reference Range Facility MR[facility] 03-31-20[facility] [address] [place] [id number] OFFICE VISIT Date of Service: 03/31/25 MR#: [id number] Acct: [id number] Name: DEMETRIUS FERNANDES Rep #: [id number] : 1990 Provider: MARY JANE zuleta Age/Sex: 34/F Location: [facility] [place] Status: Signed Intake Vital Signs 03/28/25 05:40 03/31/25 15:17 Height 5 ft 9 in 5 ft 9 in Intake Visit Reasons: feeding assessment Allergies No Known Allergies Allergy (Verified 03/28/25 05:58) [facility] Medical History (Updated 03/31/25 @ 15:09 by MARY JANE Elkins) Care and examination of lactating mother Polyhydramnios macrosomia Gestational diabetes Asthma Seasonal allergies Tilted uterus Abnormal Pap smear of cervix Surgical History History of elective History of tonsillectomy Family History Grandfather Diabetes Paternal Type 2 Uncle AA (aortic aneurysm) Brain- Maternal Grandmother AA (aortic aneurysm) Paternal Social History (Updated 03/31/25 @ 15:45 by MARY JANE Elkins) adopted: No household members: spouse and children housing: house number of children: 2 current occupational status: employed current occupation: [employer] current occupational exposures/hazards: No pets and [...] 1-2 times per week duration: 30-45 minutes/day parul/adventism: None seatbelt use: always do you feel safe at home: Yes additional social history: - [employer]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 Date Name GA/Weeks Outcome Route Bth Weight Infant Gen Labor Lgth Anesthesia Del Locatn Provider FOB 04/14/21 [place] 41 live - full term 8#2oz Male epidural [facility] GP [place] 03/28/25 Agustín 37 live - full term 8lbs 1oz [facility] Delivery Date: 04/14/21 Last Updated by: Simi Zarate 2nd degree laceration HPI HPI HPI: DEMETRIUS FERNANDES, is a 34 F who presents to the office today for latch assessment, weighted feed. ROS ROS Const Constitutional: Denies fever(s) or lethargy : Denies nipple discharge Skin Skin/Breast: Denies breast pain, breast skin changes or nipple discharge Exam Maternal Assessment Breast Assessment Bilateral Breasts: Soft and Symmetrical Nipple Assessment Bilateral Nipples: Everted and Short Areolar Tissue Areolar Tissue: Pliable Assessment Baby Feeding History Is your baby latching onto the breast: Yes Number of Breast Feedings in 24 hours: 8-12, but did cluster feed every 20-30min from midnight to 6am Minutes per breast: First Breast: 10-15 Minutes per breast: Second Breast: 15-20 Supplements Supplement Type:: Expressed milk (pumped milk and donor milk) Frequency: x2, donor milk x1 9ml, EBM x1 8ml Breast Pumping Type of Breast Pump: ameda hand pump, ordered a zomee, which has not been delivered Frequency: x1 last night at 2200 Amount: 8ml Output - Last 24 hours Wets/Color:: 8-10 Stools/Color:: 6-7 yellow Goals Breast Feeding Goals: exclusive Exam Const General: comfortable and no acute distress Orientation: alert and oriented x3 Chest Breast inspection: normal inspection of the breasts Breast palpation: normal palpation of the breasts Resp Effort Inspection: normal respiratory effort Skin General: no rashes or lesions noted Psych Appearance: grossly normal Mental Status: mental status grossly normal Affect: normal affect Assessment and Plan Assessment and Plan (1) Care and examination of lactating mother: Status: Acute Plan: Assisted patient to feed in office today, latched for 30 minutes, transferred 10ml total from both breasts. Concern for low transfer volume and 11% decrease from weight today. Plan to supplement with formula (donor milk offered, but declined by patient) and expressed breast milk. MOB has a manual ameda pump (more content not included)... Normal [facility] Bedside Glucoseon 03-29-2025 FINGERSTICK GLU 77 mg/dL Normal 74-106 [facility] Comment on above: Result Comment: JOAQUIM SEPULVEDA OF PATIENT CARE PER NURSING PROTOCOL Performed By: #### L 501.080 #### [facility] [address] [place], [address] CBC-Complete Blood Cnt No Di ffon 03-29-2025 Erythrocyte distribution width (RBC) [Ratio] 15.5 % High 11.6-14.6 [facility] Comment on above: Order Comment: Comme nts: Day #1 Reason for Laboratory Test Performed By: #### L 100.0500 #### [facility] [address] [place], [address] Hematocrit (Bld) [Volume fraction] 30.4 % Low 37-47 [facility] Comment on above: Order Comment: Comme nts: Day #1 Reason for Laboratory Test Performed By: #### L 100.0500 #### [facility] [address] [place], [address] Hemoglobin (Bld) [Mass/Vol] 9.9 g/dL Low 12.0-15.0 [facility] Comment on above: Order Comment: Comme nts: Day #1 Reason for Laboratory Test Performed By: #### L 100.0500 #### [facility] [address] [place], [address] MCH (RBC) [Entitic mass] 27.2 pg Normal 27.0-32.0 [facility] Comment on above: Order Comment: Comme nts: Day #1 Reason for Laboratory Test Performed By: #### L 100.0500 #### [facility] [address] [place], [address] MCHC (RBC) [Mass/Vol] 32.6 g/dL Normal 32-36 [facility] Comment on above: Order Comment: Comme nts: Day #1 Reason for Laboratory Test Performed By: #### L 100.0500 #### [facility] [address] [place], [address] MCV (RBC) [Entitic vol] 83.5 fL Normal 81-99 [facility] Comment on above: Order Comment: Comme nts: Day #1 Reason for Laboratory Test Performed By: #### L 100.0500 #### [facility] [address] [place], [address] Platelet mean volume (Bld) [Entitic vol] 10.6 fL Normal 6.2-12.0 [facility] Comment on above: Order Comment: Comme nts: Day #1 Reason for Laboratory Test Performed By: #### L 100.0500 #### [facility] [address] [place], [address] Platelets (Bld) [#/Vol] 211 10*3/uL Normal 150-450 [facility] Comment on above: Order Comment: Comme nts: Day #1 Reason for Laboratory Test Performed By: #### L 100.0500 #### [facility] [address] [place], [address] RBC (Bld) [#/Vol] 3.64 10*6/uL Low 4.2-5.4 [facility] Comment on above: Order Comment: Comme nts: Day #1 Reason for Laboratory Test Performed By: #### L 100.0500 #### [facility] [address] [place], [address] RDW SD 47.1 fl High 35.1-43.9 [facility] Comment on above: Order Comment: Comme nts: Day #1 Reason for Laboratory Test Performed By: #### L 100.0500 #### [facility] [address] [place], [address] WBC (Bld) [#/Vol] 12.2 10*3/uL High 4.4-11.0 [facility] Comment on above: Order Comment: Comme nts: Day #1 Reason for Laboratory Test Performed By: #### L 100.0500 #### [facility] [address] [place], [address] Erythrocyte distribution wid th ratioOrdered By: Fiordaliza Zhong on 03-29-2025 Erythrocyte distribution width (RBC) [Ratio] 15.5 % High 11.6-14.6 [facility] Erythrocyte distribution wid th standard deviationOrdered By: Fiordaliza Zhong on 03-29-2025 Erythrocyte distribution width (RBC) [Ratio] 47.1 fl High 35.1-43.9 [facility] Glucose measurement at bedsi deOrdered By: Fiordaliza Zhong on 03-29-2025 Glucose [Mass/Vol] 77 mg/dL 74-106 [facility] Comment on above: MANAGEMENT OF PATIEN T CARE PER NURSING PROTOCOL Hematocrit Auto (Bld) [Volum e fraction]Ordered By: Fiordaliza Zhong on 03-29-2025 Hematocrit (Bld) [Volume fraction] 30.4 % Low 37-47 [facility] Hemoglobin measurementOrdere d By: Fiordaliza Zhong on 03-29-2025 Hemoglobin (Bld) [Mass/Vol] 9.9 g/dL Low 12.0-15.0 [facility] MCV (mean corpuscular volume ) determinationOrdered By: Fiordaliza Zhong on 03-29-2025 MCV (RBC) [Entitic vol] 83.5 fL 81-99 [facility] Mean corpuscular hemoglobin (MCH) determinationOrdered By: Fiordaliza Zhong on 03-29-2025 MCH (RBC) [Entitic mass] 27.2 pg 27.0-32.0 [facility] Mean corpuscular hemoglobin concentration (MCHC) determinationOrdered By: Fiordaliza Zhong on 03-29-2025 MCHC (RBC) [Mass/Vol] 32.6 g/dL 32-36 [facility] Mean platelet volume determi nationOrdered By: Fiordaliza Zhong on 03-29-2025 Platelet mean volume (Bld) [Entitic vol] 10.6 fL 6.2-12.0 [facility] Platelet countOrdered By: Aga Zhong on 03-29-2025 Platelets (Bld) [#/Vol] 211 10*3/uL 150-450 [facility] RBC Auto (Bld) [#/Vol]Ordere d By: Fiordaliza Zhong on 03-29-2025 RBC (Bld) [#/Vol] 3.64 10*6/uL Low 4.2-5.4 [facility] White blood cell (WBC) count Ordered By: Fiordaliza Zhong on 03-29-2025 WBC (Bld) [#/Vol] 12.2 10*3/uL High 4.4-11.0 [facility] Absolute lymphocyte countOrd ered By: Fiordaliza Zhong on 03-28-2025 Lymphocytes Auto (Unsp spec) [#/Vol] 1.92 10*3/uL 0.83-4.51 [facility] Absolute neutrophil countOrd ered By: Fiordaliza Zhong on 03-28-2025 Neutrophils (Bld) [#/Vol] 8.7 10*3/uL High 2.0-7.7 [facility] Automated lymphocyte count a s percentage of total leukocytesOrdered By: Fiordaliza Zhong on 03-28-2025 Lymphocytes/100 WBC Auto (Unsp spec) 16.3 % Low 19-41 [facility] BRho(D) IGon 03-28-2025 Rho(D) IG Normal [facility] Comment on above: Result Comment: [id number] Rho(D) IG PRSMD TRFSD 03/28/25 1721 Performed By: #### L 509.8002 #### [facility] [address] [place], [place], [address] Basophil percentageOrdered B y: Fiordaliza Zhong on 03-28-2025 Basophils/100 WBC (Bld) 0.3 % 0-1 [facility] Bedside Glucoseon 03-28-2025 FINGERSTICK GLU 175 mg/dL High 74-106 [facility] Comment on above: Result Comment: JOAQUIM SEPULVEDA OF PATIENT CARE PER NURSING PROTOCOL Performed By: #### L 501.080 #### [facility] [address] [place], [place], [address] CBC W/Diff, Automatedon 03-14 Absolute Lymph 1.92 X10 3/uL Normal 0.83-4.51 [facility] Comment on above: Performed By: #### L 100.0500 #### [facility] [address] [place], [address] Absolute Neut 8.7 X10 3/uL High 2.0-7.7 [facility] Comment on above: Performed By: #### L 100.0500 #### [facility] [address] [place], [address] Basophils/100 WBC (Bld) 0.3 % Normal 0-1 [facility] Comment on above: Performed By: #### L 100.0500 #### [facility] [address] [place], [address] Eosinophils/100 WBC (Bld) 1.6 % Normal 0-5 [facility] Comment on above: Performed By: #### L 100.0500 #### [facility] [address] [place], [address] Erythrocyte distribution width (RBC) [Ratio] 15.5 % High 11.6-14.6 [facility] Comment on above: Performed By: #### L 100.0500 #### [facility] [address] [place], [address] Hematocrit (Bld) [Volume fraction] 32.4 % Low 37-47 [facility] Comment on above: Performed By: #### L 100.0500 #### [facility] [address] [place], [address] Hemoglobin (Bld) [Mass/Vol] 10.7 g/dL Low 12.0-15.0 [facility] Comment on above: Performed By: #### L 100.0500 #### [facility] [address] [place], [address] IG% 0.400 Normal 0.0-0.9 [facility] Comment on above: Result Comment: IG% - Immature Granulocytes (promyelocytes, myelocytes and metamyelocytes) > 1% indicates that a LEFT SHIFT is Present. Performed By: #### L 100.0500 #### [facility] [address] [place], [address] Lymphocytes/100 WBC (Bld) 16.3 % Low 19-41 [facility] Comment on above: Performed By: #### L 100.0500 #### [facility] [address] [place], [address] MCH (RBC) [Entitic mass] 27.5 pg Normal 27.0-32.0 [facility] Comment on above: Performed By: #### L 100.0500 #### [facility] [address] [place], [address] MCHC (RBC) [Mass/Vol] 33.0 g/dL Normal 32-36 [facility] Comment on above: Performed By: #### L 100.0500 #### [facility] [address] [place], [address] MCV (RBC) [Entitic vol] 83.3 fL Normal 81-99 [facility] Comment on above: Performed By: #### L 100.0500 #### [facility] [address] [place], [address] Monocytes/100 WBC (Bld) 7.5 % Normal 0-10 [facility] Comment on above: Performed By: #### L 100.0500 #### [facility] [address] [place], [address] Neutrophils/100 WBC (Bld) 73.9 % High 47-70 [facility] Comment on above: Performed By: #### L 100.0500 #### [facility] [address] [place], [address] Nucleated RBC (Bld) [#/Vol] 0 10*3/uL Normal 0-5 [facility] Comment on above: Performed By: #### L 100.0500 #### [facility] [address] [place], [address] Platelet mean volume (Bld) [Entitic vol] 10.8 fL Normal 6.2-12.0 [facility] Comment on above: Performed By: #### L 100.0500 #### [facility] [address] [place], [address] Platelets (Bld) [#/Vol] 247 10*3/uL Normal 150-450 [facility] Comment on above: Performed By: #### L 100.0500 #### [facility] [address] [place] [place], [address] RBC (Bld) [#/Vol] 3.89 10*6/uL Low 4.2-5.4 [facility] Comment on above: Performed By: #### L 100.0500 #### [facility] [address] [place] [place], [address] RDW SD 46.6 fl High 35.1-43.9 [facility] Comment on above: Performed By: #### L 100.0500 #### [facility] [address] [place], [address] WBC (Bld) [#/Vol] 11.8 10*3/uL High 4.4-11.0 [facility] Comment on above: Performed By: #### L 100.0500 #### [facility] [address] [place] [place], [address] Discharge Instructionon 03-14 Discharge Instruction [facility] Medical Records Department [address] [place] [address] Instructions for Home/Discharge Instructions 03/28/25 0719 MR#: [id number] Acct: [id number] Name: DEMETRIUS FERNANDES Rep #: [id number] : 1990 34 From: Fiordaliza Zhong MD PCP: Dr. Delmar Luna MD Status:ADM IN Discharge Instructions DC O2, CPAP, BIPAP needs Home O2 Discharge instructions: No Dressing / Incision Discharge Activity: May Not Drive (for 2 weeks or while taking narcotic pain medications.), May Shower and May Take a Tub Bath (in 7 days) May shower in (days): 0 May resume sexual activity in: 4-6 weeks Weight Bearing Status: Full weight bearing Lifting Restrictions: 20 pounds Dressing / Incision Call your doctor if your incision/area has: Continuous Slow Oozing, Sudden Increased Bleeding, Increased Pain/ Swelling, Increased Redness and Foul Smelling Discharge Call your doctor if you observe: Fever of 101 or Higher and Using more than 1 pad per hour (for 2 hours) Suture Line Care: Avoid Pulling/Pushing and Avoid Pinching/Bending Cleanse incision/area with: Soap Water and Keep Dressing Clean Dry Follow Up Care Please Follow Up With: Fiordaliza Zhong MD When: Call [phone] to make an appointment for an incision check in 1-2 weeks. Test Results: Test results from this visit will be discussed in further detail at your follow-up appointment, if applicable. Discharge Plan Admission Admit Date/Time: 03/28/25 05:47 Attending Provider: Fiordaliza Zhong Primary Care Provider: Delmar Luna Discharge Orders/Prescriptions Prescriptions: New naproxen 500 mg tablet 500 mg PO BID PRN PRN (Reason: Pain) Qty: 30 1RF oxycodone-acetaminophe n [Percocet] 5-325 mg tablet 1 tab PO Q4H PRN (Reason: pain) 7 Days Qty: 20 0RF No Action PNV-DHA 27 mg iron-1 mg -300 mg capsule 1 cap PO DAILY famotidine [Pepcid] 40 mg tablet 40 mg PO BID PRN (Reason: heartburn) Qty: 30 3RF ferrous sulfate 27 mg iron tablet 27 mg PO DAILY (DME) FreeStyle Hardeep 2 [place] Misc See Rx Instructions .ROUTE .MEDSUPPLY Qty: 1 0RF Rx Instructions: As directed (DME) Advanced Gluc Meter Test Strip Strip See Rx Instructions .Route Qty: 100 5RF Rx Instructions: As directed (DME) lancets Misc See Rx Instructions .ROUTE .MEDSUPPLY Qty: 200 2RF Rx Instructions: As directed, fasting and 2 hours post meals alcohol swabs [Alcohol Wipes] Pads, Medicated 1 pad topical DAILY Qty: 100 0RF Referrals / Follow Up: Delmar Luna MD [Primary Care Provider] - 03/30/25 1511 Fiordaliza Zhong MD CC: Dr. Delmar Luna MD Signed Normal [facility] Eosinophil percentageOrdered By: Fiordaliza Zhong on 03-28-2025 Eosinophils/100 WBC (Bld) 1.6 % 0-5 [facility] Immature granulocytes/100 WB C Auto (Bld)Ordered By: Fiordaliza Zhong on 03-28-2025 Immature granulocytes/100 WBC (Bld) 0.400 % 0.0-0.9 [facility] Comment on above: IG% - Immature Granu locytes (promyelocytes, myelocytes and metamyelocytes) > 1% indicates that a LEFT SHIFT is Present. Monocyte percentageOrdered B y: Fiordaliza Zhong on 03-28-2025 Monocytes/100 WBC (Bld) 7.5 % 0-10 [facility] Neutrophil percentageOrdered By: Fiordaliza Zhong on 03-28-2025 Neutrophils/100 WBC (Bld) 73.9 % High 47-70 [facility] Nucleated red blood cell per centageOrdered By: Fiordaliza Zhong on 03-28-2025 Nucleated RBC/100 WBC (Bld) [Ratio] 0 % 0-5 [facility] Operative Reporton [address] [facility] Medical Records Department [address] [place] [address] Operative Report 03/28/25 0716 MR#: [id number] Acct: [id number] Name: DEMETRIUS FERNANDES Rep #: [id number] : 1990 34 From: Fiordaliza Zhong MD PCP: Dr. Delmar Luna MD Status:ADM IN Location: [id number] Assessment Plan (1) Pre-existing severe obesity in mother affecting : COMMENT: nl 1 tm hga1c. recommend weekly bpps 34 on, growth US 32 and 36. (2) Rh negative state in antepartum period: COMMENT: O-, Rhogam @ 28 wks, Given 01/24/25 (3) : QUALIFIERS: Weeks of gestation: 36 weeks Qualified Code(s): Z3A.36 - 36 weeks gestation of COMMENT: elects NIPT with gender, insufficient DNA X 2; AFP Neg. Nml anatomy. (4) Supervision of high-risk : QUALIFIERS: Trimester: second trimester Qualified Code(s): O09.92 - Supervision of high risk , unspecified, second trimester COMMENT: PRR, , MEET 04/17/25, boy Agustín Warner, [place] (5) Advanced maternal age (AMA) in : (6) Abnormal glucose affecting : COMMENT: nl 3 hr GTT (7) Polyhydramnios affecting : COMMENT: MIKE 36 at 34 weeks per MFM. QID glucose testing. twice weekly ANFS-BPP and NST. Consult with M ordered. deliver at 37 weeks scheduled for 03/28 @ 7:15 with (8) Macrosomia affecting management of mother, antepartum: COMMENT: EFW 3205 at 34 weeks per MFM, QID glucose testing (9) Breech presentation: COMMENT: at 34 weeks per MFM (10) delivery delivered: COMMENT: RLTCS 37 polyhydramnios Maternal Data Information MEET Calculator Estimated Delivery Date Method Current WG Current Estimate 04/17/25 LMP (Certain) 37w 3d Other Estimates 04/14/25 Ultrasound #1 37w 6d Final MEET Source: LMP Operative Report (OB) Procedure Details Date of Procedure: 03/28/25 Procedure Start Time: 07:48 Pre-Operative Diagnosis: Breech and Other Other Pre-Operative diagnosis: see a/p comments Post-Operative Diagnosis: Same as Pre-operative diagnosis Classification: Scheduled Type of Anesthesia: Spinal Special Medications: none Antibiotic Given: Ancef 2 grams IV x1 Drain: Roberson to straight drain Estimated Blood Loss: 900 Fluids Replaced: crystalloid Findings Description of surgery: Spinal anesthesia was placed without difficulty. Roberson catheter was placed. The patient was placed in the dorsal supine position with leftward tilt. Patient was prepped and draped in the normal sterile fashion. Pfannenstiel skin incision was made with the scalpel and carried through to the underlying layer of fascia with the scalpel. Fascia was nicked in the midline and the incision extended laterally. The rectus bellies were dissected off superiorly and inferiorly with out complication both sharply and bluntly. The peritoneum was entered digitally. The incision was stretched and a low transverse uterine incision was made with the scalpel. infant was found to be converted to vertex. patient had stated preivously she desired a csection regardless of presentation and declined scan prior to delivery. head delivered without complicaton prior to hsoulder s and the rest of the . delayed cord clamping employed and then the cord was clamped and cut. infant passed to nurse. The placenta was delivered spontaneously immediately following and was noted to be intact and have a three-vessel cord. The uterus was exteriorized cleared of all clots and debris, and the incision was closed in a single layer closure using #1 Monocryl. The ovaries and fallopian tubes were noted to be within normal limits. The uterus was returned to the maternal abdomen and gutters were cleared of all clots and debris. The peritoneum was closed with 3- 0 Monocryl in a running fashion. Gloves were changed prior to fascial closure. Fascia was closed with 0 PDS in a running fashion. Subcutaneous tissue was copiously irrigated and the skin was closed with 3-0 Monocryl in a subcuticular fashion. Mepilex dressing was applied without complication. Patient was taken to recovery in stable condition. Surgical findings: nl uterus tubes ovaries Presentation: Vertex Amniotic Membrane Rupture Type: Artificial Amniotic Fluid Description: Clear Specimen collected: Yes Description of specimen(s) removed: placenta and baby Cord Vessel Description: 3 Vessels Delayed Cord Clamping: Yes Casework Manager special delivery clerk: Yes Production Controller: Catracho Davison Tasks completed by medical assistant prn: Opening closing, Retracting and Other (assisting in delivery of the infant) Additional medical research assistant?: No Complications Complications: No Admit VTE Documentation VTE Present on Admission: No VTE Mechan Device Prophylaxis: SCD's Procedures Urinary/Genital 52xxx-59xxx: 18506 Delivery [facility] 03/30/25 0800 Co (more content not included)... Normal [facility] Rh Negative Mom Workupon ABO and Rh group Nom (Bld) Blood group O Rh(D) negative Normal [facility] Comment on above: Order Comment: Comme nts: Age > 13 [id number] Performed By: #### L 509.8002 #### [facility] [place], [address] ABO and Rh group Nom (Bld) Blood group A Rh(D) positive Normal [facility] Comment on above: Order Comment: Comme nts: Age > 13 [id number] Performed By: #### L 509.8002 #### [facility] [address] [place], [address] DIRECT ANTIGLOB Negative Normal NEGATIVE [facility] Comment on above: Order Comment: Comme nts: Age > 13 [id number] Performed By: #### L 509.8002 #### [facility] [address] [place], [address] SCREEN Negative Normal NEGATIVE [facility] Comment on above: Order Comment: Comme nts: Age > 13 [id number] Performed By: #### L 509.8002 #### [facility] [address] [place], [address] MOM'S ABS Negative Normal [facility] Comment on above: Order Comment: Comme nts: Age > 13 [id number] Performed By: #### L 509.8002 #### [facility] [address] [place], [address] Syphilis Antibodieson 2024 Syphilis Abs Non-Reactive Normal Nonreactive [facility] Comment on above: Performed By: #### L 509.8002 #### [facility] [address] [place], [address] Type AND Screenon 03-28-2025 Ab SCREEN GEL Negative Normal [facility] Comment on above: Order Comment: Comme nts: Day #1 Reason for Laboratory Test Performed By: #### L 100.0500 #### [facility] [address] [place] [place], [address] OB Triage Progress Noteon OB Triage Progress Note [facility] Medical Records Department [address] [place] [address] OB Triage Progress Note 03/24/25 1004 MR#: [id number] Acct: [id number] Name: DEMETRIUS FERNANDES Rep #: [id number] : 1990 34 From: Fiordaliza Zhong MD PCP: Dr. Delmar Luna MD Status:REG CLI Y DOS: Location: [place] [id number] Progress Notes Date of Service: 03/24/25 Progress Note: Patient presents for triage evaluation secondary to polyhydramnios FHT: 135 Moderate variability reactive no decelerations category I tracing Dysart: no regular Contractions Assessment and plan: 36 weeks severe polyhydramnios Reactive NST, reassuring maternal and status patient discharged to home to follow-up as scheduled. See problem list details for additional plan information. Charges/Coding Procedures Urinary/Genital 52xxx-59xxx: 32116-15 non-stress test Interp 03/24/25 1005 Date Fiordaliza Zhong MD Cosigner Signature (if applicable): Date CC: Dr. Delmar Luna MD; Dr. Fiordaliza Zhong MD Signed Normal [facility] Registered Public Health Nurse Office Visit Reporton 03-24-2025 Registered Public Health Nurse Office Visit Report [facility]'s [address], [address] [place] [address] OFFICE VISIT Date of Service: 03/24/25 MR#: [id number] Acct: [id number] Name: DEMETRIUS FERNANDES Rep #: [id number] : 1990 Provider: Dr. Fiordaliza leong MD Age/Sex: 34/F Location: [facility] Status: Signed Intake Vital Signs 03/24/25 09:10 03/24/25 10:26 Height 5 ft 9 in 5 ft 9 in Weight: 345 lb 9 oz BMI 51.0 BP 132/76 H Intake Visit Reasons: 37wk ob before csection *per Linoleum Printer Required: No Is patient in pain?: No [...] ea 03/07/25 03/24/25 Rx (FreeStyle Hardeep 2 [place]) lancets #200 ea 03/07/25 03/24/25 Rx Last [...] occupational status: employed and unemployed current occupation: [employer] current occupational exposures/hazards: No pets [...] 1-2 times per week duration: 30-45 minutes/day parul/adventism: None seatbelt use: always do you feel safe at home: Yes additional social history: - [place] [employer] @ 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 Date Name GA/Weeks Outcome Route Bth Weight Gen Labor Lgth Anesthesia Del Locatn Provider FOB 04/14/21 Timmy 41 live - full term 8#2oz Male epidural [facility] GP [place] Delivery Date: 04/14/21 Last [...] Visit Note (more content not included)... Normal [facility] Rule out Beta Strep (Grp. B) on 03-23-2025 PRICE Group B Beta Streptococcus is not isolated. Normal [facility] Comment on above: Performed By: #### L 509.8002 #### [facility] [address] [place], [place], [address] Laboratory - Chemistry and C hemistry - challengeOrdered By: Fiordaliza Zhong on 03-21-2025 Glucose Ql (U) Negative [facility] - UrinalysisOrder ed By: Fiordaliza Zhong on 03-21-2025 Protein Ql (U) Negative [facility] Registered Public Health Nurse Office Visit Reporton 03-21-2025 Registered Public Health Nurse Office Visit Report [facility]'s [address], [address] [place] [address] OFFICE VISIT Date of Service: 03/21/25 MR#: [id number] Acct: [id number] Name: DEMETRIUS FERNANDES Rep #: [id number] : 1990 Provider: Dr. Fiordaliza leong MD Age/Sex: 34/F Location: [facility] Status: Signed Intake Vital Signs 01/24/25 08:40 03/09/25 10:29 03/15/25 10:40 03/21/25 10:29 Height 5 ft 9 in 5 ft 9 in 5 ft 9 in 5 ft 9 in Weight: 342 lb 6 oz BMI 50.5 BP 127/72 H Intake Visit Reasons: 36 wk ob Linoleum Printer Required: No Is patient in pain?: No [...] ea 03/07/25 03/21/25 Rx (FreeStyle Hardeep 2 [place]) lancets #200 ea 03/07/25 03/21/25 Rx Last [...] occupational status: employed and unemployed current occupation: [employer] current occupational exposures/hazards: No pets [...] 1-2 times per week duration: 30-45 minutes/day parul/adventism: None seatbelt use: always do you feel safe at home: Yes additional social history: - [place] [employer] @ 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 Date Name GA/Weeks Outcome Route Bth Weight Gen Labor Lgth Anesthesia Del Locatn Provider FOB 04/14/21 Timmy 41 live - full term 8#2oz Male epidural [facility] GP [place] Delivery Date: 04/14/21 Last [...] Visit Note (more content not included)... Normal [facility] Progress Noteon 03-21-2025 Wrapping Checker Authentication Interface Message Text Comanage Polyhydramnios- concern [...] of 03/21/2025. [2] No Known Allergies Normal [facility] Screening beta-hemolytic Str eptococcus cultureOrdered By: Fiordaliza Zhong on 03-21-2025 Beta-hemolytic Streptococcus culture Group B Beta Streptococcus is not isolated. [facility] Progress Noteon 03-16-2025 Wrapping Checker Authentication Interface Message Text Comanage Polyhydramnios- concern [...] [2] No Known Allergies Normal [facility] OB Triage Progress Noteon OB Triage Progress Note [facility] Medical Records Department [address] [place] [address] OB Triage Progress Note 03/15/25 1110 MR#: [id number] Acct: [id number] Name: DEMETRIUS FERNANDES Rep #: [id number] : 1990 34 From: Fiordaliza Zhong MD PCP: Dr. Delmar Luna MD Status:REG CLI Y DOS: Location: [place] [address] Progress Notes Date of Service: 03/15/25 Progress Note: Patient presents for triage evaluation secondary to polyhydramnios FHT: 130-135 Moderate variability reactive no decelerations category I tracing Dysart: no regular Contractions Assessment and plan: polyhydramnios 35 weeks Reactive NST, reassuring maternal and status patient discharged to home to follow-up as scheudled. See problem list details for additional plan information. Charges/Coding Procedures Urinary/Genital 52xxx-59xxx: 64193-37 non-stress test Interp Assessment Plan (1) Polyhydramnios [...] MD; Dr. Fiordaliza Zhong MD Signed Normal [facility] Progress Noteon 03-11-2025 Wrapping Checker Authentication Interface Message Text [facility] Ultrasound Consult Note Today we discussed [...] 04/14/21 41w0d 3.685 kg M Vag-Spont Comments: [facility] NIPT not able to be calculated [...] decrease in amniotic fluid. All questions answered. [facility] CS#46 recommendations. 1. Serial growth ultrasounds [...] chart review and documentation Normal [facility] Laboratory - Chemistry and C hemistry - challengeOrdered By: Aye Mcdowell on 03-09-2025 Glucose Ql (U) Negative [facility] - UrinalysisOrder ed By: Aye Mcdowell on 03-09-2025 Protein Ql (U) Negative [facility] OB Triage Physician Noteon 0 03-09-2025 OB Triage Physician Note [facility] Medical Records Department [address] [place] [address] OB Triage Physician Note 03/09/252037 MR#: [id number] Acct: [id number] Name: DEMETRIUS FERNANDES Rep #: [id number] : 1990 34 From: Aye Dey DO PCP: Dr. Delmar Luna MD Status:DEP CLI Y Location: [facility] HPI - General HPI Narrative DEMETRIUS FERNANDES, is a 34 F who presents to [facility] for an NST at 34 weeks [...] ea 03/07/25 Unknown Rx (FreeStyle Hardeep 2 [place]) lancets #200 ea 03/07/25 Unknown Rx Allergy/AdvReac [...] occupational status: employed and unemployed current occupation: [employer] current occupational exposures/hazards: No pets [...] 1-2 times per week duration: 30-45 minutes/day parul/adventism: None seatbelt use: always do you feel safe at home: Yes additional social history: - [place] [employer] @ 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 Date Name GA/Weeks Outcome Route Bth Weight Gen Labor Lgth Anesthesia Del Locatn Provider FOB 04/14/21 [place] 41 live - full term 8#2oz Male epidural [facility] GP [place] Delivery Date: 04/14/21 Last [...] -???-???-???-???-???-? ??- (more content not included)... Normal [facility] Registered Public Health Nurse Office Visit Reporton 03-09-2025 Registered Public Health Nurse Office Visit Report [facility] Women[facility] [address], [address] [place] [address] OFFICE VISIT Date of Service: 03/09/25 MR#: [id number] Acct: [id number] Name: DEMETRIUS FERNANDES Rep #: [id number] : 1990 Provider: Dr. Aye Morel DO Age/Sex: 34/F Location: [facility] Status: Signed Intake Vital Signs 01/12/25 09:43 02/22/25 10:03 03/09/25 08:54 03/09/25 08:55 Height 5 ft 9 in 5 ft 9 in 5 ft 9 in 5 ft 9 in Weight: 339 lb 6 oz BMI 50.1 BP 136/85 H Intake Visit Reasons: 34 wk ob Linoleum Printer Required: No Is patient in pain?: No [...] ea 03/07/25 03/09/25 Rx (FreeStyle Hardeep 2 [place]) lancets #200 ea 03/07/25 03/09/25 Rx Last [...] occupational status: employed and unemployed current occupation: [employer] current occupational exposures/hazards: No pets [...] 1-2 times per week duration: 30-45 minutes/day parul/adventism: None seatbelt use: always do you feel safe at home: Yes additional social history: - [place] 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 Date Name GA/Weeks Outcome Route Bth Weight Gen Labor Lgth Anesthesia Del [place] Provider FOB 04/14/21 Timmy 41 live - full term 8#2oz Male epidural [facility] GP [place] Delivery Date: 04/14/21 Last [...] -???- Gluc (more content not included)... Normal [facility] - Chemistry and C hemistry - challengeOrdered By: Greg Rich on 02-22-2025 Glucose Ql (U) Negative [facility] - UrinalysisOrder ed By: Greg Rich on 02-22-2025 Protein Ql (U) Negative [facility] Registered Public Health Nurse Office Visit Reporton 02-22-2025 Registered Public Health Nurse Office Visit Report [facility]'s [address], [address] [place] [address] OFFICE VISIT Date of Service: 02/22/25 MR#: [id number] Acct: [id number] Name: DEMETRIUS FERNANDES Rep #: [id number] : 1990 Provider: ZACHARY Way ams Age/Sex: 34/F Location: [facility] Status: Signed Intake Vital Signs 01/12/25 09:43 02/07/25 09:25 02/22/25 10:03 Height 5 ft 9 in 5 ft 9 in 5 ft 9 in Weight: 338 lb 1 oz BMI 49.9 BP 132/76 H Intake Visit Reasons: 32 wk ob Chief Complaint: 32 wk OB Linoleum Printer Required: No Is patient in pain?: No [...] occupational status: employed and unemployed current occupation: [employer] current occupational exposures/hazards: No pets [...] 1-2 times per week duration: 30-45 minutes/day parul/adventism: None seatbelt use: always do you feel safe at home: Yes additional social history: - 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 Date Name GA/Weeks Outcome Route Bth Weight Gen Labor Lgth Anesthesia Del Locatn Provider FOB 04/14/21 Tim[place] 41 live - full term 8#2oz Male epidural [facility] GP Froilan Delivery Date: 04/14/21 Last [...] cons with (more content not included)... Normal [facility] - Chemistry and C hemistry - challengeOrdered By: Aye Mcdowell on 02-07-2025 Glucose Ql (U) Negative [facility] - UrinalysisOrder ed By: Aye Mcdowell on 02-07-2025 Protein Ql (U) Negative [facility] Registered Public Health Nurse Office Visit Reporton 02-07-2025 Registered Public Health Nurse Office Visit Report [facility] [address], [address] [place] [address] OFFICE VISIT Date of Service: 02/07/25 MR#: [id number] Acct: [id number] Name: DEMETRIUS FERNANDES Rep #: [id number] : 1990 Provider: Dr. Aye Morel DO Age/Sex: 34/F Location: [facility] Status: Signed Intake Vital Signs 12/16/24 09:30 01/24/25 08:40 02/07/25 09:25 02/07/25 09:25 Height 5 ft 9 in 5 ft 9 in 5 ft 9 in 5 ft 9 in Weight: 332 lb BMI 49.0 BP 107/71 Intake Visit Reasons: 30wk ob Linoleum Printer Required: No Is patient in pain?: No [...] occupational status: employed and unemployed current occupation: [employer] current occupational exposures/hazards: No pets [...] 1-2 times per week duration: 30-45 minutes/day parul/adventism: None seatbelt use: always do you feel safe at home: Yes additional social history: - 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 Date Name GA/Weeks Outcome Route Bth Weight Infant Gen Labor Lgth Anesthesia Del [facility] Provider FOB 04/14/21 Timmy 41 live - full term 8#2oz Male epidural [facility] GP Froilan Delivery Date: 04/14/21 Last [...] -???- K (more content not included)... Normal [facility] Gestational GTT 3HR 100gon 0 01-25-2025 GEST GTT 100gm Normal [facility] Comment on above: Order Comment: Y [...] 01/25/25 1025 Performed By: #### L 500.4710 #### [facility] [address] [place], [place], [id number] Quantitative serum or plasma 3 hour gestational glucose tolerance panelOrdered By: Erick Rodriguez on 01-25-2025 Glucose tolerance 3 hours gestational panel See comment [facility] Comment on above: FASTING 91 Col: 01/11 12/05 0649GLUCOSE TOLERANCE TEST FOR Reference Interval GESTATIONAL DIABETES Fasting <105 mg/dL 1 hour <190 mg/dl 2 hour <165 mg/dl 3 hour <145 mg/dl 1 HR GLU 151 Col: 01/25/25 0829 2 HR GLU 126 Col: 01/25/25 0926 3 HR GLU 117 Col: 01/25/25 1025 Absolute lymphocyte countOrd ered By: Erick Smithtings on 01-24-2025 Lymphocytes Auto (Unsp spec) [#/Vol] 2.28 10*3/uL 0.83-4.51 [facility] Absolute neutrophil countOrd ered By: Erick Smithtings on 01-24-2025 Neutrophils (Bld) [#/Vol] 10.3 10*3/uL High 2.0-7.7 [facility] Automated lymphocyte count a s percentage of total leukocytesOrdered By: Erick Coleharbor on 01-24-2025 Lymphocytes/100 WBC Auto (Unsp spec) 16.6 % Low 19-41 [facility] Basophil percentageOrdered B y: Erick Coleharbor on 01-24-2025 Basophils/100 WBC (Bld) 0.3 % 0-1 [facility] CBC W/Diff, Automatedon 01-11 Absolute Lymph 2.28 X10 3/uL Normal 0.83-4.51 [facility] Comment on above: Performed By: #### L 509.8002 #### [facility] [address] [place], [place], [id number] Absolute Neut 10.3 X10 3/uL High 2.0-7.7 [facility] Comment on above: Performed By: #### L 509.8002 #### [facility] [address] [place], [place], [id number] Basophils/100 WBC (Bld) 0.3 % Normal 0-1 [facility] Comment on above: Performed By: #### L 509.8002 #### [facility] [address] [place], [address] Eosinophils/100 WBC (Bld) 0.9 % Normal 0-5 [facility] Comment on above: Performed By: #### L 509.8002 #### [facility] [address] [place], [address] Erythrocyte distribution width (RBC) [Ratio] 15.7 % High 11.6-14.6 [facility] Comment on above: Performed By: #### L 509.8002 #### [facility] [address] [place], [address] Hematocrit (Bld) [Volume fraction] 33.4 % Low 37-47 [facility] Comment on above: Performed By: #### L 509.8002 #### [facility] [address] [place], [address] Hemoglobin (Bld) [Mass/Vol] 10.6 g/dL Low 12.0-15.0 [facility] Comment on above: Performed By: #### L 509.8002 #### [facility] [address] [place], [address] IG% 0.700 Normal 0.0-0.9 [facility] Comment on above: Result Comment: IG% - Immature Granulocytes (promyelocytes, myelocytes and metamyelocytes) > 1% indicates that a LEFT SHIFT is Present. Performed By: #### L 509.8002 #### [facility] [address] [place], [address] Lymphocytes/100 WBC (Bld) 16.6 % Low 19-41 [facility] Comment on above: Performed By: #### L 509.8002 #### [facility] [address] [place], [address] MCH (RBC) [Entitic mass] 27.1 pg Normal 27.0-32.0 [facility] Comment on above: Performed By: #### L 509.8002 #### [facility] [address] [place], [address] MCHC (RBC) [Mass/Vol] 31.7 g/dL Low 32-36 [facility] Comment on above: Performed By: #### L 509.8002 #### [facility] [address] [place], [address] MCV (RBC) [Entitic vol] 85.4 fL Normal 81-99 [facility] Comment on above: Performed By: #### L 509.8002 #### [facility] [address] [place], [address] Monocytes/100 WBC (Bld) 6.5 % Normal 0-10 [facility] Comment on above: Performed By: #### L 509.8002 #### [facility] [address] [place], [address] Neutrophils/100 WBC (Bld) 75.0 % High 47-70 [facility] Comment on above: Performed By: #### L 509.8002 #### [facility] [address] [place], [address] Nucleated RBC (Bld) [#/Vol] 0 10*3/uL Normal 0-5 [facility] Comment on above: Performed By: #### L 509.8002 #### [facility] [address] [place], [address] Platelet mean volume (Bld) [Entitic vol] 10.7 fL Normal 6.2-12.0 [facility] Comment on above: Performed By: #### L 509.8002 #### [facility] [address] [place], [address] Platelets (Bld) [#/Vol] 262 10*3/uL Normal 150-450 [facility] Comment on above: Performed By: #### L 509.8002 #### [facility] [address] [place], [address] RBC (Bld) [#/Vol] 3.91 10*6/uL Low 4.2-5.4 [facility] Comment on above: Performed By: #### L 509.8002 #### [facility] [address] [place], [address] RDW SD 48.2 fl High 35.1-43.9 [facility] Comment on above: Performed By: #### L 509.8002 #### [facility] [address] [place], [address] WBC (Bld) [#/Vol] 13.8 10*3/uL High 4.4-11.0 [facility] Comment on above: Performed By: #### L 509.8002 #### [facility] [address] [place], [address] Eosinophil percentageOrdered By: Erick Rodriguez on 01-24-2025 Eosinophils/100 WBC (Bld) 0.9 % 0-5 [facility] Erythrocyte distribution wid th ratioOrdered By: Erick Rodriguez on 01-24-2025 Erythrocyte distribution width (RBC) [Ratio] 15.7 % High 11.6-14.6 [facility] Erythrocyte distribution wid th standard deviationOrdered By: Erick Rodriguez on 01-24-2025 Erythrocyte distribution width (RBC) [Ratio] 48.2 fl High 35.1-43.9 [facility] Glucose Challenge Gest 1H 50 ender 01-24-2025 GLU GEST 50g 1H 150 mg/dL High 70-140 [facility] Comment on above: Performed By: #### L 509.8002 #### [facility] [address] [place], [address] Glucose measurement at 2 lauro rs post-dose gestational glucose tolerance testOrdered By: Erick Rodriguez on 01-24-2025 Glucose [Mass/Vol] 150 mg/dL High 70-140 [facility] HIVon 01-24-2025 HIV Non-Reactive Normal Nonreactive [facility] Comment on above: Result Comment: Non- Reactive Reactive Repeatedly reactive samples must be confirmed according to CDC recommended confirmatory algorithms. The subresults for either HIVAG or AHIV can be used as an aid in the selection of the confirmation algorithm for reactive samples. Send out specimens with Reactive results to [facility] for confirmation. Order the HIV antibody detection and differentiation: lc#[id number] Performed By: #### L 509.8002 #### [facility] [address] [place], [place], [address] Hematocrit Auto (Bld) [Volum e fraction]Ordered By: Erick Rodriguez on 01-24-2025 Hematocrit (Bld) [Volume fraction] 33.4 % Low 37-47 [facility] Hemoglobin measurementOrdere d By: Erick Rodriguez on 01-24-2025 Hemoglobin (Bld) [Mass/Vol] 10.6 g/dL Low 12.0-15.0 [facility] Immature granulocytes/100 WB C Auto (Bld)Ordered By: Erick Rodriguez on 01-24-2025 Immature granulocytes/100 WBC (Bld) 0.700 % 0.0-0.9 [facility] Comment on above: IG% - Immature Granu locytes (promyelocytes, myelocytes and metamyelocytes) > 1% indicates that a LEFT SHIFT is Present. Laboratory - Chemistry and C hemistry - challengeOrdered By: Erick Rodriguez on 01-24-2025 Glucose Ql (U) Negative [facility] - UrinalysisOrder ed By: Erick Rodriguez on 01-24-2025 Protein Ql (U) Negative [facility] MCV (mean corpuscular volume ) determinationOrdered By: Erick Rodriguez on 01-24-2025 MCV (RBC) [Entitic vol] 85.4 fL 81-99 [facility] Mean corpuscular hemoglobin (MCH) determinationOrdered By: Erick Rodriguez on 01-24-2025 MCH (RBC) [Entitic mass] 27.1 pg 27.0-32.0 [facility] Mean corpuscular hemoglobin concentration (MCHC) determinationOrdered By: Erick Rodriguez on 01-24-2025 MCHC (RBC) [Mass/Vol] 31.7 g/dL Low 32-36 [facility] Mean platelet volume determi nationOrdered By: Erick Rodriguez on 01-24-2025 Platelet mean volume (Bld) [Entitic vol] 10.7 fL 6.2-12.0 [facility] Monocyte percentageOrdered B y: Erick Rodriguez on 01-24-2025 Monocytes/100 WBC (Bld) 6.5 % 0-10 [facility] Neutrophil percentageOrdered By: Erick Rodriguez on 01-24-2025 Neutrophils/100 WBC (Bld) 75.0 % High 47-70 [facility] No Panel InformationOrdered By: Erick Rodriguez on 01-24-2025 HIV (1&2) Antibody Non-Reactive Nonreactive [facility] Comment on above: Non-ReactiveReactive Repeatedly reactive samples must be confirmed according to CDC recommended confirmatory algorithms. The subresults for either HIVAG or AHIV can be used as an aid in the selection of the confirmation algorithm for reactive samples.Send out specimens with Reactive results to [facility] for confirmation.Order the HIV antibody detection and differentiation: #[id number] Nucleated red blood cell per centageOrdered By: Erick Rodriguez on 01-24-2025 Nucleated RBC/100 WBC (Bld) [Ratio] 0 % 0-5 [facility] Registered Public Health Nurse Office Visit Reporton 01-24-2025 Registered Public Health Nurse Office Visit Report [facility] [address], [address] [place] [address] OFFICE VISIT Date of Service: 01/24/25 MR#: [id number] Acct: [id number] Name: DEMETRIUS FERNANDES Rep #: [id number] : 1990 Provider: MARY JANE godoy Age/Sex: 34/F Location: [facility] Status: Signed Intake Vital Signs 12/16/24 09:30 01/12/25 09:43 01/24/25 08:30 01/24/25 08:40 Height 5 ft 9 in 5 ft 9 in 5 ft 9 in 5 ft 9 in Weight: 331 lb 2 oz BMI 48.9 BP 124/72 H Intake Visit Reasons: 28wk ob/glucose/rhogam Chief Complaint: 28 Week OB/Rhogam Linoleum Printer Required: No Is patient in pain?: No [...] occupational status: employed and unemployed current occupation: [employer] current occupational exposures/hazards: No pets [...] 1-2 times per week duration: 30-45 minutes/day parul/adventism: None seatbelt use: always do you feel [...] live - full term 8#2oz Male epidural [facility] GP Froilan Delivery Date: 04/14/21 Last [...] dates. ac (more content not included)... Normal [facility] Platelet countOrdered By: Lalo Rodriguez on 01-24-2025 Platelets (Bld) [#/Vol] 262 10*3/uL 150-450 [facility] RBC Auto (Bld) [#/Vol]Ordere d By: Erick Rodriguez on 01-24-2025 RBC (Bld) [#/Vol] 3.91 10*6/uL Low 4.2-5.4 [facility] Syphilis Antibodieson 2024 Syphilis Abs Non-Reactive Normal Nonreactive [facility] Comment on above: Performed By: #### L 954.5660 #### [facility] [address] [place], [place], [id number] Type AND Screenon 01-24-2025 ABO and Rh group Nom (Bld) Blood group O Rh(D) negative Normal [facility] Comment on above: Order Comment: PN Performed By: #### L 256.8005 #### [facility] [address] [place], [place], [id number] White blood cell (WBC) count Ordered By: Erick Rodriguez on 01-24-2025 WBC (Bld) [#/Vol] 13.8 10*3/uL High 4.4-11.0 [facility] - Chemistry and C hemistry - challengeOrdered By: Erick Rodriguez on 01-12-2025 Glucose Ql (U) Negative [facility] - UrinalysisOrder ed By: Erick Rodriguez on 01-12-2025 Protein Ql (U) Negative [facility] Registered Public Health Nurse Office Visit Reporton 01-12-2025 Registered Public Health Nurse Office Visit Report [facility]'s [address], [address] [place] [address] OFFICE VISIT Date of Service: 01/12/25 MR#: [id number] Acct: [id number] Name: DEMETRIUS FERNANDES Rep #: [id number] : 1990 Provider: MARY JANE godoy Age/Sex: 34/F Location: [facility] Status: Signed Intake Vital Signs 11/17/24 08:40 12/16/24 09:30 01/12/25 09:43 Height 5 ft 9 in 5 ft 9 in 5 ft 9 in Weight: 328 lb 8 oz BMI 48.4 BP 130/82 H Intake Visit Reasons: 26 wk ob Chief Complaint: 26 Week OB Linoleum Printer Required: No Is patient in pain?: No [...] occupational status: employed and unemployed current occupation: [employer] current occupational exposures/hazards: No pets and [...] 1-2 times per week duration: 30-45 minutes/day parul/adventism: None seatbelt use: always do you feel safe at home: Yes additional social history: - 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 Date Name GA/Weeks Outcome Route Bth Weight Gen Labor Lgth Anesthesia Del Locatn Provider FOB 04/14/21 [place] 41 live - full term 8#2oz Male epidural [facility] GP Froilan Delivery Date: 04/14/21 Last [...] with dates (more content not included)... Normal [facility] - Chemistry and C hemistry - challengeOrdered By: Fiordaliza Zhong on 12-16-2024 Glucose Ql (U) Negative [facility] - UrinalysisOrder ed By: Fiordaliza Zhong on 12-16-2024 Protein Ql (U) Negative [facility] Registered Public Health Nurse Office Visit Reporton 12-16-2024 Registered Public Health Nurse Office Visit Report [facility] [address], [address] [place] [address] OFFICE VISIT Date of Service: 12/16/24 MR#: [id number] Acct: [id number] Name: DEMETRIUS FERNANDES Rep #: [id number] : 1990 Provider: Dr. Fiordaliza leong MD Age/Sex: 34/F Location: [facility] Status: Signed Intake Vital Signs 09/23/24 09:08 [...] occupational status: employed and unemployed current occupation: [employer] current occupational exposures/hazards: No pets [...] 1-2 times per week duration: 30-45 minutes/day parul/adventism: None seatbelt use: always do you feel safe at home: Yes additional social history: - Froilan [employer] @ [facility] 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 Date Name GA/Weeks Outcome Route Bth Weight Infant Gen Labor Lgth Anesthesia Del Locatn Provider FOB 04/14/21 [place] 41 live - full term 8#2oz Male epidural [facility] GP Froilan Delivery Date: 04/14/21 Last [...] this . (more content not included)... Normal [facility] L3410.9992on 11-23-2024 [facility] Misc. COMMENT Normal . [facility] Comment on above: Order Comment: Speci men Comment: SEE END OF THIS REPORT FOR CORRECTED REPORT COMMENTS [id number] msAFP SERUM RT Result Comment: Test Ordered: [id number] AFP, Serum, Open Spina Bifida Results Comment TG Reference Range: . The MOM and risk factors of this report have been modified based on new information supplied to us by the client or their designated personal service representative. The Weight was changed from [...] Customer Services to discuss available options. The [employer] recommends amniocentesis [...] TG Reference Range: . Candice Simmons, Ph.D., [facility] Director References: Available Upon Request. Multiples Of Median Cutoffs For AFP Elevations Worrell 2.5 Black 2.8 IDD 2.0 Twins 4.5 Abbreviation Definitions IDD - Insulin Dep Diabetes OSBR - Open Spina Bifida Risk For further inquiries contact [facility] at [phone]. This test was developed and its performance characteristics determined by [employer]. It has not been cleared or approved by the Food and Drug Administration. Performed at: - [facility] [place], [place] [id number] Litigation Paralegal: Cara Lanza [facility], Phone: [phone] Performed at: - [address] [id number] Litigation Paralegal: Jake Ferreira PhD, Phone: [phone] AMENDED REPORT 11/23/24 1609 [facility]. previously reported as: COMMENT Test Ordered: [id number] AFP, Serum, Open Spina Bifida Results Report [...] TG Reference Range: . Candice Simmons, Ph.D., [facility] Director References: Available Upon Request. Multiples Of Median Cutoffs For AFP Elevations Worrell 2.5 Black 2.8 IDD 2.0 Twins 4.5 Abbreviation Definitions IDD - Insulin Dep Diabetes OSBR - Open Spina Bifida Risk For further inquiries contact [employer] [facility] at [phone]. This test was developed and its performance characteristics determined by [email or web address]. It has not been cleared or approved by the Food and Drug Administration. Performed at: - [facility] [address] [facility], [place], [place] [id number] Litigation Paralegal: Cara Lanza [facility], Phone: [phone] Performed at (more content not included)... Performed By: #### L 3410.9992 #### [facility] [address] [place], [place], [address] Laboratory - Chemistry and C hemistry - challengeOrdered By: Erick Rodriguez on 11-17-2024 Glucose Ql (U) Negative [facility] - UrinalysisOrder ed By: Erick Rodriguez on 11-17-2024 Protein Ql (U) Negative [facility] Registered Public Health Nurse Office Visit Reporton 11-17-2024 Registered Public Health Nurse Office Visit Report [facility] [address], [address] [place] [address] OFFICE VISIT Date of Service: 11/17/24 MR#: [id number] Acct: [id number] Name: DEMETRIUS FERNANDES Rep #: [id number] : 1990 Provider: MARY JANE godoy Age/Sex: 34/F Location: [facility] Status: Signed Intake Vital Signs 09/23/24 09:08 10/22/24 10:18 11/17/24 08:40 Height 5 ft 9 in 5 ft 9 in 5 ft 9 in Weight: 317 lb 8 oz BMI 46.8 BP 126/80 H Intake Visit Reasons: 18wk ob Chief Complaint: 18 Week OB Linoleum Printer Required: No Is patient in pain?: No [...] occupational status: employed and unemployed current occupation: [employer] current occupational exposures/hazards: No pets and [...] 1-2 times per week duration: 30-45 minutes/day parul/adventism: None seatbelt use: always do you feel safe at home: Yes additional social history: - 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 Date Name GA/Weeks Outcome Route Bth Weight [facility]21 [place] 41 live - full term 8#2oz Male epidural [facility] GP Froilan Delivery Date: 04/14/21 Last [...] NIPT-very concerned (more content not included)... Normal [facility] - Chemistry and C hemistry - challengeOrdered By: Aye Mcdowell on 10-22-2024 Glucose Ql (U) Negative [facility] - UrinalysisOrder ed By: Aye Mcdowell on 10-22-2024 Protein Ql (U) Negative [facility] Registered Public Health Nurse Office Visit Reporton 10-22-2024 Registered Public Health Nurse Office Visit Report [facility] [address], [address] [place] [address] OFFICE VISIT Date of Service: 10/22/24 MR#: [id number] Acct: [id number] Name: DEMETRIUS FERNANDES Rep #: [id number] : 1990 Provider: Dr. Aye Morel, Age/Sex: 34/F Location: [facility] Status: Signed Intake Vital Signs 04/13/21 20:08 09/23/24 09:08 10/22/24 10:18 10/22/24 10:18 Height 5 ft 9 in 5 ft 9 in 5 ft 9 in 5 ft 9 in Weight: 312 lb 2 oz BMI 46.0 BP 119/76 Intake Visit Reasons: 14wk OB Linoleum Printer Required: No Is patient in pain?: No [...] occupational status: employed and unemployed current occupation: [employer] current occupational exposures/hazards: No pets and [...] 1-2 times per week duration: 30-45 minutes/day parul/adventism: None seatbelt use: always do you feel safe at home: Yes additional social history: - 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 Date Name GA/Weeks Outcome Route Bth Weight Infant Gen Labor Lgth Anesthesia Del Locatn Provider FOB 04/14/21 [place] 41 live - full term 8#2oz Male epidural [facility] GP Froilan Delivery Date: 04/14/21 Last [...] NIPT-very concerned (more content not included)... Normal [facility] Miscellaneous procedureOrder ed By: Aye Mcdowell on 10-04-2024 Miscellaneous Test Comment SEE SCANNED REPORT [facility] NATERAon 10-04-2024 NATURA SEE SCANNED REPORT Normal [facility] Comment on above: Performed By: #### L 900.0098 #### [facility] [address] [place], [place], [address] PAP IG HPV APTIMA 16/18,45on 09-28-2024 ADEQ Comment Normal . [facility] Comment on above: Order Comment: Speci men Comment: [id number] Specimen Comment: Source.............Cervix;Endocervix Specimen Comment: LMP / Prev Treat...[id number] Specimen Comment: Other.............. Specimen Comment: No. of containers..01 ThinPrep Vial Result Comment: Sati sfactory for evaluation. No endocervical component is identified. An endocervical component is not commonly seen in the patient. Performed By: #### L 7000.1800, L7400.0280, M100.2200 #### [facility] [address] [place], [place], [address] COMM . Normal . [facility] Comment on above: Order Comment: Speci men Comment: [id number] Specimen Comment: Source.............Cervix;Endocervix Specimen Comment: LMP / Prev Treat...[id number] Specimen Comment: Other.............. Specimen Comment: No. of containers..01 ThinPrep Vial Performed By: #### L 7000.1800, L7400.0280, M100.2200 #### [facility] [address] [place], [place], [id number] COMMENT Comment Normal . [facility] Comment on above: Order Comment: Speci men Comment: [id number] Specimen Comment: Source.............Cervix;Endocervix Specimen Comment: LMP / Prev Treat...[id number] Specimen Comment: Other.............. Specimen Comment: No. of containers..01 ThinPrep Vial Result Comment: This liquid based ThinPrep(R) pap test was screened with the use of an image guided system. Performed By: #### L 7000.1800, L7400.0280, M100.2200 #### [facility] [address] [place], [place], [id number] DIAG Comment Normal . [facility] Comment on above: Order Comment: Speci men Comment: [id number] Specimen Comment: Source.............Cervix;Endocervix Specimen Comment: LMP / Prev Treat...[id number] Specimen Comment: Other.............. Specimen Comment: No. of containers..01 ThinPrep Vial Result Comment: NEGA TIVE FOR INTRAEPITHELIAL LESION OR MALIGNANCY. Performed By: #### L 7000.1800, L7400.0280, M100.2200 #### [facility] [address] [place], [place], [id number] HPV APTIMA, HR Negative Normal Negative [facility] Comment on above: Order Comment: Speci men Comment: [id number] Specimen Comment: Source.............Cervix;Endocervix Specimen Comment: LMP / Prev Treat...[id number] Specimen Comment: Other.............. Specimen Comment: No. of containers..01 ThinPrep Vial Result Comment: This nucleic acid amplification test detects fourteen high- risk HPV types (16,18,31,33,35,39,45,51,52,56,58,59,66,68) without differentiation. Performed By: #### L 7000.1800, L7400.0280, M100.2200 #### [facility] [address] [place], [place], [address] HPV Sraah Rfx Comment Normal . [facility] Comment on above: Order Comment: Speci men Comment: [id number] Specimen Comment: Source.............Cervix;Endocervix Specimen Comment: LMP / Prev Treat...[id number] Specimen Comment: Other.............. Specimen Comment: No. of containers..01 ThinPrep Vial Result Comment: Crit mellissa not met, HPV Genotype not performed. Performed at: - [address] [id number] Litigation Paralegal: Silvia Irwin MD, Phone: [phone] Performed at: = - [address] [id number] Litigation Paralegal: Silvia Irwin MD, Phone: [phone] Performed By: #### L 7000.1800, L7400.0280, M1.0 #### [facility] [address] [facility] [place], [place], [address] PAPSMR Comment Normal . [facility] Comment on above: Order Comment: Speci men Comment: [id number] Specimen Comment: Source.............Cervix;Endocervix Specimen Comment: LMP / Prev Treat...[id number] Specimen Comment: Other.............. Specimen Comment: No. of [...] reports do occur. Performed By: #### L 7000.1800, L7400.0280, M100.2200 #### [facility] [address] [place], [address] PERFORM Comment Normal . [facility] Comment on above: Order Comment: Speci men Comment: [id number] Specimen Comment: Source.............Cervix;Endocervix Specimen Comment: LMP / Prev Treat...[id number] Specimen Comment: Other.............. Specimen Comment: No. of containers..01 ThinPrep Vial Result Comment: Tammy Horan, Sales Research Analyst (ASCP) Performed By: #### L 7000.1800, L7400.0280, M100.2200 #### [facility] [address] [place], [address] Chlamydia/GC ARIAN aptimaon CHLAMY,NUC ACID Negative Normal Negative [facility] Comment on above: Performed By: #### L 7000.1800, L7400.0280, M100.2200 #### [facility] [address] [place], [address] GC BY NUC ACID Negative Normal Negative [facility] Comment on above: Result Comment: Perf ormed at: =G - [facility] [address] [id number] Litigation Paralegal: Silvia Irwin MD, Phone: [phone] Performed By: #### L 7000.1800, L7400.0280, M100.2200 #### [facility] [address] [place], [address] Urine Cultureon 09-24-2024 URC Culture exhibits no growth. Normal [facility] Comment on above: Performed By: #### L 7000.1800, L7400.0280, M100.2200 #### [facility] [address] [place], [address] Absolute lymphocyte countOrd ered By: Greg Rich on 09-23-2024 Lymphocytes Auto (Unsp spec) [#/Vol] 2.53 10*3/uL 0.83-4.51 [facility] Absolute neutrophil countOrd ered By: Greg Rich on 09-23-2024 Neutrophils (Bld) [#/Vol] 8.7 10*3/uL High 2.0-7.7 [facility] Automated lymphocyte count a s percentage of total leukocytesOrdered By: Greg Rich on 09-23-2024 Lymphocytes/100 WBC Auto (Unsp spec) 20.5 % 19-41 [facility] Basophil percentageOrdered B y: rGeg Rich on 09-23-2024 Basophils/100 WBC (Bld) 0.5 % 0-1 [facility] C. trachomatis rRNA ARIAN+prob e Ql (Unsp spec)Ordered By: Greg Rich on 09-23-2024 Chlamydia DNA (ARIAN) Negative Negative [facility] CBC W/Diff, Automatedon 09-11 Absolute Lymph 2.53 X10 3/uL Normal 0.83-4.51 [facility] Comment on above: Performed By: #### L 100.0500 #### [facility] [address] [place], [address] Absolute Neut 8.7 X10 3/uL High 2.0-7.7 [facility] Comment on above: Performed By: #### L 100.0500 #### [facility] [address] [place] [place], [address] Basophils/100 WBC (Bld) 0.5 % Normal 0-1 [facility] Comment on above: Performed By: #### L 100.0500 #### [facility] [address] [place], [address] Eosinophils/100 WBC (Bld) 1.2 % Normal 0-5 [facility] Comment on above: Performed By: #### L 100.0500 #### [facility] [address] [place], [address] Erythrocyte distribution width (RBC) [Ratio] 14.0 % Normal 11.6-14.6 [facility] Comment on above: Performed By: #### L 100.0500 #### [facility] [address] [place], [address] Hematocrit (Bld) [Volume fraction] 36.9 % Low 37-47 [facility] Comment on above: Performed By: #### L 100.0500 #### [facility] [address] [place], [address] Hemoglobin (Bld) [Mass/Vol] 12.0 g/dL Normal 12.0-15.0 [facility] Comment on above: Performed By: #### L 100.0500 #### [facility] [address] [place], [address] IG% 0.300 Normal 0.0-0.9 [facility] Comment on above: Result Comment: IG% - Immature Granulocytes (promyelocytes, myelocytes and metamyelocytes) > 1% indicates that a LEFT SHIFT is Present. Performed By: #### L 100.0500 #### [facility] [address] [place] [place], [address] Lymphocytes/100 WBC (Bld) 20.5 % Normal 19-41 [facility] Comment on above: Performed By: #### L 100.0500 #### [facility] [address] [place], [address] MCH (RBC) [Entitic mass] 27.3 pg Normal 27.0-32.0 [facility] Comment on above: Performed By: #### L 100.0500 #### [facility] [address] [place], [address] MCHC (RBC) [Mass/Vol] 32.5 g/dL Normal 32-36 [facility] Comment on above: Performed By: #### L 100.0500 #### [facility] [address] [place], [address] MCV (RBC) [Entitic vol] 83.9 fL Normal 81-99 [facility] Comment on above: Performed By: #### L 100.0500 #### [facility] [address] [place], [address] Monocytes/100 WBC (Bld) 7.0 % Normal 0-10 [facility] Comment on above: Performed By: #### L 100.0500 #### [facility] [address] [place], [address] Neutrophils/100 WBC (Bld) 70.5 % High 47-70 [facility] Comment on above: Performed By: #### L 100.0500 #### [facility] [address] [place], [address] Nucleated RBC (Bld) [#/Vol] 0 10*3/uL Normal 0-5 [facility] Comment on above: Performed By: #### L 100.0500 #### [facility] [address] [place], [address] Platelet mean volume (Bld) [Entitic vol] 10.7 fL Normal 6.2-12.0 [facility] Comment on above: Performed By: #### L 100.0500 #### [facility] [address] [place], [address] Platelets (Bld) [#/Vol] 294 10*3/uL Normal 150-450 [facility] Comment on above: Performed By: #### L 100.0500 #### [facility] [address] [place], [address] RBC (Bld) [#/Vol] 4.40 10*6/uL Normal 4.2-5.4 [facility] Comment on above: Performed By: #### L 100.0500 #### [facility] [address] [place], [address] RDW SD 43.3 fl Normal 35.1-43.9 [facility] Comment on above: Performed By: #### L 100.0500 #### [facility] [address] [place], [address] WBC (Bld) [#/Vol] 12.3 10*3/uL High 4.4-11.0 [facility] Comment on above: Performed By: #### L 100.0500 #### [facility] [address] [place], [address] Cervical or vaginal specimen microscopic examination by liquid based cytology (reportOrdered By: Greg Rich on 09-23-2024 Cytology report Cyto stain.thin prep Doc (Cvx/Vag) Comment . [facility] Comment on above: Criteria not met, HP V Genotype not performed.Performed at: - [address] [id number] Director: Silvia Irwin MD, Phone: [phone] at: =[address] [id number] Director: Silvia Irwin MD, Phone: [phone] Cervical or vagninal specime n microscopic examination by cytology stain (reported asOrdered By: Greg Rich on 09-23-2024 Cytology report Cyto stain Doc (Cvx/Vag) Comment . [facility] Comment on above: The Pap smear [...] rRNA ARIAN+probe Ql (Unsp spec) Negative Negative [facility] Auto Body Repair Estimator Cyto stain Nom (C vx/Vag) [ID]Ordered By: Greg Rich on 09-23-2024 Pap Smear Performed By Comment . [facility] Comment on above: Jorge A Art totechnologist (ASCP) Cytology report Cyto stain D oc (Cvx/Vag)Ordered By: Greg Rich on 09-23-2024 Thin Prep Pap Smear Comment . [facility] Comment on above: The Pap smear [...] 09-23-2024 HPV Genotype Special Info Comment . [facility] Comment on above: Criteria not met, HP V Genotype not performed.Performed at: - [facility] [id number] Director: Silvia Irwin MD, Phone: [phone] at: = - [facility] [address] [id number] Director: Silvia Irwin MD, Phone: [phone] Detection in cervical specim en of any of human papilloma virus (HPV) 16, 18, 31, 33,Ordered By: Greg Rich on 09-23-2024 HPV 16+18+31+33+35+39+45+51+ 52+56+58+59+66+68 DNA Probe+sig amp Ql (Cvx) Negative Negative [facility] Comment on above: This nucleic acid am plification test detects fourteen high-risk HPV types (16,18,31,33,35,39,45,51,52,56,58,59,66,68)without differentiation. Eosinophil percentageOrdered By: Greg Rich on 09-23-2024 Eosinophils/100 WBC (Bld) 1.2 % 0-5 [facility] Erythrocyte distribution wid th ratioOrdered By: Greg Rich on 09-23-2024 Erythrocyte distribution width (RBC) [Ratio] 14.0 % 11.6-14.6 [facility] Erythrocyte distribution wid th standard deviationOrdered By: Greg Rich on 09-23-2024 Erythrocyte distribution width (RBC) [Entitic vol] 43.3 fL 35.1-43.9 [facility] Erythrocyte distribution width (RBC) [Ratio] 43.3 fl 35.1-43.9 [facility] HBV surface Ag Ql (S)Ordered By: Greg Rich on 09-23-2024 Hepatitis B Surface Antigen Non-Reactive Nonreactive [facility] Comment on above: Reactive: Presumptiv e evidence of HBV. Repeatedly reactive samples must be confirmed using a neutralization test (CmyCasas HBsAg Confirmatory Test)Non-Reactive: HBsAg not detected; does not exclude the possibility of exposure to HBV HPV 16+18+31+33+35+39+45+51+ 52+56+58+59+66+68 DNA Probe+sig amp Ql (Cvx)Ordered By: Greg Rich on 09-23-2024 Human Papillomavirus High Risk Negative Negative [facility] Comment on above: This nucleic acid am plification test detects fourteen high-risk HPV types (16,18,31,33,35,39,45,51,52,56,58,59,66,68)without differentiation. Hematocrit Auto (Bld) [Volum e fraction]Ordered By: Greg Rich on 09-23-2024 Hematocrit (Bld) [Volume fraction] 36.9 % Low 37-47 [facility] Hemoglobin A1con 09-23-2024 HbA1c (Bld) [Mass fraction] 5.6 % Low <=5.6 [facility] Comment on above: Performed By: #### L 509.8002 #### [facility] [address] [place] [address], [address] Hemoglobin A1c percentageOrd ered By: Greg Rich on 09-23-2024 HbA1c (Bld) [Mass fraction] 5.6 % Low >5.7 [facility] Hemoglobin measurementOrdere d By: Greg Rich on 09-23-2024 Hemoglobin (Bld) [Mass/Vol] 12.0 g/dL 12.0-15.0 [facility] Hepatitis C antibodyOrdered By: Greg Rich on 09-23-2024 Hepatitis C Antibody Non-Reactive Nonreactive [facility] Comment on above: Reactive: Presumptiv e evidence of antibodies to HCV. Follow CDC recommendations for supplemental testing.Non-Reactive: Antibodies to HCV were not detected; does not exclude the possibility of exposure to HCVReactive Results are presumptive evidence of antibodies to HCV. Follow CDC recommendations for supplemental testing.Order confirmation testing: HCV Quant by PCR testing - HCVPCR #[id number] Non Reactive: < 0.8 Equivocal: >/= 0.8 to < 1.0 Reactive: >/= 1.0The CDC requires that a reactive/equivocal HCV antibody result be sent out for confirmation. HCV Quant by PCR testing. Image-guided ThinPrep PapOrd ered By: Greg Rich on 09-23-2024 Pap Smear Note Comment . [facility] Comment on above: This liquid based Th inPrep(R) pap test was screened withthe use of an image guided system. Image-guided liquid-based Pa pOrdered By: Greg Rich on 09-23-2024 Pap Smear Diagnosis Comment . [facility] Comment on above: NEGATIVE FOR INTRAEP ITHELIAL LESION OR MALIGNANCY. Immature granulocytes/100 WB C Auto (Bld)Ordered By: Greg Rich on 09-23-2024 Immature granulocytes/100 WBC (Bld) 0.300 % 0.0-0.9 [facility] Comment on above: IG% - Immature Granu locytes (promyelocytes, myelocytes and metamyelocytes) > 1% indicates that a LEFT SHIFT is Present. L3890.6006on 09-23-2024 HIV Non-Reactive Normal Nonreactive [facility] Comment on above: Result Comment: Non- Reactive Reactive Repeatedly reactive samples must be confirmed according to CDC recommended confirmatory algorithms. The subresults for either HIVAG or AHIV can be used as an aid in the selection of the confirmation algorithm for reactive samples. Send out specimens with Reactive results to [facility] for confirmation. Order the HIV antibody detection and differentiation: [id number] Performed By: #### L 100.0500 #### [facility] [address] [place], [address] L3890.6102on 09-23-2024 HEP B Surf Ag Non-Reactive Normal Nonreactive [facility] Comment on above: Result Comment: Reac tive: Presumptive evidence of HBV. Repeatedly reactive samples must be confirmed using a neutralization test ([employer]ys HBsAg Confirmatory Test) Non-Reactive: HBsAg not detected; does not exclude the possibility of exposure to HBV Performed By: #### L 100.0500 #### [facility] [address] [facility] [place], [address] L3890.6301on 09-23-2024 Hepatitis C Ab Non-Reactive Normal Nonreactive [facility] Comment on above: Result Comment: Reac tive: Presumptive evidence of antibodies to HCV. Follow CDC recommendations for supplemental testing. Non-Reactive: Antibodies to HCV were not detected; does not exclude the possibility of exposure to HCV Reactive Results are presumptive evidence of antibodies to HCV. Follow CDC recommendations for supplemental testing. Order confirmation testing: HCV Quant by PCR testing - HCVPCR #[id number] Non Reactive: < 0.8 Equivocal: >/= 0.8 to < 1.0 Reactive: >/= 1.0 The CDC requires that a reactive/equivocal HCV antibody result be sent out for confirmation. HCV Quant by PCR testing. Performed By: #### L 100.0500 #### [facility] [address] [facility] [place], [address] L509.4006on 09-23-2024 Rubella IgG REAC Normal Nonreactive [facility] Comment on above: Result Comment: Anti body Result: Interpretation Non-Reactive: Non-Immune Reactive: Immune The following results were obtained with the Elecsys Rubella IgG assay. Results from assays of other manufacturers cannot be used interchangeably. Performed By: #### L 100.0500 #### [facility] [address] [facility] [place], [address] L509.8002on 09-23-2024 Syphilis Abs Non-Reactive Normal Nonreactive [facility] Comment on above: Performed By: #### L 100.0500 #### [facility] [address] [facility] [place], [address] Laboratory - CytologyOrdered By: Greg Rich on 09-23-2024 Auto Body Repair Estimator Cyto stain Nom (Cvx/Vag) [ID] Comment . [facility] Comment on above: Jorge A Art totechnologist (ASCP) Laboratory - Microbiology an d Antimicrobial susceptibilityOrdered By: Greg Rich on 09-23-2024 HBV surface Ag Ql (S) Non-Reactive Nonreactive [facility] Comment on above: Reactive: Presumptiv e evidence of HBV. Repeatedly reactive samples must be confirmed using a neutralization test (Ele[employer]ys HBsAg Confirmatory Test)Non-Reactive: HBsAg not detected; does not exclude the possibility of exposure to HBV Laboratory - Miscellaneous t estsOrdered By: Greg Rich on 09-23-2024 Service comment (Unsp spec) [Interp] . . [facility] Lymphocytes Auto (Unsp spec) [#/Vol]Ordered By: Greg Rich on 09-23-2024 Lymphocytes (Bld) [#/Vol] 2.53 10*3/uL 0.83-4.51 [facility] Lymphocytes/100 WBC Auto (Un sp spec)Ordered By: Greg Rich on 09-23-2024 Lymphocytes/100 WBC (Bld) 20.5 % 19-41 [facility] MCV (mean corpuscular volume ) determinationOrdered By: Greg Rich on 09-23-2024 MCV (RBC) [Entitic vol] 83.9 fL 81-99 [facility] Mean corpuscular hemoglobin (MCH) determinationOrdered By: Greg Rich on 09-23-2024 MCH (RBC) [Entitic mass] 27.3 pg 27.0-32.0 [facility] Mean corpuscular hemoglobin concentration (MCHC) determinationOrdered By: Greg Rich on 09-23-2024 MCHC (RBC) [Mass/Vol] 32.5 g/dL 32-36 [facility] Mean platelet volume determi nationOrdered By: Greg Rich on 09-23-2024 Platelet mean volume (Bld) [Entitic vol] 10.7 fL 6.2-12.0 [facility] Miscellaneous procedureOrder ed By: Greg Rich on 09-23-2024 Miscellaneous Test Comment SEE SCANNED REPORT [facility] Monocyte percentageOrdered B y: Greg Rich on 09-23-2024 Monocytes/100 WBC (Bld) 7.0 % 0-10 [facility] NATERAon 09-23-2024 NATURA SEE SCANNED REPORT [facility] Comment on above: Order Comment: Comme nts: Day #1 Reason for Laboratory Test Performed By: #### L 100.0500 #### [facility] [address] [place], [address] Neisseria gonorrhoeae nuclei c acid detection by amplified probe techniqueOrdered By: Greg Rich on 09-23-2024 N. gonorrhoeae DNA ARIAN+probe Ql (Unsp spec) Negative Negative [facility] Comment on above: Performed at: =[address] [id number] Director: Silvia Irwin MD, Phone: [phone] Neutrophil percentageOrdered By: Greg Rich on 09-23-2024 Neutrophils/100 WBC (Bld) 70.5 % High 47-70 [facility] No Panel InformationOrdered By: Greg Rich on 09-23-2024 Pap Smear Specimen Adequacy Comment . [facility] Comment on above: Satisfactory for rosa luation. No endocervical component is identified.An endocervical component is not commonly seen in the patient. HIV (1&2) Antibody Non-Reactive Nonreactive [facility] Comment on above: Non-ReactiveReactive Repeatedly reactive samples must be confirmed according to CDC recommended confirmatory algorithms. The subresults for either HIVAG or AHIV can be used as an aid in the selection of the confirmation algorithm for reactive samples.Send out specimens with Reactive results to [facility] for confirmation.Order the HIV antibody detection and differentiation: #[id number] Nucleated red blood cell per centageOrdered By: Greg Rich on 09-23-2024 Nucleated RBC/100 WBC (Bld) [Ratio] 0 % 0-5 [facility] Registered Public Health Nurse Office Visit Reporton 09-23-2024 Registered Public Health Nurse Office Visit Report 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 Date Name GA/Weeks Outcome Route Bth Weight Gen Labor Lgth Anesthesia Del Locatn Provider FOB 04/14/21 [place] 41 live - full term 8#2oz Male epidural [facility] [place] Delivery Date: 04/14/21 Last [...] dates. accepts (more content not included)... Normal [facility] Platelet countOrdered By: Akbar Rich on 09-23-2024 Platelets (Bld) [#/Vol] 294 10*3/uL 150-450 [facility] RBC Auto (Bld) [#/Vol]Ordere d By: Greg Rich on 09-23-2024 RBC (Bld) [#/Vol] 4.40 10*6/uL 4.2-5.4 [facility] Rubella immune status determ ination by IgG antibody assayOrdered By: Greg Rich on 09-23-2024 Rubella IgG Antibody REAC Nonreactive [facility] Comment on above: Antibody Result: Int erpretationNon-Reactive: Non-ImmuneReactive: ImmuneThe following results were obtained with the [employer]ys Rubella IgG assay. Results from assays of other manufacturers cannot be used interchangeably. Service comment (Unsp spec) [Interp]Ordered By: Greg Rich on 09-23-2024 Pap Smear Comment (3) . . [facility] T. pallidum abOrdered By: Akbar Rich on 09-23-2024 Syphilis Total Antibody Non-Reactive Nonreactiv e [facility] Type AND Screenon 09-23-2024 ABO and Rh group Nom (Bld) Blood group O Rh(D) negative Normal [facility] Comment on above: Order Comment: Comme nts: Day #1 Reason for Laboratory Test Performed By: #### L 100.0500 #### [facility] [address] [place] [place], [address] Urine cultureOrdered By: Luan Rich on 09-23-2024 Bacteria identified Cx Nom (U) Culture exhibits no growth. [facility] White blood cell (WBC) count Ordered By: Greg Rich on 09-23-2024 WBC (Bld) [#/Vol] 12.3 10*3/uL High 4.4-11.0 [facility] Serum Varicella zoster virus IgG antibody assay by immunoassay (units/volume)Ordered By: Cristina Barros on 03-06-2023 VZV IgG IA Qn (S) 3665 index Immune >165 [facility] Comment on above: Negative <135 Equivo eben 135 - 165 Positive >165A positive result generally indicates exposure to thepathogen or administration of specific immunoglobulins,but it is not indication of active infection or stageof disease.Performed at: - [address] [id number] Director: Jake Ferreira PhD, Phone: [phone] No Panel Informationon 02-19 Rubella IgG Antibody Reactive Nonreactive [facility] Work Phone: Comment on above: Antibody Results Int erpretation of Immune Status Non Reactive Presumed Non-Immune Equivocal Equivocal Reactive Presumed Immune Serum measles virus IgG anti body assay by immunoassay (units/volume)on 02-19-2022 MeV IgG IA Qn (S) 150.0 AU/mL Immune >16.4 [place] Work Phone: Comment on above: Negative <13.5 Equiv ocal 13.5 - 16.4 Positive >16.4Presence of antibodies to Rubeola is presumptive evidenceof immunity except when acute infection is suspected.Performed at: [address] [id number] Director: Jake Ferreira PhD, Phone: [phone] Serum mumps virus IgG antibo dy assay (units/volume)on 02-19-2022 MuV IgG Qn (S) 16.6 AU/mL Immune >10.9 [facility] Work Phone: Comment on above: Negative <9.0 Equivo eben 9.0 - 10.9 Positive >10.9A positive result generally indicates past exposure toMumps virus or previous vaccination. Vital Signs Date Time Vital Sign Value Performing Clinician Jenelle simmons 03-30-2025 17:29-0400 Body temperature 97 [degF] Erick Brooks CARDIAC SPECIALIST-C Work Phone: [facility] 03-30-2025 17:29-0400 Diastolic blood pressure 67 mm[Hg] Erick Brooks CARDIAC SPECIALIST-C Work Phone: [facility] 03-30-2025 17:29-0400 Heart rate 73 /min Erick Coleharbor CARDIAC SPECIALIST-C Work Phone: [facility] 03-30-2025 17:29-0400 Respiratory rate 18 /min Erick Brooks CARDIAC SPECIALIST-C Work Phone: [facility] 03-30-2025 17:29-0400 SaO2% (BldA) [Mass fraction] 98 % Erick Brooks CARDIAC SPECIALIST-C Work Phone: [facility] 03-30-2025 17:29-0400 Systolic blood pressure 127 mm[Hg] Erick Brooks CARDIAC SPECIALIST-C Work Phone: [facility] 03-28-2025 05:40-0400 Body height 175.26 cm Erick Coleharbor CARDIAC SPECIALIST-C Work Phone: [facility] 03-28-2025 05:40-0400 Body mass index (BMI) [Ratio] 51.5 kg/m2 Erick Coleharbor CARDIAC SPECIALIST-C Work Phone: [facility] 03-28-2025 05:40-0400 Body weight 158.3 kg Erick Brooks CARDIAC SPECIALIST-C Work Phone: [facility] 03-24-2025 10:26-0400 Body height 175.26 cm Erick Brooks CARDIAC SPECIALIST-C Work Phone: [facility] 03-24-2025 10:26-0400 Body mass index (BMI) [Ratio] 51 kg/m2 Erick Brooks CARDIAC SPECIALIST-C Work Phone: [facility] 03-24-2025 10:26-0400 Body weight 156.74 kg Erick Coleharbor CARDIAC SPECIALIST-C Work Phone: [facility] 03-24-2025 10:26-0400 Diastolic blood pressure 76 mm[Hg] Erick Brooks CARDIAC SPECIALIST-C Work Phone: [facility] 03-24-2025 10:26-0400 Systolic blood pressure 132 mm[Hg] Erick Coleharbor CARDIAC SPECIALIST-C Work Phone: [facility] 03-24-2025 09:10-0400 Body height 175.26 cm Erick Coleharbor CARDIAC SPECIALIST-C Work Phone: [facility] 03-24-2025 09:10-0400 Body mass index (BMI) [Ratio] 51.1 kg/m2 Erick Coleharbor CARDIAC SPECIALIST-C Work Phone: [facility] 03-24-2025 09:10-0400 Body weight 157 kg Erick Coleharbor CARDIAC SPECIALIST-C Work Phone: [facility] 03-24-2025 09:10-0400 Diastolic blood pressure 64 mm[Hg] Erick Coleharbor CARDIAC SPECIALIST-C Work Phone: [facility] 03-24-2025 09:10-0400 Heart rate 82 /min Erick Coleharbor CARDIAC SPECIALIST-C Work Phone: [facility] 03-24-2025 09:10-0400 Systolic blood pressure 133 mm[Hg] Erick Brooks CARDIAC SPECIALIST-C Work Phone: [facility] 03-21-2025 10:29-0400 Body height 175.26 cm Erick Brooks CARDIAC SPECIALIST-C Work Phone: [facility] 03-21-2025 10:29-0400 Body mass index (BMI) [Ratio] 50.5 kg/m2 Erick Coleharbor CARDIAC SPECIALIST-C Work Phone: [facility] 03-21-2025 10:29-0400 Body weight 155.29 kg Erick Coleharbor CARDIAC SPECIALIST-C Work Phone: [facility] 03-21-2025 10:29-0400 Diastolic blood pressure 72 mm[Hg] Erick Coleharbor CARDIAC SPECIALIST-C Work Phone: [facility] 03-21-2025 10:29-0400 Systolic blood pressure 127 mm[Hg] Erick Brooks CARDIAC SPECIALIST-C Work Phone: [facility] 03-15-2025 10:55-0400 Respiratory rate 16 /min Erick Coleharbor CARDIAC SPECIALIST-C Work Phone: [facility] 03-15-2025 10:44-0400 Diastolic blood pressure 66 mm[Hg] Erick Coleharbor CARDIAC SPECIALIST-C Work Phone: [facility] 03-15-2025 10:44-0400 Heart rate 74 /min Erick Brooks CARDIAC SPECIALIST-C Work Phone: [facility] 03-15-2025 10:44-0400 Systolic blood pressure 123 mm[Hg] Erick Coleharbor CARDIAC SPECIALIST-C Work Phone: [facility] 03-15-2025 10:40-0400 Body height 175.26 cm Erick Brooks CARDIAC SPECIALIST-C Work Phone: [facility] 03-15-2025 10:40-0400 Body mass index (BMI) [Ratio] 49.8 kg/m2 Erick Coleharbor CARDIAC SPECIALIST-C Work Phone: [facility] 03-15-2025 10:40-0400 Body weight 153 kg Erick Arguetas CARDIAC SPECIALIST-C Work Phone: [facility] 03-09-2025 10:33-0400 Heart rate 67 /min Erick Brooks CARDIAC SPECIALIST-C Work Phone: [facility] 03-09-2025 10:33-0400 SaO2% (BldA) [Mass fraction] 96 % Erick Coleharbor CARDIAC SPECIALIST-C Work Phone: [facility] 03-09-2025 10:29-0400 Body height 175.26 cm Erick Coleharbor CARDIAC SPECIALIST-C Work Phone: [facility] 03-09-2025 10:29-0400 Body mass index (BMI) [Ratio] 50.1 kg/m2 Erick Brooks CARDIAC SPECIALIST-C Work Phone: [facility] 03-09-2025 10:29-0400 Body weight 154.1 kg Erick Coleharbor CARDIAC SPECIALIST-C Work Phone: [facility] 03-09-2025 10:22-0400 Diastolic blood pressure 58 mm[Hg] Erick Brooks CARDIAC SPECIALIST-C Work Phone: [facility] 03-09-2025 10:22-0400 Systolic blood pressure 122 mm[Hg] Erick Brooks CARDIAC SPECIALIST-C Work Phone: [facility] 03-09-2025 10:19-0400 Body temperature 97.5 [degF] Erick Coleharbor CARDIAC SPECIALIST-C Work Phone: [facility] 03-09-2025 10:19-0400 Respiratory rate 18 /min Erick Brooks CARDIAC SPECIALIST-C Work Phone: [facility] 03-09-2025 08:55-0400 Body height 175.26 cm Erick Coleharbor CARDIAC SPECIALIST-C Work Phone: [facility] 03-09-2025 08:54-0400 Body mass index (BMI) [Ratio] 50.1 kg/m2 Erick Brooks CARDIAC SPECIALIST-C Work Phone: [facility] 03-09-2025 08:54-0400 Body weight 153.93 kg Erick Coleharbor CARDIAC SPECIALIST-C Work Phone: [facility] 03-09-2025 08:54-0400 Diastolic blood pressure 85 mm[Hg] Erick Coleharbor CARDIAC SPECIALIST-C Work Phone: [facility] 03-09-2025 08:54-0400 Systolic blood pressure 136 mm[Hg] Erick Coleharbor CARDIAC SPECIALIST-C Work Phone: [facility] 02-22-2025 10:03-0400 Body height 175.26 cm Erick Brooks CARDIAC SPECIALIST-C Work Phone: [facility] 02-22-2025 10:03-0400 Body mass index (BMI) [Ratio] 49.9 kg/m2 Erick Brooks CARDIAC SPECIALIST-C Work Phone: [facility] 02-22-2025 10:03-0400 Body weight 153.34 kg Erick Coleharbor CARDIAC SPECIALIST-C Work Phone: [facility] 02-22-2025 10:03-0400 Diastolic blood pressure 76 mm[Hg] Erick Coleharbor CARDIAC SPECIALIST-C Work Phone: [facility] 02-22-2025 10:03-0400 Systolic blood pressure 132 mm[Hg] Erick Brooks CARDIAC SPECIALIST-C Work Phone: [facility] 02-07-2025 09:25-0400 Body height 175.26 cm Erick Brooks CARDIAC SPECIALIST-C Work Phone: [facility] 02-07-2025 09:25-0400 Body mass index (BMI) [Ratio] 49 kg/m2 Erick Coleharbor CARDIAC SPECIALIST-C Work Phone: [facility] 02-07-2025 09:25-0400 Body weight 150.59 kg Erick Brooks CARDIAC SPECIALIST-C Work Phone: [facility] 02-07-2025 09:25-0400 Diastolic blood pressure 71 mm[Hg] Erick Rodriguez CARDIAC SPECIALIST-C Work Phone: [facility] 02-07-2025 09:25-0400 Systolic blood pressure 107 mm[Hg] Erick Smithtings CARDIAC SPECIALIST-C Work Phone: [facility] 01-24-2025 08:40-0400 Body height 175.[address] Aye Dey DO Work Phone: [facility] 01-24-2025 08:30-0400 Body mass index (BMI) [Ratio] 48.9 kg/m2 Dr. Aye Dey DO Work Phone: [facility] 01-24-2025 08:30-0400 Body weight 150.[address] Aye Dey DO Work Phone: [facility] 01-24-2025 08:30-0400 Diastolic blood pressure 72 mm[Hg] Dr. Aye Dey DO Work Phone: [facility] 01-24-2025 08:30-0400 Systolic blood pressure 124 mm[Hg] Dr. Aye Dey DO Work Phone: [facility] 01-12-2025 09:43-0400 Body height 175.26 cm Greg LUIM Work Phone: [facility] 01-12-2025 09:43-0400 Body mass index (BMI) [Ratio] 48.4 kg/m2 Greg LUIM Work Phone: [facility] 01-12-2025 09:43-0400 Body weight 149 kg Greg LUIM Work Phone: [facility] 01-12-2025 09:43-0400 Diastolic blood pressure 82 mm[Hg] Greg LUIM Work Phone: [facility] 01-12-2025 09:43-0400 Systolic blood pressure 130 mm[Hg] Greg LUIM Work Phone: [facility] 12-16-2024 09:30-0400 Body height 175.26 cm Greg Rich CNM Work Phone: [facility] 12-16-2024 09:06-0400 Body mass index (BMI) [Ratio] 47.2 kg/m2 Greg Rich CNM Work Phone: [facility] 12-16-2024 09:06-0400 Body weight 145.14 kg Greg Rich CNM Work Phone: [facility] 12-16-2024 09:06-0400 Diastolic blood pressure 69 mm[Hg] Greg Rich CNM Work Phone: [facility] 12-16-2024 09:06-0400 Systolic blood pressure 119 mm[Hg] Greg Rich CNM Work Phone: [facility] 11-17-2024 08:40-0400 Body height 175.26 cm Greg Rich CNM Work Phone: [facility] 11-17-2024 08:40-0400 Body mass index (BMI) [Ratio] 46.8 kg/m2 Greg Rich CNM Work Phone: [facility] 11-17-2024 08:40-0400 Body weight 144.01 kg Greg Rich CNM Work Phone: [facility] 11-17-2024 08:40-0400 Diastolic blood pressure 80 mm[Hg] Greg Rich CNM Work Phone: [facility] 11-17-2024 08:40-0400 Systolic blood pressure 126 mm[Hg] Greg Rich CNM Work Phone: [facility] 10-22-2024 10:18-0400 Body mass index (BMI) [Ratio] 46 kg/m2 Greg LUIM Work Phone: [facility] 10-22-2024 10:18-0400 Body weight 141.57 kg Greg Rich CNM Work Phone: [facility] 10-22-2024 10:18-0400 Diastolic blood pressure 76 mm[Hg] Greg LUIM Work Phone: [facility] 10-22-2024 10:18-0400 Systolic blood pressure 119 mm[Hg] Greg LUIM Work Phone: [facility] 09-23-2024 09:08-0400 Body height 175.26 cm Greg Rich CNM Work Phone: [facility] 09-23-2024 09:05-0400 Body mass index (BMI) [Ratio] 45.6 kg/m2 Greg Rich CNM Work Phone: [facility] 09-23-2024 09:05-0400 Body weight 140.27 kg Greg Rich CNM Work Phone: [facility] 09-23-2024 09:05-0400 Diastolic blood pressure 67 mm[Hg] Greg Rich CNM Work Phone: [facility] 09-23-2024 09:05-0400 Systolic blood pressure 121 mm[Hg] Greg Rich CNM Work Phone: [facility] Encounters Encounter Date Encounter Type Care Provider Facility Start: 04-11-2025 ambulatory Delmar Almanzar lity:[facility] Start: 03-31-2025 End: 03-31-2025 ambulatory Delmar Luna Facility:[facility] Start: 03-30-2025 Non-patient / Non-visit Dr. Fiordaliza Zhong MD -[facility] Start: 03-29-2025 Non-patient / Non-visit Greg Rich CNM -[facility] Start: 03-28-2025 Non-patient / Non-visit Dr. Fiordaliza Zhong MD -[facility] Start: 03-28-2025 ambulatory Fiordaliza Almanzar lity:[facility] Start: 03-28-2025 End: 03-30-2025 Evaluation and management of inpatient Dr. Fiordaliza Zhong MD -[facility] Work Phone: Start: 03-27-2025 ambulatory Fiordaliza Almanzar lity:[facility] Start: 03-27-2025 Non-patient / Non-visit Dr. Fiordaliza Zhong MD -[facility] Start: 03-24-2025 Non-patient / Non-visit Dr. Fiordaliza Zhong MD -[facility] Start: 03-24-2025 End: 03-24-2025 ambulatory Erick Rodriguez CARDIAC SPECIALIST-C Work Phone: [facility] Start: 03-24-2025 End: 03-24-[address] Fiordaliza Zh[facility] Work Phone: Start: 03-21-2025 End: 03-21-2025 ambulatory [facility] Start: 03-21-2025 End: 03-21-2025 ambulatory [facility] Start: 03-21-[address] Fiordaliza Zhong MD -[facility] Work Phone: Start: 03-21-2025 End: 03-21-2025 ambulatory Erick Rodriguez CARDIAC SPECIALIST-C Work Phone: [facility] Start: 03-21-2025 End: 03-21-[address] Fiordaliza Zhong MD -[facility] Work Phone: Start: 03-21-2025 End: 03-21-2025 ambulatory Fiordaliza Zhong Facility:[facility] Start: 03-17-2025 End: 03-17-2025 ambulatory [facility] Start: 03-16-2025 End: 03-16-2025 ambulatory AYE Alicia [facility] Start: 03-15-2025 Non-patient / Non-visit Dr. Fiordaliza Zhong MD -[facility] Start: 03-15-2025 End: 03-15-2025 ambulatory Erick Rodriguez CARDIAC SPECIALIST-C [facility] Start: 03-15-2025 End: 03-15-[address] [facility] Work Phone: Start: 03-11-2025 End: 03-11-2025 ambulatory GREG Kodak LAYLA [facility] Start: 03-09-2025 ambulatory Damienrosy Luna Jenelle knighty:[facility] Start: 03-09-2025 Non-patient / Non-visit Dr. Aye Dey DO -[facility] Start: 03-09-2025 End: 03-09-[address] Aye Dey DO -[facility] Work Phone: Start: 03-09-2025 End: 03-09-2025 ambulatory Erick Rodriguez CARDIAC SPECIALIST-C Work Phone: [facility] Start: 03-07-2025 End: 03-07-2025 ambulatory COSTA CARDPark [facility] Start: 02-22-2025 End: 02-22-2025 Patient encounter procedure Greg Rich [facility] Work Phone: Start: 02-22-2025 End: 02-22-2025 ambulatory Erick Rodriguez CARDIAC SPECIALIST-C Work Phone: [facility] Start: 02-07-2025 End: 02-07-[address] Aye Dey DO -[facility] Work Phone: Start: 02-07-2025 End: 02-07-2025 ambulatory Erick Rodriguez CARDIAC SPECIALIST-C Work Phone: -[facility] Start: 01-25-2025 End: 01-25-[address] Aye Dey DO Work Phone: -Laboratory Start: 01-25-2025 End: 01-25-2025 Patient encounter procedure Erick Rodriguez CARDIAC SPECIALIST-C -Laboratory Work Phone: Start: 01-24-2025 End: 01-24-2025 Patient encounter procedure Erick Rodriguez CARDIAC SPECIALIST-C -[facility] Work Phone: Start: 01-24-2025 End: 01-25-[address] Aye Dey DO Work Phone: -[facility] Start: 01-24-2025 End: 01-24-2025 ambulatory Erickpatti Arguetas Facility:[facility] Start: 01-12-2025 End: 01-12-2025 Patient encounter procedure Erick Rodriguez CARDIAC SPECIALIST-C -[facility] Work Phone: Start: 01-12-2025 End: 01-12-2025 ambulatory Greg LUIM Work Phone: [facility] Start: 12-16-2024 End: 12-16-[address] Fiordaliza Zhong MD -[facility] Work Phone: Start: 12-16-2024 End: 12-16-2024 ambulatory Greg Rich CNM Work Phone: [facility] Work Phone: Start: 11-23-2024 End: 11-23-2024 ambulatory GREG RICH [facility] Start: 11-17-2024 End: 11-17-2024 Patient encounter procedure Erick Rodriguez CARDIAC SPECIALIST-C -[facility] Work Phone: Start: 11-17-2024 End: 11-17-2024 ambulatory Greg Rich CNM Work Phone: [facility] Work Phone: Start: 11-17-2024 End: 11-17-2024 ambulatory Erickpatti Arguetas Facility:[facility] Start: 10-22-2024 End: 10-22-[address] Aye Dey DO -[facility] Work Phone: Start: 10-22-2024 End: 10-22-2024 ambulatory Aye Dey Facility:[facility] Start: 10-04-2024 End: 10-04-2024 ambulatory Greg Rich CNM Work Phone: [facility] Work Phone: Start: 10-04-2024 End: 10-04-[address] Aye Dey DO -[facility] Start: 10-04-2024 End: 10-04-2024 ambulatory Aye Dey Facility:[facility] Start: 09-23-2024 End: 09-23-2024 Patient encounter procedure Greg LUIM -[facility] Work Phone: Start: 09-23-2024 End: 09-23-2024 ambulatory Greg LUIM Work Phone: [facility] Work Phone: Start: 09-23-2024 End: 09-23-2024 ambulatory Greg Rich Facility:[facility] Start: 03-06-2023 End: 03-06-[address] [facility] Work Phone: Start: 03-06-2023 End: 03-06-[address] [facility] Start: 02-19-2022 End: 02-19-[address] [facility] Procedures Date Procedure Procedure Detail Performing Clinician Start: 03-28-2025 Serologic test for syphilis Erick briceño CARDIAC SPECIALIST-C Work Phone: Start: 03-21-2025 Beta-hemolytic Streptococcus culture Erick Rodriguez CARDIAC SPECIALIST-C Work Phone: Start: 01-24-2025 Serologic test for syphilis Dr. Aye Dey DO Work Phone: Start: 11-17-2024 Procedure Greg Rich CNM Work Phone: Comment on above: Test Ordered: [id number] AFP, Serum, Open Sp jeb BifidaResults Report [...] Open Spina Bifida RiskFor further inquiries contact [facility] [facility] at [phone].This test was developed and its performance characteristicsdetermined by [email or web address]. It has not been cleared or approvedby the Food and Drug Administration.Performed at: TG - [facility] [id number] [place], [place] [id number] Director: Cara Lanza [facility], Phone: [phone] at: CB - [facility] [address] [id number] Director: Jake Ferreria PhD, Phone: [phone] Test Ordered: [id number] AFP, Serum, Open Spina BifidaResults Comment TG Reference Range: .The MOM and risk factors of this report have been modifiedbased on new information supplied to us by the client ortheir designated personal service representative.The Weight was changed from Not [...] Open Spina Bifida RiskFor further inquiries contact [employer] [facility] at [phone].This test was developed and its performance characteristicsdetermined by [email or web address]. It has not been cleared or approvedby the Food and Drug Administration.Performed at: - [facility] [id number] [facility], [facility], [place] [id number] Director: Cara Lanza [facility], Phone: [phone] at: [address] [id number] Director: Jake Ferreira PhD, Phone: [phone] reported result: COMMENT Edited by: GISELA on 11/23/24:1609 AMENDED REPORT 11/23/24 1609 [facility] previously reported as: COMMENT Test Ordered: [id number] AFP, Serum, Open Spina BifidaResults Report TG [...] Open Spina Bifida RiskFor further inquiries contact [facility] at [phone].This test was developed and its performance characteristicsdetermined by [email or web address]. It has not been cleared or approvedby the Food and Drug Administration.Performed at: [email or web address] [id number] [facility], [facility], [place] [id number] Director: Cara Lanza [facility], Phone: [phone] at: [facility] [address] [id number] Director: Jake Ferreira PhD, Phone: [phone] Start: 10-04-2024 Procedure Greg Rich [facility] Work Phone: Start: 09-23-2024 Liquid based cervical cytology screening Greg Rich [facility] Work Phone: Comment on above: NEGATIVE FOR INTRAEPITHELIAL LESION OR M ALIGNANCY. This liquid based Th inPrep(R) pap test was screened withthe use of an image guided system. Start: 09-23-2024 Urine culture Greg Rich [facility] Work Phone: Start: 09-23-2024 Hepatitis C antibody measurement Greg collazo [facility] Work Phone: Comment on above: Reactive: Presumptive evidence of antibo dies to HCV. Follow CDC recommendations for supplemental testing.Non-Reactive: Antibodies to HCV were not detected; does not exclude the possibility of exposure to HCVReactive Results are presumptive evidence of antibodies to HCV. Follow CDC recommendations for supplemental testing.Order confirmation testing: HCV Quant by PCR testing - HCVPCR #[id number] Non Reactive: < 0.8 Equivocal: >/= 0.8 to < 1.0 Reactive: >/= 1.0The CDC requires that a reactive/equivocal HCV antibody result be sent out for confirmation. HCV Quant by PCR testing. Start: 09-23-2024 Procedure Greg Rich [facility] Work Phone: Start: 09-23-2024 Rubella IgG measurement Greg Rich [facility] Work Phone: Comment on above: Antibody Result: InterpretationNon-React macario: Non-ImmuneReactive: ImmuneThe following results were obtained with the [employer] Rubella IgG assay. Results from assays of other manufacturers cannot be used interchangeably. Start: 09-23-2024 Serologic test for syphilis Greg Blair [facility] Work Phone: Plan of Treatment Date Care Activity Detail Author Start: 03-30-2025 Patient discharge [facility] Start: 03-29-2025 Application of abdom inal corset [facility] Start: 03-28-2025 End: 03-29-2025 [facility] Start: 03-28-2025 Administration of bl ood product [facility] Start: 03-28-2025 Administration of bl ood product [facility] Start: 03-28-[address] [facility] Start: 03-28-2025 Application of device W [facility] Start: 03-28-2025 End: 03-28-2025 Application of intermittent pneumatic compression device [facility] Start: 03-28-2025 Assessment of risk o f venous thromboembolism [facility] Start: 03-28-[address] [facility] Start: 03-28-[address] [facility] Start: 03-28-2025 Deep breathing and c oughing exercises [facility] Start: 03-28-2025 Exercises [facility] Start: 03-28-2025 Measuring intake and output [facility] Start: 03-28-[address] [facility] Start: 03-28-[address] [facility] Start: 03-28-[address] [facility] Start: 03-28-2025 Provision of activit y privileges [facility] Start: 03-28-2025 Skin care [facility] Start: 03-28-[address] [facility] Start: 03-28-2025 Wound care [facility] Start: 03-28-2025 Application of abdom inal corset [facility] Start: 03-28-2025 section Primary C Sec tion (Not Applicable) [facility] Start: 03-28-2025 Admission procedure [facility] Start: 03-24-2025 Patient discharge [facility] Start: 03-15-[address] [facility] Start: 03-15-2025 Obstetric monitoring [facility] Start: 03-15-[address] [facility] Start: 03-15-2025 [facility] Start: 03-15-2025 Patient discharge [facility] Start: 03-09-[address] [facility] Start: 03-09-2025 Obstetric monitoring [facility] Start: 03-09-[address] [facility] Start: 03-09-2025 [facility] Start: 03-09-2025 Patient discharge [facility] Start: 01-24-2025 CBC W Auto Different ial panel - Blood [facility] Start: 01-24-2025 Measurement of gluco se 2 hours after glucose challenge for glucose tolerance test [facility] Start: 01-24-2025 Serologic test for syphilis [facility] Start: 01-24-2025 [facility] CBC W Auto Different ial panel - Blood [facility] Erythrocyte mean cor puscular volume determination [facility] Hematocrit [Volume F raction] of Blood [facility] Hemoglobin [Mass/vol ume] in Blood [facility] Leukocytes [#/volume ] in Blood [facility] Mean corpuscular hem oglobin concentration determination [facility] Mean corpuscular hem oglobin determination [facility] Measurement of gluco se 2 hours after glucose challenge for glucose tolerance test [facility] Neutrophil count [facility] Neutrophil percent differential count [facility] Patient Education [facility] Work Phone: Platelets [#/volume] in Blood [facility] Red blood cell count [facility] Red cell distributio n width determination [facility] Serologic test for syphilis [facility] Streptococcus agalac tiae [Presence] in Unspecified specimen by Organism specific culture [facility] Immunizations Immunization Date Immunization Notes Care Provider Dwayne samson 01-24-2025 tetanus toxoid, redu lashon diphtheria toxoid, and acellular pertussis vaccine, adsorbed Dr. Aye Dey DO Work Phone: [facility] 01-12-2021 tetanus toxoid, redu lashon diphtheria toxoid, and acellular pertussis vaccine, adsorbed [facility] Payers Date Payer Category Payer Self-pay [id number] Unknown [id number] 1989 Unknown [id number] 2.16.840.1.792970.3.579.2.479 1989 Unknown [id number] 2.16.840.1.736894.3.579.2.479 1989 Unknown [id number] 2.16.840.1.920267.3.579.2.479 1989 Unknown [id number] 2.16.840.1.608471.3.579.2.479 1989 Unknown [id number] 2.16.840.1.890952.3.579.2.479 1989 Unknown [id number] 2.16.840.1.879731.3.579.2.479 1989 Unknown [id number] 2.16.840.1.219867.3.579.2.479 1989 Unknown [id number] 2.16.840.1.786144.3.579.2.479 Unknown [id number] Unknown [id number] Unknown [id number] Unknown [facility] 880 * * DO NOT USE [id number] Unknown [id number] 2.16.840.1.222594.3.579.2.462 Unknown [id number] 2.16.840.1.564039.3.579.2.462 Unknown [id number] 2.16.840.1.239186.3.579.2.462 Unknown [id number] 2.16.840.1.732335.3.579.2.462 Unknown [id number] 2.16.840.1.137797.3.579.2.462 Unknown [id number] 2.16.840.1.823154.3.579.2.462 Unknown [id number] 2.16.840.1.591853.3.579.2.462 Unknown [id number] 2.16.840.1.735769.3.579.2.462 Unknown [id number] 2.16.840.1.470177.3.579.2.462 Unknown [id number] 2.16.840.1.432288.3.579.2.462 Unknown [id number] 2.840.1.929818.3.579.2.462 Unknown [id number] 2..840.1.985512.3.579.2.462 Unknown [id number] 2.840.1.659626.3.579.2.462 Unknown [id number] 2.840.1.210225.3.579.2.462 Unknown [id number] 2.840.1.973184.3.579.2.462 Unknown [id number] 2.16.840.1.291152.3.579.2.462 Unknown [id number] 2.840.1.056498.3.579.2.462 Unknown [id number] 2.840.1.723730.3.579.2.462 Unknown [id number] 2.16.840.1.120767.3.579.2.462 Unknown [id number] 2.16840.1.145931.3.579.2.462 Unknown [id number] 2.16.840.1.451555.3.579.2.462 Unknown [id number] 2.16.840.1.991457.3.579.2.462 Unknown [id number] 2.840.1.015846.3.579.2.462 Unknown [id number] 2.16.840.1.929691.3.579.2.462 Unknown [id number] 2.16.840.1.892750.3.579.2.462 Unknown [id number] 2.16.840.1.924361.3.579.2.462 Unknown [id number] 2.16.840.1.168608.3.579.2.462 Unknown [id number] 2.16840.1.445080.3.579.2.462 Unknown [id number] 2.16.840.1.408407.3.579.2.462 Unknown [id number] 2.840.1.010515.3.579.2.462 Unknown [id number] 2.840.1.413778.3.579.2.462 Social History Date Type Detail Facility Start: 05-30-2021 Tobacco smoking stat [facility] Unknown if ever smoked [facility] Start: 1990 Sex Assigned At Female W [facility] Start: 09-14-2024 End: 03-28-2025 Tobacco smoking status IAIS Ex-smoker (finding) [facility] Start: 10-04-2024 End: 10-09-2024 Sex Female (finding) [facility] Patient currentl y [facility] Medical Equipment Procedure Code Equipment Code Equipment Origin al Text Equipment Identifier Dates Blood Sugar Diagnostic (Advanced Gluc Meter Test Strip) strip Start: 03-07-2025 Lancets [facility] Start: 03-07-2025 Blood Sugar [...] strip Start: 03-07-2025 Lancets misc Start: 03-07-2025 Goals Date Patient Goal Desired Activity /State Functional Status Date Assessment Result Facility 03-30-2025 Functional status Activity Ability Indepe ndent [facility] Work Phone: Mental Status Date Assessment Result Facility 03-28-2025 Cognitive function Level Of Consciousness Awake [facility] Work Phone: Clinical Notes 09-23-2024 to 03-30-2025 Note Date & Type Note Facility 03-30-[address] [facility] 03-30-2025 Discharge summary Note Date/Time March 30, 2025 3:11pm [facility] Medical Records Department [address] [place] [address] Instructions for Home/Discharge Instructions 03/28/25 0719 MR#: [id number] Acct: [id number] Name: DEMETRIUS FERNANDES Rep #:[id number] : 1990 34 From: Fiordaliza moctezuma MD PCP: Dr. Delmar Luna MD Status :ADM IN Discharge Instructions DC O2, CPAP, BIPAP needs Home O2 Discharge instructions: No Dressing / Incision Discharge Activity: May Not Drive (for 2 weeks or while taking narcotic pain medications.), May Shower and May Take a Tub Bath (in 7 days) May shower in (days): 0 May resume sexual activity in: 4-6 weeks Weight Bearing Status: Full weight bearing Lifting Restrictions: 20 pounds Dressing / Incision Call your doctor if your incision/area has: Continuous Slow Oozing, Sudden Increased Bleeding, Increased Pain/ Swelling, Increased Redness and Foul Smelling Discharge Call your doctor if you observe: Fever of 101 or Higher and Using more than 1 pad per hour (for 2 hours) Suture Line Care: Avoid Pulling/Pushing and Avoid Pinching/Bending Cleanse incision/area with: Soap & Water and Keep Dressing Clean & Dry Follow Up Care Please Follow Up With: Fiordaliza Zhong MD When: Call [phone] to make an appointment for an incision check in 1-2 weeks. Test Results: Test results from this visit will be discussed in further detail at your follow-up appointment, if applicable. Discharge Plan Admission Admit Date/Time: 03/28/25 05:47 Attending Provider: Fiordaliza Zhong Primary Care Provider: Delmar Luna Discharge Orders/Prescriptions Prescriptions: New naproxen 500 mg tablet 500 mg PO BID PRN PRN (Reason: Pain) Qty: 30 1RF oxycodone-acetaminophen [Percocet] 5-325 mg tablet 1 tab PO Q4H PRN (Reason: pain) 7 Days Qty: 20 0RF No Action PNV-DHA 27 mg iron-1 mg -300 mg capsule 1 cap PO DAILY famotidine [Pepcid] 40 mg tablet 40 mg PO BID PRN (Reason: heartburn) Qty: 30 3RF ferrous sulfate 27 mg iron tablet 27 mg PO DAILY (DME) FreeStyle Hardeep 2 [place] Misc See Rx Instructions .ROUTE .MEDSUPPLY Qty: 1 0RF Rx Instructions: As directed (DME) Advanced Gluc Meter Test Strip Strip See Rx Instructions .Route Qty: 100 5RF Rx Instructions: As directed (DME) lancets Misc See Rx Instructions .ROUTE .MEDSUPPLY Qty: 200 2RF Rx Instructions: As directed, fasting and 2 hours post meals alcohol swabs [Alcohol Wipes] Pads, Medicated 1 pad topical DAILY Qty: 100 0RF Referrals / Follow Up: Delmar Luna MD [Primary Care Provider] - 03/30/25 1511<Electronically signed by Fiordaliza Zhong MD>Fiordaliza Zhong MD CC: Dr. Delmar Luna MD ~ Signed [facility] Work Phone: 1(173) 582-292109-17-2025 Discharge summary [facility] Medical Records Department [address] [place] [address] Instructions for Home/Discharge Instructions 03/28/25 0719 MR#: [id number] Acct: [id number] Name: DEMETRIUS FERNANDES Rep #:[id number] : 1990 34 From: Fiordaliza moctezuma MD PCP: Dr. Delmar Luna MD Status :ADM IN Discharge Instructions DC O2, CPAP, BIPAP needs Home O2 Discharge instructions: No Dressing / Incision Discharge Activity: May Not Drive (for 2 weeks or while taking narcotic pain medications.), May Shower and May Take a Tub Bath (in 7 days) May shower in (days): 0 May resume sexual activity in: 4-6 weeks Weight Bearing Status: Full weight bearing Lifting Restrictions: 20 pounds Dressing / Incision Call your doctor if your incision/area has: Continuous Slow Oozing, Sudden Increased Bleeding, Increased Pain/ Swelling, Increased Redness and Foul Smelling Discharge Call your doctor if you observe: Fever of 101 or Higher and Using more than 1 pad per hour (for 2 hours) Suture Line Care: Avoid Pulling/Pushing and Avoid Pinching/Bending Cleanse incision/area with: Soap & Water and Keep Dressing Clean & Dry Follow Up Care Please Follow Up With: Fiordaliza Zhong MD When: Call [phone] to make an appointment for an incision check in 1-2 weeks. Test Results: Test results from this visit will be discussed in further detail at your follow- up appointment, if applicable. Discharge Plan Admission Admit Date/Time: 03/28/25 05:47 Attending Provider: Fiordaliza Zhong Primary Care Provider: Delmar Luna Discharge Orders/Prescriptions Prescriptions: New naproxen 500 mg tablet 500 mg PO BID PRN PRN (Reason: Pain) Qty: 30 1RF oxycodone-acetaminophen [Percocet] 5-325 mg tablet 1 tab PO Q4H PRN (Reason: pain) 7 Days Qty: 20 0RF No Action PNV-DHA 27 mg iron-1 mg -300 mg capsule 1 cap PO DAILY famotidine [Pepcid] 40 mg tablet 40 mg PO BID PRN (Reason: heartburn) Qty: 30 3RF ferrous sulfate 27 mg iron tablet 27 mg PO DAILY (DME) FreeStyle Hardeep 2 [place] Misc See Rx Instructions .ROUTE .MEDSUPPLY Qty: 1 0RF Rx Instructions: As directed (DME) Advanced Gluc Meter Test Strip Strip See Rx Instructions .Route Qty: 100 5RF Rx Instructions: As directed (DME) lancets Misc See Rx Instructions .ROUTE .MEDSUPPLY Qty: 200 2RF Rx Instructions: As directed, fasting and 2 hours post meals alcohol swabs [Alcohol Wipes] Pads, Medicated 1 pad topical DAILY Qty: 100 0RF Referrals / Follow Up: Delmar Luna MD [Primary Care Provider] - 03/30/25 1511Sjuan antonio Zhong MD CC: Dr. Delmar Luna MD ~ Signed [facility]09-17-2025 Progress note Author Fiordaliza Zhong [facility] Note Date/Time March 30, 2025 5:41pm [facility] Medical Records Department [address] [place] [address] Progress Note - OBGYN 03/30/25 0758 MR#: [id number] Acct: [id number] Name: DEMETRIUS FERNANDES Rep #:[id number] : 1990 34 From: Fiordaliza moctezuma MD PCP: Dr. Delmar Luna MD Status :ADM IN Location: [place] [address] Subjective Subjective Patient doing well without complaints. Tolerating PO. Ambulating and voiding without difficulty. feeding well. Denies chest pain, shortness of breath,calf pain/swelling, fevers, chills, lightheadedness. Objective Data Objective Data Vital Signs: Vital Signs Temp Pulse Resp BP Pulse Ox O2 Del Method 97.9 F 77 16 117/60 96 Room Air 03/30/25 02:30 03/30/25 02:30 03/30/25 02:30 03/30/25 02:30 03/30/25 02:30 03/30/25 02:30 Oxygen Delivery Method Room Air Weight: 349 lb Body Mass Index (BMI) 51.5 Intake & Output: Intake and Output for Last 24 Hours 03/28/25 03/29/25 03/30/25 23:59 23:59 23:59 Intake Total 1782.33 / 1782.33 Output Total 4100 / 4100 Balance -2317.67 / -2317.67 Lab / Micro Data 03/29/25 05:32 ROS Constitutional Constitutional: Reports systems reviewed and no addt'l complaints, except as documented Cardiovascular Cardiovascular: Reports systems reviewed and no addt'l complaints, except as documented Respiratory/Chest Respiratory/Chest: Reports systems reviewed and no addt'l complaints, except as documented Gastrointestinal Gastrointestinal: Reports systems reviewed and no addt'l complaints, except as documented Physical Exam Const alert, oriented x3 and no apparent distress HEENT Head and Scalp: atraumatic Resp normal respiratory effort GI soft to palpation and non-tender Inspection: incision intact, healing well and drainage (none) Bimanual Exam - Vag & Uterus: uterus non-tender Uterus Palpation: uterus fundus firm (below Umbilicus) Assessment & Plan (1) delivery delivered: COMMENT: SM RLTCS 37 polyhydramnios PLAN: Plan s/p LTCS PPD # 2 1. routine post care 2. breast feeding- support given 3. rh positive 4. rubella immune 03/30/25 0758 <Electronically signed by Fiordaliza Zhong MD> Cosigner Signature (if applicable): CC: ~ Signed [facility] Work Phone: 1(183) 168-204509-17-2025 Procedure note [facility] Medical Records Department [address] [place] [address] Operative Report 03/28/25 0716 MR#: [id number] Acct: [id number] Name: DEMETRIUS FERNANDES Rep #:[id number] : 1990 34 From: Fiordaliza moctezuma MD PCP: Dr. Delmar Luna MD Status :ADM IN Location: [id number] Assessment & Plan (1) Pre-existing severe obesity in mother affecting : COMMENT: nl 1 tm hga1c. recommend weekly bpps 34 on, growth US 32 and 36. (2) Rh negative state in antepartum period: COMMENT: O-, Rhogam @ 28 wks, Given 01/24/25 (3) : QUALIFIERS: Weeks of gestation: 36 weeks Qualified Code(s): Z3A.36 - 36 weeks gestation of COMMENT: elects NIPT with gender, insufficient DNA X 2; AFP Neg. Nmlanatomy. (4) Supervision of high-risk : QUALIFIERS: Trimester: second trimester Qualified Code(s): O09.92- Supervision of high risk , unspecified, second trimester COMMENT: PRR, , MEET 04/17/25, boy Agustín Warner, Froilan (5) Advanced maternal age (AMA) in : (6) Abnormal glucose affecting : COMMENT: nl 3 hr GTT (7) Polyhydramnios affecting : COMMENT: MIKE 36 at 34 weeks per MFM. QID glucose testing. twice weekly ANFS-BPP and NST. Consult with [facility] ordered. deliver at 37 weeks scheduled for 03/28 @ 7:15 with (8) Macrosomia affecting management of mother, antepartum: COMMENT: EFW 3205 at 34 weeks per MFM, QID glucose testing (9) Breech presentation: COMMENT: at 34 weeks per MFM (10) delivery delivered: COMMENT: RLTCS 37 polyhydramnios Maternal Data Information MEET Calculator Estimated Delivery Date Method Current WG Current Estimate 04/17/25 LMP (Certain) 37w 3d Other Estimates 04/14/25 Ultrasound #1 37w 6d Final MEET Source: LMP Operative Report (OB) Procedure Details Date of Procedure: 03/28/25 Procedure Start Time: 07:48 Pre-Operative Diagnosis: Breech and Other Other Pre-Operative diagnosis: see a/pcomments Post-Operative Diagnosis: Same as Pre-operative diagnosis Classification: Scheduled Type of Anesthesia: Spinal Special Medications: none Antibiotic Given: Ancef 2 grams IV x1 Drain: Roberson to straight drain Estimated Blood Loss: 900 Fluids Replaced: crystalloid Findings Description of surgery: Spinal anesthesia was placed without difficulty. Roberson catheter was placed. The patient was placed in the dorsal supine position with leftward tilt. Patient was prepped and draped in the normal sterile fashion. Pfannenstiel skinincision was made with the scalpel and carried through to the underlying layer of fascia with the scalpel. Fascia was nicked in the midline and the incision extended latera lly. The rectus bellies were dissected off superiorly and inferiorly with out complication both sharply and bluntly. The peritoneum was entered digitally. The incision was stretched and a low transverse uterine incision was made with the scalpel. infant was found to be converted to vertex. patient had stated preivously she desired a csection regardless of presentation and declined scan prior to delivery. head delivered without complicaton prior to hsoulder s and the rest of the . delayed cord clamping employed and then the cord was clamped and cut. passed to nurse. The placenta was delivered spontaneously immediately following and was noted to be intact and have a three- vessel cord. The uterus was exteriorized cleared of all clots and debris, and the incision was closed in a single layer closure using #1 Monocryl. The ovaries and fallopian tubes were noted to be within normal limits. The uterus was returned to the maternal abdomen and gutters were cleared of all clots and debris. The peritoneum was closed with 3-0 Monocryl in a running fashion. Gloves were changed priorto fascial closure. Fascia was closed with 0 PDS in a running fashion. Subcutaneous tissue was copiously irrigated and the skin was closed with 3-0 Monocryl in a subcuticular fashion. Mepilex dressing was applied without complication. Patient was taken to recovery in stable condition. Surgical findings: nl uterus tubes ovaries Presentation: Vertex Amniotic Membrane Rupture Type: Artificial Amniotic Fluid Description: Clear Specimen collected: Yes Description of specimen(s) removed: placenta and baby Cord Vessel Description: 3 Vessels Delayed Cord Clamping: Yes Casework Manager special delivery clerk: Yes Production Controller: Catracho Davison Tasks completed by medical assistant prn: Opening & closing, Retracting and Other (assisting in deliveryof the ) Additional medical research assistant?: No Complications Complications: No Admit VTE Documentation VTE Present on Admission: No VTE Mechan Device Prophylaxis: SCD's Procedures Urinary/Genital 52xxx-59xxx: 82069 Delivery global pk 03/30/25 0800 Cosigner Signature (if applicable): CC: Dr. Delmar Luna MD; Dr. Fiordaliza Zhong MD~ Signed [facility]09-16-2025 Progress note Author Greg Rich [facility] Note Date/Time March 29, 2025 8:21am [facility] Medical Records Department [address] [place] [address] Progress Note - OBGYN 03/29/25 0818 MR#: [id number] Acct: [id number] Name: DEMETRIUS FERNANDES Rep #:[id number] : 1990 34 From: Greg Rich CNM PCP: Dr. Delmar Luna MD Status :ADM IN Location: [id number] Subjective Subjective Patient doing well without complaints. Tolerating PO. Ambulating and voiding without difficulty. Feeding well. Denies chest pain, shortness of breath, calf pain/swelling, fevers, chills, lightheadedness. Objective Data Objective Data Vital Signs: Vital Signs Temp Pulse Resp BP Pulse Ox O2 Del Method 97.3 F L 72 18 118/55 L 97 Room Air 03/29/25 03:50 03/29/25 03:50 03/29/25 03:50 03/29/25 03:50 03/29/25 03:50 03/29/25 03:50 Oxygen Delivery Method Room Air Weight: 349 lb Body Mass Index (BMI) 51.5 Intake & Output: Intake and Output for Last 24 Hours 03/27/25 03/28/25 03/29/25 23:59 23:59 23:59 Intake Total 1782.33 / 1782.33 Output Total 4100 / 4100 Balance -2317.67 / -2317.67 Lab / Micro Data Attestation: I reviewed the patient's lab results. 03/29/25 05:32 Labs: Laboratory Results - last 24 hr 03/28/25 10:55: Screen NEGATIVE, Baby's Blood Type A POSITIVE, Baby's SAGE NEGATIVE 03/29/25 05:30: POC Glucose 77 03/29/25 05:32: WBC 12.2 H, RBC 3.64 L, Hgb 9.9 L, Hct 30.4 L, MCV 83.5, MCH 27.2, MCHC 32.6, RDW Std Deviation 47.1 H, RDW Coeff of Anoop 15.5 H, Plt Count 211, MPV 10.6 ROS Constitutional Constitutional: Reports systems reviewed and no addt'l complaints, except as documented; Denies anorexia or headache(s) Cardiovascular Cardiovascular: Reports systems reviewed and no addt'l complaints, except as documented; Denies dizziness, dyspnea, nausea or tachypnea Respiratory/Chest Respiratory/Chest: Reports systems reviewed and no addt'l complaints, except as documented; Denies cough, dyspnea, shortness of breath at rest or tachypnea Gastrointestinal Gastrointestinal: Reports systems reviewed and no addt'l complaints, except as documented; Denies abdominal pain, constipation or nausea Genitourinary Genitourinary: Reports systems reviewed and no addt'l complaints, except as documented; Denies burning urination, difficulty urinating, dysuria, urinary frequency or urinary incontinence Musculoskeletal Musculoskeletal: Reports systems reviewed and no addt'l complaints, except as documented Integumentary Integumentary: Reports systems reviewed and no addt'l complaints, except as documented Neurologic Neurologic: Reports systems reviewed and no addt'l complaints, except as documented; Denies abnormal speech, dizziness or headache(s) Psychiatric Psychiatric: Reports systems reviewed and no addt'l complaints, except as documented Endocrine Endocrinology: Reports systems reviewed and no addt'l complaints, except as documented Hematologic/Lymphatic Hematologic/Lymphatic: Reports systems reviewed and no addt'l complaints, exceptas documented Physical Exam Const alert, oriented x3 and no apparent distress Neck full ROM Resp normal respiratory effort, normal air movement and no retractions Effort and Inspection: able to speak in complete sentences and symmetric chest movement GI soft to palpation Bladder / Kidney Exam: bladder normal to palpation Uterus Palpation: uterus fundus firm Extremity normal to inspection and full ROM Psych mental status grossly normal, thought process normal and cooperative Assessment & Plan (1) delivery delivered: COMMENT: SM RLTCS 37 polyhydramnios PLAN: s/p LTCS PPD # 1 1. routine post care 2. breast feeding- support given 3. rh positive 4. rubella immune (2) Breech presentation: COMMENT: at 34 weeks per MFM (3) Macrosomia affecting management of mother, antepartum: COMMENT: EFW 3205 at 34 weeks per MFM, QID glucose testing (4) Polyhydramnios affecting : COMMENT: MIKE 36 at 34 weeks per MFM. QID glucose testing. twice weekly ANFS-BPP and NST. Consult with MFM ordered. deliver at 37 weeks scheduled for 03/28 @ 7:15 with (5) Abnormal glucose affecting : COMMENT: nl 3 hr GTT (6) Advanced maternal age (AMA) in : (7) Supervision of high-risk : QUALIFIERS: Trimester: second trimester Qualified Code(s): O09.92- Supervision of high risk , unspecified, second trimester COMMENT: PRR, , MEET 04/17/25, jennifer Warner, Froilan (8) : QUALIFIERS: Weeks of gestation: 36 weeks Qualified Code(s): Z3A.36 - 36 weeks gestation of COMMENT: elects NIPT with gender, insufficient DNA X 2; AFP Neg. Nmlanatomy. (9) Rh negative state in antepartum period: COMMENT: O-, Rhogam @ 28 wks, Given 01/24/25 (10) Pre-existing severe obesity in mother affecting : COMMENT: nl 1 tm hga1c. recommend weekly bpps 34 on, growth US 32 and 36. Charges/Coding Multi Select Codes Urinary/Genital Urinary/Genital CPT Codes: No Charge 03/29/25820 <Electronically signed by Greg Rich CNM> Cosigner Signature (if applicable): CC: ~ Signed [facility] Work Phone: 1(957) 223-349309-16-2025 Progress note [facility] Medical Records Department [address] [place] [address] Progress Note - OBGYN 03/29/25817 MR#: [id number] Acct: [id number] Name: DEMETRIUS FERNANDES Rep #:[id number] : 1990 34 From: Greg Rich CNM PCP: Dr. Delmar Luna MD Status :ADM IN [facility] Subject[facility] Subjective Patient doing well without complaints. Tolerating PO. Ambulating and voiding without difficulty. Feeding well. Denies chest pain, shortness of breath, calf pain/swelling, fevers, chills, lightheadedness. Objective Data Objective Data Vital Signs: Vital Signs Temp Pulse Resp BP Pulse Ox O2 Del Method 97.3 F L 72 18 118/55 L 97 Room Air 03/29/25 03:50 03/29/25 03:50 03/29/25 03:50 03/29/25 03:50 03/29/25 03:50 03/29/25 03:50 Oxygen Delivery Method Room Air Weight: 349 lb Body Mass Index (BMI) 51.5 Intake & Output: Intake and Output for Last 24 Hours 03/27/25 03/28/25 03/29/25 23:59 23:59 23:59 Intake Total 1782.33 / 1782.33 Output Total 4100 / 4100 Balance -2317.67 / -2317.67 Lab / Micro Data Attestation: I reviewed the patient's lab results. 03/29/25 05:32 Labs: Laboratory Results - last 24 hr 03/28/25 10:55: Screen NEGATIVE, Baby's Blood Type A POSITIVE, Baby's SAGE NEGATIVE 03/29/25 05:30: POC Glucose 77 03/29/25 05:32: WBC 12.2 H, RBC 3.64 L, Hgb 9.9 L, Hct 30.4 L, MCV 83.5, MCH 27.2, MCHC 32.6, RDW Std Deviation 47.1 H, RDW Coeff of Anoop 15.5 H, Plt Count 211, MPV 10.6 ROS Constitutional Constitutional: Reports systems reviewed and no addt'l complaints, except as documented; Denies anorexia or headache(s) Cardiovascular Cardiovascular: Reports systems reviewed and no addt'l complaints, except as documented; Denies dizziness, dyspnea, nausea or tachypnea Respiratory/Chest Respiratory/Chest: Reports systems reviewed and no addt'l complaints, except as documented; Denies cough, dyspnea, shortness of breath at rest or tachypnea Gastrointestinal Gastrointestinal: Reports systems reviewed and no addt'l complaints, except as documented; Denies abdominal pain, constipation or nausea Genitourinary Genitourinary: Reports systems reviewed and no addt'l complaints, except as documented; Denies burning urination, difficulty urinating, dysuria, urinary frequency or urinary incontinence Musculoskeletal Musculoskeletal: Reports systems reviewed and no addt'l complaints, except as documented Integumentary Integumentary: Reports systems reviewed and no addt'l complaints, except as documented Neurologic Neurologic: Reports systems reviewed and no addt'l complaints, except as documented; Denies abnormal speech, dizziness or headache(s) Psychiatric Psychiatric: Reports systems reviewed and no addt'l complaints, except as documented Endocrine Endocrinology: Reports systems reviewed and no addt'l complaints, except as documented Hematologic/Lymphatic Hematologic/Lymphatic: Reports systems reviewed and no addt'l complaints, exceptas documented Physical Exam Const alert, oriented x3 and no apparent distress Neck full ROM Resp normal respiratory effort, normal air movement and no retractions Effort and Inspection: able to speak in complete sentences and symmetric chest movement GI soft to palpation Bladder / Kidney Exam: bladder normal to palpation Uterus Palpation: uterus fundus firm Extremity normal to inspection and full ROM Psych mental status grossly normal, thought process normal and cooperative Assessment & Plan (1) delivery delivered: COMMENT: RLTCS 37 polyhydramnios PLAN: s/p LTCS PPD # 1 1. routine post care 2. breast feeding- support given 3. rh positive 4. rubella immune (2) Breech presentation: COMMENT: at 34 weeks per MFM (3) Macrosomia affecting management of mother, antepartum: COMMENT: EFW 3205 at 34 weeks per MFM, QID glucose testing (4) Polyhydramnios affecting : COMMENT: MIKE 36 at 34 weeks per MFM. QID glucose testing. twice weekly ANFS-BPP and NST. Consult with MFM ordered. deliver at 37 weeks scheduled for 03/28 @ 7:15 with SM (5) Abnormal glucose affecting : COMMENT: nl 3 hr GTT (6) Advanced maternal age (AMA) in : (7) Supervision of high-risk : QUALIFIERS: Trimester: second trimester Qualified Code(s): O09.92- Supervision of high risk , unspecified, second trimester COMMENT: PRR, , MEET 04/17/25, boy Agustín Warner, Froilan (8) : QUALIFIERS: Weeks of gestation: 36 weeks Qualified Code(s): Z3A.36 - 36 weeks gestation of COMMENT: elects NIPT with gender, insufficient DNA X 2; AFP Neg. Nmlanatomy. (9) Rh negative state in antepartum period: COMMENT: O-, Rhogam @ 28 wks, Given 01/24/25 (10) Pre-existing severe obesity in mother affecting : COMMENT: nl 1 tm hga1c. recommend weekly bpps 34 on, growth US 32 and 36. Charges/Coding Multi Select Codes Urinary/Genital Urinary/Genital CPT Codes: No Charge 03/29/25 0821 Cosigner Signature (if applicable): CC: ~ Signed [facility]09-14-2025 History and physical note Author Fiordaliza Zhong [facility] Note Date/Time March 27, 2025 12:28pm [facility] Medical Records Department [address] [place] [address] History & Physical Exam 03/27/25 1227 MR#: [id number] Acct: [id number] Name: DEMETRIUS FERNANDES Rep #:[id number] : 1990 34 From: Fiordaliza moctezuma MD PCP: Dr. Delmar Luna MD Status :PRE IN Location: [facility] History and Physical Date of Admission: 03/28/25 Vital Signs 03/24/2509:10 03/24/2510:26 Height 5 ft 9 in 5 ft 9 in Weight: 345 lb 9 oz BMI 51.0 BP 132/76 H Intake Visit Reasons: 37wk ob before csection *per Linoleum Printer Required: No Is patient in pain?: No Allergies No Known Allergies Allergy (Verified 03/24/25 10:32) Medications ?Medication ?Instructions ?Recorded ?Confirmed ?Type multivitamin no.47-iron fum 27 1 cap PO DAILY 08/29/20 History mg-folate no.1 1 mg-dha 300 mg capsule (PNV-DHA) famotidine 40 mg tablet (Pepcid) 40 mg PO BID PRN heartburn #30 tabs 09/0703/24/25 Rx alcohol swabs (Alcohol Wipes) 1 pad topical DAILY #100 ea 03/07/2506/07 Rx blood sugar diagnostic (Advanced #100 ea 03/07/25 03/24/25 Rx Glucose Meter Test Strips) flash glucose scanning reader #1 ea 03/07/25 03/24/25 Rx (FreeStyle Hardeep 2 [place]) lancets #200 ea 03/07/25 03/24/25 Rx Last Menstrual Period: 07/11/24 Zika: Zika virus screening: Negative : No PFSH PFSH Medical History Asthma Seasonal allergies Tilted uterus Abnormal Pap smear of cervix Surgical History History of elective History of tonsillectomy Family History Grandfather Diabetes Paternal Type 2Uncle AA (aortic aneurysm) Brain- MaternalGrandmother AA (aortic aneurysm) Paternal Social History adopted: No household members: spouse and children housing: house number of children: 1 current occupational status: employed and unemployed current occupation: [employer] current occupational exposures/hazards: No pets [...] 1-2 times per week duration: 30-45 minutes/day parul/adventism: None seatbelt use: always do you feel [...] Lgth Anesthesia Del Locat Provider FOB 04/14/21 [place] 41 live - full term 8#2oz Mal e epidural [facility] GP Froilan Delivery Date: 04/14/21 Last [...] Pres Dilation -?-?-?-?-?-?-?-?-?-?-?-?- Effaced St Visit Note 09/23/24-?-?-?-?-?-?-?-?-?-?-?-?- 10w 4d 309 lb 4 oz(+4 oz) 121/67 -?-?-?-?-?-?-?-?-?-?-?-?- 168 -?-?-?-?-?-?-?-?-?-?-?-?- KW- CRL cons with dates. accepts NIPT-very concerned about weight with this KW- CRL cons with dates. accepts NIPT-very concerned about weight with this . [facility] anatomy order placed 10/22/24-?-?-?-?-?-?-?-?-?-?-?-?- 14w 5d 312 lb 2 oz(+3 lb 2 oz) 119/76 Negative -?-?-?-?-?-?-?--?-?-?-?-?- Negative 168 -?-?-?-?-?-?-?-?-?-?-?-?- JV- nipt was inconclusive. plan for afp between 17-21 weeks. anatomy scan with [facility]. 11/17/24-?-?-?-?-?-?-?-?-?-?-?-?- 18w 3d 317 lb 8 oz(+8 lb 8 oz) 126/80 Negative -?-?-?-?-?-?-?-?-?-?-?-?- Negative 148 -?-?-?-?-?-?-?-?-?-?-?-?- MH-No VB. Feeling flutters. Denies concerns. AFP today. 12/16/24-?-?-?-?-?-?-?-?-?-?-?-?- 22w 4d 320 lb(+11 lb) 119/69 Negative -?-?-?-?-?-?-?-?-?-?-?-?- Negative 145 -?-?-?-?-?-?-?-?-?-?-?-?- SM- no vb lof good fm no regular ctx 01/12/25-?-?-?-?-?-?-?-?-?-?-?-?- 26w 3d 328 lb 8 oz(+19 lb 8 oz) 130/82 Negative -?-?-?-?-?-?-?-?-?-?-?-?- Negative 147 27 -?-?-?-?-?-?-?-?-?-?-?-?- -No VB, LOF. Good FM. MH-No VB, LOF. Good FM. Heartburn more problematic. Rx sent 01/24/25-?-?-?-?-?-?-?-?-?-?-?-?- 28w 1d 331 lb 2 oz(+22 lb 2 oz) 124/72 Negative -?-?-?-?-?-?-?-?-?-?-?-?- Negative 141 29 -?-?-?-?-?-?-?-?-?-?-?-?- -No VB, LOF. Good Fm. Rhogam, tdap, 28wk labs pending. 02/07/25-?-?-?-?-?-?-?-?-?-?-?-?- 30w 1d 332 lb(+23 lb) 107/71 Negative -?-?-?-?-?-?-?-?-?-?-?-?- Negative 135 32 -?-?-?-?-?-?-?-?-?-?-?-?- JV- patient complains of upper back/flank pain on the left. She denies dysuria, hematuria, fevers or chills. She states that when she puts pressure there it feels better. we discussed trying a chiropractor and also some flexeril this week to see if her muscles may relax enough to get better. 02/22/25-?-?-?-?-?-?-?-?-?-?-?-?- 32w 2d 338 lb 1 oz(+29 lb 1 oz) 132/76 Negative -?-?-?-?-?-?-?-?-?-?-?-?- Negative 145 34 -?-?-?-?-?-?-?-?-?-?-?-?- KW- no vb/lof/ctx. good fm. still having upper back pain- information given for chiropractor. growth US end of month 03/09/25-?-?-?-?-?-?-?-?-?-?-?-?- 34w 3d 339 lb 6 oz(+30 lb 6 oz) 136/85 Negative -?-?-?-?-?-?-?-?-?-?-?-?- Negative 141 40 -?-?--?-?-?-?-?-?-?-?-?-?- JV- MIKE is 36.2, she is monitoring her glucose levels and 2 hrpp are so far elevated in the 140's . Dr. Cerrato wants to do her bpp next week and recommends delivery (will be section for breech) at 37 weeks. she is to have weekly bpps and nsts until then. Continue glucose monitoring. 03/21/25-?-?-?-?-?-?-?-?-?-?-?-?- 36w 1d 342 lb 6 oz(+33 lb 6 oz) 127/72 Negative -?-?-?-?-?-?-?-?-?-?-?-?- Negative 140 45 -?-?-?-?-?-?-?-?-?-?-?-?- SM - no vb lof good fm no reuglar ctx BS stable 03/24/25-?-?-?-?-?-?-?-?-?-?-?-?- 36w 4d 345 lb 9 oz(+36 lb 9 oz) 132/76 -?-?-?-?-?-?-?-?-?-?-?-?- 135 -?-?-?-?-?-?-?-?-?-?-?-?- SM- further questions answered, ready for csection ACOG First Trimester [...] General: cooperative, healthy appearing, comfortable and anxious HENMT Head: normal to inspection Nose: external nose [...] trimester Comment: PRR, , MEET 04/17/25, boy Agustín Warner, Froilan (7) : Status: Acute Qualifiers: [...] 34 on, growth US 32 and 36. plan RLTCS 37 weeks recommend by M due to polyhydramnios severe 03/27/25 1228 <Electronically signed by Fiordaliza Zhong MD> Cosigner Signature (if applicable): CC: Dr. Delmar Luna MD; Dr. Fiordaliza Zhong MD~ Signed [facility] Work Phone: [phone]) 259-664009-14-2025 History and physical note [facility] Medical Records Department [address] [place] [id number] History & Physical Exam 03/27/25 1227 MR#: [id number] Acct: [id number] Name: DEMETRIUS FERNANDES Rep #:[id number] : 1990 34 From: Fiordaliza moctezuma MD PCP: Dr. Delmar Luna MD Status :PRE IN Location: [facility] History and Physical Date of Admission: 03/28/25 Vital Signs 03/24/2509:10 03/24/2510:26 Height 5 ft 9 in 5 ft 9 in Weight: 345 lb 9 oz BMI 51.0 BP 132/76 H Intake Visit Reasons: 37wk ob before csection *per Linoleum Printer Required: No Is patient in pain?: No Allergies No Known Allergies Allergy (Verified 03/24/25 10:32) Medications ?Medication ?Instructions ?Recorded ?Confirmed ?Type multivitamin no.47-iron fum 27 1 cap PO DAILY 08/29/20 History mg-folate no.1 1 mg-dha 300 mg capsule (PNV-DHA) famotidine 40 mg tablet (Pepcid) 40 mg PO BID PRN heartburn #30 tabs 07/0 09/0703/24/25 Rx alcohol swabs (Alcohol Wipes) 1 pad topical DAILY #100 ea 03/07/2506/07 Rx blood sugar diagnostic (Advanced #100 ea 03/07/25 03/24/25 Rx Glucose Meter Test Strips) flash glucose scanning reader #1 ea 03/07/25 03/24/25 Rx (FreeStyle Hardeep 2 [place]) lancets #200 ea 03/07/25 03/24/25 Rx Last Menstrual Period: 07/11/24 Zika: Zika virus screening: Negative : No PFSH PFSH Medical History Asthma Seasonal allergies Tilted uterus Abnormal Pap smear of cervix Surgical History History of elective History of tonsillectomy Family History Grandfather Diabetes Paternal Type 2Uncle AA (aortic aneurysm) Brain- MaternalGrandmother AA (aortic aneurysm) Paternal Social History adopted: No household members: spouse and children housing: house number of children: 1 current occupational status: employed and unemployed current occupation: [employer] current occupational exposures/hazards: No pets and [...] 1-2 times per week duration: 30-45 minutes/day parul/adventism: None seatbelt use: always do you feel safe at home: Yes additional social history: - Froilan 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 Date Name GA/Weeks Outcome Route Bth Weight Infant Gen Labor Lgth Anesthesia Del Locatn Provider FOB 04/14/21 [place] 41 live - full term 8#2oz Mal e epidural [facility] GP Froilan Delivery Date: 04/14/21 Last [...] Pres Dilation -?-?-?-?-?-?-?-?-?-?-?-?- Effaced St Visit Note 09/23/24-?-?-?-?-?-?-?-?-?-?-?-?- 10w 4d 309 lb 4 oz(+4 oz) 121/67 -?-?-?-?-?-?-?-?-?-?-?-?- 168 -?-?-?-?-?-?-?-?-?-?-?-?- KW- CRL cons with dates. accepts NIPT-very concerned about weight with this KW- CRL cons with dates. accepts NIPT-very concerned about weight with this . MFM anatomy order placed 10/22/24-?-?-?-?-?-?-?-?-?-?-?-?- 14w 5d 312 lb 2 oz(+3 lb 2 oz) 119/76 Negative -?-?-?-?-?-?-?--?-?-?-?-?- Negative 168 -?-?-?-?-?-?-?-?-?-?-?-?- JV- nipt was inconclusive. plan for afp between 17-21 weeks. anatomy scan with MFM. 11/17/24-?-?-?-?-?-?-?-?-?-?-?-?- 18w 3d 317 lb 8 oz(+8 lb 8 oz) 126/80 Negative -?-?-?-?-?-?-?-?-?-?-?-?- Negative 148 -?-?-?-?-?-?-?-?-?-?-?-?- MH-No VB. Feeling flutters. Denies concerns. AFP today. 12/16/24-?-?-?-?-?-?-?-?-?-?-?-?- 22w 4d 320 lb(+11 lb) 119/69 Negative -?-?-?-?-?-?-?-?-?-?-?-?- Negative 145 -?-?-?-?-?-?-?-?-?-?-?-?- SM- no vb lof good fm no regular ctx 01/12/25-?-?-?-?-?-?-?-?-?-?-?-?- 26w 3d 328 lb 8 oz(+19 lb 8 oz) 130/82 Negative -?-?-?-?-?-?-?-?-?-?-?-?- Negative 147 27 -?-?-?-?-?-?-?-?-?-?-?-?- -No VB, LOF. Good FM. -No VB, LOF. Good FM. Heartburn more problematic. Rx sent 01/24/25-?-?-?-?-?-?-?-?-?-?-?-?- 28w 1d 331 lb 2 oz(+22 lb 2 oz) 124/72 Negative -?-?-?-?-?-?-?-?-?-?-?-?- Negative 141 29 -?-?-?-?-?-?-?-?-?-?-?-?- -No VB, LOF. Good Fm. Rhogam, tdap, 28wk labs pending. 02/07/25-?-?-?-?-?-?-?-?-?-?-?-?- 30w 1d 332 lb(+23 lb) 107/71 Negative -?-?-?-?-?-?-?-?-?-?-?-?- Negative 135 32 -?-?-?-?-?-?-?-?-?-?-?-?- JV- patient complains of upper back/flank pain on the left. She denies dysuria, hematuria, fevers or chills. She states that when she puts pressure there it feels better. we discussed trying a chiropractor and also some flexeril this week to see if her muscles may relax enough to get better. 02/22/25-?-?-?-?-?-?-?-?-?-?-?-?- 32w 2d 338 lb 1 oz(+29 lb 1 oz) 132/76 Negative -?-?-?-?-?-?-?-?-?-?-?-?- Negative 145 34 -?-?-?-?-?-?-?-?-?-?-?-?- KW- no vb/lof/ctx. good fm. still having upper back pain- information given for chiropractor. growth US end of month 03/09/25-?-?-?-?-?-?-?-?-?-?-?-?- 34w 3d 339 lb 6 oz(+30 lb 6 oz) 136/85 Negative -?-?-?-?-?-?-?-?-?-?-?-?- Negative 141 40 -?-?--?-?-?-?-?-?-?-?-?-?- JV- MIKE is 36.2, she is monitoring her glucose levels and 2 hrpp are so far elevated in the 140's .Dr. Cerarto wants to do her bpp next week and recommends delivery (will be section for breech) at 37 weeks. she is to have weekly bpps and nsts until then. Continue glucose monitoring. 03/21/25-?-?-?-?-?-?-?-?-?-?-?-?- 36w 1d 342 lb 6 oz(+33 lb 6 oz) 127/72 Negative -?-?-?-?-?-?-?-?-?-?-?-?- Negative 140 45 -?-?-?-?-?-?-?-?-?-?-?-?- SM - no vb lof good fm no reuglar ctx BS stable 03/24/25-?-?-?-?-?-?-?-?-?-?-?-?- 36w 4d 345 lb 9 oz(+36 lb 9 oz) 132/76 -?-?-?-?-?-?-?-?-?-?-?-?- 135 -?-?-?-?-?-?-?-?-?-?-?-?- SM- further questions answered, ready for csection ACOG First Trimester [...] Symptoms of Preeclampsia, Infant Feeding No , [place] Education and Family Medical Leave or Disability [...] General: cooperative, healthy appearing, comfortable and anxious [facility] Head: normal to inspection Nose: external nose normal Face and sinus: normal facial exam Neck Neck: normal visual inspection, full ROM and no lymphadenopathy Thyroid: thyroid normal Chest Chest palpation & inspection: normal inspection of the chest Resp Effort & Inspection: normal respiratory effort GI Inspection: normal to inspection Palpation: soft and other (gravid uterus) Other: vertex and appropriate size for gestational age [...] trimester Comment: PRR, , MEET 04/17/25, boy Agustín Warner, Froilan (7) : Status: Acute Qualifiers: [...] 34 on, growth US 32 and 36. plan RLTCS 37 weeks recommend by [facility] due to polyhydramnios severe 03/27/25 1228 Cosigner Signature (if applicable): CC: Dr. Delmar Luna MD; Dr. Fiordaliza Zhong MD~ Signed [facility]09-14-2025 [facility] Medical Records Department [address] [place] [address] History Physical Exam 03/27/25 1227 MR#: [id number] Acct: [id number] Name: DEMETRIUS FERNANDES Rep #: [id number] : 1990 34 From: Fiordaliza Zhong MD PCP: Dr. Delmar Luna MD Status:PRE IN Location: [facility] History and Physical Date of Admission: 03/28/25 Vital Signs 03/24/2509:10 03/24/2510:26 Height 5 ft 9 in 5 ft 9 in Weight: 345 lb 9 oz BMI 51.0 BP 132/76 H Intake Visit Reasons: 37wk ob before csection *per SM Linoleum Printer Required: No Is patient in pain?: No Allergies No Known Allergies Allergy (Verified 03/24/25 10:32) Medications ???Medication ???Instructions ???Recorded ???Confirmed ???Type multivitamin no.47-iron fum 27 1 cap PO DAILY 08/29/20 03/24/25 History mg-folate no.1 1 mg-dha 300 mg capsule (PNV-DHA) famotidine 40 mg tablet (Pepcid) 40 mg PO BID PRN heartburn #30 tabs 01/12/2503/24 Rx alcohol swabs (Alcohol Wipes) 1 pad topical DAILY #100 ea 03/07/25 03/24/25 Rx blood sugar diagnostic (Advanced #100 ea 03/07/25 03/24/25 Rx Glucose Meter Test Strips) flash glucose scanning reader #1 ea 03/07/25 03/24/25 Rx (FreeStyle Hardeep 2 [place]) lancets #200 ea 03/07/25 03/24/25 Rx Last Menstrual Period: 07/11/24 Zika: Zika virus screening: Negative : No PFSH PFSH Medical History Asthma Seasonal allergies Tilted uterus Abnormal Pap smear of cervix Surgical History History of elective History of tonsillectomy Family History Grandfather Diabetes Paternal Type 2Uncle AA (aortic aneurysm) Brain- MaternalGrandmother AA (aortic aneurysm) Paternal Social History adopted: No household members: spouse and children housing: house number of children: 1 current occupational status: employed and unemployed current occupation: [employer] current occupational exposures/hazards: No pets and [...] 1-2 times per week duration: 30-45 minutes/day parul/adventism: None seatbelt use: always do you feel safe at home: Yes additional social history: - 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 Date Name GA/Weeks Outcome Route Bth Weight Infant Gen Labor Lgth Anesthesia Del [facility] Provider FOB 04/14/21 [place] 41 live - full term 8#2oz Male epidura l [facility] GP Froilan Delivery Date: 04/14/21 Last [...] list details Initial Weight: 309 lb Date -???-???-???-???-???-???-???-???-???-???-???-???- EGA Weight BP Urine Prot -???-???-???-???-???-???-???-???-???-???-???-???- Glucose FHR FuHt Pres Dilation -???-???-???-???-???-???-???-???-???-???-???-???- Effaced (more content not included)...[facility]09-11-2025 Progress [facility] [address] [place] [address], [address] [place] [address] OFFICE VISIT Date of Service: 03/24/25 MR#: [id number] Acct: [id number] Name: DEMETRIUS FERNANDES Rep #: [id number] : 1990 Provider: Dr. Luther Zhong MD Age/Sex: 34/F Location: [facility] Status: Signed Intake Vital Signs 03/24/25 09:10 03/24/25 10:26 Height 5 ft 9 in 5 ft 9 in Weight: 345 lb 9 oz BMI 51.0 BP 132/76 H Intake Visit Reasons: 37wk ob before csection *per Linoleum Printer Required: No Is patient in pain?: No [...] ea 03/07/25 03/24/25 Rx (FreeStyle Hardeep 2 [place]) lancets #200 ea 03/07/25 03/24/25 Rx Last [...] occupational status: employed and unemployed current occupation: [employer] current occupational exposures/hazards: No pets and [...] 1-2 times per week duration: 30-45 minutes/day parul/adventism: None seatbelt use: always do you feel safe at home: Yes additional social history: - Froilan [employer] @ 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 Date Name GA/Weeks Outcome Route Bth Weight Infant Gen Labor Lgth Anesthesia Del Locatn Provider FOB 04/14/21 [place] 41 live - full term 8#2oz Male epidur al [facility] GP Froilan Delivery Date: 04/14/21 Last [...] NIPT-very concerned about weight with this . [facility] anatomy order placed 10/22/24 -?-?-?-?-?-?-?-?-?-?-?-?- 14w 5d 312 lb 2 oz (+3 lb 2 oz) 119/76 Negative -?-?-?-?-?-?-?-?-?-?-?-?- Negative 168 -?-?-?-?-?-?-?-?-?-?-?-?- JV- nipt was inc onclusive. plan for afp between 17-21 weeks. anatomy scan with [facility]. 11/17/24 -?-?-?-?-?-?-?-?-?-?-?-?- 18w 3d 317 lb [...] when she puts pressure there it feels better.we discussed trying a chiropractor and also some flexeril this week to see if her muscles may relaxenough to get better. 02/22/25 -?-?-?-?-?-?-?-?-?-?-?-?- 32w 2d 338 lb 1 oz (+29 lb 1 oz) 132/76 Negative -?-?-?-?-?-?-?-?-?-?-?-?- Negative 145 34 -?-?-?-?-?-?-?-?-?-?-?-?- - no vb/lof/ct x. good fm. still having [...] bpp next week and recommends delivery (will besection for breech) at 37 weeks. she is [...] General: cooperative, healthy appearing, comfortable and anxious HENMT Head: normal to inspection Nose: external nose normal Face and sinus: normal facial exam Neck Neck: normal visual inspection, full ROM and no lymphadenopathy Thyroid: thyroid normal Chest Chest palpation & inspection: normal inspection of the chest Resp Effort & Inspection: normal respiratory effort GI Inspection: normal to inspection Palpation: soft and other (gravid uterus) Other: vertex and appropriate size for gestational age [...] scheduled for 03/28 @ 7:15 with SM (4) Abnormal glucose affecting : Status: Acute Comment: nl 3 hr GTT (5) Advanced maternal age (AMA) in : Status: Acute (6) Supervision of high-risk : Status: Acute Qualifiers: Trimester: second trimester Qualified Code(s): O09.92 - Supervision of high risk , unspecified, second trimester Comment: PRR, , MEET 04/17/25, boy Agustín Warner, Froilan (7) : Status: Acute Qualifiers: [...] growth US 32 and 36. 03/24/25 1111 higinio MEDINA> Date _ Fiordaliza Zhong MD [facility] Signature: Date (if applicable) CC: ~ [facility]09-11-2025 Progress note [facility] Medical Records Department [address] [place] [address] OB Triage Progress Note 03/24/25 1004 MR#: [id number] Acct: [id number] Name: DEMETRIUS FERNANDES Rep #:[id number] : 1990 34 From: Fiordaliza moctezuma MD PCP: Dr. Delmar Luan MD Status :REG CLI Y DOS: Location: [place] [address] Progress Notes Date of Service: 03/24/25 Progress Note: Patient presents for triage evaluation secondary to polyhydramnios FHT: 135 Moderate variability reactive no decelerations category I tracing [place]: no regular Contractions Assessment and plan: 36 weeks severe polyhydramnios Reactive NST, reassuring maternal and status patient discharged to home to follow-up as scheduled. See problem list details for additional plan information. Charges/Coding Procedures Urinary/Genital 52xxx-59xxx: 42988-41 non-stress test Interp 03/24/25 Cleo sylvester MD> Date _ Fiordaliza Zhong MD Cosigner Signature (if applicable): Date CC: Dr. Delmar Luna MD; Dr. Fiordaliza Zhong MD ~ Signed [facility]09-08-2025 Progress [facility] [address], [address] [place] [address] OFFICE VISIT Date of Service: 03/21/25 MR#: [id number] Acct: [id number] Name: DEMETRIUS FERNANDES Rep #: [id number] : 1990 Provider: Dr. Luther Zhong MD Age/Sex: 34/F Location: [facility] Status: Signed Intake Vital Signs 01/24/25 08:40 03/09/25 10:29 03/15/25 10:40 03/21/25 10:29 Height 5 ft 9 in 5 ft 9 in 5 ft 9 in 5 ft 9 in Weight: 342 lb 6 oz BMI 50.5 BP 127/72 H Intake Visit Reasons: 36 wk ob Linoleum Printer Required: No Is patient in pain?: No [...] ea 03/07/25 03/21/25 Rx (FreeStyle Hardeep 2 [place]) lancets #200 ea 03/07/25 03/21/25 Rx Last [...] occupational status: employed and unemployed current occupation: [employer] current occupational exposures/hazards: No pets and animals: [...] 1-2 times per week duration: 30-45 minutes/day praul/adventism: None seatbelt use: always do you feel safe at home: Yes additional social history: - 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 Date Name GA/Weeks Outcome Route Bth Weight Gen Labor Lgth Anesthesia Del Locatn Provider FOB 04/14/21 [place] 40 live - full term 8#2oz Male epidur al [facility] GP Froilan Delivery Date: 04/14/21 Last [...] NIPT-very concerned about weight with this . [facility] anatomy order placed 10/22/24 -?-?-?-?-?-?-?-?-?-?-?-?- 14w 5d 312 lb 2 oz (+3 lb 2 oz) 119/76 Negative -?-?-?-?-?-?-?-?-?-?-?-?- Negative 168 -?-?-?-?-?-?-?-?-?-?-?-?- JV- nipt was inc onclusive. plan for afp between 17-21 weeks. anatomy scan with [facility]. 11/17/24 -?-?-?-?-?-?-?-?-?-?-?-?- 18w 3d 317 lb [...] 130/82 Negative -?-?-?-?-?-?-?-?-?-?-?-?- Negative 147 27 -?-?-?-?-?-?-?-?-?-?-?-?- MH-No VB, LOF. G ood FM. MH-No VB, LOF. Good FM. Hear tburn more [...] when she puts pressure there it feels better.we discussed trying a chiropractor and also some flexeril this week to see if her muscles may relaxenough to get better. 02/22/25 -?-?-?-?-?-?-?-?-?-?-?-?- 32w 2d 338 lb 1 oz (+29 lb 1 oz) 132/76 Negative -?-?-?-?-?-?-?-?-?-?-?-?- Negative 145 34 -?-?-?-?-?-?-?-?-?-?-?-?- - no vb/lof/ct x. good fm. still having [...] bpp next week and recommends delivery (will besection for breech) at 37 weeks. she is [...] Comment: PRR, , MEET 04/17/25, boy RAEGAN Warner, Froilan (7) : Status: Acute Qualifiers: [...] risk , unspecified, second trimester 03/21/25 1106 ihginio MEDINA> Date _ Fiordaliza Zhong MD Cosign Signature: Date (if applicable) CC: ~ [facility]09-02-2025 Progress note [facility] Medical Records Department [address] [place] [address] OB Triage Progress Note 03/15/25 1110 MR#: [id number] Acct: [id number] Name: DEMETRIUS FERNANDES Rep #:[id number] : 1990 34 From: Fiordaliza moctezuma MD PCP: Dr. Delmar Luna MD Status :REG CLI Y DOS: Location: [place] [address] Progress Notes Date of Service: 03/15/25 Progress Note: Patient presents for triage evaluation secondary to polyhydramnios FHT: 130-135 Moderate variability reactive no decelerations category I tracing Dysart: no regular Contractions Assessment and plan: polyhydramnios 35 weeks Reactive NST, reassuring maternal and status patient discharged to home to follow-up as scheudled. See problem list details for additional plan information. Charges/Coding Procedures Urinary/Genital 52xxx-59xxx: 51337-11 non-stress test Interp Assessment & Plan (1) [...] X 2; AFP Neg. Nmlanatomy. 03/15/25 1112 higinio MEDINA> Date _ Fiordaliza Zhong MD [facility] Signature (if applicable): Date CC: Dr. Delmar Luna MD; Dr. Fiordaliza Zhong MD ~ Signed [facility]08-12-2025 Progress [facility] [address], [address] [place] [address] OFFICE VISIT Date of Service: 02/22/25 MR#: [id number] Acct: [id number] Name: DEMETRIUS FERNANDES Rep #: [id number] : 1990 Provider: ZACHARY Rich Age/Sex: 34/F Location: [facility] Status: Signed Intake Vital Signs 01/12/25 09:43 02/07/25 09:25 02/22/25 10:03 Height 5 ft 9 in 5 ft 9 in 5 ft 9 in Weight: 338 lb 1 oz BMI 49.9 BP 132/76 H Intake Visit Reasons: 32 wk ob Chief Complaint: 32 wk OB Linoleum Printer Required: No Is patient in pain?: No [...] occupational status: employed and unemployed current occupation: [employer] current occupational exposures/hazards: No pets and [...] 1-2 times per week duration: 30-45 minutes/day parul/adventism: None seatbelt use: always do you feel safe at home: Yes additional social history: - 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 Date Name GA/Weeks Outcome Route Bth Weight Infant Gen Labor Lgth Anesthesia Del Locatn Provider FOB 04/14/21 [place] 40 live - full term 8#2oz Male epidur al [facility] GP Froilan Delivery Date: 04/14/21 Last [...] when she puts pressure there it feels better.we discussed trying a chiropractor and also some flexeril this week to see if her muscles may relaxenough to get better. 02/22/25 -?-?-?-?-?-?-?-?-?-?-?-?- 32w 2d [...] and Symptoms of Preeclampsia, Feeding No , [place] Education and Family Medical Leave or Disability [...] information and see below for orders placed atthis visit. GA appropriate handout given. Clinical Quality Measures Falls Risk Screening/Assistive Devices Have you fallen in the past year?: No 02/22/25 1018 s ZACHARY> Date _ Greg Rich CNM Cosigner Signature: Date (if applicable) CC: ~ [facility]06-05-2025 Evaluation note* Diagnosis Onset Date Resolution Status [...] March 09, 10:00am Rh negative state in antepar caroline period acute March 09 10:00am Supervision of high-risk acute March 09 10:00am Breech presentation acute 2024 10:20am Macrosomia affecting managem ent of mother, antepartum acute March 15, 2025 10:20am Polyhydramnios affecting acute March 15 10:20am acute March 15, 2025 10:20am Supervision of high-risk acute March 15 10:20am Abnormal glucose affecting acute March 21 10:17am Advanced maternal age (AMA) in acute [...] Supervision of high-risk acute March 21 10:17am [facility] Work Phone: 1(463) 948-496306-05-2025 Evaluation note* Diagnosis Onset Date Resolution Status [...] February 22 9:59am Rh negative state in antepar caroline [...] 15, 2025 10:20am Polyhydramnios affecting acute March 15 10:20am acute March 15, 2025 10:20am Supervision of high-risk acute March 15 10:20am Abnormal glucose affecting acute March 21 10:17am Advanced maternal age (AMA) in acute [...] of high-risk acute March 24, 2025 10:17am [facility] Work Phone: 1(886) 203-541306-05-2025 Evaluation note* Diagnosis Onset Date Resolution Status [...] affecting acute January 24, 2025 8:22am acute [place] 14th, 202 5 8:22am Rh negative state in antepar caroline [...] February 22 9:59am Rh negative state in antepar caroline [...] affecting acute 2024 8:54am acute March 09, 025 8:54am Rh negative state in antepar [...] Pre-existing severe obesity in mother affecting acute Aug2024 10:00am acute March 09 10:00am Rh negative state in antepar caroline period acute March 09 10:00am Supervision of high-risk acute March 09 10:00am Breech presentation acute 2024 10:20am Macrosomia affecting managem ent of mother, antepartum acute March 15, 2025 10:20am Polyhydramnios affecting acute March 15 10:20am acute March 15, 2025 10:20am Supervision of high-risk acute March 15 10:20am Abnormal glucose affecting acute March 21 10:17am Advanced maternal age (AMA) in acute [...] of high-risk acute March 24, 2025 10:17am Abnormal glucose affecting acute March 28, 2025 5:47am Advanced maternal age (AMA) in acute March 28, 2025 5:47am Breech presentation acute mber 2024 5:47am delivery delivered acute March 28, 2025 5:47am Macrosomia affecting managem ent of mother, antepartum acute March 28, 2025 5:47am Polyhydramnios affecting acute March 28, 2025 5:47am Pre-existing severe obesity in mother affecting acute [facility] 2024 5:47am acute March 5:47am Rh negative state in antepar caroline period acute March 28, 2025 5:47am Supervision of high-risk acute March 28, 2025 5:47[address] [facility] Work Phone: 1(382) 665-238006-05-2025 Progress [facility] [address] [place] [address], [address] [place] [address] OFFICE VISIT Date of Service: 12/16/24 MR#: [id number] Acct: [id number] Name: DEMETRIUS FERNANDES Rep #: [id number] : 1990 Provider: Dr. Luther Zhong MD Age/Sex: 34/F Location: [facility] Status: Signed Intake Vital Signs 09/23/24 09:08 [...] occupational status: employed and unemployed current occupation: [employer] current occupational exposures/hazards: No pets and [...] 1-2 times per week duration: 30-45 minutes/day parul/adventism: None seatbelt use: always do you feel safe at home: Yes additional social history: - Froilan [facility] @ [employer] [facility] 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 Date Name GA/Weeks Outcome Route Bth Weight Infant Gen Labor Lgth Anesthesia Del Locatn Provider FOB 04/14/21 [place] 40 live - full term 8#2oz Male epidur al [facility] GP Froilan Delivery Date: 04/14/21 Last [...] Cosign Signature: Date (if applicable) CC: ~ [facility]05-07-2025 Evaluation note* Diagnosis Onset Date Resolution Status [...] Supervision of high-risk acute February 22 9:59am [facility] Work Phone: 1(902) 679-959705-07-2025 Evaluation note* Diagnosis Onset Date Resolution Status [...] affecting acute 2024 8:54am acute March 09, 025 8:54am Rh negative state in antepar caroline period acute March 09 8:54am Supervision of high-risk acute March 09 8:54am [facility] Work Phone: 1(803) 651-780405-07-2025 Evaluation note* Diagnosis Onset Date Resolution Status [...] Rh negative state in antepartum period acute [place] 27th, 2 025 8:54am Supervision of high-risk acute March 09 [...] Supervision of high-risk acute March 15, 10:20am [facility] Work Phone: 1(465) 330-843804-11-2025 Evaluation note* Diagnosis Onset Date Resolution Status [...] of high-risk acute January 24, 2025 8:22am [facility] Work Phone: 1(339) 184-576504-11-2025 Evaluation note* Diagnosis Onset Date Resolution Status [...] of high-risk acute February 07, 2025 9:17am [facility] Work Phone: 1([phone]) 225-301203-13-2025 NotePap Smear Specimen AdequacyMarch 2024 11:59pmComment.Satisfactory for evaluation. No endocervical component is identified.An endocervical component is not commonly seen in the patient.[facility] INTERFACED A#[id number]. Vincent HospitalComment on above: Satisfactory for evaluation. No endocervical component is identified.An endocervical component is not commonly seen in the patient.09-23-2024 NotePap Smear Specimen AdequacyMar 2024 11:59pmComment.Satisfactory for evaluation. No endocervical component is identified.An endocervical component is not commonly seen in the patient.[facility] INTERFACED A#[id number] Marion General HospitalComment on above:Satisfactory for evaluation. No endocervical [...] of high-risk acute September 23, 2024 8:56am [facility] Work Phone: 1(270) 706-544903-13-2025 Evaluation note* Diagnosis Onset Date Resolution Status [...] high-risk acute November 17, 2024 8: 37am [facility] Work Phone: 1([phone]) 565-962403-13-2025 Evaluation note* Diagnosis Onset Date Resolution Status [...] high-risk acute December 16, 2024 9 :02am [facility] Work Phone: Evaluation noteNo assessment information available [facility] Work Phone: Hospital Discharge instructionsAdditional Instructions Scheduled non-stress tests in WP: Friday, Mar.16 9am Friday, [facility]am[facility] Work Phone: Progress note Author Fiordaliza Zhong [facility] Note Date/Time December 16, 2024 9:30a m [facility] [address] [place] [address], [address] [place] [address] OFFICE VISIT Date of Service: 12/16/24 MR#: [id number] Acct: [id number] Name: DEMETRIUS FERNANDES Rep #: [id number] : 1990 Provider: Dr. 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 Date Name GA/Weeks Outcome Route Bth Weight Gen Labor Lgth Anesthesia Del Locatn Provider FOB 04/14/21 [place] 40 live - full term 8#2oz Male epidur al [facility] GP Froilan Delivery Date: 04/14/21 Last [...] Symptoms of Preeclampsia, Infant Feeding No , [place] Education and Family Medical Leave or Disability [...] Cosigner Signature: Date (if applicable) CC: ~ [facility] Work Phone: Progress note Author Greg Layla [facility] Note Date/Time February 22, 2025 10 :18am [facility] [address] [place] [address], [address] [place] [address] OFFICE VISIT Date of Service: 02/22/25 MR#: [id number] Acct: [id number] Name: DEMETRIUS FERNANDES Rep #: [id number] : 1990 Provider: ZACHARY Rich Age/Sex: 34/F Location: [facility] Status: Signed Intake Vital Signs 01/12/25 09:43 02/07/25 09:25 02/22/25 10:03 Height 5 ft 9 in 5 ft 9 in 5 ft 9 in Weight: 338 lb 1 oz BMI 49.9 BP 132/76 H Intake Visit Reasons: 32 wk ob Chief Complaint: 32 wk OB Linoleum Printer Required: No Is patient in pain?: No [...] occupational status: employed and unemployed current occupation: [employer] current occupational exposures/hazards: No pets and [...] 1-2 times per week duration: 30-45 minutes/day parul/adventism: None seatbelt use: always do you feel safe at home: Yes additional social history: - 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 Date Name GA/Weeks Outcome Route Bth Weight Infant Gen Labor Lgth Anesthesia Del [facility] Provider FOB 04/14/21 [place] 41 live - full term 8#2oz Male epidur al [facility] GP Froilan Delivery Date: 04/14/21 Last [...] NIPT-very concerned about weight with this . [facility] anatomy order placed 10/22/24 -?-?-?-?-?-?-?-?-?-?-?-?- 14w 5d 312 lb 2 oz (+3 lb 2 oz) 119/76 Negative -?-?-?-?-?-?-?-?-?-?-?-?- Negative 168 -?-?-?-?-?-?-?-?-?-?-?-?- JV- nipt was inc onclusive. plan for afp between 17-21 weeks. anatomy scan with [facility]. 11/17/24 -?-?-?-?-?-?-?-?-?-?-?-?- 18w 3d 317 lb 8 [...] Cosigner Signature: Date (if applicable) CC: ~ [facility] Work Phone: Progress note Author Fiordaliza Zhong [facility] Note Date/Time March 15, 2025 11:12am [facility] Medical Records Department [address] [place] [address] OB Triage Progress Note 03/15/25 1110 MR#: [id number] Acct: [id number] Name: DEMETRIUS FERNANDES Rep #:[id number] : 1990 34 From: Fiordaliza moctezuma MD PCP: Dr. Delmar Luna MD Status :REG CLI Y DOS: Location: [place] [address] Progress Notes Date of Service: 03/15/25 Progress Note: Patient presents for triage evaluation secondary to polyhydramnios FHT: 130-135 Moderate variability reactive no decelerations category I tracing Dysart: no regular Contractions Assessment and plan: polyhydramnios 35 weeks Reactive NST, reassuring maternal and status patient discharged to home to follow-up as scheudled. See problem list details for additional plan information. Charges/Coding Procedures Urinary/Genital 52xxx-59xxx: 92863-59 non-stress test Interp Assessment & Plan (1) [...] MD; Dr. Fiordaliza Zhong MD ~ Signed [facility] Work Phone: Progress note Author Fiordaliza Zhong [facility] Note Date/Time March 21, 2025 11:06am [facility] [address] [place] [address], [address] [place] [address] OFFICE VISIT Date of Service: 03/21/25 MR#: [id number] Acct: [id number] Name: DEMETRIUS FERNANDES Rep #: [id number] : 1990 Provider: Dr. Luther Zhong MD Age/Sex: 34/F Location: [facility] Status: Signed Intake Vital Signs 01/24/25 08:40 03/09/25 10:29 03/15/25 10:40 03/21/25 10:29 Height 5 ft 9 in 5 ft 9 in 5 ft 9 in 5 ft 9 in Weight: 342 lb 6 oz BMI 50.5 BP 127/72 H Intake Visit Reasons: 36 wk ob Linoleum Printer Required: No Is patient in pain?: No [...] ea 03/07/25 03/21/25 Rx (FreeStyle Hardeep 2 [place]) lancets #200 ea 03/07/25 03/21/25 Rx Last [...] occupational status: employed and unemployed current occupation: [employer] current occupational exposures/hazards: No pets and [...] 1-2 times per week duration: 30-45 minutes/day parul/adventism: None seatbelt use: always do you feel safe at home: Yes additional social history: - Froilan 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 Date Name GA/Weeks Outcome Route Bth Weight Infant Gen Labor Lgth Anesthesia Del [facility] Provider FOB 04/14/21 [place] 41 live - full term 8#2oz Male epidur al [facility] GP Froilan Delivery Date: 04/14/21 Last [...] NIPT-very concerned about weight with this . [facility] anatomy order placed 10/22/24 -?-?-?-?-?-?-?-?-?-?-?-?- 14w [...] 141 29 -?-?-?-?-?-?-?-?-?-?-?-?- -No VB, LOF. G ojill Fm. Rhogam, tdap, 28wk labs pending. 02/07/25 [...] ordered. deliver at 37 weeks scheduled for 9/15 @ 7:15 with SM (4) Abnormal glucose affecting : Status: Acute [...] Cosigner Signature: Date (if applicable) CC: ~ [facility] Work Phone: Progress note Author Fiordaliza Zhong [facility] Note Date/Time March 24, 2025 10:05am [facility] Medical Records Department [address] [place] [address] OB Triage Progress Note 03/24/25 1004 MR#: [id number] Acct: [id number] Name: DEMETRIUS FERNANDES Rep #:[id number] : 1990 34 From: Fiordaliza moctezuma MD PCP: Dr. Delmar Luna MD Status :REG CLI Y DOS: Location: [place] [id number] Progress Notes Date of Service: 03/24/25 Progress Note: Patient presents for triage evaluation secondary to polyhydramnios FHT: 135 Moderate variability reactive no decelerations category I tracing Dysart: no regular Contractions Assessment and plan: 36 weeks severe polyhydramnios Reactive NST, reassuring maternal and status patient discharged to home to follow-up as scheduled. See problem list details for additional plan information. Charges/Coding Procedures Urinary/Genital 52xxx-59xxx: 68891-74 non-stress test Interp 03/24/25 1005 <Electronically signed by Fiordaliza sylvester MD> Date _ Fiordaliza Zhong MD Cosigner Signature (if applicable): Date CC: Dr. Delmar Luna MD; Dr. Fiordaliza Zhong MD ~ Signed [facility] Work Phone: Progress note Author Fiordaliza Zhong [facility] Note Date/Time March 24, 2025 11:11am [facility] [address] [place] [address], [address] [place] [address] OFFICE VISIT Date of Service: 03/24/25 MR#: [id number] Acct: [id number] Name: DEMETRIUS FERNANDES Rep #: [id number] : 1990 Provider: Dr. Luther Zhong MD Age/Sex: 34/F Location: [facility] Status: Signed Intake Vital Signs 03/24/25 09:10 03/24/25 10:26 Height 5 ft 9 in 5 ft 9 in Weight: 345 lb 9 oz BMI 51.0 BP 132/76 H Intake Visit Reasons: 37wk ob before csection *per Linoleum Printer Required: No Is patient in pain?: No [...] scanning reader #1 ea 03/07/25 03/24/25 Rx (Voölksyle Hardeep 2 [place]) lancets #200 ea 03/07/25 03/24/25 Rx Last [...] occupational status: employed and unemployed current occupation: [employer] current occupational exposures/hazards: No pets [...] 1-2 times per week duration: 30-45 minutes/day parul/adventism: None seatbelt use: always do you feel [...] Lgth Anesthesia Del Locatn Provider FOB 04/14/21 [place] live - full term 8#2oz Male epidur al [facility] GP Froilan Delivery Date: 04/14/21 Last [...] NIPT-very concerned about weight with this . [facility] anatomy order placed 10/22/24 -?-?-?-?-?-?-?-?-?-?-?-?- 14w 5d 312 lb 2 oz (+3 lb 2 oz) 119/76 Negative -?-?-?-?-?-?-?-?-?-?-?-?- Negative 168 -?-?-?-?-?-?-?-?-?-?-?-?- JV- nipt was inc onclusive. plan for afp between 17-21 weeks. anatomy scan with [facility]. 11/17/24 -?-?-?-?-?-?-?-?-?-?-?-?- 18w 3d 317 lb [...] Symptoms of Preeclampsia, Infant Feeding No , [place] Education and Family Medical Leave or Disability [...] General: cooperative, healthy appearing, comfortable and anxious HENMT Head: normal to inspection Nose: external nose [...] trimester Comment: PRR, , MEET 04/17/25, boy Agustín Gillespieer, Froilan (6) : Status: Acute Qualifiers: Weeks [...] sylvester MD> Date _ Fiordaliza Zhong MD [facility] Signature: Date (if applicable) CC: ~ [facility] Work Phone: Reason for referral (narrative)No reason for referral information availableWKettering Health [facility] Work Phone: Chief Complaint and [...] 6am Rh negative state in antepartum period [facility] 2024 8:56am Spider veins of both lower extremities [facility] 2024 8:56am Supervision of high-risk September 23, 2024 8:56am Advanced maternal age (AMA) in October 22, 2024 10:13am Former smoker, stopped smoking in October 22, 2024 10:13am Pre-existing severe obesity in mother af fecting October 22, 2024 10:13am October 22, 2024 10: 13am Rh negative state in antepartum period A pri2024 10:13am Spider veins of both lower extremities [...] 2024 10:13am Former smoker, stopped smoking in t past October 22, 2024 10:13am Spider veins of both lower extremities A pril 2024 10:13am Advanced maternal age (AMA) in November 17, 2024 8:37am Pre-existing severe obesity in mother af fecting November 17, 2024 8:37am November 17, 2024 8:37am Rh negative state in antepartum period M ay 2024 8:37am Supervision of high-risk November 172024 8:37am Former smoker, stopped smoking in [employer] t past November 17, 2024 8:37am Spider veins of both lower extremities M ay 2024 8:37am Advanced maternal age (AMA) in December 16, 2024 9:02am Pre-existing severe obesity in mother af fecting December 16, 2024 9:02am December 16, 2024 9:02a m Rh negative state in antepartum period J [facility] 2024 9:02am Supervision of high-risk December 16, [...] Rh negative state in antepartum period J [facility] 2024 8:22am Supervision of [...] Rh negative state in antepartum period J [facility] 2024 9:02am Supervision of high-risk December 16, [...] Rh negative state in antepartum period J [facility] 2024 9:17am Supervision of [...] Rh negative state in antepartum period J [facility] 2024 9:02am Supervision of high-risk December 16, 2024 9:02am Advanced maternal age (AMA) in January 12, 2025 9:40am Pre-existing severe obesity in mother af fecting January 12, 2025 9:40am January 12, 2025 9:40a m Rh negative state in antepartum period J [facility] 2024 9:40am Supervision of high-risk January 12, 2025 9:40am Advanced maternal age (AMA) in January 24, 2025 8:22am Pre-existing severe obesity in mother af fecting January 24, 2025 8:22am January 24, 2025 8:22 am Rh negative state in antepartum period J [facility] 2024 8:22am Supervision of [...] Rh negative state in antepartum period J [facility] 2024 9:02am Supervision of high-risk December 16, [...] A ugust 2024 9:59am Supervision of high-risk 2024 9:59am Abnormal glucose affecting Feb us2024 8:54am Advanced maternal age (AMA) in March 09, 2025 8:54am Breech presentation March 09, 2025 8: 54am Macrosomia affecting management of mothe r, antepartum March 09, 2025 8:54am Polyhydramnios affecting Augus t 27th, 2025 8:54am Pre-existing severe obesity in mother af [...] Rh negative state in antepartum period J [facility] 2024 9:02am Supervision of high-risk December 16, [...] Rh negative state in antepartum period J [facility] 2024 8:22am Supervision of high-risk January 24, 2025 8:22am Abnormal glucose affecting Axel 2024 9:17am Advanced maternal age (AMA) in February 07, 2025 9:17am Pre-existing severe obesity in mother af fecting February 07, 2025 9:17am February 07, 2025 9:17 am Rh negative state in antepartum period J [facility] 2024 9:17am Supervision of [...] Rh negative state in antepartum period A [facility] 2024 8:54am Supervision of high-risk Augus [...] Rh negative state in antepartum period A [facility] 2024 10:00am Supervision of high-risk Augus t 2024 10:00am Breech presentation March 15, 2025 10:20am Macrosomia affecting management of mothe r, antepartum March 15, 2025 10:20am Polyhydramnios affecting Septe [facility] 2024 10:20am March 15, 2025 10:20am Supervision of high-risk Septe [facility] 2024 10:20am Chief Complaint Admit Date 22wk [...] Rh negative state in antepartum period J [facility] 2024 9:02am Supervision of high-risk December 16, [...] Rh negative state in antepartum period J [facility] 2024 8:22am Supervision of [...] Rh negative state in antepartum period A [facility] 2024 8:54am Supervision of high-risk Augus [...] Rh negative state in antepartum period A [facility] 2024 10:00am Supervision of high-risk Augus 2024 10:00am Breech presentation March 15, 2025 10:20am Macrosomia affecting management of mothe r, antepartum March 15, 2025 10:20am Polyhydramnios affecting Septe [facility] 2024 10:20am March 15, 2025 10:20am Supervision of high-risk Septe [facility] 2024 10:20am Abnormal glucose affecting Sep tem2024 10:17am Advanced maternal age (AMA) in March 21, 2025 10:17am Breech presentation March 21, 2025 10:17am Macrosomia affecting management of mothe r, antepartum March 21, 2025 10:17am Polyhydramnios affecting Septe mb 2024 10:17am Pre-existing severe obesity in mother af fecting March 21, 2025 10:17am March 21, 2025 10:17am Rh negative state in antepartum period S eptember 2024 10:17am Supervision of high-risk Septe [facility] 2024 10:17am Chief Complaint Admit Date 22wk [...] 2025 10:04am 37wk ob before csection *per [facility] r 2024 10:17am Reason for Visit Admit Date Advanced maternal age (AMA) in December 16, 2024 9:02am Pre-existing severe obesity in mother affecting December 16, 2024 9:02am December 16, 2024 9:02a m Rh negative state in antepartum period J [facility] 2024 9:02am Supervision of high-risk December 16, 2024 9:02am Advanced maternal age (AMA) in January 12, 2025 9:40am Pre-existing severe obesity in mother affecting January 12, 2025 9:40am January 12, 2025 9:40a m Rh negative state in antepartum period J [facility] 2024 9:40am Supervision of [...] Rh negative state in antepartum period A [facility] 2024 9:59am Supervision of high-risk Augus [...] Rh negative state in antepartum period A [facility] 2024 8:54am Supervision of high-risk Augus t 2024 8:54am Abnormal glucose affecting Aug us2024 10:00am Advanced maternal age (AMA) in March 09, 2025 10:00am Breech presentation March 09, 2025 10 :00am Macrosomia affecting management of mothe r, antepartum March 09, 2025 10:00am Polyhydramnios affecting Augus 2024 10:00am Pre-existing severe obesity in mother affecting March 09, 2025 10:00am March 09, 2025 10 :00am Rh negative state in antepartum period A [facility] 2024 10:00am Supervision of high-risk Augus t 2024 10:00am Breech presentation March 15, 2025 10:20am Macrosomia affecting management of mothe r, antepartum March 15, 2025 10:20am Polyhydramnios affecting Septe mb2024 10:20am March 15, 2025 10:20am Supervision of high-risk [facility] 2024 10:20am Abnormal glucose affecting [facility]2024 10:17am Advanced maternal age (AMA) in March 21, 2025 10:17am Breech presentation March 21, 2025 10:17am Macrosomia affecting management of mothe r, antepartum March 21, 2025 10:17am Polyhydramnios affecting [facility] 2024 10:17am Pre-existing severe obesity in mother affecting March 21, 2025 10:17am March 21, 2025 10:17am Rh negative state [facility] Supervision of high-risk [facility] 2024 10:17am Abnormal glucose affecting [facility] 2024 10:17am Advanced maternal age (AMA) in March 24, 2025 10:17am Breech presentation March 24, 2025 10:17am Macrosomia affecting management of mothe r, antepartum March 24, 2025 10:17am Polyhydramnios affecting [facility] 2024 10:17am Pre-existing severe obesity in mother affecting March 24, 2025 10:17am March 24, 2025 10:17am Rh negative state in antepartum [facility]24 10:17am Supervision of high-risk [facility] 2024 10:17am Chief Complaint Admit Date 22wk [...] 2025 10:04am 37wk ob before csection *[facility] 2024 10:17am PRIMARY C SECTION March 28, 2025 5:47am PRIMARY C SECTION March 28, 2025 7:16am PRIMARY C SECTION March 29, 2025 8:18am PRIMARY C SECTION March 30, 2025 7:58am Reason for Visit Admit Date Advanced maternal age (AMA) in December 16, 2024 9:02am Pre-existing severe obesity in mother affecting December 16, 2024 9:02am December 16, 2024 9:02a m Rh negative state in antepartum period [facility] 2024 9:02am Supervision of high-risk December 16, 2024 9:02am Advanced maternal age (AMA) in January 12, 2025 9:40am Pre-existing severe obesity in mother affecting January 12, 2025 9:40am January 12, 2025 9:40a m Rh negative state in antepartum period [facility] 2024 9:40am Supervision of high-risk January 12, 2025 9:40am Advanced maternal age (AMA) in January 24, 2025 8:22am Pre-existing severe obesity in mother affecting January 24, 2025 8:22am January 24, 2025 8:22 am Rh negative state in antepartum period [facility] 2024 8:22am Supervision of high-risk January 24, 2025 8:22am Abnormal glucose affecting Jan 9:17am Advanced maternal age (AMA) in February 07, 2025 9:17am Pre-existing severe obesity in mother affecting February 07, 2025 9:17am February 07, 2025 9:17 am Rh negative state in antepartum period [facility] 2024 9:17am Supervision of high-risk February 07, 2025 9:17am Abnormal glucose affecting Aug us2024 9:59am Advanced maternal age (AMA) in February 22, 2025 9:59am Pre-existing severe obesity in mother affecting February 22, 2025 9:59am February 22, 2025 9: 59am Rh negative state in antepartum period A [facility] 2024 9:59am Supervision of high-risk Augus 2024 9:59am Abnormal glucose affecting Aug ust [...] Rh negative state in antepartum period A [facility] 2024 8:54am Supervision of high-risk Augus 2024 8:54am Abnormal glucose affecting Aug us2024 10:00am Advanced maternal age (AMA) in March 09, 2025 10:00am Breech presentation March 09, 2025 10 :00am Macrosomia affecting management of mothe r, antepartum March 09, 2025 10:00am Polyhydramnios affecting Augus t 2024 10:00am Pre-existing severe obesity in mother affecting March 09, 2025 10:00am March 09, 2025 10 :00am Rh negative state in antepartum period A [facility] 2024 10:00am Supervision of high-risk Augus t 2024 10:00am Breech presentation March 15, 2025 10:20am Macrosomia affecting management of mothe r, antepartum March 15, 2025 10:20am Polyhydramnios affecting Septe mber 2024 10:20am March 15, 2025 10:20am Supervision of high-risk Septe mber 2024 10:20am Abnormal glucose affecting Sep tem2024 10:17am Advanced maternal age (AMA) in March 21, 2025 10:17am Breech presentation March 21, 2025 10:17am Macrosomia affecting management of mothe r, antepartum March 21, 2025 10:17am Polyhydramnios affecting [facility] 2024 10:17am Pre-existing severe obesity in mother affecting March 21, 2025 10:17am March 21, 2025 10:17am Rh negative state in antepartum period S [facility] 2024 10:17am Supervision of high-risk [facility] 2024 10:17am Abnormal glucose affecting [facility] 2024 10:17am Advanced maternal age (AMA) in March 24, 2025 10:17am Breech presentation March 24, 2025 10:17am Macrosomia affecting management of mothe r, antepartum March 24, 2025 10:17am Polyhydramnios affecting [facility] 2024 10:17am Pre-existing severe obesity in mother affecting March 24, 2025 10:17am March 24, 2025 10:17am Rh negative state in antepartum period S [facility] 2024 10:17am Supervision of high-risk [facility] 2024 10:17am Abnormal glucose affecting [facility] 2024 5:47am Advanced maternal age (AMA) in March 28, 2025 5:47am Breech presentation March 28, 2025 5:47am delivery delivered March 282024 5:47am Macrosomia affecting management of mothe r, antepartum March 28, 2025 5:47am Polyhydramnios affecting [facility] 2024 5:47am Pre-existing severe obesity in mother affecting March 28, 2025 5:47am March 28, 2025 5:47am Rh negative state in antepartum period S [facility] 2024 5:47am Supervision of high-risk [facility] 2024 5:47am Family History No Family History Records Found [...] Will No April 13 8:08pm Power of Seamless Tube Roller No April 13 021 8:08pm Advance Directive Response Recorded Date/ Time Do you have a Healthcare Power of Seamless Tube Roller? No March 28, 2025 6:18am Summary Purpose Additional Source Comments Goals (unrecognized [...] Member Role Status Dates Cristina Barros , DO Primary Care Provi radha, Attending Provider, [...] Inactive Member Role Status Dates Erick Rodriguez CARDIAC SPECIALIST, CARDIAC SPECIALIST-C Attending Provider Active Start: November 17, 2024 End: November 17, 2024 Team Status: Inactive Member Role Status Dates Erick Rodriguez CARDIAC SPECIALIST, CARDIAC SPECIALIST-C Attending Provider Active Start: November 17, 2024 End: November 17, 2024 rEick Rodriguez CARDIAC SPECIALIST, CARDIAC SPECIALIST-C Referring Provider Active Start: November 17, 2024 [...] Inactive Member Role/Relationship Status Dates Erick Rodriguez CARDIAC SPECIALIST, CARDIAC SPECIALIST-C Attending Provider Active Start: November 17, 2024 End: November 17, 2024 Team Status: Inactive Member Role/Relationship Status Dates Erick Rodriguez CARDIAC SPECIALIST, CARDIAC SPECIALIST-C Attending Provider Active Start: November 17, 2024 End: November 17, 2024 Erick Rodriguez CARDIAC SPECIALIST, CARDIAC SPECIALIST-C Referring Provider Active Start: November 17, 2024 End: November 17, 2024 Team Status: Inactive Member Role/Relationship Status Dates Dr. Fiordaliza Zhong MD Attending Provider Active Start: December 16, 2024 End: December 16, 2024 Team Status: Inactive Member Role/Relationship Status Dates Erick Rodriguez CARDIAC SPECIALIST, CARDIAC SPECIALIST-C Attending Provider Active Start: January 12, 2025 [...] Inactive Member Role/Relationship Status Dates Erick Rodriguez CARDIAC SPECIALIST, CARDIAC SPECIALIST-C Attending Provider Active Start: November 17, 2024 End: November 17, 2024 Team Status: Inactive Member Role/Relationship Status Dates Erick Rodriguez CARDIAC SPECIALIST, CARDIAC SPECIALIST-C Attending Provider Active Start: November 17, 2024 End: November 17, 2024 Erick Brooks CARDIAC SPECIALIST, CARDIAC SPECIALIST-C Referring Provider Active Start: November 17, 2024 End: November 17, 2024 Team Status: Inactive Member Role/Relationship Status Dates Dr. Fiordaliza Zhong MD Attending Provider Active Start: December 16, 2024 End: December 16, 2024 Team Status: Inactive Member Role/Relationship Status Dates Erick Coleharbor CARDIAC SPECIALIST, CARDIAC SPECIALIST-C Attending Provider Active Start: January 12, 2025 End: January 12, 2025 Team Status: Inactive Member Role/Relationship Status Dates Erick Brooks CARDIAC SPECIALIST, CARDIAC SPECIALIST-C Attending Provider Active Start: January 24, 2025 End: January 24, 2025 Team Status: Active Member Role/Relationship Status Dates Erick Rodriguez CARDIAC SPECIALIST, CARDIAC SPECIALIST-C Attending Provider Active Start: January 24, 2025 [...] Inactive Member Role/Relationship Status Dates Erick Rodriguez CARDIAC SPECIALIST, CARDIAC SPECIALIST-C Attending Provider Active Start: November 17, 2024 End: November 17, 2024 Team Status: Inactive Member Role/Relationship Status Dates Erick Coleharbor CARDIAC SPECIALIST, CARDIAC SPECIALIST-C Attending Provider Active Start: November 17, 2024 End: November 17, 2024 Erick Brooks CARDIAC SPECIALIST, CARDIAC SPECIALIST-C Referring Provider Active Start: November 17, 2024 End: November 17, 2024 Team Status: Inactive Member Role/Relationship Status Dates Dr. Fiordaliza Zhong MD Attending Provider Active Start: December 16, 2024 End: December 16, 2024 Team Status: Inactive Member Role/Relationship Status Dates Erick Rodriguez CARDIAC SPECIALIST, CARDIAC SPECIALIST-C Attending Provider Active Start: January 12, 2025 End: January 12, 2025 Team Status: Inactive Member Role/Relationship Status Dates Erick Brooks CARDIAC SPECIALIST, CARDIAC SPECIALIST-C Attending Provider Active Start: January 24, 2025 End: January 24, 2025 Team Status: Inactive Member Role/Relationship Status Dates Erick Arguetas CARDIAC SPECIALIST, CARDIAC SPECIALIST-C Attending Provider Active Start: January 24, 2025 End: January 24, 2025 Team Status: Active Member Role/Relationship Status Dates Erick Rodriguez CARDIAC SPECIALIST, CARDIAC SPECIALIST-C Attending Provider Active Start: January 25, 2025 Erick Rodriguez CARDIAC SPECIALIST, CARDIAC SPECIALIST-C Referring Provider Active Start: January 25, 2025 Dr. Delmar Luna MD Primary Care Provider Acti ve Start: January 25, 2025 Team Status: Inactive Member Role/Relationship Status Dates Erick Arguetas CARDIAC SPECIALIST, CARDIAC SPECIALIST-C Attending Provider Active Start: January 25, 2025 End: January 25, 2025 Erick Arguetas CARDIAC SPECIALIST, CARDIAC SPECIALIST-C Referring Provider Active Start: January 25, 2025 End: January 25, 2025 Dr. Delmar Luna MD Primary Care Provider Acti ve Start: January 25, 2025 End: January 25, 2025 Team Status: Inactive Member Role/Relationship Status Dates Erick Rodriguez CARDIAC SPECIALIST, CARDIAC SPECIALIST-C Attending Provider Active Start: January 25, 2025 End: January 25, 2025 Erick Rodriguez CARDIAC SPECIALIST, CARDIAC SPECIALIST-C Referring Provider Active Start: January 25, 2025 [...] Inactive Member Role/Relationship Status Dates Erick Brooks CARDIAC SPECIALIST, CARDIAC SPECIALIST-C Attending Provider Active Start: November 17, 2024 End: November 17, 2024 Team Status: Inactive Member Role/Relationship Status Dates Erick Brooks CARDIAC SPECIALIST, CARDIAC SPECIALIST-C Attending Provider Active Start: November 17, 2024 End: November 17, 2024 Erick Brooks CARDIAC SPECIALIST, CARDIAC SPECIALIST-C Referring Provider Active Start: November 17, 2024 End: November 17, 2024 Team Status: Inactive Member Role/Relationship Status Dates Dr. Fiordaliza Zhong MD Attending Provider Active Start: December 16, 2024 End: December 16, 2024 Team Status: Inactive Member Role/Relationship Status Dates Erick Coleharbor CARDIAC SPECIALIST, CARDIAC SPECIALIST-C Attending Provider Active Start: January 12, 2025 End: January 12, 2025 Team Status: Inactive Member Role/Relationship Status Dates Erick Brooks CARDIAC SPECIALIST, CARDIAC SPECIALIST-C Attending Provider Active Start: January 24, 2025 End: January 24, 2025 Team Status: Inactive Member Role/Relationship Status Dates Erick Coleharbor CARDIAC SPECIALIST, CARDIAC SPECIALIST-C Attending Provider Active Start: January 25, 2025 End: January 25, 2025 Erick Brooks CARDIAC SPECIALIST, CARDIAC SPECIALIST-C Referring Provider Active Start: January 25, 2025 [...] Active Member Role/Relationship Status Dates Dr. Delmar uLna MD Primary Care Provider Acti ve Start: [...] Inactive Member Role/Relationship Status Dates Erick Rodriguez CARDIAC SPECIALIST, CARDIAC SPECIALIST-C Attending Provider Active Start: January 12, 2025 End: January 12, 2025 Team Status: Inactive Member Role/Relationship Status Dates Erick Rodriguez CARDIAC SPECIALIST, CARDIAC SPECIALIST-C Attending Provider Active Start: January 24, 2025 End: January 24, 2025 Team Status: Inactive Member Role/Relationship Status Dates Erick Arguetas CARDIAC SPECIALIST, CARDIAC SPECIALIST-C Attending Provider Active Start: January 24, 2025 End: January 24, 2025 Team Status: Inactive Member Role/Relationship Status Dates Erick Arguetas CARDIAC SPECIALIST, CARDIAC SPECIALIST-C Attending Provider Active Start: January 25, 2025 End: January 25, 2025 Erick Rodriguez CARDIAC SPECIALIST, CARDIAC SPECIALIST-C Referring Provider Active Start: January 25, 2025 [...] Status: Inactive Member Role/Relationship Status Dates Dr. Delamr Luna MD Primary Care Provider Acti ve [...] Status Dates Dr. Delmar Luna MD Primary care physician Act macario Team Status: Inactive Member Role/Relationship Status Dates Dr. Fiordaliza Zhong MD Attending physician Active Start: December 16, 2024 End: December 16, 2024 Team Status: Inactive Member Role/Relationship Status Dates Erick Rodriguez CARDIAC SPECIALIST, CARDIAC SPECIALIST-C Attending physician Active Start: January 12, 2025 End: January 12, 2025 Team Status: Inactive Member Role/Relationship Status Dates Erick Coleharbor CARDIAC SPECIALIST, CARDIAC SPECIALIST-C Attending physician Active Start: January 24, 2025 End: January 24, 2025 Team Status: Inactive Member Role/Relationship Status Dates Erick Arguetas CARDIAC SPECIALIST, CARDIAC SPECIALIST-C Attending physician Active Start: January 24, 2025 End: January 24, 2025 Team Status: Inactive Member Role/Relationship Status Dates Erick Arguetas CARDIAC SPECIALIST, CARDIAC SPECIALIST-C Attending physician Active Start: January 25, 2025 End: January 25, 2025 Erick Rodriguez CARDIAC SPECIALIST, CARDIAC SPECIALIST-C Referring Provider Active Start: January 25, 2025 End: January 25, 2025 Dr. Delmar Luna MD Primary care physician Act macario Start: January 25, 2025 End: January 25, 2025 Team Status: Inactive Member Role/Relationship Status Dates Dr. Aye Dey DO Attending physician Acti ve Start: February 07, 2025 End: February 07, 2025 Dr. Delmar Luna MD Primary care physician Act macario Start: February 07, 2025 End: February 07, 2025 Dr. Delmar Luna MD Referring Provider Active Start: February 07, 2025 End: February 07, 2025 Team Status: Inactive Member Role/Relationship Status Dates Greg Rich CNM Attending physician Active Start: February 22, 2025 End: February 22, 2025 Dr. Delmar Luna MD Primary care physician Act macario Start: February 22, 2025 End: February 22, 2025 Dr. Delmar Luna MD Referring Provider Active Start: February 22, 2025 End: February 22, 2025 Team Status: Inactive Member Role/Relationship Status Dates Dr. Aye Dey DO Attending physician Acti ve Start: March 09, 2025 End: March 09, 2025 Dr. Delmar Luna MD Primary care physician Act macario Start: March 09, 2025 End: March 09, 2025 Dr. Delmar Luna MD Referring Provider Active Start: March 09, 2025 End: March 09, 2025 Team Status: Inactive Member Role/Relationship Status Dates Dr. Delmar Luna MD Primary care physician Act macario Start: March 09, 2025 End: March 09, 2025 Dr. Aye Dey DO Attending physician Acti ve Start: March 09, 2025 End: March 09, 2025 Dr. Aye Dey DO Referring Provider Activ e Start: March 09, 2025 End: March 09, 2025 Team Status: Active Member Role/Relationship Status Dates Dr. Delmar Luna MD Primary care physician Act macario Start: March 09, 2025 Dr. Aye Dey DO Attending physician Acti ve Start: March 09, 2025 Dr. Aye Dey DO Referring Provider Activ e Start: March 09, 2025 Dr. Aye Dey DO Nurse Practitioner Activ e Start: March 09, 2025 Team Status: Inactive Member Role/Relationship Status Dates Dr. Delmar Luna MD Primary care physician Act macario Start: March 15, 2025 End: March 15, 2025 Dr. Fiordaliza Zhong MD Attending physician Active Start: March 15, 2025 End: March 15, 2025 Dr. Fiordaliza Zhong MD Referring Provider Active Start: March 15, 2025 End: March 15, 2025 Team Status: Active Member Role/Relationship Status Dates Dr. Delmar Luna MD Primary care physician Act macario Start: March 15, 2025 Dr. Fiordaliza Zhong MD Attending physician Active Start: March 15, 2025 Dr. Fiordaliza Zhong MD Referring Provider Active Start: March 15, 2025 Dr. Fiordaliza Zhong MD Nurse Practitioner Active Start: March 15, 2025 Team Status: Inactive Member Role/Relationship Status Dates Dr. Fiordaliza Zhong MD Attending physician Active Start: March 21, 2025 End: March 21, 2025 Dr. Delmar Luna MD Primary care physician Act macario Start: March 21, 2025 End: March 21, 2025 Dr. Delmar Luna MD Referring Provider Active Start: March 21, 2025 End: March 21, 2025 Team Status: Active Member Role/Relationship Status Dates Dr. Delmar Luna MD Primary care physician Act macario Start: March 21, 2025 Dr. Fiordaliza Zhong MD Attending physician Active Start: March 21, 2025 Dr. Fiordaliza Zhong MD Referring Provider Active Start: March 21, 2025 Team Status: Inactive Member Role/Relationship Status Dates Dr. Delmar Luna MD Primary care physician Act macario Start: March 24, 2025 End: March 24, 2025 Dr. Fiordaliza Zhong MD Attending physician Active Start: March 24, 2025 End: March 24, 2025 Dr. Fiordaliza Zhong MD Referring Provider Active Start: March 24, 2025 End: March 24, 2025 Team Status: Active Member Role/Relationship Status Dates Dr. Delmar Luna MD Primary care physician Act macario Start: March 24, 2025 Dr. Fiordaliza Zhong MD Attending physician Active Start: March 24, 2025 Dr. Fiordaliza Zhong MD Referring Provider Active Start: March 24, 2025 Dr. Fiordaliza Zhong MD Nurse Practitioner Active Start: March 24, 2025 Team Status: Inactive Member Role/Relationship Status Dates Dr. Delmar Luna MD Primary care physician Act macario Start: March 24, 2025 End: March 24, 2025 Dr. Delmar Luna MD Referring Provider Active Start: March 24, 2025 End: March 24, 2025 Dr. Fiordaliza Zhong MD Attending physician Active Start: March 24, 2025 End: March 24, 2025 Team Status: Active Member Role/Relationship Status Dates Dr. Delmar Luna MD Primary care physician Act macario Start: March 27, 2025 Dr. Fiordaliza Zhong MD Admitting physician Active Start: March 27, 2025 Dr. Fiordaliza Zhong MD Attending physician Active Start: March 27, 2025 Dr. Fiordaliza Zhong MD Nurse Practitioner Active Start: March 27, 2025 Team Status: Inactive Member Role/Relationship Status Dates Dr. Delmar Luna MD Primary care physician Act macario Start: March 28, 2025 End: March 30, 2025 Dr. Fiordaliza Zhong MD Admitting physician Active Start: March 28, 2025 End: March 30, 2025 Dr. Fiordaliza Zhong MD Attending physician Active Start: March 28, 2025 End: March 30, 2025 Team Status: Active Member Role/Relationship Status Dates Dr. Delmar Luna MD Primary care physician Act macario Start: March 28, 2025 Dr. Fiordaliza Zhong MD Admitting physician Active Start: March 28, 2025 Dr. Fiordaliza Zhong MD Attending physician Active Start: March 28, 2025 Dr. Fiordaliza Zhong MD Nurse Practitioner Active Start: March 28, 2025 Team Status: Active Member Role/Relationship Status Dates Dr. Delmar Luna MD Primary care physician Act macario Start: March 29, 2025 Dr. Fiordaliza Zhong MD Admitting physician Active Start: March 29, 2025 Dr. Fiordaliza Zhong MD Nurse Practitioner Active Start: March 29, 2025 Greg Rich CNM Attending physician Active Start: March 29, 2025 Team Status: Active Member Role/Relationship Status Dates Dr. Delmar Luna MD Primary care physician Act macario Start: March 30, 2025 Dr. Fiordaliza Zhong MD Admitting physician Active Start: March 30, 2025 Dr. Fiordaliza Zhong MD Attending physician Active Start: March 30, 2025 Dr. Fiordaliza Zhong MD Nurse Practitioner Active Start: March 30, 2025 INFORMATION SOURCE (unrecogn ized section and content) DATE CREATED AUTHOR 03/22/2025 [facility] DATE CREATED AUTHOR AUTHOR'S ORGANIZ ATION 04/06/2025 [facility] FOR RECORDS PERTAINING TO PATIENTS WHO [...] BE BASED ON THE PRIMARY CLINICAL RECORDS. [facility]. provides no warranty or guarantee of the accuracy or completeness of information in this document.
[2025-04-07] MEDS: Piperacil/Tazobactam 3.375 GM in 0.9% Normal Saline (50mL MB+) 50 ML IV (21:38)
--- OUTSIDE RECORDS SUMMARY | 2025-04-07 21:45 | XMS RPT_ITS | CCD ---
Author Organization [facility] Care Team Providers Care Plasma Processor Name Role Phone Greg Rich CNM Attending Provider [phone] Greg Rich CNM Referring Provider [phone] Dr. Aye Dey DO Attending Provider Dr. Aye Dey DO Referring Provider Sidney PRODUCTION TRAINER-C, Erick Attending Provider [phone] Sidney PRODUCTION TRAINER-C, Erick Referring Provider [phone] Dr. Fiordaliza Zhong MD Attending Provider Dr. Delmar Luna MD Primary Care Provider Dr. Aye Dey DO Attending Provider Dr. Delmar Luna MD Referring Provider Dr. Aye Dey DO Attending Provider Greg Rich CNM Attending Provider [phone] Dr. Aye Dey DO Referring Provider Dr. Aye Dey DO Other Provider [phone] Dr. Fiordaliza Zhong MD Referring Provider [phone] Dr. Fiordaliza Zhong MD Other Provider [phone] Brooks PRODUCTION TRAINER-C, Erick Attending Provider Sidney PRODUCTION TRAINER-C, Erick Referring Provider REFERRED, SELF Referring Unavailable AYE RUVALCABA Attending Unavailable DELMAR LUNA Primary Care Unavailabl e RANNEY, CHRISTOPHER B Primary Care Unavailabl FIORDALIZA Christie Referring Unavailabl e LUCY ALVES Attending Unavailable [facility] Primary Care Unavailabl e FRANKY BADILLO Attending Unavailable REFERRED, SELF Referring Unavailable AYE RUVALCABA Attending Unavailable [facility] Primary Care Unavailabl e REFERRED, SELF Referring Unavailable GREG RICH Referring Unavailable RANCUBA, CHRISTOPHER B Primary Care Unavailabl e FRANKY BADILLO Attending Unavailable GREG RICH S Referring Unavailable FRANKY BADILLO Attending Unavailable [facility] Primary Care Unavailsammi e COSTA CERRATO Attending Unavailable NO PRIMARY CARE, Primary Care Unavailable ERICK RODRIGUEZ S Referring Unavailable GREG RICH Referring Unavailable COSTA CERRATO Attending Unavailable NO PRIMARY CARE, Primary Care Unavailable Farheen MEDINA, Dr. Mancera Attending Physician Brooks PRODUCTION TRAINER-CErick Attending Physician [phone] Cheryl MEDINA, Dr. Mendoza Primary Care Physicia n Sola Mcdowell DO, Dr. Griffiths Attending Physician Greg Rich CNM Attending Physician [phone] Dr. Aye Dey DO Nurse Practitioner Farheen MEDINA, Dr. Mancera Nurse Practitioner Farheen MEDINA, Dr. Mancera Admitting Physician Greg Rich Attending Unavailable Greg Rich Referring Unavailable Erick Rodriguez Attending Unavailable Erick Rodriguez Referring Unavailable Ranney, Christopher Referring Unavailable [facility] Unavailable Aye Dey Attending UnavailFiordaliza Gaxiola Attending Unavailable Fiordaliza Zhong Referring Unavailable [facility] Unavailable Fiordaliza Zhong Consulting Unavailable Ran[facility] Primary [facility] Unavailable Fiordaliza Zhong Attending Unavailable Fiordaliza Zhong Admitting Unavailable Ranney, Christopher Referring Unavailable Ranney, Christopher Primary Care Unavailable Eva Conroy Attending Unavailable Ranney, Christopher Primary Care Unavailable Ranney, Christopher Referring Unavailable Fiordaliza Zhong Attending Unavailable Erick Rodriguez Attending Unavailable BrooksErick Attending Unavailable Greg Rich Attending Unavailable DiegoonyFiordaliza Referring Unavailable MarcanthonyFiordaliza Consulting Unavailable [facility] Care Unavailable MarcanthonyFiordaliza Attending Unavailable MarcanthonyFiordaliza Admitting Unavailable MarcanthonyFiordaliza Consulting Unavailable [facility] Care Unavailable MarcanthonyFiordaliza Attending Unavailable [facility] [place] Referring Unavailable [facility] Care Unavailable MarcanthonyFiordaliza Attending Unavailable [facility] [place] Referring Unavailable [facility] Primary Care Unavailable BrooksErick Attending Unavailable [facility] Care Unavailable Vande Velde, Aye Referring Unavailabl e Vande Velde, Aye Consulting Unavailabl e Vande Velde, Aye Attending Unavailabl e Marcanthony, Fiordaliza Attending Unavailable MarcanthonyFiordaliza Referring Unavailable [facility] Care Unavailable DiegoonyFiordaliza Consulting Unavailable Erick Rodriguez Attending Unavailable MjanthonyFiordaliza Referring Unavailable [facility] Care Unavailable Fiordaliza Zhong Attending Unavailable Vande Velde, Aye Attending Unavailabl e Vande Velde, Aye Referring Unavailabl e MarcanthonyFiordaliza Referring Unavailable [facility] Care Unavailable Fiordaliza Zhong Attending Unavailable [facility] [place] Referring Unavailable [facility] Care Unavailable Fiordaliza Zhong Attending Unavailable Vande Velde, Aye Attending Unavailabl e BrooksErick pollack Attending Unavailable MarcanthonyFiordaliza Attending Unavailable Greg Rich Attending Unavailable [facility] Referring Unavailable [facility] Primary Care Unavailable Vande Velde, Aye Attending Unavailabl e [facility] Care Unavailable BrooksErick Referring Unavailable BrooksErick Attending Unavailable [facility] Referring Unavailable [facility] Care Unavailable Greg Rich Attending Unavailable Fiordaliza Zhong Admitting Unavailable [facility] Care Unavailable Fiordaliza Zhong Attending Unavailable [facility] Primary Care Unavailable Vande Velde, Aye [...] by mouth once daily Flash Glucose Scanning Mack (C-Notestyle Hardeep 2 Mack) misc (7 sources) Start: 03-07-2025 Flash Glucose Scanning Mack (Freestyle Hardeep 2 Mack) misc Active 0 .ROUTE .MEDSUPPLY 1 0 March 07, 2025 12:00am As directed isopropyl alcohol 0.7 ml/ml medicated pad (1 source) Start: 03-07-2025 Multivit 79-Dioj-Wrukjv 1-Dha (Pnv-Dha) 27 mg iron-1 mg -300 [...] 1:00am Start: 08-29-[address] [facility] once daily Multivit 24-Rtzr-Luqdyx 1-Dha (Pnv-Dha) 27 mg iron-1 mg -300 [...] unspecified trimester] 09-24-2024 Chronic Comment on above: [id number] nl 1 tm hga1c. recom mend weekly [...] PRR, , MEET 04/17, boy [facility] [place], [place] Other complications of (20 sources) Advanced [...] on above: GP IOL LT 04/14 B [facility] elects NIPT with gen radha, insufficient DNA, [...] Value Interpretation Reference Range Facility MR/BMS[facility] [address] [place] [address] OFFICE VISIT Date of Service: 03/31/25 MR#: [id number] Acct: [id number] Name: DEMETRIUS FERNANDES Rep #: [id number] : 1990 Provider: MARY JANE zuleta Age/Sex: 34/F Location[place] [facility] [place] Status: Signed Intake Vital Signs 03/28/25 05:40 03/31/25 15:17 Height 5 ft 9 in 5 ft 9 in Intake Visit Reasons: feeding assessment Allergies No Known Allergies Allergy (Verified 03/28/25 05:58) [facility] Medical History (Updated 03/31/25 @ 15:09 [...] 2 current occupational status: employed current occupation: [employer] current occupational exposures/hazards: No pets and animals: [...] 1-2 times per week duration: 30-45 minutes/day parul/quaker: None seatbelt use: always do you feel safe at home: Yes 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 Date Name GA/Weeks Outcome Route Bth Weight Infant Gen Labor Lgth Anesthesia Del Locatn Provider FOB 04/14/21 [place] 41 live - full term 8#2oz Male epidural [facility] GP [place] 03/28/25 Agust[place] 37 live - full term 8lbs 1oz Male spinal [facility] Delivery Date: 04/14/21 Last Updated by: Simi [...] ameda pump (more content not included)... Normal [facility] Bedside Glucoseon 03-29-2025 FINGERSTICK GLU 77 mg/dL Normal 74-106 [facility] Comment on above: Result Comment: JOAQUIM SEPULVEDA OF PATIENT CARE PER NURSING PROTOCOL Performed By: #### L 501.080 #### [facility] [address] [place], [address] CBC-Complete Blood Cnt No Di ffon 03-29-2025 Erythrocyte distribution width (RBC) [Ratio] 15.5 % High 11.6-14.6 [facility] Comment on above: Order Comment: Comme nts: Day #1 Reason for Laboratory Test Performed By: #### L 100.0500 #### [facility] [address] [place], [address] Hematocrit (Bld) [Volume fraction] 30.4 % Low 37-47 [facility] Comment on above: Order Comment: Comme nts: Day #1 Reason for Laboratory Test Performed By: #### L 100.0500 #### [facility] [address] [place], [address] Hemoglobin (Bld) [Mass/Vol] 9.9 g/dL Low 12.0-15.0 [facility] Comment on above: Order Comment: Comme nts: Day #1 Reason for Laboratory Test Performed By: #### L 100.0500 #### [facility] [address] [place], [address] MCH (RBC) [Entitic mass] 27.2 pg Normal 27.0-32.0 [facility] Comment on above: Order Comment: Comme nts: Day #1 Reason for Laboratory Test Performed By: #### L 100.0500 #### [facility] [address] [place], [address] MCHC (RBC) [Mass/Vol] 32.6 g/dL Normal 32-36 [facility] Comment on above: Order Comment: Comme nts: Day #1 Reason for Laboratory Test Performed By: #### L 100.0500 #### [facility] [address] [place], [address] MCV (RBC) [Entitic vol] 83.5 fL Normal 81-99 [facility] Comment on above: Order Comment: Comme nts: Day #1 Reason for Laboratory Test Performed By: #### L 100.0500 #### [facility] [address] [place], [address] Platelet mean volume (Bld) [Entitic vol] 10.6 fL Normal 6.2-12.0 [facility] Comment on above: Order Comment: Comme nts: Day #1 Reason for Laboratory Test Performed By: #### L 100.0500 #### [facility] [address] [place], [address] Platelets (Bld) [#/Vol] 211 10*3/uL Normal 150-450 [facility] Comment on above: Order Comment: Comme nts: Day #1 Reason for Laboratory Test Performed By: #### L 100.0500 #### [facility] [address] [place], [address] RBC (Bld) [#/Vol] 3.64 10*6/uL Low 4.2-5.4 [facility] Comment on above: Order Comment: Comme nts: Day #1 Reason for Laboratory Test Performed By: #### L 100.0500 #### [facility] [address] [place], [address] RDW SD 47.1 fl High 35.1-43.9 [facility] Comment on above: Order Comment: Comme nts: Day #1 Reason for Laboratory Test Performed By: #### L 100.0500 #### [facility] [address] [place], [address] WBC (Bld) [#/Vol] 12.2 10*3/uL High 4.4-11.0 [facility] Comment on above: Order Comment: Comme nts: Day #1 Reason for Laboratory Test Performed By: #### L 100.0500 #### [facility] [address] [place], [address] Erythrocyte distribution wid th ratioOrdered By: Fiordaliza Zhong on 03-29-2025 Erythrocyte distribution width (RBC) [Ratio] 15.5 % High 11.6-14.6 [facility] Erythrocyte distribution wid th standard deviationOrdered By: Fiordaliza Zhong on 03-29-2025 Erythrocyte distribution width (RBC) [Ratio] 47.1 fl High 35.1-43.9 [facility] Glucose measurement at bedsi deOrdered By: Fiordaliza Zhong on 03-29-2025 Glucose [Mass/Vol] 77 mg/dL 74-106 [facility] Comment on above: MANAGEMENT OF PATIEN T CARE PER NURSING PROTOCOL Hematocrit Auto (Bld) [Volum e fraction]Ordered By: Fiordaliza Zhong on 03-29-2025 Hematocrit (Bld) [Volume fraction] 30.4 % Low 37-47 [facility] Hemoglobin measurementOrdere d By: Fiordaliza Zhong on 03-29-2025 Hemoglobin (Bld) [Mass/Vol] 9.9 g/dL Low 12.0-15.0 [facility] MCV (mean corpuscular volume ) determinationOrdered By: Fiordaliza Zhong on 03-29-2025 MCV (RBC) [Entitic vol] 83.5 fL 81-99 [facility] Mean corpuscular hemoglobin (MCH) determinationOrdered By: Fiordaliza Zhong on 03-29-2025 MCH (RBC) [Entitic mass] 27.2 pg 27.0-32.0 [facility] Mean corpuscular hemoglobin concentration (MCHC) determinationOrdered By: Fiordaliza Zhong on 03-29-2025 MCHC (RBC) [Mass/Vol] 32.6 g/dL 32-36 [facility] Mean platelet volume determi nationOrdered By: Fiordaliza Zhong on 03-29-2025 Platelet mean volume (Bld) [Entitic vol] 10.6 fL 6.2-12.0 [facility] Platelet countOrdered By: Aga Zhong on 03-29-2025 Platelets (Bld) [#/Vol] 211 10*3/uL 150-450 [facility] RBC Auto (Bld) [#/Vol]Ordere d By: Fiordaliza Zhong on 03-29-2025 RBC (Bld) [#/Vol] 3.64 10*6/uL Low 4.2-5.4 [facility] White blood cell (WBC) count Ordered By: Fiordaliza Zhong on 03-29-2025 WBC (Bld) [#/Vol] 12.2 10*3/uL High 4.4-11.0 [facility] Absolute lymphocyte countOrd ered By: Fiordaliza Zhong on 03-28-2025 Lymphocytes Auto (Unsp spec) [#/Vol] 1.92 10*3/uL 0.83-4.51 [facility] Absolute neutrophil countOrd ered By: Fiordaliza Zhong on 03-28-2025 Neutrophils (Bld) [#/Vol] 8.7 10*3/uL High 2.0-7.7 [facility] Automated lymphocyte count a s percentage of total leukocytesOrdered By: Fiordaliza Zhong on 03-28-2025 Lymphocytes/100 WBC Auto (Unsp spec) 16.3 % Low 19-41 [facility] BRho(D) IGon 03-28-2025 Rho(D) IG Normal [facility] Comment on above: Result Comment: [id number] Rho(D) IG PRSMD TRFSD 03/28/25 1721 Performed By: #### L 509.8002 #### [facility] [address] [place], [place], [address] Basophil percentageOrdered B y: Fiordaliza Zhong on 03-28-2025 Basophils/100 WBC (Bld) 0.3 % 0-1 [facility] Bedside Glucoseon 03-28-2025 FINGERSTICK GLU 175 mg/dL High 74-106 [facility] Comment on above: Result Comment: JOAQUIM SEPULVEDA OF PATIENT CARE PER NURSING PROTOCOL Performed By: #### L 501.080 #### [facility] [address] [place], [place], [address] CBC W/Diff, Automatedon 03-14 Absolute Lymph 1.92 X10 3/uL Normal 0.83-4.51 [facility] Comment on above: Performed By: #### L 100.0500 #### [facility] [address] [place], [address] Absolute Neut 8.7 X10 3/uL High 2.0-7.7 [facility] Comment on above: Performed By: #### L 100.0500 #### [facility] [address] [place], [address] Basophils/100 WBC (Bld) 0.3 % Normal 0-1 [facility] Comment on above: Performed By: #### L 100.0500 #### [facility] [address] [place], [address] Eosinophils/100 WBC (Bld) 1.6 % Normal 0-5 [facility] Comment on above: Performed By: #### L 100.0500 #### [facility] [address] [place], [address] Erythrocyte distribution width (RBC) [Ratio] 15.5 % High 11.6-14.6 [facility] Comment on above: Performed By: #### L 100.0500 #### [facility] [address] [place], [address] Hematocrit (Bld) [Volume fraction] 32.4 % Low 37-47 [facility] Comment on above: Performed By: #### L 100.0500 #### [facility] [address] [place], [address] Hemoglobin (Bld) [Mass/Vol] 10.7 g/dL Low 12.0-15.0 [facility] Comment on above: Performed By: #### L 100.0500 #### [facility] [address] [place], [address] IG% 0.400 Normal 0.0-0.9 [facility] Comment on above: Result Comment: IG% - Immature Granulocytes (promyelocytes, myelocytes and metamyelocytes) > 1% indicates that a LEFT SHIFT is Present. Performed By: #### L 100.0500 #### [facility] [address] [place], [address] Lymphocytes/100 WBC (Bld) 16.3 % Low 19-41 [facility] Comment on above: Performed By: #### L 100.0500 #### [facility] [address] [place], [address] MCH (RBC) [Entitic mass] 27.5 pg Normal 27.0-32.0 [facility] Comment on above: Performed By: #### L 100.0500 #### [facility] [address] [place], [address] MCHC (RBC) [Mass/Vol] 33.0 g/dL Normal 32-36 [facility] Comment on above: Performed By: #### L 100.0500 #### [facility] [address] [place], [address] MCV (RBC) [Entitic vol] 83.3 fL Normal 81-99 [facility] Comment on above: Performed By: #### L 100.0500 #### [facility] [address] [place], [address] Monocytes/100 WBC (Bld) 7.5 % Normal 0-10 [facility] Comment on above: Performed By: #### L 100.0500 #### [facility] [address] [place], [address] Neutrophils/100 WBC (Bld) 73.9 % High 47-70 [facility] Comment on above: Performed By: #### L 100.0500 #### [facility] [address] [place], [address] Nucleated RBC (Bld) [#/Vol] 0 10*3/uL Normal 0-5 [facility] Comment on above: Performed By: #### L 100.0500 #### [facility] [address] [place], [address] Platelet mean volume (Bld) [Entitic vol] 10.8 fL Normal 6.2-12.0 [facility] Comment on above: Performed By: #### L 100.0500 #### [facility] [address] [place], [address] Platelets (Bld) [#/Vol] 247 10*3/uL Normal 150-450 [facility] Comment on above: Performed By: #### L 100.0500 #### [facility] [address] [place], [address] RBC (Bld) [#/Vol] 3.89 10*6/uL Low 4.2-5.4 [facility] Comment on above: Performed By: #### L 100.0500 #### [facility] [address] [place], [address] RDW SD 46.6 fl High 35.1-43.9 [facility] Comment on above: Performed By: #### L 100.0500 #### [facility] [address] [place], [address] WBC (Bld) [#/Vol] 11.8 10*3/uL High 4.4-11.0 [facility] Comment on above: Performed By: #### L 100.0500 #### [facility] [address] [place], [address] Discharge Instructionon 03-14 Discharge Instruction [facility] Medical Records Department [address] [place] [address] Instructions for Home/Discharge Instructions 03/28/25 0719 MR#: [id number] Acct: [id number] Name: DEMETRIUS FERNANDES Rep #: [id number] : 1990 34 From: Fiordaliza Zhong MD [...] Up With: Fiordaliza Zhong MD When: Call [phone] to make an appointment for an incision [...] mg PO DAILY (DME) FreeStyle Hardeep 2 Mack Misc See Rx Instructions .ROUTE .MEDSUPPLY Qty: [...] CC: Dr. Delmar Luna MD Signed Normal [facility] Eosinophil percentageOrdered By: Fiordaliza Zhong on 03-28-2025 Eosinophils/100 WBC (Bld) 1.6 % 0-5 [facility] Immature granulocytes/100 WB C Auto (Bld)Ordered By: Fiordaliza Zhong on 03-28-2025 Immature granulocytes/100 WBC (Bld) 0.400 % 0.0-0.9 [facility] Comment on above: IG% - Immature Granu locytes (promyelocytes, myelocytes and metamyelocytes) > 1% indicates that a LEFT SHIFT is Present. Monocyte percentageOrdered B y: Fiordaliza Zhong on 03-28-2025 Monocytes/100 WBC (Bld) 7.5 % 0-10 [facility] Neutrophil percentageOrdered By: Fiordaliza Zhong on 03-28-2025 Neutrophils/100 WBC (Bld) 73.9 % High 47-70 [facility] Nucleated red blood cell per centageOrdered By: Fiordaliza Zhong on 03-28-2025 Nucleated RBC/100 WBC (Bld) [Ratio] 0 % 0-5 [facility] Operative Reporton 5 Operative Report [facility] Medical Records Department [address] [place] [address] Operative Report 03/28/25 0716 MR#: [id number] Acct: [id number] Name: DEMETRIUS FERNANDES Rep #: [id number] : 1990 34 From: Fiordaliza Zhong MD PCP: Dr. Delmar Luna MD Status:ADM IN Location: [id number] Assessment Plan (1) Pre-existing severe obesity in [...] Description: 3 Vessels Delayed Cord Clamping: Yes Press Operator Printing respiratory care instructor: Yes Knotter Hand: Catracho Davison Tasks completed by assistant banquet manager: Opening closing, Retracting and Other (assisting in delivery of the infant) Additional medical assistant supervisor?: No Complications Complications: No Admit VTE Documentation VTE Present on Admission: No VTE Mechan Device Prophylaxis: SCD's Procedures Urinary/Genital 52xxx-59xxx: 54598 Delivery [facility] 03/30/25 0800 Co (more content not included)... Normal [facility] Rh Negative Mom Workupon ABO and Rh group Nom (Bld) Blood group O Rh(D) negative Normal [facility] Comment on above: Order Comment: Comme nts: Age > 13 [id number] Performed By: #### L 509.8002 #### [facility] [place], [address] ABO and Rh group Nom (Bld) Blood group A Rh(D) positive Normal [facility] Comment on above: Order Comment: Comme nts: Age > 13 [id number] Performed By: #### L 509.8002 #### [facility] [address] [place], [address] DIRECT ANTIGLOB Negative Normal NEGATIVE [facility] Comment on above: Order Comment: Comme nts: Age > 13 [id number] Performed By: #### L 509.8002 #### [facility] [address] [place], [address] SCREEN Negative Normal NEGATIVE [facility] Comment on above: Order Comment: Comme nts: Age > 13 [id number] Performed By: #### L 509.8002 #### [facility] [address] [place], [address] MOM'S ABS Negative Normal [facility] Comment on above: Order Comment: Comme nts: Age > 13 [id number] Performed By: #### L 509.8002 #### [facility] [address] [place], [address] Syphilis Antibodieson 2024 Syphilis Abs Non-Reactive Normal Nonreactive [facility] Comment on above: Performed By: #### L 509.8002 #### [facility] [address] [place], [address] Type AND Screenon 03-28-2025 Ab SCREEN GEL Negative Normal [facility] Comment on above: Order Comment: Comme nts: Day #1 Reason for Laboratory Test Performed By: #### L 100.0500 #### [facility] [address] [place], [address] OB Triage Progress Noteon OB Triage Progress Note [facility] Medical Records Department [address] [place] [address] OB Triage Progress Note 03/24/25 1004 MR#: [id number] Acct: [id number] Name: DEMETRIUS FERNANDES Rep #: [id number] : 1990 34 From: Fiordaliza Zhong MD PCP: Dr. Delmar Luna MD Status:REG CLI Y DOS: Location: [place] [id number] Progress Notes Date of Service: 03/24/25 Progress Note: Patient presents for triage evaluation secondary to polyhydramnios FHT: 135 Moderate variability reactive no decelerations category I tracing [place]: no regular Contractions Assessment and plan: 36 weeks severe polyhydramnios Reactive NST, reassuring maternal and status patient discharged to home to follow-up as scheduled. See problem list details for additional plan information. Charges/Coding Procedures Urinary/Genital 52xxx-59xxx: 33619-80 non-stress test Interp 03/24/25 1005 Date Fiordaliza Zhong MD Cosigner Signature (if applicable): Date CC: Dr. Delmar Luna MD; Dr. Fiordaliza Zhong MD Signed Normal [facility] [employer] Agent Office Visit Reporton 03-24-2025 [employer] Agent Office Visit Report [facility] [address], [address] [place] [address] OFFICE VISIT Date of Service: 03/24/25 MR#: [id number] Acct: [id number] Name: DEMETRIUS FERNANDES Rep #: [id number] : 1990 Provider: Dr. Fiordaliza leong MD Age/Sex: 34/F Location: 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 Date Name GA/Weeks Outcome Route Bth Weight Gen Labor Lgth Anesthesia Del Locatn Provider FOB 04/14/21 Tim[place] 41 live - full term 8#2oz Male epidural [facility] GP [place] Delivery Date: 04/14/21 Last [...] Visit Note (more content not included)... Normal [facility] Rule out Beta Strep (Grp. B) on 03-23-2025 PRICE Group B Beta Streptococcus is not isolated. Normal [facility] Comment on above: Performed By: #### L 509.8002 #### [facility] [address] [place], [place], [address] Laboratory - Chemistry and C hemistry - challengeOrdered By: Fiordaliza Zhong on 03-21-2025 Glucose Ql (U) Negative [facility] Laboratory - UrinalysisOrder ed By: Fiordaliza Zhong on 03-21-2025 Protein Ql (U) Negative [facility] [employer] Office Visit Reporton 03-21-2025 [employer] Office Visit Report [facility] [address], [address] [place] [address] OFFICE VISIT Date of Service: 03/21/25 MR#: [id number] Acct: [id number] Name: DEMETRIUS FERNANDES Rep #: [id number] : 1990 Provider: Dr. Fiordaliza leong MD Age/Sex: 34/F Location: 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 Date Name GA/Weeks Outcome Route Bth Weight Gen Labor Lgth Anesthesia Del Locatn Provider FOB 04/14/21 Timmy 41 live - full term 8#2oz Male epidural [facility] GP [place] Delivery Date: 04/14/21 Last [...] Visit Note (more content not included)... Normal [facility] Progress Noteon 03-21-2025 Centrifugal Supervisor Authentication Interface Message Text Comanage Polyhydramnios- concern [...] of 03/21/2025. [2] No Known Allergies Normal [facility] Screening beta-hemolytic Str eptococcus cultureOrdered By: Fiordaliza Zhong on 03-21-2025 Beta-hemolytic Streptococcus culture Group B Beta Streptococcus is not isolated. [facility] Progress Noteon 03-16-2025 Centrifugal Supervisor Authentication Interface Message Text Comanage Polyhydramnios- concern [...] of 03/16/2025. [2] No Known Allergies Normal [facility] OB Triage Progress Noteon OB Triage Progress Note [facility] Medical Records Department [address] [place] [address] OB Triage Progress Note 03/15/25 1110 MR#: [id number] Acct: [id number] Name: DEMETRIUS FERNANDES Rep #: [id number] : 1990 34 From: Fiordaliza Zhong MD PCP: Dr. Delmar Luna MD Status:REG CLI Y DOS: Location: [place] [address] Progress Notes Date of Service: 03/15/25 Progress Note: Patient presents for triage evaluation secondary to polyhydramnios FHT: 130-135 Moderate variability reactive no decelerations category I tracing [place]: no regular Contractions Assessment and plan: polyhydramnios 35 weeks Reactive NST, reassuring maternal and status patient discharged to home to follow-up as scheudled. See problem list details for additional plan information. Charges/Coding Procedures Urinary/Genital 52xxx-59xxx: [id number] non-stress test Interp Assessment Plan (1) Polyhydramnios [...] MD; Dr. Fiordaliza Zhong MD Signed Normal [facility] Progress Noteon 03-11-2025 Centrifugal Supervisor Authentication Interface Message Text [facility] Ultrasound Consult Note Today we discussed the [...] 04/14/21 41w0d 3.685 kg M Vag-Spont Comments: [facility] NIPT not able to be calculated [...] decrease in amniotic fluid. All questions answered. [facility] CS#46 recommendations. 1. Serial growth ultrasounds [...] -30 minutes chart review and documentation Normal [facility] Laboratory - Chemistry and C hemistry - challengeOrdered By: Aye Mcdowell on 03-09-2025 Glucose Ql (U) Negative [facility] Laboratory - UrinalysisOrder ed By: Aye Mcdowell on 03-09-2025 Protein Ql (U) Negative [facility] OB Triage Physician Noteon 0 03-09-2025 OB Triage Physician Note [facility] Medical Records Department [address] [place] [address] OB Triage Physician Note 03/09/252037 MR#: [id number] Acct: [id number] Name: DEMETRIUS FERNANDES Rep #: [id number] : 1990 34 From: Aye Dey DO PCP: Dr. 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 Date Name GA/Weeks Outcome Route Bth Weight Gen Labor Lgth Anesthesia Del Locatn Provider FOB 04/14/21 [place] 41 live - full term 8#2oz Male epidural [facility] GP [place] Delivery Date: 04/14/21 Last [...] -???-???-???-???-???-? ??- (more content not included)... Normal [facility] [employer] Office Visit Reporton 03-09-2025 [employer] Agent Office Visit Report [facility] [address], [address] [place] [address] OFFICE VISIT Date of Service: 03/09/25 MR#: [id number] Acct: [id number] Name: DEMETRIUS FERNANDES Rep #: [id number] : 1990 Provider: Dr. Aye Morel DO Age/Sex: 34/F Location: [facility] [place] Status: Signed Intake Vital Signs 01/12/25 09:43 02/22/25 10:03 03/09/25 08:54 03/09/25 08:55 Height 5 ft 9 in 5 ft 9 in 5 ft 9 in 5 ft 9 in Weight: 339 lb 6 oz BMI 50.1 BP 136/85 H Intake Visit Reasons: 34 wk ob Sisal Operator Required: No Is patient in pain?: No [...] ea 03/07/25 03/09/25 Rx (FreeStyle Hardeep 2 Mack) lancets #200 ea 03/07/25 03/09/25 Rx Last [...] occupational status: employed and unemployed current occupation: [employer] current occupational exposures/hazards: No [...] 1-2 times per week duration: 30-45 minutes/day parul/quaker: None seatbelt use: always do you feel safe at home: Yes 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 Date Name GA/Weeks Outcome Route Bth Weight Gen Labor Lgth Anesthesia Del [place] Provider FOB 04/14/21 Timmy 41 live - full term 8#2oz Male epidural [facility] GP [place] Delivery Date: 04/14/21 Last [...] -???- Gluc (more content not included)... Normal [facility] Laboratory - Chemistry and C hemistry - challengeOrdered By: Greg Rich on 02-22-2025 Glucose Ql (U) Negative [facility] Laboratory - UrinalysisOrder ed By: Greg Rich on 02-22-2025 Protein Ql (U) Negative [facility] [employer] Office Visit Reporton 02-22-2025 [employer] Agent Office Visit Report [facility] [address], [address] [place] [address] OFFICE VISIT Date of Service: 02/22/25 MR#: [id number] Acct: [id number] Name: DEMETRIUS FERNANDES Rep #: [id number] : 1990 Provider: ZACHARY Way ams Age/Sex: 34/F Location: 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 Date Name GA/Weeks Outcome Route Bth Weight Gen Labor Lgth Anesthesia Del Locatn Provider FOB 04/14/21 Tim[place] 41 live - full term 8#2oz Male epidural [facility] GP [place] Delivery Date: 04/14/21 Last [...] cons with (more content not included)... Normal [facility] Laboratory - Chemistry and C hemistry - challengeOrdered By: Aye Mcdowell on 02-07-2025 Glucose Ql (U) Negative [facility] Laboratory - UrinalysisOrder ed By: Aye Mcdowell on 02-07-2025 Protein Ql (U) Negative [facility] [employer] Office Visit Reporton 02-07-2025 [employer] Agent Office Visit Report [facility] [address], [address] [place] [address] OFFICE VISIT Date of Service: 02/07/25 MR#: [id number] Acct: [id number] Name: DEMETRIUS FERNANDES Rep #: [id number] : 1990 Provider: Dr. Aye Morel DO Age/Sex: 34/F Location: 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 Date Name GA/Weeks Outcome Route Bth Weight Infant Gen Labor Lgth Anesthesia Del [facility] Provider FOB 04/14/21 Tim[place] 41 live - full term 8#2oz Male epidural [facility] GP [place] Delivery Date: 04/14/21 Last [...] -???- K (more content not included)... Normal [facility] Gestational GTT 3HR 100gon 0 01-25-2025 GEST GTT 100gm Normal [facility] Comment on above: Order Comment: Y [...] 1025 Performed By: #### L 500.4710 #### [facility] [address] [place], [place], [id number] Quantitative serum or plasma 3 hour gestational glucose tolerance panelOrdered By: Erick Rodriguez on 01-25-2025 Glucose tolerance 3 hours gestational panel See comment [facility] Comment on above: FASTING 91 Col: [...] Auto (Unsp spec) [#/Vol] 2.28 10*3/uL 0.83-4.51 [facility] Absolute neutrophil countOrd ered By: Erick Smithtings on 01-24-2025 Neutrophils (Bld) [#/Vol] 10.3 10*3/uL High 2.0-7.7 [facility] Automated lymphocyte count a s percentage of total leukocytesOrdered By: Erick Sidney on 01-24-2025 Lymphocytes/100 WBC Auto (Unsp spec) 16.6 % Low 19-41 [facility] Basophil percentageOrdered B y: Erick Sidney on 01-24-2025 Basophils/100 WBC (Bld) 0.3 % 0-1 [facility] CBC W/Diff, Automatedon 01-11 Absolute Lymph 2.28 X10 3/uL Normal 0.83-4.51 [facility] Comment on above: Performed By: #### L 509.8002 #### [facility] [address] [place], [place], [id number] Absolute Neut 10.3 X10 3/uL High 2.0-7.7 [facility] Comment on above: Performed By: #### L 509.8002 #### [facility] [address] [place], [place], [id number] Basophils/100 WBC (Bld) 0.3 % Normal 0-1 [facility] Comment on above: Performed By: #### L 509.8002 #### [facility] [address] [place], [address] Eosinophils/100 WBC (Bld) 0.9 % Normal 0-5 [facility] Comment on above: Performed By: #### L 509.8002 #### [facility] [address] [place], [address] Erythrocyte distribution width (RBC) [Ratio] 15.7 % High 11.6-14.6 [facility] Comment on above: Performed By: #### L 509.8002 #### [facility] [address] [place], [address] Hematocrit (Bld) [Volume fraction] 33.4 % Low 37-47 [facility] Comment on above: Performed By: #### L 509.8002 #### [facility] [address] [place], [address] Hemoglobin (Bld) [Mass/Vol] 10.6 g/dL Low 12.0-15.0 [facility] Comment on above: Performed By: #### L 509.8002 #### [facility] [address] [place], [address] IG% 0.700 Normal 0.0-0.9 [facility] Comment on above: Result Comment: IG% - Immature Granulocytes (promyelocytes, myelocytes and metamyelocytes) > 1% indicates that a LEFT SHIFT is Present. Performed By: #### L 509.8002 #### [facility] [address] [place], [address] Lymphocytes/100 WBC (Bld) 16.6 % Low 19-41 [facility] Comment on above: Performed By: #### L 509.8002 #### [facility] [address] [place], [address] MCH (RBC) [Entitic mass] 27.1 pg Normal 27.0-32.0 [facility] Comment on above: Performed By: #### L 509.8002 #### [facility] [address] [place], [address] MCHC (RBC) [Mass/Vol] 31.7 g/dL Low 32-36 [facility] Comment on above: Performed By: #### L 509.8002 #### [facility] [address] [place], [address] MCV (RBC) [Entitic vol] 85.4 fL Normal 81-99 [facility] Comment on above: Performed By: #### L 509.8002 #### [facility] [address] [place], [address] Monocytes/100 WBC (Bld) 6.5 % Normal 0-10 [facility] Comment on above: Performed By: #### L 509.8002 #### [facility] [address] [place], [address] Neutrophils/100 WBC (Bld) 75.0 % High 47-70 [facility] Comment on above: Performed By: #### L 509.8002 #### [facility] [address] [place], [address] Nucleated RBC (Bld) [#/Vol] 0 10*3/uL Normal 0-5 [facility] Comment on above: Performed By: #### L 509.8002 #### [facility] [address] [place], [address] Platelet mean volume (Bld) [Entitic vol] 10.7 fL Normal 6.2-12.0 [facility] Comment on above: Performed By: #### L 509.8002 #### [facility] [address] [place], [address] Platelets (Bld) [#/Vol] 262 10*3/uL Normal 150-450 [facility] Comment on above: Performed By: #### L 509.8002 #### [facility] [address] [place], [address] RBC (Bld) [#/Vol] 3.91 10*6/uL Low 4.2-5.4 [facility] Comment on above: Performed By: #### L 509.8002 #### [facility] [address] [place], [address] RDW SD 48.2 fl High 35.1-43.9 [facility] Comment on above: Performed By: #### L 509.8002 #### [facility] [address] [place], [address] WBC (Bld) [#/Vol] 13.8 10*3/uL High 4.4-11.0 [facility] Comment on above: Performed By: #### L 509.8002 #### [facility] [address] [place], [address] Eosinophil percentageOrdered By: Erick Rodriguez on 01-24-2025 Eosinophils/100 WBC (Bld) 0.9 % 0-5 [facility] Erythrocyte distribution wid th ratioOrdered By: Erick Rodriguez on 01-24-2025 Erythrocyte distribution width (RBC) [Ratio] 15.7 % High 11.6-14.6 [facility] Erythrocyte distribution wid th standard deviationOrdered By: Erick Rodriguez on 01-24-2025 Erythrocyte distribution width (RBC) [Ratio] 48.2 fl High 35.1-43.9 [facility] Glucose Challenge Gest 1H 50 ender 01-24-2025 GLU GEST 50g 1H 150 mg/dL High 70-140 [facility] Comment on above: Performed By: #### L 509.8002 #### [facility] [address] [place], [address] Glucose measurement at 2 lauro rs post-dose gestational glucose tolerance testOrdered By: Erick Rodriguez on 01-24-2025 Glucose [Mass/Vol] 150 mg/dL High 70-140 [facility] HIVon 01-24-2025 HIV Non-Reactive Normal Nonreactive [facility] Comment on above: Result Comment: Non- Reactive Reactive Repeatedly reactive samples must be confirmed according to CDC recommended confirmatory algorithms. The subresults for either HIVAG or AHIV can be used as an aid in the selection of the confirmation algorithm for reactive samples. Send out specimens with Reactive results to [facility] for confirmation. Order the HIV antibody detection and differentiation: lc#[id number] Performed By: #### L 509.8002 #### [facility] [address] [place], [place], [id number] Hematocrit Auto (Bld) [Volum e fraction]Ordered By: Erick Rodriguez on 01-24-2025 Hematocrit (Bld) [Volume fraction] 33.4 % Low 37-47 [facility] Hemoglobin measurementOrdere d By: Erick Rodriguez on 01-24-2025 Hemoglobin (Bld) [Mass/Vol] 10.6 g/dL Low 12.0-15.0 [facility] Immature granulocytes/100 WB C Auto (Bld)Ordered By: Erick Rodriguez on 01-24-2025 Immature granulocytes/100 WBC (Bld) 0.700 % 0.0-0.9 [facility] Comment on above: IG% - Immature Granu locytes (promyelocytes, myelocytes and metamyelocytes) > 1% indicates that a LEFT SHIFT is Present. Laboratory - Chemistry and C hemistry - challengeOrdered By: Erick Rodriguez on 01-24-2025 Glucose Ql (U) Negative [facility] - UrinalysisOrder ed By: Erick Rodriguez on 01-24-2025 Protein Ql (U) Negative [facility] MCV (mean corpuscular volume ) determinationOrdered By: Erick Rodriguez on 01-24-2025 MCV (RBC) [Entitic vol] 85.4 fL 81-99 [facility] Mean corpuscular hemoglobin (MCH) determinationOrdered By: Erick Rodriguez on 01-24-2025 MCH (RBC) [Entitic mass] 27.1 pg 27.0-32.0 [facility] Mean corpuscular hemoglobin concentration (MCHC) determinationOrdered By: Erick Rodriguez on 01-24-2025 MCHC (RBC) [Mass/Vol] 31.7 g/dL Low 32-36 [facility] Mean platelet volume determi nationOrdered By: Erick Rodriguez on 01-24-2025 Platelet mean volume (Bld) [Entitic vol] 10.7 fL 6.2-12.0 [facility] Monocyte percentageOrdered B y: Erick Rodriguez on 01-24-2025 Monocytes/100 WBC (Bld) 6.5 % 0-10 [facility] Neutrophil percentageOrdered By: Erick Rodriguez on 01-24-2025 Neutrophils/100 WBC (Bld) 75.0 % High 47-70 [facility] No Panel InformationOrdered By: Erick Rodriguez on 01-24-2025 HIV (1&2) Antibody Non-Reactive Nonreactive [facility] Comment on above: Non-ReactiveReactive Repeatedly reactive samples must be confirmed according to CDC recommended confirmatory algorithms. The subresults for either HIVAG or AHIV can be used as an aid in the selection of the confirmation algorithm for reactive samples.Send out specimens with Reactive results to [facility] for confirmation.Order the HIV antibody detection and differentiation: #[id number] Nucleated red blood cell per centageOrdered By: Erick Rodriguez on 01-24-2025 Nucleated RBC/100 WBC (Bld) [Ratio] 0 % 0-5 [facility] [employer] Office Visit Reporton 01-24-2025 [employer] Office Visit Report [facility] [place] [facility] [address], [address] [place] [address] OFFICE VISIT Date of Service: 01/24/25 MR#: [id number] Acct: [id number] Name: DEMETRIUS FERNANDES Rep #: [id number] : 1990 Provider: MARY JANE godoy Age/Sex: 34/F Location: 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 ac (more content not included)... Normal [facility] Platelet countOrdered By: Lalo Rodriguez on 01-24-2025 Platelets (Bld) [#/Vol] 262 10*3/uL 150-450 [facility] RBC Auto (Bld) [#/Vol]Ordere d By: Erick Rodriguez on 01-24-2025 RBC (Bld) [#/Vol] 3.91 10*6/uL Low 4.2-5.4 [facility] Syphilis Antibodieson 2024 Syphilis Abs Non-Reactive Normal Nonreactive [facility] Comment on above: Performed By: #### L 335.9745 #### [facility] [address] [place], [place], [id number] Type AND Screenon 01-24-2025 ABO and Rh group Nom (Bld) Blood group O Rh(D) negative Normal [facility] Comment on above: Order Comment: PN Performed By: #### L 847.8007 #### [facility] [address] [place], [place], [id number] White blood cell (WBC) count Ordered By: Erick Rodriguez on 01-24-2025 WBC (Bld) [#/Vol] 13.8 10*3/uL High 4.4-11.0 [facility] Laboratory - Chemistry and C hemistry - challengeOrdered By: Erick Rodriguez on 01-12-2025 Glucose Ql (U) Negative [facility] Laboratory - UrinalysisOrder ed By: Erick Rodriguez on 01-12-2025 Protein Ql (U) Negative [facility] [employer] Office Visit Reporton 01-12-2025 [employer] Office Visit Report [facility] [address], [address] [place] [address] OFFICE VISIT Date of Service: 01/12/25 MR#: [id number] Acct: [id number] Name: DEMETRIUS FERNANDES Rep #: [id number] : 1990 Provider: MARY JANE godoy Age/Sex: 34/F Location: [facility] [facility] Status: Signed Intake Vital Signs 11/17/24 08:40 12/16/24 09:30 01/12/25 09:43 Height 5 ft 9 in 5 ft 9 in 5 ft 9 in Weight: 328 lb 8 oz BMI 48.4 BP 130/82 H Intake Visit Reasons: 26 wk ob Chief Complaint: 26 Week OB Sisal Operator Required: No Is patient in pain?: No [...] occupational status: employed and unemployed current occupation: [employer] current occupational exposures/hazards: No pets and animals: [...] 1-2 times per week duration: 30-45 minutes/day parul/quaker: None seatbelt use: always do you feel safe at home: Yes additional social history: - 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 Date Name GA/Weeks Outcome Route Bth Weight Gen Labor Lgth Anesthesia Del Locatn Provider FOB 04/14/21 [place] 41 live - full term 8#2oz Male epidural [facility] GP Froilan Delivery Date: 04/14/21 Last [...] with dates (more content not included)... Normal [facility] Laboratory - Chemistry and C hemistry - challengeOrdered By: Fiordaliza Zhong on 12-16-2024 Glucose Ql (U) Negative [facility] - UrinalysisOrder ed By: Fiordaliza Zhong on 12-16-2024 Protein Ql (U) Negative [facility] [employer] Office Visit Reporton 12-16-2024 [employer] Office Visit Report [facility]'s [address], [address] [place] [address] OFFICE VISIT Date of Service: 12/16/24 MR#: [id number] Acct: [id number] Name: DEMETRIUS FERNANDES Rep #: [id number] : 1990 Provider: Dr. Fiordaliza leong MD Age/Sex: 34/F Location: 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 Date Name GA/Weeks Outcome Route Bth Weight Infant Gen Labor Lgth Anesthesia Del Locatn Provider FOB 04/14/21 [place] 41 live - full term 8#2oz Male epidural [facility] GP Froilan Delivery Date: 04/14/21 Last [...] this . (more content not included)... Normal [facility] L3410.9992on 11-23-2024 [facility] Misc. COMMENT Normal . [facility] Comment on above: Order Comment: Speci men Comment: SEE END OF THIS REPORT FOR CORRECTED REPORT COMMENTS [id number] msAFP SERUM RT Result Comment: Test Ordered: [id number] AFP, Serum, Open Spina Bifida Results Comment TG Reference Range: . The MOM and risk factors of this report have been modified based on new information supplied to us by the client or their designated retail representative. The Weight was changed from Not [...] Customer Services to discuss available options. The [place] [employer] recommends amniocentesis [...] TG Reference Range: . Candice Simmons, Ph.D., [facility] Director References: Available Upon Request. Multiples Of Median Cutoffs For AFP Elevations Worrell 2.5 Black 2.8 IDD 2.0 Twins 4.5 Abbreviation Definitions IDD - Insulin Dep Diabetes OSBR - Open Spina Bifida Risk For further inquiries contact [facility] at [phone]. This test was developed and its performance characteristics determined by [employer]. It has not been cleared or approved by the Food and Drug Administration. Performed at: - [facility] [place], [place] [id number] Product Evangelist: Cara Lanza [facility], Phone: [phone] Performed at: - [address] [id number] Product Evangelist: Jake Ferreira PhD, Phone: [phone] AMENDED REPORT 11/23/24 1609 [facility]. previously reported as: COMMENT Test Ordered: [id number] AFP, Serum, Open Spina Bifida Results Report [...] TG Reference Range: . Candice Simmons, Ph.D., [facility] Director References: Available Upon Request. Multiples Of Median Cutoffs For AFP Elevations Worrell 2.5 Black 2.8 IDD 2.0 Twins 4.5 Abbreviation Definitions IDD - Insulin Dep Diabetes OSBR - Open Spina Bifida Risk For further inquiries contact [facility] at [phone]. This test was developed and its performance characteristics determined by [employer] It has not been cleared or approved by the Food and Drug Administration. Performed at: - [facility] [address] [facility], [place], [place] [id number] Product Evangelist: Cara Lanza [facility], Phone: [phone] Performed at (more content not included)... Performed By: #### L 3410.9992 #### [facility] [address] [place], [place], [id number] Laboratory - Chemistry and C hemistry - challengeOrdered By: Erick Rodriguez on 11-17-2024 Glucose Ql (U) Negative [facility] - UrinalysisOrder ed By: Erick Rodriguez on 11-17-2024 Protein Ql (U) Negative [facility] [employer] Agent Office Visit Reporton 11-17-2024 [employer] Agent Office Visit Report [facility]'s [address], [address] [place] [address] OFFICE VISIT Date of Service: 11/17/24 MR#: [id number] Acct: [id number] Name: DEMETRIUS FERNANDES Rep #: [id number] : 1990 Provider: MARY JANE godoy Age/Sex: 34/F Location: [facility] Status: Signed Intake Vital Signs 09/23/24 09:08 10/22/24 10:18 11/17/24 08:40 Height 5 ft 9 in 5 ft 9 in 5 ft 9 in Weight: 317 lb 8 oz BMI 46.8 BP 126/80 H Intake Visit Reasons: 18wk ob Chief Complaint: 18 Week OB Sisal Operator Required: No Is patient in pain?: No [...] occupational status: employed and unemployed current occupation: [employer] current occupational exposures/hazards: No pets and animals: [...] 1-2 times per week duration: 30-45 minutes/day parul/quaker: None seatbelt use: always do you feel safe at home: Yes additional social history: - 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 Date Name GA/Weeks Outcome Route Bth Weight Infant [facility] 04[facility]14[facility]21 [place] 40 live - full term 8#2oz Male epidural [facility] GP Froilan Delivery Date: 04/14/21 Last [...] NIPT-very concerned (more content not included)... Normal [facility] - Chemistry and C hemistry - challengeOrdered By: Aye Mcdowell on 10-22-2024 Glucose Ql (U) Negative [facility] - UrinalysisOrder ed By: Aye Mcdowell on 10-22-2024 Protein Ql (U) Negative [facility] [employer] Agent Office Visit Reporton 10-22-2024 [employer] Agent Office Visit Report [facility] [address], [address] [place] [address] OFFICE VISIT Date of Service: 10/22/24 MR#: [id number] Acct: [id number] Name: DEMETRIUS FERNANDES Rep #: [id number] : 1990 Provider: Dr. Aye Morel, Age/Sex: 34/F Location: [facility] Status: Signed Intake Vital Signs 04/13/21 20:08 09/23/24 09:08 10/22/24 10:18 10/22/24 10:18 Height 5 ft 9 in 5 ft 9 in 5 ft 9 in 5 ft 9 in Weight: 312 lb 2 oz BMI 46.0 BP 119/76 Intake Visit Reasons: 14wk OB Sisal Operator Required: No Is patient in pain?: No [...] occupational status: employed and unemployed current occupation: [employer] current occupational exposures/hazards: No pets and animals: [...] 1-2 times per week duration: 30-45 minutes/day parul/quaker: None seatbelt use: always do you feel safe at home: Yes additional social history: - 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 Date Name GA/Weeks Outcome Route Bth Weight Infant Gen Labor Lgth Anesthesia Del Locatn Provider FOB 04/14/21 [place] 41 live - full term 8#2oz Male epidural [facility] GP Froilan Delivery Date: 04/14/21 Last [...] NIPT-very concerned (more content not included)... Normal [facility] Miscellaneous procedureOrder ed By: Aye Mcdowell on 10-04-2024 Miscellaneous Test Comment SEE SCANNED REPORT [facility] NATERAon 10-04-2024 NATURA SEE SCANNED REPORT Normal [facility] Comment on above: Performed By: #### L 900.0098 #### [facility] [address] [place], [place], [address] PAP IG HPV APTIMA 16/18,45on 09-28-2024 ADEQ Comment Normal . [facility] Comment on above: Order Comment: Speci men Comment: [id number] Specimen Comment: Source.............Cervix;Endocervix Specimen Comment: LMP / Prev Treat...[id number] Specimen Comment: Other.............. Specimen Comment: No. of containers..01 ThinPrep Vial Result Comment: Sati sfactory for evaluation. No endocervical component is identified. An endocervical component is not commonly seen in the patient. Performed By: #### L 7000.1800, L7400.0280, M100.2200 #### [facility] [address] [place], [place], [address] COMM . Normal . [facility] Comment on above: Order Comment: Speci men Comment: [id number] Specimen Comment: Source.............Cervix;Endocervix Specimen Comment: LMP / Prev Treat...[id number] Specimen Comment: Other.............. Specimen Comment: No. of containers..01 ThinPrep Vial Performed By: #### L 7000.1800, L7400.0280, M100.2200 #### [facility] [address] [place], [place], [address] COMMENT Comment Normal . [facility] Comment on above: Order Comment: Speci men Comment: [id number] Specimen Comment: Source.............Cervix;Endocervix Specimen Comment: LMP / Prev Treat...[id number] Specimen Comment: Other.............. Specimen Comment: No. of containers..01 ThinPrep Vial Result Comment: This liquid based ThinPrep(R) pap test was screened with the use of an image guided system. Performed By: #### L 7000.1800, L7400.0280, M100.2200 #### [facility] [address] [place], [place], [address] DIAG Comment Normal . [facility] Comment on above: Order Comment: Speci men Comment: [id number] Specimen Comment: Source.............Cervix;Endocervix Specimen Comment: LMP / Prev Treat...[id number] Specimen Comment: Other.............. Specimen Comment: No. of containers..01 ThinPrep Vial Result Comment: NEGA TIVE FOR INTRAEPITHELIAL LESION OR MALIGNANCY. Performed By: #### L 7000.1800, L7400.0280, M100.2200 #### [facility] [address] [place], [place], [address] HPV APTIMA, HR Negative Normal Negative [facility] Comment on above: Order Comment: Speci men Comment: [id number] Specimen Comment: Source.............Cervix;Endocervix Specimen Comment: LMP / Prev Treat...[id number] Specimen Comment: Other.............. Specimen Comment: No. of containers..01 ThinPrep Vial Result Comment: This nucleic acid amplification test detects fourteen high- risk HPV types (16,18,31,33,35,39,45,51,52,56,58,59,66,68) without differentiation. Performed By: #### L 7000.1800, L7400.0280, M100.2200 #### [facility] [address] [place], [place], [address] HPV Sarah Rfx Comment Normal . [facility] Comment on above: Order Comment: Speci men Comment: [id number] Specimen Comment: Source.............Cervix;Endocervix Specimen Comment: LMP / Prev Treat...[id number] Specimen Comment: Other.............. Specimen Comment: No. of containers..01 ThinPrep Vial Result Comment: Crit mellissa not met, HPV Genotype not performed. Performed at: - [address] [id number] Product Evangelist: Silvia Irwin MD, Phone: [phone] Performed at: = - [facility] [id number] Product Evangelist: Silvia Irwin MD, Phone: [phone] Performed By: #### L 7000.1800, L7400.0280, M1.0 #### [facility] [address] [facility] [place], [place], [address] PAPSMR Comment Normal . [facility] Comment on above: Order Comment: Speci men Comment: [id number] Specimen Comment: Source.............Cervix;Endocervix Specimen Comment: LMP / Prev Treat...[id number] Specimen Comment: Other.............. Specimen Comment: No. of [...] By: #### L 7000.1800, L7400.0280, M100.2200 #### [facility] [address] [place], [address] PERFORM Comment Normal . [facility] Comment on above: Order Comment: Speci men Comment: [id number] Specimen Comment: Source.............Cervix;Endocervix Specimen Comment: LMP / Prev Treat...[id number] Specimen Comment: Other.............. Specimen Comment: No. of containers..01 ThinPrep Vial Result Comment: Tammy Horan, Workforce Staffing Advisor (ASCP) Performed By: #### L 7000.1800, L7400.0280, M100.2200 #### [facility] [address] [place], [address] Chlamydia/GC RAIAN aptimaon CHLAMY,NUC ACID Negative Normal Negative [facility] Comment on above: Performed By: #### L 7000.1800, L7400.0280, M100.2200 #### [facility] [address] [place], [address] GC BY NUC ACID Negative Normal Negative [facility] Comment on above: Result Comment: Perf ormed at: =G - [facility] [address] [id number] Product Evangelist: Silvia Irwin MD, Phone: [phone] Performed By: #### L 7000.1800, L7400.0280, M100.2200 #### [facility] [address] [place], [address] Urine Cultureon 09-24-2024 [facility] Culture exhibits no growth. Normal [facility] Comment on above: Performed By: #### L 7000.1800, L7400.0280, M100.2200 #### [facility] [address] [place], [address] Absolute lymphocyte countOrd ered By: Greg Rich on 09-23-2024 Lymphocytes Auto (Unsp spec) [#/Vol] 2.53 10*3/uL 0.83-4.51 [facility] Absolute neutrophil countOrd ered By: Greg Rich on 09-23-2024 Neutrophils (Bld) [#/Vol] 8.7 10*3/uL High 2.0-7.7 [facility] Automated lymphocyte count a s percentage of total leukocytesOrdered By: Greg Rich on 09-23-2024 Lymphocytes/100 WBC Auto (Unsp spec) 20.5 % 19-41 [facility] Basophil percentageOrdered B y: Greg Rich on 09-23-2024 Basophils/100 WBC (Bld) 0.5 % 0-1 [facility] C. trachomatis rRNA ARIAN+prob e Ql (Unsp spec)Ordered By: Greg Rich on 09-23-2024 Chlamydia DNA (ARIAN) Negative Negative [facility] CBC W/Diff, Automatedon 09-11 Absolute Lymph 2.53 X10 3/uL Normal 0.83-4.51 [facility] Comment on above: Performed By: #### L 100.0500 #### [facility] [address] [place], [address] Absolute Neut 8.7 X10 3/uL High 2.0-7.7 [facility] Comment on above: Performed By: #### L 100.0500 #### [facility] [address] [place], [address] Basophils/100 WBC (Bld) 0.5 % Normal 0-1 [facility] Comment on above: Performed By: #### L 100.0500 #### [facility] [address] [place], [address] Eosinophils/100 WBC (Bld) 1.2 % Normal 0-5 [facility] Comment on above: Performed By: #### L 100.0500 #### [facility] [address] [place], [address] Erythrocyte distribution width (RBC) [Ratio] 14.0 % Normal 11.6-14.6 [facility] Comment on above: Performed By: #### L 100.0500 #### [facility] [address] [place], [address] Hematocrit (Bld) [Volume fraction] 36.9 % Low 37-47 [facility] Comment on above: Performed By: #### L 100.0500 #### [facility] [address] [place], [address] Hemoglobin (Bld) [Mass/Vol] 12.0 g/dL Normal 12.0-15.0 [facility] Comment on above: Performed By: #### L 100.0500 #### [facility] [address] [place], [address] IG% 0.300 Normal 0.0-0.9 [facility] Comment on above: Result Comment: IG% - Immature Granulocytes (promyelocytes, myelocytes and metamyelocytes) > 1% indicates that a LEFT SHIFT is Present. Performed By: #### L 100.0500 #### [facility] [address] [place], [address] Lymphocytes/100 WBC (Bld) 20.5 % Normal 19-41 [facility] Comment on above: Performed By: #### L 100.0500 #### [facility] [address] [place], [address] MCH (RBC) [Entitic mass] 27.3 pg Normal 27.0-32.0 [facility] Comment on above: Performed By: #### L 100.0500 #### [facility] [address] [place], [address] MCHC (RBC) [Mass/Vol] 32.5 g/dL Normal 32-36 [facility] Comment on above: Performed By: #### L 100.0500 #### [facility] [address] [place], [address] MCV (RBC) [Entitic vol] 83.9 fL Normal 81-99 [facility] Comment on above: Performed By: #### L 100.0500 #### [facility] [address] [place], [address] Monocytes/100 WBC (Bld) 7.0 % Normal 0-10 [facility] Comment on above: Performed By: #### L 100.0500 #### [facility] [address] [place], [address] Neutrophils/100 WBC (Bld) 70.5 % High 47-70 [facility] Comment on above: Performed By: #### L 100.0500 #### [facility] [address] [place], [address] Nucleated RBC (Bld) [#/Vol] 0 10*3/uL Normal 0-5 [facility] Comment on above: Performed By: #### L 100.0500 #### [facility] [address] [place], [address] Platelet mean volume (Bld) [Entitic vol] 10.7 fL Normal 6.2-12.0 [facility] Comment on above: Performed By: #### L 100.0500 #### [facility] [address] [place], [address] Platelets (Bld) [#/Vol] 294 10*3/uL Normal 150-450 [facility] Comment on above: Performed By: #### L 100.0500 #### [facility] [address] [place], [address] RBC (Bld) [#/Vol] 4.40 10*6/uL Normal 4.2-5.4 [facility] Comment on above: Performed By: #### L 100.0500 #### [facility] [address] [place], [address] RDW SD 43.3 fl Normal 35.1-43.9 [facility] Comment on above: Performed By: #### L 100.0500 #### [facility] [address] [place], [address] WBC (Bld) [#/Vol] 12.3 10*3/uL High 4.4-11.0 [facility] Comment on above: Performed By: #### L 100.0500 #### [facility] [address] [place], [address] Cervical or vaginal specimen microscopic examination by liquid based cytology (reportOrdered By: Greg Rich on 09-23-2024 Cytology report Cyto stain.thin prep Doc (Cvx/Vag) Comment . [facility] Comment on above: Criteria not met, HP V Genotype not performed.Performed at: - [address] [id number] Director: Silvia Irwin MD, Phone: [phone] at: =[address] [id number] Director: Silvia Irwin MD, Phone: [phone] Cervical or vagninal specime n microscopic examination by cytology stain (reported asOrdered By: Greg Rich on 09-23-2024 Cytology report Cyto stain Doc (Cvx/Vag) Comment . [facility] Comment on above: The Pap smear [...] rRNA ARIAN+probe Ql (Unsp spec) Negative Negative [facility] [employer] Cyto stain Nom (C vx/Vag) [ID]Ordered By: Greg Rich on 09-23-2024 Pap Smear Performed By Comment . [facility] Comment on above: Jorge A Art totechnologist (ASCP) Cytology report Cyto stain D oc (Cvx/Vag)Ordered By: Greg Rich on 09-23-2024 Thin Prep Pap Smear Comment . [facility] Comment on above: The Pap smear [...] 09-23-2024 HPV Genotype Special Info Comment . [facility] Comment on above: Criteria not met, HP V Genotype not performed.Performed at: - [facility] [id number] Director: Silvia Irwin MD, Phone: [phone] at: = - [facility] [address] [id number] Director: Silvia Irwin MD, Phone: [phone] Detection in cervical specim en of any of human papilloma virus (HPV) 16, 18, 31, 33,Ordered By: Greg Rich on 09-23-2024 HPV 16+18+31+33+35+39+45+51+ 52+56+58+59+66+68 DNA Probe+sig amp Ql (Cvx) Negative Negative [facility] Comment on above: This nucleic acid am plification test detects fourteen high-risk HPV types (16,18,31,33,35,39,45,51,52,56,58,59,66,68)without differentiation. Eosinophil percentageOrdered By: Greg Rich on 09-23-2024 Eosinophils/100 WBC (Bld) 1.2 % 0-5 [facility] Erythrocyte distribution wid th ratioOrdered By: Greg Rich on 09-23-2024 Erythrocyte distribution width (RBC) [Ratio] 14.0 % 11.6-14.6 [facility] Erythrocyte distribution wid th standard deviationOrdered By: Greg Rich on 09-23-2024 Erythrocyte distribution width (RBC) [Entitic vol] 43.3 fL 35.1-43.9 [facility] Erythrocyte distribution width (RBC) [Ratio] 43.3 fl 35.1-43.9 [facility] HBV surface Ag Ql (S)Ordered By: Greg Rich on 09-23-2024 Hepatitis B Surface Antigen Non-Reactive Nonreactive [facility] Comment on above: Reactive: Presumptiv e evidence of HBV. Repeatedly reactive samples must be confirmed using a neutralization test ([employer] HBsAg Confirmatory Test)Non-Reactive: HBsAg not detected; does not exclude the possibility of exposure to HBV HPV 16+18+31+33+35+39+45+51+ 52+56+58+59+66+68 DNA Probe+sig amp Ql (Cvx)Ordered By: Greg Rich on 09-23-2024 Human Papillomavirus High Risk Negative Negative [facility] Comment on above: This nucleic acid am plification test detects fourteen high-risk HPV types (16,18,31,33,35,39,45,51,52,56,58,59,66,68)without differentiation. Hematocrit Auto (Bld) [Volum e fraction]Ordered By: Greg Rich on 09-23-2024 Hematocrit (Bld) [Volume fraction] 36.9 % Low 37-47 [facility] Hemoglobin A1con 09-23-2024 HbA1c (Bld) [Mass fraction] 5.6 % Low <=5.6 [facility] Comment on above: Performed By: #### L 509.8002 #### [facility] [address] [place] [address], [address] Hemoglobin A1c percentageOrd ered By: Greg Rich on 09-23-2024 HbA1c (Bld) [Mass fraction] 5.6 % Low >5.7 [facility] Hemoglobin measurementOrdere d By: Greg Rich on 09-23-2024 Hemoglobin (Bld) [Mass/Vol] 12.0 g/dL 12.0-15.0 [facility] Hepatitis C antibodyOrdered By: Greg Rich on 09-23-2024 Hepatitis C Antibody Non-Reactive Nonreactive [facility] Comment on above: Reactive: Presumptiv e evidence of antibodies to HCV. Follow CDC recommendations for supplemental testing.Non-Reactive: Antibodies to HCV were not detected; does not exclude the possibility of exposure to HCVReactive Results are presumptive evidence of antibodies to HCV. Follow CDC recommendations for supplemental testing.Order confirmation testing: HCV Quant by PCR testing - HCVPCR #[id number] Non Reactive: < 0.8 Equivocal: >/= 0.8 to < 1.0 Reactive: >/= 1.0The CDC requires that a reactive/equivocal HCV antibody result be sent out for confirmation. HCV Quant by PCR testing. Image-guided ThinPrep PapOrd ered By: Greg Rich on 09-23-2024 Pap Smear Note Comment . [facility] Comment on above: This liquid based Th inPrep(R) pap test was screened withthe use of an image guided system. Image-guided liquid-based Pa pOrdered By: Greg Rich on 09-23-2024 Pap Smear Diagnosis Comment . [facility] [facility] Comment on above: NEGATIVE FOR INTRAEP ITHELIAL LESION OR MALIGNANCY. Immature granulocytes/100 WB C Auto (Bld)Ordered By: Greg Rich on 09-23-2024 Immature granulocytes/100 WBC (Bld) 0.300 % 0.0-0.9 [facility] Comment on above: IG% - Immature Granu locytes (promyelocytes, myelocytes and metamyelocytes) > 1% indicates that a LEFT SHIFT is Present. L3890.6006on 09-23-2024 HIV Non-Reactive Normal Nonreactive [facility] Comment on above: Result Comment: Non- Reactive Reactive Repeatedly reactive samples must be confirmed according to CDC recommended confirmatory algorithms. The subresults for either HIVAG or AHIV can be used as an aid in the selection of the confirmation algorithm for reactive samples. Send out specimens with Reactive results to [facility] for confirmation. Order the HIV antibody detection and differentiation: lc#[id number] Performed By: #### L 100.0500 #### [facility] [place], [address] L3890.6102on 09-23-2024 HEP B Surf Ag Non-Reactive Normal Nonreactive [facility] Comment on above: Result Comment: Reac tive: Presumptive evidence of HBV. Repeatedly reactive samples must be confirmed using a neutralization test (Elecsys HBsAg Confirmatory Test) Non-Reactive: HBsAg not detected; does not exclude the possibility of exposure to HBV Performed By: #### L 100.0500 #### [facility] [address] [place], [address] L3890.6301on 09-23-2024 Hepatitis C Ab Non-Reactive Normal Nonreactive [facility] Comment on above: Result Comment: Reac tive: Presumptive evidence of antibodies to HCV. Follow CDC recommendations for supplemental testing. Non-Reactive: Antibodies to HCV were not detected; does not exclude the possibility of exposure to HCV Reactive Results are presumptive evidence of antibodies to HCV. Follow CDC recommendations for supplemental testing. Order confirmation testing: HCV Quant by PCR testing - HCVPCR #[id number] Non Reactive: < 0.8 Equivocal: >/= 0.8 to < 1.0 Reactive: >/= 1.0 The CDC requires that a reactive/equivocal HCV antibody result be sent out for confirmation. HCV Quant by PCR testing. Performed By: #### L 100.0500 #### [facility] [address] [place], [address] L509.4006on 09-23-2024 Rubella IgG REAC Normal Nonreactive [facility] Comment on above: Result Comment: Anti body Result: Interpretation Non-Reactive: Non-Immune Reactive: Immune The following results were obtained with the Elecsys Rubella IgG assay. Results from assays of other manufacturers cannot be used interchangeably. Performed By: #### L 100.0500 #### [facility] [address] [place], [address] L509.8002on 09-23-2024 Syphilis Abs Non-Reactive Normal Nonreactive [facility] Comment on above: Performed By: #### L 100.0500 #### [facility] [address] [place], [address] Laboratory - CytologyOrdered By: Greg Rich on 09-23-2024 [employer] Cyto stain Nom (Cvx/Vag) [ID] Comment . [facility] Comment on above: Jorge A Art totechnologist (ASCP) Laboratory - Microbiology an d Antimicrobial susceptibilityOrdered By: Greg Rich on 09-23-2024 HBV surface Ag Ql (S) Non-Reactive Nonreactive [facility] Comment on above: Reactive: Presumptiv e evidence of HBV. Repeatedly reactive samples must be confirmed using a neutralization test (Elecsys HBsAg Confirmatory Test)Non-Reactive: HBsAg not detected; does not exclude the possibility of exposure to HBV Laboratory - Miscellaneous t estsOrdered By: Greg Rich on 09-23-2024 Service comment (Unsp spec) [Interp] . . [facility] Lymphocytes Auto (Unsp spec) [#/Vol]Ordered By: Greg Rich on 09-23-2024 Lymphocytes (Bld) [#/Vol] 2.53 10*3/uL 0.83-4.51 [facility] Lymphocytes/100 WBC Auto (Un sp spec)Ordered By: Greg Rich on 09-23-2024 Lymphocytes/100 WBC (Bld) 20.5 % 19-41 [facility] MCV (mean corpuscular volume ) determinationOrdered By: Greg Rich on 09-23-2024 MCV (RBC) [Entitic vol] 83.9 fL 81-99 [facility] Mean corpuscular hemoglobin (MCH) determinationOrdered By: Greg Rich on 09-23-2024 MCH (RBC) [Entitic mass] 27.3 pg 27.0-32.0 [facility] Mean corpuscular hemoglobin concentration (MCHC) determinationOrdered By: Greg Rich on 09-23-2024 MCHC (RBC) [Mass/Vol] 32.5 g/dL 32-36 [facility] Mean platelet volume determi nationOrdered By: Greg Rich on 09-23-2024 Platelet mean volume (Bld) [Entitic vol] 10.7 fL 6.2-12.0 [facility] Miscellaneous procedureOrder ed By: Greg Rich on 09-23-2024 Miscellaneous Test Comment SEE SCANNED REPORT [facility] Monocyte percentageOrdered B y: Greg Rich on 09-23-2024 Monocytes/100 WBC (Bld) 7.0 % 0-10 [facility] NATERAon 09-23-2024 NATURA SEE SCANNED REPORT Normal [facility] Comment on above: Order Comment: Comme nts: Day #1 Reason for Laboratory Test Performed By: #### L 100.0500 #### [facility] [address] [place], [address] Neisseria gonorrhoeae nuclei c acid detection by amplified probe techniqueOrdered By: Greg Rich on 09-23-2024 N. gonorrhoeae DNA ARIAN+probe Ql (Unsp spec) Negative Negative [facility] Comment on above: Performed at: =[address] [id number] Director: Silvia Irwin MD, Phone: [phone] Neutrophil percentageOrdered By: Greg Rich on 09-23-2024 Neutrophils/100 WBC (Bld) 70.5 % High 47-70 [facility] No Panel InformationOrdered By: Greg Rich on 09-23-2024 Pap Smear Specimen Adequacy Comment . [facility] Comment on above: Satisfactory for rosa luation. No endocervical component is identified.An endocervical component is not commonly seen in the patient. HIV (1&2) Antibody Non-Reactive Nonreactive [facility] Comment on above: Non-ReactiveReactive Repeatedly reactive samples must be confirmed according to CDC recommended confirmatory algorithms. The subresults for either HIVAG or AHIV can be used as an aid in the selection of the confirmation algorithm for reactive samples.Send out specimens with Reactive results to [facility] for confirmation.Order the HIV antibody detection and differentiation: #[id number] Nucleated red blood cell per centageOrdered By: Greg Rich on 09-23-2024 Nucleated RBC/100 WBC (Bld) [Ratio] 0 % 0-5 [facility] [employer] Office Visit Reporton 09-23-2024 [employer] Agent Office Visit Report [facility] [address], [address] [place] [address] OFFICE VISIT Date of Service: 09/23/24 MR#: [id number] Acct: [id number] Name: DEMETRIUS FERNANDES Rep #: [id number] : 1990 Provider: ZACHARY Way ams Age/Sex: 34/F Location: [facility] [place] Status: Signed Intake Vital Signs 04/13/21 20:08 [...] occupational status: employed and unemployed 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 Date Name GA/Weeks Outcome Route Bth Weight Gen Labor Lgth Anesthesia Del Locatn Provider FOB 04/14/21 [place] 41 live - full term 8#2oz Male epidural [facility] GP [place] Delivery Date: 04/14/21 Last Updated by: Siim Zarate 2nd degree laceration HPI 10 WK [...] dates. accepts (more content not included)... Normal [facility] Platelet countOrdered By: Akbar Rich on 09-23-2024 Platelets (Bld) [#/Vol] 294 10*3/uL 150-450 [facility] RBC Auto (Bld) [#/Vol]Ordere d By: Greg Rich on 09-23-2024 RBC (Bld) [#/Vol] 4.40 10*6/uL 4.2-5.4 [facility] Rubella immune status determ ination by IgG antibody assayOrdered By: Greg Rich on 09-23-2024 Rubella IgG Antibody REAC Nonreactive [facility] Comment on above: Antibody Result: Int erpretationNon-Reactive: Non-ImmuneReactive: ImmuneThe following results were obtained with the Elecsys Rubella IgG assay. Results from assays of other manufacturers cannot be used interchangeably. Service comment (Unsp spec) [Interp]Ordered By: Greg Rich on 09-23-2024 Pap Smear Comment (3) . . [facility] T. pallidum abOrdered By: Akbar Rich on 09-23-2024 Syphilis Total Antibody Non-Reactive Nonreactiv e [facility] Type AND Screenon 09-23-2024 ABO and Rh group Nom (Bld) Blood group O Rh(D) negative Normal [facility] Comment on above: Order Comment: Comme nts: Day #1 Reason for Laboratory Test Performed By: #### L 100.0500 #### [facility] [address] [place], [address] Urine cultureOrdered By: Luan Rich on 09-23-2024 Bacteria identified Cx Nom (U) Culture exhibits no growth. [facility] White blood cell (WBC) count Ordered By: Greg Rich on 09-23-2024 WBC (Bld) [#/Vol] 12.3 10*3/uL High 4.4-11.0 [facility] Serum Varicella zoster virus IgG antibody assay by immunoassay (units/volume)Ordered By: Cristina Barros on 03-06-2023 VZV IgG IA Qn (S) 3665 index Immune >165 [facility] Comment on above: Negative <135 Equivo eben 135 - 165 Positive >165A positive result generally indicates exposure to thepathogen or administration of specific immunoglobulins,but it is not indication of active infection or stageof disease.Performed at: - [address] [id number] Director: Jake Ferreira PhD, Phone: [phone] No Panel Informationon 02-19 Rubella IgG Antibody Reactive Nonreactive [facility] Work Phone: Comment on above: Antibody Results Int erpretation of Immune Status Non Reactive Presumed Non-Immune Equivocal Equivocal Reactive Presumed Immune Serum measles virus IgG anti body assay by immunoassay (units/volume)on 02-19-2022 MeV IgG IA Qn (S) 150.0 AU/mL Immune >16.4 [facility] Work Phone: Comment on above: Negative <13.5 Equiv ocal 13.5 - 16.4 Positive >16.4Presence of antibodies to Rubeola is presumptive evidenceof immunity except when acute infection is suspected.Performed at: [address] [id number] Director: Jake Ferreira PhD, Phone: [phone] Serum mumps virus IgG antibo dy assay (units/volume)on 02-19-2022 MuV IgG Qn (S) 16.6 AU/mL Immune >10.9 [facility] Work Phone: Comment on above: Negative <9.0 Equivo eben 9.0 - 10.9 Positive >10.9A positive result generally indicates past exposure toMumps virus or previous vaccination. Vital Signs Date Time Vital Sign Value Performing Clinician Jenelle simmons 03-30-2025 17:29-0400 Body temperature 97 [degF] Erick Brooks PRODUCTION TRAINER-C Work Phone: [facility] 03-30-2025 17:29-0400 Diastolic blood pressure 67 mm[Hg] Erick Brooks PRODUCTION TRAINER-C Work Phone: [facility] 03-30-2025 17:29-0400 Heart rate 73 /min Erick Sidney PRODUCTION TRAINER-C Work Phone: [facility] 03-30-2025 17:29-0400 Respiratory rate 18 /min Erick Brooks PRODUCTION TRAINER-C Work Phone: [facility] 03-30-2025 17:29-0400 SaO2% (BldA) [Mass fraction] 98 % Erick Brooks PRODUCTION TRAINER-C Work Phone: [facility] 03-30-2025 17:29-0400 Systolic blood pressure 127 mm[Hg] Erick Brooks PRODUCTION TRAINER-C Work Phone: [facility] 03-28-2025 05:40-0400 Body height 175.26 cm Erick Sidney PRODUCTION TRAINER-C Work Phone: [facility] 03-28-2025 05:40-0400 Body mass index (BMI) [Ratio] 51.5 kg/m2 Erick Sidney PRODUCTION TRAINER-C Work Phone: [facility] 03-28-2025 05:40-0400 Body weight 158.3 kg Erick Brooks PRODUCTION TRAINER-C Work Phone: [facility] 03-24-2025 10:26-0400 Body height 175.26 cm Erick Brooks PRODUCTION TRAINER-C Work Phone: [facility] 03-24-2025 10:26-0400 Body mass index (BMI) [Ratio] 51 kg/m2 Erick Brooks PRODUCTION TRAINER-C Work Phone: [facility] 03-24-2025 10:26-0400 Body weight 156.74 kg Erick Sidney PRODUCTION TRAINER-C Work Phone: [facility] 03-24-2025 10:26-0400 Diastolic blood pressure 76 mm[Hg] Erick Brooks PRODUCTION TRAINER-C Work Phone: [facility] 03-24-2025 10:26-0400 Systolic blood pressure 132 mm[Hg] Erick Sidney PRODUCTION TRAINER-C Work Phone: [facility] 03-24-2025 09:10-0400 Body height 175.26 cm Erick Sidney PRODUCTION TRAINER-C Work Phone: [facility] 03-24-2025 09:10-0400 Body mass index (BMI) [Ratio] 51.1 kg/m2 Erick Sidney PRODUCTION TRAINER-C Work Phone: [facility] 03-24-2025 09:10-0400 Body weight 157 kg Erick Sidney PRODUCTION TRAINER-C Work Phone: [facility] 03-24-2025 09:10-0400 Diastolic blood pressure 64 mm[Hg] Erick Sidney PRODUCTION TRAINER-C Work Phone: [facility] 03-24-2025 09:10-0400 Heart rate 82 /min Erick Sidney PRODUCTION TRAINER-C Work Phone: [facility] 03-24-2025 09:10-0400 Systolic blood pressure 133 mm[Hg] Erick Brooks PRODUCTION TRAINER-C Work Phone: [facility] 03-21-2025 10:29-0400 Body height 175.26 cm Erick Brooks PRODUCTION TRAINER-C Work Phone: [facility] 03-21-2025 10:29-0400 Body mass index (BMI) [Ratio] 50.5 kg/m2 Erick Sidney PRODUCTION TRAINER-C Work Phone: [facility] 03-21-2025 10:29-0400 Body weight 155.29 kg Erick Sidney PRODUCTION TRAINER-C Work Phone: [facility] 03-21-2025 10:29-0400 Diastolic blood pressure 72 mm[Hg] Erick Sidney PRODUCTION TRAINER-C Work Phone: [facility] 03-21-2025 10:29-0400 Systolic blood pressure 127 mm[Hg] Erick Brooks PRODUCTION TRAINER-C Work Phone: [facility] 03-15-2025 10:55-0400 Respiratory rate 16 /min Erick Sidney PRODUCTION TRAINER-C Work Phone: [facility] 03-15-2025 10:44-0400 Diastolic blood pressure 66 mm[Hg] Erick Sidney PRODUCTION TRAINER-C Work Phone: [facility] 03-15-2025 10:44-0400 Heart rate 74 /min Erick Brooks PRODUCTION TRAINER-C Work Phone: [facility] 03-15-2025 10:44-0400 Systolic blood pressure 123 mm[Hg] Erick Sidney PRODUCTION TRAINER-C Work Phone: [facility] 03-15-2025 10:40-0400 Body height 175.26 cm Erick Brooks PRODUCTION TRAINER-C Work Phone: [facility] 03-15-2025 10:40-0400 Body mass index (BMI) [Ratio] 49.8 kg/m2 Erick Sidney PRODUCTION TRAINER-C Work Phone: [facility] 03-15-2025 10:40-0400 Body weight 153 kg Erick Arguetas PRODUCTION TRAINER-C Work Phone: [facility] 03-09-2025 10:33-0400 Heart rate 67 /min Erick Brooks PRODUCTION TRAINER-C Work Phone: [facility] 03-09-2025 10:33-0400 SaO2% (BldA) [Mass fraction] 96 % Erick Sidney PRODUCTION TRAINER-C Work Phone: [facility] 03-09-2025 10:29-0400 Body height 175.26 cm Erick Sidney PRODUCTION TRAINER-C Work Phone: [facility] 03-09-2025 10:29-0400 Body mass index (BMI) [Ratio] 50.1 kg/m2 Erick Brooks PRODUCTION TRAINER-C Work Phone: [facility] 03-09-2025 10:29-0400 Body weight 154.1 kg Erick Sidney PRODUCTION TRAINER-C Work Phone: [facility] 03-09-2025 10:22-0400 Diastolic blood pressure 58 mm[Hg] Erick Brooks PRODUCTION TRAINER-C Work Phone: [facility] 03-09-2025 10:22-0400 Systolic blood pressure 122 mm[Hg] Erick Brooks PRODUCTION TRAINER-C Work Phone: [facility] 03-09-2025 10:19-0400 Body temperature 97.5 [degF] Erick Sidney PRODUCTION TRAINER-C Work Phone: [facility] 03-09-2025 10:19-0400 Respiratory rate 18 /min Erick Brooks PRODUCTION TRAINER-C Work Phone: [facility] 03-09-2025 08:55-0400 Body height 175.26 cm Erick Sidney PRODUCTION TRAINER-C Work Phone: [facility] 03-09-2025 08:54-0400 Body mass index (BMI) [Ratio] 50.1 kg/m2 Erick Brooks PRODUCTION TRAINER-C Work Phone: [facility] 03-09-2025 08:54-0400 Body weight 153.93 kg Erick Sidney PRODUCTION TRAINER-C Work Phone: [facility] 03-09-2025 08:54-0400 Diastolic blood pressure 85 mm[Hg] Erick Sidney PRODUCTION TRAINER-C Work Phone: [facility] 03-09-2025 08:54-0400 Systolic blood pressure 136 mm[Hg] Erick Sidney PRODUCTION TRAINER-C Work Phone: [facility] 02-22-2025 10:03-0400 Body height 175.26 cm Erick Brooks PRODUCTION TRAINER-C Work Phone: [facility] 02-22-2025 10:03-0400 Body mass index (BMI) [Ratio] 49.9 kg/m2 Erick Brooks PRODUCTION TRAINER-C Work Phone: [facility] 02-22-2025 10:03-0400 Body weight 153.34 kg Erick Sidney PRODUCTION TRAINER-C Work Phone: [facility] 02-22-2025 10:03-0400 Diastolic blood pressure 76 mm[Hg] Erick Sidney PRODUCTION TRAINER-C Work Phone: [facility] 02-22-2025 10:03-0400 Systolic blood pressure 132 mm[Hg] Erick Brooks PRODUCTION TRAINER-C Work Phone: [facility] 02-07-2025 09:25-0400 Body height 175.26 cm Erick Brooks PRODUCTION TRAINER-C Work Phone: [facility] 02-07-2025 09:25-0400 Body mass index (BMI) [Ratio] 49 kg/m2 Erick Sidney PRODUCTION TRAINER-C Work Phone: [facility] 02-07-2025 09:25-0400 Body weight 150.59 kg Erick Brooks PRODUCTION TRAINER-C Work Phone: [facility] 02-07-2025 09:25-0400 Diastolic blood pressure 71 mm[Hg] Erick Rodriguez PRODUCTION TRAINER-C Work Phone: [facility] 02-07-2025 09:25-0400 Systolic blood pressure 107 mm[Hg] Erick Smithtings PRODUCTION TRAINER-C Work Phone: [facility] 01-24-2025 08:40-0400 Body height 175.[address] Aye Dey DO Work Phone: [facility] 01-24-2025 08:30-0400 Body mass index (BMI) [Ratio] 48.9 kg/m2 Dr. Aye Dey DO Work Phone: [facility] 01-24-2025 08:30-0400 Body weight 150.[address] Aye Dey DO Work Phone: [facility] 01-24-2025 08:30-0400 Diastolic blood pressure 72 mm[Hg] Dr. Aye Dey DO Work Phone: [facility] 01-24-2025 08:30-0400 Systolic blood pressure 124 mm[Hg] Dr. Aye Dey DO Work Phone: [facility] 01-12-2025 09:43-0400 Body height 175.26 cm Greg LUIM Work Phone: [facility] 01-12-2025 09:43-0400 Body mass index (BMI) [Ratio] 48.4 kg/m2 Greg LUIM Work Phone: [facility] 01-12-2025 09:43-0400 Body weight 149 kg Greg LUIM Work Phone: [facility] 01-12-2025 09:43-0400 Diastolic blood pressure 82 mm[Hg] Greg LUIM Work Phone: [facility] 01-12-2025 09:43-0400 Systolic blood pressure 130 mm[Hg] Greg LUIM Work Phone: [facility] 12-16-2024 09:30-0400 Body height 175.26 cm Greg Rich CNM Work Phone: [facility] 12-16-2024 09:06-0400 Body mass index (BMI) [Ratio] 47.2 kg/m2 Greg Rich CNM Work Phone: [facility] 12-16-2024 09:06-0400 Body weight 145.14 kg Greg Rich CNM Work Phone: [facility] 12-16-2024 09:06-0400 Diastolic blood pressure 69 mm[Hg] Greg Rich CNM Work Phone: [facility] 12-16-2024 09:06-0400 Systolic blood pressure 119 mm[Hg] Greg Rich CNM Work Phone: [facility] 11-17-2024 08:40-0400 Body height 175.26 cm Greg Rich CNM Work Phone: [facility] 11-17-2024 08:40-0400 Body mass index (BMI) [Ratio] 46.8 kg/m2 Greg Rich CNM Work Phone: [facility] 11-17-2024 08:40-0400 Body weight 144.01 kg Greg Rich CNM Work Phone: [facility] 11-17-2024 08:40-0400 Diastolic blood pressure 80 mm[Hg] Greg Rich CNM Work Phone: [facility] 11-17-2024 08:40-0400 Systolic blood pressure 126 mm[Hg] Greg Rich CNM Work Phone: [facility] 10-22-2024 10:18-0400 Body mass index (BMI) [Ratio] 46 kg/m2 Greg LUIM Work Phone: [facility] 10-22-2024 10:18-0400 Body weight 141.57 kg Greg Rich CNM Work Phone: [facility] 10-22-2024 10:18-0400 Diastolic blood pressure 76 mm[Hg] Greg LUIM Work Phone: [facility] 10-22-2024 10:18-0400 Systolic blood pressure 119 mm[Hg] Greg LUIM Work Phone: [facility] 09-23-2024 09:08-0400 Body height 175.26 cm Greg Rich CNM Work Phone: [facility] 09-23-2024 09:05-0400 Body mass index (BMI) [Ratio] 45.6 kg/m2 Greg Rich CNM Work Phone: [facility] 09-23-2024 09:05-0400 Body weight 140.27 kg Greg Rich CNM Work Phone: [facility] 09-23-2024 09:05-0400 Diastolic blood pressure 67 mm[Hg] Greg Rich CNM Work Phone: [facility] 09-23-2024 09:05-0400 Systolic blood pressure 121 mm[Hg] Greg Rich CNM Work Phone: [facility] Encounters Encounter Date Encounter Type Care Provider Facility Start: 04-11-2025 ambulatory Delmar Almanzar lity:[facility] Start: 03-31-2025 End: 03-31-2025 ambulatory Delmar Luna Facility:[facility] Start: 03-30-2025 Non-patient / Non-visit Dr. Fiordaliza Zhong MD -[facility] Start: 03-29-2025 Non-patient / Non-visit Greg Rich CNM -[facility] Start: 03-28-2025 Non-patient / Non-visit Dr. Fiordaliza Zhong MD -[facility] Start: 03-28-2025 ambulatory Fiordaliza Almanzar lity:[facility] Start: 03-28-2025 End: 03-30-2025 Evaluation and management of inpatient Dr. Fiordaliza Zhong MD -[facility] Work Phone: Start: 03-27-2025 ambulatory Fiordaliza Almanzar lity:[facility] Start: 03-27-2025 Non-patient / Non-visit Dr. Fiordaliza Zhong MD -[facility] Start: 03-24-2025 Non-patient / Non-visit Dr. Fiordaliza Zhong MD -[facility] Start: 03-24-2025 End: 03-24-2025 ambulatory Erick Rodriguez PRODUCTION TRAINER-C Work Phone: -[facility] Start: 03-24-2025 End: 03-24-[address] Fiordaliza Zhong MD -[facility] Work Phone: Start: 03-21-2025 End: 03-21-2025 ambulatory [facility] Start: 03-21-2025 End: 03-21-[address] [facility] Start: 03-21-[address] Fiordaliza Zhong MD -Laboratory Specimen Work Phone: Start: 03-21-2025 End: 03-21-2025 ambulatory Erick Rodriguez PRODUCTION TRAINER-C Work Phone: -[facility] Start: 03-21-2025 End: 03-21-[address] Fiordaliza Zhong MD -[facility] Work Phone: Start: 03-21-2025 End: 03-21-2025 ambulatory Fiordaliza Zhong Facility:[facility] Start: 03-17-2025 End: 03-17-[address] [facility] Start: 03-16-2025 End: 03-16-2025 ambulatory [facility] Start: 03-15-2025 Non-patient / Non-visit Dr. Fiordaliza Zhong MD -[facility] Start: 03-15-2025 End: 03-15-2025 ambulatory Erick Rodriguez PRODUCTION TRAINER-C [facility] Start: 03-15-2025 End: 03-15-[address] [facility] Work Phone: Start: 03-11-2025 End: 03-11-2025 ambulatory GREG Kodak LAYLA [facility] Start: 03-09-2025 ambulatory Damienrosy Luna Jenelle knighty:[facility] Start: 03-09-2025 Non-patient / Non-visit Dr. Aye Dey DO -[facility] Start: 03-09-2025 End: 03-09-[address] Aye Dey DO -[facility] Work Phone: Start: 03-09-2025 End: 03-09-2025 ambulatory Erick Rodriguez PRODUCTION TRAINER-C Work Phone: -[facility] Start: 03-07-2025 End: 03-07-2025 ambulatory COSTA CARDPark [facility] Start: 02-22-2025 End: 02-22-2025 Patient encounter procedure Greg Rich [facility] -[facility] Work Phone: Start: 02-22-2025 End: 02-22-2025 ambulatory Erick Rodriguez PRODUCTION TRAINER-C Work Phone: -[facility] Start: 02-07-2025 End: 02-07-[address] Aye Dey DO -[facility] Work Phone: Start: 02-07-2025 End: 02-07-2025 ambulatory Erick Rodriguez PRODUCTION TRAINER-C Work Phone: -[facility] Start: 01-25-2025 End: 01-25-[address] Aye Dey DO Work Phone: -Laboratory Start: 01-25-2025 End: 01-25-2025 Patient encounter procedure Erick Rodriguez PRODUCTION TRAINER-C -Laboratory Work Phone: Start: 01-24-2025 End: 01-24-2025 Patient encounter procedure Erick Rodriguez PRODUCTION TRAINER-C -[facility] Work Phone: Start: 01-24-2025 End: 01-25-[address] Aye Dey DO Work Phone: -[facility] Start: 01-24-2025 End: 01-24-2025 ambulatory Erickpatti Arguetas Facility:[facility] Start: 01-12-2025 End: 01-12-2025 Patient encounter procedure Erick Rodriguez PRODUCTION TRAINER-C -[facility] Work Phone: Start: 01-12-2025 End: 01-12-2025 ambulatory Greg LUIM Work Phone: -[facility] Start: 12-16-2024 End: 12-16-[address] Fiordaliza Zhong MD -[facility] Work Phone: Start: 12-16-2024 End: 12-16-2024 ambulatory Greg Rich CNM Work Phone: [facility] Work Phone: Start: 11-23-2024 End: 11-23-2024 ambulatory GREG RICH [facility] Start: 11-17-2024 End: 11-17-2024 Patient encounter procedure Erick Rodriguez PRODUCTION TRAINER-C -[facility] Work Phone: Start: 11-17-2024 End: 11-17-2024 ambulatory Greg Rich CNM Work Phone: [facility] Work Phone: Start: 11-17-2024 End: 11-17-2024 ambulatory Erickpatti Arguetas Facility:[facility] Start: 10-22-2024 End: 10-22-[address] Aye Dey DO -[facility] Work Phone: Start: 10-22-2024 End: 10-22-2024 ambulatory Aey Dey Facility:[facility] Start: 10-04-2024 End: 10-04-2024 ambulatory Greg Rich CNM Work Phone: [facility] Work Phone: Start: 10-04-2024 End: 10-04-[address] yAe Dey DO -Lab, [facility] Start: 10-04-2024 End: 10-04-2024 ambulatory Aye Dey Facility:[facility] Start: 09-23-2024 End: 09-23-2024 Patient encounter procedure Grge LUIM -[facility] Work Phone: Start: 09-23-2024 End: 09-23-2024 ambulatory Greg LUIM Work Phone: [facility] Work Phone: Start: 09-23-2024 End: 09-23-2024 ambulatory Greg Rich Facility:[facility] Start: 03-06-2023 End: 03-06-2023 ambulatory [facility] Work Phone: Start: 03-06-2023 End: 03-06-2023 [facility] Start: 02-19-2022 End: 02-19-2022 Patient encounter procedure [facility] Procedures Date Procedure Procedure Detail Performing Clinician Start: 03-28-2025 Serologic test for syphilis Erick briceño PRODUCTION TRAINER-C Work Phone: Start: 03-21-2025 Beta-hemolytic Streptococcus culture Erick Rodriguez PRODUCTION TRAINER-C Work Phone: Start: 01-24-2025 Serologic test for syphilis Dr. Aye Dey DO Work Phone: Start: 11-17-2024 Procedure Greg Rich CNM Work Phone: Comment on above: Test Ordered: [id number] AFP, Serum, Open Sp jeb BifidaResults Report [...] Open Spina Bifida RiskFor further inquiries contact [employer] at [phone].This test was developed and its performance characteristicsdetermined by [employer] It has not been cleared or approvedby the Food and Drug Administration.Performed at: TG - [facility] [address] [place], [place] [id number] Director: Cara Lanza [facility], Phone: [phone] at: CB - [facility] [address] [id number] Director: Jake Ferreira PhD, Phone: [phone] Test Ordered: [id number] AFP, Serum, Open Spina BifidaResults Comment TG Reference Range: .The MOM and risk factors of this report have been modifiedbased on new information supplied to us by the client ortheir designated retail representative.The Weight was changed from Not provided. [...] Open Spina Bifida RiskFor further inquiries contact [employer] at [phone].This test was developed and its performance characteristicsdetermined by [employer] It has not been cleared or approvedby the Food and Drug Administration.Performed at: - [facility] [id number] [facility], [facility], [place] [id number] Director: Cara Lanza [facility], Phone: [phone] at: [address] [id number] Director: Jake Ferreira PhD, Phone: [phone] reported result: COMMENT Edited by: GISELA on 11/23/24:1609 AMENDED REPORT 11/23/24 [facility] [facility] previously reported as: COMMENT Test Ordered: [id number] AFP, Serum, Open Spina BifidaResults Report TG [...] Open Spina Bifida RiskFor further inquiries contact [employer] at [phone].This test was developed and its performance characteristicsdetermined by [employer] It has not been cleared or approvedby the Food and Drug Administration.Performed at: [facility] [employer] [id number] [facility], [facility], [place] [id number] Director: Cara Lanza [facility], Phone: [phone] at: [facility] [id number] Director: Jake Ferreira PhD, Phone: [phone] Start: 10-04-2024 Procedure Greg Rich [facility] Work Phone: Start: 09-23-2024 Liquid based cervical cytology screening Greg Rich [facility] Work Phone: Comment on above: NEGATIVE FOR INTRAEPITHELIAL LESION OR M ALIGNANCY. This liquid based Th inPrep(R) pap test was screened withthe use of an image guided system. Start: 09-23-2024 Urine culture Greg Rich [facility] Work Phone: Start: 09-23-2024 Hepatitis C antibody measurement Greg collazo [facility] Work Phone: Comment on above: Reactive: Presumptive evidence of antibo dies to HCV. Follow CDC recommendations for supplemental testing.Non-Reactive: Antibodies to HCV were not detected; does not exclude the possibility of exposure to HCVReactive Results are presumptive evidence of antibodies to HCV. Follow CDC recommendations for supplemental testing.Order confirmation testing: HCV Quant by PCR testing - HCVPCR #[id number] Non Reactive: < 0.8 Equivocal: >/= 0.8 to < 1.0 Reactive: >/= 1.0The CDC requires that a reactive/equivocal HCV antibody result be sent out for confirmation. HCV Quant by PCR testing. Start: 09-23-2024 Procedure Greg Rich [facility] Work Phone: Start: 09-23-2024 Rubella IgG measurement Greg Rich [facility] Work Phone: Comment on above: Antibody Result: InterpretationNon-React macario: Non-ImmuneReactive: ImmuneThe following results were obtained with the [employer] Rubella IgG assay. Results from assays of other manufacturers cannot be used interchangeably. Start: 09-23-2024 Serologic test for syphilis Greg Blair [facility] Work Phone: Plan of Treatment Date Care Activity Detail Author Start: 03-30-2025 Patient discharge [facility] Start: 03-29-2025 Application of abdom inal corset [facility] Start: 03-28-2025 End: 03-29-2025 [facility] Start: 03-28-2025 Administration of bl ood product [facility] Start: 03-28-2025 Administration of bl ood product [facility] Start: 03-28-2025 Ambulation therapy management [facility] Start: 03-28-2025 Application of device [facility] Start: 03-28-2025 End: 03-28-2025 Application of intermittent pneumatic compression device [facility] Start: 03-28-2025 Assessment of risk o f venous thromboembolism [facility] Start: 03-28-2025 Catheterization of vein [facility] Start: 03-28-2025 Continuous pulse oximetry [facility] Start: 03-28-2025 Deep breathing and c oughing exercises [facility] Start: 03-28-2025 Exercises [facility] Start: 03-28-2025 Measuring intake and output [facility] Start: 03-28-2025 Notification of physician [facility] Start: 03-28-2025 Oxygen therapy [facility] Start: 03-28-2025 Procedure discontinued [facility] Start: 03-28-2025 Provision of activit y privileges [facility] Start: 03-28-2025 Skin care [facility] Start: 03-28-2025 Vital signs measurements [facility] Start: 03-28-2025 Wound care [facility] Start: 03-28-2025 Application of abdom inal corset [facility] Start: 03-28-2025 section Primary C Sec tion (Not Applicable) [facility] Start: 03-28-2025 Admission procedure [facility] Start: 03-24-2025 Patient discharge [facility] Start: 03-15-2025 Nonstress test [facility] Start: 03-15-2025 Obstetric monitoring [facility] Start: 03-15-2025 Vital signs measurements [facility] Start: 03-15-2025 [facility] Start: 03-15-2025 Patient discharge [facility] Start: 03-09-2025 Nonstress test [facility] Start: 03-09-2025 Obstetric monitoring [facility] Start: 03-09-2025 Vital signs measurements [facility] Start: 03-09-2025 [facility] Start: 03-09-2025 Patient discharge [facility] Start: 01-24-2025 CBC W Auto Different ial panel - Blood [facility] Start: 01-24-2025 Measurement of gluco se 2 hours after glucose challenge for glucose tolerance test [facility] Start: 01-24-2025 Serologic test for syphilis [facility] Start: 01-24-2025 [facility] CBC W Auto Different ial panel - Blood [facility] Erythrocyte mean cor puscular volume determination [facility] Hematocrit [Volume F raction] of Blood [facility] Hemoglobin [Mass/vol ume] in Blood [facility] Leukocytes [#/volume ] in Blood [facility] Mean corpuscular hem oglobin concentration determination [facility] Mean corpuscular hem oglobin determination [facility] Measurement of gluco se 2 hours after glucose challenge for glucose tolerance test [facility] Neutrophil count [facility] Neutrophil percent differential count [facility] Patient Education [facility] Work Phone: Platelets [#/volume] in Blood [facility] Red blood cell count [facility] Red cell distributio n width determination [facility] Serologic test for syphilis [facility] Streptococcus agalac tiae [Presence] in Unspecified specimen by Organism specific culture [facility] Immunizations Immunization Date Immunization Notes Care Provider Dwayne samson 01-24-2025 tetanus toxoid, redu lashon diphtheria toxoid, and acellular pertussis vaccine, adsorbed Dr. Aye Dey DO Work Phone: [facility] 01-12-2021 tetanus toxoid, redu lashon diphtheria toxoid, and acellular pertussis vaccine, adsorbed [facility] Payers Date Payer Category Payer Self-pay [id number] Unknown [id number] 1989 Unknown [id number] 2.16.840.1.213814.3.579.2.479 1989 Unknown [id number] 2.16.840.1.933911.3.579.2.479 1989 Unknown [id number] 2.16.840.1.658269.3.579.2.479 1989 Unknown [id number] 2.16.840.1.026249.3.579.2.479 1989 Unknown [id number] 2.16.840.1.891996.3.579.2.479 1989 Unknown [id number] 2.16.840.1.539812.3.579.2.479 1989 Unknown [id number] 2.16.840.1.190270.3.579.2.479 1989 Unknown [id number] 2.16.840.1.198924.3.579.2.479 Unknown [id number] Unknown [id number] Unknown [id number] Unknown [facility] 880 * * DO NOT USE [id number] Unknown [id number] 2.16.840.1.042219.3.579.2.462 Unknown [id number] 2.16.840.1.675597.3.579.2.462 Unknown [id number] 2.16.840.1.011156.3.579.2.462 Unknown [id number] 2.16.840.1.293160.3.579.2.462 Unknown [id number] 2.16.840.1.752570.3.579.2.462 Unknown [id number] 2.16.840.1.658807.3.579.2.462 Unknown [id number] 2.16.840.1.324318.3.579.2.462 Unknown [id number] 2.16.840.1.899740.3.579.2.462 Unknown [id number] 2.16.840.1.785002.3.579.2.462 Unknown [id number] 2.16.840.1.793769.3.579.2.462 Unknown [id number] 2.840.1.649220.3.579.2.462 Unknown [id number] 2..840.1.673713.3.579.2.462 Unknown [id number] 2.840.1.420485.3.579.2.462 Unknown [id number] 2.840.1.711231.3.579.2.462 Unknown [id number] 2.840.1.397522.3.579.2.462 Unknown [id number] 2.16.840.1.632281.3.579.2.462 Unknown [id number] 2.840.1.407737.3.579.2.462 Unknown [id number] 2.840.1.062075.3.579.2.462 Unknown [id number] 2.16.840.1.698279.3.579.2.462 Unknown [id number] 2.16840.1.501277.3.579.2.462 Unknown [id number] 2.16.840.1.668016.3.579.2.462 Unknown [id number] 2.16.840.1.218194.3.579.2.462 Unknown [id number] 2.840.1.075644.3.579.2.462 Unknown [id number] 2.16.840.1.981501.3.579.2.462 Unknown [id number] 2.16.840.1.872542.3.579.2.462 Unknown [id number] 2.16.840.1.229399.3.579.2.462 Unknown [id number] 2.16.840.1.206547.3.579.2.462 Unknown [id number] 2.16840.1.054963.3.579.2.462 Unknown [id number] 2.16.840.1.976007.3.579.2.462 Unknown [id number] 2.840.1.350109.3.579.2.462 Unknown [id number] 2.840.1.088448.3.579.2.462 Social History Date Type Detail Facility Start: 05-30-2021 Tobacco smoking stat [facility] Unknown if ever smoked [facility] Start: 1990 Sex Assigned At Female [facility] Start: 09-14-2024 End: 03-28-2025 Tobacco smoking status HIIS Ex-smoker (finding) [facility] Start: 10-04-2024 End: 10-09-2024 Sex Female (finding) [facility] Patient currentl y [facility] Medical Equipment Procedure Code Equipment Code Equipment Origin al Text Equipment Identifier Dates Blood Sugar Diagnostic (Advanced Gluc Meter Test Strip) strip Start: 03-07-2025 Lancets [facility] Start: 03-07-2025 Blood Sugar Diagnostic (Advanced Gluc [...] 03-30-2025 Functional status Activity Ability Indepe ndent [facility] Work Phone: Mental Status Date Assessment Result Facility 03-28-2025 Cognitive function Level Of Consciousness Awake [facility] Work Phone: Clinical Notes 09-23-2024 to 03-30-2025 Note Date & Type Note Facility 03-30-2025 Progress note [facility] 03-30-2025 Discharge summary Note Date/Time March 30, 2025 3:11pm [facility] Medical Records Department [address] [place] [address] Instructions for Home/Discharge Instructions 03/28/25 0719 MR#: [id number] Acct: [id number] Name: DEMETRIUS FERNANDES Rep #:[id number] : 1990 34 From: Fiordaliza moctezuma MD [...] Up With: Fiordaliza Zhong MD When: Call [phone] to make an appointment for an incision [...] mg PO DAILY (DME) FreeStyle Hardeep 2 Mack Misc See Rx Instructions .ROUTE .MEDSUPPLY Qty: [...] CC: Dr. Delmar Luna MD ~ Signed [facility] Work Phone: 1(348) 396-592809-17-2025 Discharge summary [facility] Medical Records Department [address] [place] [address] Instructions for Home/Discharge Instructions 03/28/25 0719 MR#: [id number] Acct: [id number] Name: DEMETRIUS FERNANDES Rep #:[id number] : 1990 34 From: Fiordaliza moctezuma MD [...] Up With: Fiordaliza Zhong MD When: Call [phone] to make an appointment for an incision [...] mg PO DAILY (DME) FreeStyle Hardeep 2 Mack Misc See Rx Instructions .ROUTE .MEDSUPPLY Qty: [...] CC: Dr. Delmar Luna MD ~ Signed [facility]09-17-2025 Progress note Author Fiordaliza Zhong [facility] Note Date/Time March 30, 2025 5:41pm [facility] Medical Records Department [address] [place] [address] Progress Note - OBGYN 03/30/25 0758 MR#: [id number] Acct: [id number] Name: DEMETRIUS FERNANDES Rep #:[id number] : 1990 34 From: Fiordaliza moctezuma MD PCP: Dr. Delmar Luna MD Status :ADM IN Location: [place] [address] Subjective Subjective Patient doing well without complaints. [...] Cosigner Signature (if applicable): CC: ~ Signed [facility] Work Phone: 1(597) 943-733009-17-2025 Procedure note [facility] Medical Records Department [address] [place] [address] Operative Report 03/28/25 0716 MR#: [id number] Acct: [id number] Name: DEMETRIUS FERNANDES Rep #:[id number] : 1990 34 From: Fiordaliza moctezuma MD PCP: Dr. Delmar Luna MD Status :ADM IN Location: RD190-4 Assessment & Plan (1) Pre-existing severe obesity [...] twice weekly ANFS-BPP and NST. Consult with [facility] ordered. deliver at 37 weeks scheduled for [...] Description: 3 Vessels Delayed Cord Clamping: Yes Press Operator Printing respiratory care instructor: Yes Knotter Hand: Catracho Davison Tasks completed by assistant banquet manager: Opening & closing, Retracting and Other (assisting in deliveryof the ) Additional medical assistant supervisor?: No Complications Complications: No Admit VTE Documentation VTE Present on Admission: No VTE Mechan Device Prophylaxis: SCD's Procedures Urinary/Genital 52xxx-59xxx: 14154 Delivery global pk 03/30/25 0800 Cosigner Signature (if applicable): CC: Dr. Delmar Luna MD; Dr. Fiordaliza Zhong MD~ Signed [facility]09-16-2025 Progress note Author Greg Rich [facility] Note Date/Time March 29, 2025 8:21am [facility] Medical Records Department [address] [place] [address] Progress Note - OBGYN 03/29/25 0818 MR#: [id number] Acct: [id number] Name: DEMETRIUS FERNANDES Rep #:[id number] : 1990 34 From: Greg Rich CNM PCP: Dr. Delmar Luna MD Status :ADM IN Location: HN557-7 Subjective Subjective Patient doing well without complaints. [...] Cosigner Signature (if applicable): CC: ~ Signed [facility] Work Phone: 1(304) 713-933609-16-2025 Progress note [facility] Medical Records Department [address] [place] [address] Progress Note - OBGYN 03/29/25817 MR#: [id number] Acct: [id number] Name: DEMETRIUS FERNANDES Rep #:[id number] : 1990 34 From: Greg Rich CNM PCP: Dr. Delmar Luna MD Status :ADM IN [facility] Subjective Subjective Patient doing well without complaints. [...] Cosigner Signature (if applicable): CC: ~ Signed [facility]09-14-2025 History and physical note Author Fiordaliza Zhong [facility] Note Date/Time March 27, 2025 12:28pm [facility] Medical Records Department [address] [place] [address] History & Physical Exam 03/27/25 1227 MR#: [id number] Acct: [id number] Name: DEMETRIUS FERNANDES Rep #:[id number] : 1990 34 From: Fiordaliza moctezuma MD PCP: Dr. 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 [facility] anatomy order placed 10/22/24-?-?-?-?-?-?-?-?-?-?-?-?- 14w 5d 312 lb 2 oz(+3 lb 2 oz) 119/76 Negative -?-?-?-?-?-?-?--?-?-?-?-?- Negative 168 -?-?-?-?-?-?-?-?-?-?-?-?- JV- nipt was inconclusive. plan for afp between 17-21 weeks. anatomy scan with [facility]. 11/17/24-?-?-?-?-?-?-?-?-?-?-?-?- 18w 3d 317 lb 8 oz(+8 [...] Luna MD; Dr. Fiordaliza Zhong MD~ Signed [facility] Work Phone: 1(697) 104-748609-14-2025 History and physical note [facility] Medical Records Department [address] [place] [address] History & Physical Exam 03/27/25 1227 MR#: [id number] Acct: [id number] Name: DEMETRIUS FERNANDES Rep #:[id number] : 1990 34 From: Fiordaliza moctezuma MD PCP: Dr. Delmar Luna MD Status :PRE IN Location: [facility] History and Physical Date of Admission: 03/28/25 Vital Signs 03/24/2509:10 03/24/2510:26 Height 5 ft 9 in 5 ft 9 in Weight: 345 lb 9 oz BMI 51.0 BP 132/76 H Intake Visit Reasons: 37wk ob before csection *per Sisal Operator Required: No Is patient in pain?: No [...] ea 03/07/25 03/24/25 Rx (FreeStyle Hardeep 2 Mack) lancets #200 ea 03/07/25 03/24/25 Rx Last [...] occupational status: employed and unemployed current occupation: [employer] current occupational exposures/hazards: No pets and animals: [...] 1-2 times per week duration: 30-45 minutes/day parul/quaker: None seatbelt use: always do you feel safe at home: Yes additional social history: - Froilan GUARDADON @ [employer] 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 Date Name GA/Weeks Outcome Route Bth Weight Infant Gen Labor Lgth Anesthesia Del Locatn Provider FOB 04/14/21 [place] 41 live - full term 8#2oz Mal e epidural [facility] GP Froilan Delivery Date: 04/14/21 Last [...] so far elevated in the 140's .Dr. Cerrato wants to do her bpp next [...] Symptoms of Preeclampsia, Infant Feeding No , [place] Education and Family Medical Leave or Disability [...] General: cooperative, healthy appearing, comfortable and anxious [facility] Head: normal to inspection Nose: external nose [...] 36. plan RLTCS 37 weeks recommend by [facility] due to polyhydramnios severe 03/27/25 1228 Cosigner Signature (if applicable): CC: Dr. Delmar Luna MD; Dr. Fiordaliza Zhong MD~ Signed [facility]09-14-2025 [facility] Medical Records Department [address] [facility] [place] [address] History Physical Exam 03/27/25 1227 MR#: [id number] Acct: [id number] Name: DEMETRIUS FERNANDES Rep #: [id number] : 1990 34 From: Fiordaliza Zhong MD PCP: Dr. Delmar Luna MD Status:PRE IN Location: [facility] History and Physical Date of Admission: 03/28/25 Vital Signs 03/24/2509:10 03/24/2510:26 Height 5 ft 9 in 5 ft 9 in Weight: 345 lb 9 oz BMI 51.0 BP 132/76 H Intake Visit Reasons: 37wk ob before csection *per SM Sisal Operator Required: No Is patient in pain?: No [...] ea 03/07/25 03/24/25 Rx (FreeStyle Hardeep 2 Mack) lancets #200 ea 03/07/25 03/24/25 Rx Last [...] occupational status: employed and unemployed current occupation: [employer] current occupational exposures/hazards: No pets and animals: [...] 1-2 times per week duration: 30-45 minutes/day parul/quaker: None seatbelt use: always do you feel safe at home: Yes additional social history: - 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 Date Name GA/Weeks Outcome Route Bth Weight Infant Gen Labor Lgth Anesthesia Del [facility] Provider FOB 04/14/21 [place] 41 live - full term 8#2oz Male epidura l [facility] GP Froilan Delivery Date: 04/14/21 Last [...] Pres Dilation -???-???-???-???-???-???-???-???-???-???-???-???- Effaced (more content not included)...[facility]09-11-2025 Progress [facility] [address] [place] [address], [address] [place] [address] OFFICE VISIT Date of Service: 03/24/25 MR#: [id number] Acct: [id number] Name: DEMETRIUS FERNANDES Rep #: [id number] : 1990 Provider: Dr. Luther Zhong MD Age/Sex: 34/F Location: [facility] Status: Signed Intake Vital Signs 03/24/25 09:10 03/24/25 10:26 Height 5 ft 9 in 5 ft 9 in Weight: 345 lb 9 oz BMI 51.0 BP 132/76 H Intake Visit Reasons: 37wk ob before csection *per Sisal Operator Required: No Is patient in pain?: No [...] ea 03/07/25 03/24/25 Rx (FreeStyle Hardeep 2 Mack) lancets #200 ea 03/07/25 03/24/25 Rx Last [...] occupational status: employed and unemployed current occupation: [employer] current occupational exposures/hazards: No pets and animals: [...] 1-2 times per week duration: 30-45 minutes/day parul/quaker: None seatbelt use: always do you feel safe at home: Yes 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 Date Name GA/Weeks Outcome Route Bth Weight Infant Gen Labor Lgth Anesthesia Del Locatn Provider FOB 04/14/21 [place] 41 live - full term 8#2oz Male epidur al [facility] GP Froilan Delivery Date: 04/14/21 Last [...] NIPT-very concerned about weight with this . [facility] anatomy order placed 10/22/24 -?-?-?-?-?-?-?-?-?-?-?-?- 14w 5d 312 lb 2 oz (+3 lb 2 oz) 119/76 Negative -?-?-?-?-?-?-?-?-?-?-?-?- Negative 168 -?-?-?-?-?-?-?-?-?-?-?-?- JV- nipt was inc onclusive. plan for afp between 17-21 weeks. anatomy scan with [facility]. 11/17/24 -?-?-?-?-?-?-?-?-?-?-?-?- 18w 3d 317 lb 8 [...] higinio MEDINA> Date _ Fiordaliza Zhong MD [facility] Signature: Date (if applicable) CC: ~ [facility]09-11-2025 Progress note [facility] Medical Records Department [address] [place] [address] OB Triage Progress Note 03/24/25 1004 MR#: [id number] Acct: [id number] Name: DEMETRIUS FERNANDES Rep #:[id number] : 1990 34 From: Fiordaliza moctezuma MD PCP: Dr. Delmar Luna MD Status :REG CLI Y DOS: Location: [place] [address] Progress Notes Date of Service: 03/24/25 Progress Note: Patient presents for triage evaluation secondary to polyhydramnios FHT: 135 Moderate variability reactive no decelerations category I tracing [place]: no regular Contractions Assessment and plan: 36 weeks severe polyhydramnios Reactive NST, reassuring maternal and status patient discharged to home to follow-up as scheduled. See problem list details for additional plan information. Charges/Coding Procedures Urinary/Genital 52xxx-59xxx: 99449-42 non-stress test Interp 03/24/25 Cleo sylvester MD> Date _ Fiordaliza Zhong MD Cosigner Signature (if applicable): Date CC: Dr. Delmar Luna MD; Dr. Fiordaliza Zhong MD ~ Signed [facility]09-08-2025 Progress [facility] [place] [facility] [address], [address] [place] [address] OFFICE VISIT Date of Service: 03/21/25 MR#: [id number] Acct: [id number] Name: DEMETRIUS FERNANDES Rep #: [id number] : 1990 Provider: Dr. Luther Zhong MD Age/Sex: 34/F Location: [facility] Status: Signed Intake Vital Signs 01/24/25 08:40 03/09/25 10:29 03/15/25 10:40 03/21/25 10:29 Height 5 ft 9 in 5 ft 9 in 5 ft 9 in 5 ft 9 in Weight: 342 lb 6 oz BMI 50.5 BP 127/72 H Intake Visit Reasons: 36 wk ob Sisal Operator Required: No Is patient in pain?: No [...] ea 03/07/25 03/21/25 Rx (FreeStyle Hardeep 2 Mack) lancets #200 ea 03/07/25 03/21/25 Rx Last [...] occupational status: employed and unemployed current occupation: [employer] current occupational exposures/hazards: No pets and animals: [...] 1-2 times per week duration: 30-45 minutes/day parul/quaker: None seatbelt use: always do you feel safe at home: Yes 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 Date Name GA/Weeks Outcome Route Bth Weight Gen Labor Lgth Anesthesia Del Locatn Provider FOB 04/14/21 [place] 41 live - full term 8#2oz Male epidur al [facility] GP Froilan Delivery Date: 04/14/21 Last Updated by: Simi Zarate 2nd degree laceration HPI 36 wk ob Details: DEMERTIUS FERNANDES is a 34 year old who [...] NIPT-very concerned about weight with this . [facility] anatomy order placed 10/22/24 -?-?-?-?-?-?-?-?-?-?-?-?- 14w 5d 312 lb 2 oz (+3 lb 2 oz) 119/76 Negative -?-?-?-?-?-?-?-?-?-?-?-?- Negative 168 -?-?-?-?-?-?-?-?-?-?-?-?- JV- nipt was inc onclusive. plan for afp between 17-21 weeks. anatomy scan with [facility]. 11/17/24 -?-?-?-?-?-?-?-?-?-?-?-?- 18w 3d 317 lb 8 [...] risk , unspecified, second trimester 03/21/25 1106 higinio MEDINA> Date _ Fiordaliza Zhong MD Cosign Signature: Date (if applicable) CC: ~ [facility]09-02-2025 Progress note [facility] Medical Records Department [address] [facility] [place] [place] [address] OB Triage Progress Note 03/15/25 1110 MR#: [id number] Acct: [id number] Name: DEMETRIUS FERNANDES Rep #:[id number] : 1990 34 From: Fiordaliza moctezuma MD PCP: Dr. Delmar Luna MD Status :REG CLI Y DOS: Location: [place] [address] Progress Notes Date of Service: 03/15/25 Progress Note: Patient presents for triage evaluation secondary to polyhydramnios FHT: 130-135 Moderate variability reactive no decelerations category I tracing [place]: no regular Contractions Assessment and plan: polyhydramnios 35 weeks Reactive NST, reassuring maternal and status patient discharged to home to follow-up as scheudled. See problem list details for additional plan information. Charges/Coding Procedures Urinary/Genital 52xxx-59xxx: 45885-42 non-stress test Interp Assessment & Plan (1) [...] higinio MEDINA> Date _ Fiordaliza Zhong MD [facility] Signature (if applicable): Date CC: Dr. Delmar Luna MD; Dr. Fiordaliza Zhong MD ~ Signed [facility]08-12-2025 Progress [facility] [address], [address] [place] [address] OFFICE VISIT Date of Service: 02/22/25 MR#: [id number] Acct: [id number] Name: DEMETRIUS FERNANDES Rep #: [id number] : 1990 Provider: ZACHARY Rich Age/Sex: 34/F Location: [facility] Status: Signed Intake Vital Signs 01/12/25 09:43 02/07/25 09:25 02/22/25 10:03 Height 5 ft 9 in 5 ft 9 in 5 ft 9 in Weight: 338 lb 1 oz BMI 49.9 BP 132/76 H Intake Visit Reasons: 32 wk ob Chief Complaint: 32 wk OB Sisal Operator Required: No Is patient in pain?: No [...] occupational status: employed and unemployed current occupation: [employer] current occupational exposures/hazards: No pets and animals: [...] 1-2 times per week duration: 30-45 minutes/day parul/quaker: None seatbelt use: always do you feel safe at home: Yes additional social history: - 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 Date Name GA/Weeks Outcome Route Bth Weight Infant Gen Labor Lgth Anesthesia Del Locatn Provider FOB 04/14/21 [place] 41 live - full term 8#2oz Male epidur al [facility] GP Froilan Delivery Date: 04/14/21 Last [...] and Symptoms of Preeclampsia, Feeding No , [place] Education and Family Medical Leave or Disability [...] Cosigner Signature: Date (if applicable) CC: ~ [facility]06-05-2025 Evaluation note* Diagnosis Onset Date Resolution Status [...] Supervision of high-risk acute March 21 10:17am [facility] Work Phone: 1(869) 342-437506-05-2025 Evaluation note* Diagnosis Onset Date Resolution Status [...] of high-risk acute March 24, 2025 10:17am [facility] Work Phone: 1(288) 658-349706-05-2025 Evaluation note* Diagnosis Onset Date Resolution Status [...] Pre-existing severe obesity in mother affecting acute [facility] 2024 5:47am acute March 5:47am Rh negative state in antepar caroline period acute March 28, 2025 5:47am Supervision of high-risk acute March 28, 2025 5:47am [facility] Work Phone: 1(855) 326-159106-05-2025 Progress [facility] [address] [place] [address], [address] [place] [address] OFFICE VISIT Date of Service: 12/16/24 MR#: [id number] Acct: [id number] Name: DEMETRIUS FERNANDES Rep #: [id number] : 1990 Provider: Dr. Luther Zhong MD Age/Sex: 34/F Location: [facility] Status: Signed Intake Vital Signs 09/23/24 09:08 [...] occupational status: employed and unemployed current occupation: [employer] current occupational exposures/hazards: No pets and animals: [...] 1-2 times per week duration: 30-45 minutes/day parul/quaker: None seatbelt use: always do you feel safe at home: Yes additional social history: - Froilan [employer] @ [facility] 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 Date Name GA/Weeks Outcome Route Bth Weight Infant Gen Labor Lgth Anesthesia Del Locatn Provider FOB 04/14/21 [place] 41 live - full term 8#2oz Male epidur al [facility] GP Froilan Delivery Date: 04/14/21 Last [...] Cosign Signature: Date (if applicable) CC: ~ [facility]05-07-2025 Evaluation note* Diagnosis Onset Date [...] Supervision of high-risk acute February 22 9:59am [facility] Work Phone: 1(361) 164-647605-07-2025 Evaluation note* Diagnosis Onset Date Resolution Status [...] Supervision of high-risk acute March 09 8:54am [facility] Work Phone: [phone]) 152-561205-07-2025 Evaluation note* Diagnosis Onset Date Resolution Status [...] Rh negative state in antepartum period acute [place] 27th, 2 025 8:54am Supervision of high-risk [...] Supervision of high-risk acute March 15, 10:20am [facility] Work Phone: 1(728) 337-503804-11-2025 Evaluation note* Diagnosis Onset Date Resolution Status [...] of high-risk acute January 24, 2025 8:22am [facility] Work Phone: 1(166) 999-282804-11-2025 Evaluation note* Diagnosis Onset Date Resolution Status [...] of high-risk acute February 07, 2025 9:17am [facility] Work Phone: 1(474) 889-803403-13-2025 NotePap Smear Specimen AdequacyMarch 2024 11:59pmComment.Satisfactory for evaluation. No endocervical component is identified.An endocervical component is not commonly seen in the patient.[facility] INTERFACED A#[id number] Private HospitalComment on above: Satisfactory for evaluation. No endocervical component is identified.An endocervical component is not commonly seen in the patient.09-23-2024 NotePap Smear Specimen AdequacyMar 2024 11:59pmComment.Satisfactory for evaluation. No endocervical component is identified.An endocervical component is not commonly seen in the patient.[facility] INTERFACED A#[id number] Hardin Memorial HospitalComment on above:Satisfactory for evaluation. No endocervical [...] of high-risk acute September 23, 2024 8:56am [facility] Work Phone: 1(562) 912-801203-13-2025 Evaluation note* Diagnosis Onset Date Resolution Status [...] high-risk acute November 17, 2024 8: 37am [facility] Work Phone: 1([phone]) 902-493803-13-2025 Evaluation note* Diagnosis Onset Date Resolution Status [...] high-risk acute December 16, 2024 9 :02am [facility] Work Phone: Evaluation noteNo assessment information available [facility] Work Phone: Hospital Discharge instructionsAdditional Instructions Scheduled non-stress tests in WP: Friday, Mar.16 9am Friday, 9am[facility] Work Phone: Progress note Author Fiordaliza Zhong [facility] Note Date/Time December 16, 2024 9:30a m [facility] [place] [facility] [address] [place] [address], [address] [place] [address] OFFICE VISIT Date of Service: 12/16/24 MR#: [id number] Acct: [id number] Name: DEMETRIUS FERNANDES Rep #: [id number] : 1990 Provider: Dr. Luther Zhong MD Age/Sex: 34/F Location: [facility] Status: Signed Intake Vital Signs 09/23/24 09:08 [...] occupational status: employed and unemployed current occupation: [employer] current occupational exposures/hazards: No pets and animals: [...] 1-2 times per week duration: 30-45 minutes/day parul/quaker: None seatbelt use: always do you feel safe at home: Yes additional social history: - 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 Date Name GA/Weeks Outcome Route Bth Weight Gen Labor Lgth Anesthesia Del Locatn Provider FOB 04/14/21 [place] 41 live - full term 8#2oz Male epidur al [facility] GP Froilan Delivery Date: 04/14/21 Last [...] Symptoms of Preeclampsia, Infant Feeding No , [place] Education and Family Medical Leave or Disability [...] Cosigner Signature: Date (if applicable) CC: ~ [facility] Work Phone: Progress note Author Greg Layla [facility] Note Date/Time February 22, 2025 10 :18am [facility] [place] [address] [place] [address], [address] [place] [address] OFFICE VISIT Date of Service: 02/22/25 MR#: [id number] Acct: [id number] Name: DEMETRIUS FERNANDES Rep #: [id number] : 1990 Provider: ZACHARY Rich Age/Sex: 34/F Location: [facility] Status: Signed Intake Vital Signs 01/12/25 09:43 02/07/25 09:25 02/22/25 10:03 Height 5 ft 9 in 5 ft 9 in 5 ft 9 in Weight: 338 lb 1 oz BMI 49.9 BP 132/76 H Intake Visit Reasons: 32 wk ob Chief Complaint: 32 wk OB Sisal Operator Required: No Is patient in pain?: No [...] occupational status: employed and unemployed 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 Date Name GA/Weeks Outcome Route Bth Weight Infant Gen Labor Lgth Anesthesia Del [facility] Provider FOB 04/14/21 [place] 41 live - full term 8#2oz Male epidur al [facility] GP Froilan Delivery Date: 04/14/21 Last [...] NIPT-very concerned about weight with this . [facility] anatomy order placed 10/22/24 -?-?-?-?-?-?-?-?-?-?-?-?- 14w 5d [...] Cosigner Signature: Date (if applicable) CC: ~ [facility] Work Phone: Progress note Author Fiordaliza Zhong [facility] Note Date/Time March 15, 2025 11:12am [facility] Medical Records Department [address] [place] [address] OB Triage Progress Note 03/15/25 1110 MR#: [id number] Acct: [id number] Name: DEMETRIUS FERNANDES Rep #:[id number] : 1990 34 From: Fiordaliza moctezuma MD PCP: Dr. Delmar Luan MD Status :REG CLI Y DOS: Location: [place] [address] Progress Notes Date of Service: 03/15/25 Progress Note: Patient presents for triage evaluation secondary to polyhydramnios FHT: 130-135 Moderate variability reactive no decelerations category I tracing [place]: no regular Contractions Assessment and plan: polyhydramnios 35 weeks Reactive NST, reassuring maternal and status patient discharged to home to follow-up as scheudled. See problem list details for additional plan information. Charges/Coding Procedures Urinary/Genital 52xxx-59xxx: 29312-00 non-stress test Interp Assessment & Plan (1) [...] MD; Dr. Fiordaliza Zhong MD ~ Signed [facility] Work Phone: Progress note Author Fiordaliza Zhong [facility] Note Date/Time March 21, 2025 11:06am [facility] [address] [place] [address], [address] [place] [address] OFFICE VISIT Date of Service: 03/21/25 MR#: [id number] Acct: [id number] Name: DEMETRIUS FERNANDES Rep #: [id number] : 1990 Provider: Dr. Luther Zhong MD Age/Sex: 34/F Location: [facility] Status: Signed Intake Vital Signs 01/24/25 08:40 03/09/25 10:29 03/15/25 10:40 03/21/25 10:29 Height 5 ft 9 in 5 ft 9 in 5 ft 9 in 5 ft 9 in Weight: 342 lb 6 oz BMI 50.5 BP 127/72 H Intake Visit Reasons: 36 wk ob Sisal Operator Required: No Is patient in pain?: No [...] ea 03/07/25 03/21/25 Rx (FreeStyle Hardeep 2 Mack) lancets #200 ea 03/07/25 03/21/25 Rx Last [...] occupational status: employed and unemployed current occupation: [employer] current occupational exposures/hazards: No pets and animals: [...] 1-2 times per week duration: 30-45 minutes/day parul/quaker: None seatbelt use: always do you feel safe at home: Yes additional social history: - Froilan GUARDADON @ [employer] [facility] [employer] 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 Date Name GA/Weeks Outcome Route Bth Weight Infant Gen Labor Lgth Anesthesia Del [facility] Provider FOB 04/14/21 [place] 41 live - full term 8#2oz Male epidur al [facility] GP Froilan Delivery Date: 04/14/21 Last [...] NIPT-very concerned about weight with this . [facility] anatomy order placed 10/22/24 -?-?-?-?-?-?-?-?-?-?-?-?- 14w 5d [...] Cosigner Signature: Date (if applicable) CC: ~ [facility] Work Phone: Progress note Author Fiordaliza Zhong [facility] Note Date/Time March 24, 2025 10:05am [facility] Medical Records Department [address] [place] [address] OB Triage Progress Note 03/24/25 1004 MR#: [id number] Acct: [id number] Name: DEMETRIUS FERNANDES Rep #:[id number] : 1990 34 From: Fiordaliza moctezuma MD PCP: Dr. Delmar Luna MD Status :REG CLI Y DOS: Location: [place] [id number] Progress Notes Date of Service: 03/24/25 Progress Note: Patient presents for triage evaluation secondary to polyhydramnios FHT: 135 Moderate variability reactive no decelerations category I tracing [place]: no regular Contractions Assessment and plan: 36 weeks severe polyhydramnios Reactive NST, reassuring maternal and status patient discharged to home to follow-up as scheduled. See problem list details for additional plan information. Charges/Coding Procedures Urinary/Genital 52xxx-59xxx: 45434-95 non-stress test Interp 03/24/25 1005 <Electronically signed by Fiordaliza sylvester MD> Date _ Fiordaliza Zhong MD Cosigner Signature (if applicable): Date CC: Dr. Delmar Luna MD; Dr. Fiordaliza Zhong MD ~ Signed [facility] Work Phone: Progress note Author Fiordaliza Zhong [facility] Note Date/Time March 24, 2025 11:11am [facility] [place] [address] [place] [address], [address] [place] [address] OFFICE VISIT Date of Service: 03/24/25 MR#: [id number] Acct: [id number] Name: DEMETRIUS FERNANDES Rep #: [id number] : 1990 Provider: Dr. Luther Zhong MD Age/Sex: 34/F Location: 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 [facility] anatomy order placed 10/22/24 -?-?-?-?-?-?-?-?-?-?-?-?- 14w 5d 312 lb 2 oz (+3 lb 2 oz) 119/76 Negative -?-?-?-?-?-?-?-?-?-?-?-?- Negative 168 -?-?-?-?-?-?-?-?-?-?-?-?- JV- nipt was inc onclusive. plan for afp between 17-21 weeks. anatomy scan with [facility]. 11/17/24 -?-?-?-?-?-?-?-?-?-?-?-?- 18w 3d 317 lb 8 [...] Symptoms of Preeclampsia, Infant Feeding No , [place] Education and Family Medical Leave or Disability [...] sylvester MD> Date _ Fiordaliza Zhong MD [facility] Signature: Date (if applicable) CC: ~ [facility] [facility] Work Phone: Reason for referral (narrative)No reason for referral information availableWFort Hamilton Hospital Work Phone: Chief Complaint and Reason [...] 6am Rh negative state in antepartum period [facility] 2024 8:56am Spider veins of both lower extremities [facility] 2024 8:56am Supervision of high-risk September 23, [...] 172024 8:37am Former smoker, stopped smoking in Predectan t past November 17, 2024 8:37am Spider veins of both lower extremities M ay 2024 8:37am Advanced maternal age (AMA) in December 16, 2024 9:02am Pre-existing severe obesity in mother af fecting December 16, 2024 9:02am December 16, 2024 9:02a m Rh negative state in antepartum period J [facility] 2024 9:02am Supervision of high-risk [...] Rh negative state in antepartum period J [facility] 2024 8:22am Supervision of high-risk January [...] state in antepartum period J [facility] 2024 9:02am Supervision of high-risk [...] Rh negative state in antepartum period J [facility] 2024 9:17am Supervision of high-risk February [...] state in antepartum period J [facility] 2024 9:02am Supervision of high-risk December 16, 2024 9:02am Advanced maternal age (AMA) in January 12, 2025 9:40am Pre-existing severe obesity in mother af fecting January 12, 2025 9:40am January 12, 2025 9:40a m Rh negative state in antepartum period J [facility] 2024 9:40am Supervision of high-risk January 12, 2025 9:40am Advanced maternal age (AMA) in January 24, 2025 8:22am Pre-existing severe obesity in mother af fecting January 24, 2025 8:22am January 24, 2025 8:22 am Rh negative state in antepartum period J [facility] 2024 8:22am Supervision of high-risk January [...] state in antepartum period J [facility] 2024 9:02am Supervision of high-risk [...] state in antepartum period J [facility] 2024 9:02am Supervision of high-risk [...] Rh negative state in antepartum period J [facility] 2024 8:22am Supervision of high-risk January 24, 2025 8:22am Abnormal glucose affecting Axel 2024 9:17am Advanced maternal age (AMA) in February 07, 2025 9:17am Pre-existing severe obesity in mother af fecting February 07, 2025 9:17am February 07, 2025 9:17 am Rh negative state in antepartum period J [facility] 2024 9:17am Supervision of high-risk February [...] Rh negative state in antepartum period A [facility] 2024 8:54am Supervision of high-risk Augus t [...] Rh negative state in antepartum period A [facility] 2024 10:00am Supervision of high-risk Augus t 2024 10:00am Breech presentation March 15, 2025 10:20am Macrosomia affecting management of mothe r, antepartum March 15, 2025 10:20am Polyhydramnios affecting Septe [facility] 2024 10:20am March 15, 2025 10:20am Supervision of high-risk Septe [facility] 2024 10:20am Chief Complaint Admit Date [...] state in antepartum period J [facility] 2024 9:02am Supervision of high-risk [...] Rh negative state in antepartum period J [facility] 2024 8:22am Supervision of high-risk January [...] Rh negative state in antepartum period A [facility] 2024 8:54am Supervision of high-risk Augus t [...] Rh negative state in antepartum period A [facility] 2024 10:00am Supervision of high-risk Augus 2024 10:00am Breech presentation March 15, 2025 10:20am Macrosomia affecting management of mothe r, antepartum March 15, 2025 10:20am Polyhydramnios affecting Septe [facility] 2024 10:20am March 15, 2025 10:20am Supervision of high-risk Septe [facility] 2024 10:20am Abnormal glucose affecting Sep tem2024 [...] eptember 2024 10:17am Supervision of high-risk Septe [facility] 2024 10:17am Chief Complaint Admit Date 22wk [...] 2025 10:04am 37wk ob before csection *per [facility] r 2024 10:17am Reason for Visit Admit Date Advanced maternal age (AMA) in December 16, 2024 9:02am Pre-existing severe obesity in mother affecting December 16, 2024 9:02am December 16, 2024 9:02a m Rh negative state in antepartum period J [facility] 2024 9:02am Supervision of high-risk December 16, 2024 9:02am Advanced maternal age (AMA) in January 12, 2025 9:40am Pre-existing severe obesity in mother affecting January 12, 2025 9:40am January 12, 2025 9:40a m Rh negative state in antepartum period J [facility] 2024 9:40am Supervision of high-risk January [...] Rh negative state in antepartum period A [facility] 2024 9:59am Supervision of high-risk Augus t [...] Rh negative state in antepartum period A [facility] 2024 8:54am Supervision of high-risk Augus t [...] Rh negative state in antepartum period A [facility] 2024 10:00am Supervision of high-risk Augus t 2024 10:00am Breech presentation March 15, 2025 10:20am Macrosomia affecting management of mothe r, antepartum March 15, 2025 10:20am Polyhydramnios affecting Septe mb2024 10:20am March 15, 2025 10:20am Supervision of high-risk [facility] 2024 10:20am Abnormal glucose affecting [facility]2024 10:17am Advanced maternal age (AMA) in March 21, 2025 10:17am Breech presentation March 21, 2025 10:17am Macrosomia affecting management of mothe r, antepartum March 21, 2025 10:17am Polyhydramnios affecting [facility] 2024 10:17am Pre-existing severe obesity in mother affecting March 21, 2025 10:17am March 21, 2025 10:17am Rh negative state in antepartum period [facility]20[facility] 10:17am Supervision of high-risk [facility] 2024 10:17am Abnormal glucose affecting [facility] 2024 10:17am Advanced maternal age (AMA) in March 24, 2025 10:17am Breech presentation March 24, 2025 10:17am Macrosomia affecting management of mothe r, antepartum March 24, 2025 10:17am Polyhydramnios affecting [facility] 2024 10:17am Pre-existing severe obesity in mother affecting March 24, 2025 10:17am March 24, 2025 10:17am Rh negative state in antepartum [facility] 10:17am Supervision of high-risk [facility] 2024 10:17am Chief Complaint Admit Date [...] m Rh negative state in antepartum period [facility] 2024 9:02am Supervision of high-risk December 16, 2024 9:02am Advanced maternal age (AMA) in January 12, 2025 9:40am Pre-existing severe obesity in mother affecting January 12, 2025 9:40am January 12, 2025 9:40a m Rh negative state in antepartum period [facility] 2024 9:40am Supervision of high-risk January 12, 2025 9:40am Advanced maternal age (AMA) in January 24, 2025 8:22am Pre-existing severe obesity in mother affecting January 24, 2025 8:22am January 24, 2025 8:22 am Rh negative state in antepartum period [facility] 2024 8:22am Supervision of high-risk January 24, 2025 8:22am Abnormal glucose affecting Jan 9:17am Advanced maternal age (AMA) in February 07, 2025 9:17am Pre-existing severe obesity in mother affecting February 07, 2025 9:17am February 07, 2025 9:17 am Rh negative state in antepartum period [facility] 2024 9:17am Supervision of high-risk February 07, 2025 9:17am Abnormal glucose affecting Aug us2024 9:59am Advanced maternal age (AMA) in February 22, 2025 9:59am Pre-existing severe obesity in mother affecting February 22, 2025 9:59am February 22, 2025 9: 59am Rh negative state in antepartum period A [facility] 2024 9:59am Supervision of high-risk Augus 2024 [...] Rh negative state in antepartum period A [facility] 2024 8:54am Supervision of high-risk Augus 2024 [...] Rh negative state in antepartum period A [facility] 2024 10:00am Supervision of high-risk Augus t [...] antepartum March 21, 2025 10:17am Polyhydramnios affecting [facility] 2024 10:17am Pre-existing severe obesity in mother affecting March 21, 2025 10:17am March 21, 2025 10:17am Rh negative state in antepartum period S [facility] 2024 10:17am Supervision of high-risk [facility] 2024 10:17am Abnormal glucose affecting [facility] 2024 10:17am Advanced maternal age (AMA) in March 24, 2025 10:17am Breech presentation March 24, 2025 10:17am Macrosomia affecting management of mothe r, antepartum March 24, 2025 10:17am Polyhydramnios affecting [facility] 2024 10:17am Pre-existing severe obesity in mother affecting March 24, 2025 10:17am March 24, 2025 10:17am Rh negative state in antepartum period S [facility] 2024 10:17am Supervision of high-risk [facility] 2024 10:17am Abnormal glucose affecting Sep [facility] 2024 5:47am Advanced maternal age (AMA) in March 28, 2025 5:47am Breech presentation March 28, 2025 5:47am delivery delivered March 282024 5:47am Macrosomia affecting management of mothe r, antepartum March 28, 2025 5:47am Polyhydramnios affecting [facility] 2024 5:47am Pre-existing severe obesity in mother affecting March 28, 2025 5:47am March 28, 2025 5:47am Rh negative state in antepartum period S [facility] 2024 5:47am Supervision of high-risk [facility] 2024 5:47am Family History No Family History [...] Will No April 13 8:08pm Power of Wall Taper Helper No April 13 021 8:08pm Advance Directive Response Recorded Date/ Time Do you have a Healthcare Power of Wall Taper Helper? No March 28, 2025 6:18am Summary Purpose [...] Inactive Member Role Status Dates Erick Rodriguez PRODUCTION TRAINER, PRODUCTION TRAINER-C Attending Provider Active Start: November 17, 2024 End: November 17, 2024 Team Status: Inactive Member Role Status Dates Erick Rodriguez PRODUCTION TRAINER, PRODUCTION TRAINER-C Attending Provider Active Start: November 17, 2024 End: November 17, 2024 Erick Rodriguez PRODUCTION TRAINER, PRODUCTION TRAINER-C Referring Provider Active Start: November 17, 2024 [...] Inactive Member Role/Relationship Status Dates Erick Rodriguez PRODUCTION TRAINER, PRODUCTION TRAINER-C Attending Provider Active Start: November 17, 2024 End: November 17, 2024 Team Status: Inactive Member Role/Relationship Status Dates Erick Rodriguez PRODUCTION TRAINER, PRODUCTION TRAINER-C Attending Provider Active Start: November 17, 2024 End: November 17, 2024 Erick Rodriguez PRODUCTION TRAINER, PRODUCTION TRAINER-C Referring Provider Active Start: November 17, 2024 End: November 17, 2024 Team Status: Inactive Member Role/Relationship Status Dates Dr. Fiordaliza Zhong MD Attending Provider Active Start: December 16, 2024 End: December 16, 2024 Team Status: Inactive Member Role/Relationship Status Dates Erick Rodriguez PRODUCTION TRAINER, PRODUCTION TRAINER-C Attending Provider Active Start: January 12, 2025 [...] Inactive Member Role/Relationship Status Dates Erick Rodriguez PRODUCTION TRAINER, PRODUCTION TRAINER-C Attending Provider Active Start: November 17, 2024 End: November 17, 2024 Team Status: Inactive Member Role/Relationship Status Dates Erick Rodriguez PRODUCTION TRAINER, PRODUCTION TRAINER-C Attending Provider Active Start: November 17, 2024 End: November 17, 2024 Erick Brooks PRODUCTION TRAINER, PRODUCTION TRAINER-C Referring Provider Active Start: November 17, 2024 End: November 17, 2024 Team Status: Inactive Member Role/Relationship Status Dates Dr. Fiordaliza Zhong MD Attending Provider Active Start: December 16, 2024 End: December 16, 2024 Team Status: Inactive Member Role/Relationship Status Dates Erick Sidney PRODUCTION TRAINER, PRODUCTION TRAINER-C Attending Provider Active Start: January 12, 2025 End: January 12, 2025 Team Status: Inactive Member Role/Relationship Status Dates Erick Brooks PRODUCTION TRAINER, PRODUCTION TRAINER-C Attending Provider Active Start: January 24, 2025 End: January 24, 2025 Team Status: Active Member Role/Relationship Status Dates Erick Rodriguez PRODUCTION TRAINER, PRODUCTION TRAINER-C Attending Provider Active Start: January 24, 2025 [...] Inactive Member Role/Relationship Status Dates Erick Rodriguez PRODUCTION TRAINER, PRODUCTION TRAINER-C Attending Provider Active Start: November 17, 2024 End: November 17, 2024 Team Status: Inactive Member Role/Relationship Status Dates Erick Sidney PRODUCTION TRAINER, PRODUCTION TRAINER-C Attending Provider Active Start: November 17, 2024 End: November 17, 2024 Erick Brooks PRODUCTION TRAINER, PRODUCTION TRAINER-C Referring Provider Active Start: November 17, 2024 End: November 17, 2024 Team Status: Inactive Member Role/Relationship Status Dates Dr. Fiordaliza Zhong MD Attending Provider Active Start: December 16, 2024 End: December 16, 2024 Team Status: Inactive Member Role/Relationship Status Dates Erick oRdriguez PRODUCTION TRAINER, PRODUCTION TRAINER-C Attending Provider Active Start: January 12, 2025 End: January 12, 2025 Team Status: Inactive Member Role/Relationship Status Dates Erick Brooks PRODUCTION TRAINER, PRODUCTION TRAINER-C Attending Provider Active Start: January 24, 2025 End: January 24, 2025 Team Status: Inactive Member Role/Relationship Status Dates Erick Arguetas PRODUCTION TRAINER, PRODUCTION TRAINER-C Attending Provider Active Start: January 24, 2025 End: January 24, 2025 Team Status: Active Member Role/Relationship Status Dates Erick Rodriguez PRODUCTION TRAINER, PRODUCTION TRAINER-C Attending Provider Active Start: January 25, 2025 Erick Rodriguez PRODUCTION TRAINER, PRODUCTION TRAINER-C Referring Provider Active Start: January 25, 2025 Dr. Delmar Luna MD Primary Care Provider Acti ve Start: January 25, 2025 Team Status: Inactive Member Role/Relationship Status Dates Erick Arguetas PRODUCTION TRAINER, PRODUCTION TRAINER-C Attending Provider Active Start: January 25, 2025 End: January 25, 2025 Erick Arguetas PRODUCTION TRAINER, PRODUCTION TRAINER-C Referring Provider Active Start: January 25, 2025 End: January 25, 2025 Dr. Delmar Luna MD Primary Care Provider Acti ve Start: January 25, 2025 End: January 25, 2025 Team Status: Inactive Member Role/Relationship Status Dates Erick Rodriguez PRODUCTION TRAINER, PRODUCTION TRAINER-C Attending Provider Active Start: January 25, 2025 End: January 25, 2025 Erick Rodriguez PRODUCTION TRAINER, PRODUCTION TRAINER-C Referring Provider Active Start: January 25, 2025 [...] Inactive Member Role/Relationship Status Dates Erick Brooks PRODUCTION TRAINER, PRODUCTION TRAINER-C Attending Provider Active Start: November 17, 2024 End: November 17, 2024 Team Status: Inactive Member Role/Relationship Status Dates Erick Brooks PRODUCTION TRAINER, PRODUCTION TRAINER-C Attending Provider Active Start: November 17, 2024 End: November 17, 2024 Erick Brooks PRODUCTION TRAINER, PRODUCTION TRAINER-C Referring Provider Active Start: November 17, 2024 End: November 17, 2024 Team Status: Inactive Member Role/Relationship Status Dates Dr. Fiordaliza Zhong MD Attending Provider Active Start: December 16, 2024 End: December 16, 2024 Team Status: Inactive Member Role/Relationship Status Dates Erick Sidney PRODUCTION TRAINER, PRODUCTION TRAINER-C Attending Provider Active Start: January 12, 2025 End: January 12, 2025 Team Status: Inactive Member Role/Relationship Status Dates Erick Brooks PRODUCTION TRAINER, PRODUCTION TRAINER-C Attending Provider Active Start: January 24, 2025 End: January 24, 2025 Team Status: Inactive Member Role/Relationship Status Dates Erick Sidney PRODUCTION TRAINER, PRODUCTION TRAINER-C Attending Provider Active Start: January 25, 2025 End: January 25, 2025 Erick Brooks PRODUCTION TRAINER, PRODUCTION TRAINER-C Referring Provider Active Start: January 25, 2025 [...] Inactive Member Role/Relationship Status Dates Erick Rodriguez PRODUCTION TRAINER, PRODUCTION TRAINER-C Attending Provider Active Start: January 12, 2025 End: January 12, 2025 Team Status: Inactive Member Role/Relationship Status Dates Erick Rodriguez PRODUCTION TRAINER, PRODUCTION TRAINER-C Attending Provider Active Start: January 24, 2025 End: January 24, 2025 Team Status: Inactive Member Role/Relationship Status Dates Erick Arguetas PRODUCTION TRAINER, PRODUCTION TRAINER-C Attending Provider Active Start: January 24, 2025 End: January 24, 2025 Team Status: Inactive Member Role/Relationship Status Dates Erick Arguetas PRODUCTION TRAINER, PRODUCTION TRAINER-C Attending Provider Active Start: January 25, 2025 End: January 25, 2025 Erick Rodriguez PRODUCTION TRAINER, PRODUCTION TRAINER-C Referring Provider Active Start: January 25, 2025 [...] Inactive Member Role/Relationship Status Dates Erick Rodriguez PRODUCTION TRAINER, PRODUCTION TRAINER-C Attending physician Active Start: January 12, 2025 End: January 12, 2025 Team Status: Inactive Member Role/Relationship Status Dates Erick Sidney PRODUCTION TRAINER, PRODUCTION TRAINER-C Attending physician Active Start: January 24, 2025 End: January 24, 2025 Team Status: Inactive Member Role/Relationship Status Dates Erick Arguetas PRODUCTION TRAINER, PRODUCTION TRAINER-C Attending physician Active Start: January 24, 2025 End: January 24, 2025 Team Status: Inactive Member Role/Relationship Status Dates Erick Arguetas PRODUCTION TRAINER, PRODUCTION TRAINER-C Attending physician Active Start: January 25, 2025 End: January 25, 2025 Erick Rodriguez PRODUCTION TRAINER, PRODUCTION TRAINER-C Referring Provider Active Start: January 25, 2025 [...] Delmar Luna MD Primary care physician Act macairo Start: March 24, 2025 End: March 24, [...] Delmar Luna MD Primary care physician Act macaroi Start: March 29, 2025 Dr. Fiordaliza Zhong [...] section and content) DATE CREATED AUTHOR 03/22/2025 [facility] DATE CREATED AUTHOR AUTHOR'S ORGANIZ ATION 04/06/2025 [facility] FOR RECORDS PERTAINING TO PATIENTS [...] BE BASED ON THE PRIMARY CLINICAL RECORDS. [facility]. provides no warranty or guarantee of the accuracy or completeness of information in this document.
--- OUTSIDE RECORDS SUMMARY | 2025-04-07 21:47 | XMS RPT_ITS | CCD ---
Author Organization [facility] Care Team Providers Care It Auditor Name Role Phone Greg Rich CNM Attending Provider [phone] Greg Rich CNM Referring Provider [phone] Dr. Aye Dey DO Attending Provider Dr. Aye Dey DO Referring Provider Neche MEDICAL BILLING INSTRUCTOR-C, Erick Attending Provider [phone] Neche MEDICAL BILLING INSTRUCTOR-C, Erick Referring Provider [phone] Dr. Fiordaliza Zhong MD Attending Provider Dr. Delmar Luna MD Primary Care Provider Dr. Aye Dey DO Attending Provider Dr. Delmar Luna MD Referring Provider [phone] Dr. Aye Dey DO Attending Provider Greg Rich CNM Attending Provider [phone] Dr. Aye Dey DO Referring Provider Dr. Aye Dey DO Other Provider [phone] Dr. Fiordaliza Zhong MD Referring Provider Dr. Fiordaliza Zhong MD Other Provider [phone] Brooks MEDICAL BILLING INSTRUCTOR-C, Erick Attending Provider Neche MEDICAL BILLING INSTRUCTOR-C, Erick Referring Provider REFERRED, SELF Referring Unavailable AYE RUVALCABA Attending Unavailable DELMAR LUNA Primary Care Unavailabl e RANNEY, CHRISTOPHER B Primary Care Unavailabl FIORDALIZA Christie Referring Unavailabl e LUCY ALVES Attending Unavailable [place], RUSTOPHER B Primary Care Unavailabl e FRANKY BADILLO Attending Unavailable REFERRED, SELF Referring Unavailable AYE RUVALCABA Attending Unavailable [place] Primary Care Unavailabl e REFERRED, SELF Referring Unavailable GREG RICH Referring Unavailable [place], CHRISTOPHER B Primary Care Unavailabl e FRANKY BADILLO Attending Unavailable GREG RICH S Referring Unavailable FRANKY BADILLO Attending Unavailable [place] Primary Care Unavailsammi e COSTA CERRATO Attending Unavailable NO PRIMARY CARE, Primary Care Unavailable ERICK RODRIGUEZ S Referring Unavailable GREG RICH Referring Unavailable COSTA CERRATO Attending Unavailable NO PRIMARY CARE, Primary Care Unavailable Farheen MEDINA, Dr. Mancera Attending Physician Brooks MEDICAL BILLING INSTRUCTOR-CErick Attending Physician [phone] Cheryl MEDINA, Dr. Mendoza Primary Care Physicia n Sola Mcdowell DO, Dr. Griffiths Attending Physician Greg Rich CNM Attending Physician [phone] Dr. Aye Dey DO Nurse Practitioner Farheen MEDINA, Dr. Mancera Nurse Practitioner Farheen MEDINA, Dr. Mancera Admitting Physician Greg Rich Attending Unavailable Greg Rich Referring Unavailable Erick Rodriguez Attending Unavailable Erick Rodriguez Referring Unavailable Ranney, Christopher Referring Unavailable [place], [facility] Primary Care Unavailable Aye Dey Attending UnavailFiordaliza Gaxiola Attending Unavailable Fiordaliza Zhong Referring Unavailable [place], [facility] Primary Care Unavailable Fiordaliza Zhong Consulting Unavailable [place], [facility] Primary Care Unavailable iFordaliza Zhong Attending Unavailable Fiordaliza Zhong Admitting Unavailable Ranney, Christopher Referring Unavailable Ranney, Christopher Primary Care Unavailable Eva Conroy Attending Unavailable Ranney, Christopher Primary Care Unavailable Ranney, Christopher Referring Unavailable Fiordaliza Zhong Attending Unavailable Erick Rodriguez Attending Unavailable BrooksErick Attending Unavailable Greg Rich Attending Unavailable DiegoonyFiordaliza Referring Unavailable MarcanthonyFiordaliza Consulting Unavailable [facility] Care Unavailable MarcanthonyFiordaliza Attending Unavailable MarcanthonyFiordaliza Admitting Unavailable MarcanthonyFiordaliza Consulting Unavailable [facility] Care Unavailable MarcanthonyFiordaliza Attending Unavailable [facility] [place] Referring Unavailable [facility] Care Unavailable MarcanthonyFiordaliza Attending Unavailable [facility] [place] Referring Unavailable [facility] Primary Care Unavailable BrooksErick Attending Unavailable [facility] Care Unavailable Vande Velde, Aye Referring Unavailabl e Vande Velde, Aye Consulting Unavailabl e Vande Velde, Aye Attending Unavailabl e Marcanthony, Fiordaliza Attending Unavailable MarcanthonyFiordaliza Referring Unavailable [facility] Care Unavailable DiegoonyFiordaliza Consulting Unavailable Erick Rodriguez Attending Unavailable MjanthonyFiordaliza Referring Unavailable [facility] Care Unavailable Fiordaliza Zhong Attending Unavailable Vande Velde, Aey Attending Unavailabl e Vande Velde, Aye Referring Unavailabl e MarcanthonyFiordaliza Referring Unavailable [facility] Care Unavailable Fiordaliza Zhong Attending Unavailable [facility] [place] Referring Unavailable [facility] Care Unavailable Fiordaliza Zhong Attending Unavailable Vande Velde, Aye Attending Unavailabl e BrooksErick pollack Attending Unavailable MarcanthonyFiordaliza Attending Unavailable Greg Rich Attending Unavailable [facility] Referring Unavailable [facility] Primary Care Unavailable Vande Velde, Aye Attending Unavailabl e [facility] Care Unavailable BrooksErick Referring Unavailable BrooksErick Attending Unavailable [facility] Referring Unavailable [facility] Care Unavailable Greg Rich Attending Unavailable Fiordaliza Zhong Admitting Unavailable [facility] Care Unavailable Fiordaliza Zhong Attending Unavailable [facility] Primary Care Unavailable Vande Velde, Aye Referring [...] by mouth once daily Flash Glucose Scanning [place] (Pairystyle Hardeep 2 [place]) misc (7 sources) Start: 03-07-2025 Flash Glucose Scanning [place] (Freestyle Hardeep 2 [place]) misc Active 0 .ROUTE .MEDSUPPLY 1 0 March 07, 2025 12:00am As directed isopropyl alcohol 0.7 ml/ml medicated pad (1 source) Start: 03-07-2025 Multivit 84-Gpgc-Zhaiqz 1-Dha (Pnv-Dha) 27 mg iron-1 mg -300 [...] 1:00am Start: 08-29-2020 take 1 capsule by [facility] once daily Multivit 93-Mczq-Sftceg 1-Dha (Pnv-Dha) 27 mg iron-1 mg -300 [...] unspecified trimester] 09-24-2024 Chronic Comment on above: [id number] nl 1 tm hga1c. recom mend weekly [...] PRR, , MEET 04/17, boy [facility] [place], [place] Other complications of (20 sources) Advanced [...] on above: GP IOL LT 04/14 [facility] elects NIPT with gen radha, insufficient DNA, [...] Value Interpretation Reference Range Facility MR/BMS[facility] [address] [place] [id number] OFFICE VISIT Date of Service: 03/31/25 MR#: [id number] Acct: [id number] Name: DEMETRIUS FERNANDES Rep #: [id number] : 1990 Provider: MARY JANE zuleta Age/Sex: 34/F Location: [place] Status: Signed Intake Vital Signs 03/28/25 05:40 03/31/25 15:17 Height 5 ft 9 in 5 ft 9 in Intake Visit Reasons: feeding assessment Allergies No Known Allergies Allergy (Verified 03/28/25 05:58) 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 Date Name GA/Weeks Outcome Route Bth Weight Infant Gen Labor Lgth Anesthesia Del Locatn Provider FOB 04/14/21 [place] 41 live - full term 8#2oz Male epidural [facility] GP [place] 03/28/25 Agustín 37 live - full term 8lbs 1oz Male spinal [facility] Delivery Date: 04/14/21 Last Updated by: [...] ameda pump (more content not included)... Normal [facility] Bedside Glucoseon 03-29-2025 FINGERSTICK GLU 77 mg/dL Normal 74-106 [facility] Comment on above: Result Comment: JOAQUIM SEPULVEDA OF PATIENT CARE PER NURSING PROTOCOL Performed By: #### L 501.080 #### [facility] [address] [place], [address] CBC-Complete Blood Cnt No Di ffon 03-29-2025 Erythrocyte distribution width (RBC) [Ratio] 15.5 % High 11.6-14.6 [facility] Comment on above: Order Comment: Comme nts: Day #1 Reason for Laboratory Test Performed By: #### L 100.0500 #### [facility] [address] [place], [address] Hematocrit (Bld) [Volume fraction] 30.4 % Low 37-47 [facility] Comment on above: Order Comment: Comme nts: Day #1 Reason for Laboratory Test Performed By: #### L 100.0500 #### [facility] [address] [place], [address] Hemoglobin (Bld) [Mass/Vol] 9.9 g/dL Low 12.0-15.0 [facility] Comment on above: Order Comment: Comme nts: Day #1 Reason for Laboratory Test Performed By: #### L 100.0500 #### [facility] [address] [place], [address] MCH (RBC) [Entitic mass] 27.2 pg Normal 27.0-32.0 [facility] Comment on above: Order Comment: Comme nts: Day #1 Reason for Laboratory Test Performed By: #### L 100.0500 #### [facility] [address] [place], [address] MCHC (RBC) [Mass/Vol] 32.6 g/dL Normal 32-36 [facility] Comment on above: Order Comment: Comme nts: Day #1 Reason for Laboratory Test Performed By: #### L 100.0500 #### [facility] [address] [place], [address] MCV (RBC) [Entitic vol] 83.5 fL Normal 81-99 [facility] Comment on above: Order Comment: Comme nts: Day #1 Reason for Laboratory Test Performed By: #### L 100.0500 #### [facility] [address] [place], [address] Platelet mean volume (Bld) [Entitic vol] 10.6 fL Normal 6.2-12.0 [facility] Comment on above: Order Comment: Comme nts: Day #1 Reason for Laboratory Test Performed By: #### L 100.0500 #### [facility] [address] [place], [address] Platelets (Bld) [#/Vol] 211 10*3/uL Normal 150-450 [facility] Comment on above: Order Comment: Comme nts: Day #1 Reason for Laboratory Test Performed By: #### L 100.0500 #### [facility] [address] [place], [address] RBC (Bld) [#/Vol] 3.64 10*6/uL Low 4.2-5.4 [facility] Comment on above: Order Comment: Comme nts: Day #1 Reason for Laboratory Test Performed By: #### L 100.0500 #### [facility] [address] [place], [address] RDW SD 47.1 fl High 35.1-43.9 [facility] Comment on above: Order Comment: Comme nts: Day #1 Reason for Laboratory Test Performed By: #### L 100.0500 #### [facility] [address] [place], [address] WBC (Bld) [#/Vol] 12.2 10*3/uL High 4.4-11.0 [facility] Comment on above: Order Comment: Comme nts: Day #1 Reason for Laboratory Test Performed By: #### L 100.0500 #### [facility] [address] [place], [address] Erythrocyte distribution wid th ratioOrdered By: Fiordaliza Zhong on 03-29-2025 Erythrocyte distribution width (RBC) [Ratio] 15.5 % High 11.6-14.6 [facility] Erythrocyte distribution wid th standard deviationOrdered By: Fiordaliza Zhong on 03-29-2025 Erythrocyte distribution width (RBC) [Ratio] 47.1 fl High 35.1-43.9 [facility] Glucose measurement at bedsi deOrdered By: Fiordaliza Zhong on 03-29-2025 Glucose [Mass/Vol] 77 mg/dL 74-106 [facility] Comment on above: MANAGEMENT OF PATIEN T CARE PER NURSING PROTOCOL Hematocrit Auto (Bld) [Volum e fraction]Ordered By: Fiordaliza Zhong on 03-29-2025 Hematocrit (Bld) [Volume fraction] 30.4 % Low 37-47 [facility] Hemoglobin measurementOrdere d By: Fiordaliza Zhong on 03-29-2025 Hemoglobin (Bld) [Mass/Vol] 9.9 g/dL Low 12.0-15.0 [facility] MCV (mean corpuscular volume ) determinationOrdered By: Fiordaliza Zhong on 03-29-2025 MCV (RBC) [Entitic vol] 83.5 fL 81-99 [facility] Mean corpuscular hemoglobin (MCH) determinationOrdered By: Fiordaliza Zhong on 03-29-2025 MCH (RBC) [Entitic mass] 27.2 pg 27.0-32.0 [facility] Mean corpuscular hemoglobin concentration (MCHC) determinationOrdered By: Fiordaliza Zhong on 03-29-2025 MCHC (RBC) [Mass/Vol] 32.6 g/dL 32-36 [facility] Mean platelet volume determi nationOrdered By: Fiordaliza Zhong on 03-29-2025 Platelet mean volume (Bld) [Entitic vol] 10.6 fL 6.2-12.0 [facility] Platelet countOrdered By: Aga Zhong on 03-29-2025 Platelets (Bld) [#/Vol] 211 10*3/uL 150-450 [facility] RBC Auto (Bld) [#/Vol]Ordere d By: Fiordaliza Zhong on 03-29-2025 RBC (Bld) [#/Vol] 3.64 10*6/uL Low 4.2-5.4 [facility] White blood cell (WBC) count Ordered By: Fiordaliza Zhong on 03-29-2025 WBC (Bld) [#/Vol] 12.2 10*3/uL High 4.4-11.0 [facility] Absolute lymphocyte countOrd ered By: Fiordaliza Zhong on 03-28-2025 Lymphocytes Auto (Unsp spec) [#/Vol] 1.92 10*3/uL 0.83-4.51 [facility] Absolute neutrophil countOrd ered By: Fiordaliza Zhong on 03-28-2025 Neutrophils (Bld) [#/Vol] 8.7 10*3/uL High 2.0-7.7 [facility] Automated lymphocyte count a s percentage of total leukocytesOrdered By: Fiordaliza Zhong on 03-28-2025 Lymphocytes/100 WBC Auto (Unsp spec) 16.3 % Low 19-41 [facility] BRho(D) IGon 03-28-2025 Rho(D) IG Normal [facility] Comment on above: Result Comment: [id number] Rho(D) IG PRSMD TRFSD 03/28/25 1721 Performed By: #### L 509.8002 #### [facility] [address] [place], [place], [address] Basophil percentageOrdered B y: Fiordaliza Zhong on 03-28-2025 Basophils/100 WBC (Bld) 0.3 % 0-1 [facility] Bedside Glucoseon 03-28-2025 FINGERSTICK GLU 175 mg/dL High 74-106 [facility] Comment on above: Result Comment: JOAQUIM SEPULVEDA OF PATIENT CARE PER NURSING PROTOCOL Performed By: #### L 501.080 #### [facility] [address] [place], [place], [address] CBC W/Diff, Automatedon 03-14 Absolute Lymph 1.92 X10 3/uL Normal 0.83-4.51 [facility] Comment on above: Performed By: #### L 100.0500 #### [facility] [address] [place], [address] Absolute Neut 8.7 X10 3/uL High 2.0-7.7 [facility] Comment on above: Performed By: #### L 100.0500 #### [facility] [address] [place], [address] Basophils/100 WBC (Bld) 0.3 % Normal 0-1 [facility] Comment on above: Performed By: #### L 100.0500 #### [facility] [address] [place], [address] Eosinophils/100 WBC (Bld) 1.6 % Normal 0-5 [facility] Comment on above: Performed By: #### L 100.0500 #### [facility] [address] [place], [address] Erythrocyte distribution width (RBC) [Ratio] 15.5 % High 11.6-14.6 [facility] Comment on above: Performed By: #### L 100.0500 #### [facility] [address] [place], [address] Hematocrit (Bld) [Volume fraction] 32.4 % Low 37-47 [facility] Comment on above: Performed By: #### L 100.0500 #### [facility] [address] [place], [address] Hemoglobin (Bld) [Mass/Vol] 10.7 g/dL Low 12.0-15.0 [facility] Comment on above: Performed By: #### L 100.0500 #### [facility] [address] [place], [address] IG% 0.400 Normal 0.0-0.9 [facility] Comment on above: Result Comment: IG% - Immature Granulocytes (promyelocytes, myelocytes and metamyelocytes) > 1% indicates that a LEFT SHIFT is Present. Performed By: #### L 100.0500 #### [facility] [address] [place], [address] Lymphocytes/100 WBC (Bld) 16.3 % Low 19-41 [facility] Comment on above: Performed By: #### L 100.0500 #### [facility] [address] [place], [address] MCH (RBC) [Entitic mass] 27.5 pg Normal 27.0-32.0 [facility] Comment on above: Performed By: #### L 100.0500 #### [facility] [address] [place], [address] MCHC (RBC) [Mass/Vol] 33.0 g/dL Normal 32-36 [facility] Comment on above: Performed By: #### L 100.0500 #### [facility] [address] [place], [address] MCV (RBC) [Entitic vol] 83.3 fL Normal 81-99 [facility] Comment on above: Performed By: #### L 100.0500 #### [facility] [address] [place], [address] Monocytes/100 WBC (Bld) 7.5 % Normal 0-10 [facility] Comment on above: Performed By: #### L 100.0500 #### [facility] [address] [place], [address] Neutrophils/100 WBC (Bld) 73.9 % High 47-70 [facility] Comment on above: Performed By: #### L 100.0500 #### [facility] [address] [place], [address] Nucleated RBC (Bld) [#/Vol] 0 10*3/uL Normal 0-5 [facility] Comment on above: Performed By: #### L 100.0500 #### [facility] [address] [place], [address] Platelet mean volume (Bld) [Entitic vol] 10.8 fL Normal 6.2-12.0 [facility] Comment on above: Performed By: #### L 100.0500 #### [facility] [address] [place], [address] Platelets (Bld) [#/Vol] 247 10*3/uL Normal 150-450 [facility] Comment on above: Performed By: #### L 100.0500 #### [facility] [address] [place] [place], [address] RBC (Bld) [#/Vol] 3.89 10*6/uL Low 4.2-5.4 [facility] Comment on above: Performed By: #### L 100.0500 #### [facility] [address] [place], [address] RDW SD 46.6 fl High 35.1-43.9 [facility] Comment on above: Performed By: #### L 100.0500 #### [facility] [address] [place], [address] WBC (Bld) [#/Vol] 11.8 10*3/uL High 4.4-11.0 [facility] Comment on above: Performed By: #### L 100.0500 #### [facility] [address] [place], [address] Discharge Instructionon 03-14 Discharge Instruction [facility] Medical Records Department [address] [place] [address] Instructions for Home/Discharge Instructions 03/28/25 0719 MR#: [id number] Acct: [id number] Name: DEMETRIUS FERNANDES Rep #: [id number] : 1990 34 From: Fiordaliza Zhong MD [...] Up With: Fiordaliza Zhong MD When: Call [phone] to make an appointment for an incision [...] mg PO DAILY (DME) FreeStyle Hardeep 2 [place] Misc See Rx Instructions .ROUTE .MEDSUPPLY Qty: [...] CC: Dr. Delmar Luna MD Signed Normal [facility] Eosinophil percentageOrdered By: Fiordaliza Zhong on 03-28-2025 Eosinophils/100 WBC (Bld) 1.6 % 0-5 [facility] Immature granulocytes/100 WB C Auto (Bld)Ordered By: Fiordaliza Zhong on 03-28-2025 Immature granulocytes/100 WBC (Bld) 0.400 % 0.0-0.9 [facility] Comment on above: IG% - Immature Granu locytes (promyelocytes, myelocytes and metamyelocytes) > 1% indicates that a LEFT SHIFT is Present. Monocyte percentageOrdered B y: Fiordaliza Zhong on 03-28-2025 Monocytes/100 WBC (Bld) 7.5 % 0-10 [facility] Neutrophil percentageOrdered By: Fiordaliza Zhong on 03-28-2025 Neutrophils/100 WBC (Bld) 73.9 % High 47-70 [facility] Nucleated red blood cell per centageOrdered By: Fiordaliza Zhong on 03-28-2025 Nucleated RBC/100 WBC (Bld) [Ratio] 0 % 0-5 [facility] Operative Reporton 5 Operative Report [facility] Medical Records Department [address] [place] [address] Operative Report 03/28/25 0716 MR#: [id number] Acct: [id number] Name: DEMETRIUS FERNANDES Rep #: [id number] : 1990 34 From: Fiordaliza Zhong MD PCP: Dr. Delmar Luna MD Status:ADM IN Location: [id number] Assessment Plan (1) Pre-existing severe obesity in [...] Description: 3 Vessels Delayed Cord Clamping: Yes Emr Trainer director of program management: Yes Director Of Software Development: Catracho Davison Tasks completed by special ed assistant: Opening closing, Retracting and Other (assisting in delivery of the infant) Additional dental ceramist assistant?: No Complications Complications: No Admit VTE Documentation VTE Present on Admission: No VTE Mechan Device Prophylaxis: SCD's Procedures Urinary/Genital 52xxx-59xxx: 54510 Delivery [facility] 03/30/25 0800 Co (more content not included)... Normal [facility] Rh Negative Mom Workupon ABO and Rh group Nom (Bld) Blood group O Rh(D) negative Normal [facility] Comment on above: Order Comment: Comme nts: Age > 13 Ohrrunhnvej05 Performed By: #### L 509.8002 #### [facility] [place], [address] ABO and Rh group Nom (Bld) Blood group A Rh(D) positive Normal [facility] Comment on above: Order Comment: Comme nts: Age > 13 Opljelvozyd98 Performed By: #### L 509.8002 #### [facility] [address] [place], [address] DIRECT ANTIGLOB Negative Normal NEGATIVE [facility] Comment on above: Order Comment: Comme nts: Age > 13 Aktnyuurlfz59 Performed By: #### L 509.8002 #### [facility] [address] [place], [address] SCREEN Negative Normal NEGATIVE [facility] Comment on above: Order Comment: Comme nts: Age > 13 Wvktymisazw34 Performed By: #### L 509.8002 #### [facility] [address] [place], [address] MOM'S ABS Negative Normal [facility] Comment on above: Order Comment: Comme nts: Age > 13 Eibrsyghmyx73 Performed By: #### L 509.8002 #### [facility] [address] [place], [address] Syphilis Antibodieson 2024 Syphilis Abs Non-Reactive Normal Nonreactive [facility] Comment on above: Performed By: #### L 509.8002 #### [facility] [address] [place], [address] Type AND Screenon 03-28-2025 Ab SCREEN GEL Negative Normal [facility] Comment on above: Order Comment: Comme nts: Day #1 Reason for Laboratory Test Performed By: #### L 100.0500 #### [facility] [address] [place], [address] OB Triage Progress Noteon OB Triage Progress Note [facility] Medical Records Department [address] [place] [address] OB Triage Progress Note 03/24/25 1004 MR#: [id number] Acct: [id number] Name: DEMETRIUS FERNANDES Rep #: [id number] : 1990 34 From: Fiordaliza Zhong MD PCP: Dr. Delmar Luna MD Status:REG CLI Y DOS: Location: [place] [id number] Progress Notes Date of Service: 03/24/25 Progress Note: Patient presents for triage evaluation secondary to polyhydramnios FHT: 135 Moderate variability reactive no decelerations category I tracing Alvarado: no regular Contractions Assessment and plan: 36 weeks severe polyhydramnios Reactive NST, reassuring maternal and status patient discharged to home to follow-up as scheduled. See problem list details for additional plan information. Charges/Coding Procedures Urinary/Genital 52xxx-59xxx: 88852-99 non-stress test Interp 03/24/25 1005 Date Fiordaliza Zhong MD Cosigner Signature (if applicable): Date CC: Dr. Delmar Luna MD; Dr. Fiordaliza Zhong MD Signed Normal [facility] Job Printer Apprentice Office Visit Reporton 03-24-2025 Job Printer Apprentice Office Visit Report [facility]'s [address], [address] [place] [address] OFFICE VISIT Date of Service: 03/24/25 MR#: [id number] Acct: [id number] Name: DEMETRIUS FERNANDES Rep #: [id number] : 1990 Provider: Dr. Fiordaliza leong MD Age/Sex: 34/F Location: [place] Status: Signed Intake Vital Signs 03/24/25 09:10 03/24/25 10:26 Height 5 ft 9 in 5 ft 9 in Weight: 345 lb 9 oz BMI 51.0 BP 132/76 H Intake Visit Reasons: 37wk ob before csection *per Electrical Appliance Repairer Required: No Is patient in pain?: No [...] ea 03/07/25 03/24/25 Rx (FreeStyle Hardeep 2 [place]) lancets #200 ea 03/07/25 03/24/25 Rx Last [...] occupational status: employed and unemployed current occupation: [employer] current occupational exposures/hazards: No pets [...] home: Yes additional social history: - 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 Date Name GA/Weeks Outcome Route Bth Weight Gen Labor Lgth Anesthesia Del Locatn Provider FOB 04/14/21 Timmy 41 live - full term 8#2oz Male epidural [facility] GP [place] Delivery Date: 04/14/21 [...] Visit Note (more content not included)... Normal [facility] Rule out Beta Strep (Grp. B) on 03-23-2025 PRICE Group B Beta Streptococcus is not isolated. Normal [facility] Comment on above: Performed By: #### L 509.8002 #### [facility] Laboratory [address] [place], [place], [address] Laboratory - Chemistry and C hemistry - challengeOrdered By: Fiordaliza Zhong on 03-21-2025 Glucose Ql (U) Negative [facility] Laboratory - UrinalysisOrder ed By: Fiordaliza Zhong on 03-21-2025 Protein Ql (U) Negative [facility] Job Printer Apprentice Office Visit Reporton 03-21-2025 Job Printer Apprentice Office Visit Report [facility]'s [address], [address] [place] [address] OFFICE VISIT Date of Service: 03/21/25 MR#: [id number] Acct: [id number] Name: DEMETRIUS FERNANDES Rep #: [id number] : 1990 Provider: Dr. Fiordaliza leong MD Age/Sex: 34/F Location: [place] Status: Signed Intake Vital Signs 01/24/25 08:40 03/09/25 10:29 03/15/25 10:40 03/21/25 10:29 Height 5 ft 9 in 5 ft 9 in 5 ft 9 in 5 ft 9 in Weight: 342 lb 6 oz BMI 50.5 BP 127/72 H Intake Visit Reasons: 36 wk ob Electrical Appliance Repairer Required: No Is patient in pain?: No [...] ea 03/07/25 03/21/25 Rx (FreeStyle Hardeep 2 [place]) lancets #200 ea 03/07/25 03/21/25 Rx Last [...] occupational status: employed and unemployed current occupation: [employer] current occupational exposures/hazards: No pets [...] home: Yes additional social history: - 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 Date Name GA/Weeks Outcome Route Bth Weight Gen Labor Lgth Anesthesia Del Locatn Provider FOB 04/14/21 Timmy 41 live - full term 8#2oz Male epidural [facility] GP [place] Delivery Date: 04/14/21 [...] Visit Note (more content not included)... Normal [facility] Progress Noteon 03-21-2025 [employer] Teacher Authentication Interface Message Text Comanage Polyhydramnios- concern [...] of 03/21/2025. [2] No Known Allergies Normal [facility] Screening beta-hemolytic Str eptococcus cultureOrdered By: Fiordaliza Zhong on 03-21-2025 Beta-hemolytic Streptococcus culture Group B Beta Streptococcus is not isolated. [facility] Progress Noteon 03-16-2025 [employer] Social [employer] Teacher Authentication Interface Message Text Comanage Polyhydramnios- concern [...] of 03/16/2025. [2] No Known Allergies Normal [facility] OB Triage Progress Noteon OB Triage Progress Note [facility] Medical Records Department [address] [place] [address] OB Triage Progress Note 03/15/25 1110 MR#: [id number] Acct: [id number] Name: DEMETRIUS FERNANDES Rep #: [id number] : 1990 34 From: Fiordaliza Zhong MD PCP: Dr. Delmar Luna MD Status:REG CLI Y DOS: Location: [place] [address] Progress Notes Date of Service: 03/15/25 Progress Note: Patient presents for triage evaluation secondary to polyhydramnios FHT: 130-135 Moderate variability reactive no decelerations category I tracing Alvarado: no regular Contractions Assessment and plan: polyhydramnios 35 weeks Reactive NST, reassuring maternal and status patient discharged to home to follow-up as scheudled. See problem list details for additional plan information. Charges/Coding Procedures Urinary/Genital 52xxx-59xxx: 85428-03 non-stress test Interp Assessment Plan (1) Polyhydramnios [...] MD; Dr. 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 All questions answered. [facility] CS#46 recommendations. 1. Serial growth ultrasounds [...] -30 minutes chart review and documentation Normal [facility] Laboratory - Chemistry and C hemistry - challengeOrdered By: Aye Mcdowell on 03-09-2025 Glucose Ql (U) Negative [facility] Laboratory - UrinalysisOrder ed By: Aye Mcdowell on 03-09-2025 Protein Ql (U) Negative [facility] OB Triage Physician Noteon 0 03-09-2025 OB Triage Physician Note [facility] Medical Records Department [address] [place] [address] OB Triage Physician Note 03/09/252037 MR#: [id number] Acct: [id number] Name: DEMETRIUS FERNANDES Rep #: [id number] : 1990 34 From: Aye Dey DO PCP: Dr. 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 Date Name GA/Weeks Outcome Route Bth Weight Gen Labor Lgth Anesthesia Del Locatn Provider FOB 04/14/21 [place] 41 live - full term 8#2oz Male epidural [facility] GP [place] Delivery Date: 04/14/21 [...] -???-???-???-???-???-? ??- (more content not included)... 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 Date Name GA/Weeks Outcome Route Bth Weight Gen Labor Lgth Anesthesia Del [place] Provider FOB 04/14/21 Timmy 41 live - full term 8#2oz Male epidural [facility] GP [place] Delivery Date: 04/14/21 [...] -???- Gluc (more content not included)... Normal [facility] Laboratory - Chemistry and C hemistry - challengeOrdered By: Greg Rich on 02-22-2025 Glucose Ql (U) Negative [facility] Laboratory - UrinalysisOrder ed By: Greg Rich on 02-22-2025 Protein Ql (U) Negative [facility] Job Printer Apprentice Office Visit Reporton 02-22-2025 Job Printer Apprentice Office Visit Report [facility]'s [address], [address] [place] [address] OFFICE VISIT Date of Service: 02/22/25 MR#: [id number] Acct: [id number] Name: DEMETRIUS FERNANDES Rep #: [id number] : 1990 Provider: ZACHARY Way ams Age/Sex: 34/F Location: [place] Status: Signed Intake Vital Signs 01/12/25 09:43 02/07/25 09:25 02/22/25 10:03 Height 5 ft 9 in 5 ft 9 in 5 ft 9 in Weight: 338 lb 1 oz BMI 49.9 BP 132/76 H Intake Visit Reasons: 32 wk ob 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 Date Name GA/Weeks Outcome Route Bth Weight Gen Labor Lgth Anesthesia Del Locatn Provider FOB 04/14/21 Timmy 41 live - full term 8#2oz Male epidural [facility] GP [place] Delivery Date: 04/14/21 [...] cons with (more content not included)... Normal [facility] Laboratory - Chemistry and C hemistry - challengeOrdered By: Aye Mcdowell on 02-07-2025 Glucose Ql (U) Negative [facility] Laboratory - UrinalysisOrder ed By: Aye Mcdowell on 02-07-2025 Protein Ql (U) Negative [facility] Job Printer Apprentice Office Visit Reporton 02-07-2025 Job Printer Apprentice Office Visit Report [facility]'s [address], [address] [place] [address] OFFICE VISIT Date of Service: 02/07/25 MR#: [id number] Acct: [id number] Name: DEMETRIUS FERNANDES Rep #: [id number] : 1990 Provider: Dr. 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 Date Name GA/Weeks Outcome Route Bth Weight Infant Gen Labor Lgth Anesthesia Del [facility] Provider FOB 04/14/21 Timmy 41 live - full term 8#2oz Male epidural [facility] GP [place] Delivery Date: 04/14/21 [...] -???- K (more content not included)... Normal [facility] Gestational GTT 3HR 100gon 0 01-25-2025 GEST GTT 100gm Normal [facility] Comment on above: Order Comment: Y [...] 1025 Performed By: #### L 500.4710 #### [facility] Laboratory [address] [place], [place], [id number] Quantitative serum or plasma 3 hour gestational glucose tolerance panelOrdered By: Erick Rodriguez on 01-25-2025 Glucose tolerance 3 hours gestational panel See comment [facility] Comment on above: FASTING 91 Col: [...] Auto (Unsp spec) [#/Vol] 2.28 10*3/uL 0.83-4.51 [facility] Absolute neutrophil countOrd ered By: Erick Smithtings on 01-24-2025 Neutrophils (Bld) [#/Vol] 10.3 10*3/uL High 2.0-7.7 [facility] Automated lymphocyte count a s percentage of total leukocytesOrdered By: Erick Neche on 01-24-2025 Lymphocytes/100 WBC Auto (Unsp spec) 16.6 % Low 19-41 [facility] Basophil percentageOrdered B y: Erick Neche on 01-24-2025 Basophils/100 WBC (Bld) 0.3 % 0-1 [facility] CBC W/Diff, Automatedon 01-11 Absolute Lymph 2.28 X10 3/uL Normal 0.83-4.51 [facility] Comment on above: Performed By: #### L 509.8002 #### [facility] [address] [place], [place], [id number] Absolute Neut 10.3 X10 3/uL High 2.0-7.7 [facility] Comment on above: Performed By: #### L 509.8002 #### [facility] [address] [place], [place], [id number] Basophils/100 WBC (Bld) 0.3 % Normal 0-1 [facility] Comment on above: Performed By: #### L 509.8002 #### [facility] [address] [place], [address] Eosinophils/100 WBC (Bld) 0.9 % Normal 0-5 [facility] Comment on above: Performed By: #### L 509.8002 #### [facility] [address] [place], [address] Erythrocyte distribution width (RBC) [Ratio] 15.7 % High 11.6-14.6 [facility] Comment on above: Performed By: #### L 509.8002 #### [facility] [address] [place], [address] Hematocrit (Bld) [Volume fraction] 33.4 % Low 37-47 [facility] Comment on above: Performed By: #### L 509.8002 #### [facility] [address] [place], [address] Hemoglobin (Bld) [Mass/Vol] 10.6 g/dL Low 12.0-15.0 [facility] Comment on above: Performed By: #### L 509.8002 #### [facility] [address] [place], [address] IG% 0.700 Normal 0.0-0.9 [facility] Comment on above: Result Comment: IG% - Immature Granulocytes (promyelocytes, myelocytes and metamyelocytes) > 1% indicates that a LEFT SHIFT is Present. Performed By: #### L 509.8002 #### [facility] [address] [place], [address] Lymphocytes/100 WBC (Bld) 16.6 % Low 19-41 [facility] Comment on above: Performed By: #### L 509.8002 #### [facility] [address] [place], [address] MCH (RBC) [Entitic mass] 27.1 pg Normal 27.0-32.0 [facility] Comment on above: Performed By: #### L 509.8002 #### [facility] [address] [place], [address] MCHC (RBC) [Mass/Vol] 31.7 g/dL Low 32-36 [facility] Comment on above: Performed By: #### L 509.8002 #### [facility] [address] [place], [address] MCV (RBC) [Entitic vol] 85.4 fL Normal 81-99 [facility] Comment on above: Performed By: #### L 509.8002 #### [facility] [address] [place], [address] Monocytes/100 WBC (Bld) 6.5 % Normal 0-10 [facility] Comment on above: Performed By: #### L 509.8002 #### [facility] [address] [place], [address] Neutrophils/100 WBC (Bld) 75.0 % High 47-70 [facility] Comment on above: Performed By: #### L 509.8002 #### [facility] [address] [place], [address] Nucleated RBC (Bld) [#/Vol] 0 10*3/uL Normal 0-5 [facility] Comment on above: Performed By: #### L 509.8002 #### [facility] [address] [place], [address] Platelet mean volume (Bld) [Entitic vol] 10.7 fL Normal 6.2-12.0 [facility] Comment on above: Performed By: #### L 509.8002 #### [facility] [address] [place], [address] Platelets (Bld) [#/Vol] 262 10*3/uL Normal 150-450 [facility] Comment on above: Performed By: #### L 509.8002 #### [facility] [address] [place], [address] RBC (Bld) [#/Vol] 3.91 10*6/uL Low 4.2-5.4 [facility] Comment on above: Performed By: #### L 509.8002 #### [facility] [address] [place], [address] RDW SD 48.2 fl High 35.1-43.9 [facility] Comment on above: Performed By: #### L 509.8002 #### [facility] [address] [place], [address] WBC (Bld) [#/Vol] 13.8 10*3/uL High 4.4-11.0 [facility] Comment on above: Performed By: #### L 509.8002 #### [facility] [address] [place], [address] Eosinophil percentageOrdered By: Erick Rodriguez on 01-24-2025 Eosinophils/100 WBC (Bld) 0.9 % 0-5 [facility] Erythrocyte distribution wid th ratioOrdered By: Erick Rodriguez on 01-24-2025 Erythrocyte distribution width (RBC) [Ratio] 15.7 % High 11.6-14.6 [facility] Erythrocyte distribution wid th standard deviationOrdered By: Erick Rodriguez on 01-24-2025 Erythrocyte distribution width (RBC) [Ratio] 48.2 fl High 35.1-43.9 [facility] Glucose Challenge Gest 1H 50 ender 01-24-2025 GLU GEST 50g 1H 150 mg/dL High 70-140 [facility] Comment on above: Performed By: #### L 509.8002 #### [facility] [address] [place], [address] Glucose measurement at 2 lauro rs post-dose gestational glucose tolerance testOrdered By: Erick Rodriguez on 01-24-2025 Glucose [Mass/Vol] 150 mg/dL High 70-140 [facility] HIVon 01-24-2025 HIV Non-Reactive Normal Nonreactive [facility] Comment on above: Result Comment: Non- Reactive Reactive Repeatedly reactive samples must be confirmed according to CDC recommended confirmatory algorithms. The subresults for either HIVAG or AHIV can be used as an aid in the selection of the confirmation algorithm for reactive samples. Send out specimens with Reactive results to [facility] for confirmation. Order the HIV antibody detection and differentiation: lc#[id number] Performed By: #### L 509.8002 #### [facility] [address], [place], [address] Hematocrit Auto (Bld) [Volum e fraction]Ordered By: Erick Rodriguez on 01-24-2025 Hematocrit (Bld) [Volume fraction] 33.4 % Low 37-47 [facility] Hemoglobin measurementOrdere d By: Erick Rodriguez on 01-24-2025 Hemoglobin (Bld) [Mass/Vol] 10.6 g/dL Low 12.0-15.0 [facility] Immature granulocytes/100 WB C Auto (Bld)Ordered By: Erick Rodriguez on 01-24-2025 Immature granulocytes/100 WBC (Bld) 0.700 % 0.0-0.9 [facility] Comment on above: IG% - Immature Granu locytes (promyelocytes, myelocytes and metamyelocytes) > 1% indicates that a LEFT SHIFT is Present. Laboratory - Chemistry and C hemistry - challengeOrdered By: Erick Rodriguez on 01-24-2025 Glucose Ql (U) Negative [facility] Laboratory - UrinalysisOrder ed By: Erick Rodriguez on 01-24-2025 Protein Ql (U) Negative [facility] MCV (mean corpuscular volume ) determinationOrdered By: Erick Rodriguez on 01-24-2025 MCV (RBC) [Entitic vol] 85.4 fL 81-99 [facility] Mean corpuscular hemoglobin (MCH) determinationOrdered By: Erick Rodriguez on 01-24-2025 MCH (RBC) [Entitic mass] 27.1 pg 27.0-32.0 [facility] Mean corpuscular hemoglobin concentration (MCHC) determinationOrdered By: Erick Rodriguez on 01-24-2025 MCHC (RBC) [Mass/Vol] 31.7 g/dL Low 32-36 [facility] Mean platelet volume determi nationOrdered By: Erick Rodriguez on 01-24-2025 Platelet mean volume (Bld) [Entitic vol] 10.7 fL 6.2-12.0 [facility] Monocyte percentageOrdered B y: Erick Rodriguez on 01-24-2025 Monocytes/100 WBC (Bld) 6.5 % 0-10 [facility] Neutrophil percentageOrdered By: Erick Rodriguez on 01-24-2025 Neutrophils/100 WBC (Bld) 75.0 % High 47-70 [facility] No Panel InformationOrdered By: Erick Rodriguez on 01-24-2025 HIV (1&2) Antibody Non-Reactive Nonreactive [facility] Comment on above: Non-ReactiveReactive Repeatedly reactive samples must be confirmed according to CDC recommended confirmatory algorithms. The subresults for either HIVAG or AHIV can be used as an aid in the selection of the confirmation algorithm for reactive samples.Send out specimens with Reactive results to [facility] for confirmation.Order the HIV antibody detection and differentiation: #[id number] Nucleated red blood cell per centageOrdered By: Erick Rodriguez on 01-24-2025 Nucleated RBC/100 WBC (Bld) [Ratio] 0 % 0-5 [facility] Job Printer Apprentice Office Visit Reporton 01-24-2025 Job Printer Apprentice Office Visit Report [facility] [address], [address] [place] [address] OFFICE VISIT Date of Service: 01/24/25 MR#: [id number] Acct: [id number] Name: DEMETRIUS FERNANDES Rep #: [id number] : 1990 Provider: MARY JANE godoy Age/Sex: 34/F Location: [place] Status: Signed Intake Vital Signs 12/16/24 09:30 01/12/25 09:43 01/24/25 08:30 01/24/25 08:40 Height 5 ft 9 in 5 ft 9 in 5 ft 9 in 5 ft 9 in Weight: 331 lb 2 oz BMI 48.9 BP 124/72 H Intake Visit Reasons: 28wk ob/glucose/rhogam Chief Complaint: 28 Week OB/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 ac (more content not included)... Normal [facility] Platelet countOrdered By: Lalo Rodriguez on 01-24-2025 Platelets (Bld) [#/Vol] 262 10*3/uL 150-450 [facility] RBC Auto (Bld) [#/Vol]Ordere d By: Erick Rodriguez on 01-24-2025 RBC (Bld) [#/Vol] 3.91 10*6/uL Low 4.2-5.4 [facility] Syphilis Antibodieson 2024 Syphilis Abs Non-Reactive Normal Nonreactive [facility] Comment on above: Performed By: #### L 203.8162 #### [facility] [address] [place], [place], [id number] Type AND Screenon 01-24-2025 ABO and Rh group Nom (Bld) Blood group O Rh(D) negative Normal [facility] Comment on above: Order Comment: PN Performed By: #### L 507.8005 #### [facility] [address] [place], [place], [id number] White blood cell (WBC) count Ordered By: Erick Rodriguez on 01-24-2025 WBC (Bld) [#/Vol] 13.8 10*3/uL High 4.4-11.0 [facility] Laboratory - Chemistry and C hemistry - challengeOrdered By: Erick Rodriguez on 01-12-2025 Glucose Ql (U) Negative [facility] Laboratory - UrinalysisOrder ed By: Erick Rodriguez on 01-12-2025 Protein Ql (U) Negative [facility] Job Printer Apprentice Office Visit Reporton 01-12-2025 Job Printer Apprentice Office Visit Report [facility]'s [address], [address] [place] [address] OFFICE VISIT Date of Service: 01/12/25 MR#: [id number] Acct: [id number] Name: DEMETRIUS FERNANDES Rep #: [id number] : 1990 Provider: MARY JANE godoy Age/Sex: 34/F Location: [place] Status: Signed Intake Vital Signs 11/17/24 08:40 12/16/24 09:30 01/12/25 09:43 Height 5 ft 9 in 5 ft 9 in 5 ft 9 in Weight: 328 lb 8 oz BMI 48.4 BP 130/82 H Intake Visit Reasons: 26 wk ob 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 Date Name GA/Weeks Outcome Route Bth Weight Gen Labor Lgth Anesthesia Del Locatn Provider FOB 04/14/21 [place] 41 live - full term 8#2oz Male epidural [facility] GP Froilan Delivery Date: 04/14/21 [...] with dates (more content not included)... Normal [facility] Laboratory - Chemistry and C hemistry - challengeOrdered By: Fiordaliza Zhong on 12-16-2024 Glucose Ql (U) Negative [facility] Laboratory - UrinalysisOrder ed By: Fiordaliza Zhong on 12-16-2024 Protein Ql (U) Negative [facility] Job Printer Apprentice Office Visit Reporton 12-16-2024 Job Printer Apprentice Office Visit Report [facility]'s [address], [address] [place] [address] OFFICE VISIT Date of Service: 12/16/24 MR#: [id number] Acct: [id number] Name: DEMETRIUS FERNANDES Rep #: [id number] : 1990 Provider: Dr. 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 Date Name GA/Weeks Outcome Route Bth Weight Infant Gen Labor Lgth Anesthesia Del Locatn Provider FOB 04/14/21 [place] 41 live - full term 8#2oz Male epidural [facility] GP Froilan Delivery Date: 04/14/21 [...] this . (more content not included)... Normal [facility] L3410.9992on 11-23-2024 [facility] Misc. COMMENT Normal . [facility] Comment on above: Order Comment: Speci men Comment: SEE END OF THIS REPORT FOR CORRECTED REPORT COMMENTS [id number] msAFP SERUM RT Result Comment: Test Ordered: [id number] AFP, Serum, Open Spina Bifida Results Comment TG Reference Range: . The MOM and risk factors of this report have been modified based on new information supplied to us by the client or their designated financial services representative. The Weight was changed from Not [...] Customer Services to discuss available options. The [employer] recommends amniocentesis [...] TG Reference Range: . Candice Simmons, Ph.D., [facility] Director References: Available Upon Request. Multiples Of Median Cutoffs For AFP Elevations Worrell 2.5 Black 2.8 IDD 2.0 Twins 4.5 Abbreviation Definitions IDD - Insulin Dep Diabetes OSBR - Open Spina Bifida Risk For further inquiries contact [employer] [facility] at [phone]. This test was developed and its performance characteristics determined by [facility]. It has not been cleared or approved by the Food and Drug Administration. Performed at: - [facility] [place], [place] [id number] Molecular Spectroscopist: Cara Lanza [facility], Phone: [phone] Performed at: - [address] [id number] Molecular Spectroscopist: Jake Ferreira PhD, Phone: [phone] AMENDED REPORT 11/23/24 1609 [facility]. previously reported as: COMMENT Test Ordered: [id number] AFP, Serum, Open Spina Bifida Results Report [...] TG Reference Range: . Candice Simmons, Ph.D., [facility] Director References: Available Upon Request. Multiples Of Median Cutoffs For AFP Elevations Worrell 2.5 Black 2.8 IDD 2.0 Twins 4.5 Abbreviation Definitions IDD - Insulin Dep Diabetes OSBR - Open Spina Bifida Risk For further inquiries contact [employer] [facility] at [phone]. This test was developed and its performance characteristics determined by [employer]. It has not been cleared or approved by the Food and Drug Administration. Performed at: - [facility] RTP [address] [facility], [place], [place] [id number] Molecular Spectroscopist: Cara Lanza [facility], Phone: [phone] Performed at (more content not included)... Performed By: #### L 3410.9992 #### [facility] [address] [place], [place], [id number] Laboratory - Chemistry and C hemistry - challengeOrdered By: Erick Rodriguez on 11-17-2024 Glucose Ql (U) Negative [facility] Laboratory - UrinalysisOrder ed By: Erick Rodriguez on 11-17-2024 Protein Ql (U) Negative [facility] Job Printer Apprentice Office Visit Reporton 11-17-2024 Job Printer Apprentice Office Visit Report [facility]'s [address], [address] [place] [address] OFFICE VISIT Date of Service: 11/17/24 MR#: [id number] Acct: [id number] Name: DEMETRIUS FERNANDES Rep #: [id number] : 1990 Provider: MARY JANE godoy Age/Sex: 34/F Location: [place] Status: Signed Intake Vital Signs 09/23/24 09:08 10/22/24 10:18 11/17/24 08:40 Height 5 ft 9 in 5 ft 9 in 5 ft 9 in Weight: 317 lb 8 oz BMI 46.8 BP 126/80 H Intake Visit Reasons: 18wk ob Chief Complaint: 18 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 Date Name GA/Weeks Outcome Route Bth Weight Infant [facility]21 [place] 41 live - full term 8#2oz Male epidural [facility] GP Froilan Delivery Date: 04/14/21 [...] NIPT-very concerned (more content not included)... Normal [facility] Laboratory - Chemistry and C hemistry - challengeOrdered By: Aye Mcdowell on 10-22-2024 Glucose Ql (U) Negative [facility] Laboratory - UrinalysisOrder ed By: Aye Mcdowell on 10-22-2024 Protein Ql (U) Negative [facility] Job Printer Apprentice Office Visit Reporton 10-22-2024 Job Printer Apprentice Office Visit Report [facility] [address], [address] [place] [address] OFFICE VISIT Date of Service: 10/22/24 MR#: [id number] Acct: [id number] Name: DEMETRIUS FERNANDES Rep #: [id number] : 1990 Provider: Dr. 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 Date Name GA/Weeks Outcome Route Bth Weight Infant Gen Labor Lgth Anesthesia Del Locatn Provider FOB 04/14/21 [place] 41 live - full term 8#2oz Male epidural [facility] GP Froilan Delivery Date: 04/14/21 [...] NIPT-very concerned (more content not included)... Normal [facility] Miscellaneous procedureOrder ed By: Aye Mcdowell on 10-04-2024 Miscellaneous Test Comment SEE SCANNED REPORT [facility] NATERAon 10-04-2024 NATURA SEE SCANNED REPORT Normal [facility] Comment on above: Performed By: #### L 900.0098 #### [facility] [address] [place], [place], [address] PAP IG HPV APTIMA 16/18,45on 09-28-2024 ADEQ Comment Normal . [facility] Comment on above: Order Comment: Speci men Comment: [id number] Specimen Comment: Source.............Cervix;Endocervix Specimen Comment: LMP / Prev Treat...[id number] Specimen Comment: Other.............. Specimen Comment: No. of containers..01 ThinPrep Vial Result Comment: Sati sfactory for evaluation. No endocervical component is identified. An endocervical component is not commonly seen in the patient. Performed By: #### L 7000.1800, L7400.0280, M100.2200 #### [facility] [address] [place], [place], [address] COMM . Normal . [facility] Comment on above: Order Comment: Speci men Comment: [id number] Specimen Comment: Source.............Cervix;Endocervix Specimen Comment: LMP / Prev Treat...[id number] Specimen Comment: Other.............. Specimen Comment: No. of containers..01 ThinPrep Vial Performed By: #### L 7000.1800, L7400.0280, M100.2200 #### [facility] [address] [place], [place], [address] COMMENT Comment Normal . [facility] Comment on above: Order Comment: Speci men Comment: [id number] Specimen Comment: Source.............Cervix;Endocervix Specimen Comment: LMP / Prev Treat...[id number] Specimen Comment: Other.............. Specimen Comment: No. of containers..01 ThinPrep Vial Result Comment: This liquid based ThinPrep(R) pap test was screened with the use of an image guided system. Performed By: #### L 7000.1800, L7400.0280, M100.2200 #### [facility] [address] [place], [place], [address] DIAG Comment Normal . [facility] Comment on above: Order Comment: Speci men Comment: [id number] Specimen Comment: Source.............Cervix;Endocervix Specimen Comment: LMP / Prev Treat...[id number] Specimen Comment: Other.............. Specimen Comment: No. of containers..01 ThinPrep Vial Result Comment: NEGA TIVE FOR INTRAEPITHELIAL LESION OR MALIGNANCY. Performed By: #### L 7000.1800, L7400.0280, M100.2200 #### [facility] [address] [place], [place], [address] HPV APTIMA, HR Negative Normal Negative [facility] Comment on above: Order Comment: Speci men Comment: [id number] Specimen Comment: Source.............Cervix;Endocervix Specimen Comment: LMP / Prev Treat...[id number] Specimen Comment: Other.............. Specimen Comment: No. of containers..01 ThinPrep Vial Result Comment: This nucleic acid amplification test detects fourteen high- risk HPV types (16,18,31,33,35,39,45,51,52,56,58,59,66,68) without differentiation. Performed By: #### L 7000.1800, L7400.0280, M100.2200 #### [facility] [address] [place], [place], [address] HPV Sarah Rfx Comment Normal . [facility] Comment on above: Order Comment: Speci men Comment: [id number] Specimen Comment: Source.............Cervix;Endocervix Specimen Comment: LMP / Prev Treat...[id number] Specimen Comment: Other.............. Specimen Comment: No. of containers..01 ThinPrep Vial Result Comment: Crit mellissa not met, HPV Genotype not performed. Performed at: - [address] [id number] Molecular Spectroscopist: Silvia Irwin MD, Phone: [phone] Performed at: = - [address] [id number] Molecular Spectroscopist: Silvia Irwin MD, Phone: [phone] Performed By: #### L 7000.1800, L7400.0280, M1.0 #### [facility] [address] [facility] [place], [place], [address] PAPSMR Comment Normal . [facility] Comment on above: Order Comment: Speci men Comment: [id number] Specimen Comment: Source.............Cervix;Endocervix Specimen Comment: LMP / Prev Treat...[id number] Specimen Comment: Other.............. Specimen Comment: No. of [...] By: #### L 7000.1800, L7400.0280, M100.2200 #### [facility] [address] [place], [address] PERFORM Comment Normal . [facility] Comment on above: Order Comment: Speci men Comment: [id number] Specimen Comment: Source.............Cervix;Endocervix Specimen Comment: LMP / Prev Treat...[id number] Specimen Comment: Other.............. Specimen Comment: No. of containers..01 ThinPrep Vial Result Comment: Tammy Horan, Hide Buffer (ASCP) Performed By: #### L 7000.1800, L7400.0280, M100.2200 #### [facility] [address] [place], [address] Chlamydia/GC ARIAN aptimaon CHLAMY,NUC ACID Negative Normal Negative [facility] Comment on above: Performed By: #### L 7000.1800, L7400.0280, M100.2200 #### [facility] [address] [place], [address] GC BY NUC ACID Negative Normal Negative [facility] Comment on above: Result Comment: Perf ormed at: =G - [facility] [address] [id number] Molecular Spectroscopist: Silvia Irwin MD, Phone: [phone] Performed By: #### L 7000.1800, L7400.0280, M100.2200 #### [facility] [address] [place], [address] Urine Cultureon 09-24-2024 [facility] Culture exhibits no growth. Normal [facility] Comment on above: Performed By: #### L 7000.1800, L7400.0280, M100.2200 #### [facility] [address] [place], [address] Absolute lymphocyte countOrd ered By: Greg Rich on 09-23-2024 Lymphocytes Auto (Unsp spec) [#/Vol] 2.53 10*3/uL 0.83-4.51 [facility] Absolute neutrophil countOrd ered By: Greg Rich on 09-23-2024 Neutrophils (Bld) [#/Vol] 8.7 10*3/uL High 2.0-7.7 [facility] Automated lymphocyte count a s percentage of total leukocytesOrdered By: Greg Rich on 09-23-2024 Lymphocytes/100 WBC Auto (Unsp spec) 20.5 % 19-41 [facility] Basophil percentageOrdered B y: Greg Rich on 09-23-2024 Basophils/100 WBC (Bld) 0.5 % 0-1 [facility] C. trachomatis rRNA ARIAN+prob e Ql (Unsp spec)Ordered By: Greg Rich on 09-23-2024 Chlamydia DNA (ARIAN) Negative Negative [facility] CBC W/Diff, Automatedon 09-11 Absolute Lymph 2.53 X10 3/uL Normal 0.83-4.51 [facility] Comment on above: Performed By: #### L 100.0500 #### [facility] [address] [place], [address] Absolute Neut 8.7 X10 3/uL High 2.0-7.7 [facility] Comment on above: Performed By: #### L 100.0500 #### [facility] [address] [place], [address] Basophils/100 WBC (Bld) 0.5 % Normal 0-1 [facility] Comment on above: Performed By: #### L 100.0500 #### [facility] [address] [place], [address] Eosinophils/100 WBC (Bld) 1.2 % Normal 0-5 [facility] Comment on above: Performed By: #### L 100.0500 #### [facility] [address] [place], [address] Erythrocyte distribution width (RBC) [Ratio] 14.0 % Normal 11.6-14.6 [facility] Comment on above: Performed By: #### L 100.0500 #### [facility] [address] [place], [address] Hematocrit (Bld) [Volume fraction] 36.9 % Low 37-47 [facility] Comment on above: Performed By: #### L 100.0500 #### [facility] [address] [place] [place], [address] Hemoglobin (Bld) [Mass/Vol] 12.0 g/dL Normal 12.0-15.0 [facility] Comment on above: Performed By: #### L 100.0500 #### [facility] [address] [place], [address] IG% 0.300 Normal 0.0-0.9 [facility] Comment on above: Result Comment: IG% - Immature Granulocytes (promyelocytes, myelocytes and metamyelocytes) > 1% indicates that a LEFT SHIFT is Present. Performed By: #### L 100.0500 #### [facility] [address] [place], [address] Lymphocytes/100 WBC (Bld) 20.5 % Normal 19-41 [facility] Comment on above: Performed By: #### L 100.0500 #### [facility] [address] [place], [address] MCH (RBC) [Entitic mass] 27.3 pg Normal 27.0-32.0 [facility] Comment on above: Performed By: #### L 100.0500 #### [facility] [address] [place], [address] MCHC (RBC) [Mass/Vol] 32.5 g/dL Normal 32-36 [facility] Comment on above: Performed By: #### L 100.0500 #### [facility] [address] [place], [address] MCV (RBC) [Entitic vol] 83.9 fL Normal 81-99 [facility] Comment on above: Performed By: #### L 100.0500 #### [facility] [address] [place], [address] Monocytes/100 WBC (Bld) 7.0 % Normal 0-10 [facility] Comment on above: Performed By: #### L 100.0500 #### [facility] [address] [place], [address] Neutrophils/100 WBC (Bld) 70.5 % High 47-70 [facility] Comment on above: Performed By: #### L 100.0500 #### [facility] [address] [place], [address] Nucleated RBC (Bld) [#/Vol] 0 10*3/uL Normal 0-5 [facility] Comment on above: Performed By: #### L 100.0500 #### [facility] [address] [place], [address] Platelet mean volume (Bld) [Entitic vol] 10.7 fL Normal 6.2-12.0 [facility] Comment on above: Performed By: #### L 100.0500 #### [facility] [address] [place], [address] Platelets (Bld) [#/Vol] 294 10*3/uL Normal 150-450 [facility] Comment on above: Performed By: #### L 100.0500 #### [facility] [address] [place], [address] RBC (Bld) [#/Vol] 4.40 10*6/uL Normal 4.2-5.4 [facility] Comment on above: Performed By: #### L 100.0500 #### [facility] [address] [place], [address] RDW SD 43.3 fl Normal 35.1-43.9 [facility] Comment on above: Performed By: #### L 100.0500 #### [facility] [address] [place], [address] WBC (Bld) [#/Vol] 12.3 10*3/uL High 4.4-11.0 [facility] Comment on above: Performed By: #### L 100.0500 #### [facility] [address] [place], [address] Cervical or vaginal specimen microscopic examination by liquid based cytology (reportOrdered By: Greg Rich on 09-23-2024 Cytology report Cyto stain.thin prep Doc (Cvx/Vag) Comment . [facility] Comment on above: Criteria not met, HP V Genotype not performed.Performed at: - [address] [id number] Director: Silvia Irwin MD, Phone: [phone] at: =[address] [id number] Director: Silvia Irwin MD, Phone: [phone] Cervical or vagninal specime n microscopic examination by cytology stain (reported asOrdered By: Greg Rich on 09-23-2024 Cytology report Cyto stain Doc (Cvx/Vag) Comment . [facility] Comment on above: The Pap smear [...] rRNA ARIAN+probe Ql (Unsp spec) Negative Negative [facility] Utility Appraiser Cyto stain Nom (C vx/Vag) [ID]Ordered By: Greg Rich on 09-23-2024 Pap Smear Performed By Comment . [facility] Comment on above: Jorge A Art totechnologist (ASCP) Cytology report Cyto stain D oc (Cvx/Vag)Ordered By: Greg Rich on 09-23-2024 Thin Prep Pap Smear Comment . [facility] Comment on above: The Pap smear is [...] 09-23-2024 HPV Genotype Special Info Comment . [facility] Comment on above: Criteria not met, HP V Genotype not performed.Performed at: - [facility] [id number] Director: Silvia Irwin MD, Phone: [phone] at: = - [facility] [address] [id number] Director: Silvia Irwin MD, Phone: [phone] Detection in cervical specim en of any of human papilloma virus (HPV) 16, 18, 31, 33,Ordered By: Greg Rich on 09-23-2024 HPV 16+18+31+33+35+39+45+51+ 52+56+58+59+66+68 DNA Probe+sig amp Ql (Cvx) Negative Negative [facility] Comment on above: This nucleic acid am plification test detects fourteen high-risk HPV types (16,18,31,33,35,39,45,51,52,56,58,59,66,68)without differentiation. Eosinophil percentageOrdered By: Greg Rich on 09-23-2024 Eosinophils/100 WBC (Bld) 1.2 % 0-5 [facility] Erythrocyte distribution wid th ratioOrdered By: Greg Rich on 09-23-2024 Erythrocyte distribution width (RBC) [Ratio] 14.0 % 11.6-14.6 [facility] Erythrocyte distribution wid th standard deviationOrdered By: Greg Rich on 09-23-2024 Erythrocyte distribution width (RBC) [Entitic vol] 43.3 fL 35.1-43.9 [facility] Erythrocyte distribution width (RBC) [Ratio] 43.3 fl 35.1-43.9 [facility] HBV surface Ag Ql (S)Ordered By: Greg Rich on 09-23-2024 Hepatitis B Surface Antigen Non-Reactive Nonreactive [facility] Comment on above: Reactive: Presumptiv e evidence of HBV. Repeatedly reactive samples must be confirmed using a neutralization test ([facility] HBsAg Confirmatory Test)Non-Reactive: HBsAg not detected; does not exclude the possibility of exposure to HBV HPV 16+18+31+33+35+39+45+51+ 52+56+58+59+66+68 DNA Probe+sig amp Ql (Cvx)Ordered By: Greg Rich on 09-23-2024 Human Papillomavirus High Risk Negative Negative [facility] Comment on above: This nucleic acid am plification test detects fourteen high-risk HPV types (16,18,31,33,35,39,45,51,52,56,58,59,66,68)without differentiation. Hematocrit Auto (Bld) [Volum e fraction]Ordered By: Greg Rich on 09-23-2024 Hematocrit (Bld) [Volume fraction] 36.9 % Low 37-47 [facility] Hemoglobin A1con 09-23-2024 HbA1c (Bld) [Mass fraction] 5.6 % Low <=5.6 [facility] Comment on above: Performed By: #### L 509.8002 #### [facility] [address] [place] [address], [address] Hemoglobin A1c percentageOrd ered By: Greg Rich on 09-23-2024 HbA1c (Bld) [Mass fraction] 5.6 % Low >5.7 [facility] Hemoglobin measurementOrdere d By: Gerg Rich on 09-23-2024 Hemoglobin (Bld) [Mass/Vol] 12.0 g/dL 12.0-15.0 [facility] Hepatitis C antibodyOrdered By: Greg Rich on 09-23-2024 Hepatitis C Antibody Non-Reactive Nonreactive [facility] Comment on above: Reactive: Presumptiv e evidence of antibodies to HCV. Follow CDC recommendations for supplemental testing.Non-Reactive: Antibodies to HCV were not detected; does not exclude the possibility of exposure to HCVReactive Results are presumptive evidence of antibodies to HCV. Follow CDC recommendations for supplemental testing.Order confirmation testing: HCV Quant by PCR testing - HCVPCR #[id number] Non Reactive: < 0.8 Equivocal: >/= 0.8 to < 1.0 Reactive: >/= 1.0The CDC requires that a reactive/equivocal HCV antibody result be sent out for confirmation. HCV Quant by PCR testing. Image-guided ThinPrep PapOrd ered By: Greg Rich on 09-23-2024 Pap Smear Note Comment . [facility] Comment on above: This liquid based Th inPrep(R) pap test was screened withthe use of an image guided system. Image-guided liquid-based Pa pOrdered By: Greg Rich on 09-23-2024 Pap Smear Diagnosis Comment . [facility] Comment on above: NEGATIVE FOR INTRAEP ITHELIAL LESION OR MALIGNANCY. Immature granulocytes/100 WB C Auto (Bld)Ordered By: Greg Rich on 09-23-2024 Immature granulocytes/100 WBC (Bld) 0.300 % 0.0-0.9 [facility] Comment on above: IG% - Immature Granu locytes (promyelocytes, myelocytes and metamyelocytes) > 1% indicates that a LEFT SHIFT is Present. L3890.6006on 09-23-2024 HIV Non-Reactive Normal Nonreactive [facility] Comment on above: Result Comment: Non- Reactive Reactive Repeatedly reactive samples must be confirmed according to CDC recommended confirmatory algorithms. The subresults for either HIVAG or AHIV can be used as an aid in the selection of the confirmation algorithm for reactive samples. Send out specimens with Reactive results to [facility] for confirmation. Order the HIV antibody detection and differentiation: lc#[id number] Performed By: #### L 100.0500 #### [facility] Laboratory [facility] [address] [place], [address] L3890.6102on 09-23-2024 HEP B Surf Ag Non-Reactive Normal Nonreactive [facility] Comment on above: Result Comment: Reac tive: Presumptive evidence of HBV. Repeatedly reactive samples must be confirmed using a neutralization test (Elecsys HBsAg Confirmatory Test) Non-Reactive: HBsAg not detected; does not exclude the possibility of exposure to HBV Performed By: #### L 100.0500 #### [facility] [address] [place], [address] L3890.6301on 09-23-2024 Hepatitis C Ab Non-Reactive Normal Nonreactive [facility] Comment on above: Result Comment: Reac tive: Presumptive evidence of antibodies to HCV. Follow CDC recommendations for supplemental testing. Non-Reactive: Antibodies to HCV were not detected; does not exclude the possibility of exposure to HCV Reactive Results are presumptive evidence of antibodies to HCV. Follow CDC recommendations for supplemental testing. Order confirmation testing: HCV Quant by PCR testing - HCVPCR #[id number] Non Reactive: < 0.8 Equivocal: >/= 0.8 to < 1.0 Reactive: >/= 1.0 The CDC requires that a reactive/equivocal HCV antibody result be sent out for confirmation. HCV Quant by PCR testing. Performed By: #### L 100.0500 #### [facility] [address] [place], [address] L509.4006on 09-23-2024 Rubella IgG REAC Normal Nonreactive [facility] Comment on above: Result Comment: Anti body Result: Interpretation Non-Reactive: Non-Immune Reactive: Immune The following results were obtained with the Elecsys Rubella IgG assay. Results from assays of other manufacturers cannot be used interchangeably. Performed By: #### L 100.0500 #### [facility] [address] [place], [address] L509.8002on 09-23-2024 Syphilis Abs Non-Reactive Normal Nonreactive [facility] Comment on above: Performed By: #### L 100.0500 #### [facility] [address] [place], [address] Laboratory - CytologyOrdered By: Greg Rich on 09-23-2024 Utility Appraiser Cyto stain Nom (Cvx/Vag) [ID] Comment . [facility] Comment on above: Jorge A Art totechnologist (ASCP) Laboratory - Microbiology an d Antimicrobial susceptibilityOrdered By: Greg Rihc on 09-23-2024 HBV surface Ag Ql (S) Non-Reactive Nonreactive [facility] Comment on above: Reactive: Presumptiv e evidence of HBV. Repeatedly reactive samples must be confirmed using a neutralization test (Elecsys HBsAg Confirmatory Test)Non-Reactive: HBsAg not detected; does not exclude the possibility of exposure to HBV Laboratory - Miscellaneous t estsOrdered By: Greg Rich on 09-23-2024 Service comment (Unsp spec) [Interp] . . [facility] Lymphocytes Auto (Unsp spec) [#/Vol]Ordered By: Greg Rich on 09-23-2024 Lymphocytes (Bld) [#/Vol] 2.53 10*3/uL 0.83-4.51 [facility] Lymphocytes/100 WBC Auto (Un sp spec)Ordered By: Greg Rich on 09-23-2024 Lymphocytes/100 WBC (Bld) 20.5 % 19-41 [facility] MCV (mean corpuscular volume ) determinationOrdered By: Greg Rich on 09-23-2024 MCV (RBC) [Entitic vol] 83.9 fL 81-99 [facility] Mean corpuscular hemoglobin (MCH) determinationOrdered By: Greg Rich on 09-23-2024 MCH (RBC) [Entitic mass] 27.3 pg 27.0-32.0 [facility] Mean corpuscular hemoglobin concentration (MCHC) determinationOrdered By: Greg Rich on 09-23-2024 MCHC (RBC) [Mass/Vol] 32.5 g/dL 32-36 [facility] Mean platelet volume determi nationOrdered By: Greg Rich on 09-23-2024 Platelet mean volume (Bld) [Entitic vol] 10.7 fL 6.2-12.0 [facility] Miscellaneous procedureOrder ed By: Greg Rich on 09-23-2024 Miscellaneous Test Comment SEE SCANNED REPORT [facility] Monocyte percentageOrdered B y: Greg Rich on 09-23-2024 Monocytes/100 WBC (Bld) 7.0 % 0-10 [facility] NATERAon 09-23-2024 NATURA SEE SCANNED REPORT Normal [facility] Comment on above: Order Comment: Comme nts: Day #1 Reason for Laboratory Test Performed By: #### L 100.0500 #### [facility] [address] [place], [address] Neisseria gonorrhoeae nuclei c acid detection by amplified probe techniqueOrdered By: Greg Rich on 09-23-2024 N. gonorrhoeae DNA ARIAN+probe Ql (Unsp spec) Negative Negative [facility] Comment on above: Performed at: =[address] [id number] Director: Silvia Irwin MD, Phone: [phone] Neutrophil percentageOrdered By: Greg Rich on 09-23-2024 Neutrophils/100 WBC (Bld) 70.5 % High 47-70 [facility] No Panel InformationOrdered By: Greg Rich on 09-23-2024 Pap Smear Specimen Adequacy Comment . [facility] Comment on above: Satisfactory for rosa luation. No endocervical component is identified.An endocervical component is not commonly seen in the patient. HIV (1&2) Antibody Non-Reactive Nonreactive [facility] Comment on above: Non-ReactiveReactive Repeatedly reactive samples must be confirmed according to CDC recommended confirmatory algorithms. The subresults for either HIVAG or AHIV can be used as an aid in the selection of the confirmation algorithm for reactive samples.Send out specimens with Reactive results to [facility] for confirmation.Order the HIV antibody detection and differentiation: #[id number] Nucleated red blood cell per centageOrdered By: Greg Rich on 09-23-2024 Nucleated RBC/100 WBC (Bld) [Ratio] 0 % 0-5 [facility] Job Printer Apprentice Office Visit Reporton 09-23-2024 Job Printer Apprentice Office Visit Report [facility] [address], [address] [place] [address] OFFICE VISIT Date of Service: 09/23/24 MR#: [id number] Acct: [id number] Name: DEMETRIUS FERNANDES Rep #: [id number] : 1990 Provider: ZACHARY Way ams Age/Sex: 34/F [place] [facility] Status: Signed Intake Vital Signs 04/13/21 [...] occupational status: employed and unemployed current occupation: H[employer] current occupational exposures/hazards: No pets [...] additional social history: - [employer] AUGUSTINE @ [facility] 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 Date Name GA/Weeks Outcome Route Bth Weight Gen Labor Lgth Anesthesia Del Locatn Provider FOB 04/14/21 [place] 41 live - full term 8#2oz Male epidural [facility] GP [place] Delivery Date: 04/14/21 [...] dates. accepts (more content not included)... Normal [facility] Platelet countOrdered By: Akbar Rich on 09-23-2024 Platelets (Bld) [#/Vol] 294 10*3/uL 150-450 [facility] RBC Auto (Bld) [#/Vol]Ordere d By: Greg Rich on 09-23-2024 RBC (Bld) [#/Vol] 4.40 10*6/uL 4.2-5.4 [facility] Rubella immune status determ ination by IgG antibody assayOrdered By: Greg Rich on 09-23-2024 Rubella IgG Antibody REAC Nonreactive [facility] Comment on above: Antibody Result: Int erpretationNon-Reactive: Non-ImmuneReactive: ImmuneThe following results were obtained with the Elecsys Rubella IgG assay. Results from assays of other manufacturers cannot be used interchangeably. Service comment (Unsp spec) [Interp]Ordered By: Greg Rich on 09-23-2024 Pap Smear Comment (3) . . [facility] T. pallidum abOrdered By: Akbar Rich on 09-23-2024 Syphilis Total Antibody Non-Reactive Nonreactiv e [facility] Type AND Screenon 09-23-2024 ABO and Rh group Nom (Bld) Blood group O Rh(D) negative Normal [facility] Comment on above: Order Comment: Comme nts: Day #1 Reason for Laboratory Test Performed By: #### L 100.0500 #### [facility] [address] [place], [address] Urine cultureOrdered By: Luan Rich on 09-23-2024 Bacteria identified Cx Nom (U) Culture exhibits no growth. [facility] White blood cell (WBC) count Ordered By: Greg Rich on 09-23-2024 WBC (Bld) [#/Vol] 12.3 10*3/uL High 4.4-11.0 [facility] Serum Varicella zoster virus IgG antibody assay by immunoassay (units/volume)Ordered By: Cristina Barros on 03-06-2023 VZV IgG IA Qn (S) 3665 index Immune >165 [facility] Comment on above: Negative <135 Equivo eben 135 - 165 Positive >165A positive result generally indicates exposure to thepathogen or administration of specific immunoglobulins,but it is not indication of active infection or stageof disease.Performed at: - [address] [id number] Director: Jake Ferreira PhD, Phone: [phone] No Panel Informationon 02-19 Rubella IgG Antibody Reactive Nonreactive [facility] Work Phone: Comment on above: Antibody Results Int erpretation of Immune Status Non Reactive Presumed Non-Immune Equivocal Equivocal Reactive Presumed Immune Serum measles virus IgG anti body assay by immunoassay (units/volume)on 02-19-2022 MeV IgG IA Qn (S) 150.0 AU/mL Immune >16.4 [facility] Work Phone: Comment on above: Negative <13.5 Equiv ocal 13.5 - 16.4 Positive >16.4Presence of antibodies to Rubeola is presumptive evidenceof immunity except when acute infection is suspected.Performed at: [address] [id number] Director: Jake Ferreira PhD, Phone: [phone] Serum mumps virus IgG antibo dy assay (units/volume)on 02-19-2022 MuV IgG Qn (S) 16.6 AU/mL Immune >10.9 [facility] Work Phone: Comment on above: Negative <9.0 Equivo eben 9.0 - 10.9 Positive >10.9A positive result generally indicates past exposure toMumps virus or previous vaccination. Vital Signs Date Time Vital Sign Value Performing Clinician Jenelle simmons 03-30-2025 17:29-0400 Body temperature 97 [degF] Erick Brooks MEDICAL BILLING INSTRUCTOR-C Work Phone: [facility] 03-30-2025 17:29-0400 Diastolic blood pressure 67 mm[Hg] Erick Brooks MEDICAL BILLING INSTRUCTOR-C Work Phone: [facility] 03-30-2025 17:29-0400 Heart rate 73 /min Erick Neche MEDICAL BILLING INSTRUCTOR-C Work Phone: [facility] 03-30-2025 17:29-0400 Respiratory rate 18 /min Erick Brooks MEDICAL BILLING INSTRUCTOR-C Work Phone: [facility] 03-30-2025 17:29-0400 SaO2% (BldA) [Mass fraction] 98 % Erick Brooks MEDICAL BILLING INSTRUCTOR-C Work Phone: [facility] 03-30-2025 17:29-0400 Systolic blood pressure 127 mm[Hg] Erick Brooks MEDICAL BILLING INSTRUCTOR-C Work Phone: [facility] 03-28-2025 05:40-0400 Body height 175.26 cm Erick Neche MEDICAL BILLING INSTRUCTOR-C Work Phone: [facility] 03-28-2025 05:40-0400 Body mass index (BMI) [Ratio] 51.5 kg/m2 Erick Neche MEDICAL BILLING INSTRUCTOR-C Work Phone: [facility] 03-28-2025 05:40-0400 Body weight 158.3 kg Erick Brooks MEDICAL BILLING INSTRUCTOR-C Work Phone: [facility] 03-24-2025 10:26-0400 Body height 175.26 cm Erick Brooks MEDICAL BILLING INSTRUCTOR-C Work Phone: [facility] 03-24-2025 10:26-0400 Body mass index (BMI) [Ratio] 51 kg/m2 Erick Brooks MEDICAL BILLING INSTRUCTOR-C Work Phone: [facility] 03-24-2025 10:26-0400 Body weight 156.74 kg Erick Neche MEDICAL BILLING INSTRUCTOR-C Work Phone: [facility] 03-24-2025 10:26-0400 Diastolic blood pressure 76 mm[Hg] Erick Brooks MEDICAL BILLING INSTRUCTOR-C Work Phone: [facility] 03-24-2025 10:26-0400 Systolic blood pressure 132 mm[Hg] Erick Neche MEDICAL BILLING INSTRUCTOR-C Work Phone: [facility] 03-24-2025 09:10-0400 Body height 175.26 cm Erick Neche MEDICAL BILLING INSTRUCTOR-C Work Phone: [facility] 03-24-2025 09:10-0400 Body mass index (BMI) [Ratio] 51.1 kg/m2 Erick Neche MEDICAL BILLING INSTRUCTOR-C Work Phone: [facility] 03-24-2025 09:10-0400 Body weight 157 kg Erick Neche MEDICAL BILLING INSTRUCTOR-C Work Phone: [facility] 03-24-2025 09:10-0400 Diastolic blood pressure 64 mm[Hg] Erick Neche MEDICAL BILLING INSTRUCTOR-C Work Phone: [facility] 03-24-2025 09:10-0400 Heart rate 82 /min Erick Neche MEDICAL BILLING INSTRUCTOR-C Work Phone: [facility] 03-24-2025 09:10-0400 Systolic blood pressure 133 mm[Hg] Erick Brooks MEDICAL BILLING INSTRUCTOR-C Work Phone: [facility] 03-21-2025 10:29-0400 Body height 175.26 cm Erick Brooks MEDICAL BILLING INSTRUCTOR-C Work Phone: [facility] 03-21-2025 10:29-0400 Body mass index (BMI) [Ratio] 50.5 kg/m2 Erick Neche MEDICAL BILLING INSTRUCTOR-C Work Phone: [facility] 03-21-2025 10:29-0400 Body weight 155.29 kg Erick Neche MEDICAL BILLING INSTRUCTOR-C Work Phone: [facility] 03-21-2025 10:29-0400 Diastolic blood pressure 72 mm[Hg] Erick Neche MEDICAL BILLING INSTRUCTOR-C Work Phone: [facility] 03-21-2025 10:29-0400 Systolic blood pressure 127 mm[Hg] Erick Brooks MEDICAL BILLING INSTRUCTOR-C Work Phone: [facility] 03-15-2025 10:55-0400 Respiratory rate 16 /min Erick Neche MEDICAL BILLING INSTRUCTOR-C Work Phone: [facility] 03-15-2025 10:44-0400 Diastolic blood pressure 66 mm[Hg] Erick Neche MEDICAL BILLING INSTRUCTOR-C Work Phone: [facility] 03-15-2025 10:44-0400 Heart rate 74 /min Erick Brooks MEDICAL BILLING INSTRUCTOR-C Work Phone: [facility] 03-15-2025 10:44-0400 Systolic blood pressure 123 mm[Hg] Erick Neche MEDICAL BILLING INSTRUCTOR-C Work Phone: [facility] 03-15-2025 10:40-0400 Body height 175.26 cm Erick Brooks MEDICAL BILLING INSTRUCTOR-C Work Phone: [facility] 03-15-2025 10:40-0400 Body mass index (BMI) [Ratio] 49.8 kg/m2 Erick Neche MEDICAL BILLING INSTRUCTOR-C Work Phone: [facility] 03-15-2025 10:40-0400 Body weight 153 kg Erick Arguetas MEDICAL BILLING INSTRUCTOR-C Work Phone: [facility] 03-09-2025 10:33-0400 Heart rate 67 /min Erick Brooks MEDICAL BILLING INSTRUCTOR-C Work Phone: [facility] 03-09-2025 10:33-0400 SaO2% (BldA) [Mass fraction] 96 % Erick Neche MEDICAL BILLING INSTRUCTOR-C Work Phone: [facility] 03-09-2025 10:29-0400 Body height 175.26 cm Erick Neche MEDICAL BILLING INSTRUCTOR-C Work Phone: [facility] 03-09-2025 10:29-0400 Body mass index (BMI) [Ratio] 50.1 kg/m2 Erick Brooks MEDICAL BILLING INSTRUCTOR-C Work Phone: [facility] 03-09-2025 10:29-0400 Body weight 154.1 kg Erick Neche MEDICAL BILLING INSTRUCTOR-C Work Phone: [facility] 03-09-2025 10:22-0400 Diastolic blood pressure 58 mm[Hg] Erick Brooks MEDICAL BILLING INSTRUCTOR-C Work Phone: [facility] 03-09-2025 10:22-0400 Systolic blood pressure 122 mm[Hg] Erick Brooks MEDICAL BILLING INSTRUCTOR-C Work Phone: [facility] 03-09-2025 10:19-0400 Body temperature 97.5 [degF] Erick Neche MEDICAL BILLING INSTRUCTOR-C Work Phone: [facility] 03-09-2025 10:19-0400 Respiratory rate 18 /min Erick Brooks MEDICAL BILLING INSTRUCTOR-C Work Phone: [facility] 03-09-2025 08:55-0400 Body height 175.26 cm Erick Neche MEDICAL BILLING INSTRUCTOR-C Work Phone: [facility] 03-09-2025 08:54-0400 Body mass index (BMI) [Ratio] 50.1 kg/m2 Erick Brooks MEDICAL BILLING INSTRUCTOR-C Work Phone: [facility] 03-09-2025 08:54-0400 Body weight 153.93 kg Erick Neche MEDICAL BILLING INSTRUCTOR-C Work Phone: [facility] 03-09-2025 08:54-0400 Diastolic blood pressure 85 mm[Hg] Erick Neche MEDICAL BILLING INSTRUCTOR-C Work Phone: [facility] 03-09-2025 08:54-0400 Systolic blood pressure 136 mm[Hg] Erick Neche MEDICAL BILLING INSTRUCTOR-C Work Phone: [facility] 02-22-2025 10:03-0400 Body height 175.26 cm Erick Brooks MEDICAL BILLING INSTRUCTOR-C Work Phone: [facility] 02-22-2025 10:03-0400 Body mass index (BMI) [Ratio] 49.9 kg/m2 Erick Brooks MEDICAL BILLING INSTRUCTOR-C Work Phone: [facility] 02-22-2025 10:03-0400 Body weight 153.34 kg Erick Neche MEDICAL BILLING INSTRUCTOR-C Work Phone: [facility] 02-22-2025 10:03-0400 Diastolic blood pressure 76 mm[Hg] Erick Neche MEDICAL BILLING INSTRUCTOR-C Work Phone: [facility] 02-22-2025 10:03-0400 Systolic blood pressure 132 mm[Hg] Erick Brooks MEDICAL BILLING INSTRUCTOR-C Work Phone: [facility] 02-07-2025 09:25-0400 Body height 175.26 cm Erick Brooks MEDICAL BILLING INSTRUCTOR-C Work Phone: [facility] 02-07-2025 09:25-0400 Body mass index (BMI) [Ratio] 49 kg/m2 Erick Neche MEDICAL BILLING INSTRUCTOR-C Work Phone: [facility] 02-07-2025 09:25-0400 Body weight 150.59 kg Erick Brooks MEDICAL BILLING INSTRUCTOR-C Work Phone: [facility] 02-07-2025 09:25-0400 Diastolic blood pressure 71 mm[Hg] Erick Rodriguez MEDICAL BILLING INSTRUCTOR-C Work Phone: [facility] 02-07-2025 09:25-0400 Systolic blood pressure 107 mm[Hg] Erick Smithtings MEDICAL BILLING INSTRUCTOR-C Work Phone: [facility] 01-24-2025 08:40-0400 Body height 175.[address] Aye Dey DO Work Phone: [facility] 01-24-2025 08:30-0400 Body mass index (BMI) [Ratio] 48.9 kg/m2 Dr. Aye Dey DO Work Phone: [facility] 01-24-2025 08:30-0400 Body weight 150.[address] Aye Dey DO Work Phone: [facility] 01-24-2025 08:30-0400 Diastolic blood pressure 72 mm[Hg] Dr. Aye Dey DO Work Phone: [facility] 01-24-2025 08:30-0400 Systolic blood pressure 124 mm[Hg] Dr. Aye Dey DO Work Phone: [facility] 01-12-2025 09:43-0400 Body height 175.26 cm Greg LUIM Work Phone: [facility] 01-12-2025 09:43-0400 Body mass index (BMI) [Ratio] 48.4 kg/m2 Greg LUIM Work Phone: [facility] 01-12-2025 09:43-0400 Body weight 149 kg Greg LUIM Work Phone: [facility] 01-12-2025 09:43-0400 Diastolic blood pressure 82 mm[Hg] Greg LUIM Work Phone: [facility] 01-12-2025 09:43-0400 Systolic blood pressure 130 mm[Hg] Greg LUIM Work Phone: [facility] 12-16-2024 09:30-0400 Body height 175.26 cm Greg Rich CNM Work Phone: [facility] 12-16-2024 09:06-0400 Body mass index (BMI) [Ratio] 47.2 kg/m2 Greg Rich CNM Work Phone: [facility] 12-16-2024 09:06-0400 Body weight 145.14 kg Greg Rich CNM Work Phone: [facility] 12-16-2024 09:06-0400 Diastolic blood pressure 69 mm[Hg] Greg Rich CNM Work Phone: [facility] 12-16-2024 09:06-0400 Systolic blood pressure 119 mm[Hg] Greg Rich CNM Work Phone: [facility] 11-17-2024 08:40-0400 Body height 175.26 cm Greg Rich CNM Work Phone: [facility] 11-17-2024 08:40-0400 Body mass index (BMI) [Ratio] 46.8 kg/m2 Greg Rich CNM Work Phone: [facility] 11-17-2024 08:40-0400 Body weight 144.01 kg Greg Rich CNM Work Phone: [facility] 11-17-2024 08:40-0400 Diastolic blood pressure 80 mm[Hg] Greg Rich CNM Work Phone: [facility] 11-17-2024 08:40-0400 Systolic blood pressure 126 mm[Hg] Greg Rich CNM Work Phone: [facility] 10-22-2024 10:18-0400 Body mass index (BMI) [Ratio] 46 kg/m2 Greg LUIM Work Phone: [facility] 10-22-2024 10:18-0400 Body weight 141.57 kg Greg Rich CNM Work Phone: [facility] 10-22-2024 10:18-0400 Diastolic blood pressure 76 mm[Hg] Greg LUIM Work Phone: [facility] 10-22-2024 10:18-0400 Systolic blood pressure 119 mm[Hg] Greg LUIM Work Phone: [facility] 09-23-2024 09:08-0400 Body height 175.26 cm Greg Rich CNM Work Phone: [facility] 09-23-2024 09:05-0400 Body mass index (BMI) [Ratio] 45.6 kg/m2 Greg Rich CNM Work Phone: [facility] 09-23-2024 09:05-0400 Body weight 140.27 kg Greg Rich CNM Work Phone: [facility] 09-23-2024 09:05-0400 Diastolic blood pressure 67 mm[Hg] Greg Rich CNM Work Phone: [facility] 09-23-2024 09:05-0400 Systolic blood pressure 121 mm[Hg] Greg Rich CNM Work Phone: [facility] Encounters Encounter Date Encounter Type Care Provider Facility Start: 04-11-2025 ambulatory Delmar Almanzar lity:[facility] Start: 03-31-2025 End: 03-31-2025 ambulatory Delmar Luna Facility:[facility] Start: 03-30-2025 Non-patient / Non-visit Dr. Fiordaliza Zhong MD -[facility] Start: 03-29-2025 Non-patient / Non-visit Greg Rich CNM -[facility] Start: 03-28-2025 Non-patient / Non-visit Dr. Fiordaliza Zhong MD -[facility] Start: 03-28-2025 ambulatory Fiordaliza Almanzar lity:BMS Start: 03-28-2025 End: 03-30-2025 Evaluation and management of inpatient Dr. Fiordaliza Zhong MD -[facility] [place] [facility] Work Phone: Start: 03-27-2025 ambulatory Fiordaliza Almanzar lity:BMS Start: 03-27-2025 Non-patient / Non-visit Dr. Fiordaliza Zhong MD -[facility] Start: 03-24-2025 Non-patient / Non-visit Dr. Fiordaliza Zhong MD -[facility] Start: 03-24-2025 End: 03-24-2025 ambulatory Erick Rodriguez MEDICAL BILLING INSTRUCTOR-C Work Phone: -[facility] Start: 03-24-2025 End: 03-24-[address] Fiordaliza Zhong MD -[facility] Work Phone: Start: 03-21-2025 End: 03-21-2025 ambulatory [facility] Start: 03-21-2025 End: 03-21-2025 ambulatory [facility] Start: 03-21-[address] Fiordaliza Zhong MD -Laboratory Specimen Work Phone: Start: 03-21-2025 End: 03-21-2025 ambulatory Erick Rodriguez MEDICAL BILLING INSTRUCTOR-C Work Phone: -[facility] Start: 03-21-2025 End: 03-21-[address] Fiordaliza Zhong MD -[facility] Work Phone: Start: 03-21-2025 End: 03-21-2025 ambulatory Fiordaliza Zhong Facility:[facility] Start: 03-17-2025 End: 03-17-2025 ambulatory [facility] Start: 03-16-2025 End: 03-16-2025 ambulatory AYE Alicia [facility] Start: 03-15-2025 Non-patient / Non-visit Dr. Fiordaliza Zhong MD -[facility] Start: 03-15-2025 End: 03-15-2025 ambulatory Erick Rodriguez MEDICAL BILLING INSTRUCTOR-C Work Phone: -[facility] Start: 03-15-2025 End: 03-15-[address] [facility]ordal[facility] Work Phone: Start: 03-11-2025 End: 03-11-2025 ambulatory GREG Kodak LAYLA [facility] Start: 03-09-2025 ambulatory Damienrosy Luna Jenelle knighty:BMS Start: 03-09-2025 Non-patient / Non-visit Dr. Aye Dey DO -[facility] Start: 03-09-2025 End: 03-09-[address] Aye Dey DO -[facility] Work Phone: Start: 03-09-2025 End: 03-09-2025 ambulatory Erick Rodriguez MEDICAL BILLING INSTRUCTOR-C Work Phone: -[facility] Start: 03-07-2025 End: 03-07-2025 ambulatory COSTA CARDPark [facility] Start: 02-22-2025 End: 02-22-2025 Patient encounter procedure Greg Rich [facility] -[facility] Work Phone: Start: 02-22-2025 End: 02-22-2025 ambulatory Erick Rodriguez MEDICAL BILLING INSTRUCTOR-C Work Phone: -[facility] Start: 02-07-2025 End: 02-07-[address] Aye Dey DO -[facility] Work Phone: Start: 02-07-2025 End: 02-07-2025 ambulatory Erick Rodriguez MEDICAL BILLING INSTRUCTOR-C Work Phone: -[facility] Start: 01-25-2025 End: 01-25-[address] Aye Dey DO Work Phone: -Laboratory Start: 01-25-2025 End: 01-25-2025 Patient encounter procedure Erick Rodriguez MEDICAL BILLING INSTRUCTOR-C -Laboratory Work Phone: Start: 01-24-2025 End: 01-24-2025 Patient encounter procedure Erick Rodriguez MEDICAL BILLING INSTRUCTOR-C -[facility] Work Phone: Start: 01-24-2025 End: 01-25-[address] Aye Dey DO Work Phone: -[facility] Start: 01-24-2025 End: 01-24-2025 ambulatory Erickpatti Arguetas Facility:[facility] Start: 01-12-2025 End: 01-12-2025 Patient encounter procedure Erick Rodriguez MEDICAL BILLING INSTRUCTOR-C -[facility] Work Phone: Start: 01-12-2025 End: 01-12-2025 ambulatory Greg LUIM Work Phone: -[facility] Start: 12-16-2024 End: 12-16-[address] Fiordaliza Zhong MD -[facility] Work Phone: Start: 12-16-2024 End: 12-16-2024 ambulatory Greg Rich CNM Work Phone: [facility] Work Phone: Start: 11-23-2024 End: 11-23-2024 ambulatory GREG RICH [facility] Start: 11-17-2024 End: 11-17-2024 Patient encounter procedure Erick Rodriguez MEDICAL BILLING INSTRUCTOR-C -[facility] Work Phone: Start: 11-17-2024 End: 11-17-2024 ambulatory Greg Rich CNM Work Phone: [facility] Work Phone: Start: 11-17-2024 End: 11-17-2024 ambulatory Erickpatti Arguetas Facility:[facility] Start: 10-22-2024 End: 10-22-[address] Aye Dey DO -[facility] Work Phone: Start: 10-22-2024 End: 10-22-2024 ambulatory Aye Dey Facility:[facility] Start: 10-04-2024 End: 10-04-2024 ambulatory Greg Rich CNM Work Phone: [facility] Work Phone: Start: 10-04-2024 End: 10-04-[address] Aye Dey DO -Lab, [facility] Start: 10-04-2024 End: 10-04-2024 ambulatory Aye Dey Facility:[facility] Start: 09-23-2024 End: 09-23-2024 Patient encounter procedure Greg LUIM -[facility] Work Phone: Start: 09-23-2024 End: 09-23-2024 ambulatory Greg LUIM Work Phone: [facility] Work Phone: Start: 09-23-2024 End: 09-23-2024 ambulatory Greg Rich Facility:[facility] Start: 03-06-2023 End: 03-06-2023 ambulatory [facility] Work Phone: Start: 03-06-2023 End: 03-06-2023 [facility] Start: 02-19-2022 End: 02-19-2022 Patient encounter procedure [facility] Procedures Date Procedure Procedure Detail Performing Clinician Start: 03-28-2025 Serologic test for syphilis Erick briceño MEDICAL BILLING INSTRUCTOR-C Work Phone: Start: 03-21-2025 Beta-hemolytic Streptococcus culture Erick Rodriguez MEDICAL BILLING INSTRUCTOR-C Work Phone: Start: 01-24-2025 Serologic test for syphilis Dr. Aye Dey DO Work Phone: Start: 11-17-2024 Procedure Greg Rich CNM Work Phone: Comment on above: Test Ordered: [id number] AFP, Serum, Open Sp jeb BifidaResults Report [...] Open Spina Bifida RiskFor further inquiries contact [facility] at [phone].This test was developed and its performance characteristicsdetermined by [employer]. It has not been cleared or approvedby the Food and Drug Administration.Performed at: TG - achvrrp [id number] [place], [place] [id number] Director: Cara Lanza [facility], Phone: [phone] at: CB - LabBannerman[facility] [address] [id number] Director: Jake eFrreira PhD, Phone: [phone] Test Ordered: [id number] AFP, Serum, Open Spina BifidaResults Comment TG Reference Range: .The MOM and risk factors of this report have been modifiedbased on new information supplied to us by the client ortheir designated financial services representative.The Weight was changed from Not provided. [...] Open Spina Bifida RiskFor further inquiries contact [facility] [facility] at [phone].This test was developed and its performance characteristicsdetermined by [employer]. It has not been cleared or approvedby the Food and Drug Administration.Performed at: - achvr [id number] Alfredo [facility], [facility], [place] [id number] Director: Cara Lanza [facility], Phone: [phone] at: [address] [id number] Director: Jake Ferreira PhD, Phone: [phone] reported result: COMMENT Edited by: GISELA on 11/23/24:1609 AMENDED REPORT 11/23/24 1609 [facility] [place]. previously reported as: COMMENT Test Ordered: [id number] AFP, Serum, Open Spina BifidaResults Report TG [...] Open Spina Bifida RiskFor further inquiries contact [facility] at [phone].This test was developed and its performance characteristicsdetermined by [employer]. It has not been cleared or approvedby the Food and Drug Administration.Performed at: [facility] Remind [id number] Alfredo [facility], [facility], [place] [id number] Director: Cara Lanza [facility], Phone: [phone] at: [facility] Lab[address] [id number] Director: Jake Ferreira PhD, Phone: [phone] Start: 10-04-2024 Procedure Greg Rich [facility] Work Phone: Start: 09-23-2024 Liquid based cervical cytology screening Greg Rich [facility] Work Phone: Comment on above: NEGATIVE FOR INTRAEPITHELIAL LESION OR M ALIGNANCY. This liquid based Th inPrep(R) pap test was screened withthe use of an image guided system. Start: 09-23-2024 Urine culture Greg Rich [facility] Work Phone: Start: 09-23-2024 Hepatitis C antibody measurement Greg collazo [facility] Work Phone: Comment on above: Reactive: Presumptive evidence of antibo dies to HCV. Follow CDC recommendations for supplemental testing.Non-Reactive: Antibodies to HCV were not detected; does not exclude the possibility of exposure to HCVReactive Results are presumptive evidence of antibodies to HCV. Follow CDC recommendations for supplemental testing.Order confirmation testing: HCV Quant by PCR testing - HCVPCR #[id number] Non Reactive: < 0.8 Equivocal: >/= 0.8 to < 1.0 Reactive: >/= 1.0The CDC requires that a reactive/equivocal HCV antibody result be sent out for confirmation. HCV Quant by PCR testing. Start: 09-23-2024 Procedure Greg Rich [facility] Work Phone: Start: 09-23-2024 Rubella IgG measurement Greg Rich [facility] Work Phone: Comment on above: Antibody Result: InterpretationNon-React macario: Non-ImmuneReactive: ImmuneThe following results were obtained with the [employer] Rubella IgG assay. Results from assays of other manufacturers cannot be used interchangeably. Start: 09-23-2024 Serologic test for syphilis Greg [facility] Work Phone: Plan of Treatment Date Care Activity Detail Author Start: 03-30-2025 Patient discharge [facility] Start: 03-29-2025 Application of abdom inal corset [facility] Start: 03-28-2025 End: 03-29-2025 [facility] Start: 03-28-2025 Administration of bl ood product [facility] Start: 03-28-2025 Administration of bl ood product [facility] Start: 03-28-2025 Ambulation therapy management [facility] Start: 03-28-2025 Application of device [facility] Start: 03-28-2025 End: 03-28-2025 Application of intermittent pneumatic compression device [facility] Start: 03-28-2025 Assessment of risk o f venous thromboembolism [facility] Start: 03-28-2025 Catheterization of vein [facility] Start: 03-28-2025 Continuous pulse oximetry [facility] Start: 03-28-2025 Deep breathing and c oughing exercises [facility] Start: 03-28-2025 Exercises [facility] Start: 03-28-2025 Measuring intake and output [facility] Start: 03-28-2025 Notification of physician [facility] Start: 03-28-2025 Oxygen therapy [facility] Start: 03-28-2025 Procedure discontinued [facility] Start: 03-28-2025 Provision of activit y privileges [facility] Start: 03-28-2025 Skin care [facility] Start: 03-28-2025 Vital signs measurements [facility] Start: 03-28-2025 Wound care [facility] Start: 03-28-2025 Application of abdom inal corset [facility] Start: 03-28-2025 section Primary C Sec tion (Not Applicable) [facility] Start: 03-28-2025 Admission procedure [facility] Start: 03-24-2025 Patient discharge [facility] Start: 03-15-2025 Nonstress test [facility] Start: 03-15-2025 Obstetric monitoring [facility] Start: 03-15-2025 Vital signs measurements [facility] Start: 03-15-2025 [facility] Start: 03-15-2025 Patient discharge [facility] Start: 03-09-2025 Nonstress test [facility] Start: 03-09-2025 Obstetric monitoring [facility] Start: 03-09-2025 Vital signs measurements [facility] Start: 03-09-2025 [facility] Start: 03-09-2025 Patient discharge [facility] Start: 01-24-2025 CBC W Auto Different ial panel - Blood [facility] Start: 01-24-2025 Measurement of gluco se 2 hours after glucose challenge for glucose tolerance test [facility] Start: 01-24-2025 Serologic test for syphilis [facility] Start: 01-24-2025 [facility] CBC W Auto Different ial panel - Blood [facility] Erythrocyte mean cor puscular volume determination [facility] Hematocrit [Volume F raction] of Blood [facility] Hemoglobin [Mass/vol ume] in Blood [facility] Leukocytes [#/volume ] in Blood [facility] Mean corpuscular hem oglobin concentration determination [facility] Mean corpuscular hem oglobin determination [facility] Measurement of gluco se 2 hours after glucose challenge for glucose tolerance test [facility] Neutrophil count [facility] Neutrophil percent differential count [facility] Patient Education [facility] Work Phone: Platelets [#/volume] in Blood [facility] Red blood cell count [facility] Red cell distributio n width determination [facility] Serologic test for syphilis [facility] Streptococcus agalac tiae [Presence] in Unspecified specimen by Organism specific culture [facility] Immunizations Immunization Date Immunization Notes Care Provider Dwayne samson 01-24-2025 tetanus toxoid, redu lashon diphtheria toxoid, and acellular pertussis vaccine, adsorbed Dr. Aye Dey DO Work Phone: [facility] 01-12-2021 tetanus toxoid, redu lashon diphtheria toxoid, and acellular pertussis vaccine, adsorbed [facility] Payers Date Payer Category Payer Self-pay [id number] [id number] Unknown [id number] 1989 Unknown [id number] 2.16.840.1.194979.3.579.2.479 1989 Unknown [id number] 2.16.840.1.488961.3.579.2.479 1989 Unknown [id number] 2.16.840.1.786969.3.579.2.479 1989 Unknown [id number] 2.16.840.1.342846.3.579.2.479 1989 Unknown [id number] 2.16.840.1.378357.3.579.2.479 1989 Unknown [id number] 2.16.840.1.175249.3.579.2.479 1989 Unknown [id number] 2.16.840.1.794835.3.579.2.479 1989 Unknown [id number] 2.16.840.1.129103.3.579.2.479 Unknown [id number] Unknown [id number] Unknown [id number] Unknown [facility] 880 * * DO NOT USE [id number] Unknown [id number] 2.16.840.1.084182.3.579.2.462 Unknown [id number] 2.16.840.1.173386.3.579.2.462 Unknown [id number] 2.16.840.1.382511.3.579.2.462 Unknown [id number] 2.16.840.1.073888.3.579.2.462 Unknown [id number] 2.16.840.1.695266.3.579.2.462 Unknown [id number] 2.16.840.1.669791.3.579.2.462 Unknown [id number] 2.16.840.1.123780.3.579.2.462 Unknown [id number] 2.16.840.1.815602.3.579.2.462 Unknown [id number] 2.16.840.1.290901.3.579.2.462 Unknown [id number] 2.16.840.1.687518.3.579.2.462 Unknown [id number] 2.840.1.980435.3.579.2.462 Unknown [id number] 2..840.1.811851.3.579.2.462 Unknown [id number] 2.840.1.127044.3.579.2.462 Unknown [id number] 2.840.1.896525.3.579.2.462 Unknown [id number] 2.840.1.502355.3.579.2.462 Unknown [id number] 2.16.840.1.333683.3.579.2.462 Unknown [id number] 2.840.1.642762.3.579.2.462 Unknown [id number] 2.840.1.303271.3.579.2.462 Unknown [id number] 2.16.840.1.566658.3.579.2.462 Unknown [id number] 2.16840.1.794397.3.579.2.462 Unknown [id number] 2.16.840.1.984503.3.579.2.462 Unknown [id number] 2.16.840.1.742083.3.579.2.462 Unknown [id number] 2.840.1.959601.3.579.2.462 Unknown [id number] 2.16.840.1.942367.3.579.2.462 Unknown [id number] 2.16.840.1.199520.3.579.2.462 Unknown [id number] 2.16.840.1.804488.3.579.2.462 Unknown [id number] 2.16.840.1.224233.3.579.2.462 Unknown [id number] 2.16840.1.640402.3.579.2.462 Unknown [id number] 2.16.840.1.131547.3.579.2.462 Unknown [id number] 2.840.1.286070.3.579.2.462 Unknown [id number] 2.840.1.286356.3.579.2.462 Social History Date Type Detail Facility Start: 05-30-2021 Tobacco smoking stat [facility] Unknown if ever smoked [facility] Start: 1990 Sex Assigned At Female W [facility] Start: 09-14-2024 End: 03-28-2025 Tobacco smoking status SDIS Ex-smoker (finding) [facility] Start: 10-04-2024 End: 10-09-2024 Sex Female (finding) [facility] Patient currentl y [facility] Medical Equipment Procedure Code Equipment Code Equipment Origin al Text Equipment Identifier Dates Blood Sugar Diagnostic (Advanced Gluc Meter Test Strip) strip Start: 03-07-2025 Lancets [facility] Start: 03-07-2025 Blood [...] 03-30-2025 Functional status Activity Ability Indepe ndent [facility] Work Phone: Mental Status Date Assessment Result Facility 03-28-2025 Cognitive function Level Of Consciousness Awake [facility] Work Phone: Clinical Notes 09-23-2024 to 03-30-2025 Note Date & Type Note Facility 03-30-2025 Progress note [facility] 03-30-2025 Discharge summary Note Date/Time March 30, 2025 3:11pm [facility] Medical Records Department [address] [place] [address] Instructions for Home/Discharge Instructions 03/28/25 0719 MR#: [id number] Acct: [id number] Name: DEMETRIUS FERNANDES Rep #:[id number] : 1990 34 From: Fiordaliza moctezuma MD [...] Up With: Fiordaliza Zhong MD When: Call [phone] to make an appointment for an incision [...] mg PO DAILY (DME) FreeStyle Hardeep 2 [place] Misc See Rx Instructions .ROUTE .MEDSUPPLY Qty: [...] CC: Dr. Delmar Luna MD ~ Signed [facility] Work Phone: 1(275) 843-321909-17-2025 Discharge summary [facility] Medical Records Department [address] [place] [address] Instructions for Home/Discharge Instructions 03/28/25 0719 MR#: [id number] Acct: [id number] Name: DEMETRIUS FERNANDES Rep #:[id number] : 1990 34 From: Fiordaliza moctezuma MD [...] Up With: Fiordaliza Zhong MD When: Call [phone] to make an appointment for an incision [...] mg PO DAILY (DME) FreeStyle Hardeep 2 [place] Misc See Rx Instructions .ROUTE .MEDSUPPLY Qty: [...] CC: Dr. Delmar Luna MD ~ Signed [facility]09-17-2025 Progress note Author Fiordaliza Zhong [facility] Note Date/Time March 30, 2025 5:41pm [facility] Medical Records Department [address] [place] [address] Progress Note - OBGYN 03/30/25 0758 MR#: [id number] Acct: [id number] Name: DEMETRIUS FERNANDES Rep #:[id number] : 1990 34 From: Fiordaliza moctezuma MD PCP: Dr. Delmar Luna MD Status :ADM IN Location: [place] [address] Subjective Subjective Patient doing well without complaints. [...] Cosigner Signature (if applicable): CC: ~ Signed [facility] Work Phone: 1(614) 159-921509-17-2025 Procedure note [facility] Medical Records Department [address] [place] [address] Operative Report 03/28/25 0716 MR#: [id number] Acct: [id number] Name: DEMETRIUS FERNANDES Rep #:[id number] : 1990 34 From: Fiordaliza moctezuma MD PCP: Dr. Delmar Luna MD Status :ADM IN Location: [id number] Assessment & Plan (1) Pre-existing severe obesity [...] twice weekly ANFS-BPP and NST. Consult with [facility] ordered. deliver at 37 weeks scheduled for [...] Description: 3 Vessels Delayed Cord Clamping: Yes Emr Trainer director of program management: Yes Director Of Software Development: Catracho Davison Tasks completed by special ed assistant: Opening & closing, Retracting and Other (assisting in deliveryof the ) Additional dental ceramist assistant?: No Complications Complications: No Admit VTE Documentation VTE Present on Admission: No VTE Mechan Device Prophylaxis: SCD's Procedures Urinary/Genital 52xxx-59xxx: 03254 Delivery global pk 03/30/25 0800 Cosigner Signature (if applicable): CC: Dr. Delmar Luna MD; Dr. Fiordaliza Zhong MD~ Signed [facility]09-16-2025 Progress note Author Greg Rich [facility] Note Date/Time March 29, 2025 8:21am [facility] Medical Records Department [address] [place] [address] Progress Note - OBGYN 03/29/25 0818 MR#: [id number] Acct: [id number] Name: DEMETRIUS FERNANDES Rep #:[id number] : 1990 34 From: Greg Rich CNM PCP: Dr. Delmar Luna MD Status :ADM IN Location: [id number] Subjective Subjective Patient doing well without complaints. [...] Cosigner Signature (if applicable): CC: ~ Signed [facility] Work Phone: 1(677) 190-362909-16-2025 Progress note [facility] Medical Records Department [address] [place] [address] Progress Note - OBGYN 03/29/25817 MR#: [id number] Acct: [id number] Name: DEMETRIUS FERNANDES Rep #:[id number] : 1990 34 From: Greg Rich CNM PCP: Dr. Delmar Luna MD Status :ADM IN [facility] Subjective Subjective Patient doing well without complaints. [...] Cosigner Signature (if applicable): CC: ~ Signed [facility]09-14-2025 History and physical note Author Fiordaliza Zhong [facility] Note Date/Time March 27, 2025 12:28pm [facility] Medical Records Department [address] [place] [address] History & Physical Exam 03/27/25 1227 MR#: [id number] Acct: [id number] Name: DEMETRIUS FERNANDES Rep #:[id number] : 1990 34 From: Fiordaliza moctezuma MD PCP: Dr. 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 [facility] anatomy order placed 10/22/24-?-?-?-?-?-?-?-?-?-?-?-?- 14w 5d 312 lb 2 oz(+3 lb 2 oz) 119/76 Negative -?-?-?-?-?-?-?--?-?-?-?-?- Negative 168 -?-?-?-?-?-?-?-?-?-?-?-?- JV- nipt was inconclusive. plan for afp between 17-21 weeks. anatomy scan with [facility]. 11/17/24-?-?-?-?-?-?-?-?-?-?-?-?- 18w 3d 317 lb 8 oz(+8 [...] Luna MD; Dr. Fiordaliza Zhong MD~ Signed [facility] Work Phone: 1(784) 337-566509-14-2025 History and physical note [facility] Medical Records Department [address] [place] [address] History & Physical Exam 03/27/25 1227 MR#: [id number] Acct: [id number] Name: DEMETRIUS FERNANDES Rep #:[id number] : 1990 34 From: Fiordaliza moctezuma MD PCP: Dr. 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 Electrical Appliance Repairer Required: No Is patient in pain?: No [...] ea 03/07/25 03/24/25 Rx (FreeStyle Hardeep 2 [place]) lancets #200 ea 03/07/25 03/24/25 Rx Last [...] occupational status: employed and unemployed current occupation: [employer] current occupational exposures/hazards: No pets and animals: [...] additional social history: - Froilan GUARDADON @ [facility] 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 Date Name GA/Weeks Outcome Route Bth Weight Infant Gen Labor Lgth Anesthesia Del Locatn Provider FOB 04/14/21 Timmy 41 live - full term 8#2oz Mal e epidural [facility] GP Froilan Delivery Date: 04/14/21 [...] Symptoms of Preeclampsia, Infant Feeding No , [employer] Medical Leave or Disability [...] General: cooperative, healthy appearing, comfortable and anxious [facility] Head: normal to inspection Nose: external [...] 36. plan RLTCS 37 weeks recommend by [facility] due to polyhydramnios severe 03/27/25 1228 Cosigner Signature (if applicable): CC: Dr. Delmar Luna MD; Dr. Fiordaliza Zhong MD~ Signed [facility]09-14-2025 [facility] Medical Records Department [address] [facility] [place] [address] History Physical Exam 03/27/25 1227 MR#: [id number] Acct: [id number] Name: DEMETRIUS FERNANDES Rep #: [id number] : 1990 34 From: Fiordaliza Zhong MD PCP: Dr. Delmar Luna MD Status:PRE IN Location: [facility] History and Physical Date of Admission: 03/28/25 Vital Signs 03/24/2509:10 03/24/2510:26 Height 5 ft 9 in 5 ft 9 in Weight: 345 lb 9 oz BMI 51.0 BP 132/76 H Intake Visit Reasons: 37wk ob before csection *per SM Electrical Appliance Repairer Required: No Is patient in pain?: No [...] ea 03/07/25 03/24/25 Rx (FreeStyle Hardeep 2 [place]) lancets #200 ea 03/07/25 03/24/25 Rx Last [...] occupational status: employed and unemployed current occupation: [employer] current occupational exposures/hazards: No pets and animals: [...] 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 Date Name GA/Weeks Outcome Route Bth Weight Infant Gen Labor Lgth Anesthesia Del [facility] Provider FOB 04/14/21 [place] 41 live - full term 8#2oz Male epidura l [facility] GP Froilan Delivery Date: 04/14/21 [...] Pres Dilation -???-???-???-???-???-???-???-???-???-???-???-???- Effaced (more content not included)...[facility]09-11-[address] [facility] [address] [place] [address], [address] [place] [address] OFFICE VISIT Date of Service: 03/24/25 MR#: [id number] Acct: [id number] Name: DEMETRIUS FERNANDES Rep #: [id number] : 1990 Provider: Dr. 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 Date Name GA/Weeks Outcome Route Bth Weight Infant Gen Labor Lgth Anesthesia Del Locatn Provider FOB 04/14/21 Timmy 41 live - full term 8#2oz Male epidur al [facility] GP Froilan Delivery Date: 04/14/21 [...] NIPT-very concerned about weight with this . [facility] anatomy order placed 10/22/24 -?-?-?-?-?-?-?-?-?-?-?-?- 14w 5d 312 lb 2 oz (+3 lb 2 oz) 119/76 Negative -?-?-?-?-?-?-?-?-?-?-?-?- Negative 168 -?-?-?-?-?-?-?-?-?-?-?-?- JV- nipt was inc onclusive. plan for afp between 17-21 weeks. anatomy scan with [facility]. 11/17/24 -?-?-?-?-?-?-?-?-?-?-?-?- 18w 3d 317 lb 8 [...] higinio MEDINA> Date _ [facility]ordaliza Zhong MD [facility] Signature: Date (if applicable) CC: ~ [facility]09-11-2025 Progress note [facility] Medical Records Department [address] [place] [address] OB Triage Progress Note 03/24/25 1004 MR#: [id number] Acct: [id number] Name: DEMETRIUS FERNANDES Rep #:[id number] : 1990 34 From: Fiordaliza moctezuma MD PCP: Dr. Delmar Luna MD Status :REG CLI Y DOS: Location: [place] [address] Progress Notes Date of Service: 03/24/25 Progress Note: Patient presents for triage evaluation secondary to polyhydramnios FHT: 135 Moderate variability reactive no decelerations category I tracing Alvarado: no regular Contractions Assessment and plan: 36 weeks severe polyhydramnios Reactive NST, reassuring maternal and status patient discharged to home to follow-up as scheduled. See problem list details for additional plan information. Charges/Coding Procedures Urinary/Genital 52xxx-59xxx: 92801-57 non-stress test Interp 03/24/25 Cleo sylvester MD> Date _ Fiordaliza Zhong MD Cosigner Signature (if applicable): Date CC: Dr. Delmar Luna MD; Dr. Fiordaliza Zhong MD ~ Signed [facility]09-08-2025 Progress [facility] [address], [address] [place] [address] OFFICE VISIT Date of Service: 03/21/25 MR#: [id number] Acct: [id number] Name: DEMETRIUS FERNANDES Rep #: [id number] : 1990 Provider: Dr. 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 Appliance Repairer Required: No Is patient in pain?: No [...] ea 03/07/25 03/21/25 Rx (FreeStyle Hardeep 2 [place]) lancets #200 ea 03/07/25 03/21/25 Rx Last [...] unemployed current occupation: [employer] current occupational exposures/hazards: No pets and animals: [...] home: Yes additional social history: - 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 Date Name GA/Weeks Outcome Route Bth Weight Gen Labor Lgth Anesthesia Del Locatn Provider FOB 04/14/21 [place] 41 live - full term 8#2oz Male epidur al [facility] GP Froilan Delivery Date: 04/14/21 [...] NIPT-very concerned about weight with this . [facility] anatomy order placed 10/22/24 -?-?-?-?-?-?-?-?-?-?-?-?- 14w 5d 312 lb 2 oz (+3 lb 2 oz) 119/76 Negative -?-?-?-?-?-?-?-?-?-?-?-?- Negative 168 -?-?-?-?-?-?-?-?-?-?-?-?- JV- nipt was inc onclusive. plan for afp between 17-21 weeks. anatomy scan with [facility]. 11/17/24 -?-?-?-?-?-?-?-?-?-?-?-?- 18w 3d 317 lb 8 [...] Cosign Signature: Date (if applicable) CC: ~ [facility]09-02-2025 Progress note [facility] Medical Records Department [address] [facility] [place] [address] OB Triage Progress Note 03/15/25 1110 MR#: [id number] Acct: [id number] Name: DEMETRIUS FERNANDES Rep #:[id number] : 1990 34 From: Fiordaliza moctezuma MD PCP: Dr. Delmar Luna MD Status :REG CLI Y DOS: Location: [place] [address] Progress Notes Date of Service: 03/15/25 Progress Note: Patient presents for triage evaluation secondary to polyhydramnios FHT: 130-135 Moderate variability reactive no decelerations category I tracing Alvarado: no regular Contractions Assessment and plan: polyhydramnios 35 weeks Reactive NST, reassuring maternal and status patient discharged to home to follow-up as scheudled. See problem list details for additional plan information. Charges/Coding Procedures Urinary/Genital 52xxx-59xxx: 41005-24 non-stress test Interp Assessment & Plan (1) [...] higinio MEDINA> Date _ Fiordaliza Zhong MD [facility] Signature (if applicable): Date CC: Dr. Delmar Luna MD; Dr. Fiordaliza Zhong MD ~ Signed [facility]08-12-[address] 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 Date Name GA/Weeks Outcome Route Bth Weight Infant Gen Labor Lgth Anesthesia Del Locatn Provider FOB 04/14/21 [place] 41 live - full term 8#2oz Male epidur al [facility] GP Froilan Delivery Date: 04/14/21 [...] and Symptoms of Preeclampsia, Feeding No , [employer] Medical Leave or Disability [...] Cosigner Signature: Date (if applicable) CC: ~ [facility]06-05-2025 Evaluation note* Diagnosis Onset Date Resolution Status [...] Supervision of high-risk acute March 21 10:17am [facility] Work Phone: 1(673) 727-933206-05-2025 Evaluation note* Diagnosis Onset Date Resolution Status [...] of high-risk acute March 24, 2025 10:17am [facility] Work Phone: 1([phone]) 642-128606-05-2025 Evaluation note* Diagnosis Onset Date Resolution Status [...] Pre-existing severe obesity in mother affecting acute [facility] 2024 5:47am acute March 5:47am Rh negative state in antepar caroline period acute March 28, 2025 5:47am Supervision of high-risk acute March 28, 2025 5:47am [facility] Work Phone: 1(792) 974-136206-05-[address] [facility] [address] [place] [address], [address] [place] [address] OFFICE VISIT Date of Service: 12/16/24 MR#: [id number] Acct: [id number] Name: DEMETRIUS FERNANDES Rep #: [id number] : 1990 Provider: Dr. Luther Zhong MD Age/Sex: 34/F Location: [place] Status: Signed Intake Vital Signs 09/23/24 09:08 [...] occupational status: employed and unemployed current occupation: [employer] current occupational exposures/hazards: No pets and animals: [...] home: Yes additional social history: - Froilan [facility] [facility] @ [facility] 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 Date Name GA/Weeks Outcome Route Bth Weight Infant Gen Labor Lgth Anesthesia Del Locatn Provider FOB 04/14/21 [place] 41 live - full term 8#2oz Male epidur al [facility] GP Froilan Delivery Date: 04/14/21 [...] Cosign Signature: Date (if applicable) CC: ~ [facility]05-07-2025 Evaluation note* Diagnosis Onset Date Resolution Status [...] Supervision of high-risk acute February 22 9:59am [facility] Work Phone: 1([phone]) 758-707505-07-2025 Evaluation note* Diagnosis Onset Date Resolution Status [...] Supervision of high-risk acute March 09 8:54am [facility] Work Phone: [phone]) 361-535805-07-2025 Evaluation note* Diagnosis Onset Date Resolution Status [...] Rh negative state in antepartum period acute [place], 2 025 8:54am Supervision of high-risk [...] Supervision of high-risk acute March 15, 10:20am [facility] Work Phone: 1(464) 747-497404-11-2025 Evaluation note* Diagnosis Onset Date Resolution Status [...] of high-risk acute January 24, 2025 8:22am [facility] Work Phone: 1(908) 172-451004-11-2025 Evaluation note* Diagnosis Onset Date Resolution Status [...] of high-risk acute February 07, 2025 9:17am [facility] [employer] Work Phone: [phone]) 572-438603-13-2025 NotePap Smear Specimen AdequacyMarch 2024 11:59pmComment.Satisfactory for evaluation. No endocervical component is identified.An endocervical component is not commonly seen in the patient.[facility] INTER[facility]ACED A#[id number] Health [facility] HospitalComment on above: Satisfactory for evaluation. No endocervical component is identified.An endocervical component is not commonly seen in the patient.09-23-2024 NotePap Smear Specimen AdequacyMar 2024 11:59pmComment.Satisfactory for evaluation. No endocervical component is identified.An endocervical component is not commonly seen in the patient.[facility] INTERFACED A#[id number] Valley Medical CenterComment on above:Satisfactory for evaluation. No endocervical component [...] of high-risk acute September 23, 2024 8:56am [facility] Work Phone: [phone]) [phone] Evaluation note* Diagnosis Onset Date Resolution Status [...] high-risk acute November 17, 2024 8: 37am [facility] Work Phone: 1([phone]) 261-406303-13-2025 Evaluation note* Diagnosis Onset Date Resolution Status [...] high-risk acute December 16, 2024 9 :02am [facility] Work Phone: Evaluation noteNo assessment information available [facility] Work Phone: Hospital Discharge instructionsAdditional Instructions Scheduled non-stress tests in WP: Friday, Mar.16 9am Friday, [facility]am[facility] Work Phone: Progress note Author Fiordaliza Zhong [facility] Note Date/Time December 16, 2024 9:30a m [facility] [address] [place] [address], [address] [place] [address] OFFICE VISIT Date of Service: 12/16/24 MR#: [id number] Acct: [id number] Name: DEMETRIUS FERNANDES Rep #: [id number] : 1990 Provider: Dr. Luther Zhogn MD Age/Sex: 34/F Location: [place] Status: Signed Intake Vital Signs 09/23/24 09:08 [...] occupational status: employed and unemployed current occupation: [employer] current occupational exposures/hazards: No pets and animals: [...] 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 Date Name GA/Weeks Outcome Route Bth Weight Gen Labor Lgth Anesthesia Del Locatn Provider FOB 04/14/21 [place] 41 live - full term 8#2oz Male epidur al [facility] GP Froilan Delivery Date: 04/14/21 [...] Symptoms of Preeclampsia, Infant Feeding No , [employer] Medical Leave or Disability [...] Cosigner Signature: Date (if applicable) CC: ~ [facility] Work Phone: Progress note Author Greg Layla [facility] Note Date/Time February 22, 2025 10 :18am [facility] [address] [place] [address], [address] [place] [address] OFFICE VISIT Date of Service: 02/22/25 MR#: [id number] Acct: [id number] Name: DEMETRIUS FERNANDES Rep #: [id number] : 1990 Provider: ZACHARY Rich Age/Sex: 34/F Location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 Date Name GA/Weeks Outcome Route Bth Weight Infant Gen Labor Lgth Anesthesia Del [facility] Provider FOB 04/14/21 [place] 41 live - full term 8#2oz Male epidur al [facility] GP Froilan Delivery Date: 04/14/21 [...] NIPT-very concerned about weight with this . [facility] anatomy order placed 10/22/24 -?-?-?-?-?-?-?-?-?-?-?-?- 14w 5d [...] Cosigner Signature: Date (if applicable) CC: ~ [facility] Work Phone: Progress note Author Fiordaliza Zhong [facility] Note Date/Time March 15, 2025 11:12am [facility] Medical Records Department [address] [place] [address] OB Triage Progress Note 03/15/25 1110 MR#: [id number] Acct: [id number] Name: DEMETRIUS FERNANDES Rep #:[id number] : 1990 34 From: Fiordaliza moctezuma MD PCP: Dr. Delmar Luna MD Status :REG CLI Y DOS: Location: [place] [address] Progress Notes Date of Service: 03/15/25 Progress Note: Patient presents for triage evaluation secondary to polyhydramnios FHT: 130-135 Moderate variability reactive no decelerations category I tracing Alvarado: no regular Contractions Assessment and plan: polyhydramnios 35 weeks Reactive NST, reassuring maternal and status patient discharged to home to follow-up as scheudled. See problem list details for additional plan information. Charges/Coding Procedures Urinary/Genital 52xxx-59xxx: 22261-43 non-stress test Interp Assessment & Plan (1) [...] MD; Dr. Fiordaliza Zhong MD ~ Signed [facility] Work Phone: Progress note Author Fiordaliza Zhong [facility] Note Date/Time March 21, 2025 11:06am [facility] [address] [place] [address], [address] [place] [address] OFFICE VISIT Date of Service: 03/21/25 MR#: [id number] Acct: [id number] Name: DEMETRIUS FERNANDES Rep #: [id number] : 1990 Provider: Dr. 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 Date Name GA/Weeks Outcome Route Bth Weight Infant Gen Labor Lgth Anesthesia Del [facility] Provider FOB 04/14/21 [place] 41 live - full term 8#2oz Male epidur al [facility] GP Froilan Delivery Date: 04/14/21 [...] NIPT-very concerned about weight with this . [facility] anatomy order placed 10/22/24 -?-?-?-?-?-?-?-?-?-?-?-?- 14w 5d 312 lb 2 oz (+3 lb 2 oz) 119/76 Negative -?-?-?-?-?-?-?-?-?-?-?-?- Negative 168 -?-?-?-?-?-?-?-?-?-?-?-?- JV- nipt was inc onclusive. plan for afp between 17-21 weeks. anatomy scan with [facility]. 11/17/24 -?-?-?-?-?-?-?-?-?-?-?-?- 18w 3d 317 lb 8 oz (+8 lb 8 oz) 126/80 Negative -?-?-?-?-?-?-?-?-?-?-?-?- Negative 148 -?-?-?-?-?-?-?-?-?-?-?-?- -No VB. Dao guiterrez. Denies concerns. AFP today. 12/16/24 -?-?-?-?-?-?-?-?-?-?-?-?- 22w [...] Cosigner Signature: Date (if applicable) CC: ~ [facility] Work Phone: Progress note Author Fiordaliza Zhong [facility] Note Date/Time March 24, 2025 10:05am [facility] Medical Records Department [address] [place] [address] OB Triage Progress Note 03/24/25 1004 MR#: [id number] Acct: [id number] Name: DEMETRIUS FERNANDES Rep #:[id number] : 1990 34 From: Fiordaliza moctezuma MD PCP: Dr. Delmar Luna MD Status :REG CLI Y DOS: Location: [place] [id number] Progress Notes Date of Service: 03/24/25 Progress Note: Patient presents for triage evaluation secondary to polyhydramnios FHT: 135 Moderate variability reactive no decelerations category I tracing Alvarado: no regular Contractions Assessment and plan: 36 weeks severe polyhydramnios Reactive NST, reassuring maternal and status patient discharged to home to follow-up as scheduled. See problem list details for additional plan information. Charges/Coding Procedures Urinary/Genital 52xxx-59xxx: 85031-70 non-stress test Interp 03/24/25 1005 <Electronically signed by Fiordaliza sylvester MD> Date _ Fiordaliza Zhong MD Cosigner Signature (if applicable): Date CC: Dr. Delmar Luna MD; Dr. Fiordaliza Zhong MD ~ Signed [facility] Work Phone: Progress note Author Fiordaliza Zhong [facility] Note Date/Time March 24, 2025 11:11am [facility] [address] [place] [address], [address] [place] [address] OFFICE VISIT Date of Service: 03/24/25 MR#: [id number] Acct: [id number] Name: DEMETRIUS FERNANDES Rep #: [id number] : 1990 Provider: Dr. 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 [facility] anatomy order placed 10/22/24 -?-?-?-?-?-?-?-?-?-?-?-?- 14w 5d 312 lb 2 oz (+3 lb 2 oz) 119/76 Negative -?-?-?-?-?-?-?-?-?-?-?-?- Negative 168 -?-?-?-?-?-?-?-?-?-?-?-?- JV- nipt was inc onclusive. plan for afp between 17-21 weeks. anatomy scan with [facility]. 11/17/24 -?-?-?-?-?-?-?-?-?-?-?-?- 18w 3d 317 lb 8 [...] Symptoms of Preeclampsia, Infant Feeding No , [employer] and Family Medical Leave or Disability [...] sylvester MD> Date _ Fiordaliza Zhong MD [facility] Signature: Date (if applicable) CC: ~ [employer] Work Phone: Reason for referral (narrative)No reason for referral information availableWPremier Health [facility] Work Phone: Chief Complaint and Reason for [...] 6am Rh negative state in antepartum period [facility] 2024 8:56am Spider veins of both lower extremities [facility] 2024 8:56am Supervision of high-risk September [...] [id number] 8:37am Former smoker, stopped smoking in [employer] [place] past November 17, 2024 8:37am Spider veins of both lower extremities M ay 2024 8:37am Advanced maternal age (AMA) in December 16, 2024 9:02am Pre-existing severe obesity in mother af fecting December 16, 2024 9:02am December 16, 2024 9:02a m Rh negative state in antepartum period J [facility] 2024 9:02am Supervision of high-risk December 16, [...] Rh negative state in antepartum period J [facility] 2024 8:22am Supervision of high-risk [...] Rh negative state in antepartum period J [facility] 2024 9:02am Supervision of high-risk December 16, [...] Rh negative state in antepartum period J [facility] 2024 9:17am Supervision of high-risk [...] Rh negative state in antepartum period J [facility] 2024 9:02am Supervision of high-risk December 16, 2024 9:02am Advanced maternal age (AMA) in January 12, 2025 9:40am Pre-existing severe obesity in mother af fecting January 12, 2025 9:40am January 12, 2025 9:40a m Rh negative state in antepartum period J [facility] 2024 9:40am Supervision of high-risk January 12, 2025 9:40am Advanced maternal age (AMA) in January 24, 2025 8:22am Pre-existing severe obesity in mother af fecting January 24, 2025 8:22am January 24, 2025 8:22 am Rh negative state in antepartum period J [facility] 2024 8:22am Supervision of high-risk [...] Rh negative state in antepartum period J [facility] 2024 9:02am Supervision of high-risk December 16, [...] Rh negative state in antepartum period J [facility] 2024 9:02am Supervision of high-risk December 16, [...] Rh negative state in antepartum period J [facility] 2024 8:22am Supervision of high-risk January 24, 2025 8:22am Abnormal glucose affecting Axel 2024 9:17am Advanced maternal age (AMA) in February 07, 2025 9:17am Pre-existing severe obesity in mother af fecting February 07, 2025 9:17am February 07, 2025 9:17 am Rh negative state in antepartum period J [facility] 2024 9:17am Supervision of high-risk [...] negative state in antepartum period A [facility] 2024 8:54am Supervision of high-risk Augus t [...] negative state in antepartum period A [facility] 2024 10:00am Supervision of high-risk Augus t 2024 10:00am Breech presentation March 15, 2025 10:20am Macrosomia affecting management of mothe r, antepartum March 15, 2025 10:20am Polyhydramnios affecting Septe [facility] 2024 10:20am March 15, 2025 10:20am Supervision of high-risk Septe [facility] 2024 10:20am Chief Complaint Admit [...] Rh negative state in antepartum period J [facility] 2024 9:02am Supervision of high-risk December 16, [...] Rh negative state in antepartum period J [facility] 2024 8:22am Supervision of high-risk [...] negative state in antepartum period A [facility] 2024 8:54am Supervision of high-risk Augus t [...] negative state in antepartum period A [facility] 2024 10:00am Supervision of high-risk Augus 2024 10:00am Breech presentation March 15, 2025 10:20am Macrosomia affecting management of mothe r, antepartum March 15, 2025 10:20am Polyhydramnios affecting Septe [facility] 2024 10:20am March 15, 2025 10:20am Supervision of high-risk Septe [facility] 2024 10:20am Abnormal glucose affecting [...] eptember 2024 10:17am Supervision of high-risk Septe [facility] 2024 10:17am Chief Complaint Admit [...] 2025 10:04am 37wk ob before csection *per [facility] r 2024 10:17am Reason for Visit Admit Date Advanced maternal age (AMA) in December 16, 2024 9:02am Pre-existing severe obesity in mother affecting December 16, 2024 9:02am December 16, 2024 9:02a m Rh negative state in antepartum period J [facility] 2024 9:02am Supervision of high-risk December 16, 2024 9:02am Advanced maternal age (AMA) in January 12, 2025 9:40am Pre-existing severe obesity in mother affecting January 12, 2025 9:40am January 12, 2025 9:40a m Rh negative state in antepartum period J [facility] 2024 9:40am Supervision of high-risk [...] negative state in antepartum period A [facility] 2024 9:59am Supervision of high-risk Augus t [...] negative state in antepartum period A [facility] 2024 8:54am Supervision of high-risk Augus t [...] negative state in antepartum period A [facility] 2024 10:00am Supervision of high-risk Augus t 2024 10:00am Breech presentation March 15, 2025 10:20am Macrosomia affecting management of mothe r, antepartum March 15, 2025 10:20am Polyhydramnios affecting Septe mb2024 10:20am March 15, 2025 10:20am Supervision of high-risk [facility] 2024 10:20am Abnormal glucose affecting [facility]2024 10:17am Advanced maternal age (AMA) in March 21, 2025 10:17am Breech presentation March 21, 2025 10:17am Macrosomia affecting management of mothe r, antepartum March 21, 2025 10:17am Polyhydramnios affecting [facility] 2024 10:17am Pre-existing severe obesity in mother affecting March 21, 2025 10:17am March 21, 2025 10:17am Rh negative state in antepartum period [facility]2024 10:17am Supervision of high-risk [facility] 2024 10:17am Abnormal glucose affecting [facility] 2024 10:17am Advanced maternal age (AMA) in March 24, 2025 10:17am Breech presentation March 24, 2025 10:17am Macrosomia affecting management of mothe r, antepartum March 24, 2025 10:17am Polyhydramnios affecting [facility] 2024 10:17am Pre-existing severe obesity in mother affecting March 24, 2025 10:17am March 24, 2025 10:17am Rh negative state in antepartum period [facility] 10:17am Supervision of high-risk [facility] 2024 10:17am Chief Complaint Admit Date 22wk [...] m Rh negative state in antepartum period [facility] 2024 9:02am Supervision of high-risk December 16, 2024 9:02am Advanced maternal age (AMA) in January 12, 2025 9:40am Pre-existing severe obesity in mother affecting January 12, 2025 9:40am January 12, 2025 9:40a m Rh negative state in antepartum period [facility] 2024 9:40am Supervision of high-risk January 12, 2025 9:40am Advanced maternal age (AMA) in January 24, 2025 8:22am Pre-existing severe obesity in mother affecting January 24, 2025 8:22am January 24, 2025 8:22 am Rh negative state in antepartum period [facility] 2024 8:22am Supervision of high-risk January 24, 2025 8:22am Abnormal glucose affecting Jan 9:17am Advanced maternal age (AMA) in February 07, 2025 9:17am Pre-existing severe obesity in mother affecting February 07, 2025 9:17am February 07, 2025 9:17 am Rh negative state in antepartum period [facility] 2024 9:17am Supervision of high-risk February 07, 2025 9:17am Abnormal glucose affecting Aug us2024 9:59am Advanced maternal age (AMA) in February 22, 2025 9:59am Pre-existing severe obesity in mother affecting February 22, 2025 9:59am February 22, 2025 9: 59am Rh negative state in antepartum period [facility] 2024 9:59am Supervision of high-risk Augus 2024 [...] negative state in antepartum period [facility] 2024 8:54am Supervision of high-risk Aug[facility] 2024 [...] negative state in antepartum period [facility] 2024 10:00am Supervision of high-risk Augus t [...] antepartum March 21, 2025 10:17am Polyhydramnios affecting [facility] 2024 10:17am Pre-existing severe obesity in mother affecting March 21, 2025 10:17am March 21, 2025 10:17am Rh negative state in antepartum period S [facility] 2024 10:17am Supervision of high-risk [facility] 2024 10:17am Abnormal glucose affecting [facility] 2024 10:17am Advanced maternal age (AMA) in March 24, 2025 10:17am Breech presentation March 24, 2025 10:17am Macrosomia affecting management of mothe r, antepartum March 24, 2025 10:17am Polyhydramnios affecting [facility] 2024 10:17am Pre-existing severe obesity in mother affecting March 24, 2025 10:17am March 24, 2025 10:17am Rh negative state in antepartum period S [facility] 2024 10:17am Supervision of high-risk [facility] 2024 10:17am Abnormal glucose affecting Sep [facility] 2024 5:47am Advanced maternal age (AMA) in March 28, 2025 5:47am Breech presentation March 28, 2025 5:47am delivery delivered March 282024 5:47am Macrosomia affecting management of mothe r, antepartum March 28, 2025 5:47am Polyhydramnios affecting [facility] 2024 5:47am Pre-existing severe obesity in mother affecting March 28, 2025 5:47am March 28, 2025 5:47am Rh negative state in antepartum period S [facility] 2024 5:47am Supervision of high-risk [facility] 2024 5:47am Family History No Family History [...] Will No April 13 8:08pm Power of Road Roller Engineer No April 13 021 8:08pm Advance Directive Response Recorded Date/ Time Do you have a Healthcare Power of Road Roller Engineer? No March 28, 2025 6:18am Summary Purpose [...] Status: Inactive Member Role Status Dates Dr. Aey eDy DO Attending Provider Activ e Start: October 04, 2024 End: October 04, 2024 Dr. Aye Dey , DO Referring Provider Activ e Start: October 04, 2024 End: October 04, 2024 Team Status: Inactive Member Role Status Dates Dr. Aye Dey DO Attending Provider Activ e Start: October 22, 2024 End: October 22, 2024 Team Status: Inactive Member Role Status Dates Erick Rodriguez MEDICAL BILLING INSTRUCTOR, MEDICAL BILLING INSTRUCTOR-C Attending Provider Active Start: November 17, 2024 End: November 17, 2024 Team Status: Inactive Member Role Status Dates Erick Rodriguez MEDICAL BILLING INSTRUCTOR, MEDICAL BILLING INSTRUCTOR-C Attending Provider Active Start: November 17, 2024 End: November 17, 2024 Erick Rodriguez MEDICAL BILLING INSTRUCTOR, MEDICAL BILLING INSTRUCTOR-C Referring Provider Active Start: November 17, 2024 [...] Inactive Member Role/Relationship Status Dates Erick Rodriguez MEDICAL BILLING INSTRUCTOR, MEDICAL BILLING INSTRUCTOR-C Attending Provider Active Start: November 17, 2024 End: November 17, 2024 Team Status: Inactive Member Role/Relationship Status Dates Erick Rodriguez MEDICAL BILLING INSTRUCTOR, MEDICAL BILLING INSTRUCTOR-C Attending Provider Active Start: November 17, 2024 End: November 17, 2024 Erick Rodriguez MEDICAL BILLING INSTRUCTOR, MEDICAL BILLING INSTRUCTOR-C Referring Provider Active Start: November 17, 2024 End: November 17, 2024 Team Status: Inactive Member Role/Relationship Status Dates Dr. Fiordaliza Zhong MD Attending Provider Active Start: December 16, 2024 End: December 16, 2024 Team Status: Inactive Member Role/Relationship Status Dates Erick Rodriguez MEDICAL BILLING INSTRUCTOR, MEDICAL BILLING INSTRUCTOR-C Attending Provider Active Start: January 12, 2025 [...] Inactive Member Role/Relationship Status Dates Erick Rodriguez MEDICAL BILLING INSTRUCTOR, MEDICAL BILLING INSTRUCTOR-C Attending Provider Active Start: November 17, 2024 End: November 17, 2024 Team Status: Inactive Member Role/Relationship Status Dates Erick Rodriguez MEDICAL BILLING INSTRUCTOR, MEDICAL BILLING INSTRUCTOR-C Attending Provider Active Start: November 17, 2024 End: November 17, 2024 Erick Brooks MEDICAL BILLING INSTRUCTOR, MEDICAL BILLING INSTRUCTOR-C Referring Provider Active Start: November 17, 2024 End: November 17, 2024 Team Status: Inactive Member Role/Relationship Status Dates Dr. Fiordaliza Zhong MD Attending Provider Active Start: December 16, 2024 End: December 16, 2024 Team Status: Inactive Member Role/Relationship Status Dates Erick Neche MEDICAL BILLING INSTRUCTOR, MEDICAL BILLING INSTRUCTOR-C Attending Provider Active Start: January 12, 2025 End: January 12, 2025 Team Status: Inactive Member Role/Relationship Status Dates Erick Brooks MEDICAL BILLING INSTRUCTOR, MEDICAL BILLING INSTRUCTOR-C Attending Provider Active Start: January 24, 2025 End: January 24, 2025 Team Status: Active Member Role/Relationship Status Dates Erick Rodriguez MEDICAL BILLING INSTRUCTOR, MEDICAL BILLING INSTRUCTOR-C Attending Provider Active Start: January 24, 2025 [...] Inactive Member Role/Relationship Status Dates Erick Rodriguez MEDICAL BILLING INSTRUCTOR, MEDICAL BILLING INSTRUCTOR-C Attending Provider Active Start: November 17, 2024 End: November 17, 2024 Team Status: Inactive Member Role/Relationship Status Dates Erick Neche MEDICAL BILLING INSTRUCTOR, MEDICAL BILLING INSTRUCTOR-C Attending Provider Active Start: November 17, 2024 End: November 17, 2024 Erick Brooks MEDICAL BILLING INSTRUCTOR, MEDICAL BILLING INSTRUCTOR-C Referring Provider Active Start: November 17, 2024 End: November 17, 2024 Team Status: Inactive Member Role/Relationship Status Dates Dr. Fiordaliza Zhong MD Attending Provider Active Start: December 16, 2024 End: December 16, 2024 Team Status: Inactive Member Role/Relationship Status Dates Erick Rodriguez MEDICAL BILLING INSTRUCTOR, MEDICAL BILLING INSTRUCTOR-C Attending Provider Active Start: January 12, 2025 End: January 12, 2025 Team Status: Inactive Member Role/Relationship Status Dates Erick Brooks MEDICAL BILLING INSTRUCTOR, MEDICAL BILLING INSTRUCTOR-C Attending Provider Active Start: January 24, 2025 End: January 24, 2025 Team Status: Inactive Member Role/Relationship Status Dates Erick Arguetas MEDICAL BILLING INSTRUCTOR, MEDICAL BILLING INSTRUCTOR-C Attending Provider Active Start: January 24, 2025 End: January 24, 2025 Team Status: Active Member Role/Relationship Status Dates Erick Rodriguez MEDICAL BILLING INSTRUCTOR, MEDICAL BILLING INSTRUCTOR-C Attending Provider Active Start: January 25, 2025 Erick Rodriguez MEDICAL BILLING INSTRUCTOR, MEDICAL BILLING INSTRUCTOR-C Referring Provider Active Start: January 25, 2025 Dr. Delmar Luna MD Primary Care Provider Acti ve Start: January 25, 2025 Team Status: Inactive Member Role/Relationship Status Dates Erick Arguetas MEDICAL BILLING INSTRUCTOR, MEDICAL BILLING INSTRUCTOR-C Attending Provider Active Start: January 25, 2025 End: January 25, 2025 Erick Arguetas MEDICAL BILLING INSTRUCTOR, MEDICAL BILLING INSTRUCTOR-C Referring Provider Active Start: January 25, 2025 End: January 25, 2025 Dr. Delmar Luna MD Primary Care Provider Acti ve Start: January 25, 2025 End: January 25, 2025 Team Status: Inactive Member Role/Relationship Status Dates Erick Rodriguez MEDICAL BILLING INSTRUCTOR, MEDICAL BILLING INSTRUCTOR-C Attending Provider Active Start: January 25, 2025 End: January 25, 2025 Erick Rodriguez MEDICAL BILLING INSTRUCTOR, MEDICAL BILLING INSTRUCTOR-C Referring Provider Active Start: January 25, 2025 [...] Inactive Member Role/Relationship Status Dates Erick Brooks MEDICAL BILLING INSTRUCTOR, MEDICAL BILLING INSTRUCTOR-C Attending Provider Active Start: November 17, 2024 End: November 17, 2024 Team Status: Inactive Member Role/Relationship Status Dates Erick Brooks MEDICAL BILLING INSTRUCTOR, MEDICAL BILLING INSTRUCTOR-C Attending Provider Active Start: November 17, 2024 End: November 17, 2024 Erick Brooks MEDICAL BILLING INSTRUCTOR, MEDICAL BILLING INSTRUCTOR-C Referring Provider Active Start: November 17, 2024 End: November 17, 2024 Team Status: Inactive Member Role/Relationship Status Dates Dr. Fiordaliza Zhong MD Attending Provider Active Start: December 16, 2024 End: December 16, 2024 Team Status: Inactive Member Role/Relationship Status Dates Erick Neche MEDICAL BILLING INSTRUCTOR, MEDICAL BILLING INSTRUCTOR-C Attending Provider Active Start: January 12, 2025 End: January 12, 2025 Team Status: Inactive Member Role/Relationship Status Dates Erick Brooks MEDICAL BILLING INSTRUCTOR, MEDICAL BILLING INSTRUCTOR-C Attending Provider Active Start: January 24, 2025 End: January 24, 2025 Team Status: Inactive Member Role/Relationship Status Dates Erick Neche MEDICAL BILLING INSTRUCTOR, MEDICAL BILLING INSTRUCTOR-C Attending Provider Active Start: January 25, 2025 End: January 25, 2025 Erick Brooks MEDICAL BILLING INSTRUCTOR, MEDICAL BILLING INSTRUCTOR-C Referring Provider Active Start: January 25, 2025 [...] Inactive Member Role/Relationship Status Dates Erick Rodriguez MEDICAL BILLING INSTRUCTOR, MEDICAL BILLING INSTRUCTOR-C Attending Provider Active Start: January 12, 2025 End: January 12, 2025 Team Status: Inactive Member Role/Relationship Status Dates Erick Rodriguez MEDICAL BILLING INSTRUCTOR, MEDICAL BILLING INSTRUCTOR-C Attending Provider Active Start: January 24, 2025 End: January 24, 2025 Team Status: Inactive Member Role/Relationship Status Dates Erick Arguetas MEDICAL BILLING INSTRUCTOR, MEDICAL BILLING INSTRUCTOR-C Attending Provider Active Start: January 24, 2025 End: January 24, 2025 Team Status: Inactive Member Role/Relationship Status Dates Erick Arguetas MEDICAL BILLING INSTRUCTOR, MEDICAL BILLING INSTRUCTOR-C Attending Provider Active Start: January 25, 2025 End: January 25, 2025 Erick Rodriguez MEDICAL BILLING INSTRUCTOR, MEDICAL BILLING INSTRUCTOR-C Referring Provider Active Start: January 25, 2025 [...] Inactive Member Role/Relationship Status Dates Erick Rodriguez MEDICAL BILLING INSTRUCTOR, MEDICAL BILLING INSTRUCTOR-C Attending physician Active Start: January 12, 2025 End: January 12, 2025 Team Status: Inactive Member Role/Relationship Status Dates Erick Neche MEDICAL BILLING INSTRUCTOR, MEDICAL BILLING INSTRUCTOR-C Attending physician Active Start: January 24, 2025 End: January 24, 2025 Team Status: Inactive Member Role/Relationship Status Dates Erick Arguetas MEDICAL BILLING INSTRUCTOR, MEDICAL BILLING INSTRUCTOR-C Attending physician Active Start: January 24, 2025 End: January 24, 2025 Team Status: Inactive Member Role/Relationship Status Dates Erick Arguetas MEDICAL BILLING INSTRUCTOR, MEDICAL BILLING INSTRUCTOR-C Attending physician Active Start: January 25, 2025 End: January 25, 2025 Erick Rodriguez MEDICAL BILLING INSTRUCTOR, MEDICAL BILLING INSTRUCTOR-C Referring Provider Active Start: January 25, 2025 [...] Delmar Luna MD Primary care physician Act maacrio Start: March 21, 2025 End: March 21, [...] section and content) DATE CREATED AUTHOR 03/22/2025 [facility] DATE CREATED AUTHOR AUTHOR'S ORGANIZ ATION 04/06/2025 [facility] FOR RECORDS PERTAINING TO PATIENTS WHO ARE [...] BE BASED ON THE PRIMARY CLINICAL RECORDS. [facility] [address] [facility]. provides no warranty or guarantee of the accuracy or completeness of information in this document.
--- OUTSIDE RECORDS SUMMARY | 2025-04-07 21:49 | XMS RPT_ITS | CCD ---
Author Organization [facility] CliniSynd Care Team Providers Care Cable Splicer Assistant Name Role Phone Greg Rich CNM Attending Provider [phone] Greg Rich CNM Referring Provider [phone] Dr. Aye Dey DO Attending Provider Dr. Aye Dey DO Referring Provider Penryn SHAREMILKER-C, Erick Attending Provider [phone] Penryn SHAREMILKER-C, Erick Referring Provider [phone] Dr. Fiordaliza Zhong MD Attending Provider [phone] Dr. Delmar Luna MD Primary Care Provider Dr. Aye Dey DO Attending Provider Dr. Delmar Luna MD Referring Provider [phone] Dr. Aye Dey DO Attending Provider Greg Rich CNM Attending Provider [phone] Dr. Aye Dey DO Referring Provider Dr. Aye Dey DO Other Provider [phone] Dr. Fiordaliza Zhong MD Referring Provider Dr. Fiordaliza Zhong MD Other Provider [phone] Brooks SHAREMILKER-C, Erick Attending Provider Penryn SHAREMILKER-C, Erick Referring Provider REFERRED, SELF Referring Unavailable AYE RUVALCABA Attending Unavailable DELMAR LUNA Primary Care Unavailabl e RANNEY, CHRISTOPHER B Primary Care Unavailabl FIORDALIZA Christie Referring Unavailabl e LUCY ALVES Attending Unavailable RANCATASAUQUA, [facility] Primary Care Unavailabl e FRANKY BADILLO Attending Unavailable REFERRED, SELF Referring Unavailable AYE RUVALCABA Attending Unavailable [facility]CATASAUQUA, [facility] Primary Care Unavailabl e REFERRED, SELF Referring Unavailable GREG RICH Referring Unavailable RANCATASAUQUA, CHRISTOPHER B Primary Care Unavailabl e FRANKY BADILLO Attending Unavailable GREG RICH S Referring Unavailable FRANKY BADILLO Attending Unavailable RANCATASAUQUA, [facility] Primary Care Unavailsammi e COSTA CERRATO Attending Unavailable NO PRIMARY CARE, Primary Care Unavailable ERICK RODRIGUEZ S Referring Unavailable GREG RICH Referring Unavailable COSTA CERRATO Attending Unavailable NO PRIMARY CARE, Primary Care Unavailable Farheen MEDINA, Dr. Mancera Attending Physician Brooks SHAREMILKER-CErick Attending Physician [phone] Cheryl MEDINA, Dr. Mendoza Primary Care Physicia n Sola Mcdowell DO, Dr. Griffiths Attending Physician Greg Rich CNM Attending Physician [phone] Dr. Aye Dey DO Nurse Practitioner Farheen MEDINA, Dr. Mancera Nurse Practitioner Farheen MEDINA, Dr. Mancera Admitting Physician Greg Rich Attending Unavailable Greg Rich Referring Unavailable Erick Rodriguez Attending Unavailable Erick Rodriguez Referring Unavailable Ranney, Christopher Referring Unavailable [facility] Unavailable Aye Dey Attending UnavailFiordaliza Gaxiola Attending Unavailable Fiordaliza Zhong Referring Unavailable Ranmorgan, [facility] Primary Care Unavailable Fiordaliza Zhong Consulting Unavailable Ranney, [facility] Primary Care Unavailable Fiordaliza Zhong Attending Unavailable Fiordaliza Zhong Admitting Unavailable Ranney, Christopher Referring Unavailable Ranney, Christopher Primary Care Unavailable Eva Conroy Attending Unavailable Ranney, Christopher Primary Care Unavailable Ranney, Christopher Referring Unavailable Fiordaliza Zhong Attending Unavailable Erick Rodriguez Attending Unavailable BrooksErick Attending Unavailable Greg Rich Attending Unavailable DiegoonyFiordaliza Referring Unavailable MarcanthonyFiordaliza Consulting Unavailable [facility] Unavailable MarcanthonyFiordaliza Attending Unavailable MarcanthonyFiordaliza Admitting Unavailable MarcanthonyFiordaliza Consulting Unavailable [facility] Unavailable MarcanthonyFiordaliza Attending Unavailable [facility] [place] Referring Unavailable [facility] Unavailable MarcanthonyFiordaliza Attending Unavailable [facility] [place] Referring Unavailable [facility] Primary Care Unavailable BrooksErick Attending Unavailable [facility] Unavailable Vande Velde, Aye Referring Unavailabl e Vande Velde, Aye Consulting Unavailabl e Vande Velde, Aye Attending Unavailabl e Marcanthony, Fiordaliza Attending Unavailable MarcanthonyFiordaliza Referring Unavailable [facility] Unavailable DiegoonyFiordaliza Consulting Unavailable Erick Rodriguez Attending Unavailable MjanthonyFiordaliza Referring Unavailable [facility] Unavailable Fiordaliza Zhong Attending Unavailable Vande Velde, Aye Attending Unavailabl e Vande Velde, Aye Referring Unavailabl e MarcanthonyFiordaliza Referring Unavailable [facility] Unavailable Fiordaliza Zhong Attending Unavailable [facility] [place] Referring Unavailable [facility] Unavailable Fiordaliza Zhong Attending Unavailable Vande Velde, Aye Attending Unavailabl e BrooksErick pollack Attending Unavailable MarcanthonyFiordaliza Attending Unavailable Greg Rich Attending Unavailable [facility] Referring Unavailable [facility] Primary Care Unavailable Vande Velde, Aye Attending Unavailabl e [facility] Unavailable BrooksErick Referring Unavailable BrooksErick Attending Unavailable [facility] Referring Unavailable [facility] Unavailable Greg Rich Attending Unavailable Fiordaliza Zhong Admitting Unavailable [facility] Unavailable Fiordaliza Zhong Attending Unavailable [facility] Primary Care Unavailable Vande Velde, [...] by mouth once daily Flash Glucose Scanning [place] (Aircrmstyle Hardeep 2 [place]) misc (7 sources) Start: 03-07-2025 Flash Glucose Scanning [place] (Freestyle Hardeep 2 [place]) misc Active 0 .ROUTE .MEDSUPPLY 1 0 March 07, 2025 12:00am As directed isopropyl alcohol 0.7 ml/ml medicated pad (1 source) Start: 03-07-2025 Multivit 49-Amis-Jeiidc 1-Dha (Pnv-Dha) 27 mg iron-1 mg -300 [...] 1:00am Start: 08-29-2020 take 1 capsule by [facility] once daily Multivit 10-Shug-Uirwxy 1-Dha (Pnv-Dha) 27 mg iron-1 mg -300 [...] unspecified trimester] 09-24-2024 Chronic Comment on above: [id number] nl 1 tm hga1c. recom mend weekly [...] PRR, , MEET 04/17, boy [facility] What[place], [place] Other complications of (20 sources) Advanced [...] on above: GP IOL LT 04/14 B oy-Whately elects NIPT with gen radha, insufficient DNA, [...] Value Interpretation Reference Range Facility MR/BMS.[facility]-31[facility]20[facility] [address] [place] [address] OFFICE VISIT Date of Service: 03/31/25 MR#: [id number] Acct: [id number] Name: DEMETRIUS FERNANDES Rep #: [id number] : 1990 Provider: MARY JANE zuleta Age/Sex: 34/F [place] [facility] [place]: Signed Intake Vital Signs 03/28/25 05:40 03/31/25 15:17 Height 5 ft 9 in 5 ft 9 in Intake Visit Reasons: feeding assessment Allergies No Known Allergies Allergy (Verified 03/28/25 05:58) [facility] Medical History (Updated 03/31/25 @ 15:09 [...] 2 current occupational status: employed current occupation: [employer] current occupational exposures/hazards: No pets and [...] 1-2 times per week duration: 30-45 minutes/day parul/anglican: None seatbelt use: always do you feel safe at home: Yes 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 Date Name GA/Weeks Outcome Route Bth Weight Infant Gen Labor Lgth Anesthesia Del Locatn Provider FOB 04/14/21 Whately 40 live - full term 8#2oz Male epidural [facility] GP [place]il[place] 03/28/25 Agustín 37 live - full term 8lbs 1oz Male spinal [facility] Delivery Date: 04/14/21 Last Updated by: [...] ameda pump (more content not included)... Normal [facility] Bedside Glucoseon 03-29-2025 FINGERSTICK GLU 77 mg/dL Normal 74-106 [facility] Comment on above: Result Comment: JOAQUIM SEPULVEDA OF PATIENT CARE PER NURSING PROTOCOL Performed By: #### L 501.080 #### [facility] [address] [place], [address] CBC-Complete Blood Cnt No Di ffon 03-29-2025 Erythrocyte distribution width (RBC) [Ratio] 15.5 % High 11.6-14.6 [facility] Comment on above: Order Comment: Comme nts: Day #1 Reason for Laboratory Test Performed By: #### L 100.0500 #### [facility] [address] [place], [address] Hematocrit (Bld) [Volume fraction] 30.4 % Low 37-47 [facility] Comment on above: Order Comment: Comme nts: Day #1 Reason for Laboratory Test Performed By: #### L 100.0500 #### [facility] [address] [place], [address] Hemoglobin (Bld) [Mass/Vol] 9.9 g/dL Low 12.0-15.0 [facility] Comment on above: Order Comment: Comme nts: Day #1 Reason for Laboratory Test Performed By: #### L 100.0500 #### [facility] [address] [place], [address] MCH (RBC) [Entitic mass] 27.2 pg Normal 27.0-32.0 [facility] Comment on above: Order Comment: Comme nts: Day #1 Reason for Laboratory Test Performed By: #### L 100.0500 #### [facility] [address] [place], [address] MCHC (RBC) [Mass/Vol] 32.6 g/dL Normal 32-36 [facility] Comment on above: Order Comment: Comme nts: Day #1 Reason for Laboratory Test Performed By: #### L 100.0500 #### [facility] [address] [place], [address] MCV (RBC) [Entitic vol] 83.5 fL Normal 81-99 [facility] Comment on above: Order Comment: Comme nts: Day #1 Reason for Laboratory Test Performed By: #### L 100.0500 #### [facility] [address] [place], [address] Platelet mean volume (Bld) [Entitic vol] 10.6 fL Normal 6.2-12.0 [facility] Comment on above: Order Comment: Comme nts: Day #1 Reason for Laboratory Test Performed By: #### L 100.0500 #### [facility] [address] [place], [address] Platelets (Bld) [#/Vol] 211 10*3/uL Normal 150-450 [facility] Comment on above: Order Comment: Comme nts: Day #1 Reason for Laboratory Test Performed By: #### L 100.0500 #### [facility] [address] [place], [address] RBC (Bld) [#/Vol] 3.64 10*6/uL Low 4.2-5.4 [facility] Comment on above: Order Comment: Comme nts: Day #1 Reason for Laboratory Test Performed By: #### L 100.0500 #### [facility] [address] [place], [address] RDW SD 47.1 fl High 35.1-43.9 [facility] Comment on above: Order Comment: Comme nts: Day #1 Reason for Laboratory Test Performed By: #### L 100.0500 #### [facility] [address] [place], [address] WBC (Bld) [#/Vol] 12.2 10*3/uL High 4.4-11.0 [facility] Comment on above: Order Comment: Comme nts: Day #1 Reason for Laboratory Test Performed By: #### L 100.0500 #### [facility] [address] [place], [address] Erythrocyte distribution wid th ratioOrdered By: Fiordaliza Zhong on 03-29-2025 Erythrocyte distribution width (RBC) [Ratio] 15.5 % High 11.6-14.6 [facility] Erythrocyte distribution wid th standard deviationOrdered By: Fiordaliza Zhong on 03-29-2025 Erythrocyte distribution width (RBC) [Ratio] 47.1 fl High 35.1-43.9 [facility] Glucose measurement at bedsi deOrdered By: Fiordaliza Zhong on 03-29-2025 Glucose [Mass/Vol] 77 mg/dL 74-106 [facility] Comment on above: MANAGEMENT OF PATIEN T CARE PER NURSING PROTOCOL Hematocrit Auto (Bld) [Volum e fraction]Ordered By: Fiordaliza Zhong on 03-29-2025 Hematocrit (Bld) [Volume fraction] 30.4 % Low 37-47 [facility] Hemoglobin measurementOrdere d By: Fiordaliza Zhong on 03-29-2025 Hemoglobin (Bld) [Mass/Vol] 9.9 g/dL Low 12.0-15.0 [facility] MCV (mean corpuscular volume ) determinationOrdered By: Fiordaliza Zhong on 03-29-2025 MCV (RBC) [Entitic vol] 83.5 fL 81-99 [facility] Mean corpuscular hemoglobin (MCH) determinationOrdered By: Fiordaliza Zhong on 03-29-2025 MCH (RBC) [Entitic mass] 27.2 pg 27.0-32.0 [facility] Mean corpuscular hemoglobin concentration (MCHC) determinationOrdered By: Fiordaliza Zhong on 03-29-2025 MCHC (RBC) [Mass/Vol] 32.6 g/dL 32-36 [facility] Mean platelet volume determi nationOrdered By: Fiordaliza Zhong on 03-29-2025 Platelet mean volume (Bld) [Entitic vol] 10.6 fL 6.2-12.0 [facility] Platelet countOrdered By: Aga Zhong on 03-29-2025 Platelets (Bld) [#/Vol] 211 10*3/uL 150-450 [facility] RBC Auto (Bld) [#/Vol]Ordere d By: Fiordaliza Zhong on 03-29-2025 RBC (Bld) [#/Vol] 3.64 10*6/uL Low 4.2-5.4 [facility] White blood cell (WBC) count Ordered By: Fiordaliza Zhong on 03-29-2025 WBC (Bld) [#/Vol] 12.2 10*3/uL High 4.4-11.0 [facility] Absolute lymphocyte countOrd ered By: Fiordaliza Zhong on 03-28-2025 Lymphocytes Auto (Unsp spec) [#/Vol] 1.92 10*3/uL 0.83-4.51 [facility] Absolute neutrophil countOrd ered By: Fiordaliza Zhong on 03-28-2025 Neutrophils (Bld) [#/Vol] 8.7 10*3/uL High 2.0-7.7 [facility] Automated lymphocyte count a s percentage of total leukocytesOrdered By: Fiordaliza Zhong on 03-28-2025 Lymphocytes/100 WBC Auto (Unsp spec) 16.3 % Low 19-41 [facility] BRho(D) IGon 03-28-2025 Rho(D) IG Normal [facility] Comment on above: Result Comment: [id number] Rho(D) IG PRSMD TRFSD 03/28/25 1721 Performed By: #### L 509.8002 #### [facility] [address] [place], [place], [address] Basophil percentageOrdered B y: Fiordaliza Zhong on 03-28-2025 Basophils/100 WBC (Bld) 0.3 % 0-1 [facility] Bedside Glucoseon 03-28-2025 FINGERSTICK GLU 175 mg/dL High 74-106 [facility] Comment on above: Result Comment: JOAQUIM SEPULVEDA OF PATIENT CARE PER NURSING PROTOCOL Performed By: #### L 501.080 #### [facility] [address] [place], [place], [address] CBC W/Diff, Automatedon 03-14 Absolute Lymph 1.92 X10 3/uL Normal 0.83-4.51 [facility] Comment on above: Performed By: #### L 100.0500 #### [facility] [address] [place], [address] Absolute Neut 8.7 X10 3/uL High 2.0-7.7 [facility] Comment on above: Performed By: #### L 100.0500 #### [facility] [address] [place], [address] Basophils/100 WBC (Bld) 0.3 % Normal 0-1 [facility] Comment on above: Performed By: #### L 100.0500 #### [facility] [address] [place], [address] Eosinophils/100 WBC (Bld) 1.6 % Normal 0-5 [facility] Comment on above: Performed By: #### L 100.0500 #### [facility] [address] [place], [address] Erythrocyte distribution width (RBC) [Ratio] 15.5 % High 11.6-14.6 [facility] Comment on above: Performed By: #### L 100.0500 #### [facility] [address] [place], [address] Hematocrit (Bld) [Volume fraction] 32.4 % Low 37-47 [facility] Comment on above: Performed By: #### L 100.0500 #### [facility] [address] [place], [address] Hemoglobin (Bld) [Mass/Vol] 10.7 g/dL Low 12.0-15.0 [facility] Comment on above: Performed By: #### L 100.0500 #### [facility] [address] [place], [address] IG% 0.400 Normal 0.0-0.9 [facility] Comment on above: Result Comment: IG% - Immature Granulocytes (promyelocytes, myelocytes and metamyelocytes) > 1% indicates that a LEFT SHIFT is Present. Performed By: #### L 100.0500 #### [facility] [address] [place], [address] Lymphocytes/100 WBC (Bld) 16.3 % Low 19-41 [facility] Comment on above: Performed By: #### L 100.0500 #### [facility] [address] [place], [address] MCH (RBC) [Entitic mass] 27.5 pg Normal 27.0-32.0 [facility] Comment on above: Performed By: #### L 100.0500 #### [facility] [address] [place], [address] MCHC (RBC) [Mass/Vol] 33.0 g/dL Normal 32-36 [facility] Comment on above: Performed By: #### L 100.0500 #### [facility] [address] [place], [address] MCV (RBC) [Entitic vol] 83.3 fL Normal 81-99 [facility] Comment on above: Performed By: #### L 100.0500 #### [facility] [address] [place], [address] Monocytes/100 WBC (Bld) 7.5 % Normal 0-10 [facility] Comment on above: Performed By: #### L 100.0500 #### [facility] [address] [place], [address] Neutrophils/100 WBC (Bld) 73.9 % High 47-70 [facility] Comment on above: Performed By: #### L 100.0500 #### [facility] [address] [place], [address] Nucleated RBC (Bld) [#/Vol] 0 10*3/uL Normal 0-5 [facility] Comment on above: Performed By: #### L 100.0500 #### [facility] [address] [place], [address] Platelet mean volume (Bld) [Entitic vol] 10.8 fL Normal 6.2-12.0 [facility] Comment on above: Performed By: #### L 100.0500 #### [facility] [address] [place], [address] Platelets (Bld) [#/Vol] 247 10*3/uL Normal 150-450 [facility] Comment on above: Performed By: #### L 100.0500 #### [facility] [address] [place], [address] RBC (Bld) [#/Vol] 3.89 10*6/uL Low 4.2-5.4 [facility] Comment on above: Performed By: #### L 100.0500 #### [facility] [address] [place], [address] RDW SD 46.6 fl High 35.1-43.9 [facility] Comment on above: Performed By: #### L 100.0500 #### [facility] [address] [place], [address] WBC (Bld) [#/Vol] 11.8 10*3/uL High 4.4-11.0 [facility] Comment on above: Performed By: #### L 100.0500 #### [facility] [address] [place], [address] Discharge Instructionon 03-14 Discharge Instruction [facility] Medical Records Department [address] [place] [address] Instructions for Home/Discharge Instructions 03/28/25 0719 MR#: [id number] Acct: [id number] Name: DEMETRIUS FERNANDES Rep #: [id number] : 1990 34 From: Fiordaliza Zhong MD [...] Up With: Fiordaliza Zhong MD When: Call [phone] to make an appointment for an incision [...] mg PO DAILY (DME) FreeStyle Hardeep 2 [place] Misc See Rx Instructions .ROUTE .MEDSUPPLY Qty: [...] 1511 Fiordaliza Zhong MD CC: Dr. Delmar Lnua MD Signed Normal [facility] Eosinophil percentageOrdered By: Fiordaliza Zhong on 03-28-2025 Eosinophils/100 WBC (Bld) 1.6 % 0-5 [facility] Immature granulocytes/100 WB C Auto (Bld)Ordered By: Fiordaliza Zhong on 03-28-2025 Immature granulocytes/100 WBC (Bld) 0.400 % 0.0-0.9 [facility] Comment on above: IG% - Immature Granu locytes (promyelocytes, myelocytes and metamyelocytes) > 1% indicates that a LEFT SHIFT is Present. Monocyte percentageOrdered B y: Fiordaliza Zhong on 03-28-2025 Monocytes/100 WBC (Bld) 7.5 % 0-10 [facility] Neutrophil percentageOrdered By: Fiordaliza Zhong on 03-28-2025 Neutrophils/100 WBC (Bld) 73.9 % High 47-70 [facility] Nucleated red blood cell per centageOrdered By: Fiordaliza Zhong on 03-28-2025 Nucleated RBC/100 WBC (Bld) [Ratio] 0 % 0-5 [facility] Operative Reporton 5 Operative Report [facility] Medical Records Department [address] [place] [address] Operative Report 03/28/25 0716 MR#: [id number] Acct: [id number] Name: DEMETRIUS FERNANDES Rep #: [id number] : 1990 34 From: Fiordaliza Zhong MD PCP: Dr. Delmar Luna MD Status:ADM IN Location: [id number] Assessment Plan (1) Pre-existing severe obesity in [...] Description: 3 Vessels Delayed Cord Clamping: Yes Consultant Teacher electronic publications specialist: Yes Mental Health Aides Teacher: Catracho Davison Tasks completed by assistant women's rowing coach: Opening closing, Retracting and Other (assisting in delivery of the infant) Additional sales office assistant?: No Complications Complications: No Admit VTE Documentation VTE Present on Admission: No VTE Mechan Device Prophylaxis: SCD's Procedures Urinary/Genital 52xxx-59xxx: 29800 Delivery [facility] 03/30/25 0800 Co (more content not included)... Normal [facility] Rh Negative Mom Workupon ABO and Rh group Nom (Bld) Blood group O Rh(D) negative Normal [facility] Comment on above: Order Comment: Comme nts: Age > 13 [id number] Performed By: #### L 509.8002 #### [facility] [place], [address] ABO and Rh group Nom (Bld) Blood group A Rh(D) positive Normal [facility] Comment on above: Order Comment: Comme nts: Age > 13 [id number] Performed By: #### L 509.8002 #### [facility] [address] [place], [address] DIRECT ANTIGLOB Negative Normal NEGATIVE [facility] Comment on above: Order Comment: Comme nts: Age > 13 [id number] Performed By: #### L 509.8002 #### [facility] [address] [place], [address] SCREEN Negative Normal NEGATIVE [facility] Comment on above: Order Comment: Comme nts: Age > 13 [id number] Performed By: #### L 509.8002 #### [facility] [address] [place], [address] MOM'S ABS Negative Normal [facility] Comment on above: Order Comment: Comme nts: Age > 13 [id number] Performed By: #### L 509.8002 #### [facility] [address] [place], [address] Syphilis Antibodieson 2024 Syphilis Abs Non-Reactive Normal Nonreactive [facility] Comment on above: Performed By: #### L 509.8002 #### [facility] [address] [place], [address] Type AND Screenon 03-28-2025 Ab SCREEN GEL Negative Normal [facility] Comment on above: Order Comment: Comme nts: Day #1 Reason for Laboratory Test Performed By: #### L 100.0500 #### [facility] [address] [place], [address] OB Triage Progress Noteon OB Triage Progress Note [facility] Medical Records Department [address] [place] [address] OB Triage Progress Note 03/24/25 1004 MR#: [id number] Acct: [id number] Name: DEMETRIUS FERNANDES Rep #: [id number] : 1990 34 From: Fiordaliza Zhong MD PCP: Dr. Delmar Luna MD Status:REG CLI Y DOS: Location: [place] [id number] Progress Notes Date of Service: 03/24/25 Progress Note: Patient presents for triage evaluation secondary to polyhydramnios FHT: 135 Moderate variability reactive no decelerations category I tracing [place]: no regular Contractions Assessment and plan: 36 weeks severe polyhydramnios Reactive NST, reassuring maternal and status patient discharged to home to follow-up as scheduled. See problem list details for additional plan information. Charges/Coding Procedures Urinary/Genital 52xxx-59xxx: 86197-35 non-stress test Interp 03/24/25 1005 Date Fiordaliza Zhong MD Cosigner Signature (if applicable): Date CC: Dr. Delmar Luna MD; Dr. Fiordaliza Zhong MD Signed Normal [facility] Club Car Attendant Office Visit Reporton 03-24-2025 Club Car Attendant Office Visit Report [facility] [address], [address] [place] [address] OFFICE VISIT Date of Service: 03/24/25 MR#: [id number] Acct: [id number] Name: DEMETRIUS FERNANDES Rep #: [id number] : 1990 Provider: Dr. Fiordaliza leong MD Age/Sex: 34/F Location: [facility] Status: Signed Intake Vital Signs 03/24/25 09:10 03/24/25 10:26 Height 5 ft 9 in 5 ft 9 in Weight: 345 lb 9 oz BMI 51.0 BP 132/76 H Intake Visit Reasons: 37wk ob before csection *per Streaming Media Specialist Required: No Is patient in pain?: No [...] ea 03/07/25 03/24/25 Rx (FreeStyle Hardeep 2 [place]) lancets #200 ea 03/07/25 03/24/25 Rx Last [...] occupational status: employed and unemployed current occupation: [employer] current occupational exposures/hazards: No [...] 1-2 times per week duration: 30-45 minutes/day parul/anglican: None seatbelt use: always do you feel safe at home: Yes 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 Date Name GA/Weeks Outcome Route Bth Weight Gen Labor Lgth Anesthesia Del Locatn Provider FOB 04/14/21 Timmy 41 live - full term 8#2oz Male epidural [facility] GP [place] Delivery Date: 04/14/21 [...] Visit Note (more content not included)... Normal [facility] Rule out Beta Strep (Grp. B) on 03-23-2025 PRICE Group B Beta Streptococcus is not isolated. Normal [facility] Comment on above: Performed By: #### L 509.8002 #### [facility] [address] [place], [place], [address] Laboratory - Chemistry and C hemistry - challengeOrdered By: Fiordaliza Zhong on 03-21-2025 Glucose Ql (U) Negative [facility] Laboratory - UrinalysisOrder ed By: Fiordaliza Zhong on 03-21-2025 Protein Ql (U) Negative [facility] Club Car Attendant Office Visit Reporton 03-21-2025 Club Car Attendant Office Visit Report [facility]'s [address], [address] [place] [address] OFFICE VISIT Date of Service: 03/21/25 MR#: [id number] Acct: [id number] Name: DEMETRIUS FERNANDES Rep #: [id number] : 1990 Provider: Dr. Fiordailza leong MD Age/Sex: 34/F Location: [facility] Status: Signed Intake Vital Signs 01/24/25 08:40 03/09/25 10:29 03/15/25 10:40 03/21/25 10:29 Height 5 ft 9 in 5 ft 9 in 5 ft 9 in 5 ft 9 in Weight: 342 lb 6 oz BMI 50.5 BP 127/72 H Intake Visit Reasons: 36 wk ob Streaming Media Specialist Required: No Is patient in pain?: No [...] ea 03/07/25 03/21/25 Rx (FreeStyle Hardeep 2 [place]) lancets #200 ea 03/07/25 03/21/25 Rx Last [...] occupational status: employed and unemployed current occupation: [employer] current occupational exposures/hazards: No [...] 1-2 times per week duration: 30-45 minutes/day parul/anglican: None seatbelt use: always do you feel safe at home: Yes 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 Date Name GA/Weeks Outcome Route Bth Weight Gen Labor Lgth Anesthesia Del Locatn Provider FOB 04/14/21 Timmy 41 live - full term 8#2oz Male epidural [facility] GP [place] Delivery Date: 04/14/21 [...] Visit Note (more content not included)... Normal [facility] Progress Noteon 03-21-2025 Stem Roller Authentication Interface Message Text Comanage Polyhydramnios- concern [...] of 03/21/2025. [2] No Known Allergies Normal [facility] Screening beta-hemolytic Str eptococcus cultureOrdered By: Fiordaliza Zhong on 03-21-2025 Beta-hemolytic Streptococcus culture Group B Beta Streptococcus is not isolated. [facility] Progress Noteon 03-16-2025 Stem Roller Authentication Interface Message Text Comanage Polyhydramnios- concern [...] of 03/16/2025. [2] No Known Allergies Normal [facility] OB Triage Progress Noteon OB Triage Progress Note [facility] Medical Records Department [address] [place] [address] OB Triage Progress Note 03/15/25 1110 MR#: [id number] Acct: [id number] Name: DEMETRIUS FERNANDES Rep #: [id number] : 1990 34 From: Fiordaliza Zhong MD PCP: Dr. Delmar Luna MD Status:REG CLI Y DOS: Location: [place] [address] Progress Notes Date of Service: 03/15/25 Progress Note: Patient presents for triage evaluation secondary to polyhydramnios FHT: 130-135 Moderate variability reactive no decelerations category I tracing [place]: no regular Contractions Assessment and plan: polyhydramnios 35 weeks Reactive NST, reassuring maternal and status patient discharged to home to follow-up as scheudled. See problem list details for additional plan information. Charges/Coding Procedures Urinary/Genital 52xxx-59xxx: 62529-95 non-stress test Interp Assessment Plan (1) Polyhydramnios [...] MD; Dr. Fiordaliza Zhong MD Signed Normal [facility] Progress Noteon 03-11-2025 Stem Roller Authentication Interface Message Text [facility] Ultrasound Consult Note Today we discussed [...] 04/14/21 41w0d 3.685 kg M Vag-Spont Comments: [facility] NIPT not able to be [...] decrease in amniotic fluid. All questions answered. [facility] CS#46 recommendations. 1. Serial growth ultrasounds [...] -30 minutes chart review and documentation Normal [facility] Laboratory - Chemistry and C hemistry - challengeOrdered By: Aye Mcdowell on 03-09-2025 Glucose Ql (U) Negative [facility] Laboratory - UrinalysisOrder ed By: Aye Mcdowell on 03-09-2025 Protein Ql (U) Negative [facility] OB Triage Physician Noteon 0 03-09-2025 OB Triage Physician Note [facility] Medical Records Department [address] [place] [address] OB Triage Physician Note 03/09/252037 MR#: [id number] Acct: [id number] Name: DEMETRIUS FERNANDES Rep #: [id number] : 1990 34 From: Aye Dey DO PCP: Dr. 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 Date Name GA/Weeks Outcome Route Bth Weight Gen Labor Lgth Anesthesia Del Locatn Provider FOB 04/14/21 Whately 41 live - full term 8#2oz Male epidural [facility] GP [place] Delivery Date: 04/14/21 [...] -???-???-???-???-???-? ??- (more content not included)... Normal [facility] Club Car Attendant Office Visit Reporton 03-09-2025 Club Car Attendant Office Visit Report [facility] [address], [address] [place] [address] OFFICE VISIT Date of Service: 03/09/25 MR#: [id number] Acct: [id number] Name: DEMETRIUS FERNANDES Rep #: [id number] : 1990 Provider: Dr. Aye Morel DO Age/Sex: 34/F Location: [facility] Status: Signed Intake Vital Signs 01/12/25 09:43 02/22/25 10:03 03/09/25 08:54 03/09/25 08:55 Height 5 ft 9 in 5 ft 9 in 5 ft 9 in 5 ft 9 in Weight: 339 lb 6 oz BMI 50.1 BP 136/85 H Intake Visit Reasons: 34 wk ob Streaming Media Specialist Required: No Is patient in pain?: No [...] ea 03/07/25 03/09/25 Rx (FreeStyle Hardeep 2 [place]) lancets #200 ea 03/07/25 03/09/25 Rx Last [...] occupational status: employed and unemployed current occupation: [employer] current occupational exposures/hazards: No pets [...] 1-2 times per week duration: 30-45 minutes/day parul/anglican: None seatbelt use: always do you feel safe at home: Yes 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 Date Name GA/Weeks Outcome Route Bth Weight Gen Labor Lgth Anesthesia Del [place] Provider FOB 04/14/21 Timmy 41 live - full term 8#2oz Male epidural [facility] GP [place] Delivery Date: 04/14/21 [...] -???- Gluc (more content not included)... Normal [facility] Laboratory - Chemistry and C hemistry - challengeOrdered By: Greg Rich on 02-22-2025 Glucose Ql (U) Negative [facility] Laboratory - UrinalysisOrder ed By: Greg Rich on 02-22-2025 Protein Ql (U) Negative [facility] Club Car Attendant Office Visit Reporton 02-22-2025 Club Car Attendant Office Visit Report [facility]'s [address], [address] [place] [address] OFFICE VISIT Date of Service: 02/22/25 MR#: [id number] Acct: [id number] Name: DEMETRIUS FERNANDES Rep #: [id number] : 1990 Provider: ZACHARY Way ams Age/Sex: 34/F Location: [facility] Status: Signed Intake Vital Signs 01/12/25 09:43 02/07/25 09:25 02/22/25 10:03 Height 5 ft 9 in 5 ft 9 in 5 ft 9 in Weight: 338 lb 1 oz BMI 49.9 BP 132/76 H Intake Visit Reasons: 32 wk ob Chief Complaint: 32 wk OB Streaming Media Specialist Required: No Is patient in pain?: No [...] occupational status: employed and unemployed current occupation: [employer] current occupational exposures/hazards: No [...] 1-2 times per week duration: 30-45 minutes/day parul/anglican: None seatbelt use: always do you feel safe at home: Yes 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 Date Name GA/Weeks Outcome Route Bth Weight Gen Labor Lgth Anesthesia Del Locatn Provider FOB 04/14/21 Timmy 41 live - full term 8#2oz Male epidural [facility] GP [place] Delivery Date: 04/14/21 [...] cons with (more content not included)... Normal [facility] Laboratory - Chemistry and C hemistry - challengeOrdered By: Aye Mcdowell on 02-07-2025 Glucose Ql (U) Negative [facility] Laboratory - UrinalysisOrder ed By: Aye Mcdowell on 02-07-2025 Protein Ql (U) Negative [facility] Club Car Attendant Office Visit Reporton 02-07-2025 Club Car Attendant Office Visit Report [facility]'s [address], [address] [place] [address] OFFICE VISIT Date of Service: 02/07/25 MR#: [id number] Acct: [id number] Name: DEMETRIUS FERNANDES Rep #: [id number] : 1990 Provider: Dr. Aye Morel DO Age/Sex: 34/F Location: [facility] Status: Signed Intake Vital Signs 12/16/24 09:30 01/24/25 08:40 02/07/25 09:25 02/07/25 09:25 Height 5 ft 9 in 5 ft 9 in 5 ft 9 in 5 ft 9 in Weight: 332 lb BMI 49.0 BP 107/71 Intake Visit Reasons: 30wk ob Streaming Media Specialist Required: No Is patient in pain?: No [...] occupational status: employed and unemployed current occupation: [employer] current occupational exposures/hazards: No [...] 1-2 times per week duration: 30-45 minutes/day parul/anglican: None seatbelt use: always do you feel safe at home: Yes 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 Date Name GA/Weeks Outcome Route Bth Weight Infant Gen Labor Lgth Anesthesia Del [facility] Provider FOB 04/14/21 Timmy 41 live - full term 8#2oz Male epidural [facility] GP [place] Delivery Date: 04/14/21 [...] -???- K (more content not included)... Normal [facility] Gestational GTT 3HR 100gon 0 01-25-2025 GEST GTT 100gm Normal [facility] Comment on above: Order Comment: Y Result [...] 1025 Performed By: #### L 500.4710 #### [facility] [address] [place], [place], [id number] Quantitative serum or plasma 3 hour gestational glucose tolerance panelOrdered By: Erick Rodriguez on 01-25-2025 Glucose tolerance 3 hours gestational panel See comment [facility] Comment on above: FASTING 91 Col: 01/11 [...] Auto (Unsp spec) [#/Vol] 2.28 10*3/uL 0.83-4.51 [facility] Absolute neutrophil countOrd ered By: Erick Smithtings on 01-24-2025 Neutrophils (Bld) [#/Vol] 10.3 10*3/uL High 2.0-7.7 [facility] Automated lymphocyte count a s percentage of total leukocytesOrdered By: Erick Penryn on 01-24-2025 Lymphocytes/100 WBC Auto (Unsp spec) 16.6 % Low 19-41 [facility] Basophil percentageOrdered B y: Erick Penryn on 01-24-2025 Basophils/100 WBC (Bld) 0.3 % 0-1 [facility] CBC W/Diff, Automatedon 01-11 Absolute Lymph 2.28 X10 3/uL Normal 0.83-4.51 [facility] Comment on above: Performed By: #### L 509.8002 #### [facility] [address] [place], [place], [id number] Absolute Neut 10.3 X10 3/uL High 2.0-7.7 [facility] Comment on above: Performed By: #### L 509.8002 #### [facility] [address] [place], [place], [address] Basophils/100 WBC (Bld) 0.3 % Normal 0-1 [facility] Comment on above: Performed By: #### L 509.8002 #### [facility] [address] [place], [address] Eosinophils/100 WBC (Bld) 0.9 % Normal 0-5 [facility] Comment on above: Performed By: #### L 509.8002 #### [facility] [address] [place], [address] Erythrocyte distribution width (RBC) [Ratio] 15.7 % High 11.6-14.6 [facility] Comment on above: Performed By: #### L 509.8002 #### [facility] [address] [place], [address] Hematocrit (Bld) [Volume fraction] 33.4 % Low 37-47 [facility] Comment on above: Performed By: #### L 509.8002 #### [facility] [address] [place], [address] Hemoglobin (Bld) [Mass/Vol] 10.6 g/dL Low 12.0-15.0 [facility] Comment on above: Performed By: #### L 509.8002 #### [facility] [address] [place], [address] IG% 0.700 Normal 0.0-0.9 [facility] Comment on above: Result Comment: IG% - Immature Granulocytes (promyelocytes, myelocytes and metamyelocytes) > 1% indicates that a LEFT SHIFT is Present. Performed By: #### L 509.8002 #### [facility] [address] [place], [address] Lymphocytes/100 WBC (Bld) 16.6 % Low 19-41 [facility] Comment on above: Performed By: #### L 509.8002 #### [facility] [address] [place], [address] MCH (RBC) [Entitic mass] 27.1 pg Normal 27.0-32.0 [facility] Comment on above: Performed By: #### L 509.8002 #### [facility] [address] [place], [address] MCHC (RBC) [Mass/Vol] 31.7 g/dL Low 32-36 [facility] Comment on above: Performed By: #### L 509.8002 #### [facility] [address] [place], [address] MCV (RBC) [Entitic vol] 85.4 fL Normal 81-99 [facility] Comment on above: Performed By: #### L 509.8002 #### [facility] [address] [place], [address] Monocytes/100 WBC (Bld) 6.5 % Normal 0-10 [facility] Comment on above: Performed By: #### L 509.8002 #### [facility] [address] [place], [address] Neutrophils/100 WBC (Bld) 75.0 % High 47-70 [facility] Comment on above: Performed By: #### L 509.8002 #### [facility] [address] [place], [address] Nucleated RBC (Bld) [#/Vol] 0 10*3/uL Normal 0-5 [facility] Comment on above: Performed By: #### L 509.8002 #### [facility] [address] [place], [address] Platelet mean volume (Bld) [Entitic vol] 10.7 fL Normal 6.2-12.0 [facility] Comment on above: Performed By: #### L 509.8002 #### [facility] [address] [place], [address] Platelets (Bld) [#/Vol] 262 10*3/uL Normal 150-450 [facility] Comment on above: Performed By: #### L 509.8002 #### [facility] [address] [place], [address] RBC (Bld) [#/Vol] 3.91 10*6/uL Low 4.2-5.4 [facility] Comment on above: Performed By: #### L 509.8002 #### [facility] [address] [place], [address] RDW SD 48.2 fl High 35.1-43.9 [facility] Comment on above: Performed By: #### L 509.8002 #### [facility] [address] [place], [address] WBC (Bld) [#/Vol] 13.8 10*3/uL High 4.4-11.0 [facility] Comment on above: Performed By: #### L 509.8002 #### [facility] [address] [place], [address] Eosinophil percentageOrdered By: Erick Rodriguez on 01-24-2025 Eosinophils/100 WBC (Bld) 0.9 % 0-5 [facility] Erythrocyte distribution wid th ratioOrdered By: Erick Rodriguez on 01-24-2025 Erythrocyte distribution width (RBC) [Ratio] 15.7 % High 11.6-14.6 [facility] Erythrocyte distribution wid th standard deviationOrdered By: Erick Rodriguez on 01-24-2025 Erythrocyte distribution width (RBC) [Ratio] 48.2 fl High 35.1-43.9 [facility] Glucose Challenge Gest 1H 50 ender 01-24-2025 GLU GEST 50g 1H 150 mg/dL High 70-140 [facility] Comment on above: Performed By: #### L 509.8002 #### [facility] [address] [place], [address] Glucose measurement at 2 lauro rs post-dose gestational glucose tolerance testOrdered By: Erick Rodriguez on 01-24-2025 Glucose [Mass/Vol] 150 mg/dL High 70-140 [facility] HIVon 01-24-2025 HIV Non-Reactive Normal Nonreactive [facility] Comment on above: Result Comment: Non- Reactive Reactive Repeatedly reactive samples must be confirmed according to CDC recommended confirmatory algorithms. The subresults for either HIVAG or AHIV can be used as an aid in the selection of the confirmation algorithm for reactive samples. Send out specimens with Reactive results to [facility] for confirmation. Order the HIV antibody detection and differentiation: lc#[id number] Performed By: #### L 509.8002 #### [facility] [address] [place], [place], [address] Hematocrit Auto (Bld) [Volum e fraction]Ordered By: Erick Rodriguez on 01-24-2025 Hematocrit (Bld) [Volume fraction] 33.4 % Low 37-47 [facility] Hemoglobin measurementOrdere d By: Erick Rodriguez on 01-24-2025 Hemoglobin (Bld) [Mass/Vol] 10.6 g/dL Low 12.0-15.0 [facility] Immature granulocytes/100 WB C Auto (Bld)Ordered By: Erick Rodriguez on 01-24-2025 Immature granulocytes/100 WBC (Bld) 0.700 % 0.0-0.9 [facility] Comment on above: IG% - Immature Granu locytes (promyelocytes, myelocytes and metamyelocytes) > 1% indicates that a LEFT SHIFT is Present. Laboratory - Chemistry and C hemistry - challengeOrdered By: Erick Rodriguez on 01-24-2025 Glucose Ql (U) Negative [facility] Laboratory - UrinalysisOrder ed By: Erick Rodriguez on 01-24-2025 Protein Ql (U) Negative [facility] MCV (mean corpuscular volume ) determinationOrdered By: Erick Rodriguez on 01-24-2025 MCV (RBC) [Entitic vol] 85.4 fL 81-99 [facility] Mean corpuscular hemoglobin (MCH) determinationOrdered By: Erick Rodriguez on 01-24-2025 MCH (RBC) [Entitic mass] 27.1 pg 27.0-32.0 [facility] Mean corpuscular hemoglobin concentration (MCHC) determinationOrdered By: Erick Rodriguez on 01-24-2025 MCHC (RBC) [Mass/Vol] 31.7 g/dL Low 32-36 [facility] Mean platelet volume determi nationOrdered By: Erick Rodriguez on 01-24-2025 Platelet mean volume (Bld) [Entitic vol] 10.7 fL 6.2-12.0 [facility] Monocyte percentageOrdered B y: Erick Rodriguez on 01-24-2025 Monocytes/100 WBC (Bld) 6.5 % 0-10 [facility] Neutrophil percentageOrdered By: Erick Rodriguez on 01-24-2025 Neutrophils/100 WBC (Bld) 75.0 % High 47-70 [facility] No Panel InformationOrdered By: Erick Rodriguez on 01-24-2025 HIV (1&2) Antibody Non-Reactive Nonreactive [facility] Comment on above: Non-ReactiveReactive Repeatedly reactive samples must be confirmed according to CDC recommended confirmatory algorithms. The subresults for either HIVAG or AHIV can be used as an aid in the selection of the confirmation algorithm for reactive samples.Send out specimens with Reactive results to [facility] for confirmation.Order the HIV antibody detection and differentiation: #[id number] Nucleated red blood cell per centageOrdered By: Erick Rodriguez on 01-24-2025 Nucleated RBC/100 WBC (Bld) [Ratio] 0 % 0-5 [facility] Club Car Attendant Office Visit Reporton 01-24-2025 Club Car Attendant Office Visit Report [facility] [address], [address] [place] [address] OFFICE VISIT Date of Service: 01/24/25 MR#: [id number] Acct: [id number] Name: DEMETRIUS FERNANDES Rep #: [id number] : 1990 Provider: MARY JANE godoy Age/Sex: 34/F Location: [facility] Status: Signed Intake Vital Signs 12/16/24 09:30 01/12/25 09:43 01/24/25 08:30 01/24/25 08:40 Height 5 ft 9 in 5 ft 9 in 5 ft 9 in 5 ft 9 in Weight: 331 lb 2 oz BMI 48.9 BP 124/72 H Intake Visit Reasons: 28wk ob/glucose/rhogam Chief Complaint: 28 Week OB/Rhogam Streaming Media Specialist Required: No Is patient in pain?: No [...] occupational status: employed and unemployed current occupation: [employer] current occupational exposures/hazards: No [...] 1-2 times per week duration: 30-45 minutes/day parul/anglican: None seatbelt use: always do you feel [...] live - full term 8#2oz Male epidural [facility] GP Froilan Delivery Date: 04/14/21 [...] dates. ac (more content not included)... Normal [facility] Platelet countOrdered By: Lalo Rodriguez on 01-24-2025 Platelets (Bld) [#/Vol] 262 10*3/uL 150-450 [facility] RBC Auto (Bld) [#/Vol]Ordere d By: Erick Rodriguez on 01-24-2025 RBC (Bld) [#/Vol] 3.91 10*6/uL Low 4.2-5.4 [facility] Syphilis Antibodieson 2024 Syphilis Abs Non-Reactive Normal Nonreactive [facility] Comment on above: Performed By: #### L 614.0647 #### [facility] [address] [place], [place], [id number] Type AND Screenon 01-24-2025 ABO and Rh group Nom (Bld) Blood group O Rh(D) negative Normal [facility] Comment on above: Order Comment: PN Performed By: #### L 137.8008 #### [facility] [address] [place], [place], [id number] White blood cell (WBC) count Ordered By: Erick Rodriguez on 01-24-2025 WBC (Bld) [#/Vol] 13.8 10*3/uL High 4.4-11.0 [facility] Laboratory - Chemistry and C hemistry - challengeOrdered By: Erick Rodriguez on 01-12-2025 Glucose Ql (U) Negative [facility] Laboratory - UrinalysisOrder ed By: Erick Rodriguez on 01-12-2025 Protein Ql (U) Negative [facility] Club Car Attendant Office Visit Reporton 01-12-2025 Club Car Attendant Office Visit Report [facility]'s [address], [address] [place] [address] OFFICE VISIT Date of Service: 01/12/25 MR#: [id number] Acct: [id number] Name: DEMETRIUS FERNANDES Rep #: [id number] : 1990 Provider: MARY JANE godoy Age/Sex: 34/F Location: [facility] Status: Signed Intake Vital Signs 11/17/24 08:40 12/16/24 09:30 01/12/25 09:43 Height 5 ft 9 in 5 ft 9 in 5 ft 9 in Weight: 328 lb 8 oz BMI 48.4 BP 130/82 H Intake Visit Reasons: 26 wk ob Chief Complaint: 26 Week OB Streaming Media Specialist Required: No Is patient in pain?: No [...] occupational status: employed and unemployed current occupation: [employer] current occupational exposures/hazards: No pets and [...] 1-2 times per week duration: 30-45 minutes/day parul/anglican: None seatbelt use: always do you feel safe at home: Yes 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 Date Name GA/Weeks Outcome Route Bth Weight Gen Labor Lgth Anesthesia Del Locatn Provider FOB 04/14/21 Whately 41 live - full term 8#2oz Male epidural [facility] GP Froilan Delivery Date: 04/14/21 [...] with dates (more content not included)... Normal [facility] Laboratory - Chemistry and C hemistry - challengeOrdered By: Fiordaliza Zhong on 12-16-2024 Glucose Ql (U) Negative [facility] Laboratory - UrinalysisOrder ed By: Fiordaliza Zhong on 12-16-2024 Protein Ql (U) Negative [facility] Club Car Attendant Office Visit Reporton 12-16-2024 Club Car Attendant Office Visit Report [facility]'s [address], [address] [place] [address] OFFICE VISIT Date of Service: 12/16/24 MR#: [id number] Acct: [id number] Name: DEMETRIUS FERNANDES Rep #: [id number] : 1990 Provider: Dr. 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 Date Name GA/Weeks Outcome Route Bth Weight Infant Gen Labor Lgth Anesthesia Del Locatn Provider FOB 04/14/21 Whately 41 live - full term 8#2oz Male epidural [facility] GP Froilan Delivery Date: 04/14/21 [...] this . (more content not included)... Normal [facility] L3410.9992on 11-23-2024 [facility] Misc. COMMENT Normal . [facility] Comment on above: Order Comment: Speci men Comment: SEE END OF THIS REPORT FOR CORRECTED REPORT COMMENTS [id number] msAFP SERUM RT Result Comment: Test Ordered: [id number] AFP, Serum, Open Spina Bifida Results Comment TG Reference Range: . The MOM and risk factors of this report have been modified based on new information supplied to us by the client or their designated sales representative raw fibers. The Weight was changed from Not provided. [...] Customer Services to discuss available options. The [employer] recommends amniocentesis [...] TG Reference Range: . Candice Simmons, Ph.D., [facility] Director References: Available Upon Request. Multiples Of Median Cutoffs For AFP Elevations Worrell 2.5 Black 2.8 IDD 2.0 Twins 4.5 Abbreviation Definitions IDD - Insulin Dep Diabetes OSBR - Open Spina Bifida Risk For further inquiries contact [employer] at [phone]. This test was developed and its performance characteristics determined by [employer]. It has not been cleared or approved by the Food and Drug Administration. Performed at: - [facility] [place], [place] [id number] Pump House Technician: Cara Lanza [facility], Phone: [phone] Performed at: - [address] [id number] Pump House Technician: Jake Ferreira PhD, Phone: [phone] AMENDED REPORT 11/23/24 160[facility]. previously reported as: COMMENT Test Ordered: [id number] AFP, Serum, Open Spina Bifida Results Report [...] TG Reference Range: . Candice Simmons, Ph.D., [facility] Director References: Available Upon Request. Multiples Of Median Cutoffs For AFP Elevations Worrell 2.5 Black 2.8 IDD 2.0 Twins 4.5 Abbreviation Definitions IDD - Insulin Dep Diabetes OSBR - Open Spina Bifida Risk For further inquiries contact [employer] [facility] at [phone]. This test was developed and its performance characteristics determined by [employer]. It has not been cleared or approved by the Food and Drug Administration. Performed at: - [facility] [address] [facility], [place], [place] [id number] Pump House Technician: Cara Lanza [facility], Phone: [phone] Performed at (more content not included)... Performed By: #### L 3410.9992 #### [facility] [address] [place], [place], [address] Laboratory - Chemistry and C hemistry - challengeOrdered By: Erick Rodriguez on 11-17-2024 Glucose Ql (U) Negative [facility] Laboratory - UrinalysisOrder ed By: Erick Rodriguez on 11-17-2024 Protein Ql (U) Negative [facility] Club Car Attendant Office Visit Reporton 11-17-2024 Club Car Attendant Office Visit Report [facility]'s [address], [address] [place] [address] OFFICE VISIT Date of Service: 11/17/24 MR#: [id number] Acct: [id number] Name: DEMETRIUS FERNANDES Rep #: [id number] : 1990 Provider: MARY JANE godoy Age/Sex: 34/F Location: [facility] Status: Signed Intake Vital Signs 09/23/24 09:08 10/22/24 10:18 11/17/24 08:40 Height 5 ft 9 in 5 ft 9 in 5 ft 9 in Weight: 317 lb 8 oz BMI 46.8 BP 126/80 H Intake Visit Reasons: 18wk ob Chief Complaint: 18 Week OB Streaming Media Specialist Required: No Is patient in pain?: No [...] occupational status: employed and unemployed current occupation: [employer] current occupational exposures/hazards: No pets and [...] 1-2 times per week duration: 30-45 minutes/day parul/anglican: None seatbelt use: always do you feel safe at home: Yes 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 Date Name GA/Weeks Outcome Route Bth Weight [facility]ant [facility]21 Timmy 41 live - full term 8#2oz Male epidural [facility] GP Froilan Delivery Date: 04/14/21 [...] NIPT-very concerned (more content not included)... Normal [facility] Laboratory - Chemistry and C hemistry - challengeOrdered By: Aye Mcdowell on 10-22-2024 Glucose Ql (U) Negative [facility] Laboratory - UrinalysisOrder ed By: Aye Mcdowell on 10-22-2024 Protein Ql (U) Negative [facility] Club Car Attendant Office Visit Reporton 10-22-2024 Club Car Attendant Office Visit Report [facility] [address], [address] [place] [address] OFFICE VISIT Date of Service: 10/22/24 MR#: [id number] Acct: [id number] Name: DEMETRIUS FERNANDES Rep #: [id number] : 1990 Provider: Dr. Aye Morel, Age/Sex: 34/F Location: [facility] Status: Signed Intake Vital Signs 04/13/21 20:08 09/23/24 09:08 10/22/24 10:18 10/22/24 10:18 Height 5 ft 9 in 5 ft 9 in 5 ft 9 in 5 ft 9 in Weight: 312 lb 2 oz BMI 46.0 BP 119/76 Intake Visit Reasons: 14wk OB Streaming Media Specialist Required: No Is patient in pain?: No [...] occupational status: employed and unemployed current occupation: [employer] current occupational exposures/hazards: No pets and [...] 1-2 times per week duration: 30-45 minutes/day parul/anglican: None seatbelt use: always do you feel safe at home: Yes 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 Date Name GA/Weeks Outcome Route Bth Weight Infant Gen Labor Lgth Anesthesia Del Locatn Provider FOB 04/14/21 Whately 41 live - full term 8#2oz Male epidural [facility] GP Froilan Delivery Date: 04/14/21 [...] NIPT-very concerned (more content not included)... Normal [facility] Miscellaneous procedureOrder ed By: Aye Mcdowell on 10-04-2024 Miscellaneous Test Comment SEE SCANNED REPORT [facility] NATERAon 10-04-2024 NATURA SEE SCANNED REPORT Normal [facility] Comment on above: Performed By: #### L 900.0098 #### [facility] [address] [place], [place], [address] PAP IG HPV APTIMA 16/18,45on 09-28-2024 ADEQ Comment Normal . [facility] Comment on above: Order Comment: Speci men Comment: [id number] Specimen Comment: Source.............Cervix;Endocervix Specimen Comment: LMP / Prev Treat...[id number] Specimen Comment: Other.............. Specimen Comment: No. of containers..01 ThinPrep Vial Result Comment: Sati sfactory for evaluation. No endocervical component is identified. An endocervical component is not commonly seen in the patient. Performed By: #### L 7000.1800, L7400.0280, M100.2200 #### [facility] [address] [place], [place], [address] COMM . Normal . [facility] Comment on above: Order Comment: Speci men Comment: [id number] Specimen Comment: Source.............Cervix;Endocervix Specimen Comment: LMP / Prev Treat...[id number] Specimen Comment: Other.............. Specimen Comment: No. of containers..01 ThinPrep Vial Performed By: #### L 7000.1800, L7400.0280, M100.2200 #### [facility] [address] [place], [place], [address] COMMENT Comment Normal . [facility] Comment on above: Order Comment: Speci men Comment: [id number] Specimen Comment: Source.............Cervix;Endocervix Specimen Comment: LMP / Prev Treat...[id number] Specimen Comment: Other.............. Specimen Comment: No. of containers..01 ThinPrep Vial Result Comment: This liquid based ThinPrep(R) pap test was screened with the use of an image guided system. Performed By: #### L 7000.1800, L7400.0280, M100.2200 #### [facility] [address] [place], [place], [address] DIAG Comment Normal . [facility] Comment on above: Order Comment: Speci men Comment: [id number] Specimen Comment: Source.............Cervix;Endocervix Specimen Comment: LMP / Prev Treat...[id number] Specimen Comment: Other.............. Specimen Comment: No. of containers..01 ThinPrep Vial Result Comment: NEGA TIVE FOR INTRAEPITHELIAL LESION OR MALIGNANCY. Performed By: #### L 7000.1800, L7400.0280, M100.2200 #### [facility] [address] [place], [place], [address] HPV APTIMA, HR Negative Normal Negative [facility] Comment on above: Order Comment: Speci men Comment: [id number] Specimen Comment: Source.............Cervix;Endocervix Specimen Comment: LMP / Prev Treat...[id number] Specimen Comment: Other.............. Specimen Comment: No. of containers..01 ThinPrep Vial Result Comment: This nucleic acid amplification test detects fourteen high- risk HPV types (16,18,31,33,35,39,45,51,52,56,58,59,66,68) without differentiation. Performed By: #### L 7000.1800, L7400.0280, M100.2200 #### [facility] [address] [place], [place], [address] HPV Sarah Rfx Comment Normal . [facility] Comment on above: Order Comment: Speci men Comment: [id number] Specimen Comment: Source.............Cervix;Endocervix Specimen Comment: LMP / Prev Treat...[id number] Specimen Comment: Other.............. Specimen Comment: No. of containers..01 ThinPrep Vial Result Comment: Crit mellissa not met, HPV Genotype not performed. Performed at: - [address] [id number] Pump House Technician: Silvia Irwin MD, Phone: [phone] Performed at: = - [facility] [id number] Pump House Technician: Silvia Irwin MD, Phone: [phone] Performed By: #### L 7000.1800, L7400.0280, M1.0 #### [facility] [address] [place], [place], [address] PAPSMR Comment Normal . [facility] Comment on above: Order Comment: Speci men Comment: [id number] Specimen Comment: Source.............Cervix;Endocervix Specimen Comment: LMP / Prev Treat...[id number] Specimen Comment: Other.............. Specimen Comment: No. of [...] By: #### L 7000.1800, L7400.0280, M100.2200 #### [facility] [address] [place], [address] PERFORM Comment Normal . [facility] Comment on above: Order Comment: Speci men Comment: [id number] Specimen Comment: Source.............Cervix;Endocervix Specimen Comment: LMP / Prev Treat...[id number] Specimen Comment: Other.............. Specimen Comment: No. of containers..01 ThinPrep Vial Result Comment: Tammy Horan, Histology Assistant (ASCP) Performed By: #### L 7000.1800, L7400.0280, M100.2200 #### [facility] [address] [place], [address] Chlamydia/GC ARIAN aptimaon CHLAMY,NUC ACID Negative Normal Negative [facility] Comment on above: Performed By: #### L 7000.1800, L7400.0280, M100.2200 #### [facility] [address] [place], [address] GC BY NUC ACID Negative Normal Negative [facility] Comment on above: Result Comment: Perf ormed at: =G - [facility] [address] [id number] Pump House Technician: Silvia Irwin MD, Phone: [phone] Performed By: #### L 7000.1800, L7400.0280, M100.2200 #### [facility] [address] [place], [address] Urine Cultureon 09-24-2024 [facility] Culture exhibits no growth. Normal [facility] Comment on above: Performed By: #### L 7000.1800, L7400.0280, M100.2200 #### [facility] [address] [place], [address] Absolute lymphocyte countOrd ered By: Greg Rich on 09-23-2024 Lymphocytes Auto (Unsp spec) [#/Vol] 2.53 10*3/uL 0.83-4.51 [facility] Absolute neutrophil countOrd ered By: Greg Rich on 09-23-2024 Neutrophils (Bld) [#/Vol] 8.7 10*3/uL High 2.0-7.7 [facility] Automated lymphocyte count a s percentage of total leukocytesOrdered By: Greg Rich on 09-23-2024 Lymphocytes/100 WBC Auto (Unsp spec) 20.5 % 19-41 [facility] Basophil percentageOrdered B y: Greg Rich on 09-23-2024 Basophils/100 WBC (Bld) 0.5 % 0-1 [facility] C. trachomatis rRNA ARIAN+prob e Ql (Unsp spec)Ordered By: Greg Rich on 09-23-2024 Chlamydia DNA (ARIAN) Negative Negative [facility] CBC W/Diff, Automatedon 09-11 Absolute Lymph 2.53 X10 3/uL Normal 0.83-4.51 [facility] Comment on above: Performed By: #### L 100.0500 #### [facility] [address] [place], [address] Absolute Neut 8.7 X10 3/uL High 2.0-7.7 [facility] Comment on above: Performed By: #### L 100.0500 #### [facility] [address] [place], [address] Basophils/100 WBC (Bld) 0.5 % Normal 0-1 [facility] Comment on above: Performed By: #### L 100.0500 #### [facility] [address] [place], [address] Eosinophils/100 WBC (Bld) 1.2 % Normal 0-5 [facility] Comment on above: Performed By: #### L 100.0500 #### [facility] [address] [place], [address] Erythrocyte distribution width (RBC) [Ratio] 14.0 % Normal 11.6-14.6 [facility] Comment on above: Performed By: #### L 100.0500 #### [facility] [address] [place], [address] Hematocrit (Bld) [Volume fraction] 36.9 % Low 37-47 [facility] Comment on above: Performed By: #### L 100.0500 #### [facility] [address] [place], [address] Hemoglobin (Bld) [Mass/Vol] 12.0 g/dL Normal 12.0-15.0 [facility] Comment on above: Performed By: #### L 100.0500 #### [facility] [address] [place], [address] IG% 0.300 Normal 0.0-0.9 [facility] Comment on above: Result Comment: IG% - Immature Granulocytes (promyelocytes, myelocytes and metamyelocytes) > 1% indicates that a LEFT SHIFT is Present. Performed By: #### L 100.0500 #### [facility] [address] [place], [address] Lymphocytes/100 WBC (Bld) 20.5 % Normal 19-41 [facility] Comment on above: Performed By: #### L 100.0500 #### [facility] [address] [place], [address] MCH (RBC) [Entitic mass] 27.3 pg Normal 27.0-32.0 [facility] Comment on above: Performed By: #### L 100.0500 #### [facility] [address] [place], [address] MCHC (RBC) [Mass/Vol] 32.5 g/dL Normal 32-36 [facility] Comment on above: Performed By: #### L 100.0500 #### [facility] [address] [place], [address] MCV (RBC) [Entitic vol] 83.9 fL Normal 81-99 [facility] Comment on above: Performed By: #### L 100.0500 #### [facility] [address] [place], [address] Monocytes/100 WBC (Bld) 7.0 % Normal 0-10 [facility] Comment on above: Performed By: #### L 100.0500 #### [facility] [address] [place], [address] Neutrophils/100 WBC (Bld) 70.5 % High 47-70 [facility] Comment on above: Performed By: #### L 100.0500 #### [facility] [address] [place], [address] Nucleated RBC (Bld) [#/Vol] 0 10*3/uL Normal 0-5 [facility] Comment on above: Performed By: #### L 100.0500 #### [facility] [address] [place], [address] Platelet mean volume (Bld) [Entitic vol] 10.7 fL Normal 6.2-12.0 [facility] Comment on above: Performed By: #### L 100.0500 #### [facility] [address] [place], [address] Platelets (Bld) [#/Vol] 294 10*3/uL Normal 150-450 [facility] Comment on above: Performed By: #### L 100.0500 #### [facility] [address] [place], [address] RBC (Bld) [#/Vol] 4.40 10*6/uL Normal 4.2-5.4 [facility] Comment on above: Performed By: #### L 100.0500 #### [facility] [address] [place], [address] RDW SD 43.3 fl Normal 35.1-43.9 [facility] Comment on above: Performed By: #### L 100.0500 #### [facility] [address] [place], [address] WBC (Bld) [#/Vol] 12.3 10*3/uL High 4.4-11.0 [facility] Comment on above: Performed By: #### L 100.0500 #### [facility] [address] [place], [address] Cervical or vaginal specimen microscopic examination by liquid based cytology (reportOrdered By: Greg Rich on 09-23-2024 Cytology report Cyto stain.thin prep Doc (Cvx/Vag) Comment . [facility] Comment on above: Criteria not met, HP V Genotype not performed.Performed at: - [address] [id number] Director: Silvia Irwin MD, Phone: [phone] at: =[address] [id number] Director: Silvia Irwin MD, Phone: [phone] Cervical or vagninal specime n microscopic examination by cytology stain (reported asOrdered By: Greg Rich on 09-23-2024 Cytology report Cyto stain Doc (Cvx/Vag) Comment . [facility] Comment on above: The Pap smear is [...] rRNA ARIAN+probe Ql (Unsp spec) Negative Negative [facility] Salad Chef Cyto stain Nom (C vx/Vag) [ID]Ordered By: Greg Rich on 09-23-2024 Pap Smear Performed By Comment . [facility] Comment on above: Jorge A Art totechnologist (ASCP) Cytology report Cyto stain D oc (Cvx/Vag)Ordered By: Greg Rich on 09-23-2024 Thin Prep Pap Smear Comment . [facility] Comment on above: The Pap smear is [...] 09-23-2024 HPV Genotype Special Info Comment . [facility] Comment on above: Criteria not met, HP V Genotype not performed.Performed at: - [facility] [id number] Director: Silvia Irwin MD, Phone: [phone] at: = - [facility] [address] [id number] Director: Silvia Irwin MD, Phone: [phone] Detection in cervical specim en of any of human papilloma virus (HPV) 16, 18, 31, 33,Ordered By: Greg Rich on 09-23-2024 HPV 16+18+31+33+35+39+45+51+ 52+56+58+59+66+68 DNA Probe+sig amp Ql (Cvx) Negative Negative [facility] Comment on above: This nucleic acid am plification test detects fourteen high-risk HPV types (16,18,31,33,35,39,45,51,52,56,58,59,66,68)without differentiation. Eosinophil percentageOrdered By: Greg Rich on 09-23-2024 Eosinophils/100 WBC (Bld) 1.2 % 0-5 [facility] Erythrocyte distribution wid th ratioOrdered By: Greg Rich on 09-23-2024 Erythrocyte distribution width (RBC) [Ratio] 14.0 % 11.6-14.6 [facility] Erythrocyte distribution wid th standard deviationOrdered By: Greg Rich on 09-23-2024 Erythrocyte distribution width (RBC) [Entitic vol] 43.3 fL 35.1-43.9 [facility] Erythrocyte distribution width (RBC) [Ratio] 43.3 fl 35.1-43.9 [facility] HBV surface Ag Ql (S)Ordered By: Greg Rich on 09-23-2024 Hepatitis B Surface Antigen Non-Reactive Nonreactive [facility] Comment on above: Reactive: Presumptiv e evidence of HBV. Repeatedly reactive samples must be confirmed using a neutralization test ([employer]s HBsAg Confirmatory Test)Non-Reactive: HBsAg not detected; does not exclude the possibility of exposure to HBV HPV 16+18+31+33+35+39+45+51+ 52+56+58+59+66+68 DNA Probe+sig amp Ql (Cvx)Ordered By: Greg Rich on 09-23-2024 Human Papillomavirus High Risk Negative Negative [facility] Comment on above: This nucleic acid am plification test detects fourteen high-risk HPV types (16,18,31,33,35,39,45,51,52,56,58,59,66,68)without differentiation. Hematocrit Auto (Bld) [Volum e fraction]Ordered By: Greg Rich on 09-23-2024 Hematocrit (Bld) [Volume fraction] 36.9 % Low 37-47 [facility] Hemoglobin A1con 09-23-2024 HbA1c (Bld) [Mass fraction] 5.6 % Low <=5.6 [facility] Comment on above: Performed By: #### L 509.8002 #### [facility] [address] [place] [address], [address] Hemoglobin A1c percentageOrd ered By: Greg Rich on 09-23-2024 HbA1c (Bld) [Mass fraction] 5.6 % Low >5.7 [facility] Hemoglobin measurementOrdere d By: Greg Rich on 09-23-2024 Hemoglobin (Bld) [Mass/Vol] 12.0 g/dL 12.0-15.0 [facility] Hepatitis C antibodyOrdered By: Greg Rich on 09-23-2024 Hepatitis C Antibody Non-Reactive Nonreactive [facility] Comment on above: Reactive: Presumptiv e evidence of antibodies to HCV. Follow CDC recommendations for supplemental testing.Non-Reactive: Antibodies to HCV were not detected; does not exclude the possibility of exposure to HCVReactive Results are presumptive evidence of antibodies to HCV. Follow CDC recommendations for supplemental testing.Order confirmation testing: HCV Quant by PCR testing - HCVPCR #[id number] Non Reactive: < 0.8 Equivocal: >/= 0.8 to < 1.0 Reactive: >/= 1.0The CDC requires that a reactive/equivocal HCV antibody result be sent out for confirmation. HCV Quant by PCR testing. Image-guided ThinPrep PapOrd ered By: Greg Rich on 09-23-2024 Pap Smear Note Comment . [facility] Comment on above: This liquid based Th inPrep(R) pap test was screened withthe use of an image guided system. Image-guided liquid-based Pa pOrdered By: Greg Rich on 09-23-2024 Pap Smear Diagnosis Comment . [facility] Comment on above: NEGATIVE FOR INTRAEP ITHELIAL LESION OR MALIGNANCY. Immature granulocytes/100 WB C Auto (Bld)Ordered By: Greg Rich on 09-23-2024 Immature granulocytes/100 WBC (Bld) 0.300 % 0.0-0.9 [facility] Comment on above: IG% - Immature Granu locytes (promyelocytes, myelocytes and metamyelocytes) > 1% indicates that a LEFT SHIFT is Present. L3890.6006on 09-23-2024 HIV Non-Reactive Normal Nonreactive [facility] Comment on above: Result Comment: Non- Reactive Reactive Repeatedly reactive samples must be confirmed according to CDC recommended confirmatory algorithms. The subresults for either HIVAG or AHIV can be used as an aid in the selection of the confirmation algorithm for reactive samples. Send out specimens with Reactive results to [facility] for confirmation. Order the HIV antibody detection and differentiation: lc#[id number] Performed By: #### L 100.0500 #### [facility] [place], [address] L3890.6102on 09-23-2024 HEP B Surf Ag Non-Reactive Normal Nonreactive [facility] Comment on above: Result Comment: Reac tive: Presumptive evidence of HBV. Repeatedly reactive samples must be confirmed using a neutralization test (Elecsys HBsAg Confirmatory Test) Non-Reactive: HBsAg not detected; does not exclude the possibility of exposure to HBV Performed By: #### L 100.0500 #### [facility] [address] [place], [address] L3890.6301on 09-23-2024 Hepatitis C Ab Non-Reactive Normal Nonreactive [facility] Comment on above: Result Comment: Reac tive: Presumptive evidence of antibodies to HCV. Follow CDC recommendations for supplemental testing. Non-Reactive: Antibodies to HCV were not detected; does not exclude the possibility of exposure to HCV Reactive Results are presumptive evidence of antibodies to HCV. Follow CDC recommendations for supplemental testing. Order confirmation testing: HCV Quant by PCR testing - HCVPCR #[id number] Non Reactive: < 0.8 Equivocal: >/= 0.8 to < 1.0 Reactive: >/= 1.0 The CDC requires that a reactive/equivocal HCV antibody result be sent out for confirmation. HCV Quant by PCR testing. Performed By: #### L 100.0500 #### [facility] [address] [place], [address] L509.4006on 09-23-2024 Rubella IgG REAC Normal Nonreactive [facility] Comment on above: Result Comment: Anti body Result: Interpretation Non-Reactive: Non-Immune Reactive: Immune The following results were obtained with the Elecsys Rubella IgG assay. Results from assays of other manufacturers cannot be used interchangeably. Performed By: #### L 100.0500 #### [facility] [address] [place], [address] L509.8002on 09-23-2024 Syphilis Abs Non-Reactive Normal Nonreactive [facility] Comment on above: Performed By: #### L 100.0500 #### [facility] [address] [place], [address] Laboratory - CytologyOrdered By: Greg Rich on 09-23-2024 Salad Chef Cyto stain Nom (Cvx/Vag) [ID] Comment . [facility] Comment on above: Jorge A Art totechnologist (ASCP) Laboratory - Microbiology an d Antimicrobial susceptibilityOrdered By: Greg Rich on 09-23-2024 HBV surface Ag Ql (S) Non-Reactive Nonreactive [facility] Comment on above: Reactive: Presumptiv e evidence of HBV. Repeatedly reactive samples must be confirmed using a neutralization test (Elecsys HBsAg Confirmatory Test)Non-Reactive: HBsAg not detected; does not exclude the possibility of exposure to HBV Laboratory - Miscellaneous t estsOrdered By: Greg Rich on 09-23-2024 Service comment (Unsp spec) [Interp] . . [facility] Lymphocytes Auto (Unsp spec) [#/Vol]Ordered By: Greg Rich on 09-23-2024 Lymphocytes (Bld) [#/Vol] 2.53 10*3/uL 0.83-4.51 [facility] Lymphocytes/100 WBC Auto (Un sp spec)Ordered By: Greg Rich on 09-23-2024 Lymphocytes/100 WBC (Bld) 20.5 % 19-41 [facility] MCV (mean corpuscular volume ) determinationOrdered By: Greg Rich on 09-23-2024 MCV (RBC) [Entitic vol] 83.9 fL 81-99 [facility] Mean corpuscular hemoglobin (MCH) determinationOrdered By: Greg Rich on 09-23-2024 MCH (RBC) [Entitic mass] 27.3 pg 27.0-32.0 [facility] Mean corpuscular hemoglobin concentration (MCHC) determinationOrdered By: Greg Rich on 09-23-2024 MCHC (RBC) [Mass/Vol] 32.5 g/dL 32-36 [facility] Mean platelet volume determi nationOrdered By: Greg Rich on 09-23-2024 Platelet mean volume (Bld) [Entitic vol] 10.7 fL 6.2-12.0 [facility] Miscellaneous procedureOrder ed By: Greg Rich on 09-23-2024 Miscellaneous Test Comment SEE SCANNED REPORT [facility] Monocyte percentageOrdered B y: Greg Rich on 09-23-2024 Monocytes/100 WBC (Bld) 7.0 % 0-10 [facility] NATERAon 09-23-2024 NATURA SEE SCANNED REPORT Normal [facility] Comment on above: Order Comment: Comme nts: Day #1 Reason for Laboratory Test Performed By: #### L 100.0500 #### [facility] [address] [place], [address] Neisseria gonorrhoeae nuclei c acid detection by amplified probe techniqueOrdered By: Greg Rich on 09-23-2024 N. gonorrhoeae DNA ARIAN+probe Ql (Unsp spec) Negative Negative [facility] Comment on above: Performed at: =[address] [id number] Director: Silvia Irwin MD, Phone: [phone] Neutrophil percentageOrdered By: Greg Rich on 09-23-2024 Neutrophils/100 WBC (Bld) 70.5 % High 47-70 [facility] No Panel InformationOrdered By: Greg Rich on 09-23-2024 Pap Smear Specimen Adequacy Comment . [facility] Comment on above: Satisfactory for rosa luation. No endocervical component is identified.An endocervical component is not commonly seen in the patient. HIV (1&2) Antibody Non-Reactive Nonreactive [facility] Comment on above: Non-ReactiveReactive Repeatedly reactive samples must be confirmed according to CDC recommended confirmatory algorithms. The subresults for either HIVAG or AHIV can be used as an aid in the selection of the confirmation algorithm for reactive samples.Send out specimens with Reactive results to [facility] for confirmation.Order the HIV antibody detection and differentiation: #[id number] Nucleated red blood cell per centageOrdered By: Greg Rich on 09-23-2024 Nucleated RBC/100 WBC (Bld) [Ratio] 0 % 0-5 [facility] Club Car Attendant Office Visit Reporton 09-23-2024 Club Car Attendant Office Visit Report [facility] [address], [address] [place] [address] OFFICE VISIT Date of Service: 09/23/24 MR#: [id number] Acct: [id number] Name: DEMETRIUS FERNANDES Rep #: [id number] : 1990 Provider: ZACHARY Way ams Age/Sex: 34/F [place] [facility] [place] Status: Signed Intake Vital Signs 04/13/21 20:08 [...] occupational status: employed and unemployed current occupation: [employer] current occupational exposures/hazards: No [...] 1-2 times per week duration: 30-45 minutes/day parul/anglican: None seatbelt use: always do you feel safe at home: Yes additional social history: - [place] AUGUSTINE @ [employer] 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 Date Name GA/Weeks Outcome Route Bth Weight Gen Labor Lgth Anesthesia Del Locatn Provider FOB 04/14/21 Whately 41 live - full term 8#2oz Male epidural [facility] [place] Delivery Date: 04/14/21 [...] dates. accepts (more content not included)... Normal [facility] Platelet countOrdered By: Akbar Rich on 09-23-2024 Platelets (Bld) [#/Vol] 294 10*3/uL 150-450 [facility] RBC Auto (Bld) [#/Vol]Ordere d By: Greg Rich on 09-23-2024 RBC (Bld) [#/Vol] 4.40 10*6/uL 4.2-5.4 [facility] Rubella immune status determ ination by IgG antibody assayOrdered By: Greg Rich on 09-23-2024 Rubella IgG Antibody REAC Nonreactive [facility] Comment on above: Antibody Result: Int erpretationNon-Reactive: Non-ImmuneReactive: ImmuneThe following results were obtained with the Elecsys Rubella IgG assay. Results from assays of other manufacturers cannot be used interchangeably. Service comment (Unsp spec) [Interp]Ordered By: Greg Rich on 09-23-2024 Pap Smear Comment (3) . . [facility] T. pallidum abOrdered By: Akbar Rich on 09-23-2024 Syphilis Total Antibody Non-Reactive Nonreactiv e [facility] Type AND Screenon 09-23-2024 ABO and Rh group Nom (Bld) Blood group O Rh(D) negative Normal [facility] Comment on above: Order Comment: Comme nts: Day #1 Reason for Laboratory Test Performed By: #### L 100.0500 #### [facility] [address] [place], [address] Urine cultureOrdered By: Luan Rich on 09-23-2024 Bacteria identified Cx Nom (U) Culture exhibits no growth. [facility] White blood cell (WBC) count Ordered By: Greg Rich on 09-23-2024 WBC (Bld) [#/Vol] 12.3 10*3/uL High 4.4-11.0 [facility] Serum Varicella zoster virus IgG antibody assay by immunoassay (units/volume)Ordered By: Cristina Barros on 03-06-2023 VZV IgG IA Qn (S) 3665 index Immune >165 [facility] Comment on above: Negative <135 Equivo eben 135 - 165 Positive >165A positive result generally indicates exposure to thepathogen or administration of specific immunoglobulins,but it is not indication of active infection or stageof disease.Performed at: - [address] [id number] Director: Jake Ferreira PhD, Phone: [phone] No Panel Informationon 02-19 Rubella IgG Antibody Reactive Nonreactive [facility] Work Phone: Comment on above: Antibody Results Int erpretation of Immune Status Non Reactive Presumed Non-Immune Equivocal Equivocal Reactive Presumed Immune Serum measles virus IgG anti body assay by immunoassay (units/volume)on 02-19-2022 MeV IgG IA Qn (S) 150.0 AU/mL Immune >16.4 [facility] Work Phone: Comment on above: Negative <13.5 Equiv ocal 13.5 - 16.4 Positive >16.4Presence of antibodies to Rubeola is presumptive evidenceof immunity except when acute infection is suspected.Performed at: [address] [id number] Director: Jake Ferreira PhD, Phone: [phone] Serum mumps virus IgG antibo dy assay (units/volume)on 02-19-2022 MuV IgG Qn (S) 16.6 AU/mL Immune >10.9 [facility] Work Phone: Comment on above: Negative <9.0 Equivo eben 9.0 - 10.9 Positive >10.9A positive result generally indicates past exposure toMumps virus or previous vaccination. Vital Signs Date Time Vital Sign Value Performing Clinician Jenelle simmons 03-30-2025 17:29-0400 Body temperature 97 [degF] Erick Brooks SHAREMILKER-C Work Phone: [facility] 03-30-2025 17:29-0400 Diastolic blood pressure 67 mm[Hg] Erick Brooks SHAREMILKER-C Work Phone: [facility] 03-30-2025 17:29-0400 Heart rate 73 /min Reick Penryn SHAREMILKER-C Work Phone: [facility] 03-30-2025 17:29-0400 Respiratory rate 18 /min Erick Brooks SHAREMILKER-C Work Phone: [facility] 03-30-2025 17:29-0400 SaO2% (BldA) [Mass fraction] 98 % Erick Brooks SHAREMILKER-C Work Phone: [facility] 03-30-2025 17:29-0400 Systolic blood pressure 127 mm[Hg] Erick Brooks SHAREMILKER-C Work Phone: [facility] 03-28-2025 05:40-0400 Body height 175.26 cm Erick Penryn SHAREMILKER-C Work Phone: [facility] 03-28-2025 05:40-0400 Body mass index (BMI) [Ratio] 51.5 kg/m2 Erick Penryn SHAREMILKER-C Work Phone: [facility] 03-28-2025 05:40-0400 Body weight 158.3 kg Erick Brooks SHAREMILKER-C Work Phone: [facility] 03-24-2025 10:26-0400 Body height 175.26 cm Erick Brooks SHAREMILKER-C Work Phone: [facility] 03-24-2025 10:26-0400 Body mass index (BMI) [Ratio] 51 kg/m2 Erick Brooks SHAREMILKER-C Work Phone: [facility] 03-24-2025 10:26-0400 Body weight 156.74 kg Erick Penryn SHAREMILKER-C Work Phone: [facility] 03-24-2025 10:26-0400 Diastolic blood pressure 76 mm[Hg] Erick Brooks SHAREMILKER-C Work Phone: [facility] 03-24-2025 10:26-0400 Systolic blood pressure 132 mm[Hg] Erick Penryn SHAREMILKER-C Work Phone: [facility] 03-24-2025 09:10-0400 Body height 175.26 cm Erick Penryn SHAREMILKER-C Work Phone: [facility] 03-24-2025 09:10-0400 Body mass index (BMI) [Ratio] 51.1 kg/m2 Erick Penryn SHAREMILKER-C Work Phone: [facility] 03-24-2025 09:10-0400 Body weight 157 kg Erick Penryn SHAREMILKER-C Work Phone: [facility] 03-24-2025 09:10-0400 Diastolic blood pressure 64 mm[Hg] Erick Penryn SHAREMILKER-C Work Phone: [facility] 03-24-2025 09:10-0400 Heart rate 82 /min Erick Penryn SHAREMILKER-C Work Phone: [facility] 03-24-2025 09:10-0400 Systolic blood pressure 133 mm[Hg] Erick Brooks SHAREMILKER-C Work Phone: [facility] 03-21-2025 10:29-0400 Body height 175.26 cm Erick Brooks SHAREMILKER-C Work Phone: [facility] 03-21-2025 10:29-0400 Body mass index (BMI) [Ratio] 50.5 kg/m2 Erick Penryn SHAREMILKER-C Work Phone: [facility] 03-21-2025 10:29-0400 Body weight 155.29 kg Erick Penryn SHAREMILKER-C Work Phone: [facility] 03-21-2025 10:29-0400 Diastolic blood pressure 72 mm[Hg] Erick Penryn SHAREMILKER-C Work Phone: [facility] 03-21-2025 10:29-0400 Systolic blood pressure 127 mm[Hg] Erick Brooks SHAREMILKER-C Work Phone: [facility] 03-15-2025 10:55-0400 Respiratory rate 16 /min Erick Penryn SHAREMILKER-C Work Phone: [facility] 03-15-2025 10:44-0400 Diastolic blood pressure 66 mm[Hg] Erick Penryn SHAREMILKER-C Work Phone: [facility] 03-15-2025 10:44-0400 Heart rate 74 /min Erick Brooks SHAREMILKER-C Work Phone: [facility] 03-15-2025 10:44-0400 Systolic blood pressure 123 mm[Hg] Erick Penryn SHAREMILKER-C Work Phone: [facility] 03-15-2025 10:40-0400 Body height 175.26 cm Erick Brooks SHAREMILKER-C Work Phone: [facility] 03-15-2025 10:40-0400 Body mass index (BMI) [Ratio] 49.8 kg/m2 Erick Penryn SHAREMILKER-C Work Phone: [facility] 03-15-2025 10:40-0400 Body weight 153 kg Erick Arguetas SHAREMILKER-C Work Phone: [facility] 03-09-2025 10:33-0400 Heart rate 67 /min Erick Brooks SHAREMILKER-C Work Phone: [facility] 03-09-2025 10:33-0400 SaO2% (BldA) [Mass fraction] 96 % Erick Penryn SHAREMILKER-C Work Phone: [facility] 03-09-2025 10:29-0400 Body height 175.26 cm Erick Penryn SHAREMILKER-C Work Phone: [facility] 03-09-2025 10:29-0400 Body mass index (BMI) [Ratio] 50.1 kg/m2 Erick Brooks SHAREMILKER-C Work Phone: [facility] 03-09-2025 10:29-0400 Body weight 154.1 kg Erick Penryn SHAREMILKER-C Work Phone: [facility] 03-09-2025 10:22-0400 Diastolic blood pressure 58 mm[Hg] Erick Brooks SHAREMILKER-C Work Phone: [facility] 03-09-2025 10:22-0400 Systolic blood pressure 122 mm[Hg] Erick Brooks SHAREMILKER-C Work Phone: [facility] 03-09-2025 10:19-0400 Body temperature 97.5 [degF] Erick Penryn SHAREMILKER-C Work Phone: [facility] 03-09-2025 10:19-0400 Respiratory rate 18 /min Erick Brooks SHAREMILKER-C Work Phone: [facility] 03-09-2025 08:55-0400 Body height 175.26 cm Erick Penryn SHAREMILKER-C Work Phone: [facility] 03-09-2025 08:54-0400 Body mass index (BMI) [Ratio] 50.1 kg/m2 Erick Brooks SHAREMILKER-C Work Phone: [facility] 03-09-2025 08:54-0400 Body weight 153.93 kg Erick Penryn SHAREMILKER-C Work Phone: [facility] 03-09-2025 08:54-0400 Diastolic blood pressure 85 mm[Hg] Erick Penryn SHAREMILKER-C Work Phone: [facility] 03-09-2025 08:54-0400 Systolic blood pressure 136 mm[Hg] Erick Penryn SHAREMILKER-C Work Phone: [facility] 02-22-2025 10:03-0400 Body height 175.26 cm Erick Brooks SHAREMILKER-C Work Phone: [facility] 02-22-2025 10:03-0400 Body mass index (BMI) [Ratio] 49.9 kg/m2 Erick Brooks SHAREMILKER-C Work Phone: [facility] 02-22-2025 10:03-0400 Body weight 153.34 kg Erick Penryn SHAREMILKER-C Work Phone: [facility] 02-22-2025 10:03-0400 Diastolic blood pressure 76 mm[Hg] Erick Penryn SHAREMILKER-C Work Phone: [facility] 02-22-2025 10:03-0400 Systolic blood pressure 132 mm[Hg] Erick Brooks SHAREMILKER-C Work Phone: [facility] 02-07-2025 09:25-0400 Body height 175.26 cm Erick Brooks SHAREMILKER-C Work Phone: [facility] 02-07-2025 09:25-0400 Body mass index (BMI) [Ratio] 49 kg/m2 Erick Penryn SHAREMILKER-C Work Phone: [facility] 02-07-2025 09:25-0400 Body weight 150.59 kg Erick Brooks SHAREMILKER-C Work Phone: [facility] 02-07-2025 09:25-0400 Diastolic blood pressure 71 mm[Hg] Erick Rodriguez SHAREMILKER-C Work Phone: [facility] 02-07-2025 09:25-0400 Systolic blood pressure 107 mm[Hg] Erick Smithtings SHAREMILKER-C Work Phone: [facility] 01-24-2025 08:40-0400 Body height 175.[address] Aye Dey DO Work Phone: [facility] 01-24-2025 08:30-0400 Body mass index (BMI) [Ratio] 48.9 kg/m2 Dr. Aye Dey DO Work Phone: [facility] 01-24-2025 08:30-0400 Body weight 150.[address] Aye Dey DO Work Phone: [facility] 01-24-2025 08:30-0400 Diastolic blood pressure 72 mm[Hg] Dr. Aye Dey DO Work Phone: [facility] 01-24-2025 08:30-0400 Systolic blood pressure 124 mm[Hg] Dr. Aye Dey DO Work Phone: [facility] 01-12-2025 09:43-0400 Body height 175.26 cm Greg LUIM Work Phone: [facility] 01-12-2025 09:43-0400 Body mass index (BMI) [Ratio] 48.4 kg/m2 Greg LUIM Work Phone: [facility] 01-12-2025 09:43-0400 Body weight 149 kg Greg LUIM Work Phone: [facility] 01-12-2025 09:43-0400 Diastolic blood pressure 82 mm[Hg] Greg LUIM Work Phone: [facility] 01-12-2025 09:43-0400 Systolic blood pressure 130 mm[Hg] Greg LUIM Work Phone: [facility] 12-16-2024 09:30-0400 Body height 175.26 cm Greg Rich CNM Work Phone: [facility] 12-16-2024 09:06-0400 Body mass index (BMI) [Ratio] 47.2 kg/m2 Greg Rich CNM Work Phone: [facility] 12-16-2024 09:06-0400 Body weight 145.14 kg Greg Rich CNM Work Phone: [facility] 12-16-2024 09:06-0400 Diastolic blood pressure 69 mm[Hg] Greg Rich CNM Work Phone: [facility] 12-16-2024 09:06-0400 Systolic blood pressure 119 mm[Hg] Greg Rich CNM Work Phone: [facility] 11-17-2024 08:40-0400 Body height 175.26 cm Greg Rich CNM Work Phone: [facility] 11-17-2024 08:40-0400 Body mass index (BMI) [Ratio] 46.8 kg/m2 Greg Rich CNM Work Phone: [facility] 11-17-2024 08:40-0400 Body weight 144.01 kg Greg Rich CNM Work Phone: [facility] 11-17-2024 08:40-0400 Diastolic blood pressure 80 mm[Hg] Greg Rich CNM Work Phone: [facility] 11-17-2024 08:40-0400 Systolic blood pressure 126 mm[Hg] Greg Rich CNM Work Phone: [facility] 10-22-2024 10:18-0400 Body mass index (BMI) [Ratio] 46 kg/m2 Greg LUIM Work Phone: [facility] 10-22-2024 10:18-0400 Body weight 141.57 kg Greg Rich CNM Work Phone: [facility] 10-22-2024 10:18-0400 Diastolic blood pressure 76 mm[Hg] Greg LUIM Work Phone: [facility] 10-22-2024 10:18-0400 Systolic blood pressure 119 mm[Hg] Greg LUIM Work Phone: [facility] 09-23-2024 09:08-0400 Body height 175.26 cm Greg Rich CNM Work Phone: [facility] 09-23-2024 09:05-0400 Body mass index (BMI) [Ratio] 45.6 kg/m2 Greg Rich CNM Work Phone: [facility] 09-23-2024 09:05-0400 Body weight 140.27 kg Greg Rich CNM Work Phone: [facility] 09-23-2024 09:05-0400 Diastolic blood pressure 67 mm[Hg] Greg Rich CNM Work Phone: [facility] 09-23-2024 09:05-0400 Systolic blood pressure 121 mm[Hg] Greg Rich CNM Work Phone: [facility] Encounters Encounter Date Encounter Type Care Provider Facility Start: 04-11-2025 ambulatory Delmar Almanzar lity:[facility] Start: 03-31-2025 End: 03-31-2025 ambulatory Delmar Luna Facility:[facility] Start: 03-30-2025 Non-patient / Non-visit Dr. Fiordaliza Zhong MD -[facility] Start: 03-29-2025 Non-patient / Non-visit Greg Rich CNM -[facility] Start: 03-28-2025 Non-patient / Non-visit Dr. Fiordaliza Zhong MD -[facility] Start: 03-28-2025 ambulatory Fiordaliza Almanzar lity:[facility] Start: 03-28-2025 End: 03-30-2025 Evaluation and management of inpatient Dr. Fiordaliza Zhong MD -[facility] Work Phone: Start: 03-27-2025 ambulatory Fiordaliza Almanzar lity:[facility] Start: 03-27-2025 Non-patient / Non-visit Dr. Fiordaliza Zhong MD -[facility] Start: 03-24-2025 Non-patient / Non-visit Dr. Fiordaliza Zhong MD -[facility] Start: 03-24-2025 End: 03-24-2025 ambulatory Erick Rodriguez SHAREMILKER-C Work Phone: [facility] Start: 03-24-2025 End: 03-24-[address] Fiordaliza Zhong MD -[facility] Work Phone: Start: 03-21-2025 End: 03-21-2025 ambulatory [facility] Start: 03-21-2025 End: 03-21-2025 ambulatory [facility] Start: 03-21-[address] Fiordaliza Zhong MD -[facility] Work Phone: Start: 03-21-2025 End: 03-21-2025 ambulatory Erick Rodriguez SHAREMILKER-C Work Phone: -[facility] Start: 03-21-2025 End: 03-21-[address] Fiordaliza Zhong MD -[facility] Work Phone: Start: 03-21-2025 End: 03-21-2025 ambulatory Fiordaliza Zhong Facility:[facility] Start: 03-17-2025 End: 03-17-2025 ambulatory [facility] Start: 03-16-2025 End: 03-16-2025 ambulatory AYE Alicia [facility] Start: 03-15-2025 Non-patient / Non-visit Dr. Fiordaliza Zhong MD -[facility] Start: 03-15-2025 End: 03-15-2025 ambulatory Erick Rodriguez SHAREMILKER-C [facility] Start: 03-15-2025 End: 03-15-[address] [facility] Work Phone: Start: 03-11-2025 End: 03-11-2025 ambulatory GREG Kodak LAYLA [facility] Start: 03-09-2025 ambulatory Damienrosy Luna Jenelle knighty:[facility] Start: 03-09-2025 Non-patient / Non-visit Dr. Aye Dey DO -[facility] Start: 03-09-2025 End: 03-09-[address] Aye Dey DO -[facility] Work Phone: Start: 03-09-2025 End: 03-09-2025 ambulatory Erick Rodriguez SHAREMILKER-C Work Phone: -[facility] Start: 03-07-2025 End: 03-07-2025 [facility]ulatory [facility] Start: 02-22-2025 End: 02-22-2025 Patient encounter procedure Greg Rich [facility] -[facility] Work Phone: Start: 02-22-2025 End: 02-22-2025 ambulatory Erick Rodriguez SHAREMILKER-C Work Phone: -[facility] Start: 02-07-2025 End: 02-07-[address] Aye Dey DO -[facility] Work Phone: Start: 02-07-2025 End: 02-07-2025 ambulatory Erick Rodriguez SHAREMILKER-C Work Phone: -[facility] Start: 01-25-2025 End: 01-25-[address] Aye Dey DO Work Phone: -Laboratory Start: 01-25-2025 End: 01-25-2025 Patient encounter procedure Erick Rodriguez SHAREMILKER-C -Laboratory Work Phone: Start: 01-24-2025 End: 01-24-2025 Patient encounter procedure Erick Rodriguez SHAREMILKER-C -[facility] Work Phone: Start: 01-24-2025 End: 01-25-[address] Aye Dey DO Work Phone: -[facility] Start: 01-24-2025 End: 01-24-2025 ambulatory Erickpatti Arguetas Facility:[facility] Start: 01-12-2025 End: 01-12-2025 Patient encounter procedure Erick Rodriguez SHAREMILKER-C -[facility] Work Phone: Start: 01-12-2025 End: 01-12-2025 ambulatory Greg LUIM Work Phone: -[facility] Start: 12-16-2024 End: 12-16-[address] Fiordaliza Zhong MD -[facility] Work Phone: Start: 12-16-2024 End: 12-16-2024 ambulatory Greg Rich CNM Work Phone: [facility] Work Phone: Start: 11-23-2024 End: 11-23-2024 ambulatory GREG RICH [facility] Start: 11-17-2024 End: 11-17-2024 Patient encounter procedure Erick Rodriguez SHAREMILKER-C -[facility] Work Phone: Start: 11-17-2024 End: 11-17-2024 ambulatory Greg Rich CNM Work Phone: [facility] Work Phone: Start: 11-17-2024 End: 11-17-2024 ambulatory Erickpatti Arguetas Facility:[facility] Start: 10-22-2024 End: 10-22-[address] Aye Dey DO -[facility] Work Phone: Start: 10-22-2024 End: 10-22-2024 ambulatory Aye Dey Facility:[facility] Start: 10-04-2024 End: 10-04-2024 ambulatory Greg Rich CNM Work Phone: [facility] Work Phone: Start: 10-04-2024 End: 10-04-[address] Aye Dey DO -Lab, [facility] Start: 10-04-2024 End: 10-04-2024 ambulatory Aye Dey Facility:[facility] Start: 09-23-2024 End: 09-23-2024 Patient encounter procedure Greg LUIM -[facility] Work Phone: Start: 09-23-2024 End: 09-23-2024 ambulatory Greg LUIM Work Phone: [facility] Work Phone: Start: 09-23-2024 End: 09-23-2024 ambulatory Greg Rich Facility:[facility] Start: 03-06-2023 End: 03-06-2023 ambulatory [facility] Work Phone: Start: 03-06-2023 End: 03-06-2023 [facility] Start: 02-19-2022 End: 02-19-2022 Patient encounter procedure [facility] Procedures Date Procedure Procedure Detail Performing Clinician Start: 03-28-2025 Serologic test for syphilis Erick briceño SHAREMILKER-C Work Phone: Start: 03-21-2025 Beta-hemolytic Streptococcus culture Erick Rodriguez SHAREMILKER-C Work Phone: Start: 01-24-2025 Serologic test for syphilis Dr. Aye Dey DO Work Phone: Start: 11-17-2024 Procedure Greg Rich CNM Work Phone: Comment on above: Test Ordered: [id number] AFP, Serum, Open Sp jeb BifidaResults Report [...] Open Spina Bifida RiskFor further inquiries contact [employer] at [phone].This test was developed and its performance characteristicsdetermined by [employer]. It has not been cleared or approvedby the Food and Drug Administration.Performed at: TG - [facility] [id number] [place], [place] [id number] Director: Cara Lanza [facility], Phone: [phone] at: CB - [facility] [address] [id number] Director: Jake Ferreira PhD, Phone: [phone] Test Ordered: [id number] AFP, Serum, Open Spina BifidaResults Comment TG Reference Range: .The MOM and risk factors of this report have been modifiedbased on new information supplied to us by the client ortheir designated sales representative raw fibers.The Weight was changed from Not provided. to [...] Open Spina Bifida RiskFor further inquiries contact [employer] at [phone].This test was developed and its performance characteristicsdetermined by [employer]. It has not been cleared or approvedby the Food and Drug Administration.Performed at: - [facility] [id number] Alfred[address] [facility], [facility], [place] [id number] Director: Cara Lanza [facility], Phone: [phone] at: [address] [id number] Director: Jake Ferreira PhD, Phone: [phone] reported result: COMMENT Edited by: GISELA on 11/23/24:1609 AMENDED REPORT 11/23/24 1609 [facility] previously reported as: COMMENT Test Ordered: [id number] AFP, Serum, Open Spina BifidaResults Report TG [...] Open Spina Bifida RiskFor further inquiries contact [facility] at [phone].This test was developed and its performance characteristicsdetermined by [employer]. It has not been cleared or approvedby the Food and Drug Administration.Performed at: [facility] [employer] [id number] Alfred[address] [facility], [facility], [place] [id number] Director: Cara Lanza [facility], Phone: [phone] at: [facility] [address] [id number] Director: Jake Ferreira PhD, Phone: [phone] Start: 10-04-2024 Procedure Greg Rich [facility] Work Phone: Start: 09-23-2024 Liquid based cervical cytology screening Greg Rich [facility] Work Phone: Comment on above: NEGATIVE FOR INTRAEPITHELIAL LESION OR M ALIGNANCY. This liquid based Th inPrep(R) pap test was screened withthe use of an image guided system. Start: 09-23-2024 Urine culture Greg Rich [facility] Work Phone: Start: 09-23-2024 Hepatitis C antibody measurement Greg collazo [facility] Work Phone: Comment on above: Reactive: Presumptive evidence of antibo dies to HCV. Follow CDC recommendations for supplemental testing.Non-Reactive: Antibodies to HCV were not detected; does not exclude the possibility of exposure to HCVReactive Results are presumptive evidence of antibodies to HCV. Follow CDC recommendations for supplemental testing.Order confirmation testing: HCV Quant by PCR testing - HCVPCR #[id number] Non Reactive: < 0.8 Equivocal: >/= 0.8 to < 1.0 Reactive: >/= 1.0The CDC requires that a reactive/equivocal HCV antibody result be sent out for confirmation. HCV Quant by PCR testing. Start: 09-23-2024 Procedure Greg Rich [facility] Work Phone: Start: 09-23-2024 Rubella IgG measurement Greg Rich [facility] Work Phone: Comment on above: Antibody Result: InterpretationNon-React macario: Non-ImmuneReactive: ImmuneThe following results were obtained with the Elecsys Rubella IgG assay. Results from assays of other manufacturers cannot be used interchangeably. Start: 09-23-2024 Serologic test for syphilis Greg Blair [facility] Work Phone: Plan of Treatment Date Care Activity Detail Author Start: 03-30-2025 Patient discharge [facility] Start: 03-29-2025 Application of abdom inal corset [facility] Start: 03-28-2025 End: 03-29-2025 [facility] Start: 03-28-2025 Administration of bl ood product [facility] Start: 03-28-2025 Administration of bl ood product [facility] Start: 03-28-2025 Ambulation therapy management [facility] Start: 03-28-2025 Application of device [facility] Start: 03-28-2025 End: 03-28-2025 Application of intermittent pneumatic compression device [facility] Start: 03-28-2025 Assessment of risk o f venous thromboembolism [facility] Start: 03-28-2025 Catheterization of vein [facility] Start: 03-28-2025 Continuous pulse oximetry [facility] Start: 03-28-2025 Deep breathing and c oughing exercises [facility] Start: 03-28-2025 Exercises [facility] Start: 03-28-2025 Measuring intake and output [facility] Start: 03-28-2025 Notification of physician [facility] Start: 03-28-2025 Oxygen therapy [facility] Start: 03-28-2025 Procedure discontinued [facility] Start: 03-28-2025 Provision of activit y privileges [facility] Start: 03-28-2025 Skin care [facility] Start: 03-28-2025 Vital signs measurements [facility] Start: 03-28-2025 Wound care [facility] Start: 03-28-2025 Application of abdom inal corset [facility] Start: 03-28-2025 section Primary C Sec tion (Not Applicable) [facility] Start: 03-28-2025 Admission procedure [facility] Start: 03-24-2025 Patient discharge [facility] Start: 03-15-2025 Nonstress test [facility] Start: 03-15-2025 Obstetric monitoring [facility] Start: 03-15-2025 Vital signs measurements [facility] Start: 03-15-2025 [facility] Start: 03-15-2025 Patient discharge [facility] Start: 03-09-2025 Nonstress test [facility] Start: 03-09-2025 Obstetric monitoring [facility] Start: 03-09-2025 Vital signs measurements [facility] Start: 03-09-2025 [facility] Start: 03-09-2025 Patient discharge [facility] Start: 01-24-2025 CBC W Auto Different ial panel - Blood [facility] Start: 01-24-2025 Measurement of gluco se 2 hours after glucose challenge for glucose tolerance test [facility] Start: 01-24-2025 Serologic test for syphilis [facility] Start: 01-24-2025 [facility] CBC W Auto Different ial panel - Blood [facility] Erythrocyte mean cor puscular volume determination [facility] Hematocrit [Volume F raction] of Blood [facility] Hemoglobin [Mass/vol ume] in Blood [facility] Leukocytes [#/volume ] in Blood [facility] Mean corpuscular hem oglobin concentration determination [facility] Mean corpuscular hem oglobin determination [facility] Measurement of gluco se 2 hours after glucose challenge for glucose tolerance test [facility] Neutrophil count [facility] Neutrophil percent differential count [facility] Patient Education [facility] Work Phone: Platelets [#/volume] in Blood [facility] Red blood cell count [facility] Red cell distributio n width determination [facility] Serologic test for syphilis [facility] Streptococcus agalac tiae [Presence] in Unspecified specimen by Organism specific culture [facility] Immunizations Immunization Date Immunization Notes Care Provider Dwayne samson 01-24-2025 tetanus toxoid, redu lashon diphtheria toxoid, and acellular pertussis vaccine, adsorbed Dr. Aye Dey DO Work Phone: [facility] 01-12-2021 tetanus toxoid, redu lashon diphtheria toxoid, and acellular pertussis vaccine, adsorbed [facility] Payers Date Payer Category Payer Self-pay [id number] [id number] Unknown [id number] 1989 Unknown [id number] 2.16.840.1.317622.3.579.2.479 1989 Unknown [id number] 2.16.840.1.870291.3.579.2.479 1989 Unknown [id number] 2.16.840.1.304742.3.579.2.479 1989 Unknown [id number] 2.16.840.1.952499.3.579.2.479 1989 Unknown [id number] 2.16.840.1.230107.3.579.2.479 1989 Unknown [id number] 2.16.840.1.800153.3.579.2.479 1989 Unknown [id number] 2.16.840.1.428213.3.579.2.479 1989 Unknown [id number] 2.16.840.1.852535.3.579.2.479 Unknown [id number] Unknown [id number] Unknown [id number] Unknown [facility]80 * * DO NOT USE [id number] Unknown [id number] 2.16.840.1.545927.3.579.2.462 Unknown [id number] 2.16.840.1.392805.3.579.2.462 Unknown [id number] 2.16.840.1.352448.3.579.2.462 Unknown [id number] 2.16.840.1.649243.3.579.2.462 Unknown [id number] 2.16.840.1.942119.3.579.2.462 Unknown [id number] 2.16.840.1.614681.3.579.2.462 Unknown [id number] 2.16.840.1.216723.3.579.2.462 Unknown [id number] 2.16.840.1.321025.3.579.2.462 Unknown [id number] 2.16.840.1.626355.3.579.2.462 Unknown [id number] 2.16.840.1.863672.3.579.2.462 Unknown [id number] 2.840.1.596902.3.579.2.462 Unknown [id number] 2..840.1.584678.3.579.2.462 Unknown [id number] 2.840.1.083149.3.579.2.462 Unknown [id number] 2.840.1.792309.3.579.2.462 Unknown [id number] 2.840.1.333134.3.579.2.462 Unknown [id number] 2.16.840.1.403944.3.579.2.462 Unknown [id number] 2.840.1.094909.3.579.2.462 Unknown [id number] 2.840.1.551633.3.579.2.462 Unknown [id number] 2.16.840.1.407964.3.579.2.462 Unknown [id number] 2.16840.1.375414.3.579.2.462 Unknown [id number] 2.16.840.1.185444.3.579.2.462 Unknown [id number] 2.16.840.1.472899.3.579.2.462 Unknown [id number] 2.840.1.907646.3.579.2.462 Unknown [id number] 2.16.840.1.465289.3.579.2.462 Unknown [id number] 2.16.840.1.480471.3.579.2.462 Unknown [id number] 2.16.840.1.660624.3.579.2.462 Unknown [id number] 2.16.840.1.247419.3.579.2.462 Unknown [id number] 2.16840.1.507843.3.579.2.462 Unknown [id number] 2.16.840.1.402097.3.579.2.462 Unknown [id number] 2.840.1.958700.3.579.2.462 Unknown [id number] 2.840.1.745045.3.579.2.462 Social History Date Type Detail Facility Start: 05-30-2021 Tobacco smoking stat [facility] Unknown if ever smoked [facility] Start: 1990 Sex Assigned At Female [facility] Start: 09-14-2024 End: 03-28-2025 Tobacco smoking status MIIS Ex-smoker (finding) [facility] Start: 10-04-2024 End: 10-09-2024 Sex Female (finding) [facility] Patient currentl y [facility] Medical Equipment Procedure Code Equipment Code Equipment Origin al Text Equipment Identifier Dates Blood Sugar Diagnostic (Advanced Gluc Meter Test Strip) strip Start: 03-07-2025 Lancets [facility] Start: 03-07-2025 Blood Sugar [...] 03-30-2025 Functional status Activity Ability Indepe ndent [facility] Work Phone: Mental Status Date Assessment Result Facility 03-28-2025 Cognitive function Level Of Consciousness Awake [facility] Work Phone: Clinical Notes 09-23-2024 to 03-30-2025 Note Date & Type Note Facility 03-30-2025 Progress note [facility] 03-30-2025 Discharge summary Note Date/Time March 30, 2025 3:11pm [facility] Medical Records Department [address] [place] [address] Instructions for Home/Discharge Instructions 03/28/25 0719 MR#: [id number] Acct: [id number] Name: DEMETRIUS FERNANDES Rep #:[id number] : 1990 34 From: Fiordaliza moctezuma MD [...] Up With: Fiordaliza Zhong MD When: Call [phone] to make an appointment for an incision [...] mg PO DAILY (DME) FreeStyle Hardeep 2 [place] Misc See Rx Instructions .ROUTE .MEDSUPPLY Qty: [...] CC: Dr. Delmar Luna MD ~ Signed [facility] Work Phone: 1(779) 155-618509-17-2025 Discharge summary [facility] Medical Records Department [address] [place] [address] Instructions for Home/Discharge Instructions 03/28/25 0719 MR#: [id number] Acct: [id number] Name: DEMETRIUS FERNANDES Rep #:[id number] : 1990 34 From: Fiordaliza moctezuma MD [...] Up With: Fiordaliza Zhong MD When: Call [phone] to make an appointment for an incision [...] mg PO DAILY (DME) FreeStyle Hardeep 2 [place] Misc See Rx Instructions .ROUTE .MEDSUPPLY Qty: [...] CC: Dr. Delmar Luna MD ~ Signed [facility]09-17-2025 Progress note Author Fiordaliza Zhong [facility] Note Date/Time March 30, 2025 5:41pm [facility] Medical Records Department [address] [place] [address] Progress Note - OBGYN 03/30/25 0758 MR#: [id number] Acct: [id number] Name: DEMETRIUS FERNANDES Rep #:[id number] : 1990 34 From: Fiordaliza moctezuma MD PCP: Dr. Delmar Luna MD Status :ADM IN Location: [place] [address] Subjective Subjective Patient doing well without complaints. [...] Cosigner Signature (if applicable): CC: ~ Signed [facility] Work Phone: 1(484) 308-918909-17-2025 Procedure note [facility] Medical Records Department [address] [place] [address] Operative Report 03/28/25 0716 MR#: [id number] Acct: [id number] Name: DEMETRIUS FERNANDES Rep #:[id number] : 1990 34 From: Fiordaliza moctezuma MD PCP: Dr. Delmar Luna MD Status :ADM IN Location: [id number] Assessment & Plan (1) Pre-existing severe obesity [...] twice weekly ANFS-BPP and NST. Consult with [facility] ordered. deliver at 37 weeks scheduled [...] Description: 3 Vessels Delayed Cord Clamping: Yes Consultant Teacher electronic publications specialist: Yes Mental Health Aides Teacher: Catracho Davison Tasks completed by assistant women's rowing coach: Opening & closing, Retracting and Other (assisting in deliveryof the ) Additional sales office assistant?: No Complications Complications: No Admit VTE Documentation VTE Present on Admission: No VTE Mechan Device Prophylaxis: SCD's Procedures Urinary/Genital 52xxx-59xxx: 38800 Delivery global pk 03/30/25 0800 Cosigner Signature (if applicable): CC: Dr. Delmar Luna MD; Dr. Fiordaliza Zhong MD~ Signed [facility]09-16-2025 Progress note Author Greg Rich [facility] Note Date/Time March 29, 2025 8:21am [facility] Medical Records Department [address] [place] [address] Progress Note - OBGYN 03/29/25 0818 MR#: [id number] Acct: [id number] Name: DEMETRIUS FERNANDES Rep #:[id number] : 1990 34 From: Greg Rich CNM PCP: Dr. Delmar Lnua MD Status :ADM IN Location: BT740-2 Subjective Subjective Patient doing well without complaints. [...] Cosigner Signature (if applicable): CC: ~ Signed [facility] Work Phone: 1(656) 343-760709-16-2025 Progress note [facility] Medical Records Department [address] [place] [address] Progress Note - OBGYN 03/29/25817 MR#: [id number] Acct: [id number] Name: DEMETRIUS FERNANDES Rep #:[id number] : 1990 34 From: Greg Rich CNM PCP: Dr. Delmar Luna MD Status :ADM IN [facility] Subjective Subjective Patient doing well without complaints. [...] Cosigner Signature (if applicable): CC: ~ Signed [facility]09-14-2025 History and physical note Author Fiordaliza Zhong [facility] Note Date/Time March 27, 2025 12:28pm [facility] Medical Records Department [address] [place] [address] History & Physical Exam 03/27/25 1227 MR#: [id number] Acct: [id number] Name: DEMETRIUS FERNANDES Rep #:[id number] : 1990 34 From: Fiordaliza moctezuma MD PCP: Dr. Delmar Luna MD Status :PRE IN Location: [facility] History and Physical Date of Admission: 03/28/25 Vital Signs 03/24/2509:10 03/24/2510:26 Height 5 ft 9 in 5 ft 9 in Weight: 345 lb 9 oz BMI 51.0 BP 132/76 H Intake Visit Reasons: 37wk ob before csection *per Streaming Media Specialist Required: No Is patient in pain?: No [...] ea 03/07/25 03/24/25 Rx (FreeStyle Hardeep 2 [place]) lancets #200 ea 03/07/25 03/24/25 Rx Last [...] occupational status: employed and unemployed current occupation: [employer] current occupational exposures/hazards: No [...] 1-2 times per week duration: 30-45 minutes/day parul/anglican: None seatbelt use: always do you feel [...] Lgth Anesthesia Del Locat Provider FOB 04/14/21 Whately 41 live - full term 8#2oz Mal e epidural [facility] GP Froil[place] Delivery Date: 04/14/21 [...] NIPT-very concerned about weight with this . [facility] anatomy order placed 10/22/24-?-?-?-?-?-?-?-?-?-?-?-?- 14w 5d 312 lb 2 oz(+3 lb 2 oz) 119/76 Negative -?-?-?-?-?-?-?--?-?-?-?-?- Negative 168 -?-?-?-?-?-?-?-?-?-?-?-?- JV- nipt was inconclusive. plan for afp between 17-21 weeks. anatomy scan with [facility]. 11/17/24-?-?-?-?-?-?-?-?-?-?-?-?- 18w 3d 317 lb 8 [...] Luna MD; Dr. Fiordaliza Zhong MD~ Signed [facility] Work Phone: 1(889) 480-572809-14-2025 History and physical note [facility] Medical Records Department [address] [place] [address] History & Physical Exam 03/27/25 1227 MR#: [id number] Acct: [id number] Name: DEMETRIUS FERNANDES Rep #:[id number] : 1990 34 From: Fiordaliza moctezuma MD PCP: Dr. Delmar Luna MD Status :PRE IN Location: [facility] History and Physical Date of Admission: 03/28/25 Vital Signs 03/24/2509:10 03/24/2510:26 Height 5 ft 9 in 5 ft 9 in Weight: 345 lb 9 oz BMI 51.0 BP 132/76 H Intake Visit Reasons: 37wk ob before csection *per Streaming Media Specialist Required: No Is patient in pain?: No [...] ea 03/07/25 03/24/25 Rx (FreeStyle Hardeep 2 [place]) lancets #200 ea 03/07/25 03/24/25 Rx Last [...] occupational status: employed and unemployed current occupation: [employer] current occupational exposures/hazards: No pets and [...] 1-2 times per week duration: 30-45 minutes/day parul/anglican: None seatbelt use: always do you feel safe at home: Yes additional social history: - Froilan GUARDADON @ [employer] 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 Date Name GA/Weeks Outcome Route Bth Weight Infant Gen Labor Lgth Anesthesia Del Locatn Provider FOB 04/14/21 Timmy 41 live - full term 8#2oz Mal e epidural [facility] GP Froilan Delivery Date: 04/14/21 [...] Symptoms of Preeclampsia, Infant Feeding No , [place] [employer] and Family Medical Leave or Disability [...] General: cooperative, healthy appearing, comfortable and anxious [facility] Head: normal to inspection Nose: [...] 36. plan RLTCS 37 weeks recommend by [facility] due to polyhydramnios severe 03/27/25 1228 Cosigner Signature (if applicable): CC: Dr. Delmar Luna MD; Dr. Fiordaliza Zhong MD~ Signed [facility]09-14-2025 [facility] Medical Records Department [address] [facility] [place] [address] History Physical Exam 03/27/25 1227 MR#: [id number] Acct: [id number] Name: DEMETRIUS FERNANDES Rep #: [id number] : 1990 34 From: Fiordaliza Zhong MD PCP: Dr. Delmar Luna MD Status:PRE IN Location: [facility] History and Physical Date of Admission: 03/28/25 Vital Signs 03/24/2509:10 03/24/2510:26 Height 5 ft 9 in 5 ft 9 in Weight: 345 lb 9 oz BMI 51.0 BP 132/76 H Intake Visit Reasons: 37wk ob before csection *per SM Streaming Media Specialist Required: No Is patient in pain?: No [...] ea 03/07/25 03/24/25 Rx (FreeStyle Hardeep 2 [place]) lancets #200 ea 03/07/25 03/24/25 Rx Last [...] occupational status: employed and unemployed current occupation: [employer] current occupational exposures/hazards: No pets and [...] 1-2 times per week duration: 30-45 minutes/day parul/anglican: None seatbelt use: always do you feel safe at home: Yes 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 Date Name GA/Weeks Outcome Route Bth Weight Infant Gen Labor Lgth Anesthesia Del [facility] Provider FOB 04/14/21 Whately 41 live - full term 8#2oz Male epidura l [facility] GP Froilan Delivery Date: 04/14/21 [...] Pres Dilation -???-???-???-???-???-???-???-???-???-???-???-???- Effaced (more content not included)...[facility]09-11-2025 Progress [facility] [address] [place] [address], [address] [place] [address] OFFICE VISIT Date of Service: 03/24/25 MR#: [id number] Acct: [id number] Name: DEMETRIUS FERNANDES Rep #: [id number] : 1990 Provider: Dr. Luther Zhong MD Age/Sex: 34/F Location: [facility] Status: Signed Intake Vital Signs 03/24/25 09:10 03/24/25 10:26 Height 5 ft 9 in 5 ft 9 in Weight: 345 lb 9 oz BMI 51.0 BP 132/76 H Intake Visit Reasons: 37wk ob before csection *per Streaming Media Specialist Required: No Is patient in pain?: No [...] ea 03/07/25 03/24/25 Rx (FreeStyle Hardeep 2 [place]) lancets #200 ea 03/07/25 03/24/25 Rx Last [...] occupational status: employed and unemployed current occupation: [employer] current occupational exposures/hazards: No pets and [...] 1-2 times per week duration: 30-45 minutes/day parul/anglican: None seatbelt use: always do you feel safe at home: Yes 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 Date Name GA/Weeks Outcome Route Bth Weight Infant Gen Labor Lgth Anesthesia Del Locatn Provider FOB 04/14/21 Timmy 41 live - full term 8#2oz Male epidur al [facility] GP Froilan Delivery Date: 04/14/21 [...] NIPT-very concerned about weight with this . [facility] anatomy order placed 10/22/24 -?-?-?-?-?-?-?-?-?-?-?-?- 14w 5d 312 lb 2 oz (+3 lb 2 oz) 119/76 Negative -?-?-?-?-?-?-?-?-?-?-?-?- Negative 168 -?-?-?-?-?-?-?-?-?-?-?-?- JV- nipt was inc onclusive. plan for afp between 17-21 weeks. anatomy scan with [facility]. 11/17/24 -?-?-?-?-?-?-?-?-?-?-?-?- 18w 3d 317 lb [...] higinio MEDINA> Date _ [facility]ordaliza Zh[facility] Signature: Date (if applicable) CC: ~ [facility]09-11-2025 Progress note [facility] Medical Records Department [address] [place] [address] OB Triage Progress Note 03/24/25 1004 MR#: [id number] Acct: [id number] Name: DEMETRIUS FERNANDES Rep #:[id number] : 1990 34 From: Fiordaliza moctezuma MD PCP: Dr. Delmar Luna MD Status :REG CLI Y DOS: Location: [place] [address] Progress Notes Date of Service: 03/24/25 Progress Note: Patient presents for triage evaluation secondary to polyhydramnios FHT: 135 Moderate variability reactive no decelerations category I tracing [place]: no regular Contractions Assessment and plan: 36 weeks severe polyhydramnios Reactive NST, reassuring maternal and status patient discharged to home to follow-up as scheduled. See problem list details for additional plan information. Charges/Coding Procedures Urinary/Genital 52xxx-59xxx: 03317-92 non-stress test Interp 03/24/25 Cleo sylvester MD> Date _ Fiordaliza Zhong MD Cosigner Signature (if applicable): Date CC: Dr. Delmar Luna MD; Dr. Fiordaliza Zhong MD ~ Signed [facility]09-08-2025 Progress [facility] [address], [address] [place] [address] OFFICE VISIT Date of Service: 03/21/25 MR#: [id number] Acct: [id number] Name: DEMETRIUS FERNANDES Rep #: [id number] : 1990 Provider: Dr. Luther Zhong MD Age/Sex: 34/F Location: [facility] Status: Signed Intake Vital Signs 01/24/25 08:40 03/09/25 10:29 03/15/25 10:40 03/21/25 10:29 Height 5 ft 9 in 5 ft 9 in 5 ft 9 in 5 ft 9 in Weight: 342 lb 6 oz BMI 50.5 BP 127/72 H Intake Visit Reasons: 36 wk ob Streaming Media Specialist Required: No Is patient in pain?: No [...] ea 03/07/25 03/21/25 Rx (FreeStyle Hardeep 2 [place]) lancets #200 ea 03/07/25 03/21/25 Rx Last [...] occupational status: employed and unemployed current occupation: [email or web address] current occupational exposures/hazards: No pets and animals: [...] 1-2 times per week duration: 30-45 minutes/day parul/anglican: None seatbelt use: always do you feel safe at home: Yes 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 Date Name GA/Weeks Outcome Route Bth Weight Gen Labor Lgth Anesthesia Del Locatn Provider FOB 04/14/21 Whately 41 live - full term 8#2oz Male epidur al [facility] GP Froilan Delivery Date: 04/14/21 [...] NIPT-very concerned about weight with this . [facility] anatomy order placed 10/22/24 -?-?-?-?-?-?-?-?-?-?-?-?- 14w 5d 312 lb 2 oz (+3 lb 2 oz) 119/76 Negative -?-?-?-?-?-?-?-?-?-?-?-?- Negative 168 -?-?-?-?-?-?-?-?-?-?-?-?- JV- nipt was inc onclusive. plan for afp between 17-21 weeks. anatomy scan with [facility]. 11/17/24 -?-?-?-?-?-?-?-?-?-?-?-?- 18w 3d 317 lb [...] Cosign Signature: Date (if applicable) CC: ~ [facility]09-02-2025 Progress note [facility] Medical Records Department [address] [facility] [place] [address] OB Triage Progress Note 03/15/25 1110 MR#: [id number] Acct: [id number] Name: DEMETRIUS FERNANDES Rep #:[id number] : 1990 34 From: Fiordaliza moctezuma MD PCP: Dr. Delmar Luna MD Status :REG CLI Y DOS: Location: [place] [address] Progress Notes Date of Service: 03/15/25 Progress Note: Patient presents for triage evaluation secondary to polyhydramnios FHT: 130-135 Moderate variability reactive no decelerations category I tracing [place]: no regular Contractions Assessment and plan: polyhydramnios 35 weeks Reactive NST, reassuring maternal and status patient discharged to home to follow-up as scheudled. See problem list details for additional plan information. Charges/Coding Procedures Urinary/Genital 52xxx-59xxx: 81897-66 non-stress test Interp Assessment & Plan (1) [...] higinio MEDINA> Date _ Fiordaliza Zhong MD [facility] Signature (if applicable): Date CC: Dr. Delmar Luna MD; Dr. Fiordaliza Zhong MD ~ Signed [facility]08-12-2025 Progress [facility] [address], [address] [place] [address] OFFICE VISIT Date of Service: 02/22/25 MR#: [id number] Acct: [id number] Name: DEMETRIUS FERNANDES Rep #: [id number] : 1990 Provider: ZACHARY Rich Age/Sex: 34/F Location: [facility] Status: Signed Intake Vital Signs 01/12/25 09:43 02/07/25 09:25 02/22/25 10:03 Height 5 ft 9 in 5 ft 9 in 5 ft 9 in Weight: 338 lb 1 oz BMI 49.9 BP 132/76 H Intake Visit Reasons: 32 wk ob Chief Complaint: 32 wk OB Streaming Media Specialist Required: No Is patient in pain?: No [...] occupational status: employed and unemployed current occupation: [employer] current occupational exposures/hazards: No pets and [...] 1-2 times per week duration: 30-45 minutes/day parul/anglican: None seatbelt use: always do you feel safe at home: Yes 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 Date Name GA/Weeks Outcome Route Bth Weight Infant Gen Labor Lgth Anesthesia Del Locatn Provider FOB 04/14/21 Whately 41 live - full term 8#2oz Male epidur al [facility] GP Froilan Delivery Date: 04/14/21 [...] and Symptoms of Preeclampsia, Feeding No , [place] [employer] and Family Medical Leave or Disability [...] Cosigner Signature: Date (if applicable) CC: ~ [facility]06-05-2025 Evaluation note* Diagnosis Onset Date [...] Supervision of high-risk acute March 21 10:17am [facility] Work Phone: 1(583) 548-602006-05-2025 Evaluation note* Diagnosis Onset Date Resolution Status [...] of high-risk acute March 24, 2025 10:17am [facility] Work Phone: 1(736) 362-808306-05-2025 Evaluation note* Diagnosis Onset Date Resolution Status [...] Pre-existing severe obesity in mother affecting acute [facility] 2024 5:47am acute March 5:47am Rh negative state in antepar caroline period acute March 28, 2025 5:47am Supervision of high-risk acute March 28, 2025 5:47am [facility] Work Phone: 1(191) 987-770006-05-2025 Progress [facility] [address] [place] [address], [address] [place] [address] OFFICE VISIT Date of Service: 12/16/24 MR#: [id number] Acct: [id number] Name: DEMETRIUS FERNANDES Rep #: [id number] : 1990 Provider: Dr. Luther Zhong MD Age/Sex: 34/F Location: [facility] Status: Signed Intake Vital Signs 09/23/24 09:08 [...] occupational status: employed and unemployed current occupation: [employer] current occupational exposures/hazards: No pets and [...] 1-2 times per week duration: 30-45 minutes/day parul/anglican: None seatbelt use: always do you feel safe at home: Yes additional social history: - Froilan [employer] @ [facility] [employer] [employer] [facility] 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 Date Name GA/Weeks Outcome Route Bth Weight Infant Gen Labor Lgth Anesthesia Del Locatn Provider FOB 04/14/21 Whately 41 live - full term 8#2oz Male epidur al [facility] GP Froilan Delivery Date: 04/14/21 [...] Cosign Signature: Date (if applicable) CC: ~ [facility]05-07-2025 Evaluation note* Diagnosis Onset Date [...] Supervision of high-risk acute February 22 9:59am [facility] Work Phone: 1(992) 643-410005-07-2025 Evaluation note* Diagnosis Onset Date Resolution Status [...] high-risk acute March 09 8:54am [facility] Work Phone: 1(606) 116-369205-07-2025 Evaluation note* Diagnosis Onset Date Resolution Status [...] Rh negative state in antepartum period acute [place] 27th, 2 025 8:54am Supervision of high-risk [...] Supervision of high-risk acute March 15, 10:20am [facility] Work Phone: 1(552) 487-817904-11-2025 Evaluation note* Diagnosis Onset Date Resolution Status [...] of high-risk acute January 24, 2025 8:22am [facility] Work Phone: 1(645) 445-791304-11-2025 Evaluation note* Diagnosis Onset Date Resolution Status [...] of high-risk acute February 07, 2025 9:17am [facility] [employer] Work Phone: 1(683) 322-144803-13-2025 NotePap Smear Specimen AdequacyMarch 2024 11:59pmComment.Satisfactory for evaluation. No endocervical component is identified.An endocervical component is not commonly seen in the patient.[facility] INTER[facility]ACED A#[id number] Hospital CompanyComment on above: Satisfactory for evaluation. No endocervical component is identified.An endocervical component is not commonly seen in the patient.09-23-2024 NotePap Smear Specimen AdequacyMar 2024 11:59pmComment.Satisfactory for evaluation. No endocervical component is identified.An endocervical component is not commonly seen in the patient.[facility] INTER[facility]ACED A#[id number] Defiance Regional HospitalComment on above:Satisfactory for evaluation. No endocervical [...] of high-risk acute September 23, 2024 8:56am [facility] Work Phone: 1(608) 503-767203-13-2025 Evaluation note* Diagnosis Onset Date Resolution Status [...] high-risk acute November 17, 2024 8: 37am [facility] Work Phone: 1([phone]) 348-265003-13-2025 Evaluation note* Diagnosis Onset Date Resolution Status [...] high-risk acute December 16, 2024 9 :02am [facility] Work Phone: Evaluation noteNo assessment information available [facility] Work Phone: Hospital Discharge instructionsAdditional Instructions Scheduled non-stress tests in WP: Friday, Mar.16 9am Friday, 9am[facility] Work Phone: Progress note Author Fiordaliza Zhong [facility] Note Date/Time December 16, 2024 9:30a m [facility] [address] [place] [address], [address] [place] [address] OFFICE VISIT Date of Service: 12/16/24 MR#: [id number] Acct: [id number] Name: DEMETRIUS FERNANDES Rep #: [id number] : 1990 Provider: Dr. Luther Zhong MD Age/Sex: 34/F Location: [facility] Status: Signed Intake Vital Signs 09/23/24 09:08 [...] occupational status: employed and unemployed current occupation: [employer] current occupational exposures/hazards: No pets and [...] 1-2 times per week duration: 30-45 minutes/day parul/anglican: None seatbelt use: always do you feel safe at home: Yes 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 Date Name GA/Weeks Outcome Route Bth Weight Gen Labor Lgth Anesthesia Del Locatn Provider FOB 04/14/21 Whately 41 live - full term 8#2oz Male epidur al [facility] GP Froilan Delivery Date: 04/14/21 [...] Symptoms of Preeclampsia, Infant Feeding No , [place] [employer] Family Medical Leave or Disability Forms Results POC Urinalysis 2 Dip (Clinic) Office Urine Glucose Negative Last Edit by Shaorn Quintana on 12/16/24 09: 27 Office Urine [...] Cosigner Signature: Date (if applicable) CC: ~ [facility] Work Phone: Progress note Author Greg Layla [facility] Note Date/Time February 22, 2025 10 :18am [facility] [address] [place] [address], [address] [place] [address] OFFICE VISIT Date of Service: 02/22/25 MR#: [id number] Acct: [id number] Name: DEMETRIUS FERNANDES Rep #: [id number] : 1990 Provider: ZACHARY Rich Age/Sex: 34/F [place] 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 Date Name GA/Weeks Outcome Route Bth Weight Infant Gen Labor Lgth Anesthesia Del [facility] Provider FOB 04/14/21 Whately 41 live - full term 8#2oz Male epidur al [facility] GP Froilan Delivery Date: 04/14/21 [...] NIPT-very concerned about weight with this . [facility] anatomy order placed 10/22/24 -?-?-?-?-?-?-?-?-?-?-?-?- 14w [...] Cosigner Signature: Date (if applicable) CC: ~ [facility] Work Phone: Progress note Author Fiordaliza Zhong [facility] Note Date/Time March 15, 2025 11:12am [facility] Medical Records Department [address] [place] [address] OB Triage Progress Note 03/15/25 1110 MR#: [id number] Acct: [id number] Name: DEMETRIUS FERNANDES Rep #:[id number] : 1990 34 From: Fiordaliza moctezuma MD PCP: Dr. Delmar Luna MD Status :REG CLI Y DOS: Location: [place] [address] Progress Notes Date of Service: 03/15/25 Progress Note: Patient presents for triage evaluation secondary to polyhydramnios FHT: 130-135 Moderate variability reactive no decelerations category I tracing [place]: no regular Contractions Assessment and plan: polyhydramnios 35 weeks Reactive NST, reassuring maternal and status patient discharged to home to follow-up as scheudled. See problem list details for additional plan information. Charges/Coding Procedures Urinary/Genital 52xxx-59xxx: 75335-18 non-stress test Interp Assessment & Plan (1) [...] MD; Dr. Fiordaliza Zhong MD ~ Signed [facility] Work Phone: Progress note Author Fiordaliza Zhong [facility] Note Date/Time March 21, 2025 11:06am [facility] [address] [place] [address], [address] [place] [address] OFFICE VISIT Date of Service: 03/21/25 MR#: [id number] Acct: [id number] Name: DEMETRIUS FERNANDES Rep #: [id number] : 1990 Provider: Dr. Luther Zhong MD Age/Sex: 34/F Location: [facility] Status: Signed Intake Vital Signs 01/24/25 08:40 03/09/25 10:29 03/15/25 10:40 03/21/25 10:29 Height 5 ft 9 in 5 ft 9 in 5 ft 9 in 5 ft 9 in Weight: 342 lb 6 oz BMI 50.5 BP 127/72 H Intake Visit Reasons: 36 wk ob Streaming Media Specialist Required: No Is patient in pain?: No [...] ea 03/07/25 03/21/25 Rx (FreeStyle Hardeep 2 [place]) lancets #200 ea 03/07/25 03/21/25 Rx Last [...] occupational status: employed and unemployed current occupation: [employer] current occupational exposures/hazards: No pets and [...] 1-2 times per week duration: 30-45 minutes/day parul/anglican: None seatbelt use: always do you feel safe at home: Yes additional social history: - Froilan GUARDADON @ [facility] [employer] [employer] [facility] 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 Date Name GA/Weeks Outcome Route Bth Weight Infant Gen Labor Lgth Anesthesia Del [facility] Provider FOB 04/14/21 Timmy 41 live - full term 8#2oz Male epidur al [facility] GP Froilan Delivery Date: 04/14/21 [...] NIPT-very concerned about weight with this . [facility] anatomy order placed 10/22/24 -?-?-?-?-?-?-?-?-?-?-?-?- 14w [...] Cosigner Signature: Date (if applicable) CC: ~ [facility] Work Phone: Progress note Author Fiordaliza Zhong [facility] Note Date/Time March 24, 2025 10:05am [facility] Medical Records Department [address] [place] [address] OB Triage Progress Note 03/24/25 1004 MR#: [id number] Acct: [id number] Name: DEMETRIUS FERNANDES Rep #:[id number] : 1990 34 From: Fiordaliza moctezuma MD PCP: Dr. Delmar Luna MD Status :REG CLI Y DOS: Location: [place] [id number] Progress Notes Date of Service: 03/24/25 Progress Note: Patient presents for triage evaluation secondary to polyhydramnios FHT: 135 Moderate variability reactive no decelerations category I tracing [place]: no regular Contractions Assessment and plan: 36 weeks severe polyhydramnios Reactive NST, reassuring maternal and status patient discharged to home to follow-up as scheduled. See problem list details for additional plan information. Charges/Coding Procedures Urinary/Genital 52xxx-59xxx: 50033-58 non-stress test Interp 03/24/25 1005 <Electronically signed by Fiordaliza sylvester MD> Date _ Fiordaliza Zhong MD Cosigner Signature (if applicable): Date CC: Dr. Delmar Luna MD; Dr. Fiordaliza Zhong MD ~ Signed [facility] Work Phone: Progress note Author Fiordaliza Zhong [facility] Note Date/Time March 24, 2025 11:11am [facility] [address] [place] [address], [address] [place] [address] OFFICE VISIT Date of Service: 03/24/25 MR#: [id number] Acct: [id number] Name: DEMETRIUS FERNANDES Rep #: [id number] : 1990 Provider: Dr. Luther Zhong MD Age/Sex: 34/F Location: [facility] Status: Signed Intake Vital Signs 03/24/25 09:10 03/24/25 10:26 Height 5 ft 9 in 5 ft 9 in Weight: 345 lb 9 oz BMI 51.0 BP 132/76 H Intake Visit Reasons: 37wk ob before csection *per Streaming Media Specialist Required: No Is patient in pain?: No [...] scanning reader #1 ea 03/07/25 03/24/25 Rx (imeemyle Hardeep 2 [place]) lancets #200 ea 03/07/25 03/24/25 Rx Last [...] occupational status: employed and unemployed current occupation: [employer] current occupational exposures/hazards: No [...] 1-2 times per week duration: 30-45 minutes/day parul/anglican: None seatbelt use: always do you feel [...] Lgth Anesthesia Del Locatn Provider FOB 04/14/21 Whately 41 live - full term 8#2oz Male epidur al [facility] GP Froilan Delivery Date: 04/14/21 [...] NIPT-very concerned about weight with this . [facility] anatomy order placed 10/22/24 -?-?-?-?-?-?-?-?-?-?-?-?- 14w 5d 312 lb 2 oz (+3 lb 2 oz) 119/76 Negative -?-?-?-?-?-?-?-?-?-?-?-?- Negative 168 -?-?-?-?-?-?-?-?-?-?-?-?- JV- nipt was inc onclusive. plan for afp between 17-21 weeks. anatomy scan with [facility]. 11/17/24 -?-?-?-?-?-?-?-?-?-?-?-?- 18w 3d 317 lb [...] Symptoms of Preeclampsia, Infant Feeding No , [place] [employer] and Family Medical Leave or Disability [...] sylvester MD> Date _ Fiordaliza Zhong MD [facility] Signature: Date (if applicable) CC: ~ [facility] [employer] Work Phone: Reason for referral (narrative)No reason for referral information availableWCincinnati Children's [facility] Work Phone: Chief Complaint and [...] 6am Rh negative state in antepartum period [facility] 2024 8:56am Spider veins of both lower extremities [facility] 2024 8:56am Supervision of high-risk [...] 172024 8:37am Former smoker, stopped smoking in [place] [employer] t past November 17, 2024 8:37am Spider veins of both lower extremities M ay 2024 8:37am Advanced maternal age (AMA) in December 16, 2024 9:02am Pre-existing severe obesity in mother af fecting December 16, 2024 9:02am December 16, 2024 9:02a m Rh negative state in antepartum period J [facility] 2024 9:02am Supervision of high-risk December [...] Rh negative state in antepartum period J [facility] 2024 8:22am Supervision of high-risk January [...] Rh negative state in antepartum period J [facility] 2024 9:02am Supervision of high-risk December [...] Rh negative state in antepartum period J [facility] 2024 9:17am Supervision of high-risk February [...] Rh negative state in antepartum period J [facility] 2024 9:02am Supervision of high-risk December 16, 2024 9:02am Advanced maternal age (AMA) in January 12, 2025 9:40am Pre-existing severe obesity in mother af fecting January 12, 2025 9:40am January 12, 2025 9:40a m Rh negative state in antepartum period J [facility] 2024 9:40am Supervision of high-risk January 12, 2025 9:40am Advanced maternal age (AMA) in January 24, 2025 8:22am Pre-existing severe obesity in mother af fecting January 24, 2025 8:22am January 24, 2025 8:22 am Rh negative state in antepartum period J [facility] 2024 8:22am Supervision of high-risk January [...] Rh negative state in antepartum period J [facility] 2024 9:02am Supervision of high-risk December [...] Rh negative state in antepartum period J [facility] 2024 9:02am Supervision of high-risk December [...] Rh negative state in antepartum period [facility] 2024 8:22am Supervision of high-risk January 24, 2025 8:22am Abnormal glucose affecting Axel 2024 9:17am Advanced maternal age (AMA) in February 07, 2025 9:17am Pre-existing severe obesity in mother af fecting February 07, 2025 9:17am February 07, 2025 9:17 am Rh negative state in antepartum period J [facility] 2024 9:17am Supervision of high-risk February [...] Rh negative state in antepartum period A [facility] 2024 8:54am Supervision of high-risk [...] Rh negative state in antepartum period A [facility] 2024 10:00am Supervision of high-risk Augus t 2024 10:00am Breech presentation March 15, 2025 10:20am Macrosomia affecting management of mothe r, antepartum March 15, 2025 10:20am Polyhydramnios affecting Septe [facility] 2024 10:20am March 15, 2025 10:20am Supervision of high-risk Septe [facility] 2024 10:20am Chief Complaint Admit Date 22wk [...] Rh negative state in antepartum period J [facility] 2024 9:02am Supervision of high-risk December [...] Rh negative state in antepartum period J [facility] 2024 8:22am Supervision of high-risk January [...] Rh negative state in antepartum period A [facility] 2024 8:54am Supervision of high-risk [...] Rh negative state in antepartum period A [facility] 2024 10:00am Supervision of high-risk Augus 2024 10:00am Breech presentation March 15, 2025 10:20am Macrosomia affecting management of mothe r, antepartum March 15, 2025 10:20am Polyhydramnios affecting Septe [facility] 2024 10:20am March 15, 2025 10:20am Supervision of high-risk Septe [facility] 2024 10:20am Abnormal glucose affecting Sep tem2024 [...] eptember 2024 10:17am Supervision of high-risk Septe [facility] 2024 10:17am Chief Complaint Admit Date 22wk [...] 2025 10:04am 37wk ob before csection *per [facility] r 2024 10:17am Reason for Visit Admit Date Advanced maternal age (AMA) in December 16, 2024 9:02am Pre-existing severe obesity in mother affecting December 16, 2024 9:02am December 16, 2024 9:02a m Rh negative state in antepartum period J [facility] 2024 9:02am Supervision of high-risk December 16, 2024 9:02am Advanced maternal age (AMA) in January 12, 2025 9:40am Pre-existing severe obesity in mother affecting January 12, 2025 9:40am January 12, 2025 9:40a m Rh negative state in antepartum period J [facility] 2024 9:40am Supervision of high-risk January [...] Rh negative state in antepartum period A [facility] 2024 9:59am Supervision of high-risk [...] Rh negative state in antepartum period A [facility] 2024 8:54am Supervision of high-risk [...] Rh negative state in antepartum period A [facility] 2024 10:00am Supervision of high-risk Augus t 2024 10:00am Breech presentation March 15, 2025 10:20am Macrosomia affecting management of mothe r, antepartum March 15, 2025 10:20am Polyhydramnios affecting Septe mb2024 10:20am March 15, 2025 10:20am Supervision of high-risk [facility] 2024 10:20am Abnormal glucose affecting [facility]2024 10:17am Advanced maternal age (AMA) in March 21, 2025 10:17am Breech presentation March 21, 2025 10:17am Macrosomia affecting management of mothe r, antepartum March 21, 2025 10:17am Polyhydramnios affecting [facility] 2024 10:17am Pre-existing severe obesity in mother affecting March 21, 2025 10:17am March 21, 2025 10:17am Rh negative state in antepartum period S [facility]2024 10:17am Supervision of high-risk [facility] 2024 10:17am Abnormal glucose affecting [facility] 2024 10:17am Advanced maternal age (AMA) in March 24, 2025 10:17am Breech presentation March 24, 2025 10:17am Macrosomia affecting management of mothe r, antepartum March 24, 2025 10:17am Polyhydramnios affecting [facility] 2024 10:17am Pre-existing severe obesity in mother affecting March 24, 2025 10:17am March 24, 2025 10:17am Rh negative state in antepartum period S [facility] 2024 10:17am Supervision of high-risk [facility] 2024 10:17am Chief Complaint Admit Date 22wk [...] m Rh negative state in antepartum period [facility] 2024 9:02am Supervision of high-risk December 16, 2024 9:02am Advanced maternal age (AMA) in January 12, 2025 9:40am Pre-existing severe obesity in mother affecting January 12, 2025 9:40am January 12, 2025 9:40a m Rh negative state in antepartum period [facility] 2024 9:40am Supervision of high-risk January 12, 2025 9:40am Advanced maternal age (AMA) in January 24, 2025 8:22am Pre-existing severe obesity in mother affecting January 24, 2025 8:22am January 24, 2025 8:22 am Rh negative state in antepartum period [facility] 2024 8:22am Supervision of high-risk January 24, 2025 8:22am Abnormal glucose affecting Jan 9:17am Advanced maternal age (AMA) in February 07, 2025 9:17am Pre-existing severe obesity in mother affecting February 07, 2025 9:17am February 07, 2025 9:17 am Rh negative state in antepartum period [facility] 2024 9:17am Supervision of high-risk February 07, 2025 9:17am Abnormal glucose affecting Aug us2024 9:59am Advanced maternal age (AMA) in February 22, 2025 9:59am Pre-existing severe obesity in mother affecting February 22, 2025 9:59am February 22, 2025 9: 59am Rh negative state in antepartum period A [facility] 2024 9:59am Supervision of high-risk [...] Rh negative state in antepartum period A [facility] 2024 8:54am Supervision of high-risk [...] Rh negative state in antepartum period A [facility] 2024 10:00am Supervision of high-risk [...] 21, 2025 10:17am Polyhydramnios affecting [facility] 2024 10:17am Pre-existing severe obesity in mother affecting March 21, 2025 10:17am March 21, 2025 10:17am Rh negative state in antepartum period S [facility] 2024 10:17am Supervision of high-risk [facility] 2024 10:17am Abnormal glucose affecting [facility] 2024 10:17am Advanced maternal age (AMA) in March 24, 2025 10:17am Breech presentation March 24, 2025 10:17am Macrosomia affecting management of mothe r, antepartum March 24, 2025 10:17am Polyhydramnios affecting [facility] 2024 10:17am Pre-existing severe obesity in mother affecting March 24, 2025 10:17am March 24, 2025 10:17am Rh negative state in antepartum period S [facility] 2024 10:17am Supervision of high-risk [facility] 2024 10:17am Abnormal glucose affecting Sep [facility] 2024 5:47am Advanced maternal age (AMA) in March 28, 2025 5:47am Breech presentation March 28, 2025 5:47am delivery delivered March 282024 5:47am Macrosomia affecting management of mothe r, antepartum March 28, 2025 5:47am Polyhydramnios affecting [facility] 2024 5:47am Pre-existing severe obesity in mother affecting March 28, 2025 5:47am March 28, 2025 5:47am Rh negative state in antepartum period S [facility] 2024 5:47am Supervision of high-risk [facility] 2024 5:47am Family History No Family History [...] Will No April 13 8:08pm Power of Package Sealer No April 13 021 8:08pm Advance Directive Response Recorded Date/ Time Do you have a Healthcare Power of Package Sealer? No March 28, 2025 6:18am Summary Purpose [...] Inactive Member Role Status Dates Erick Rodriguez SHAREMILKER, SHAREMILKER-C Attending Provider Active Start: November 17, 2024 End: November 17, 2024 Team Status: Inactive Member Role Status Dates Erick Rodriguez SHAREMILKER, SHAREMILKER-C Attending Provider Active Start: November 17, 2024 End: November 17, 2024 Erick Rodriguez SHAREMILKER, SHAREMILKER-C Referring Provider Active Start: November 17, 2024 [...] Inactive Member Role/Relationship Status Dates Erick Rodriguez SHAREMILKER, SHAREMILKER-C Attending Provider Active Start: November 17, 2024 End: November 17, 2024 Team Status: Inactive Member Role/Relationship Status Dates Erick Rodriguez SHAREMILKER, SHAREMILKER-C Attending Provider Active Start: November 17, 2024 End: November 17, 2024 Erick Rodriguez SHAREMILKER, SHAREMILKER-C Referring Provider Active Start: November 17, 2024 End: November 17, 2024 Team Status: Inactive Member Role/Relationship Status Dates Dr. Fiordaliza Zhong MD Attending Provider Active Start: December 16, 2024 End: December 16, 2024 Team Status: Inactive Member Role/Relationship Status Dates Erick Rodriguez SHAREMILKER, SHAREMILKER-C Attending Provider Active Start: January 12, 2025 [...] Inactive Member Role/Relationship Status Dates Erick Rodriguez SHAREMILKER, SHAREMILKER-C Attending Provider Active Start: November 17, 2024 End: November 17, 2024 Team Status: Inactive Member Role/Relationship Status Dates Erick Rodriguez SHAREMILKER, SHAREMILKER-C Attending Provider Active Start: November 17, 2024 End: November 17, 2024 Erick Brooks SHAREMILKER, SHAREMILKER-C Referring Provider Active Start: November 17, 2024 End: November 17, 2024 Team Status: Inactive Member Role/Relationship Status Dates Dr. Fiordaliza Zhong MD Attending Provider Active Start: December 16, 2024 End: December 16, 2024 Team Status: Inactive Member Role/Relationship Status Dates Erick Penryn SHAREMILKER, SHAREMILKER-C Attending Provider Active Start: January 12, 2025 End: January 12, 2025 Team Status: Inactive Member Role/Relationship Status Dates Erick Brooks SHAREMILKER, SHAREMILKER-C Attending Provider Active Start: January 24, 2025 End: January 24, 2025 Team Status: Active Member Role/Relationship Status Dates Erick Rodriguez SHAREMILKER, SHAREMILKER-C Attending Provider Active Start: January 24, 2025 [...] Inactive Member Role/Relationship Status Dates Erick Rodriguez SHAREMILKER, SHAREMILKER-C Attending Provider Active Start: November 17, 2024 End: November 17, 2024 Team Status: Inactive Member Role/Relationship Status Dates Erick Penryn SHAREMILKER, SHAREMILKER-C Attending Provider Active Start: November 17, 2024 End: November 17, 2024 Erick Brooks SHAREMILKER, SHAREMILKER-C Referring Provider Active Start: November 17, 2024 End: November 17, 2024 Team Status: Inactive Member Role/Relationship Status Dates Dr. Fiordaliza Zhong MD Attending Provider Active Start: December 16, 2024 End: December 16, 2024 Team Status: Inactive Member Role/Relationship Status Dates Erick Rodriguez SHAREMILKER, SHAREMILKER-C Attending Provider Active Start: January 12, 2025 End: January 12, 2025 Team Status: Inactive Member Role/Relationship Status Dates Erick Brooks SHAREMILKER, SHAREMILKER-C Attending Provider Active Start: January 24, 2025 End: January 24, 2025 Team Status: Inactive Member Role/Relationship Status Dates Erick Arguetas SHAREMILKER, SHAREMILKER-C Attending Provider Active Start: January 24, 2025 End: January 24, 2025 Team Status: Active Member Role/Relationship Status Dates Erick Rodriguez SHAREMILKER, SHAREMILKER-C Attending Provider Active Start: January 25, 2025 Erick Rodriguez SHAREMILKER, SHAREMILKER-C Referring Provider Active Start: January 25, 2025 Dr. Delmar Luna MD Primary Care Provider Acti ve Start: January 25, 2025 Team Status: Inactive Member Role/Relationship Status Dates Erick Arguetas SHAREMILKER, SHAREMILKER-C Attending Provider Active Start: January 25, 2025 End: January 25, 2025 Erick Arguetas SHAREMILKER, SHAREMILKER-C Referring Provider Active Start: January 25, 2025 End: January 25, 2025 Dr. Delmar Luna MD Primary Care Provider Acti ve Start: January 25, 2025 End: January 25, 2025 Team Status: Inactive Member Role/Relationship Status Dates Erick Rodriguez SHAREMILKER, SHAREMILKER-C Attending Provider Active Start: January 25, 2025 End: January 25, 2025 Erick Rodriguez SHAREMILKER, SHAREMILKER-C Referring Provider Active Start: January 25, 2025 [...] Inactive Member Role/Relationship Status Dates Erick Brooks SHAREMILKER, SHAREMILKER-C Attending Provider Active Start: November 17, 2024 End: November 17, 2024 Team Status: Inactive Member Role/Relationship Status Dates Erick Brooks SHAREMILKER, SHAREMILKER-C Attending Provider Active Start: November 17, 2024 End: November 17, 2024 Erick Brooks SHAREMILKER, SHAREMILKER-C Referring Provider Active Start: November 17, 2024 End: November 17, 2024 Team Status: Inactive Member Role/Relationship Status Dates Dr. Fiordaliza Zhong MD Attending Provider Active Start: December 16, 2024 End: December 16, 2024 Team Status: Inactive Member Role/Relationship Status Dates Erick Penryn SHAREMILKER, SHAREMILKER-C Attending Provider Active Start: January 12, 2025 End: January 12, 2025 Team Status: Inactive Member Role/Relationship Status Dates Erick Brooks SHAREMILKER, SHAREMILKER-C Attending Provider Active Start: January 24, 2025 End: January 24, 2025 Team Status: Inactive Member Role/Relationship Status Dates Erick Penryn SHAREMILKER, SHAREMILKER-C Attending Provider Active Start: January 25, 2025 End: January 25, 2025 Erick Brooks SHAREMILKER, SHAREMILKER-C Referring Provider Active Start: January 25, 2025 [...] 15, 2025 End: March 15, 2025 Dr. Fiordailza Zhong MD Attending Provider Active Start: March [...] Inactive Member Role/Relationship Status Dates Erick Rodriguez SHAREMILKER, SHAREMILKER-C Attending Provider Active Start: January 12, 2025 End: January 12, 2025 Team Status: Inactive Member Role/Relationship Status Dates Erick Rodriguez SHAREMILKER, SHAREMILKER-C Attending Provider Active Start: January 24, 2025 End: January 24, 2025 Team Status: Inactive Member Role/Relationship Status Dates Erick Arguetas SHAREMILKER, SHAREMILKER-C Attending Provider Active Start: January 24, 2025 End: January 24, 2025 Team Status: Inactive Member Role/Relationship Status Dates Erick Arguetas SHAREMILKER, SHAREMILKER-C Attending Provider Active Start: January 25, 2025 End: January 25, 2025 Erick Rodriguez SHAREMILKER, SHAREMILKER-C Referring Provider Active Start: January 25, 2025 [...] Inactive Member Role/Relationship Status Dates Erick Rodriguez SHAREMILKER, SHAREMILKER-C Attending physician Active Start: January 12, 2025 End: January 12, 2025 Team Status: Inactive Member Role/Relationship Status Dates Erick Penryn SHAREMILKER, SHAREMILKER-C Attending physician Active Start: January 24, 2025 End: January 24, 2025 Team Status: Inactive Member Role/Relationship Status Dates Erick Arguetas SHAREMILKER, SHAREMILKER-C Attending physician Active Start: January 24, 2025 End: January 24, 2025 Team Status: Inactive Member Role/Relationship Status Dates Erick Arguetas SHAREMILKER, SHAREMILKER-C Attending physician Active Start: January 25, 2025 End: January 25, 2025 Erick Rodriguez SHAREMILKER, SHAREMILKER-C Referring Provider Active Start: January 25, 2025 [...] Primary care physician Act macaroi Start: March 28, 2025 Dr. Fiordaliza Zhong [...] section and content) DATE CREATED AUTHOR 03/22/2025 [facility] DATE CREATED AUTHOR AUTHOR'S ORGANIZ ATION 04/06/2025 [facility] FOR RECORDS PERTAINING TO PATIENTS WHO [...] BE BASED ON THE PRIMARY CLINICAL RECORDS. [facility] [employer] [facility]. provides no warranty or guarantee of the accuracy or completeness of information in this document.
--- NOTE | 2025-04-07 22:00 | RAD_ITS ---
PROCEDURE: CHEST 1 VIEW (PORTABLE) 04/07/2025 REASON FOR EXAM: BRADYCARDIA, LEG SWELLING TECHNIQUE: Frontal view of the chest. COMPARISON: None. FINDINGS: Lungs/Pleura: No focal airspace consolidation, pneumothorax, or sizable pleural effusion. Heart/Mediastinum: Mildly enlarged. No vascular congestion. Bones/Soft tissues: No significant abnormality. RAD/Chest 1 View (Portable) IMPRESSION: Mild cardiomegaly. No airspace disease. Reading Location: [id number]
[2025-04-07 22:24] LABS: Pro- Brain NATRIURETIC PEPTIDE 264 pg/mL (<=450)
[2025-04-08] MEDS: Piperacil/Tazobactam 3.375 GM in 0.9% Normal Saline (50mL MB+) 50 ML IV ×3 (05:23→21:55)
--- NOTE | 2025-04-08 05:55 | ECHOD_ITS ---
Reason For Study Reason For Study: BRADYCARDIA Procedure This was a 2D Doppler, Color Flow transthoracic echocardiogram. Myocardial strain analysis was performed in this exam to aid in the assessment of cardiac function. Exam performed in department. Left Ventricle Normal left ventricle. The global longitudinal strain = -22.4 % (normal). Right Ventricle Normal right ventricle. Normal systolic function. Atria Normal left atrium. Normal right atrium. Mitral Valve The mitral valve is structurally normal. No prolapse or stenosis seen. Tricuspid Valve Normal tricuspid valve. Aortic Valve Trisinus/trileaflet aortic valve. Pulmonic Valve The pulmonic valve is not well visualized. Great Vessels The aortic root is not well visualized. Pericardium/Pleural No pericardial effusion. MMode/2D Measurements & Calculations LVIDd: 5.8 cm IVSd: 0.99 cm Ao root diam: 3.2 cm LVIDs: 3.6 cm LVPWd: 0.99 cm RVDd: 3.5 cm FS: 39.1 % LAV(MOD-bp): 79.7 ml LVAd ap4: 48.2 cm2 LVAd ap2: 43.7 cm2 LAV(MOD-bp) Indexed: 30.9 ml/m2 LVLd ap4: 9.8 cm LVLd ap2: 9.5 cm LAV(MOD-sp2): 74.9 ml EDV(MOD-sp4): 201.6 ml EDV(MOD-sp2): 163.0 ml LAV(MOD-sp4): 77.2 ml EDV(sp4-el): 202.1 ml EDV(sp2-el): 169.7 ml LVAs ap4: 22.9 cm2 LVAs ap2: 20.5 cm2 LVLs ap4: 7.3 cm LVLs ap2: 7.4 cm ESV(MOD-sp4): 62.9 ml ESV(MOD-sp2): 51.0 ml ESV(sp4-el): 60.7 ml ESV(sp2-el): 48.3 ml EF(MOD-sp4): 68.8 % EF(MOD-sp2): 68.7 % EF(sp4-el): 69.9 % SV(MOD-sp4): 138.7 ml SV(MOD-sp2): 112.0 ml SV(sp4-el): 141.3 ml SI(MOD-sp4): 53.7 ml/m2 SI(MOD-sp2): 43.4 ml/m2 LA A4 area: 23.9 cm2 LA dimension(2D): 4.4 cm RA A4 area: 20.6 cm2 TAPSE: 3.4 cm Time Measurements MV dec time: 0.19 sec Doppler Measurements & Calculations MV E max haresh: 146.2 cm/sec Lat Peak E' Haresh: 17.0 cm/sec Med Peak E' Haresh: 12.6 cm/sec MV A max haresh: 63.3 cm/sec E/E' lat: 8.6 E/E' med: 11.6 MV E/A: 2.3 MV V2 max: 184.6 cm/sec MV P1/2t max haresh: 179.5 cm/sec Ao V2 max: 204.1 cm/sec MV max P.6 mmHg MV P1/2t: 83.8 msec Ao max P.7 mmHg MV V2 mean: 61.7 cm/sec Ao V2 mean: 139.2 cm/sec MV mean P.3 mmHg MV dec slope: 627.1 cm/sec2 Ao mean P.7 mmHg MV V2 VTI: 60.0 cm MVA(P1/2t): 2.6 cm2 Ao V2 VTI: 52.3 cm AV (velocity ratio): 0.71 LV V1 max: 143.4 cm/sec PA V2 max: 120.8 cm/sec PI end-d haresh: 124.0 cm/sec LV V1 max P.2 mmHg LV V1 mean P.3 mmHg LV V1 mean: 98.0 cm/sec LV V1 VTI: 37.0 cm TR max haresh: 257.8 cm/sec TR max P.8 mmHg ECHO/Echo Complete Interpretation Summary Normal LV systolic function Ejection fraction 60-65% No prior echocardiogram to compare Ordering Physician: Ebonie Perez Referring Physician: Reji Luna; yAe Kim Performed By: Qing Vaughan, AGUSTO, RVT
--- NOTE | 2025-04-08 08:25 | US_ITS ---
PROCEDURE: ABDOMEN LIMITED 04/08/2025 REASON FOR EXAM: ABNORMAL CT LIVER TECHNIQUE: Procedure Code: USABDL Modality: US Procedure: ABDOMEN LIMITED COMPARISON: 04/07/2022 CT. FINDINGS: The liver measures 20 cm in length. Echogenicity is within normal limits. Portal venous flow is hepatopetal. Hepatic color flow is present. The intrahepatic bile ducts are within normal limits. The common bile duct measures 4.4 mm. The gallbladder measures 7.7 cm in length. The gallbladder wall measures 3.0 mm. The gallbladder is within normal limits in size. A small amount of pericholecystic fluid is present. Gallbladder sludge is noted. No gallstones are identified. No gallbladder polyps are visualized. Sonographic Velazquez's sign is negative. The pancreas is within normal limits in echogenicity and contour. No pancreatic duct dilatation is seen. The right kidney measures 13.0 x 6.2 x 4.6 cm. Cortical thickness measures 1.1 cm and appears within normal limits. Echogenicity is within normal limits. No calculi are identified. No hydronephrosis is seen. US/Abdomen Limited IMPRESSION: Hepatomegaly with liver length measuring 20 cm, with normal echogenicity and pr eserved hepatopetal portal venous flow. Gallbladder sludge with borderline wall thickening and trace pericholecystic fl uid. No gallstones. Negative sonographic Velazquez's sign. Common bile duct measures 4.4 mm, within normal limits. Pancreas unremarkable. Right kidney within normal limits in size and cortical thickness. No stones or hydronephrosis. Reading Location: [id number]
[2025-04-08 08:59] LABS: Hematocrit 34.6 % (37-47); Hemoglobin 11.3 g/dL (12.0-15.0); Immature Granulocytes Count 0.050 X10^3/uL (0.0-0.0); Mean Corp Hgb Conc 32.7 g/dL (32-36); Mean Corpuscular Volume 83.8 fL (81-99); Mean Platelet Vol. 9.9 fl (6.2-12.0); NRBC Flagged by Analyzer 0 % (0-5); Platelet Count 342 K/mm3 (150-450); RBC Distribution Width CV 14.5 % (11.6-14.6); RBC Distribution Width SD 44.0 fl (35.1-43.9); Red Blood Count 4.13 M/mm3 (4.2-5.4); White Blood Count 10.5 K/mm3 (4.4-11.0)
--- NOTE | 2025-04-08 09:27 | PN.OBGYN_ITS ---
Subjective Subjective Patient is laying in bed comfortably without complaints. She states that she slept on an off during the night. Lochia is minimal and pain is 0 currently. It appears that the highest her heart rate reached with ambulation was 51. Echo not done yet. She also states that no one changed her dressing over night. Objective Data Objective Data Vital Signs: Vital Signs Temp Pulse Resp BP Pulse Ox O2 Del Method 97.4 F L 51 L 16 154/77 H 99 Room Air 04/07/25 21:33 04/07/25 23:00 04/07/25 21:33 04/07/25 21:33 04/07/25 21:33 04/07/25 21:33 Oxygen Delivery Method Room Air Weight: 338 lb Body Mass Index (BMI) 49.8 Intake & Output: Intake and Output for Last 24 Hours 04/06/25 04/07/25 04/08/25 23:59 23:59 23:59 Intake Total 50 / 50 Balance 50 / 50 Lab / Micro Data 04/08/25 08:45 04/07/25 20:00 Labs: Laboratory Results - last 24 hr 04/07/25 17:10: WBC Cancelled, Corrected WBC Cancelled, RBC Cancelled, Hgb Cancelled, Hct Cancelled, MCV Cancelled, MCH Cancelled, MCHC Cancelled, RDW Std Deviation Cancelled, RDW Coeff of Anoop Cancelled, Plt Count Cancelled, MPV Cancelled, Diff Path Review Cancelled, Creatinine 0.72, Estim Creat Clear Calc 174.16, Est GFR (MDRD) Non-Af 111, Uric Acid 5.6, AST 21, ALT 32, Lactate Dehydrogenase 174 04/07/25 18:00: WBC 10.2, RBC 3.81 L, Hgb 10.4 L, Hct 31.8 L, MCV 83.5, MCH 27.3, MCHC 32.7, RDW Std Deviation 44.5 H, RDW Coeff of Anoop 14.6, Plt Count 333, MPV 10.3, Immature Gran % (Auto) 0.400, Neut % (Auto) 62.8, Lymph % (Auto) 25.7, [place] % (Auto) 6.9, Eos % (Auto) 3.6, Baso % (Auto) 0.6, Absolute Neuts (auto) 6.4, Absolute Lymphs (auto) 2.61, Nucleated RBC % 0 04/07/25 20:00: Sodium 140, Potassium 4.2, Chloride 107, Carbon Dioxide 23.2, Anion Gap 10, BUN 20 H, Creatinine 0.71, Estim Creat Clear Calc 176.61, Est GFR (MDRD) Non-Af 113, BUN/Creatinine Ratio 28.3 H, Glucose 81, Calcium 8.4, Magnesium 2.0, NT pro BNP II 264, TSH 1.510, Free T4 0.90 04/08/25 08:45: WBC 10.5, RBC 4.13 L, Hgb 11.3 L, Hct 34.6 L, MCV 83.8, MCH 27.4, MCHC 32.7, RDW Std Deviation 44.0 H, RDW Coeff of Anoop 14.5, Plt Count 342, MPV 9.9, Immature Gran % (Auto) 0.500, Neut % (Auto) 67.3, Lymph % (Auto) 20.3, [place] % (Auto) 7.3, Eos % (Auto) 4.1, Baso % (Auto) 0.5, Absolute Neuts (auto) 7.1, Absolute Lymphs (auto) 2.14, Nucleated RBC % 0 Radiography Diagnostic Testing: Radiology Impression Abdomen/Pelvis CT 04/07/25 16:37 IMPRESSION: There is extensive soft tissue thickening and induration along bilateral lateral abdominal wall additionally there is marked edematous changes with soft tissue thickening around periumbilical region spanning over 6 cm with inflammatory changes extending into anterior abdominal wall musculature with small foci of air. Findings are concerning for underlying infectious/inflammatory process with phlegmonous changes and developing abscess in this location. Hepatosplenomegaly with mild intrahepatic dilatation. Additionally there is small amount of pericholecystic fluid adjacent to sludge filled gallbladder. Ultrasound abdomen is recommended for better characterization. Enlarged globular and edematous uterus findings likely represent post course. Continued attention on follow-up imaging is recommended. Reading Location: [facility] Chest X-Ray 04/07/25 22:00 IMPRESSION: Mild cardiomegaly. No airspace disease. Reading Location: [id number] ROS Constitutional Constitutional: Reports systems reviewed and no addt'l complaints, except as documented Cardiovascular Cardiovascular: Denies chest pain, dizziness, dyspnea or irregular heart rhythm Respiratory/Chest Respiratory/Chest: Denies cough, pain on inspiration or shortness of breath at rest Gastrointestinal Gastrointestinal: Denies abdominal pain, nausea or vomiting Genitourinary Genitourinary: Denies burning urination Musculoskeletal Musculoskeletal: Denies muscle cramps, muscle spasms or muscle weakness Neurologic Neurologic: Denies confusion, dizziness, headache(s) or lack of coordination Psychiatric Psychiatric: Denies anxiety, behavioral changes or depression Physical Exam HEENT normocephalic Resp normal respiratory effort and normal air movement GI soft to palpation, non-tender and non-distended GI Narrative: incision is moist and oozing. The edges are erythematous and the superior aspect is firm. This is unchanged from yesterday Rectal Exam: other Other Details: Incision is clean, dry, and intact no CVA tenderness Extremity normal to inspection General Extremity: edema bilateral (trace ) lower extremity Details: moderate Assessment & Plan (1) Sinus bradycardia: (2) Lower extremity edema: (3) Postoperative wound infection: PLAN: Plan continue zosyn for a total of 48 hours then discuss dc to home on augmentin. we discussed that the culture that was collected was not a deep wound culture as the incision is not open. There is not an abscess to drain either. This means the culture will likely be inadequate plan per medicine to do echo today. unsure of plan this am. will need to touch base with them dressing changed and silver mepilex placed. Charges/Coding Visit Charges Inpatient E&M: [address] [facility] Hosp L3
[2025-04-08 09:28] LABS: Anion Gap 10 (5-15); BUN 17 mg/dL (4-19); BUN/Creat Ratio 22.9 RATIO (10-20); Calcium,Total 8.7 mg/dL (7.6-11.0); Carbon Dioxide 24.0 mmol/L (21.0-32.0); Chloride 107 mmol/L (98-108); Estimated Creatinine Clearance 167.01 ml/min (50-250); Glucose 91 mg/dL (70-99); Potassium 4.2 mmol/L (3.3-5.1)
[2025-04-08 09:31] LABS: Barbiturate Urine NEGATIVE (< 200 ng/mL); Benzodiazepine Urine NEGATIVE (< 200 ng/mL); PCP Urine NEGATIVE (< 25 ng/mL); THC Urine NEGATIVE (< 50 ng/mL)
[2025-04-08 10:33] VITALS: BP 143/69; PULSE 43; RESP 18; TEMP 36.8; O2SAT 97
--- NOTE | 2025-04-08 13:07 | PCM.PN.HOSP ---
Subjective Subjective Feels well. Denies complaints. Objective Data Objective Data Vital Signs: Vital Signs Temp Pulse Resp BP Pulse Ox O2 Del Method 36.8 C 43 L 18 143/69 H 97 Room Air 04/08/25 10:33 04/08/25 10:33 04/08/25 10:33 04/08/25 10:33 04/08/25 10:33 04/08/25 10:33 Oxygen Delivery Method Room Air Weight: 153.314 kg Body Mass Index (BMI) 49.8 Intake & Output: Intake and Output for Last 24 Hours 04/06/25 04/07/25 04/08/25 23:59 23:59 23:59 Intake Total 100 / 100 Balance 100 / 100 Lab / Micro Data 04/08/25 08:45 04/08/25 08:45 Labs: Laboratory Results - last 24 hr 04/07/25 08:44: Urine Opiates Screen NEGATIVE, U Buprenorphine Qual NEGATIVE, Ur Oxycodone Screen NEGATIVE, Urine Methadone Screen NEGATIVE, Urine Fentanyl Screen NEGATIVE, Ur Barbiturates Screen NEGATIVE, Ur Phencyclidine Scrn NEGATIVE, Ur Amphetamines Screen NEGATIVE, U Benzodiazepines Scrn NEGATIVE, Urine Cocaine Screen NEGATIVE, U Cannabinoids Screen NEGATIVE 04/07/25 17:10: WBC Cancelled, Corrected WBC Cancelled, RBC Cancelled, Hgb Cancelled, Hct Cancelled, MCV Cancelled, MCH Cancelled, MCHC Cancelled, RDW Std Deviation Cancelled, RDW Coeff of Anoop Cancelled, Plt Count Cancelled, MPV Cancelled, Diff Path Review Cancelled, Creatinine 0.72, Estim Creat Clear Calc 174.16, Est GFR (MDRD) Non-Af 111, Uric Acid 5.6, AST 21, ALT 32, Lactate Dehydrogenase 174 04/07/25 18:00: WBC 10.2, RBC 3.81 L, Hgb 10.4 L, Hct 31.8 L, MCV 83.5, MCH 27.3, MCHC 32.7, RDW Std Deviation 44.5 H, RDW Coeff of Anoop 14.6, Plt Count 333, MPV 10.3, Immature Gran % (Auto) 0.400, Neut % (Auto) 62.8, Lymph % (Auto) 25.7, [place] % (Auto) 6.9, Eos % (Auto) 3.6, Baso % (Auto) 0.6, Absolute Neuts (auto) 6.4, Absolute Lymphs (auto) 2.61, Nucleated RBC % 0 04/07/25 20:00: Sodium 140, Potassium 4.2, Chloride 107, Carbon Dioxide 23.2, Anion Gap 10, BUN 20 H, Creatinine 0.71, Estim Creat Clear Calc 176.61, Est GFR (MDRD) Non-Af 113, BUN/Creatinine Ratio 28.3 H, Glucose 81, Calcium 8.4, Magnesium 2.0, NT pro BNP II 264, TSH 1.510, Free T4 0.90 04/08/25 08:45: WBC 10.5, RBC 4.13 L, Hgb 11.3 L, Hct 34.6 L, MCV 83.8, MCH 27.4, MCHC 32.7, RDW Std Deviation 44.0 H, RDW Coeff of Anoop 14.5, Plt Count 342, MPV 9.9, Immature Gran % (Auto) 0.500, Neut % (Auto) 67.3, Lymph % (Auto) 20.3, [place] % (Auto) 7.3, Eos % (Auto) 4.1, Baso % (Auto) 0.5, Absolute Neuts (auto) 7.1, Absolute Lymphs (auto) 2.14, Nucleated RBC % 0, Sodium 140, Potassium 4.2, Chloride 107, Carbon Dioxide 24.0, Anion Gap 10, BUN 17, Creatinine 0.75, Estim Creat Clear Calc 167.01, Est GFR (MDRD) Non-Af 106, BUN/Creatinine Ratio 22.9 H, Glucose 91, Calcium 8.7 Radiography Diagnostic Testing: Radiology Impression Abdomen/Pelvis CT 04/07/25 16:37 IMPRESSION: There is extensive soft tissue thickening and induration along bilateral lateral abdominal wall additionally there is marked edematous changes with soft tissue thickening around periumbilical region spanning over 6 cm with inflammatory changes extending into anterior abdominal wall musculature with small foci of air. Findings are concerning for underlying infectious/inflammatory process with phlegmonous changes and developing abscess in this location. Hepatosplenomegaly with mild intrahepatic dilatation. Additionally there is small amount of pericholecystic fluid adjacent to sludge filled gallbladder. Ultrasound abdomen is recommended for better characterization. Enlarged globular and edematous uterus findings likely represent post course. Continued attention on follow-up imaging is recommended. Reading Location: [id number] Chest X-Ray 04/07/25 22:00 IMPRESSION: Mild cardiomegaly. No airspace disease. Reading Location: [id number] Echocardiogram 04/08/25 05:55 Interpretation Summary Normal LV systolic function Ejection fraction 60-65% No prior echocardiogram to compare Ordering Physician: Ebonie Perez Referring Physician: Reji Luna; Aye Kim Performed By: Qing Vaughan, AGUSTO, RVT Physical Exam Const alert and no apparent distress Constitutional Narrative: Patient seen ambulating in the room without any difficulty. Appears in no distress. Before I walked in the room, her noted her heart rate was in the 50s to 60s. HEENT head/scalp atraumatic and moist oral mucous membranes Resp normal respiratory effort, no retractions, no use of accessory muscles and clear to auscultation bilaterally Cardio regular rate, regular rhythm, S1 normal heart sound and S2 normal heart sound GI normal to inspection, nondistended, normoactive bowel sounds, soft to palpation and non-tender Extremity normal to inspection Neuro Sensorium / Orientation: awake and alert Assessment & Plan Assessment/Plan (1) Sinus bradycardia: PLAN: Asymptomatic. Patient with a low resting heart rate at baseline. Asymptomatic. Echocardiogram showed EF of 60 to 65%. No additional workup at this time. PLAN: Plan Hepatomegaly. Mild intra [place] dilation. Normal LFTs. Ultrasound ordered. If that is unremarkable, would not advise any additional workup. Status post section. Management per [employer]. Currently on pip-tazo. Charges/Coding Visit Charges Inpatient E&M: 21915 Subs Hosp L2
[2025-04-08] MEDS: Furosemide 20 MG/2 ML VIAL IV (13:33)
[2025-04-08 16:30] VITALS: BP 110/63; PULSE 47; RESP 18; TEMP 36.9; O2SAT 96
[2025-04-08 21:50] VITALS: BP 138/77; PULSE 46; RESP 16; TEMP 36.8; O2SAT 97
[2025-04-08] MEDS: 0.9% Saline Lock 10 ML Syringe IV (21:55)
[2025-04-08 22:12] VITALS: BMI 49.8
[2025-04-09 03:26] VITALS: BP 132/81; PULSE 53; RESP 17; TEMP 36.6; O2SAT 99
[2025-04-09 05:40] VITALS: BMI 49.6
[2025-04-09] MEDS: Piperacil/Tazobactam 3.375 GM in 0.9% Normal Saline (50mL MB+) 50 ML IV (06:25)
[2025-04-09 09:35] VITALS: BP 134/83; PULSE 50; RESP 16; TEMP 36.6; O2SAT 95
--- NOTE | 2025-04-09 11:13 | PCM.PN.OB ---
Subjective Subjective Patient without complaints. Pain seems to be less in abdomen than when she was admitted. She indicates that she has a heart rate in the 50s and 60s even before . Absolutely no symptoms from her heart rate in the 40-50s since admission. Objective Data Objective Data CT scan with postsurgical changes from with possible early infection. Cardiac echo without abnormalities noted and ejection fraction in the 60s. Gallbladder ultrasound reading pending. Vital Signs: Vital Signs Temp Pulse Resp BP Pulse Ox O2 Del Method 97.9 F 50 L 16 134/83 H 95 Room Air 04/09/25 09:35 04/09/25 09:35 04/09/25 09:35 04/09/25 09:35 04/09/25 09:35 04/09/25 09:35 Oxygen Delivery Method Room Air Weight: 336 lb 6.806 oz Body Mass Index (BMI) 49.6 Intake & Output: Intake and Output for Last 24 Hours 04/07/25 04/08/25 04/09/25 23:59 23:59 23:59 Intake Total 150 / 150 100 / 100 Output Total 1300 / 1300 Balance -1150 / -1150 100 / 100 Lab / Micro Data 04/08/25 08:45 04/08/25 08:45 Radiography Diagnostic Testing: Radiology Impression Echocardiogram 04/08/25 05:55 Interpretation Summary Normal LV systolic function Ejection fraction 60-65% No prior echocardiogram to compare Ordering Physician: Ebonie Perez Referring Physician: Reji Luna; Aye Kim Performed By: Qing Vaughan, AGUSTO, RVT Physical Exam Narrative Abdomen without distention and appropriate tenderness throughout status post section. No new bleeding or seeping from the incision around the Mepilex type across the incision. Appropriate tenderness around incision line. Assessment & Plan (1) Postoperative wound infection: (2) Sinus bradycardia: COMMENT: Asymptomatic and workup negative. History of bradycardia prior to . Patient has remained afebrile and white count stable. No evidence of extension of infection after almost 2 days of Zosyn. PLAN: Plan to release patient to home with routine instructions to call with fever or feeling ill. Prescription for Augmentin sent previously by Dr. Kim to pharmacy. Return in the next week for incision check. I discussed with Jennifer that the gallbladder ultrasound has not yet been read and that she should discuss results with Dr. Kim as well as next steps, if any, for bradycardia.
--- NOTE | 2025-04-09 11:22 | DS.PCM_ITS ---
Providers Date of Admission: 04/07/25 Primary Care Physician: Dr. Reji Luna MD Consultations 04/07/25 19:34 Consult: Hospitalist Routine Consulting Provider: Jamal Dill Reason for Consult: Bradycardia EMERGENT Consult: No MD Notified: Yes Date Notified: 04/07/25 Time Notified: 19:36 Method of Notification: Verbal Reason For Visit: BRADYCARDIA POST OP WOUND INFECTION Diagnosis Discharge Diagnosis (1) Postoperative wound infection: Status: Acute Code(s): T81.49XA - Infection following a procedure, other surgical site, initial encounter (2) Sinus bradycardia: Status: Acute Code(s): R00.1 - Bradycardia, unspecified Plan: Plan to release patient to home with routine instructions to call with fever or feeling ill. Prescription for Augmentin sent previously by Dr. Kim to pharmacy. Return in the next week for incision check. I discussed with Jennifer that the gallbladder ultrasound has not yet been read and that she should discuss results with Dr. Kim as well as next steps, if any, for bradycardia. Medications at Discharge Home Medications multivitamin no.47-iron fum 27 mg-folate no.1 1 mg-dha 300 mg capsule (PNV-DHA) 1 cap PO DAILY 08/29/20 blood sugar diagnostic (Advanced Glucose Meter Test Strips) #100 ea 03/07/25 flash glucose scanning reader (FreeStyle Hardeep 2 [place]) #1 ea 03/07/25 lancets #200 ea 03/07/25 naproxen 500 mg tablet 500 mg PO BID PRN PRN Pain #30 tabs 03/28/25 acetaminophen 500 mg capsule 1,000 mg PO Q6H PRN pain 04/07/25 amoxicillin 875 mg-potassium clavulanate 125 mg tablet 1 tab PO Q12H #20 tabs 04/07/25 Hospital Course Summary of Care Provided Hospital Course: Patient was admitted to labor and delivery and had a CT scan done which showed some postoperative changes and possible early wound infection. She was noted to have bradycardia with her heart rate in the 40s and was admitted to the PCU with hospitalist and cardiology consult. Their workup for bradycardia was unremarkable. She was on Zosyn for nearly 2 days and was felt that with no fever, normal white count, and appropriate postop tenderness in the incision without visual evidence of infection that she could be managed outpatient with Augmentin. Zosyn is to be stopped after her current dose and patient to be discharged to home. Weight / BMI Weight Weight: 336 lb 6.806 oz Body Mass Index (BMI) 49.6 ABG / Lab / Microbiology Data 04/08/25 08:45 04/08/25 08:45 Radiography Diagnostic Testing: Radiology Impression Echocardiogram 04/08/25 05:55 Interpretation Summary Normal LV systolic function Ejection fraction 60-65% No prior echocardiogram to compare Ordering Physician: Ebonie Perez Referring Physician: Reji Luna; Aye Kim Performed By: Qing Vaughan, AGUSTO, RVT D/C Instructions DC O2, CPAP, BIPAP Needs Home O2 Discharge instructions: No Please Follow Up With: Aye Dey, DO When: Next week for incision check Meaningful Use Info Meaningful Use Meaningful Use Diagnoses (Choose all that apply): None applicable Discharge Plan Admission Admit Date/Time: 04/07/25 20:43 Attending Provider: Aye Dey Primary Care Provider: Reji Luna Consulting Providers: Ebonie Perez; Jamal Dill; Aye Dey; Tadeo Loza Discharge Orders/Prescriptions Prescriptions: New amoxicillin-pot clavulanate 875-125 mg tablet 1 tab PO Q12H Qty: 20 0RF No Action PNV-DHA 27 mg iron-1 mg -300 mg capsule 1 cap PO DAILY naproxen 500 mg tablet 500 mg PO BID PRN PRN (Reason: Pain) Qty: 30 1RF acetaminophen 500 mg capsule 1,000 mg PO Q6H PRN (Reason: pain) (DME) miiCard Hardeep 2 [place] Misc See Rx Instructions .ROUTE .MEDSUPPLY Qty: 1 0RF Rx Instructions: As directed (DME) Advanced Gluc Meter Test Strip Strip See Rx Instructions .Route Qty: 100 5RF Rx Instructions: As directed (DME) lancets Misc See Rx Instructions .ROUTE .MEDSUPPLY Qty: 200 2RF Rx Instructions: As directed, fasting and 2 hours post meals Referrals / Follow Up: Reji Luna MD [Primary Care Provider, Family Practice] Disposition Disposition (needs filled in before D/C Order can be placed): Home, Self Care
== END 2025-04-09 12:02 | disposition home or self-care (01) ==
LOC: PCU 21:19 → WPOUT 04-08 11:44
PROVIDERS: Admitting Provider Internal Medicine; PCP Family Medicine; Referring Provider Internal Medicine; Visit Provider Obstetrics & Gynecology
DX: O86.09 Infection of obstetric surgical wound, other surgical site (principal); E66.01 Morbid (severe) obesity due to excess calories; O99.893 Other specified diseases and conditions complicating puerperium; Z87.891 Personal history of nicotine dependence; R60.0 Localized edema; R00.1 Bradycardia, unspecified; O16.5 Unspecified maternal hypertension, complicating the puerperium; Z79.899 Other long term (current) drug therapy; O24.439 Gestational diabetes mellitus in the puerperium, unspecified control; O99.73 Diseases of the skin and subcutaneous tissue complicating the puerperium; L02.818 Cutaneous abscess of other sites; R94.8 Abnormal results of function studies of other organs and systems; O99.215 Obesity complicating the puerperium
CPT/HCPCS: 36415; 71045; 74177; 76705; 80048; 80307; 82565; 82962; 83615; 83735; 83880; 84439; 84443; 84450; 84460; 84550; 85025; 93005; 93306; 96365; 96366; 96375; 99221; Q9957; Q9967; A4216; G0378; G0379; J1938